=== PATIENT | female | born 1940 | race Caucasian/White ===

== ENCOUNTER 2016-09-11 23:02 | Emergency (ER) | payer MEDICARE, MEDICAID ==
[2016-09-11] MEDS ORDERED: NS 0.9% 1000 ML* 1,000 ML IV ONE (23:34)
--- NOTE | 2016-09-12 00:04 | ED ---
Eduard Brown Rebecca, scribed for Pito Newton MD on 09/11/16 at 2343 . Complex/Multi-Sys Presentation - HPI Summary HPI Summary: Pt is a 76 y/o F who presents to ED with a CC of generalized weakness and uncontrolled DM. Pt reports that starting "a few" days ago her "diabetes has been acting up." Per family member, her last BG tonight was 464 after which she was given 3 units of insulin (typical treatment). Additionally c/o moderate CP, ranked 6/10. PMHx anemia - receives "shots" every 4 weeks. Last saw her PCP 1 month ago, has an appointment on Wednesday (2 days from today). - History Of Current Complaint Chief Complaint: EDChestPainROMI Time Seen by Provider: 09/11/16 23:19 Hx Obtained From: Patient, Family/Charter Coach Driver - Family member Onset/Duration: Lasting Days, Still Present Timing: Constant Severity Currently: Moderate Location: Pain At: - Chest Aggravating Factor(s): Nothing Alleviating Factor(s): Nothing Associated Signs And Symptoms: Positive: Weakness - Generalized, Chest Pain, Other - uncontrolled DM - Allergies/Home Medications Allergies/Adverse Reactions: Allergies Allergy/AdvReac Type Severity Reaction Status Date / Time Codeine Allergy Intermediate Rash Verified 01/21/16 16:56 Levofloxacin [From Levaquin] Allergy Intermediate Agitation Verified 01/21/16 16 :56 Sulfa Antibiotics Allergy Intermediate Rash And Verified 01/21/16 16:56 Itching Home Medications: Home Medications Ascorbic Acid TAB* [Vitamin C TAB*] 1,000 mg PO DAILY 09/12/16 [History Confirmed 09/12/16] Aspirin [Aspirin 81 MG TAB] 81 mg PO DAILY 09/12/16 [History Confirmed 09/12/16] Pantoprazole TAB (NF) [Protonix TAB (NF)] 40 mg PO DAILY 09/12/16 [History Confirmed 09/12/16] PMH/Surg Hx/FS Hx/Imm Hx Endocrine/Hematology History: Reports: Hx Anticoagulant Therapy, Hx Blood Transfusions, Hx Diabetes - Type 2, Hx Thyroid Disease - Hypothyroidism, Hx Anemia, 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 Denies: Hx Systemic Lupus Erythematosus Cardiovascular History: Reports: Hx Angina, Hx Auto Implanted Cardiovert Defib, Hx Congestive Heart Failure, Hx Coronary Artery Disease, Hx Deep Vein Thrombosis - Man-made clot caused by nurse 40+ years ago, Hx Hypercholesterolemia, Hx Hypertension, Hx Pacemaker/ICD, Hx Valvular Heart Disease, Other Cardiovascular Problems/Disorders - Aortic valve replacement, bradycardia, cardiac catherization Denies: Hx Myocardial Infarction, Hx Rheumatic Fever, Hx Syncope Respiratory History: Reports: Hx Asthma, Hx Chronic Obstructive Pulmonary Disease (COPD), Hx Pneumonia Denies: Hx Lung Cancer, Hx Sleep Apnea GI History: Reports: Hx Ulcer - Peptic ulcer disease, Other GI Disorders - gastric bypass Denies: Hx Gastroesophageal Reflux Disease History: Reports: Other Problems/Disorders - UTIs, CKD Denies: Hx Kidney Stones, Hx Renal Disease Musculoskeletal History: Reports: Hx Arthritis - Rheumatoid, Hx Rheumatoid Arthritis, Hx Back Problems, Hx Osteoporosis Denies: Hx Gout, Hx Orthopedic Injury Sensory History: Reports: Hx Cataracts, Hx Contacts or Glasses, Other Sensory Impairments - Retinoplasty Denies: Hx Hearing Problem Opthamlomology History: Reports: Hx Cataracts, Hx Contacts or Glasses, Other Sensory Impairments - Retinoplasty Neurological History: Denies: Hx Dementia, Hx Developmental Delay, Hx Headaches, Hx Migraine, Hx Nerve Disease, Hx Seizures, Hx Spinal Cord Injury, Hx Transient Ischemic Attacks (TIA), Other Neuro Impairments/Disorders Psychiatric History: Reports: Hx Depression - Not currently - Cancer History Cancer Type, Location and Year: Two sisters had breast cancer - Surgical History Surgery Procedure, Year, and Place: Hysterectomy. Appendectomy. Tonsillectomy. Bilateral Knee Arthroscopy. Diabetic Retinopathy-eye surgery. Bilateral Cataract removal. Sinus Surgery. Florentin-en-y gastric bypass, 2007. Cholecystecomy 2009. Carpal Tunnel Surgery. Aortic Valve replacement, 2016, [facility] Hx Anesthesia Reactions: No - Immunization History Date of Tetanus Vaccine: utd Date of Influenza Vaccine: utd Infectious Disease History: Reports: Hx Clostridium Difficile - was under OP treatment, now IP. Denies: Hx Hepatitis, Hx Human Immunodeficiency Virus (HIV), Hx of Known/ Suspected MRSA, Hx Shingles, Hx Tuberculosis, Hx Known/Suspected VRE, Hx Known/ Suspected VRSA, History Other Infectious Disease, Traveled Outside the [place] in Last 30 Days - Family History Known Family History: Positive: Cardiac Disease, Diabetes, Other - Breast Cancer - Social History Alcohol Use: Rare Substance Use Type: Reports: None Hx Tobacco Use: Yes - quit > 20 yrs ago Smoking Status (MU): Former Smoker Type: Cigarettes Have You Smoked in the Last Year: No Review of Systems Positive: Other - Generalized weakness; uncontrolled DM Positive: Chest Pain - Moderate 08/01 All Other Systems Reviewed And Are Negative: Yes Physical Exam Triage Information Reviewed: Yes Vital Signs On Initial Exam: Initial Vitals Temp Pulse Resp BP Pulse Ox 97.3 F 65 20 134/56 99 09/11/16 23:09 09/11/16 23:09 09/11/16 23:09 09/11/16 23:09 09/11/16 23:09 Vital Signs Reviewed: Yes Appearance: Positive: Ill-Appearing, Pain Distress - mild discomfort, Thin Skin: Positive: Warm, Pale Head/Face: Positive: Normal Head/Face Inspection Eyes: Positive: NEMO Neck: Positive: Supple Respiratory/Lung Sounds: Positive: Clear to Auscultation, Breath Sounds Present Cardiovascular: Positive: RRR Abdomen Description: Positive: Nontender, Soft Bowel Sounds: Positive: Present Musculoskeletal: Positive: Strength/ROM Intact Neurological: Positive: Alert, Oriented to Person Place, Time Diagnostics - Vital Signs Vital Signs Temp Pulse Resp BP Pulse Ox 09/11/16 23:09 97.3 F 65 20 134/56 99 - Laboratory Result Diagrams: 09/12/16 00:50 09/12/16 00:50 Lab Statement: Any lab studies that have been ordered have been reviewed, and results considered in the medical decision making process. - Radiology CXR Xray Interpretation: No Acute Changes Radiology Interpretation Completed By: ED Physician - EKG 2318 Cardiac Rate: NL - 62 bpm EKG Interpretation: Paced rhythm, no STEMI Re-Evaluation - Re-Evaluation First Eval Re-Evaluation Time: 01:50 Change: Unchanged Comment: Discussed CXR, EKG and lab findings with the pt and her family member as well as D/C plan. She is stable. Complex Multi-Symp Course/Dx Assessment/Plan: Pt is a 76 y/o F who presents to ED with a CC of generalized weakness and uncontrolled DM. Pt reports that starting "a few" days ago her "diabetes has been acting up." Per family member, her last BG tonight was 464 after which she was given 3 units of insulin (typical treatment). Additionally c /o moderate CP, ranked /. PMHx anemia - receives "shots" every 4 weeks. Last saw her PCP 1 month ago, has an appointment on Wednesday (2 days from today). EKG reveals paced rhythm. CXR reveals no acute findings. She will be D/C to home with Dx of generalized weakness. She understands and agrees. - Diagnoses Provider Diagnoses: Generalized weakness Discharge - Discharge Plan Condition: Stable Disposition: HOME Patient Education Materials: Weakness (ED) Referrals: Vanesa Alexandra, CHAIN MAKER MACHINE [Primary Care Provider] - 3 Days The documentation as recorded by the Eduard jc Rebecca accurately reflects the service I personally performed and the decisions made by me, Pito Newton MD.
[2016-09-12 01:03] LABS: Hematocrit 27 % (35-47); Hemoglobin 8.5 g/dl (12.0-16.0); Mean Corpuscular HGB Conc 32 g/dl (31-36); Mean Corpuscular Hemoglobin 31 pg (27-31); Mean Corpuscular Volume 96 fL (80-97); Mean Platelet Volume 9 um3 (7.4-10.4); Red Blood Count 2.78 10^6/ul (4.0-5.4); Red Cell Distribution Width 15 % (10.5-15); White Blood Count 6.7 10^3/ul (3.5-10.8)
[2016-09-12 01:18] LABS: Albumin 2.8 g/dL (3.2-5.2); BUN/Creatinine Ratio 40.2 (8-20); Calcium 8.3 mg/dL (8.6-10.3); EGFR African American 57.7 (>60); EGFR Non-African American 44.9 (>60); Magnesium 2.1 mg/dL (1.9-2.7); Potassium 5.2 mmol/L (3.5-5.0); Total Bilirubin 0.2 mg/dL (0.2-1.0); Total Protein 6.8 g/dL (6.4-8.9)
[2016-09-12 01:21] LABS: Troponin I 0.03 ng/mL (<0.04)
[2016-09-12 02:05] VITALS: BP 123/51
[2016-09-12 02:28] LABS: TSH (Thyroid Stimulating Horm) 3.48 mcIU/mL (0.34-5.60)
--- NOTE | 2016-09-12 07:16 | RAD ---
INDICATION: Weakness. COMPARISON: Comparison is made with a prior chest x-ray study from November 13, 2015. Correlation is made with prior chest x-ray studies from December 09, 2012, December 28, 2014 and November 13, 2015. Correlation is also made with a prior CT angiogram of the chest from November 13, 2015. TECHNIQUE: Dual-energy PA and lateral views of the chest were obtained. FINDINGS: There is a dual-chamber transvenous pacemaker present. There is a metallic stent overlying the aortic valve region. The heart is within normal limits in size. There is a faint 6 mm nodule which projects over the right midlung. This is only seen in the PA view and is not seen on prior studies. The lungs are otherwise clear. No pleural effusion is seen. The results of this exam were discussed with the referring clinician. IMPRESSION: 1. NO EVIDENCE FOR ACUTE FINDING. 2. POSSIBLE RIGHT LUNG PULMONARY NODULE. RECOMMEND A NONCONTRAST CT OF THE CHEST FOR FURTHER EVALUATION.
== END 2016-09-12 02:05 | disposition home or self-care (01) ==
LOC: ED 23:02
DX: R53.1 Weakness (principal); Z87.891 Personal history of nicotine dependence; Z79.01 Long term (current) use of anticoagulants; M06.9 Rheumatoid arthritis, unspecified; E03.9 Hypothyroidism, unspecified; E11.8 Type 2 diabetes mellitus with unspecified complications; Z88.5 Allergy status to narcotic agent; Z88.2 Allergy status to sulfonamides; Z79.82 Long term (current) use of aspirin; J44.9 Chronic obstructive pulmonary disease, unspecified
CPT/HCPCS: 36415; 71020; 80053; 83605; 83735; 84443; 84484; 85025; 93005; 96360; 99283

== ENCOUNTER 2016-11-09 11:21 | Inpatient (IN) | payer MEDICARE, MEDICAID ==
--- NOTE | 2016-11-09 13:37 | RAD ---
Indication: Shortness of breath. 2 views of the chest and shape no mediastinal shift. Pacemaker leads are in place. Mild interstitial edema is noted. When compared to previous exam of September 11, 2016 no significant change is noted. There is likely superimposed COPD. Patient is status post aortic valve replacement. IMPRESSION: Likely vascular congestion superimposed upon COPD. No pneumonia is noted.
[2016-11-09 13:54] LABS: Hematocrit 25 % (35-47); Mean Corpuscular HGB Conc 32 g/dl (31-36); Mean Corpuscular Hemoglobin 30 pg (27-31); Mean Corpuscular Volume 92 fL (80-97); Mean Platelet Volume 9 um3 (7.4-10.4); Red Blood Count 2.67 10^6/ul (4.0-5.4); Red Cell Distribution Width 15 % (10.5-15); White Blood Count 8.6 10^3/ul (3.5-10.8)
--- NOTE | 2016-11-09 14:06 | ED ---
Sarthak Brown Alfonso, scribed for Casper Moctezuma MD on 11/09/16 at 1238 . Shortness of Breath - HPI Summary HPI Summary: This patient is a 76 year old F [facility] referred from Dr. Archibald accompanied by son with a chief complaint of SOB since 1 week ago. The patient rates the pain 6/10 in severity. Symptoms alleviated by nothing. Patient reports CP (left sided), rib pain, and productive cough (clear phlegm). Patient denies fever. She is been on abx for the last 3 days. PMHx includes IDDM, COPD, and asthma. - History of Current Complaint Chief Complaint: EDShortnessOfBreath Time Seen by Provider: 11/09/16 12:22 Hx Obtained From: Patient Onset/Duration: Sudden Onset, Lasting Weeks - 1, Still Present Timing: Constant Current Severity: Moderate Alleviating Factors: Nothing Associated Signs & Symptoms: Cough (Productive), Chest Pain w/Cough - Allergy/Home Medications Allergies/Adverse Reactions: Allergies Allergy/AdvReac Type Severity Reaction Status Date / Time Codeine Allergy Intermediate Rash Verified 01/21/16 16:56 Levofloxacin [From Levaquin] Allergy Intermediate Agitation Verified 01/21/16 16 :56 Sulfa Antibiotics Allergy Intermediate Rash And Verified 01/21/16 16:56 Itching PMH/Surg Hx/FS Hx/Imm Hx Endocrine/Hematology History: Reports: Hx Anticoagulant Therapy, Hx Blood Transfusions, Hx Diabetes - Type 2, Hx Thyroid Disease - Hypothyroidism, Hx Anemia, 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 Denies: Hx Systemic Lupus Erythematosus Cardiovascular History: Reports: Hx Angina, Hx Auto Implanted Cardiovert Defib, Hx Congestive Heart Failure, Hx Coronary Artery Disease, Hx Deep Vein Thrombosis - Man-made clot caused by nurse 40+ years ago, Hx Hypercholesterolemia, Hx Hypertension, Hx Pacemaker/ICD, Hx Valvular Heart Disease, Other Cardiovascular Problems/Disorders - Aortic valve replacement, bradycardia, cardiac catherization Denies: Hx Myocardial Infarction, Hx Rheumatic Fever, Hx Syncope Respiratory History: Reports: Hx Asthma, Hx Chronic Obstructive Pulmonary Disease (COPD), Hx Pneumonia Denies: Hx Lung Cancer, Hx Sleep Apnea GI History: Reports: Hx Ulcer - Peptic ulcer disease, Other GI Disorders - gastric bypass Denies: Hx Gastroesophageal Reflux Disease History: Reports: Other Problems/Disorders - UTIs, CKD Denies: Hx Kidney Stones, Hx Renal Disease Musculoskeletal History: Reports: Hx Arthritis - Rheumatoid, Hx Rheumatoid Arthritis, Hx Back Problems, Hx Osteoporosis Denies: Hx Gout, Hx Orthopedic Injury Sensory History: Reports: Hx Cataracts, Hx Contacts or Glasses, Other Sensory Impairments - Retinoplasty Denies: Hx Hearing Problem Opthamlomology History: Reports: Hx Cataracts, Hx Contacts or Glasses, Other Sensory Impairments - Retinoplasty Neurological History: Denies: Hx Dementia, Hx Developmental Delay, Hx Headaches, Hx Migraine, Hx Nerve Disease, Hx Seizures, Hx Spinal Cord Injury, Hx Transient Ischemic Attacks (TIA), Other Neuro Impairments/Disorders Psychiatric History: Reports: Hx Depression - Not currently - Cancer History Cancer Type, Location and Year: Two sisters had breast cancer - Surgical History Surgery Procedure, Year, and Place: Hysterectomy. Appendectomy. Tonsillectomy. Bilateral Knee Arthroscopy. Diabetic Retinopathy-eye surgery. Bilateral Cataract removal. Sinus Surgery. Florentin-en-y gastric bypass, 2007. Cholecystecomy 2008. Carpal Tunnel Surgery. Aortic Valve replacement, 2016, [facility] Anesthesia Reactions: No - Immunization History Date of Tetanus Vaccine: utd Date of Influenza Vaccine: utd Infectious Disease History: No Infectious Disease History: Reports: Hx Clostridium Difficile - was under OP treatment, now IP. Denies: Hx Hepatitis, Hx Human Immunodeficiency Virus (HIV), Hx of Known/ Suspected MRSA, Hx Shingles, Hx Tuberculosis, Hx Known/Suspected VRE, Hx Known/ Suspected VRSA, History Other Infectious Disease, Traveled Outside the [place] in Last 30 Days - Family History Known Family History: Positive: Cardiac Disease, Diabetes, Other - Breast Cancer - Social History Alcohol Use: Rare Substance Use Type: Reports: None Hx Tobacco Use: Yes - quit > 20 yrs ago Smoking Status (MU): Former Smoker Type: Cigarettes Have You Smoked in the Last Year: No Review of Systems Negative: Fever Positive: Chest Pain Positive: Shortness Of Breath, Cough Positive: Other - rib pain All Other Systems Reviewed And Are Negative: Yes Physical Exam Triage Information Reviewed: Yes Vital Signs On Initial Exam: Initial Vitals Temp Pulse Resp BP Pulse Ox 97.3 F 69 17 110/65 100 11/09/16 11:22 11/09/16 11:22 11/09/16 11:22 11/09/16 11:22 11/09/16 11:22 Vital Signs Reviewed: Yes Appearance: Positive: Well-Appearing, No Pain Distress Skin: Positive: Warm, Skin Color Reflects Adequate Perfusion, Dry Head/Face: Positive: Normal Head/Face Inspection Eyes: Positive: Normal ENT: Positive: Normal ENT inspection Neck: Positive: Supple, Nontender Respiratory/Lung Sounds: Positive: Breath Sounds Present, Other - Wet cough Cardiovascular: Positive: RRR Abdomen Description: Positive: Nontender, Soft Bowel Sounds: Positive: Present Musculoskeletal: Positive: Other - Mild pitting edema bilaterally Neurological: Positive: Normal, Sensory/Motor Intact, Alert, Oriented to Person Place, Time Psychiatric: Positive: Affect/Mood Appropriate Diagnostics - Vital Signs Vital Signs Temp Pulse Resp BP Pulse Ox 11/09/16 12:20 97.1 F 62 20 133/62 99 11/09/16 11:22 97.3 F 69 17 110/65 100 - Laboratory Lab Results: Lab Results 11/09/16 Range/Units 13:35 WBC 8.6 (3.5-10.8) 10^3/ul RBC 2.67 L (4.0-5.4) 10^6/ul Hgb 8.0 L (12.0-16.0) g/dl Hct 25 L (35-47) % MCV 92 (80-97) fL MCH 30 (27-31) pg MCHC 32 (31-36) g/dl RDW 15 (10.5-15) % Plt Count 172 (150-450) 10^3/ul MPV 9 (7.4-10.4) um3 Neut % (Auto) 83.9 H (38-83) % Lymph % (Auto) 8.4 L (25-47) % [place] % (Auto) 4.8 (1-9) % Eos % (Auto) 2.4 (0-6) % Baso % (Auto) 0.5 (0-2) % Absolute Neuts (auto) 7.2 (1.5-7.7) 10^3/ul Absolute Lymphs (auto) 0.7 L (1.0-4.8) 10^3/ul Absolute Monos (auto) 0.4 (0-0.8) 10^3/ul Absolute Eos (auto) 0.2 (0-0.6) 10^3/ul Absolute Basos (auto) 0 (0-0.2) 10^3/ul Absolute Nucleated RBC 0 10^3/ul Nucleated RBC % 0 Result Diagrams: 11/09/16 13:35 Lab Statement: Any lab studies that have been ordered have been reviewed, and results considered in the medical decision making process. Course/Dx - Course Course Of Treatment: Ms. Brittanie Carter presented with SOB which has been coming on for the last few days. She has been on outpatient Abx but is not sure what. She is anemic and has some pulmonary edema and underlying COPD. She is being admitted to the hospitalist service. - Diagnoses Provider Diagnoses: Respiratory insufficiency - Physician Notifications Discussed Care of Patient With: Maude Seo Time Discussed With Above Provider: 12:42 Instructed by Provider To: Other - Consulted Dr. Seo (hospitalist) regarding the pt. - Critical Care Time Critical Care Time: 30-74 min Discharge - Discharge Plan Condition: Stable Disposition: ADMITTED TO [facility] Referrals: Vanesa Alexandra, BASKET MAKER [Primary Care Provider] - The documentation as recorded by the Sarthak jc Alfonso accurately reflects the service I personally performed and the decisions made by me, Casper Moctezuma MD.
[2016-11-09 14:17] LABS: ALT 7 U/L (7-52); Albumin 3.1 g/dL (3.2-5.2); Alkaline Phosphatase 55 U/L (34-104); BUN/Creatinine Ratio 27.5 (8-20); Blood Urea Nitrogen 36 mg/dL (6-24); C Reactive Protein 44.08 mg/L (< 5.00); CO2 Carbon Dioxide 22 mmol/L (22-32); Calcium 8.4 mg/dL (8.6-10.3); Chloride 107 mmol/L (101-111); EGFR African American 50.6 (>60); EGFR Non-African American 39.4 (>60); Glucose 129 mg/dL (70-100); Sodium 134 mmol/L (133-145); Total Protein 7.1 g/dL (6.4-8.9)
[2016-11-09 14:18] LABS: Troponin I 0.05 ng/mL (<0.04)
[2016-11-09] MEDS ORDERED: methylPREDNISolone 125 MG* 2 ML VIAL IV ONE (14:24)
[2016-11-09] MEDS ORDERED: Furosemide IV* 10 MG/ML 10 ML VIAL (100 MG) IV ONE (14:24)
[2016-11-09 15:01] LABS: Anion Gap 5 mmol/L (2-11)
--- NOTE | 2016-11-09 17:35 | ADMNOTE ---
Subjective Date of Service: 11/09/16 Interval History: ADMISSION HISTORY AND PHYSICAL EXAM: Allergies Allergy/AdvReac Type Severity Reaction Status Date / Time Codeine Allergy Intermediate Rash Verified 01/21/16 16:56 Levofloxacin [From Levaquin] Allergy Intermediate Agitation Verified 01/21/16 16 :56 Sulfa Antibiotics Allergy Intermediate Rash And Verified 01/21/16 16:56 Itching Home Medications Medication Instructions Recorded Confirmed Type Ferrous Sulfate TAB* 325 mg PO DAILY 07/16/14 09/12/16 History Levothyroxine TAB* [Synthroid 25 25 mcg PO DAILY 12/28/14 09/12/16 History MCG TAB*] Simvastatin (NF) [Zocor (NF)] 40 mg PO DAILY 12/28/14 09/12/16 History Cyanocobalamin TAB* [Vitamin B12 600 mcg PO BID 03/25/15 09/12/16 History TAB*] Carvedilol TAB* [Coreg TAB*] 12.5 mg PO BID #0 05/03/15 09/12/16 History Nitroglycerin TAB 0.4 MG* 0.4 mg SL Q5M PRN 05/03/15 09/12/16 History Hydroxychloroquine TAB* [Plaquenil 400 mg PO DAILY 10/25/15 09/12/16 History TAB*] Albuterol 2.5MG/3ML (0.083%)* 2.5 mg INH QID PRN 10/31/15 09/12/16 History [Ventolin 2.5 MG/3 ML NEB.SHERRI*] Calcium Carbonate (Antacid) [Tums 1,000 mg PO BID 10/31/15 09/12/16 History Ultra 1000] Insulin NPH Isophane & Reg (Hu 10 units SUBCUT QPM 10/31/15 09/12/16 History [Humulin 70/30 Kwikpen (70-30) 100 Unit/ml] Insulin NPH Isophane & Reg (Hu 20 units SUBCUT QAM 10/31/15 09/12/16 History [Humulin 70/30 Kwikpen (70-30) 100 Unit/ml] Lisinopril TAB* [Prinivil TAB 5 2.5 mg PO DAILY 10/31/15 09/12/16 History MG*] amLODIPine TAB* [Norvasc 5 mg TAB*] 10 mg PO DAILY 10/31/15 09/12/16 History Torsemide [Demadex 10 MG-] 10 mg PO DAILY 12/05/15 09/12/16 History guaiFENesin ER TAB [Mucinex*] 600 mg PO DAILY 12/05/15 09/12/16 History Ascorbic Acid TAB* [Vitamin C 1,000 mg PO DAILY 09/12/16 09/12/16 History TAB*] Aspirin [Aspirin 81 MG TAB] 81 mg PO DAILY 09/12/16 09/12/16 History Pantoprazole TAB (NF) [Protonix 40 mg PO DAILY 09/12/16 09/12/16 History TAB (NF)] HPI: The patient has been coughing and SOB about a week. She was recently started on tofacitinib (Xeljanz) for RA, but Dr. Shelley stopped it due to her cough and possible immunosuppression-related resp infection. She does not weigh herself. She eats a low-salt diet. She denies sweats, chills. She took her temperature and it was normal at home. She ate less today and only took 7 units of insulin instead of her usual 10. She generally does not take her prescribed evening dose of insulin. No one else in her home has been ill recently. Family History: Findings - unrmarkable Social History: Findings - Quit smoking 40+ yrs ago. No alcohol abuse. Lives with her son and his children Past Medical History: Findings - TAVR 03/2015 in [place]. RA, DM, monthly EPO for anemia per Dr. Broderick Review of Systems - Measurements Intake and Output: Intake and Output Last 24 Hours 11/07/16 11/08/16 11/09/16 11/10/16 06:59 06:59 06:59 06:59 Weight 140 lb - Review of Systems Constitutional Symptoms: Negative: Weight Gain, Weight Loss, Weakness, Fatigue, Fever, Night Sweats, Unexplained Falls, Other Dermatology: Positive: Normal HEENT: Positive: Normal Eyes: Positive: Normal Thyroid: Positive: Normal Pulmonary: Positive: Cough, Shortness of Breath Cardiology: Positive: Normal Gastroenterology: Positive: Anorexia Musculoskeletal: Positive: Joint Pain, Joint Stiffness, Arthritis Endocrinology: Positive: Diabetes Mellitus Hematologic/Lymphatic: Positive: Anemia Neurology: Positive: Normal Psychiatry: Positive: Normal Allergic/Immunologic: Negative: Hx Anaphylaxis, Hx Angioedema, Hx Environmental, Hx Seasonal, Athsma, Hx HIV, Immunocompromise, Swollen Glands LymphNodes, Other Objective Vital Signs 11/09/16 11/09/16 11/09/16 11:22 12:20 12:22 Temperature 97.3 F 97.1 F Pulse Rate 69 62 64 Respiratory 17 20 Rate Blood Pressure 110/65 133/62 (mmHg) O2 Sat by Pulse 100 99 98 Oximetry 11/09/16 11/09/16 11/09/16 12:31 13:00 14:00 Temperature Pulse Rate 75 61 60 Respiratory 25 20 19 Rate Blood Pressure 143/65 141/62 (mmHg) O2 Sat by Pulse 99 97 98 Oximetry 11/09/16 11/09/16 11/09/16 14:43 14:57 15:10 Temperature Pulse Rate 63 62 Respiratory 19 19 Rate Blood Pressure 147/66 145/62 (mmHg) O2 Sat by Pulse 98 98 Oximetry 11/09/16 15:11 Temperature Pulse Rate 73 Respiratory 14 Rate Blood Pressure (mmHg) O2 Sat by Pulse 92 Oximetry Oxygen Devices in Use Now: None Appearance: Alert, partly up in bed. In fair spirits. Frequent mild dry cough during my visit. Eyes: No Scleral Icterus Neck: NL Appearance and Movements; NL JVP, No Thyroid Enlargement, Masses Respiratory: Symmetrical Chest Expansion and Respiratory Effort, Clear to Auscultation, Clear to Percussion Cardiovascular: NL Sounds; No Murmurs; No JVD, RRR, No Edema, - Abdominal: NL Sounds; No Tenderness; No Distention, No Hepatosplenomegaly, - Extremities: No Edema, No Clubbing, Cyanosis Skin: No Rash or Ulcers, No Nodules or Sclerosis Neurological: Alert and Oriented x 3, NL Sensation Result Diagrams: 11/09/16 13:35 11/09/16 13:35 Additional Lab and Data: Lab Results 11/09/16 Range/Units 13:35 WBC 8.6 (3.5-10.8) 10^3/ul RBC 2.67 L (4.0-5.4) 10^6/ul Hgb 8.0 L (12.0-16.0) g/dl Hct 25 L (35-47) % MCV 92 (80-97) fL MCH 30 (27-31) pg MCHC 32 (31-36) g/dl RDW 15 (10.5-15) % Plt Count 172 (150-450) 10^3/ul MPV 9 (7.4-10.4) um3 Neut % (Auto) 83.9 H (38-83) % Lymph % (Auto) 8.4 L (25-47) % [place] % (Auto) 4.8 (1-9) % Eos % (Auto) 2.4 (0-6) % Baso % (Auto) 0.5 (0-2) % Absolute Neuts (auto) 7.2 (1.5-7.7) 10^3/ul Absolute Lymphs (auto) 0.7 L (1.0-4.8) 10^3/ul Absolute Monos (auto) 0.4 (0-0.8) 10^3/ul Absolute Eos (auto) 0.2 (0-0.6) 10^3/ul Absolute Basos (auto) 0 (0-0.2) 10^3/ul Absolute Nucleated RBC 0 10^3/ul Nucleated RBC % 0 Assess/Plan/Problems-Billing Assessment: - Patient Problems (1) CHF (congestive heart failure) Current Visit: Yes Status: Acute Code(s): I50.9 - HEART FAILURE, UNSPECIFIED SNOMED Code(s): 57734067 Comment: BNP elevated. Reduced LVEF 03/2105, will repeat echo 11/10. Received furosemide 60 mg IV in ED as well as methylpednisolone. Dr. Lowry is her tennis director locally. Exam benign but pt states she voided twice, a large amount each time, before I saw her in the ED. (2) Rheumatoid arthritis Current Visit: No Status: Chronic Priority: Low Code(s): M06.9 - RHEUMATOID ARTHRITIS, UNSPECIFIED SNOMED Code(s): 09527278 Comment: Continue hydoxychloroquine. Fup Dr. Shelley. (3) Anemia Current Visit: No Status: Acute Priority: High Onset Date: 06/28/14 Code (s): D64.9 - ANEMIA, UNSPECIFIED SNOMED Code(s): 729759510 Comment: Was scheduled for monthly EPO the DOA, can catch up with Dr. Broderick after discharge. (4) Diabetes Current Visit: No Status: Chronic Priority: Medium Code(s): E11.9 - TYPE 2 DIABETES MELLITUS WITHOUT COMPLICATIONS SNOMED Code(s): 48258844 Comment: Expect high glucose values for a day or so after IV methylprednisolone 125 mg in ED 11/09. Lispro SS ordered. Can resume her insulin pen on discharge.
[2016-11-09] MEDS ORDERED: Nitroglycerin TAB 0.4 MG* 0.4 MG TAB SL PRN (17:53)
[2016-11-09] MEDS ORDERED: Albuterol 2.5 MG/3 ML NEB.SOL* (0.083%) INH PRN (17:53)
[2016-11-09] MEDS ORDERED: Dextrose 50% Syringe 50 ML* 25 GM/50 ML SYRINGE IV PUSH PRN (18:17)
[2016-11-09] MEDS: Carvedilol TAB* 6.25 MG PO SCH (20:40)
[2016-11-09] MEDS: Benzonatate CAP* 100 MG PO SCH (20:40)
[2016-11-09] MEDS: Calcium Carbonate CHEW TAB* 500 MG (TUMS) PO SCH (20:44)
[2016-11-09] MEDS: Insulin LISPRO* 1 UNITS UNIT SUBCUT SCH (20:48)
[2016-11-09] MEDS: Heparin VIAL(*) 5000 UNITS/ML VIAL (FIVE THOUSAND) SUBCUT SCH (22:49)
[2016-11-10] MEDS ORDERED: guaiFENesin LIQ* 100 MG/5 ML UDC PO PRN (02:50)
[2016-11-10] MEDS: Levothyroxine TAB* 25 MCG TAB PO SCH (06:08)
[2016-11-10] MEDS: Heparin VIAL(*) 5000 UNITS/ML VIAL (FIVE THOUSAND) SUBCUT SCH ×3 (06:09→22:17)
[2016-11-10] MEDS: Torsemide TAB* 20 MG PO SCH (08:51)
[2016-11-10] MEDS: Hydroxychloroquine TAB* 200 MG PO SCH (08:52)
[2016-11-10] MEDS: Omeprazole CAP* 20 MG PO SCH (08:53)
[2016-11-10] MEDS: Benzonatate CAP* 100 MG PO SCH ×3 (08:53→22:19)
[2016-11-10] MEDS: Calcium Carbonate CHEW TAB* 500 MG (TUMS) PO SCH ×2 (08:53→22:21)
[2016-11-10] MEDS: Aspirin EC Low Dose* 81 MG TAB.EC PO SCH (08:54)
[2016-11-10] MEDS: Lisinopril TAB* 5 MG PO SCH (08:54)
[2016-11-10] MEDS: Atorvastatin* 20 MG TAB PO SCH (08:54)
[2016-11-10] MEDS: Ferrous Sulfate TAB* 325 MG PO SCH (08:54)
[2016-11-10] MEDS: guaiFENesin ER TAB 600 MG PO SCH (08:55)
[2016-11-10] MEDS: Insulin LISPRO* 1 UNITS UNIT SUBCUT SCH ×4 (08:55→22:10)
[2016-11-10] MEDS: Carvedilol TAB* 6.25 MG PO SCH ×2 (08:55→22:20)
--- NOTE | 2016-11-10 11:52 | ECHO ---
Patient: LEATHA AMAYA [facility] Rec#: [id number] : 1940 Date: 11/10/2016 Age: 76y Height: 165.1 cm / 65.0 in Weight: 63.5 kg / 140.0 lbs Sex: F BSA: 1.7 Room#: [facility] Admit Date#: 11/09/2016 Type: Inpatient Referring: Gordy Mccormick MD Reading: Gino Marroquin MD [employer] Liner Helper: Iman Carlton,JULIANNA,RDMS CC: Vanesa Alexandra, STARR Transthoracic Echocardiogram Indication: CHF BP: 135/58 HR: 69 Rhythm: NSR Findings History: TAVR, anemia, DM, COPD, AFIB, pacemaker, HTN, HLD Technical Comments: The study quality is good. Completed 1110 Left Ventricle: The left ventricular chamber size is normal. Mild concentric left ventricular hypertrophy is observed. Basal interventricular septum shows moderate thickening. Global left ventricular wall motion and contractility are within normal limits. Left ventricular systolic function is at the lower limits of normal. The estimated ejection fraction is 50-55%. Post surgical hypokinesis of the interventricular septum is observed consistent with valve replacement. There is abnormal ventricular septal wall motion consistent with right ventricular pacemaker. Abnormal left ventricular diastolic filling is observed, consistent with impaired relaxation. Left Atrium: The left atrium is moderately dilated. Right Ventricle: The right ventricular chamber size and systolic function are within normal limits. Right Atrium: The right atrium is mild to moderately dilated. A pacemaker wire is visualized in the right atrium. Aortic Valve: There is a trace of aortic regurgitation. The mean gradient of the aortic valve is 8.8 mmHg. The aortic valve area, by peak velocities, is calculated at 2 cm2. A bio-prosthetic aortic valve is present. The prosthetic aortic valve leaflets are normal. The bio-prosthetic aortic valve appears to be functioning normally. Mitral Valve: There is mitral annular calcification. The mitral valve leaflets are mildly thickened. There is mild to moderate mitral regurgitation. There is mild mitral stenosis. Tricuspid Valve: The tricuspid valve leaflets are normal. There is moderate tricuspid regurgitation. There is evidence of mild to moderate pulmonary hypertension. Pulmonic Valve: The pulmonic valve appears normal. There is mild to moderate pulmonic regurgitation. Pericardium: There is no significant pericardial effusion. Aorta: There is no dilatation of the ascending aorta. There is no dilatation of the aortic arch. The aortic root is normal in size. Pulmonary Artery: The main pulmonary artery appears normal. Venous: The inferior vena cava is dilated. There is less than 50% respiratory change in the inferior vena cava dimension. Summary: There are no significant changes when compared to the previous study done on 06/28/15 Conclusions Mild concentric left ventricular hypertrophy is observed. The estimated ejection fraction is 50-55%. Left ventricular systolic function is at the lower limits of normal. Post surgical hypokinesis of the interventricular septum is observed consistent with valve replacement. There is abnormal ventricular septal wall motion consistent with right ventricular pacemaker. A bio-prosthetic aortic valve is present. The prosthetic aortic valve leaflets are normal. The bio-prosthetic aortic valve appears to be functioning normally. There is mild to moderate mitral regurgitation. There is mild mitral stenosis. There is moderate tricuspid regurgitation. There is evidence of mild to moderate pulmonary hypertension. There is no significant pericardial effusion. There are no significant changes when compared to the previous study done on 06/28/15 Measurements Name Value Normal Range RVIDd (AP) 2D 3.3 cm (0.9 - 2.6) RVDdMajor (2D) 3.6 cm (2.2 - 4.4) RAd ISD 4CH 5 cm (3.4 - 4.9) RA (A4C)W 5.5 cm (2.9 - 4.6) IVSd (2D) 1.5 cm (0.6 - 1) LVPWd (2D) 1.1 cm (0.6 - 1) LVIDd (2D) 5.4 cm (3.6 - 5.4) LVIDs (2D) 4.4 cm - LV FS (2D) 18 % (25 - 45) Aortic Annulus 2 cm (1.4 - 2.6) Ascending Ao 3.3 cm (2.1 - 3.4) Aortic arch 2.5 cm (1.8 - 3.4) LA dimension (AP) 2D 3.9 cm (2.3 - 3.8) LAd ISD 4CH 5.6 cm (2.9 - 5.3) LA ISD 4CH W 4.6 cm (2.5 - 4.5) Name Value Normal Range LA ESV SP 4CH (A/L) 79.54 ml - LA ESV SP 2CH (A/L) 61.44 ml - LA ESV BP (A/L) 73.22 ml - LA ESV BP (A/L) index 43 ml/m2 - LA ESV SP 4CH (MOD) 75.3 ml - LA ESV SP 2CH (MOD) 57.3 ml - Name Value Normal Range MV E-wave Vmax 1.1 m/sec - MV deceleration time 124 msec - MV A-wave Vmax 1.5 m/sec - MV E:A ratio 0.7 ratio - LV septal e' Vmax 0.04 m/sec - LV lateral e' Vmax 0.05 m/sec - LV E:e' septal ratio 27.5 ratio - LV E:e' lateral ratio 22 ratio - Name Value Normal Range AV Vmax 1.9 m/sec - AV VTI 50 cm - AV peak gradient 14 mmHg - AV mean gradient 8.8 mmHg - LVOT diameter 2 cm - LVOT Vmax 1.2 m/sec - LVOT VTI 29.4 cm - LVOT peak gradient 6 mmHg - LVOT mean gradient 2.9 mmHg - DOI (VTI) 0.6 ratio - ITA (continuity Vmax) 2 cm2 - ITA (continuity VTI) 2 cm2 - AR PHT 515.8 msec - AR peak gradient 55.85 mmHg - Name Value Normal Range MV Vmax 1.7 m/sec - MV VTI 48 cm - MV peak gradient 12 mmHg - MV mean gradient 4.8 mmHg - MV PHT 76 msec - MR Vmax 5.8 m/sec - MR VTI 221 cm - MR volume (PISA) 32 ml - MR flow (PISA) 76 ml/sec - MR ERO 14 cm2 - MR PISA radius 0.7 cm - MR alias Vmax 27 cm/sec - MVA (PHT) 2.9 cm2 - MVA (continuity VTI) 2 cm2 - Name Value Normal Range TR Vmax 3 m/sec - TR peak gradient 36 mmHg - RAP 8 mmHg - RVSP 44 mmHg - IVC diameter 2.3 cm - Name Value Normal Range PV Vmax 1 m/sec - PV peak gradient 4 mmHg -
[2016-11-10] MEDS ORDERED: Insulin LISPRO* 1 UNITS UNIT SUBCUT ONE ×2 (17:47→17:57)
[2016-11-10] MEDS ORDERED: Dextrose 50% Syringe 50 ML* 25 GM/50 ML SYRINGE IV PUSH PRN (17:47)
--- NOTE | 2016-11-10 21:31 | PN ---
Subjective Date of Service: 11/10/16 Interval History: Pt with coughing spasm last night with associated SOB. But otherwise feeling improved. Had gained back a lot of weight (after joe of gastric bypass) Family History: Findings - unrmarkable Social History: Findings - Quit smoking 40+ yrs ago. No alcohol abuse. Lives with her son and his children Past Medical History: Findings - TAVR 03/2015 in [place]. RA, DM, monthly EPO for anemia per Dr. Broderick Objective Active Medications: Albuterol (Ventolin 2.5 Mg/3 Ml Neb.Rivka*) 2.5 mg INH QID PRN PRN Reason: SOB/WHEEZING Aspirin (Aspirin Ec Low Dose*) 81 mg PO DAILY [facility] Last Admin: 11/10/16 08:54 Dose: 81 mg Atorvastatin Calcium (Lipitor*) 20 mg PO DAILY [facility] Last Admin: 11/10/16 08:54 Dose: 20 mg Benzonatate (Tessalon Cap*) 200 mg PO TID [facility] Last Admin: 11/10/16 13:29 Dose: 200 mg Calcium Carbonate (Tums*) 1,000 mg PO BID [facility] Last Admin: 11/10/16 08:53 Dose: 1,000 mg Carvedilol (Coreg Tab*) 12.5 mg PO BID [facility] Last Admin: 11/10/16 08:55 Dose: 12.5 mg Dextrose (D50w Syringe 50 Ml*) 12.5 gm IV PUSH .FOR FS < 60 - SS PRN PRN Reason: FS < 60 Ferrous Sulfate (Ferrous Sulfate Tab*) 325 mg PO DAILY [facility] Last Admin: 11/10/16 08:54 Dose: 325 mg Guaifenesin (Mucinex*) 600 mg PO DAILY [facility] Last Admin: 11/10/16 08:55 Dose: 600 mg Guaifenesin (Robitussin*) 5 ml PO Q6H PRN PRN Reason: COUGH Heparin Sodium (Porcine) (Heparin Vial(*)) 5,000 units SUBCUT Q8HR [facility] Last Admin: 11/10/16 13:30 Dose: 5,000 units Hydroxychloroquine Sulfate (Plaquenil Tab*) 400 mg PO DAILY [facility] Last Admin: 11/10/16 08:52 Dose: 400 mg Insulin Glargine (Lantus(*)) 7 units SUBCUT Q12H [facility] Insulin Human Lispro (Humalog*) 0 units SUBCUT ACHS [facility] PRN Reason: Protocol Last Admin: 11/10/16 17:49 Dose: Not Given Levothyroxine Sodium (Synthroid Tab*) 25 mcg PO DAILY@0600 [facility] Last Admin: 11/10/16 06:08 Dose: 25 mcg Lisinopril (Prinivil Tab*) 2.5 mg PO DAILY [facility] Last Admin: 11/10/16 08:54 Dose: 2.5 mg Nitroglycerin (Nitroglycerin Tab 0.4 Mg*) 0.4 mg SL Q5M PRN PRN Reason: ANGINA (Cyanocobalamin (600mcg)) 1 dose PO BID [facility] Last Admin: 11/10/16 16:45 Dose: Not Given Omeprazole (Prilosec Cap*) 20 mg PO DAILY@0730 [facility] Last Admin: 11/10/16 08:53 Dose: 20 mg Torsemide (Demadex*) 10 mg PO DAILY [facility] Last Admin: 11/10/16 08:51 Dose: 10 mg Vital Signs 11/09/16 11/10/16 11/10/16 23:49 03:38 07:33 Temperature 98.2 F 97.7 F Pulse Rate 61 66 Respiratory 20 16 18 Rate Blood Pressure 124/60 128/51 (mmHg) O2 Sat by Pulse 99 98 Oximetry 11/10/16 11/10/16 11/10/16 07:59 11:02 15:30 Temperature 97.7 F 97.7 F 97.9 F Pulse Rate 68 71 61 Respiratory 20 18 20 Rate Blood Pressure 134/58 146/57 133/60 (mmHg) O2 Sat by Pulse 100 98 100 Oximetry 11/10/16 19:28 Temperature 97.7 F Pulse Rate 61 Respiratory 20 Rate Blood Pressure 140/53 (mmHg) O2 Sat by Pulse 100 Oximetry Oxygen Devices in Use Now: None Appearance: no acute distress. Ears/Nose/Mouth/Throat: NL Teeth, Lips, Gums, Mucous Membranes Moist Neck: NL Appearance and Movements; NL JVP, Trachea Midline Respiratory: Symmetrical Chest Expansion and Respiratory Effort, Clear to Auscultation Cardiovascular: - - RRR, no murmurs, JVD to mid-neck. 1+ edema Abdominal: NL Sounds; No Tenderness; No Distention, No Hepatosplenomegaly Lymphatic: No Cervical Adenopathy Extremities: - - 1+ edema Skin: No Rash or Ulcers Neurological: Alert and Oriented x 3, NL Sensation, NL Muscle Strength and Tone Result Diagrams: 11/09/16 13:35 11/10/16 11:37 Additional Lab and Data: Abnormal Lab Results 11/09/16 11/10/16 11/10/16 15:20 03:44 07:33 Potassium TNP Glucose POC Glucose (mg/dL) 313 H 307 H AST TNP 11/10/16 11/10/16 11/10/16 11:29 11:37 11:37 Potassium 5.0 Glucose 355 H POC Glucose (mg/dL) 406 H* AST 10 L 11/10/16 16:30 Potassium Glucose 412 H POC Glucose (mg/dL) AST Assess/Plan/Problems-Billing Assessment: 76 year old female PMH TAVR, IDDMT2 complicated by hypoglycemia and resultant lax insulin control, RA on new likely ?biologic agent presenting with cough productive of clear sputum. BNP 476, Acute diastolic CHF exaccerbation ( improving with diuresis) vs viral bronchitis. ECHO EF 50-55% stable. - Patient Problems (1) Acute diastolic HF (heart failure) Current Visit: No Status: Acute Priority: High Code(s): I50.31 - ACUTE DIASTOLIC (CONGESTIVE) HEART FAILURE SNOMED Code(s): 259577783 Comment: Continue torsemide 10mg daily (increased from home 5mg daily). daily weights, strict io EF stable 55% (2) Diabetes Current Visit: No Status: Chronic Priority: Medium Code(s): E11.9 - TYPE 2 DIABETES MELLITUS WITHOUT COMPLICATIONS SNOMED Code(s): 37450178 Comment: Expect high glucose values for a day or so after IV methylprednisolone 125 mg in ED 11/09. Lispro SS ordered. Lantus 08/28. (3) Cough Current Visit: Yes Status: Acute Code(s): R05 - COUGH SNOMED Code(s): 91593275 Comment: CHF exaccerbation vs viral bronchitis vs medication side effect ( investigate which likely biologic RA agent patient recently started that was temporally correlated to symptoms) Status and Disposition: Medicine, switch to inpatient as required another midnight. Possible d/c 11/11.
[2016-11-10] MEDS ORDERED: Insulin GLARGINE(*) 1 UNITS UNIT SUBCUT ONE (21:47)
[2016-11-10] MEDS: Insulin GLARGINE(*) 1 UNITS UNIT SUBCUT SCH (22:23)
[2016-11-11] MEDS ORDERED: Insulin LISPRO* 1 UNITS UNIT SUBCUT ONE (00:16)
[2016-11-11] MEDS ORDERED: Dextrose 50% Syringe 50 ML* 25 GM/50 ML SYRINGE IV PUSH PRN (00:16)
[2016-11-11] MEDS: Levothyroxine TAB* 25 MCG TAB PO SCH (06:03)
[2016-11-11] MEDS: Heparin VIAL(*) 5000 UNITS/ML VIAL (FIVE THOUSAND) SUBCUT SCH ×3 (06:07→21:36)
[2016-11-11] MEDS ORDERED: Dextrose 50% VIAL 50 ml IV PRN (08:22)
[2016-11-11] MEDS: Insulin LISPRO* 1 UNITS UNIT SUBCUT SCH ×4 (08:23→21:31)
[2016-11-11] MEDS: Torsemide TAB* 20 MG PO SCH (08:54)
[2016-11-11] MEDS: Calcium Carbonate CHEW TAB* 500 MG (TUMS) PO SCH ×2 (08:54→21:49)
[2016-11-11] MEDS: guaiFENesin ER TAB 600 MG PO SCH (08:54)
[2016-11-11] MEDS: Atorvastatin* 20 MG TAB PO SCH (08:56)
[2016-11-11] MEDS: Aspirin EC Low Dose* 81 MG TAB.EC PO SCH (08:56)
[2016-11-11] MEDS: Lisinopril TAB* 5 MG PO SCH (08:56)
[2016-11-11] MEDS: Benzonatate CAP* 100 MG PO SCH ×3 (08:57→21:39)
[2016-11-11] MEDS: Carvedilol TAB* 6.25 MG PO SCH ×2 (08:57→21:47)
[2016-11-11] MEDS: Omeprazole CAP* 20 MG PO SCH (08:57)
[2016-11-11] MEDS: Hydroxychloroquine TAB* 200 MG PO SCH (08:57)
[2016-11-11] MEDS: Ferrous Sulfate TAB* 325 MG PO SCH (08:57)
[2016-11-11] MEDS: Insulin GLARGINE(*) 1 UNITS UNIT SUBCUT SCH ×2 (10:21→21:35)
[2016-11-11] MEDS: Diphenoxylat/Atrop 2.5-0.025M* 1 TAB PO PRN (14:01)
--- NOTE | 2016-11-11 17:38 | PN ---
Subjective Date of Service: 11/11/16 Interval History: Got lantus 8 2200 then 15 lispro converage at 0100 for 360. Pt then felt acutely diaphoretic, weak. Sweat through her gown. BG 48 at 0400. got 1/2 amp dextrose. hypothermic rectally, improved after warm blankets and swapped drenched night gown. Loose green stools. Granddaughter dheeraj was on Amox/ Clavulanate for 3 days prior to admission. Octaviano was the new RA med. Couple coughing fits. Family History: Findings - unrmarkable Social History: Findings - Quit smoking 40+ yrs ago. No alcohol abuse. Lives with her son and his children Past Medical History: Findings - TAVR 03/2015 in [place]. RA, DM, monthly EPO for anemia per Dr. Broderick Objective Active Medications: Albuterol (Ventolin 2.5 Mg/3 Ml Neb.Rivka*) 2.5 mg INH QID PRN PRN Reason: SOB/WHEEZING Aspirin (Aspirin Ec Low Dose*) 81 mg PO DAILY [facility] Last Admin: 11/11/16 08:56 Dose: 81 mg Atorvastatin Calcium (Lipitor*) 20 mg PO DAILY [facility] Last Admin: 11/11/16 08:56 Dose: 20 mg Benzonatate (Tessalon Cap*) 200 mg PO TID [facility] Last Admin: 11/11/16 14:01 Dose: 200 mg Calcium Carbonate (Tums*) 1,000 mg PO BID [facility] Last Admin: 11/11/16 08:54 Dose: 1,000 mg Carvedilol (Coreg Tab*) 12.5 mg PO BID [facility] Last Admin: 11/11/16 08:57 Dose: 12.5 mg Cyanocobalamin (Vitamin B12 Tab*) 500 mcg PO BID [facility] Dextrose (D50w Syringe 50 Ml*) 12.5 gm IV PUSH .FOR FS < 60 - SS PRN PRN Reason: FS < 60 Last Admin: 11/11/16 04:28 Dose: 12.5 gm Dextrose (Dextrose 50% Vial 50 Ml*) 25 ml IV ONCE PRN PRN Reason: hypoglycemia Diphenoxylate HCl/Atropine (Lomotil Tab*) 1 tab PO DAILY PRN PRN Reason: DIARRHEA Last Admin: 11/11/16 14:01 Dose: 1 tab Ferrous Sulfate (Ferrous Sulfate Tab*) 325 mg PO DAILY [facility] Last Admin: 11/11/16 08:57 Dose: 325 mg Guaifenesin (Mucinex*) 600 mg PO DAILY [facility] Last Admin: 11/11/16 08:54 Dose: 600 mg Guaifenesin (Robitussin*) 5 ml PO Q6H PRN PRN Reason: COUGH Last Admin: 11/11/16 00:57 Dose: 5 ml Heparin Sodium (Porcine) (Heparin Vial(*)) 5,000 units SUBCUT Q8HR [facility] Last Admin: 11/11/16 14:01 Dose: 5,000 units Hydroxychloroquine Sulfate (Plaquenil Tab*) 400 mg PO DAILY [facility] Last Admin: 11/11/16 08:57 Dose: 400 mg Insulin Glargine (Lantus(*)) 7 units SUBCUT Q12H [facility] Last Admin: 11/11/16 10:21 Dose: Not Given Insulin Human Lispro (Humalog*) 0 units SUBCUT ACHS [facility] PRN Reason: Protocol Last Admin: 11/11/16 17:00 Dose: 2 units Levothyroxine Sodium (Synthroid Tab*) 25 mcg PO DAILY@0600 [facility] Last Admin: 11/11/16 06:03 Dose: 25 mcg Lisinopril (Prinivil Tab*) 2.5 mg PO DAILY [facility] Last Admin: 11/11/16 08:56 Dose: 2.5 mg Nitroglycerin (Nitroglycerin Tab 0.4 Mg*) 0.4 mg SL Q5M PRN PRN Reason: ANGINA Omeprazole (Prilosec Cap*) 20 mg PO DAILY@0730 [facility] Last Admin: 11/11/16 08:57 Dose: 20 mg Torsemide (Demadex*) 10 mg PO DAILY [facility] Last Admin: 11/11/16 08:54 Dose: 10 mg Vital Signs 11/10/16 11/10/16 11/10/16 19:28 20:00 22:08 Temperature 97.7 F Pulse Rate 61 60 Respiratory 20 20 Rate Blood Pressure 140/53 148/67 (mmHg) O2 Sat by Pulse 100 Oximetry 11/11/16 11/11/16 11/11/16 00:11 07:00 08:02 Temperature 97.4 F Pulse Rate 68 59 Respiratory 20 18 Rate Blood Pressure 125/49 137/56 (mmHg) O2 Sat by Pulse 100 100 Oximetry 11/11/16 11/11/16 11/11/16 08:16 08:53 10:18 Temperature 94.7 F 96.8 F 96.4 F Pulse Rate Respiratory Rate Blood Pressure (mmHg) O2 Sat by Pulse Oximetry 11/11/16 11/11/16 11/11/16 11:41 14:01 15:19 Temperature 97.5 F 97.9 F Pulse Rate 59 59 Respiratory 20 16 17 Rate Blood Pressure 143/64 120/47 (mmHg) O2 Sat by Pulse 99 100 Oximetry 11/11/16 16:10 Temperature Pulse Rate Respiratory 16 Rate Blood Pressure (mmHg) O2 Sat by Pulse Oximetry Oxygen Devices in Use Now: None Appearance: Appears weaker today. No acute distress. Ears/Nose/Mouth/Throat: NL Teeth, Lips, Gums, Mucous Membranes Moist Respiratory: Symmetrical Chest Expansion and Respiratory Effort, Clear to Auscultation Cardiovascular: - - RRR 2/6 systolic murmur loudest at apex, no rubs or gallops Abdominal: NL Sounds; No Tenderness; No Distention, No Hepatosplenomegaly Extremities: - - trace edema Skin: No Rash or Ulcers Neurological: Alert and Oriented x 3, NL Muscle Strength and Tone Result Diagrams: 11/09/16 13:35 11/10/16 11:37 Additional Lab and Data: Laboratory Results - last 24 hr 11/10/16 11/10/16 11/10/16 16:21 20:17 20:45 Glucose 444 H POC Glucose (mg/dL) > 444 H* > 444 H* 11/11/16 11/11/16 11/11/16 00:11 04:15 06:58 Glucose POC Glucose (mg/dL) 361 H 48 L 88 11/11/16 11/11/16 11/11/16 08:10 09:03 11:07 Glucose POC Glucose (mg/dL) 79 84 265 H 11/11/16 16:20 Glucose POC Glucose (mg/dL) 221 H Assess/Plan/Problems-Billing Assessment: 76 year old female H TAVR, IDDMT2 complicated by hypoglycemia and resultant lax insulin control, RA on new CONCETTA inhibitor Xeljanz(tofactinib) biologic agent presenting with cough productive of clear sputum. BNP 476, Acute diastolic CHF exacerbation (improving with diuresis) vs viral bronchitis. ECHO EF 50-55% stable. Brittle diabetic with large swings between 400s and 48. - Patient Problems (1) Acute diastolic HF (heart failure) Current Visit: No Status: Acute Priority: High Code(s): I50.31 - ACUTE DIASTOLIC (CONGESTIVE) HEART FAILURE SNOMED Code(s): 301026284 Comment: Continue torsemide 10mg daily (increased from home 5mg daily). daily weights, strict io EF stable 55% (2) Diabetes Current Visit: No Status: Chronic Priority: Medium Code(s): E11.9 - TYPE 2 DIABETES MELLITUS WITHOUT COMPLICATIONS SNOMED Code(s): 27780825 Comment: Very Labile, Lantus 7 BID with Lispro SS ordered. (3) Cough Current Visit: Yes Status: Acute Code(s): R05 - COUGH SNOMED Code(s): 38138499 Comment: CHF exaccerbation vs viral bronchitis vs medication side effect ( Xeljanz) RA agent patient recently started that was temporally correlated to symptoms) (4) Diarrhea Current Visit: Yes Status: Acute Code(s): R19.7 - DIARRHEA, UNSPECIFIED SNOMED Code(s): 86058323 Comment: likely 2/2 augmentin. add lomitil Status and Disposition: Medicine, inpatient. Possible d/c 11/12. Attending: Cooper Nevarez
[2016-11-11] MEDS: Cyanocobalamin TAB* 500 MCG PO SCH (21:39)
[2016-11-12] MEDS: Heparin VIAL(*) 5000 UNITS/ML VIAL (FIVE THOUSAND) SUBCUT SCH ×2 (05:43→16:13)
[2016-11-12] MEDS: Levothyroxine TAB* 25 MCG TAB PO SCH (05:45)
[2016-11-12] MEDS: Insulin LISPRO* 1 UNITS UNIT SUBCUT SCH ×2 (10:42→13:01)
[2016-11-12] MEDS: Omeprazole CAP* 20 MG PO SCH (10:48)
[2016-11-12] MEDS: Insulin GLARGINE(*) 1 UNITS UNIT SUBCUT SCH (10:48)
[2016-11-12] MEDS: Aspirin EC Low Dose* 81 MG TAB.EC PO SCH (10:49)
[2016-11-12] MEDS: Atorvastatin* 20 MG TAB PO SCH (10:51)
[2016-11-12] MEDS: Carvedilol TAB* 6.25 MG PO SCH (10:52)
[2016-11-12] MEDS: Benzonatate CAP* 100 MG PO SCH ×2 (10:52→16:37)
[2016-11-12] MEDS: Calcium Carbonate CHEW TAB* 500 MG (TUMS) PO SCH (10:52)
[2016-11-12] MEDS: Cyanocobalamin TAB* 500 MCG PO SCH (10:53)
[2016-11-12] MEDS: guaiFENesin ER TAB 600 MG PO SCH (10:54)
[2016-11-12] MEDS: Hydroxychloroquine TAB* 200 MG PO SCH (10:54)
[2016-11-12] MEDS: Ferrous Sulfate TAB* 325 MG PO SCH (10:54)
[2016-11-12] MEDS: Lisinopril TAB* 5 MG PO SCH (10:55)
[2016-11-12] MEDS: Torsemide TAB* 20 MG PO SCH (10:56)
[2016-11-12] MEDS: Diphenoxylat/Atrop 2.5-0.025M* 1 TAB PO PRN (10:58)
[2016-11-12 12:42] VITALS: BP 148/56
--- NOTE | 2016-11-13 09:44 | DS ---
DISCHARGE SUMMARY: DATE OF ADMISSION: 11/09/16 DATE OF DISCHARGE: 11/12/16 ADMITTING PROVIDER: Cruzito Mcocrmick MD ATTENDING PROVIDERS: Cruzito Mccormick MD and Cooper Nevarez MD PRIMARY CARE PHYSICIAN: Vanesa Alexandra. CHIEF COMPLAINT: Shortness of breath and coughing. PRINCIPAL DIAGNOSIS: Diastolic heart failure exacerbation. HISTORY OF PRESENT ILLNESS: The patient with past medical history of type 2 diabetes, chronic kidney disease, rheumatoid arthritis, gastric bypass surgery, CHF who presented with cough and shortness of breath x1 week. She had 3 weeks ago prior started on tofacitinib (Xeljanz) for rheumatoid arthritis but her costume shop coordinator, Dr. Shelley stopped it due to the cough and possible medication related/immunosuppression related respiratory infection. She was then given 3 days of Augmentin. She has a history of gastric bypass surgery and had lost a lot of weight but recently gained a significant amount of weight. Her medications included torsemide 5 mg daily for the past year but prior to that had been on 10 mg. BNP was elevated to 476 on the day of admission. CRP was 44. D-dimer 708. The patient had a transthoracic echocardiogram, which demonstrated preserved EF at 50% to 55% but abnormal left ventricular diastolic filling consistent with impaired relaxation. Bio prosthetic aortic valve appeared to be functioning normally, mild to moderate mitral regurgitation, mild mitral stenosis, moderate tricuspid regurgitation and then some mild-to- moderate pulmonary hypertension. No significant changes were seen compared to previous study of June 2015. The patient was diuresed with torsemide 10 mg daily. Weight upon admission was 63.5 kg on 11/09/16 and upon discharge was 58.7 kg. She was put on fluid restriction 1.5 L daily. Course was complicated by the patient's brittle insulin dependent diabetes mellitus with reported history of blood sugars at home in the 200s to even 500s range. She will only give herself insulin at night if blood sugar is in the 400 to 500 range, given her history of severe hypoglycemic episodes. The patient was managed initially with Lantus 7 in addition to low-dose sliding scale insulin. The patient did have elevated blood sugars to the 400s and point of care testing was above 444 on the evening of 11/10/16. The patient was given 8 units of Lantus at that time, covered with 5 units of Lispro, recheck at just past midnight was 361, so the patient was given additional 15 units of Lispro by covering Hospitalist. The patient became diaphoretic, sweaty and at 4 a.m. was noted to have a blood sugar of 48. She was given half ampule of dextrose. She eventually was able to eat breakfast in the morning and blood sugars slowly recovered to the low 80s. The patient was also noted to have diarrhea during admission and was prescribed Lomotil. She denied any abdominal pain, never had fevers. Blood sugars were stable on the Lantus subcutaneous b.i.d. with low dose sliding scale after events described previously. The patient was feeling well, worked well with physical therapy and was discharged home in a much improved condition. She will have to follow up with her senior network architect, Dr. Andrew Lowry for evaluation of her diastolic heart failure and medication reconciliation as an outpatient. She will be continued on fluid restriction 1.5 L and was advised to measure and record weights daily, with any increase more than 3 pounds in one day or 5 pounds in 1 week, to call Dr. Lowry in addition with any shortness of breath. DISCHARGE MEDICATIONS: Include: 1. Albuterol 2.5 mg inhaled q.i.d. p.r.n. 2. Calcium carbonate 100 mg p.o. b.i.d. 3. Aspirin 81 mg daily. 4. Carvedilol 12.5 mg p.o. b.i.d. 5. Vitamin B12 tablet 500 mcg p.o. b.i.d. 6. Ferrous sulfate 325 mg p.o. daily. 7. Plaquenil 400 mg p.o. daily. 8. Humulin insulin NPH and regular insulin 70/30, 10 units q.a.m. The patient sometimes takes up to 5 units q.p.m. but this is very rare given her history of hypoglycemia. 9. Synthroid 25 mcg p.o. daily. 10. Mucinex 600 mg p.o. daily. 11. Simvastatin 40 mg p.o. daily. 12. Protonix 40 mg p.o. daily. 13. Lisinopril 2.5 mg p.o. daily. 14. Nitroglycerin tab 0.4 mg sublingual q.5 minutes p.r.n. 15. Torsemide 10 mg p.o. daily (noted increase from 5 mg previously). 16. Lomotil tab one tab p.o. daily p.r.n. 17. Tessalon Perles 200 mg p.o. t.i.d. p.r.n. for cough. DISCHARGE DISPOSITION: Home. DISCHARGE DIET: Heart healthy, low salt. Fluid restriction 1.5 L. TIME SPENT: On discharge 35 minutes. [id number]/[facility] #: [id number] MTDD
== END 2016-11-12 19:00 | disposition home or self-care (01) | DRG 291 ==
LOC: ED 11:21 → MEDTELE 17:43 → OBSVTOIN 17:57
PROVIDERS: ADMIT Internal Medicine; ATTEND Internal Medicine
DX: I13.0 Hypertensive heart and chronic kidney disease with heart failure and stage 1 through stage 4 chronic kidney disease, or unspecified chronic kidney disease (principal); I50.33 Acute on chronic diastolic (congestive) heart failure; T68.XXXA Hypothermia, initial encounter; E11.22 Type 2 diabetes mellitus with diabetic chronic kidney disease; E11.649 Type 2 diabetes mellitus with hypoglycemia without coma; I27.2 Other secondary pulmonary hypertension; I08.1 Rheumatic disorders of both mitral and tricuspid valves; M06.9 Rheumatoid arthritis, unspecified; N18.9 Chronic kidney disease, unspecified; R19.7 Diarrhea, unspecified; E03.9 Hypothyroidism, unspecified; I25.10 Atherosclerotic heart disease of native coronary artery without angina pectoris; E78.00 Pure hypercholesterolemia, unspecified; J44.9 Chronic obstructive pulmonary disease, unspecified; M19.90 Unspecified osteoarthritis, unspecified site; E11.319 Type 2 diabetes mellitus with unspecified diabetic retinopathy without macular edema; M81.0 Age-related osteoporosis without current pathological fracture; F32.9 Major depressive disorder, single episode, unspecified; Z80.3 Family history of malignant neoplasm of breast; Z98.42 Cataract extraction status, left eye; Z98.41 Cataract extraction status, right eye; Z90.710 Acquired absence of both cervix and uterus; Z98.84 Bariatric surgery status; Z79.82 Long term (current) use of aspirin; Z79.4 Long term (current) use of insulin; Z88.5 Allergy status to narcotic agent; Z88.1 Allergy status to other antibiotic agents; Z88.2 Allergy status to sulfonamides; Z87.891 Personal history of nicotine dependence; Z95.810 Presence of automatic (implantable) cardiac defibrillator; Z95.2 Presence of prosthetic heart valve; Z87.01 Personal history of pneumonia (recurrent); Z87.440 Personal history of urinary (tract) infections; Z90.49 Acquired absence of other specified parts of digestive tract; Z82.49 Family history of ischemic heart disease and other diseases of the circulatory system; Z83.3 Family history of diabetes mellitus
CPT/HCPCS: 36415; 71020; 80053; 82947; 83605; 83880; 84484; 85025; 85379; 86140; 87040; 93005; 93306; A9270-GY; J1644; J1940; J2930

== ENCOUNTER 2017-02-22 03:29 | Inpatient (IN) | payer MEDICARE, MEDICAID ==
[2017-02-22] MEDS ORDERED: NS 0.9% 1000 ML* 1,000 ML IV ONE (04:38)
[2017-02-22 04:56] LABS: ABS Basophils 0 10^3/ul (0-0.2); ABS Eosinophils 0.1 10^3/ul (0-0.6); ABS Lymphocytes 0.3 10^3/ul (1.0-4.8); ABS Monocytes 0 10^3/ul (0-0.8); ABS Neutrophils 4.4 10^3/ul (1.5-7.7); ABS Nucleated RBC 0 10^3/ul; Eosinophil % 1.6 % (0-6); Hematocrit 35 % (35-47); Hemoglobin 11.6 g/dl (12.0-16.0); Lymphocyte % 6.2 % (25-47); Mean Corpuscular HGB Conc 33 g/dl (31-36); Mean Corpuscular Hemoglobin 31 pg (27-31); Mean Corpuscular Volume 93 fL (80-97); Mean Platelet Volume 10 um3 (7.4-10.4); Nucleated Red Blood Cells % 0; Platelet Count 165 10^3/ul (150-450); Red Blood Count 3.79 10^6/ul (4.0-5.4); Red Cell Distribution Width 15 % (10.5-15); White Blood Count 4.8 10^3/ul (3.5-10.8)
[2017-02-22 05:06] LABS: EGFR Non-African American 28.9 (>60)
[2017-02-22 05:09] LABS: INR 0.89 (0.77-1.02)
[2017-02-22 06:19] LABS: Urine Appearance Cloudy; Urine Blood 1+ (Negative); Urine Color Yellow; Urine Ketones Negative (Negative); Urine Protein 1+(30 mg/dL) (Negative); Urine Specific Gravity 1.011 (1.010-1.030); Urine Urobilinogen Negative (Negative)
[2017-02-22] MEDS ORDERED: cefTRIAXone(*) 1 GM in NS 0.9% 50 ML* 50 ML IVPB ONE (06:23)
[2017-02-22] MEDS ORDERED: Acetaminophen TAB* 325 MG PO PRN (07:07)
[2017-02-22] MEDS ORDERED: Ondansetron INJ* 2 MG/ML VIAL IV PRN (07:07)
[2017-02-22] MEDS ORDERED: Dextrose 50% Syringe 50 ML* 25 GM/50 ML SYRINGE IV PUSH PRN (09:14)
[2017-02-22] MEDS ORDERED: NS 0.9% 1000 ML* 1,000 ML IV SCH (09:15)
--- NOTE | 2017-02-22 09:45 | RAD ---
Indication: Atraumatic chest pain. History of cardiac and pulmonary disease. Comparison: November 09, 2016 chest radiograph and September 23, 2016 CT. Technique: Sitting AP chest 0619 hours Report: Elevated lung volumes and both diffuse mild prominence of the interstitial markings and patchy rarefaction of the mid to upper lung zone interstitial markings. No focal pulmonary lesion, compelling alveolar consolidation, pleural effusion, pneumothorax. Aortic valve prosthesis, RIGHT atrial and RIGHT ventricular level pacemaker leads. Negative for cardiomegaly. Unremarkable central pulmonary vasculature and mediastinal contours. Negative for free air beneath the diaphragm. IMPRESSION: 1. Stigmata of chronic obstructive pulmonary disease and emphysema without evidence for an acute ulnar process. 2. Prosthetic aortic valve endograft and dual-chamber cardiac pacemaker in place without change in radiographic appearance compared with the prior exam. No evidence for pulmonary edema.
--- NOTE | 2017-02-22 09:48 | RAD ---
Indication: RIGHT hip pain worse yesterday. History of rheumatoid arthritis and osteoporosis. Comparison: September 19, 2008 Technique: AP pelvis and AP and frog-leg lateral views RIGHT hip. Report: Bone density appears decreased throughout. No fracture of the RIGHT proximal femur or pelvis evident. Normal articular alignment. 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 Lumbar sacral spine degenerative spondylosis and facet joint osteoarthritis. Diffuse peripheral vascular calcifications. Unremarkable soft tissue contours. IMPRESSION: 1. No radiographic evidence for RIGHT hip or pelvic fracture. 2. Stigmata of mild bilateral rheumatoid arthritis of the hips corresponding with clinical history.
--- NOTE | 2017-02-22 13:42 | HP ---
CC: Vanesa Alexnadra NP * HOSPITAL MEDICINE HISTORY AND PHYSICAL: DATE OF ADMISSION: 02/22/17 PRIMARY CARE PROVIDER: Vanesa Alexandra NP ATTENDING PHYSICIAN: Lea Magana DO * (dictation provided by Teena Leal NP ). CHIEF COMPLAINT: Generally feeling unwell. HISTORY OF PRESENT ILLNESS: Ms. Carter is a 77-year-old female with a past medical history of transcatheter aortic valve implantation in 2005, anemia of chronic disease, GI bleed, type 2 diabetes, AFib not on anticoagulation, pacemaker, hypertension, rheumatoid arthritis, COPD, who presents today to the hospital with concern for generally feeling unwell. Ms. Carter states that she began to feel unwell yesterday. Despite detailed review of systems, the patient is not really able to offer any specific complaints other than to say that she felt unwell and that she had some chest discomfort. She describes what seems to be a malaise with arthralgias, myalgias, although it is hard for her to differentiate that from her general rheumatoid arthritis. On review of systems, she did report positive complaint of chest discomfort that was intermittent and described as a muscle spasm. This pain came on at rest, is not alleviated or exacerbated by anything. She states she still feels a little bit of discomfort at the time of my examination. It is on the left side of her chest. It is not associated with shortness of breath, diaphoresis, nausea, or vomiting. The patient did not present to the hospital because of this fleeting chest discomfort, but rather presented because she just knew she did not feel right in general. In the emergency room, Ms. Carter had labs which showed a urinary tract infection with 3+ leuk esterase and 3+ bacteria. Her WBC is normal. ESR is 80. CRP is 69.54. She also shows low sodium at 131 with high potassium at 6.0. She has an acute kidney injury with BUN 80 and creatinine 1.71. Chest x- ray shows no acute process. The patient had initially complained of some right hip pain, but then tells me today that she just had bilateral hip pain while lying in bed and could not get comfortable and there is no radiographic evidence on the right hip to view for any pelvic fracture. PAST MEDICAL HISTORY: 1. Transcatheter aortic valve implantation in March 2005 at [facility]. 2. Anemia of chronic disease. 3. History of severe peptic ulcer disease with grade D erosive esophagitis and jejunitis. 4. Insulin-dependent type 2 diabetes. 5. Chronic AFib, not on anticoagulation due to GI bleed. 6. Status post pacemaker placement. 7. Hypertension. 8. Dyslipidemia. 9. History of Florentin-en-Y gastric bypass. 10. Diabetic retinopathy. 11. Coronary artery disease. 12. COPD, not requiring oxygen. 13. Osteoporosis. 14. Rheumatoid arthritis. 15. Polyclonal hypergammaglobulinemia. 16. Roy's cyst in the left knee. 17. Chronic bilateral leg edema. 18. Chronic bilateral lung infiltrates. 19. Chronic kidney disease. MEDICATIONS: I called the patient's pharmacy and stated that they will be sending over a medication list. I have also called the patient's home and I am not able to reach anyone. I am not able to reach the patient's son, Eliud. Medication list will be updated when available. In the past, the patient had been on: 1. Torsemide. 2. Simvastatin. 3. Pantoprazole. 4. Nitroglycerin. 5. Lisinopril. 6. Levothyroxine. 7. NPH insulin 70/30. 8. Plaquenil. 9. Ferrous sulfate. 10. Lomotil. 11. Cyanocobalamin. 12. Carvedilol. 13. Antacid. 14. Calcium with vitamin D. 15. Benzonatate. 16. Aspirin. 17. Albuterol. The patient is not able to verify the list with me today. ALLERGIES: CODEINE, LEVOFLOXACIN, and SULFA ANTIBIOTICS. FAMILY HISTORY: Mother had heart disease, in the 80s. Dad was almost 80 when he of a heart attack. SOCIAL HISTORY: The patient was smoking about 40 years ago. She denies alcohol or drug use. She lives with her son, Eliud; he is the healthcare proxy. REVIEW OF SYSTEMS: A 14-point review of systems was completed with Ms. Carter and all those not mentioned above were negative. PHYSICAL EXAMINATION GENERAL: Ms. Carter is lying in the bed. She is in no acute distress. VITAL SIGNS: Temperature 97.9, pulse rate 64, respiratory rate 14, O2 saturation 95% on room air, blood pressure 141/81, but has dipped as low as 98/ 43 while in the emergency room. LUNGS: Clear to auscultation bilaterally with no accessory muscle use and good aeration. HEART: S1 and S2. No murmur, rub, or gallop and regular. ABDOMEN: Soft, nontender with bowel sounds positive x4. EXTREMITIES: No cyanosis. No edema. HIPS: No pain with palpation. LOW BACK: No pain with palpation. NEUROLOGIC: She is alert. She is oriented x3. She moves all extremities equally. There is no facial asymmetry or focal weakness. Extraocular movements are intact. SKIN: Intact. DIAGNOSTIC STUDIES/LAB DATA: WBC 4.8, hemoglobin 11.6, hematocrit 35, and platelets of 165. ESR 80. INR 0.89. Blood gas shows pH 7.23, pCO2 of 34, pO2 of 30, bicarbonate 14.8; this is a venous blood gas. Sodium 131, potassium 6.0 , chloride 108, serum bicarbonate 14, BUN 80, creatinine 1.71, glucose 200. Lactic acid 1.0. CRP 69.54. Urine shows 3+ leuk esterase and 3+ bacteria. Flu swab is negative. Chest x-ray is read as follows: "Stigmata of chronic obstructive pulmonary disease and emphysema without evidence for an acute cardiac process, prosthetic aortic valve, endograft and dual chamber cardiac pacemaker in place without change in radiographic appearance compared by the prior exam, no evidence for pulmonary edema." Hip and pelvis x-rays read as follows: "No radiographic evidence for right hip or pelvic fracture, stigmata of mild bilateral rheumatoid arthritis of the hip, corresponding clinical history." ASSESSMENT: Ms. Carter is a 77-year-old female with a very complicated past medical history including chronic obstructive pulmonary disease, rheumatoid arthritis, transaortic valve replacement, atrial fibrillation, diabetes which is insulin dependent, who presents today to the hospital with concern for generally feeling unwell with positive review of systems for chest pain. The patient is going to be on observation for the followin. Urinary tract infection: I think this likely explains the patient's symptoms of just generally feeling unwell without any specific symptoms. Plan to treat with ceftriaxone, awaiting urinary cultures. In the past, she has had Klebsiella pneumoniae which was sensitive to ceftriaxone. We will await urine cultures. The patient does not meet sepsis criteria at this time. Her lactic acid is normal. Blood cultures are received. 2. Chest pain: The patient reports some fleeting chest discomfort, but not as her primary complaint. I do not think that this is cardiac in origin, but we will monitor on telemetry and trend troponins. 3. Hyperkalemia: I suspect this is secondary to acute kidney injury. Plan to provide IV fluids and recheck her basic metabolic panel at 1300 hour today. 4. Hyponatremia, again secondary to dehydration. Plan to provide IV fluids and recheck labs at 1300 hours. 5. Type 2 diabetes: I am waiting for complete medication list from the patient 's pharmacy and/or her family. She does take long-acting NPH 70/30 twice a day but at a relatively low dose. Plan to order 5 of Lantus b.i.d. for now until that can be clarified. She will also have blood glucoses q.a.c. with lispro sliding scale. 6. History of atrial fibrillation: The patient is not anticoagulated at home, not on any rate control agents at least per this most recent list from October. 7. Chronic anemia, at baseline. 8. Chronic kidney disease. The patient's creatinine is slightly elevated with acute kidney injury today. We will replete with fluids and recheck. The patient confirms being on diuretic at home, although I am not sure what type. I would recommend not continuing that at this time nor any other nephrotoxins. 9. Code status is full code. This was reviewed with the patient today. 10. Disposition to medical floor with telemetry monitoring. TIME SPENT: Approximately 60 minutes was spent on the admission of this patient , more than half that time was spent with the patient at the bedside reviewing the events leading up to this hospitalization, performing the physical examination, and reviewing my plan of care. TEENA LEAL NP [id number]/[facility] #: [id number] CESAR
[2017-02-22 14:05] LABS: EGFR Non-African American 32.1 (>60)
[2017-02-22] MEDS ORDERED: Sodium Polystyrene ORAL.SOL* 15 GM/60 ML BTL PO ONE (14:18)
[2017-02-22] MEDS ORDERED: Insulin LISPRO* 1 UNITS UNIT SUBCUT ONE (14:18)
[2017-02-22] MEDS: Insulin LISPRO* 1 UNITS UNIT SUBCUT SCH ×2 (14:30→18:05)
[2017-02-22] MEDS: Heparin VIAL(*) 5000 UNITS/ML VIAL (FIVE THOUSAND) SUBCUT SCH ×2 (14:49→21:37)
[2017-02-22] MEDS: Insulin GLARGINE(*) 1 UNITS UNIT SUBCUT SCH (21:37)
[2017-02-22] MEDS: NS 0.9% 1000 ML* 1,000 ML IV SCH (21:37)
[2017-02-23] MEDS: Heparin VIAL(*) 5000 UNITS/ML VIAL (FIVE THOUSAND) SUBCUT SCH ×3 (05:43→21:02)
[2017-02-23 06:31] LABS: ABS Basophils 0.1 10^3/ul (0-0.2); ABS Eosinophils 0.3 10^3/ul (0-0.6); ABS Lymphocytes 0.7 10^3/ul (1.0-4.8); ABS Monocytes 0.4 10^3/ul (0-0.8); ABS Neutrophils 4.4 10^3/ul (1.5-7.7); ABS Nucleated RBC 0 10^3/ul; Eosinophil % 4.3 % (0-6); Hematocrit 26 % (35-47); Hemoglobin 8.4 g/dl (12.0-16.0); Lymphocyte % 12.4 % (25-47); Mean Corpuscular HGB Conc 33 g/dl (31-36); Mean Corpuscular Hemoglobin 31 pg (27-31); Mean Corpuscular Volume 93 fL (80-97); Mean Platelet Volume 9 um3 (7.4-10.4); Nucleated Red Blood Cells % 0; Platelet Count 123 10^3/ul (150-450); Red Blood Count 2.73 10^6/ul (4.0-5.4); Red Cell Distribution Width 15 % (10.5-15); White Blood Count 5.9 10^3/ul (3.5-10.8)
[2017-02-23 06:47] LABS: EGFR Non-African American 40.3 (>60)
[2017-02-23] MEDS: NS 0.9% 1000 ML* 1,000 ML IV SCH (07:53)
[2017-02-23] MEDS: cefTRIAXone(*) 1 GM in NS 0.9% 50 ML* 50 ML IVPB SCH (07:53)
[2017-02-23] MEDS: Insulin LISPRO* 1 UNITS UNIT SUBCUT SCH ×3 (08:06→17:19)
[2017-02-23] MEDS: Insulin GLARGINE(*) 1 UNITS UNIT SUBCUT SCH ×2 (08:06→21:09)
[2017-02-23] MEDS ORDERED: Albuterol 2.5 MG/3 ML NEB.SOL* (0.083%) INH PRN (13:44)
[2017-02-23] MEDS ORDERED: Nitroglycerin TAB 0.4 MG* 0.4 MG TAB SL PRN (13:44)
--- NOTE | 2017-02-23 15:31 | PN ---
Subjective Date of Service: 02/23/17 Interval History: Patient feeling better today, is A/Ox3. Complains of continued poor appetite. Denies F/C, N/V, abdominal pain, Dysuria, chest pain, constipation, diarrhea, or other pain. Patient complains of back pain, but in her low back and similar to outpatient. Patient unable to say what medications she is on but her son was able to send over a copy for reconciliation. Family History: Unchanged from Admission Social History: Unchanged from Admission Past Medical History: Unchanged from Admission Objective Active Medications: Acetaminophen (Tylenol Tab*) 650 mg PO Q4H PRN PRN Reason: PAIN Albuterol (Ventolin 2.5 Mg/3 Ml Neb.Rivka*) 2.5 mg INH QID PRN PRN Reason: SOB/WHEEZING Aspirin (Aspirin Ec Low Dose*) 81 mg PO DAILY [facility] Atorvastatin Calcium (Lipitor*) 20 mg PO DAILY [facility] Carvedilol (Coreg Tab*) 12.5 mg PO BID [facility] Cyanocobalamin (Vitamin B12 Tab*) 500 mcg PO BID [facility] Dextrose (D50w Syringe 50 Ml*) 12.5 gm IV PUSH .FOR FS < 60 - SS PRN PRN Reason: FS < 60 Ferrous Sulfate (Ferrous Sulfate Tab*) 325 mg PO DAILY [facility] Guaifenesin (Mucinex*) 600 mg PO DAILY [facility] Heparin Sodium (Porcine) (Heparin Vial(*)) 5,000 units SUBCUT Q8HR [facility] Last Admin: 02/23/17 13:38 Dose: 5,000 units Hydroxychloroquine Sulfate (Plaquenil Tab*) 400 mg PO DAILY [facility] Ceftriaxone Sodium 1 gm/ (Sodium Chloride) 50 mls @ 200 mls/hr IVPB Q24H [facility] Last Admin: 02/23/17 07:53 Dose: 200 mls/hr Insulin Glargine (Lantus(*)) 5 units SUBCUT Q12H [facility] Last Admin: 02/23/17 08:06 Dose: 5 units Insulin Human Lispro (Humalog*) 0 units SUBCUT AC [facility] PRN Reason: Protocol Last Admin: 02/23/17 12:07 Dose: 2 unit Levothyroxine Sodium (Synthroid Tab*) 25 mcg PO DAILY [facility] Lisinopril (Prinivil Tab*) 2.5 mg PO DAILY [facility] Nitroglycerin (Nitroglycerin Tab 0.4 Mg*) 0.4 mg SL Q5M PRN PRN Reason: ANGINA Omeprazole (Prilosec Cap*) 20 mg PO DAILY [facility] Ondansetron HCl (Zofran Inj*) 4 mg IV Q6H PRN PRN Reason: NAUSEA Vital Signs - 8 hr 02/23/17 13:05 Temperature 98.0 F Pulse Rate 72 Respiratory 16 Rate Blood Pressure 126/74 (mmHg) Oxygen Devices in Use Now: None Appearance: Patient is a 77yo female who appears stated age and is sitting in the bed in [facility]. Eyes: No Scleral Icterus, PERRLA Ears/Nose/Mouth/Throat: NL Teeth, Lips, Gums, Clear Oropharnyx, Mucous Membranes Moist Neck: NL Appearance and Movements; NL JVP, Trachea Midline Respiratory: Symmetrical Chest Expansion and Respiratory Effort, Clear to Auscultation Cardiovascular: NL Sounds; No Murmurs; No JVD, RRR, No Edema Abdominal: NL Sounds; No Tenderness; No Distention, No Hepatosplenomegaly, - - No Suprapubic or CVA tenderness. Lymphatic: No Cervical Adenopathy Extremities: No Edema, No Clubbing, Cyanosis Skin: No Rash or Ulcers, No Nodules or Sclerosis Neurological: Alert and Oriented x 3, NL Sensation, NL Muscle Strength and Tone , - - CN II-XII intact Result Diagrams: 02/23/17 06:15 02/23/17 06:15 Assess/Plan/Problems-Billing Assessment: Patient is a 77yo male with a PMH significant for RA, TAVR, Anemia, GI Bleed, DMII and HTN who presents with general malaise secondary to UTI. Patient was found to be significant acidotic and hyperkalemic as well, likely due to CHARLA. - Patient Problems (1) Urinary tract infection Current Visit: No Status: Acute Comment: Urine Culture positive for E. Coli. No Sepsis or lactic acidosis. Continue Ceftriaxone. (2) Hyperkalemia Current Visit: Yes Status: Acute Code(s): E87.5 - HYPERKALEMIA SNOMED Code (s): 12888924 Comment: K+ up to 6.0. No EKG changes. Given Kayexelate. Now resolved. Likely due to CHARLA. Will monitor. (3) Acidosis Current Visit: Yes Status: Acute Code(s): E87.2 - ACIDOSIS SNOMED Code(s) : 92574667 Comment: Acidotic. Bicarb 13 on admission. Improved to 15 today. No Gap. VBG shows pH of 7.23. Will continue to monitor. Likely due to CHARLA. No signs of obtundation or other symptoms. (4) Rheumatoid arthritis Current Visit: No Status: Chronic Priority: Low Code(s): M06.9 - RHEUMATOID ARTHRITIS, UNSPECIFIED SNOMED Code(s): 65161369 Comment: Continue hydoxychloroquine. Fup Dr. Shelley. (5) Anemia Current Visit: No Status: Acute Priority: High Onset Date: 06/28/14 Code (s): D64.9 - ANEMIA, UNSPECIFIED SNOMED Code(s): 489875325 Comment: No signs of GI Bleed. Gets Epo infusions outpatient. Hemoccult ordered. Will monitor. Hold anticoagulation for Afib. (6) Aortic stenosis Current Visit: No Status: Chronic Priority: Low Code(s): I35.0 - NONRHEUMATIC AORTIC (VALVE) STENOSIS SNOMED Code(s): 11012333 Comment: s/p recent LISY procedure. (7) CAD (coronary artery disease) Current Visit: No Status: Chronic Code(s): I25.10 - ATHSCL HEART DISEASE OF [place] CORONARY ARTERY W/O ANG PCTRS SNOMED Code(s): 53577363 Comment: Stable. Continue ASA (8) GERD (gastroesophageal reflux disease) Current Visit: No Status: Chronic Code(s): K21.9 - GASTRO-ESOPHAGEAL REFLUX DISEASE WITHOUT ESOPHAGITIS SNOMED Code(s): 219730664 Comment: Hx GI Bleed from esophagitis. Will check hemoccult and monitor. Continue Omeprazole in hospital. (9) HLD (hyperlipidemia) Current Visit: No Status: Chronic Code(s): E78.5 - HYPERLIPIDEMIA, UNSPECIFIED SNOMED Code(s): 29474205 Comment: Continue Lipitor (10) HTN (hypertension) Current Visit: No Status: Chronic Code(s): I10 - ESSENTIAL (PRIMARY) HYPERTENSION SNOMED Code(s): 14867281 Comment: Normotensive continue coreg. Hold toersemide and amlodipine. (11) Hypothyroid Current Visit: No Status: Chronic Code(s): E03.9 - HYPOTHYROIDISM, UNSPECIFIED SNOMED Code(s): 25998604 Comment: continue synthroid (12) DVT prophylaxis Current Visit: No Status: Acute Code(s): JAR6475 - SNOMED Code(s): 962420131 Comment: Heparin SubQ (13) Full code status Current Visit: No Status: Chronic Code(s): Z78.9 - OTHER SPECIFIED HEALTH STATUS SNOMED Code(s): 125870864 Status and Disposition: Patient is admitted inpatient for UTI, CHARLA and Acidosis. Hopeful discharge tomorrow.
[2017-02-23] MEDS ORDERED: Hydroxychloroquine TAB* 200 MG PO SCH (21:00)
[2017-02-23] MEDS: Carvedilol TAB* 6.25 MG PO SCH (21:08)
[2017-02-23] MEDS: Cyanocobalamin TAB* 500 MCG PO SCH (21:09)
[2017-02-24] MEDS: Heparin VIAL(*) 5000 UNITS/ML VIAL (FIVE THOUSAND) SUBCUT SCH ×2 (05:33→12:57)
[2017-02-24 08:25] LABS: ABS Basophils 0 10^3/ul (0-0.2); ABS Eosinophils 0.2 10^3/ul (0-0.6); ABS Lymphocytes 0.9 10^3/ul (1.0-4.8); ABS Monocytes 0.5 10^3/ul (0-0.8); ABS Neutrophils 3.1 10^3/ul (1.5-7.7); ABS Nucleated RBC 0 10^3/ul; Eosinophil % 4.7 % (0-6); Hematocrit 27 % (35-47); Hemoglobin 8.9 g/dl (12.0-16.0); Lymphocyte % 19.1 % (25-47); Mean Corpuscular HGB Conc 33 g/dl (31-36); Mean Corpuscular Hemoglobin 31 pg (27-31); Mean Corpuscular Volume 93 fL (80-97); Mean Platelet Volume 9 um3 (7.4-10.4); Nucleated Red Blood Cells % 0.1; Platelet Count 139 10^3/ul (150-450); Red Blood Count 2.89 10^6/ul (4.0-5.4); Red Cell Distribution Width 15 % (10.5-15); White Blood Count 4.7 10^3/ul (3.5-10.8)
[2017-02-24] MEDS: Omeprazole CAP* 20 MG PO SCH ×2 (08:29→09:44)
[2017-02-24] MEDS: cefTRIAXone(*) 1 GM in NS 0.9% 50 ML* 50 ML IVPB SCH (08:31)
[2017-02-24] MEDS: Insulin LISPRO* 1 UNITS UNIT SUBCUT SCH ×2 (08:41→12:56)
[2017-02-24] MEDS ORDERED: amLODIPine TAB* 5 MG PO SCH (09:00)
[2017-02-24] MEDS ORDERED: Atorvastatin* 20 MG TAB PO SCH (09:00)
[2017-02-24] MEDS ORDERED: guaiFENesin ER TAB 600 MG PO SCH (09:00)
[2017-02-24] MEDS ORDERED: Hydroxychloroquine TAB* 200 MG PO SCH (09:00)
[2017-02-24] MEDS ORDERED: Aspirin EC Low Dose* 81 MG TAB.EC PO SCH (09:00)
[2017-02-24] MEDS ORDERED: Ferrous Sulfate TAB* 325 MG PO SCH (09:00)
[2017-02-24] MEDS ORDERED: Lisinopril TAB* 5 MG PO SCH (09:00)
[2017-02-24] MEDS ORDERED: Levothyroxine TAB* 25 MCG TAB PO SCH (09:00)
[2017-02-24] MEDS: Insulin GLARGINE(*) 1 UNITS UNIT SUBCUT SCH (09:25)
[2017-02-24] MEDS: Cyanocobalamin TAB* 500 MCG PO SCH (09:30)
[2017-02-24] MEDS: Carvedilol TAB* 6.25 MG PO SCH (09:30)
[2017-02-24 09:40] VITALS: BP 116/58
[2017-02-24 11:40] LABS: EGFR Non-African American 55.5 (>60)
[2017-02-24] MEDS ORDERED: Magnesium Sulfate 2 GM IV* 2 GM/50 ML BAG IVPB ONE (11:53)
--- NOTE | 2017-02-25 11:03 | ED ---
Sherri Brown Gabriel, scribed for Guy Figueroa MD on 02/22/17 at 0438 . Complex/Multi-Sys Presentation - HPI Summary HPI Summary: This patient is a 77 year old F BIBA to [facility] accompanied by her family with a chief complaint of inability to get warm since 0030. The patient rates the pain 10/10 in severity. Patient reports cough, chills, diarrhea, lower back and bilateral hip pain. Patient denies dysuria, hematuria, and trauma. Patient has a history or RA and has had her flu shot this year. - History Of Current Complaint Chief Complaint: EDGeneral Time Seen by Provider: 02/22/17 04:29 Hx Obtained From: Patient, Family/Stitcher Tape Controlled Machine Onset/Duration: Lasting Hours, Still Present Timing: Constant Severity Currently: Mild Severity Initially: Mild Associated Signs And Symptoms: Positive: Other - chills, fever, cough, chills, diarrhea, lower back and bilateral hip pain - Allergies/Home Medications Allergies/Adverse Reactions: Allergies Allergy/AdvReac Type Severity Reaction Status Date / Time Codeine Allergy Intermediate Rash Verified 01/21/16 16:56 Levofloxacin [From Levaquin] Allergy Intermediate Agitation Verified 01/21/16 16 :56 Sulfa Antibiotics Allergy Intermediate Rash And Verified 01/21/16 16:56 Itching PMH/Surg Hx/FS Hx/Imm Hx Endocrine/Hematology History: Reports: Hx Anticoagulant Therapy, Hx Blood Transfusions, Hx Diabetes, Hx Thyroid Disease, Hx Anemia, 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 Denies: Hx Systemic Lupus Erythematosus Cardiovascular History: Reports: Hx Angina, Hx Auto Implanted Cardiovert Defib, Hx Congestive Heart Failure, Hx Coronary Artery Disease, Hx Deep Vein Thrombosis - Man-made clot caused by nurse 40+ years ago, Hx Hypercholesterolemia, Hx Hypertension, Hx Pacemaker/ICD, Hx Valvular Heart Disease, Other Cardiovascular Problems/Disorders - Aortic valve replacement, bradycardia, cardiac catherization Denies: Hx Myocardial Infarction, Hx Rheumatic Fever, Hx Syncope Respiratory History: Reports: Hx Asthma, Hx Chronic Obstructive Pulmonary Disease (COPD), Hx Pneumonia Denies: Hx Lung Cancer, Hx Sleep Apnea GI History: Reports: Hx Ulcer - Peptic ulcer disease, Other GI Disorders - gastric bypass Denies: Hx Gastroesophageal Reflux Disease History: Reports: Other Problems/Disorders - UTIs, CKD Denies: Hx Kidney Stones, Hx Renal Disease Musculoskeletal History: Reports: Hx Arthritis, Hx Rheumatoid Arthritis, Hx Back Problems, Hx Osteoporosis Denies: Hx Gout, Hx Orthopedic Injury Sensory History: Reports: Hx Cataracts, Hx Contacts or Glasses, Other Sensory Impairments - Retinoplasty Denies: Hx Hearing Aid, Hx Hearing Problem Opthamlomology History: Reports: Hx Cataracts, Hx Contacts or Glasses, Other Sensory Impairments - Retinoplasty Neurological History: Denies: Hx Dementia, Hx Developmental Delay, Hx Headaches, Hx Migraine, Hx Nerve Disease, Hx Seizures, Hx Spinal Cord Injury, Hx Transient Ischemic Attacks (TIA), Other Neuro Impairments/Disorders Psychiatric History: Reports: Hx Depression - Cancer History Cancer Type, Location and Year: Two sisters had breast cancer - Surgical History Surgery Procedure, Year, and Place: Hysterectomy. Appendectomy. Tonsillectomy. Bilateral Knee Arthroscopy. Diabetic Retinopathy-eye surgery. Bilateral Cataract removal. Sinus Surgery. Florentin-en-y gastric bypass, 2007. Cholecystecomy 2009. Carpal Tunnel Surgery. Aortic Valve replacement, 2016, [facility] Anesthesia Reactions: No - Immunization History Date of Tetanus Vaccine: utd Date of Influenza Vaccine: utd Infectious Disease History: No Infectious Disease History: Reports: Hx Clostridium Difficile Denies: Hx Hepatitis, Hx Human Immunodeficiency Virus (HIV), Hx of Known/ Suspected MRSA, Hx Shingles, Hx Tuberculosis, Hx Known/Suspected VRE, Hx Known/ Suspected VRSA, History Other Infectious Disease, Traveled Outside the in Last 30 Days - Family History Known Family History: Positive: None, Cardiac Disease, Diabetes, Other - Breast Cancer - Social History Alcohol Use: Rare Substance Use Type: Reports: None Hx Tobacco Use: Yes - quit > 20 yrs ago Smoking Status (MU): Former Smoker Type: Cigarettes Have You Smoked in the Last Year: No Review of Systems Positive: Chills. Negative: Fever Negative: Erythema Negative: Sore Throat Negative: Chest Pain Positive: Cough. Negative: Shortness Of Breath Negative: Abdominal Pain, Vomiting, Nausea Negative: dysuria, hematuria Positive: Other - lower back and hip pain . Negative: Edema Negative: Rash Neurological: Negative - dizziness All Other Systems Reviewed And Are Negative: Yes Physical Exam - Summary Physical Exam Summary: Constitutional: Well-developed, Well-nourished, Alert. (-) Distressed Skin: Warm, Dry HENT: Normocephalic; Atraumatic Eyes: Conjunctiva normal Neck: Musculoskeletal ROM normal neck. (-) JVD, (-) Stridor, (-) Tracheal deviation Cardio: Rhythm regular, rate normal, Heart sounds normal; Intact distal pulses; The pedal pulses are 2+ and symmetric. Radial pulses are 2+ and symmetric. (-) Murmur Pulmonary/Chest wall: Effort normal. (-) Respiratory distress, (-) Wheezes, (-) Rales Abd: Soft, (-) Tenderness, (-) Distension, (-) Guarding, (-) Rebound Musculoskeletal: (-) Edema Tenderness over the right hip. Lymph: (-) Cervical adenopathy Neuro: Alert, Oriented x3 Psych: Mood and affect Normal Triage Information Reviewed: Yes Vital Signs On Initial Exam: Initial Vitals Temp Pulse Resp BP Pulse Ox 97.5 F 100 20 132/100 100 02/22/17 03:37 02/22/17 03:37 02/22/17 03:37 02/22/17 03:37 02/22/17 03:37 Vital Signs Reviewed: Yes Diagnostics - Vital Signs Vital Signs Temp Pulse Resp BP Pulse Ox 02/22/17 03:37 97.5 F 100 20 132/100 100 - Laboratory Result Diagrams: 02/22/17 04:16 02/22/17 04:16 Lab Statement: Any lab studies that have been ordered have been reviewed, and results considered in the medical decision making process. - Radiology CXR Radiology Interpretation Completed By: ED Physician - no acute disease. Hip Xray Radiology Interpretation Completed By: ED Physician - no acute disease. Complex Multi-Symp Course/Dx Assessment/Plan: This patient is a 77 year old F BIBA to [facility] accompanied by her family with a chief complaint of inability to get warm since 0030. The patient rates the pain 10/10 in severity. Patient reports cough, chills, diarrhea, lower back and bilateral hip pain. Patient denies dysuria, hematuria, and trauma. Patient has a history or RA and has had her flu shot this year. . CXR reveals no acute disease. Hip Xray reveals no acute disease. Test results with no significant abnormalities except for carbon dioxide of 14 and a CRP of 70. In the ED course the patient was given IV fluids. We discussed patient care with Dr. Magana and accepted the patient for admittance. Patient will be admitted. The patient is agreeable with this plan. - Diagnoses Provider Diagnoses: UTI (urinary tract infection), Sepsis, Metabolic acidosis, Right hip pain - Physician Notifications Discussed Care Of Patient With: Lea Magana Time Discussed With Above Provider: 06:54 Instructed by Provider To: Other - We discussed patient care with Dr. Magana and accepted the patient for admittance. Discharge - Discharge Plan Condition: Fair Disposition: ADMITTED TO [facility] Referrals: Vanesa Alexandra, GAM[employer] FLOOR SUPERVISOR [Primary Care Provider] - The documentation as recorded by the Sherri jc Gabriel accurately reflects the service I personally performed and the decisions made by , Guy Figueroa MD.
--- NOTE | 2017-02-25 15:04 | DS ---
CC: Vanesa Alexandra NP * DISCHARGE SUMMARY: DATE OF ADMISSION: 02/22/17. DATE OF DISCHARGE: 02/24/17. PRIMARY CARE PROVIDER: Vanesa Alexandra NP MY ATTENDING WHILE IN THE HOSPITAL: Dr. Cooper Nevarez * (DICTATED BY JYOTI ARTHUR) PRIMARY DISCHARGE DIAGNOSES: 1. Urinary tract infection. 2. Anemia. 3. Acute kidney injury. SECONDARY DISCHARGE DIAGNOSES: 1. History of previous gastrointestinal bleeds. 2. TAVR, March 2005. 3. Peptic ulcer disease and grade D erosive esophagitis. 4. Atrial fibrillation, not on anticoagulation. 5. Insulin-dependent diabetes mellitus type 2. 6. Pacemaker. 7. Florentin-en-Y gastric bypass. 8. Hypertension. 9. Dyslipidemia. 10. Dilated cardiomyopathy. 11. Coronary artery disease. 12. Chronic obstructive pulmonary disease. 13. Osteoporosis. 14. Rheumatoid arthritis. 15. Polyclonal hypergammaglobulinemia. STUDIES DONE WHILE IN THE HOSPITAL: Chest x-ray from 02/22/17 read as stigmata of chronic obstructive pulmonary disease, emphysema without evidence of acute process, prosthetic aortic valve endograft and dual chamber cardiac pacemaker in place without change in radiographic appearance compared with the prior exam , no evidence for pulmonary edema. Hip and pelvis x-ray from 02/22/17 read as no radiographic evidence for right hip or pelvic fracture, stigmata of mild bilateral rheumatoid arthritis of the hips corresponding with clinical history. Electrocardiogram from 02/22/17 shows ventricular paced rhythm, left bundle- branch pattern, uninterpretable ST segments, rate of 61, QTC of 498, no other abnormalities. MEDICATIONS: At discharge: 1. Ferrous sulfate 325 mg p.o. daily. 2. Levothyroxine 25 mcg p.o. daily. 3. Simvastatin 40 mg p.o. daily. 4. Vitamin B12 500 mcg p.o. b.i.d. 5. Nitroglycerin 0.4 mg sublingual q. 5 minutes as needed. 6. Carvedilol 12.5 mg p.o. b.i.d. 7. Hydroxychloroquine 400 mg p.o. daily. 8. Albuterol 2.5 mg inhalation q.i.d. as needed. 9. Insulin NPH regular 70/30, 5 units subcutaneous q.p.m. 10. Insulin NPH 70/30, 10 units subcutaneous q.a.m. 11. Lisinopril 2.5 mg p.o. daily. 12. Calcium carbonate 1000 mg p.o. b.i.d. 13. Guaifenesin 600 mg p.o. daily. 14. Aspirin 81 mg p.o. daily. 15. Protonix 40 mg p.o. daily. 16. Calcium carbonate with vitamin D one tab p.o. b.i.d. 17. Lomotil one tab p.o. daily as needed. 18. Tylenol 650 mg p.o. q. 4 hours as needed. 19. Cefotaxime 200 mg p.o. q. 12 hours x8. New medications at discharge: 1. Tylenol. 2. Cefotaxime. Medications discontinued at discharge: 1. Tessalon 200 mg p.o. t.i.d. 2. Torsemide 10 mg p.o. daily. 3. Amlodipine 10 mg p.o. daily. 4. Xeljanz 5 mg p.o. daily. HOSPITAL COURSE: This is a brief summary of the patient's presentation. For more details, please see the history and physical from Teena Leal NP from 02/22. In brief, the patient is a 77-year-old female with a past medical history as stated above, who is well known to this practice in the hospital for multiple previous admissions, who presents with general malaise. Patient has arthralgias, myalgias, and intermittent muscle spasms in her chest without associated symptoms. Patient had the urinalysis consistent with urinary tract infection, 3+ leukocyte esterase and 3+ bacteria, signs of inflammation. Hyponatremia and hyperkalemia, as well as acute kidney injury with a BUN of 80 and creatinine of 1.71. The patient had x- rays read as the above of her pelvis. Patient was admitted for urinary tract infection without sepsis and she had no lactic acidosis. Urine culture grew E. coli which was resistant to ampicillin and tetracycline and susceptible to ceftriaxone and she was started on ceftriaxone. Patient's potassium decreased from 6.0 to 5.8 without EKG changes. Patient was given Kayexalate and her potassium decreased to 3.9. On 02/23/17, patient was asymptomatic. Patient's blood glucose was initially greater than 244. Patient was given insulin on a sliding scale as well as Lantus at 5 units q. 12 hours and patient's blood sugars decreased into the 100s to 200s. On her last day in the hospital, patient's blood sugars were 102 and 179 in the morning and before lunch respectively. Patient's hemoglobin started at 11.6, then dropped to 8.4 and car again to 8.9. The second 2 values are pretty more at patient's baseline and the first likely represented dehydrated state. Patient was mildly hypotensive on admission, was give significant fluids, became mildly hypotensive and then remained normotensive for the remainder of her admission. Patient was not orthostatic on the day of her discharge, patient had a significantly increased BUN to creatinine ratio. The patient has a history of GI bleed with inappropriate response and erythropoietin administration previously. Patient had no symptoms such as dysuria, urinary frequency or hesitancy while in the hospital. Patient had no fevers. Patient had no growth on her blood cultures. Patient's creatinine decreased to 0.97 while she was in the hospital down from 1.71 at admission and slightly decreased from her baseline. Patient did have significantly increased intakes and outputs while in the hospital. However, patient's respiratory status never declined and never had any crackles in her lungs or swelling in her legs. Patient was likely dehydrated on admission. Patient had no complaints on 02/24/17 except for intermittent lightheadedness longstanding, which she states has been going on for quite a while and is not new or specific to this hospitalization. Patient was medically discharged to home with the support of her son. Patient was significantly acidotic while in the hospital with a non-anion gap metabolic acidosis likely from her acute kidney injury, which resolved with fluid. PHYSICAL EXAMINATION ON DAY OF DISCHARGE: General: The patient is a 77-year- old female, who appears stated age and sitting comfortably in the bed, in no acute distress. Vital Signs: At the time of discharge, temperature 98.5, pulse rate is 59, respiratory rate 16, oxygen saturation 99% on room air, blood pressure 120/60. HEENT: Head normocephalic, atraumatic. Sclerae anicteric. No conjunctival injection. Nasal mucosa moist. Oral mucosa moist. No pharyngeal erythema. Neck: Supple, nontender. No lymphadenopathy. No carotid bruit auscultated. Cardiac: Regular rate and rhythm without clicks, murmurs, gallops, or rubs. Pulses 2+ in the bilateral dorsalis pedis, posterior tibialis , and radial areas. Respiratory: Clear to auscultation bilaterally. No wheezes , rales or rhonchi. Good air exchange bilaterally. Abdomen: Soft, nontender, nondistended. No abdominal bruits auscultated. Bowel sounds are present and normoactive in all 4 quadrants. Genitourinary: No suprapubic tenderness or CVA tenderness. Skin: Clean, dry, intact with no rash. Musculoskeletal: Patient has significant joint inflammation with deformity of her fingers consistent with significant rheumatoid arthritis. Neuro: Cranial nerves II through XII grossly intact. No focal deficits. Alert and oriented x3. Psychiatric: Pleasant and cooperative. LABORATORY DATA: On day of discharge, white blood cell count 4.7, hemoglobin 8.9, platelet count 139. Sodium 140, potassium 3.6, chloride 117, carbon dioxide 18, anion gap 5. BUN 49, creatinine 0.97, glucose 87, hemoglobin A1c 7.5, calcium 8.2, and magnesium 1.7. Other laboratory values of note while in the hospital, carbon dioxide was 14 on admission and troponin I of 0.04. C- reactive protein of 69.54 on admission. DISCHARGE PLAN: The patient will be discharged to home with the support of her son. The patient appears to be euvolemic while in the hospital. At the time of discharge, patient should have a fluid restriction as discussed previously of 2 L per day. Patient should take her blood pressure medications as prescribed. At discharge, patient should hold her amlodipine and discuss restarting it with her primary care provider when she follows up in 1 week. Patient should resume her torsemide. Patient's BUN to creatinine ratio was significantly increased which might indicate GI bleed and given patient's slow GI bleed and patient's past history of GI bleeds, patient should discuss as an outpatient EGD with her primary care provider. However, the patient was not a good candidate previously for EGD and is most likely not at this time. No stool was able to be obtained while in the hospital for an occult blood testing. Patient should follow up with Hematology as needed for appropriate erythropoietin injections. Patient should follow up with her search marketing specialist as scheduled to discuss treatment for rheumatoid arthritis. Patient can resume Xeljanz when she is off her antibiotics for her urinary tract infection in 4 days. Patient should return to the hospital for any alarming symptoms such as significantly increased shortness of breath, chest pain, or other chronic symptoms. The patient should engage in activity as tolerated and should have a consistent carbohydrate diet. TIME SPENT: Approximately 60 minutes was spent on this discharge, 30 of which was spent [id number] with the patient obtaining history and physical and discussing treatment plan. JYOTI ARTHUR [id number]/[facility] #: [id number] CESAR
== END 2017-02-24 16:10 | disposition home or self-care (01) | DRG 690 ==
LOC: ED 03:29 → MED 07:05 → OBSVTOIN 02-23 13:01
PROVIDERS: ADMIT Hospitalist; ATTEND Internal Medicine
DX: N39.0 Urinary tract infection, site not specified (principal); N17.9 Acute kidney failure, unspecified; E87.2 Acidosis; E87.1 Hypo-osmolality and hyponatremia; E11.319 Type 2 diabetes mellitus with unspecified diabetic retinopathy without macular edema; D89.0 Polyclonal hypergammaglobulinemia; E87.5 Hyperkalemia; E86.0 Dehydration; I48.91 Unspecified atrial fibrillation; B96.20 Unspecified Escherichia coli [E. coli] as the cause of diseases classified elsewhere; J43.9 Emphysema, unspecified; M08.00 Unspecified juvenile rheumatoid arthritis of unspecified site; D63.8 Anemia in other chronic diseases classified elsewhere; Z16.11 Resistance to penicillins; Z16.29 Resistance to other single specified antibiotic; I25.10 Atherosclerotic heart disease of native coronary artery without angina pectoris; K21.9 Gastro-esophageal reflux disease without esophagitis; I13.10 Hypertensive heart and chronic kidney disease without heart failure, with stage 1 through stage 4 chronic kidney disease, or unspecified chronic kidney disease; I35.0 Nonrheumatic aortic (valve) stenosis; R07.9 Chest pain, unspecified; E78.5 Hyperlipidemia, unspecified; N18.3 Chronic kidney disease, stage 3 (moderate); M81.0 Age-related osteoporosis without current pathological fracture; M71.22 Synovial cyst of popliteal space [Baker], left knee; Z79.4 Long term (current) use of insulin; Z98.84 Bariatric surgery status; Z79.82 Long term (current) use of aspirin; Z95.0 Presence of cardiac pacemaker; Z95.2 Presence of prosthetic heart valve; Z79.899 Other long term (current) drug therapy; Z88.1 Allergy status to other antibiotic agents; Z88.5 Allergy status to narcotic agent; Z88.2 Allergy status to sulfonamides; Z82.49 Family history of ischemic heart disease and other diseases of the circulatory system; Z87.891 Personal history of nicotine dependence
CPT/HCPCS: 36415; 71010; 80048; 80053; 81003; 81015; 82803; 83036; 83605; 83735; 84484; 85025; 85610; 85652; 85730; 86140; 87040; 87077; 87086; 87186; 87502; 93005; 99284; A9270-GY; G0378; J0696; J1644; J3475

== ENCOUNTER 2017-05-17 15:07 | Emergency (ER) | payer MEDICARE, MEDICAID ==
[2017-05-17 16:14] LABS: INR 1.01 (0.77-1.02)
[2017-05-17 16:24] LABS: EGFR Non-African American 29.1 (>60)
--- NOTE | 2017-05-17 16:43 | RAD ---
INDICATION: Hypotension and weakness COMPARISON: Most recent comparison chest x-rays dated February 22, 2017 TECHNIQUE: Single AP portable view of the chest was obtained. FINDINGS: Image quality is compromised due to the relative inferiority of a portable chest x-ray. Postsurgical and iatrogenic findings are unchanged from the prior chest x-ray. The heart and mediastinum exhibit normal size and contour. There is coarse calcification overlying the arch of the aorta. The lungs are grossly clear. There is no evidence of a large pleural effusion. Visualized bones are normal for the patient's age. IMPRESSION: No radiographic evidence for acute cardiopulmonary abnormality on this portable chest x-ray.
[2017-05-17] MEDS ORDERED: NS 0.9% 1000 ML* 1,000 ML IV ONE (17:22)
[2017-05-17 18:25] LABS: ABS Basophils 0.1 10^3/ul (0-0.2); ABS Eosinophils 0.1 10^3/ul (0-0.6); ABS Lymphocytes 1.1 10^3/ul (1.0-4.8); ABS Monocytes 0.4 10^3/ul (0-0.8); ABS Neutrophils 4.6 10^3/ul (1.5-7.7); ABS Nucleated RBC 0 10^3/ul; Eosinophil % 2.1 % (0-6); Hematocrit 28 % (35-47); Hemoglobin 9.3 g/dl (12.0-16.0); Lymphocyte % 17.1 % (25-47); Mean Corpuscular HGB Conc 33 g/dl (31-36); Mean Corpuscular Hemoglobin 31 pg (27-31); Mean Corpuscular Volume 93 fL (80-97); Mean Platelet Volume 10.1 um3 (7.4-10.4); Nucleated Red Blood Cells % 0; Platelet Count 130 10^3/ul (150-450); Red Blood Count 3.03 10^6/ul (4.0-5.4); Red Cell Distribution Width 16 % (10.5-15); White Blood Count 6.3 10^3/ul (3.5-10.8)
--- NOTE | 2017-05-17 18:52 | ED ---
Uday Brown Thomas, scribed for Mathew Johnson MD on 05/17/17 at 1538 . Complex/Multi-Sys Presentation - HPI Summary HPI Summary: The patient is a 77 year old female referred from her doctors office with low blood pressure at 80/30. The patient complains of fatigue. Past medical history includes anemia. She complains of a runny nose and sore throat. She denies abdominal pain, vomiting, diarrhea, and bloody stools. - History Of Current Complaint Chief Complaint: EDWeakness Time Seen by Provider: 05/17/17 15:20 Hx Obtained From: Patient Onset/Duration: Still Present Timing: Constant Severity Initially: Moderate Location: Negative Aggravating Factor(s): None Alleviating Factor(s): None Associated Signs And Symptoms: Positive: Other - Low blood pressure, runny nose , fatigue, sore throat; NEGATIVE: abdominal pain, vomiting, diarrhea, bloody stools Related History: Other - Hx anemia - Allergies/Home Medications Allergies/Adverse Reactions: Allergies Allergy/AdvReac Type Severity Reaction Status Date / Time codeine Allergy Rash Verified 05/17/17 15:19 levofloxacin [From Levaquin] Allergy Agitation Verified 05/17/17 15:19 Sulfa (Sulfonamide Allergy Hives Verified 05/17/17 15:19 Antibiotics) PMH/Surg Hx/FS Hx/Imm Hx Endocrine/Hematology History: Reports: Hx Anticoagulant Therapy, Hx Blood Transfusions, Hx Diabetes, Hx Thyroid Disease, Hx Anemia, 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 Denies: Hx Systemic Lupus Erythematosus Cardiovascular History: Reports: Hx Angina, Hx Auto Implanted Cardiovert Defib, Hx Congestive Heart Failure, Hx Coronary Artery Disease, Hx Deep Vein Thrombosis - Man-made clot caused by nurse 40+ years ago, Hx Hypercholesterolemia, Hx Hypertension, Hx Pacemaker/ICD, Hx Valvular Heart Disease, Other Cardiovascular Problems/Disorders - Aortic valve replacement, bradycardia, cardiac catherization Denies: Hx Myocardial Infarction, Hx Rheumatic Fever, Hx Syncope Respiratory History: Reports: Hx Asthma, Hx Chronic Obstructive Pulmonary Disease (COPD), Hx Pneumonia Denies: Hx Lung Cancer, Hx Sleep Apnea GI History: Reports: Hx Ulcer - Peptic ulcer disease, Other GI Disorders - gastric bypass Denies: Hx Gastroesophageal Reflux Disease History: Reports: Other Problems/Disorders - UTIs, CKD Denies: Hx Kidney Stones, Hx Renal Disease Musculoskeletal History: Reports: Hx Arthritis, Hx Rheumatoid Arthritis, Hx Back Problems, Hx Osteoporosis Denies: Hx Gout, Hx Orthopedic Injury Sensory History: Reports: Hx Cataracts, Hx Contacts or Glasses, Other Sensory Impairments - Retinoplasty Denies: Hx Hearing Aid, Hx Hearing Problem Opthamlomology History: Reports: Hx Cataracts, Hx Contacts or Glasses, Other Sensory Impairments - Retinoplasty Neurological History: Denies: Hx Dementia, Hx Developmental Delay, Hx Headaches, Hx Migraine, Hx Nerve Disease, Hx Seizures, Hx Spinal Cord Injury, Hx Transient Ischemic Attacks (TIA), Other Neuro Impairments/Disorders Psychiatric History: Reports: Hx Depression - Cancer History Cancer Type, Location and Year: Two sisters had breast cancer - Surgical History Surgery Procedure, Year, and Place: Hysterectomy. Appendectomy. Tonsillectomy. Bilateral Knee Arthroscopy. Diabetic Retinopathy-eye surgery. Bilateral Cataract removal. Sinus Surgery. Florentin-en-y gastric bypass, 2007. Cholecystecomy 2009. Carpal Tunnel Surgery. Aortic Valve replacement, 2016, [facility] Anesthesia Reactions: No - Immunization History Date of Tetanus Vaccine: utd Date of Influenza Vaccine: utd Infectious Disease History: No Infectious Disease History: Reports: Hx Clostridium Difficile Denies: Hx Hepatitis, Hx Human Immunodeficiency Virus (HIV), Hx of Known/ Suspected MRSA, Hx Shingles, Hx Tuberculosis, Hx Known/Suspected VRE, Hx Known/ Suspected VRSA, History Other Infectious Disease, Traveled Outside the in Last 30 Days - Family History Known Family History: Positive: Cardiac Disease, Diabetes, Other - Breast Cancer - Social History Alcohol Use: Rare Substance Use Type: Reports: None Hx Tobacco Use: Yes - quit > 20 yrs ago Smoking Status (MU): Former Smoker Type: Cigarettes Have You Smoked in the Last Year: No Review of Systems Positive: Fatigue Positive: Sore Throat, Nasal Discharge Positive: Other - Low BP Negative: Abdominal Pain, Vomiting, Diarrhea, Other - bloody stools All Other Systems Reviewed And Are Negative: Yes Physical Exam - Summary Physical Exam Summary: General: well-appearing, no pain distress Skin: warm, color reflects adequate perfusion, dry Head: normal Eyes: EOMI, NEMO ENT: dry oral mucosa. Neck: supple, nontender Respiratory: CTA, breath sounds present Cardiovascular: RRR. There is a mechanical click with the heart beats. Abdomen: soft, nontender Bowel: present Musculoskeletal: normal, strength/ROM intact Neurological: normal, sensory/motor intact, A&O x3 Psychological: affect/mood appropriate Triage Information Reviewed: Yes Vital Signs On Initial Exam: Initial Vitals Temp Pulse Resp BP Pulse Ox 96.1 F 60 18 123/35 100 05/17/17 15:10 05/17/17 15:10 05/17/17 15:10 05/17/17 15:10 05/17/17 15:10 Vital Signs Reviewed: Yes Diagnostics - Vital Signs Vital Signs Temp Pulse Resp BP Pulse Ox 05/17/17 15:10 96.1 F 60 18 123/35 100 - Laboratory Lab Results: Lab Results 05/17/17 05/17/17 05/17/17 Range/Units 15:46 15:46 15:46 WBC 6.3 (3.5-10.8) 10^3/ul RBC 3.03 L (4.0-5.4) 10^6/ul Hgb 9.3 L (12.0-16.0) g/dl Hct 28 L (35-47) % MCV 93 (80-97) fL MCH 31 (27-31) pg MCHC 33 (31-36) g/dl RDW 16 H (10.5-15) % Plt Count 130 L (150-450) 10^3/ul MPV 10.1 (7.4-10.4) um3 Neut % (Auto) 73.8 (38-83) % Lymph % (Auto) 17.1 L (25-47) % Meeker % (Auto) 6.1 (0-7) % Eos % (Auto) 2.1 (0-6) % Baso % (Auto) 0.9 (0-2) % Absolute Neuts (auto) 4.6 (1.5-7.7) 10^3/ul Absolute Lymphs (auto) 1.1 (1.0-4.8) 10^3/ul Absolute Monos (auto) 0.4 (0-0.8) 10^3/ul Absolute Eos (auto) 0.1 (0-0.6) 10^3/ul Absolute Basos (auto) 0.1 (0-0.2) 10^3/ul Absolute Nucleated RBC 0 10^3/ul Nucleated RBC % 0 INR (Anticoag Therapy) 1.01 (0.77-1.02) APTT 30.4 (26.0-36.3) seconds Sodium 135 (133-145) mmol/L Potassium 4.7 (3.5-5.0) mmol/L Chloride 107 (101-111) mmol/L Carbon Dioxide 20 L (22-32) mmol/L Anion Gap 8 (2-11) mmol/L BUN 72 H (6-24) mg/dL Creatinine 1.70 H (0.51-0.95) mg/dL Est GFR ( Amer) 37.4 (>60) Est GFR (Non-Af Amer) 29.1 (>60) BUN/Creatinine Ratio 42.4 H (8-20) Glucose 172 H (70-100) mg/dL Lactic Acid (0.5-2.0) mmol/L Calcium 8.8 (8.6-10.3) mg/dL Magnesium 1.8 L (1.9-2.7) mg/dL Total Bilirubin 0.30 (0.2-1.0) mg/dL AST 22 (13-39) U/L ALT 19 (7-52) U/L Alkaline Phosphatase 52 (34-104) U/L Total Creatine Kinase 88 (10-223) U/L CK-MB (CK-2) 3.5 (0.6-6.3) ng/mL Troponin I 0.01 (<0.04) ng/mL C-Reactive Protein 5.16 H (< 5.00) mg/L B-Natriuretic Peptide ( - 100) pg/mL Total Protein 6.9 (6.4-8.9) g/dL Albumin 3.4 (3.2-5.2) g/dL Globulin 3.5 (2-4) g/dL Albumin/Globulin Ratio 1.0 (1-3) Lipase 15 (11.0-82.0) U/L TSH 3.06 (0.34-5.60) mcIU/mL 05/17/17 05/17/17 Range/Units 15:46 15:46 WBC (3.5-10.8) 10^3/ul RBC (4.0-5.4) 10^6/ul Hgb (12.0-16.0) g/dl Hct (35-47) % MCV (80-97) fL MCH (27-31) pg MCHC (31-36) g/dl RDW (10.5-15) % Plt Count (150-450) 10^3/ul MPV (7.4-10.4) um3 Neut % (Auto) (38-83) % Lymph % (Auto) (25-47) % Meeker % (Auto) (0-7) % Eos % (Auto) (0-6) % Baso % (Auto) (0-2) % Absolute Neuts (auto) (1.5-7.7) 10^3/ul Absolute Lymphs (auto) (1.0-4.8) 10^3/ul Absolute Monos (auto) (0-0.8) 10^3/ul Absolute Eos (auto) (0-0.6) 10^3/ul Absolute Basos (auto) (0-0.2) 10^3/ul Absolute Nucleated RBC 10^3/ul Nucleated RBC % INR (Anticoag Therapy) (0.77-1.02) APTT (26.0-36.3) seconds Sodium (133-145) mmol/L Potassium (3.5-5.0) mmol/L Chloride (101-111) mmol/L Carbon Dioxide (22-32) mmol/L Anion Gap (2-11) mmol/L BUN (6-24) mg/dL Creatinine (0.51-0.95) mg/dL Est GFR ( Amer) (>60) Est GFR (Non-Af Amer) (>60) BUN/Creatinine Ratio (8-20) Glucose (70-100) mg/dL Lactic Acid 1.2 (0.5-2.0) mmol/L Calcium (8.6-10.3) mg/dL Magnesium (1.9-2.7) mg/dL Total Bilirubin (0.2-1.0) mg/dL AST (13-39) U/L ALT (7-52) U/L Alkaline Phosphatase (34-104) U/L Total Creatine Kinase (10-223) U/L CK-MB (CK-2) (0.6-6.3) ng/mL Troponin I (<0.04) ng/mL C-Reactive Protein (< 5.00) mg/L B-Natriuretic Peptide 142 H ( - 100) pg/mL Total Protein (6.4-8.9) g/dL Albumin (3.2-5.2) g/dL Globulin (2-4) g/dL Albumin/Globulin Ratio (1-3) Lipase (11.0-82.0) U/L TSH (0.34-5.60) mcIU/mL Result Diagrams: 05/17/17 15:46 05/17/17 15:46 Lab Statement: Any lab studies that have been ordered have been reviewed, and results considered in the medical decision making process. - CT CXR CT Interpretation: No Acute Changes - IMPRESSION: No radiographic evidence for acute cardiopulmonary abnormality on this portable chest x-ray. Dr. Johnson has reviewed this report. CT Interpretation Completed By: Radiologist - EKG 15:46 Cardiac Rate: NL EKG Interpretation: Paced at 62 BPM. Re-Evaluation - Re-Evaluation First Eval Re-Evaluation Time: 18:38 Change: Improved Comment: The patient was able to ambulate. Complex Multi-Symp Course/Dx Course Of Treatment: Medications reviewed. Allergies noted. PATIENT FEELS IMPROVED AFTER IVF IN ED. AMBULATED IN THE ED. PATIENT WISHES TO GO HOME. RESULTS DISCUSSED WITH PATIENT AND FAMILY. - Diagnoses Provider Diagnoses: Dehydration Discharge - Sign-Out/Discharge Documenting (check all that apply): Discharge - Discharge Plan Condition: Stable Disposition: HOME Patient Education Materials: Dehydration (ED) Referrals: Vanesa Alexandra [facility] [Primary Care Provider] - Additional Instructions: FOLLOW UP WITH YOUR DOCTOR. RETURN TO THE EMERGENCY DEPARTMENT FOR ANY WORSENING OF YOUR CONDITION OR QUESTIONS OR CONCERNS. YOUR BLOOD PRESSURE WAS ELEVATED TODAY; FOLLOW UP WITH YOUR PRIMARY CARE DOCTOR WITHIN ONE WEEK. - Billing Disposition and Condition Condition: STABLE Disposition: HOME The documentation as recorded by the Uday jc Thomas accurately reflects the service I personally performed and the decisions made by me, Mathew Johnson MD.
[2017-05-17 19:09] VITALS: BP 134/55
== END 2017-05-17 19:09 | disposition home or self-care (01) ==
LOC: ED 15:07
DX: E86.0 Dehydration (principal); R53.83 Other fatigue; R09.89 Other specified symptoms and signs involving the circulatory and respiratory systems; J02.9 Acute pharyngitis, unspecified; E11.9 Type 2 diabetes mellitus without complications; Z79.4 Long term (current) use of insulin; D64.9 Anemia, unspecified; D89.0 Polyclonal hypergammaglobulinemia; I25.119 Atherosclerotic heart disease of native coronary artery with unspecified angina pectoris; I11.0 Hypertensive heart disease with heart failure; I50.9 Heart failure, unspecified; Z86.718 Personal history of other venous thrombosis and embolism; Z79.01 Long term (current) use of anticoagulants; E78.00 Pure hypercholesterolemia, unspecified; E11.22 Type 2 diabetes mellitus with diabetic chronic kidney disease; J44.9 Chronic obstructive pulmonary disease, unspecified; I13.0 Hypertensive heart and chronic kidney disease with heart failure and stage 1 through stage 4 chronic kidney disease, or unspecified chronic kidney disease; N18.9 Chronic kidney disease, unspecified; Z95.810 Presence of automatic (implantable) cardiac defibrillator; Z87.440 Personal history of urinary (tract) infections; F32.9 Major depressive disorder, single episode, unspecified; Z88.1 Allergy status to other antibiotic agents; Z88.5 Allergy status to narcotic agent; Z88.2 Allergy status to sulfonamides; Z87.891 Personal history of nicotine dependence
CPT/HCPCS: 36415; 71045; 80053; 82550; 82553; 83605; 83690; 83735; 83880; 84443; 84484; 85025; 85610; 85730; 86140; 93005; 96360; 99283

== ENCOUNTER 2017-05-31 20:49 | Observation (INO) | payer MEDICARE, MEDICAID ==
[2017-05-31] MEDS ORDERED: NS 0.9% 1000 ML*IV.FLUID IV ONE (21:55)
[2017-05-31 22:24] LABS: ABS Basophils 0 10^3/ul (0-0.2); ABS Eosinophils 0.1 10^3/ul (0-0.6); ABS Lymphocytes 1.8 10^3/ul (1.0-4.8); ABS Monocytes 0.5 10^3/ul (0-0.8); ABS Neutrophils 4.1 10^3/ul (1.5-7.7); ABS Nucleated RBC 0 10^3/ul; Eosinophil % 2.1 % (0-6); Hematocrit 23 % (35-47); Hemoglobin 7.6 g/dl (12.0-16.0); Lymphocyte % 27.5 % (25-47); Mean Corpuscular HGB Conc 34 g/dl (31-36); Mean Corpuscular Hemoglobin 31 pg (27-31); Mean Corpuscular Volume 93 fL (80-97); Mean Platelet Volume 8.2 um3 (7.4-10.4); Nucleated Red Blood Cells % 0; Platelet Count 164 10^3/ul (150-450); Red Blood Count 2.44 10^6/ul (4.0-5.4); Red Cell Distribution Width 16 % (10.5-15); White Blood Count 6.6 10^3/ul (3.5-10.8)
[2017-05-31 22:33] LABS: INR 1.02 (0.77-1.02)
[2017-05-31 22:44] LABS: EGFR Non-African American 25.9 (>60)
[2017-05-31] MEDS ORDERED: Dextrose 50% Syringe 50 ML* 25 GM/50 ML SYRINGE IV PUSH ONE (23:10)
[2017-05-31] MEDS ORDERED: Dextrose 50% Syringe 50 ML* 25 GM/50 ML SYRINGE ONE (23:11)
[2017-06-01 00:46] LABS: Urine Appearance Cloudy; Urine Blood Negative (Negative); Urine Color Yellow; Urine Ketones Negative (Negative); Urine Protein Negative (Negative); Urine Specific Gravity 1.008 (1.010-1.030); Urine Urobilinogen Negative (Negative)
[2017-06-01] MEDS ORDERED: Piperacillin/Tazobac ADVAN(*) 3.375 GM in NS 0.9% 100 ML* 100 ML IVPB ONE (01:05)
--- NOTE | 2017-06-01 02:41 | ED ---
Harvey Brown Stephanie, scribed for Colin Hurley MD on 05/31/17 at 2206 . Dizziness - HPI Summary HPI Summary: The pt is a 77 y/o F presenting to the ED with c/o lightheadedness that occurred at 15:00 today. Symptoms include blurred vision. The pt denies fever, SOB, diarrhea, blood in stool and urinary symptoms. She reports she had a BM yesterday. The pt states she experienced a fall last week when she bent over to try to peanut picker her kittens and she fell on her buttock. She takes aspirin. - History Of Current Complaint Chief Complaint: EDWeakness Stated Complaint: WEAKNESS Time Seen by Provider: 05/31/17 21:35 Hx Obtained From: Patient, Family/Fire Equipment Repairer Inspector - son Onset/Duration: Still Present Timing: Constant Severity Currently: Moderate Character: Lightheaded, Dizzy Aggravating Factor(s): Nothing Alleviating Factor(s): Nothing Associated Signs And Symptoms: Positive: Visual Changes, Other: - lightheadedness. Denies urinary symptoms. Negative: Diarrhea, SOB, Fever, Blood In Stool - Allergies/Home Medications Allergies/Adverse Reactions: Allergies Allergy/AdvReac Type Severity Reaction Status Date / Time codeine Allergy Rash Verified 05/31/17 20:58 levofloxacin [From Levaquin] Allergy Agitation Verified 05/31/17 20:58 Sulfa (Sulfonamide Allergy Hives Verified 05/31/17 20:58 Antibiotics) PMH/Surg Hx/FS Hx/Imm Hx Endocrine/Hematology History: Reports: Hx Anticoagulant Therapy, Hx Blood Transfusions, Hx Diabetes, Hx Thyroid Disease, Hx Anemia, 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 Denies: Hx Systemic Lupus Erythematosus Cardiovascular History: Reports: Hx Angina, Hx Auto Implanted Cardiovert Defib, Hx Congestive Heart Failure, Hx Coronary Artery Disease, Hx Deep Vein Thrombosis - Man-made clot caused by nurse 40+ years ago, Hx Hypercholesterolemia, Hx Hypertension, Hx Pacemaker/ICD, Hx Valvular Heart Disease, Other Cardiovascular Problems/Disorders - Aortic valve replacement, bradycardia, cardiac catherization Denies: Hx Myocardial Infarction, Hx Rheumatic Fever, Hx Syncope Respiratory History: Reports: Hx Asthma, Hx Chronic Obstructive Pulmonary Disease (COPD), Hx Pneumonia Denies: Hx Lung Cancer, Hx Sleep Apnea GI History: Reports: Hx Ulcer - Peptic ulcer disease, Other GI Disorders - gastric bypass Denies: Hx Gastroesophageal Reflux Disease History: Reports: Other Problems/Disorders - UTIs, CKD Denies: Hx Kidney Stones, Hx Renal Disease Musculoskeletal History: Reports: Hx Arthritis, Hx Rheumatoid Arthritis, Hx Back Problems, Hx Osteoporosis Denies: Hx Gout, Hx Orthopedic Injury Sensory History: Reports: Hx Cataracts, Hx Contacts or Glasses, Other Sensory Impairments - Retinoplasty Denies: Hx Hearing Aid, Hx Hearing Problem Opthamlomology History: Reports: Hx Cataracts, Hx Contacts or Glasses, Other Sensory Impairments - Retinoplasty Neurological History: Denies: Hx Dementia, Hx Developmental Delay, Hx Headaches, Hx Migraine, Hx Nerve Disease, Hx Seizures, Hx Spinal Cord Injury, Hx Transient Ischemic Attacks (TIA), Other Neuro Impairments/Disorders Psychiatric History: Reports: Hx Depression - Cancer History Cancer Type, Location and Year: Two sisters had breast cancer - Surgical History Surgery Procedure, Year, and Place: Hysterectomy. Appendectomy. Tonsillectomy. Bilateral Knee Arthroscopy. Diabetic Retinopathy-eye surgery. Bilateral Cataract removal. Sinus Surgery. Florentin-en-y gastric bypass, 2007. Cholecystecomy 2009. Carpal Tunnel Surgery. Aortic Valve replacement, 2016, [facility] Anesthesia Reactions: No - Immunization History Date of Tetanus Vaccine: utd Date of Influenza Vaccine: utd Infectious Disease History: No Infectious Disease History: Reports: Hx Clostridium Difficile Denies: Hx Hepatitis, Hx Human Immunodeficiency Virus (HIV), Hx of Known/ Suspected MRSA, Hx Shingles, Hx Tuberculosis, Hx Known/Suspected VRE, Hx Known/ Suspected VRSA, History Other Infectious Disease, Traveled Outside the [place] in Last 30 Days - Family History Known Family History: Positive: Cardiac Disease, Diabetes, Other - Breast Cancer - Social History Occupation: Retired Lives: With Family Alcohol Use: Rare Hx Substance Use: No Substance Use Type: Reports: None Hx Tobacco Use: Yes - quit > 20 yrs ago Smoking Status (MU): Former Smoker Type: Cigarettes Have You Smoked in the Last Year: No Review of Systems Negative: Fever Positive: Blurred Vision Negative: Shortness Of Breath Gastrointestinal: Negative - blood in stool Negative: Diarrhea Positive: no symptoms reported Neurological: Other - lightheadedness All Other Systems Reviewed And Are Negative: Yes Physical Exam - Summary Physical Exam Summary: VITAL SIGNS: Reviewed. GENERAL: Patient is FEMALE who is lying comfortable in the stretcher. She appears lethargic and pale. Patient is not in any acute respiratory distress. HEAD AND FACE: No signs of trauma. No ecchymosis, hematomas or skull depressions. No sinus tenderness. EYES: PERRLA, EOMI x 2, No injected conjunctiva, no nystagmus. EARS: Hearing grossly intact. Ear canals and tympanic membranes are within normal limits. MOUTH: Oropharynx within normal limits. NECK: Supple, trachea is midline, no adenopathy, no JVD, no carotid bruit, no c- spine tenderness, neck with full ROM. CHEST: Symmetric, no tenderness at palpation LUNGS: Clear to auscultation bilaterally. No wheezing or crackles. CVS: Regular rate and rhythm, S1 and S2 present, no gallops appreciated. Systolic murmur over sternal boarder 2-6. ABDOMEN: Soft, non-tender. No signs of distention. No rebound no guarding, and no masses palpated. Bowel sounds are normal. EXTREMITIES: FROM in all major joints, no edema, no cyanosis or clubbing. NEURO: Alert and oriented x 3. No acute neurological deficits. Speech is normal and follows commands. SKIN: Dry and warm Rectal:The pt has a soft fecal impaction. Stools are brown. Sent for occult blood. No hemorrhoids. Triage Information Reviewed: Yes Vital Signs On Initial Exam: Initial Vitals Temp Pulse Resp BP Pulse Ox 98.1 F 70 16 91/36 99 05/31/17 20:54 05/31/17 20:54 05/31/17 20:54 05/31/17 20:54 05/31/17 20:54 Vital Signs Reviewed: Yes Diagnostics - Vital Signs Vital Signs Temp Pulse Resp BP Pulse Ox 05/31/17 21:33 15 99/36 05/31/17 21:25 70 13 121/42 100 05/31/17 20:54 98.1 F 70 16 91/36 99 - Laboratory Result Diagrams: 05/31/17 22:12 05/31/17 22:12 Lab Statement: Any lab studies that have been ordered have been reviewed, and results considered in the medical decision making process. - Radiology CXR Xray Interpretation: No Acute Changes Radiology Interpretation Completed By: ED Physician - NO ACUTE PROCESS. Pending official reading. - CT Abd/Pelvis CT Interpretation: Positive (See Comments) - Small left pleural fluid collection. ED physician has reviewed this report. CT Interpretation Completed By: Radiologist - EKG 00:33 Cardiac Rate: NL EKG Rhythm: Sinus Rhythm - 62 BPM EKG Interpretation: Paced rhythm Dizzy Course/Dx - Course Course Of Treatment: The pt is a 77 y/o F presenting to the ED with c/o lightheadedness that occurred at 15:00 today. Symptoms include blurred vision. The pt denies fever, SOB, diarrhea, blood in stool and urinary symptoms. She reports she had a BM yesterday. The pt states she experienced a fall last week when she bent over to try to peanut picker her kittens and she fell on her buttock. She takes aspirin. At 23:22, ED physician performed rectal exam. The pt has a soft fecal impaction. Stools are brown. Sent for occult blood. No hemorrhoids. - Diagnoses Provider Diagnoses: Symptomatic anemia, UTI (urinary tract infection), Weakness - Provider Notifications Discussed Care Of Patient With: Rancho Youssef Time Discussed With Above Provider: 01:17 Instructed by Provider To: Admit As Inpatient Discharge - Sign-Out/Discharge Documenting (check all that apply): Discharge - Discharge Plan Condition: Stable Disposition: ADMITTED TO [facility] Referrals: Vanesa Alexandra, HUMAN SERVICES MANAGER [Primary Care Provider] - The documentation as recorded by the Harvey jc Stephanie accurately reflects the service I personally performed and the decisions made by me, Colin Hurley MD.
[2017-06-01] MEDS ORDERED: Ondansetron INJ* 2 MG/ML VIAL IV PRN (02:43)
[2017-06-01] MEDS ORDERED: Albuterol 2.5 MG/3 ML NEB.SOL* (0.083%) INH PRN (02:43)
[2017-06-01] MEDS ORDERED: Acetaminophen TAB* 325 MG PO PRN (02:43)
[2017-06-01] MEDS ORDERED: CMCS: Melatonin (NF) 3 MG TAB PO PRN (02:43)
--- NOTE | 2017-06-01 02:44 | HP ---
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 She denies chest pain, SOB, F/C, sweats, cough, congestion, change in bowel/bladder, or other issues. ED evaluation reveals acute on chronic anemia with HGB 7.6 (down from 9.3 two weeks ago), BUN 75 (up from her baseline of ~50), & stool negative for blood. 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 Ferrous Sulfate TAB* 325 mg PO DAILY 07/16/14 Levothyroxine TAB* [Synthroid 25 MCG TAB*] 25 mcg PO DAILY 12/28/14 Simvastatin (NF) [Zocor (NF)] 40 mg PO DAILY 12/28/14 Cyanocobalamin TAB* [Vitamin B12 TAB*] 500 mcg PO BID 03/25/15 Carvedilol TAB* [Coreg TAB*] 12.5 mg PO BID #0 05/03/15 Nitroglycerin TAB 0.4 MG* 0.4 mg SL Q5M PRN 05/03/15 Hydroxychloroquine TAB* [Plaquenil TAB*] 400 mg PO DAILY 10/25/15 Albuterol 2.5MG/3ML (0.083%)* [Ventolin 2.5 MG/3 ML NEB.SHERRI*] 2.5 mg INH QID PRN 10/31/15 Calcium Carbonate [Tums Ultra] 1,000 mg PO BID 10/31/15 Insulin NPH Hum/Reg Insulin Hm [Humulin 70/30 Kwikpen] 5 units SUBCUT QPM Insulin NPH Hum/Reg Insulin Hm [Humulin 70/30 Kwikpen] 10 units SUBCUT QAM 10/30 Lisinopril TAB* [Prinivil TAB 5 MG*] 2.5 mg PO DAILY 10/31/15 guaiFENesin ER TAB [Mucinex*] 600 mg PO DAILY 12/05/15 Aspirin [Aspirin 81 MG TAB] 81 mg PO DAILY 09/12/16 Pantoprazole TAB (NF) [Protonix TAB (NF)] 40 mg PO DAILY 09/12/16 Victorino/D3/Mag11/Zinc/Rotary Derrick Operator/Kulwant/Bor [Caltrate 600+D Plus Tablet] 1 tab PO BID Diphenoxylat/Atrop 2.5-0.025M* [Lomotil TAB*] 1 tab PO DAILY PRN #15 tab MDD 1 tab 11/12/16 Acetaminophen TAB* [Tylenol TAB*] 650 mg PO Q4H PRN tab 02/24/17 Cefpodoxime (NF) [Vantin 200 MG TAB (NF)] 200 mg PO Q12H #8 tab 02/24/17 Allergies codeine Allergy (Verified 05/31/17 20:58) Rash levofloxacin [From Levaquin] Allergy (Verified 05/31/17 20:58) Agitation Sulfa (Sulfonamide Antibiotics) Allergy (Verified 05/31/17 20:58) Hives PSurgHx TAVR 2006 gastric bypass pacer placement SocHx: quit smoking ~40 years ago, denies alcohol & recreational drugs; lives with her son; full code status FamHx: Mother: passed of CAD in her 80s; Father: passed of CAD in his 70s ROS: as above, otherwise reviewed and all were negative vitals: Vital Signs Temp 36.7 C 05/31/17 20:54 Pulse 60 06/01/17 00:02 Resp 12 06/01/17 00:02 BP 75/28 06/01/17 00:01 Pulse Ox 98 06/01/17 00:02 Intake & Output 05/31/17 05/31/17 06/01/17 11:59 23:59 11:59 Weight 53.07 kg Constitutional: NAD, normally developed, well-nourished elderly white female HEENM: atraumatic; sclera/conjunctiva: anicteric/clear; hearing: clinically intact; oropharynx: clear, mucosa tacky Neck: soft tissue: non-tender; thyroid: normal Pulmonary: clear to auscultation bilaterally, good aeration, no accessory muscle use CV: RR/RR, normal S1S2, no carotid bruit, no jugular venous distention, 2+ B DP/ PT, no edema Abdominal: soft, non-distended, non-tender, no rebound/guarding/rigidity, normoactive bowel sounds, no hepatosplenomegaly or masses, no costovertebral angle tenderness Musculoskeletal: general: grossly intact, no tenderness to palpation Integumental: pale, normal texture to exposed skin Psychiatric orientation: AA&O to PPS affect: calm mood: fatigued eye contact: fair content: reliable responses: mildly slowed insight: good Testing: Lab Results 05/31/17 05/31/17 05/31/17 Range/Units 22:12 22:12 22:12 WBC 6.6 (3.5-10.8) 10^3/ul RBC 2.44 L (4.0-5.4) 10^6/ul Hgb 7.6 L (12.0-16.0) g/dl Hct 23 L (35-47) % MCV 93 (80-97) fL MCH 31 (27-31) pg MCHC 34 (31-36) g/dl RDW 16 H (10.5-15) % Plt Count 164 (150-450) 10^3/ul MPV 8.2 (7.4-10.4) um3 Neut % (Auto) 61.8 (38-83) % Lymph % (Auto) 27.5 (25-47) % Rolette % (Auto) 8.0 H (0-7) % Eos % (Auto) 2.1 (0-6) % Baso % (Auto) 0.6 (0-2) % Absolute Neuts (auto) 4.1 (1.5-7.7) 10^3/ul Absolute Lymphs (auto) 1.8 (1.0-4.8) 10^3/ul Absolute Monos (auto) 0.5 (0-0.8) 10^3/ul Absolute Eos (auto) 0.1 (0-0.6) 10^3/ul Absolute Basos (auto) 0 (0-0.2) 10^3/ul Absolute Nucleated RBC 0 10^3/ul Nucleated RBC % 0 INR (Anticoag Therapy) 1.02 (0.77-1.02) APTT 29.0 (26.0-36.3) seconds Sodium 136 L (139-145) mmol/L Potassium 4.4 (3.5-5.0) mmol/L Chloride 107 (101-111) mmol/L Carbon Dioxide 20 L (22-32) mmol/L Anion Gap 9 (2-11) mmol/L BUN 75 H (6-24) mg/dL Creatinine 1.88 H (0.51-0.95) mg/dL Est GFR ( Amer) 33.3 (>60) Est GFR (Non-Af Amer) 25.9 (>60) BUN/Creatinine Ratio 39.9 H (8-20) Glucose 54 L (70-100) mg/dL Lactic Acid (0.5-2.0) mmol/L Calcium 7.9 L (8.6-10.3) mg/dL Total Bilirubin 0.30 (0.2-1.0) mg/dL AST 16 (13-39) U/L ALT 14 (7-52) U/L Alkaline Phosphatase 48 (34-104) U/L Troponin I 0.03 (<0.04) ng/mL C-Reactive Protein 4.74 (< 5.00) mg/L Total Protein 6.2 L (6.4-8.9) g/dL Albumin 3.0 L (3.2-5.2) g/dL Globulin 3.2 (2-4) g/dL Albumin/Globulin Ratio 0.9 L (1-3) Urine Color Urine Appearance Urine pH (5-9) Ur Specific Wheelwright (1.010-1.030) Urine Protein (Negative) Urine Ketones (Negative) Urine Blood (Negative) Urine Nitrate (Negative) Urine Bilirubin (Negative) Urine Urobilinogen (Negative) Ur Leukocyte Esterase (Negative) Urine WBC (Auto) (Absent) Urine RBC (Auto) (Absent) Urine Bacteria (Absent) Hyaline Casts (Absent) Urine Glucose (Negative) Urine Ascorbic Acid (Negative) Blood Type Antibody Screen Crossmatch 05/31/17 05/31/17 05/31/17 Range/Units 22:12 22:12 23:38 WBC (3.5-10.8) 10^3/ul RBC (4.0-5.4) 10^6/ul Hgb (12.0-16.0) g/dl Hct (35-47) % MCV (80-97) fL MCH (27-31) pg MCHC (31-36) g/dl RDW (10.5-15) % Plt Count (150-450) 10^3/ul MPV (7.4-10.4) um3 Neut % (Auto) (38-83) % Lymph % (Auto) (25-47) % Rolette % (Auto) (0-7) % Eos % (Auto) (0-6) % Baso % (Auto) (0-2) % Absolute Neuts (auto) (1.5-7.7) 10^3/ul Absolute Lymphs (auto) (1.0-4.8) 10^3/ul Absolute Monos (auto) (0-0.8) 10^3/ul Absolute Eos (auto) (0-0.6) 10^3/ul Absolute Basos (auto) (0-0.2) 10^3/ul Absolute Nucleated RBC 10^3/ul Nucleated RBC % INR (Anticoag Therapy) (0.77-1.02) APTT (26.0-36.3) seconds Sodium (139-145) mmol/L Potassium (3.5-5.0) mmol/L Chloride (101-111) mmol/L Carbon Dioxide (22-32) mmol/L Anion Gap (2-11) mmol/L BUN (6-24) mg/dL Creatinine (0.51-0.95) mg/dL Est GFR ( Amer) (>60) Est GFR (Non-Af Amer) (>60) BUN/Creatinine Ratio (8-20) Glucose (70-100) mg/dL Lactic Acid 0.5 (0.5-2.0) mmol/L Calcium (8.6-10.3) mg/dL Total Bilirubin (0.2-1.0) mg/dL AST (13-39) U/L ALT (7-52) U/L Alkaline Phosphatase (34-104) U/L Troponin I (<0.04) ng/mL C-Reactive Protein (< 5.00) mg/L Total Protein (6.4-8.9) g/dL Albumin (3.2-5.2) g/dL Globulin (2-4) g/dL Albumin/Globulin Ratio (1-3) Urine Color Yellow Urine Appearance Cloudy Urine pH 5.0 (5-9) Ur Specific Wheelwright 1.008 L (1.010-1.030) Urine Protein Negative (Negative) Urine Ketones Negative (Negative) Urine Blood Negative (Negative) Urine Nitrate Negative (Negative) Urine Bilirubin Negative (Negative) Urine Urobilinogen Negative (Negative) Ur Leukocyte Esterase 2+ A (Negative) Urine WBC (Auto) 3+(>20/hpf) A (Absent) Urine RBC (Auto) Trace(0-2/hpf) (Absent) Urine Bacteria 3+ A (Absent) Hyaline Casts Present A (Absent) Urine Glucose Negative (Negative) Urine Ascorbic Acid * A (Negative) Blood Type O Positive Antibody Screen Negative Crossmatch See Detail ECG, personally reviewed: ventricularly paced rhythm rate 62 CXR, personally reviewed: dual chamber pacer, TAVR device, no acute process CT abd/pel WO, personally reviewed: report pending; no acute process, extensive vascular calcification Impression: 77F presenting with acute on chronic anemia with increased BUN, negative stool occult blood DIAGNOSIS & PLAN Primary acute on chronic anemia : HX severe PUD on PPI : transfuse 2 units pRBCs : trend H&H : supplemental oxygen : supportive care severe PUD : pantoprazole bolus/GTT : consider GI consult in AM Secondary TAVR 2006 : no acute issues CAD : review meds once reconciled, hold aspirin polyclonal hypergammaglobulinemia : no acute issues DM2 w/ retinopathy : update A1c : review meds once reconciled : basal/bolus/correctional insulin chronic AFIB : not on anticoagulation 2nd severe PUD, chronic anemia COPD : review meds once reconciled 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 upper GI bleed DVTp: SCDs Code Status: full HCP: sonDaryl
[2017-06-01] MEDS ORDERED: NS 0.9% 1000 ML* 1,000 ML IV SCH (02:45)
[2017-06-01] MEDS ORDERED: Pantoprazole IV* 40 MG IV ONE (03:08)
[2017-06-01] MEDS ORDERED: Pantoprazole IV* 80 MG in NS 0.9% 250 ML* 250 ML IVPB SCH (04:00)
--- NOTE | 2017-06-01 07:31 | RAD ---
INDICATION: Weakness. COMPARISON: Comparison is made with a prior study from May 17, 2017. TECHNIQUE: A portable view of the chest was obtained. FINDINGS: The heart is within normal limits in size for this portable exam. There is a transvenous pacemaker. The patient appears to be status post aortic valve surgery. The lungs are slightly underinflated and clear. No pleural effusion is seen. IMPRESSION: POSTSURGICAL CHANGES, NO EVIDENCE FOR ACUTE FINDING.
--- NOTE | 2017-06-01 07:45 | RAD ---
INDICATION: Hematoma. COMPARISON: Comparison is made with a prior CT of the abdomen and pelvis from March 17, 2008. TECHNIQUE: A CT scan of the abdomen and pelvis was performed without intravenous or oral contrast. Contiguous axial sections were obtained from the lung bases through the symphysis pubis. Images were reconstructed in the coronal and sagittal planes. FINDINGS: There are small infiltrates present at the lung bases within the right middle lobe and lingula. There is a trace left pleural effusion. There appears to be a trace pericardial effusion. The patient is status post aortic valve surgery. The liver and spleen are normal in size without significant focal abnormality on this noncontrast study. The patient appears to be status post cholecystectomy. The pancreas is not well defined on this noncontrast study. There are bilateral adrenal masses measuring 2.0 x 2.2 cm on the right and 1.5 x 1.0 cm on the left. These are low in density and unchanged significantly from the prior exam most consistent with benign adenomas. The kidneys are normal in size. There is bilateral mild dilatation of the renal calyces and pelvises which is appears similar to the prior exam suggestive of mild chronic ureteropelvic junction obstructions. No ureteral or bladder calculi are noted. The aorta is normal in caliber with severe calcific plaque present. No significant enlarged retroperitoneal lymph nodes are seen. The patient appears to be status post gastric bypass surgery although this is not well-defined on this noncontrast study. There is a small hiatal hernia. The stomach, small and large bowel appear nondistended. The patient is status post appendectomy by history. There is a moderate to large amount retained stool. There is no evidence for diverticulitis or colitis. The patient is status post hysterectomy. No free intraperitoneal air or fluid is seen. No significant focal osseous abnormality is seen. IMPRESSION: 1. TRACE LEFT PLEURAL EFFUSION AND TRACE PERICARDIAL EFFUSION. 2. SMALL FILTRATES IN THE RIGHT MIDDLE LOBE AND LINGULA. 3. MILD BILATERAL CHRONIC HYDRONEPHROSIS SUGGESTIVE OF MILD CHRONIC URETEROPELVIC JUNCTION OBSTRUCTIONS WHICH IS UNCHANGED FROM THE PRIOR STUDY. 4. STABLE BILATERAL ADRENAL MASSES. 4. STATUS POST GASTRIC BYPASS SURGERY, CHOLECYSTECTOMY, APPENDECTOMY AND HYSTERECTOMY.
[2017-06-01] MEDS ORDERED: Pantoprazole IV* 40 MG IV SCH (09:00)
[2017-06-01 09:57] LABS: Hematocrit 32 % (35-47); Hemoglobin 10.6 g/dl (12.0-16.0); Mean Corpuscular HGB Conc 33 g/dl (31-36); Mean Corpuscular Hemoglobin 30 pg (27-31); Mean Corpuscular Volume 90 fL (80-97); Mean Platelet Volume 8.4 um3 (7.4-10.4); Platelet Count 152 10^3/ul (150-450); Red Blood Count 3.53 10^6/ul (4.0-5.4); Red Cell Distribution Width 19 % (10.5-15); White Blood Count 9.1 10^3/ul (3.5-10.8)
[2017-06-01 10:14] LABS: EGFR Non-African American 35.5 (>60)
[2017-06-01 12:42] LABS: Hematocrit 32 % (35-47); Hemoglobin 10.8 g/dl (12.0-16.0)
[2017-06-01 13:29] VITALS: BP 148/48
--- NOTE | 2017-06-02 00:37 | DS ---
CC: Vanesa Alexandra NP; Dr. Broderick * DISCHARGE SUMMARY: DATE OF ADMISSION: 06/01/17 DATE OF DISCHARGE: 06/01/17 HISTORY OF PRESENT ILLNESS: This 77-year-old woman came in complaining of weakness. She has a long history of anemia followed by Dr. Broderick. She states she had a transfusion about a year ago. There is no record in our system of this. The patient was found to be significantly more anemic than in the recent past. She denied any signs of bleeding. Her hemoglobin on admission was 7.6. On 05/17, it was 9.3. She received 2 units of packed cells on the day of discharge. Her hemoglobin was 10.8. She felt much better after this transfusion. She had no complaints and was essentially at her baseline. FINAL DIAGNOSES: 1. Chronic anemia. 2. Peptic ulcer disease. 3. Status post transcatheter aortic valve replacement. 4. Coronary artery disease. 5. Diabetes with retinopathy. 6. Chronic obstructive pulmonary disease. 7. Rheumatoid arthritis. 8. Hypothyroidism. MEDICATIONS ON DISCHARGE: 1. Ferrous sulfate 325 mg daily. 2. Levothyroxine 25 mcg daily. 3. Simvastatin 40 mg daily. 4. Cyanocobalamin 500 mg b.i.d. 5. Nitroglycerin 0.4 mg sublingual every 5 minutes p.r.n.. 6. Carvedilol 12.5 mg b.i.d. 7. Hydroxychloroquine 400 mg daily. 8. Albuterol 2.5 mg inhalation 4 times daily p.r.n. 9. Insulin 70/30, 5 units every evening, 10 units every morning. 10. Lisinopril 2.5 mg daily. 11. Calcium carbonate 1000 mg b.i.d. 12. Guaifenesin ER 600 mg daily. 13. Aspirin 81 mg daily. 14. pantoprazole 40 mg daily. 15. Multivitamin with minerals one tab b.i.d. 16. Lomotil one every day p.r.n. 17. Acetaminophen 650 mg every 4 hours p.r.n. [id number]/[facility] #: [id number] MTDD
== END 2017-06-01 15:00 | disposition home or self-care (01) ==
LOC: ED 20:49 → MED 06-01 02:01
PROVIDERS: ADMIT Hospitalist; ATTEND Internal Medicine
DX: D64.9 Anemia, unspecified (principal); K27.9 Peptic ulcer, site unspecified, unspecified as acute or chronic, without hemorrhage or perforation; Z95.2 Presence of prosthetic heart valve; I25.10 Atherosclerotic heart disease of native coronary artery without angina pectoris; R42 Dizziness and giddiness; E11.319 Type 2 diabetes mellitus with unspecified diabetic retinopathy without macular edema; M06.9 Rheumatoid arthritis, unspecified; E03.9 Hypothyroidism, unspecified; R53.1 Weakness; J44.9 Chronic obstructive pulmonary disease, unspecified; Z79.01 Long term (current) use of anticoagulants; H53.8 Other visual disturbances; Z87.891 Personal history of nicotine dependence; N39.0 Urinary tract infection, site not specified
CPT/HCPCS: 36415; 36430; 71045; 74176; 80048; 80053; 81003; 81015; 82270; 83036; 83605; 84484; 85014; 85018; 85025; 85027; 85610; 85730; 86140; 86850; 86900; 86901; 86922; 87040; 87077; 87086; 87186; 93005; 96365; 96375; 99285; G0378; P9040

== ENCOUNTER 2017-06-29 17:58 | Inpatient (IN) | payer MEDICARE, MEDICAID ==
[2017-06-29 19:13] LABS: ABS Basophils 0 10^3/ul (0-0.2); ABS Eosinophils 0.3 10^3/ul (0-0.6); ABS Monocytes 0.4 10^3/ul (0-0.8); ABS Neutrophils 12.5 10^3/ul (1.5-7.7); ABS Nucleated RBC 0 10^3/ul; Hematocrit 32 % (35-47); Hemoglobin 10.8 g/dl (12.0-16.0); Lymphocyte % 6.8 % (25-47); Mean Corpuscular HGB Conc 33 g/dl (31-36); Mean Corpuscular Hemoglobin 30 pg (27-31); Mean Corpuscular Volume 91 fL (80-97); Mean Platelet Volume 8.9 um3 (7.4-10.4); Nucleated Red Blood Cells % 0; Platelet Count 154 10^3/ul (150-450); Red Blood Count 3.56 10^6/ul (4.0-5.4); Red Cell Distribution Width 16 % (10.5-15); White Blood Count 14.2 10^3/ul (3.5-10.8)
[2017-06-29] MEDS ORDERED: Albuterol/Ipratropium NEB.SOL* Albuterol 2.5 MG/Ipratropium 0.5 MG 3 ML INH ONE (19:25)
[2017-06-29 19:34] LABS: EGFR Non-African American 45.2 (>60)
--- NOTE | 2017-06-29 19:42 | ED ---
Shortness of Breath - HPI Summary HPI Summary: Complains of intermittent CP, SOB, weakness, chills, increase in chronic cough, starting this a.m. Denies sore throat, abdominal pain, change in urine or BM, blood in stool. Just finished a course of antibiotics for UTI. Medical history is anemia, COPD, CAD, DM, HLD, CHF, GI bleed, hypo-magnesium, aortic valve replacement. No home O2. - History of Current Complaint Chief Complaint: EDWeakness Time Seen by Provider: 06/29/17 19:09 Hx Obtained From: Patient Onset/Duration: Sudden Onset, Lasting Hours Timing: Constant Current Severity: Moderate Dyspnea At: Exertion Associated Signs & Symptoms: Cough (Productive), Chest Pain w/Cough, Chills - Allergy/Home Medications Allergies/Adverse Reactions: Allergies Allergy/AdvReac Type Severity Reaction Status Date / Time codeine Allergy Rash Verified 05/31/17 20:58 levofloxacin [From Levaquin] Allergy Agitation Verified 05/31/17 20:58 Sulfa (Sulfonamide Allergy Hives Verified 05/31/17 20:58 Antibiotics) PMH/Surg Hx/FS Hx/Imm Hx Endocrine/Hematology History: Reports: Hx Anticoagulant Therapy, Hx Blood Transfusions, Hx Diabetes, Hx Thyroid Disease, Hx Anemia, 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 Denies: Hx Systemic Lupus Erythematosus Cardiovascular History: Reports: Hx Angina, Hx Auto Implanted Cardiovert Defib, Hx Congestive Heart Failure, Hx Coronary Artery Disease, Hx Deep Vein Thrombosis - Man-made clot caused by nurse 40+ years ago, Hx Hypercholesterolemia, Hx Hypertension, Hx Pacemaker/ICD, Hx Valvular Heart Disease, Other Cardiovascular Problems/Disorders - Aortic valve replacement, bradycardia, cardiac catherization Denies: Hx Myocardial Infarction, Hx Rheumatic Fever, Hx Syncope Respiratory History: Reports: Hx Asthma, Hx Chronic Obstructive Pulmonary Disease (COPD), Hx Pneumonia Denies: Hx Lung Cancer, Hx Sleep Apnea GI History: Reports: Hx Ulcer - Peptic ulcer disease, Other GI Disorders - gastric bypass Denies: Hx Gastroesophageal Reflux Disease History: Reports: Other Problems/Disorders - UTIs, CKD Denies: Hx Kidney Stones, Hx Renal Disease Musculoskeletal History: Reports: Hx Arthritis, Hx Rheumatoid Arthritis, Hx Back Problems, Hx Osteoporosis Denies: Hx Gout, Hx Orthopedic Injury Sensory History: Reports: Hx Cataracts, Hx Contacts or Glasses, Other Sensory Impairments - Retinoplasty Denies: Hx Hearing Aid, Hx Hearing Problem Opthamlomology History: Reports: Hx Cataracts, Hx Contacts or Glasses, Other Sensory Impairments - Retinoplasty Neurological History: Denies: Hx Dementia, Hx Developmental Delay, Hx Headaches, Hx Migraine, Hx Nerve Disease, Hx Seizures, Hx Spinal Cord Injury, Hx Transient Ischemic Attacks (TIA), Other Neuro Impairments/Disorders Psychiatric History: Reports: Hx Depression - Cancer History Cancer Type, Location and Year: Two sisters had breast cancer - Surgical History Surgery Procedure, Year, and Place: Hysterectomy. Appendectomy. Tonsillectomy. Bilateral Knee Arthroscopy. Diabetic Retinopathy-eye surgery. Bilateral Cataract removal. Sinus Surgery. Florentin-en-y gastric bypass, 2007. Cholecystecomy 2009. Carpal Tunnel Surgery. Aortic Valve replacement, 2016, [facility] Hx Anesthesia Reactions: No - Immunization History Date of Tetanus Vaccine: utd Date of Influenza Vaccine: utd Infectious Disease History: No Infectious Disease History: Reports: Hx Clostridium Difficile Denies: Hx Hepatitis, Hx Human Immunodeficiency Virus (HIV), Hx of Known/ Suspected MRSA, Hx Shingles, Hx Tuberculosis, Hx Known/Suspected VRE, Hx Known/ Suspected VRSA, History Other Infectious Disease, Traveled Outside the [place] in Last 30 Days - Family History Known Family History: Positive: None, Cardiac Disease, Diabetes, Other - Breast Cancer - Social History Alcohol Use: Rare Hx Substance Use: No Substance Use Type: Reports: None Hx Tobacco Use: Yes - quit > 20 yrs ago Smoking Status (MU): Former Smoker Type: Cigarettes Have You Smoked in the Last Year: No Review of Systems Positive: Chills Eyes: Negative Positive: Chest Pain Positive: Shortness Of Breath Gastrointestinal: Negative Genitourinary: Negative Musculoskeletal: Negative Skin: Negative Neurological: Negative Psychological: Normal All Other Systems Reviewed And Are Negative: Yes Physical Exam - Summary Physical Exam Summary: Bilateral wheeze. Abdomen soft nontender. No peripheral edema. Triage Information Reviewed: Yes Vital Signs On Initial Exam: Initial Vitals Temp Pulse Resp BP Pulse Ox 98.7 F 70 20 166/54 88 06/29/17 18:03 06/29/17 18:03 06/29/17 18:03 06/29/17 18:03 06/29/17 18:03 Vital Signs Reviewed: Yes Appearance: Positive: Well-Appearing Skin: Positive: Warm Head/Face: Positive: Normal Head/Face Inspection Eyes: Positive: Normal Neck: Positive: Supple Respiratory/Lung Sounds: Positive: Wheezes Cardiovascular: Positive: Normal Abdomen Description: Positive: Nontender Musculoskeletal: Positive: Normal Neurological: Positive: Normal Psychiatric: Positive: Normal AVPU Assessment: Alert - Coker Coma Scale Best Eye Response: 4 - Spontaneous Best Motor Response: 6 - Obeys Commands Best Verbal Response: 5 - Oriented Coma Scale Total: 15 Diagnostics - Vital Signs Vital Signs Temp Pulse Resp BP Pulse Ox 06/29/17 19:00 24 06/29/17 18:38 61 21 124/76 88 06/29/17 18:17 19 06/29/17 18:03 98.7 F 70 20 166/54 88 - Laboratory Lab Results: Lab Results 06/29/17 06/29/17 06/29/17 Range/Units 18:17 19:03 19:03 WBC 14.2 H (3.5-10.8) 10^3/ul RBC 3.56 L (4.0-5.4) 10^6/ul Hgb 10.8 L (12.0-16.0) g/dl Hct 32 L (35-47) % MCV 91 (80-97) fL MCH 30 (27-31) pg MCHC 33 (31-36) g/dl RDW 16 H (10.5-15) % Plt Count 154 (150-450) 10^3/ul MPV 8.9 (7.4-10.4) um3 Neut % (Auto) 87.9 H (38-83) % Lymph % (Auto) 6.8 L (25-47) % Perkins % (Auto) 3.0 (0-7) % Eos % (Auto) 2.0 (0-6) % Baso % (Auto) 0.3 (0-2) % Absolute Neuts (auto) 12.5 H (1.5-7.7) 10^3/ul Absolute Lymphs (auto) 1.0 (1.0-4.8) 10^3/ul Absolute Monos (auto) 0.4 (0-0.8) 10^3/ul Absolute Eos (auto) 0.3 (0-0.6) 10^3/ul Absolute Basos (auto) 0 (0-0.2) 10^3/ul Absolute Nucleated RBC 0 10^3/ul Nucleated RBC % 0 POC Glucose (mg/dL) 112 H (70-100) mg/dL Blood Type O Positive Antibody Screen Pending Result Diagrams: 06/29/17 19:03 06/29/17 19:03 Lab Statement: Any lab studies that have been ordered have been reviewed, and results considered in the medical decision making process. - Radiology cxr Xray Interpretation: Positive (See Comments) - Small infiltrate right lung base , COPD Radiology Interpretation Completed By: Radiologist - EKG 1 Cardiac Rate: NL EKG Rhythm: Sinus Rhythm ST Segment: Non-Specific - LBBB, or early repolarization Ectopy: None Course/Dx - Course Course Of Treatment: Admitted for 2 days 06/01/17 for blood transfusion. meets HCAP criteria - Diagnoses Provider Diagnoses: Pneumonia, Hypoxia, Weakness - Physician Notifications Discussed Care of Patient With: Cami Page - will admit Time Discussed With Above Provider: 20:22 Instructed by Provider To: Admit As Inpatient Discharge - Sign-Out/Discharge Documenting (check all that apply): Discharge/Admit/Transfer - Discharge Plan Condition: Fair Disposition: ADMITTED TO [facility] Referrals: Vanesa Alexandra WARP HAULER [Primary Care Provider] - - Billing Disposition and Condition Condition: FAIR Disposition: [facility] [place]
--- NOTE | 2017-06-29 19:45 | RAD ---
Indication: Cough, weakness. Cardiac disease and chronic obstructive pulmonary disease. Post aortic valve replacement. Comparison: June 01, 2017 CT abdomen. May 31, 2017 chest radiograph. Technique: Upright AP 1934 hours Report: Elevated lung volumes and both diffuse mild prominence of the interstitial markings and patchy rarefaction of the mid to upper lung zone interstitial markings. Small focus of airspace consolidation at the RIGHT lung base new compared with the prior exam suspicious for pneumonia given the clinical context. Negative for pleural effusion or pneumothorax. RIGHT atrial and RIGHT ventricular level pacemaker leads. Prosthetic aortic valve. Top normal heart size. Unremarkable central pulmonary vasculature and mediastinal contours. IMPRESSION: 1. Small inflammatory infiltrate at the RIGHT lung base. 2. Stigmata of advanced chronic obstructive pulmonary disease. 3. No compelling evidence for pulmonary edema.
[2017-06-29] MEDS ORDERED: methylPREDNISolone 125 MG* 2 ML VIAL IV ONE (20:11)
[2017-06-29] MEDS ORDERED: Cefepime(*) 2 GM in NS 0.9% 50 ML* 50 ML IVPB ONE (20:16)
[2017-06-29] MEDS ORDERED: Azithromycin IV(*) 500 MG in NS 0.9% 250 ML* 250 ML IVPB ONE (20:17)
[2017-06-29] MEDS ORDERED: NS 0.9% 250 ML* 250 ML ONE (20:36)
[2017-06-29] MEDS ORDERED: NS 0.9% 50 ML* 50 ML ONE (20:36)
[2017-06-29] MEDS ORDERED: Cefepime 2 GM in Dextrose(*) 2 GM/50 ML BAG IV ONE (21:00)
[2017-06-29] MEDS ORDERED: Ondansetron INJ* 2 MG/ML VIAL IV PRN (21:27)
[2017-06-29] MEDS ORDERED: Al Hydrox/Mg Hydrox/Simet LIQ* 30 ML UDC PO PRN (21:27)
[2017-06-29] MEDS ORDERED: Acetaminophen TAB* 325 MG PO PRN (21:27)
[2017-06-29] MEDS ORDERED: Albuterol 2.5 MG/3 ML NEB.SOL* (0.083%) INH PRN (21:41)
[2017-06-29] MEDS ORDERED: Dextrose 50% Syringe 50 ML* 25 GM/50 ML SYRINGE IV PUSH PRN (21:49)
[2017-06-29 22:35] LABS: Urine Appearance Clear; Urine Blood 2+ (Negative); Urine Color Yellow; Urine Ketones Negative (Negative); Urine Protein 2+(100 mg/dL) (Negative); Urine Specific Gravity 1.011 (1.010-1.030); Urine Urobilinogen Negative (Negative)
[2017-06-30] MEDS: Heparin VIAL(*) 5000 UNITS/ML VIAL (FIVE THOUSAND) SUBCUT SCH ×4 (00:24→20:17)
[2017-06-30] MEDS: Levothyroxine TAB* 25 MCG TAB PO SCH (05:41)
[2017-06-30 06:31] LABS: ABS Basophils 0 10^3/ul (0-0.2); ABS Eosinophils 0 10^3/ul (0-0.6); ABS Lymphocytes 0.6 10^3/ul (1.0-4.8); ABS Monocytes 0.2 10^3/ul (0-0.8); ABS Neutrophils 16.7 10^3/ul (1.5-7.7); ABS Nucleated RBC 0 10^3/ul; Eosinophil % 0 % (0-6); Hematocrit 29 % (35-47); Hemoglobin 9.7 g/dl (12.0-16.0); Lymphocyte % 3.5 % (25-47); Mean Corpuscular HGB Conc 33 g/dl (31-36); Mean Corpuscular Hemoglobin 30 pg (27-31); Mean Corpuscular Volume 91 fL (80-97); Mean Platelet Volume 9.5 um3 (7.4-10.4); Nucleated Red Blood Cells % 0; Platelet Count 118 10^3/ul (150-450); Red Cell Distribution Width 17 % (10.5-15); White Blood Count 17.6 10^3/ul (3.5-10.8)
[2017-06-30 06:48] LABS: EGFR Non-African American 38.6 (>60)
--- NOTE | 2017-06-30 07:08 | HP ---
CC: Vanesa Alexandra NP * HISTORY AND PHYSICAL: DATE OF ADMISSION: 06/29/17 PRIMARY CARE PHYSICIAN: Vanesa Alexandra NP TIME OF EVALUATION: 2100. CHIEF COMPLAINT: Weakness and shortness of breath. HISTORY OF PRESENT ILLNESS: This is a 77-year-old female with a past medical history of anemia of chronic disease, coronary artery disease, and COPD, who presents to the emergency room with weakness and shortness of breath. The son is at the bedside. He states she was fine yesterday. She went to go see the doctor, she was out shopping and today around 7 a.m. this this morning she was began feeling short of breath, weak, with a mild cough. She did have some nausea and chest pain as well as shortness of breath. She has also been having right shoulder pain, which she attributes her rheumatoid arthritis. No abdominal pain. She did have some loose stools earlier today. No urinary symptoms. No fevers or chills. She does state that she coughs and chokes on food about 1 time a day. Her weight fluctuates. No melena or bright red blood per rectum. Otherwise, review of systems is negative. In the emergency room, the patient had labs and imaging. She was found to be hypoxic requiring oxygen and have pneumonia and was given DuoNeb, azithromycin, cefepime, Solu-Medrol, and referred to the hospital service for further evaluation. PAST MEDICAL HISTORY: 1. History of TAVR in 2005. 2. Coronary artery disease. 3. Polyclonal hypergammaglobulinemia. 4. Diabetes with retinopathy. 5. Chronic atrial fibrillation, not on anticoagulation. 6. COPD, on room air. 7. Anemia of chronic disease. 8. Severe peptic ulcer disease. 9. CKD stage 3 to 4. 10. Rheumatoid arthritis. 11. Hypothyroidism. 12. Hypertension. 13. Hyperlipidemia. 14. History of pacemaker placement. MEDICATIONS: She states have been unchanged since her discharge. She was on a round of antibiotics for UTI about a week ago. 1. Ferrous sulfate 325 mg p.o. daily. 2. Levothyroxine 25 mcg p.o. daily. 3. Simvastatin 40 mg p.o. daily. 4. Cyanocobalamin 500 mg p.o. b.i.d. 5. Nitroglycerin 0.4 mg sublingual every 5 minutes as needed. 6. Carvedilol 12.5 mg p.o. b.i.d. 7. Hydroxychloroquine 400 mg p.o. daily. 8. Albuterol neb 4 times a day as needed. 9. Insulin 70/30 five units every evening, and 10 units every morning; however , the patient states she has limited her insulin and has cut down quite significantly. She goes to bed with glucose of 400, takes 2 units and wakes up with a glucose of 70. Her blood glucose significantly drops at night and only takes 1 to 2 in the morning. 10. Lisinopril 2.5 mg p.o. daily. 11. Calcium carbonate 1000 mg p.o. b.i.d. 12. Guaifenesin ER 600 mg daily. 13. Aspirin 81 mg daily. 14. Pantoprazole 40 mg daily. 15. Multivitamin 1 tab b.i.d. 16. Lomotil daily as needed. 17. Tylenol 650 mg every 4 hours as needed. ALLERGIES: CODEINE, LEVOFLOXACIN, and SULFA. SOCIAL HISTORY: She lives at home with her son, Eliud Carter, is her healthcare proxy. She uses a walker at home. When she goes out, she uses a wheelchair. She quit smoking 40 years ago. No alcohol or illicit drug use. Her code status was reviewed and she wishes to be a full code. FAMILY HISTORY: Her mother in her 80s from coronary artery disease. Her father in the 70s from coronary artery disease. REVIEW OF SYSTEMS: A 14-point review of systems as mentioned in the HPI, otherwise, negative. PHYSICAL EXAMINATION GENERAL: Frail, pale, elderly female, in no acute distress with her son at the bedside. VITAL SIGNS: Temp 98.7, pulse rate 65, respiratory rate 20, oxygen saturation 96% on 2 L, blood pressure 124/76. HEENT: Head: Normocephalic. Pupils are equal and reactive, anicteric. Oropharynx: Mucous membranes are moist. NECK: Supple. No lymphadenopathy. RESPIRATORY: Diminished breath sounds, rhonchi on the right side with bilateral expiratory wheezes. No increased work of breathing or retractions. CARDIAC: Regular rate and rhythm. Soft systolic murmur heard throughout. ABDOMEN: Soft, nontender, and nondistended. EXTREMITIES: No clubbing, cyanosis, or edema, +1 DPs. NEUROLOGICAL: Alert and oriented x3. DERM: She does have some mild skin tears on her lower extremities bilaterally. DIAGNOSTIC STUDIES/LABORATORY DATA: White count 14.2, hemoglobin 10.8, hematocrit 32, platelets 154. INR is 1. ABGs: pH 7.39, CO2 35, pO2 44 on room air. Sodium 139, potassium 4.5, chloride 108, bicarb 21, BUN 47, creatinine 1.16, glucose 116, CRP is 312. Radiographic Data: Chest x-ray: Small inflammatory infiltrate at the right lung base, stigmata of advanced COPD. No compelling evidence for pulmonary edema. EKG shows AV paced. Chest x-ray: Inflammatory infiltrate at the right lung base. Stigmata of advanced COPD. ASSESSMENT AND PLAN: This is a 77-year-old female with past medical history of chronic obstructive pulmonary disease, chronic kidney disease, and anemia who presents to the emergency room with weakness and shortness of breath and found to have a pneumonia. 1. Weakness and shortness of breath. Assessment: The patient with findings consistent with pneumonia. She was hospitalized a month ago; however, there is also concern for possibility of aspiration pneumonia with this acute onset and otherwise feeling fine yesterday that she clearly has an infiltrate in the right lower lobe. Plan: We will continue her on cefepime. I am going to put in for Speech Therapy to evaluate her swallowing function. I will repeat her blood work in the morning and obtain a sputum culture. I do think there is a component of chronic obstructive pulmonary disease exacerbation as well. Will continue albuterol nebs. Will hold off on prednisone until she is re-evaluated. With her high risk GI bleeding and chronic anemia that appears require frequent transfusions, will hold the prednisone. I discussed that she may need to go home with oxygen and this may be a permanent change for her, which she is ammendable to. 2. Chronic medical problems. Chronic obstructive pulmonary disease as above. We will hold off any further steroids and reassess in the morning with her high risk of bleeding and her chronic anemia, worry that the prednisone will trigger another gastrointestinal bleeding event. 3. Diabetes. It appears the patient's labile blood sugars with hypoglycemia has not been requiring very much insulin at all. I am going to check a hemoglobin A1c and just place her on lispro sliding scale. I think that she may need to be off subcu insulin altogether considering an oral agent or stopping antihyperglycemic agents all together. 4. Hypothyroidism. Continue her Synthroid. 5. Anemia. Continue ferrous sulfate. 6. Hyperlipidemia. Hold simvastatin. We do not have this in formulary. 7. Coronary artery disease. Continue carvedilol. 8. Peptic ulcer disease and history of gastrointestinal bleed. We will switch her to omeprazole b.i.d. in place of her pantoprazole. 9. FEN: We will place the patient on a heart-healthy diet. 10. DVT prophylaxis: The patient scores high risk. No evidence of bleeding currently. We will place her on heparin subcu t.i.d. and monitor this closely. 11. Code status is a full code. PATIENT TIME: Greater than 50 minutes spent doing the history and physical, more than half time was spent in direct patient contact. [id number]/CPS #: [id number] CESAR
[2017-06-30] MEDS ORDERED: predniSONE TAB* 20 MG PO SCH (09:00)
[2017-06-30] MEDS: Cefepime 1 GM in Dextrose(*) 1 GM/50 ML BAG IV SCH ×2 (09:46→21:41)
[2017-06-30] MEDS: Insulin LISPRO* 1 UNITS UNIT SUBCUT SCH ×5 (09:48→18:24)
[2017-06-30] MEDS: Lisinopril TAB* 5 MG PO SCH (09:49)
[2017-06-30] MEDS: guaiFENesin ER TAB 600 MG PO SCH (09:50)
[2017-06-30] MEDS: Ferrous Sulfate TAB* 325 MG PO SCH (09:50)
[2017-06-30] MEDS: Hydroxychloroquine TAB* 200 MG PO SCH (09:50)
[2017-06-30] MEDS: Carvedilol TAB* 6.25 MG PO SCH ×2 (09:50→20:08)
[2017-06-30] MEDS: Omeprazole CAP* 20 MG PO SCH ×2 (09:50→20:08)
[2017-06-30] MEDS: Cyanocobalamin TAB* 500 MCG PO SCH ×2 (09:50→20:08)
[2017-06-30] MEDS: Aspirin EC TAB* 81 MG TAB.EC PO SCH (09:50)
--- NOTE | 2017-06-30 16:21 | PN ---
Subjective Date of Service: 06/30/17 Interval History: HOSPITALIST PROGRESS NOTE Patient seen and examined at bedside. Care reviewed and d/w Darlene Ann RN. She feels a little better today. Still very fatigued, but breathing is easier. Family History: Unchanged from Admission Social History: Unchanged from Admission Past Medical History: Unchanged from Admission Objective Active Medications: Acetaminophen (Tylenol Tab*) 650 mg PO Q4H PRN PRN Reason: FEVER/PAIN Al Hydrox/Mg Hydrox/Simethicone (Maalox Plus*) 30 ml PO Q6H PRN PRN Reason: INDIGESTION Albuterol (Ventolin 2.5 Mg/3 Ml Neb.Rivka*) 2.5 mg INH Q4H PRN PRN Reason: SOB/WHEEZING Aspirin (Aspirin Ec Tab*) 81 mg PO DAILY [facility] Last Admin: 06/30/17 09:50 Dose: 81 mg Carvedilol (Coreg Tab*) 12.5 mg PO BID [facility] Last Admin: 06/30/17 09:50 Dose: 12.5 mg Cyanocobalamin (Vitamin B12 Tab*) 500 mcg PO BID [facility] Last Admin: 06/30/17 09:50 Dose: 500 mcg Dextrose (D50w Syringe 50 Ml*) 12.5 gm IV PUSH .FOR FS < 60 - SS PRN PRN Reason: FS < 60 Diphenoxylate HCl/Atropine (Lomotil Tab*) 1 tab PO DAILY PRN PRN Reason: DIARRHEA Ferrous Sulfate (Ferrous Sulfate Tab*) 325 mg PO DAILY [facility] Last Admin: 06/30/17 09:50 Dose: 325 mg Guaifenesin (Mucinex*) 600 mg PO DAILY [facility] Last Admin: 06/30/17 09:50 Dose: 600 mg Heparin Sodium (Porcine) (Heparin Vial(*)) 5,000 units SUBCUT Q8HR [facility] Last Admin: 06/30/17 13:47 Dose: 5,000 units Hydroxychloroquine Sulfate (Plaquenil Tab*) 400 mg PO DAILY [facility] Last Admin: 06/30/17 09:50 Dose: 400 mg Cefepime HCl (Maxipime 1 Gm In Dextrose Duplex (*)) 1 gm in 50 mls @ 100 mls/ hr IV Q12H [facility] Last Admin: 06/30/17 09:46 Dose: 100 mls/hr Insulin Human Lispro (Humalog*) 0 units SUBCUT AC [facility] PRN Reason: Protocol Last Admin: 06/30/17 13:46 Dose: 5 units Insulin Human Lispro (Humalog*) 0 units SUBCUT AC [facility] PRN Reason: Protocol Last Admin: 06/30/17 13:47 Dose: 5 units Levothyroxine Sodium (Synthroid Tab*) 25 mcg PO 0600 [facility] Last Admin: 06/30/17 05:41 Dose: 25 mcg Lisinopril (Prinivil Tab*) 2.5 mg PO DAILY [facility] Last Admin: 06/30/17 09:49 Dose: 2.5 mg Omeprazole (Prilosec Cap*) 20 mg PO BID [facility] Last Admin: 06/30/17 09:50 Dose: 20 mg Ondansetron HCl (Zofran Inj*) 4 mg IV Q4H PRN PRN Reason: NAUSEA/VOMITING Vital Signs - 8 hr 06/30/17 06/30/17 06/30/17 08:40 11:06 11:08 Temperature 98.1 F Pulse Rate 61 62 63 Respiratory 19 15 Rate Blood Pressure 117/28 110/29 (mmHg) O2 Sat by Pulse 100 100 100 Oximetry Oxygen Devices in Use Now: Nasal Cannula - 2 liters Appearance: Elderly frail lady lying in bed in [employer]. Eyes: No Scleral Icterus Ears/Nose/Mouth/Throat: Mucous Membranes Moist Neck: Trachea Midline Respiratory: Symmetrical Chest Expansion and Respiratory Effort, - - BS+ bilaterally with rhonchi on the right Cardiovascular: RRR - Normal S1 and S2, +SM Abdominal: NL Sounds; No Tenderness; No Distention Extremities: No Edema Neurological: Alert and Oriented x 3 Result Diagrams: 06/30/17 06:09 06/30/17 06:09 Assess/Plan/Problems-Billing Assessment: Mrs. Carter is a 77yo F with a complex PMH that includes CAD, s/p TAVR, polyclonal hypergammaglobulinemia, DM, diabetic retinopathy, chronic Afib not on AC, COPD, anemia of chronic disease, severe PUD, CKD stage 3 to 4, diabetic nephropathy, RA, hypothyroidism, HTN, HLD, s/p pacer, who presented to ED with c /o weakness and dyspnea, found to have pneumonia. - Patient Problems (1) Sepsis Comment: - Presentation compatible with sepsis with leukocytosis and CO2<32. - Source is pneumonia. (2) Pneumonia Comment: - CxR shows a Right lung infiltrate with concerns for aspiration. - Speech pathology evaluation pending. - Continue Cefepime and add Azithromycin. - Influenza was negative. - Check Legionella and pneumococcal Ag. (3) COPD (chronic obstructive pulmonary disease) Comment: - Stable. - Continue bronchodilators. (4) Diabetes Comment: - Very labile. - Continue Lispro SS. (5) DVT prophylaxis Comment: - SQ heparin. (6) Full code status Status and Disposition: Change to inpatient for management of pneumonia.
[2017-06-30] MEDS: Insulin GLARGINE(*) 1 UNITS UNIT SUBCUT SCH (18:23)
[2017-06-30] MEDS ORDERED: Azithromycin IV(*) 500 MG in D5W 250 ML BAG* 250 ML IVPB SCH (20:00)
[2017-07-01] MEDS: Levothyroxine TAB* 25 MCG TAB PO SCH (05:02)
[2017-07-01] MEDS: Heparin VIAL(*) 5000 UNITS/ML VIAL (FIVE THOUSAND) SUBCUT SCH ×3 (05:03→21:17)
[2017-07-01 06:49] LABS: ABS Basophils 0 10^3/ul (0-0.2); ABS Eosinophils 0 10^3/ul (0-0.6); ABS Monocytes 0.6 10^3/ul (0-0.8); ABS Neutrophils 13.8 10^3/ul (1.5-7.7); ABS Nucleated RBC 0 10^3/ul; Eosinophil % 0.2 % (0-6); Hematocrit 25 % (35-47); Hemoglobin 8.4 g/dl (12.0-16.0); Lymphocyte % 6.7 % (25-47); Mean Corpuscular HGB Conc 34 g/dl (31-36); Mean Corpuscular Hemoglobin 31 pg (27-31); Mean Corpuscular Volume 92 fL (80-97); Mean Platelet Volume 9.3 um3 (7.4-10.4); Nucleated Red Blood Cells % 0; Platelet Count 115 10^3/ul (150-450); Red Blood Count 2.71 10^6/ul (4.0-5.4); Red Cell Distribution Width 16 % (10.5-15); White Blood Count 15.5 10^3/ul (3.5-10.8)
[2017-07-01 07:10] LABS: EGFR Non-African American 37.3 (>60)
[2017-07-01] MEDS: Aspirin EC TAB* 81 MG TAB.EC PO SCH (07:51)
[2017-07-01] MEDS: guaiFENesin ER TAB 600 MG PO SCH (07:51)
[2017-07-01] MEDS: Cyanocobalamin TAB* 500 MCG PO SCH ×2 (07:51→20:03)
[2017-07-01] MEDS: Hydroxychloroquine TAB* 200 MG PO SCH (07:51)
[2017-07-01] MEDS: Lisinopril TAB* 5 MG PO SCH (07:51)
[2017-07-01] MEDS: Ferrous Sulfate TAB* 325 MG PO SCH (07:51)
[2017-07-01] MEDS: Carvedilol TAB* 6.25 MG PO SCH ×2 (07:52→21:17)
[2017-07-01] MEDS: Omeprazole CAP* 20 MG PO SCH ×2 (07:52→20:02)
[2017-07-01] MEDS ORDERED: Azithromycin IV(*) 500 MG in D5W 250 ML BAG* 250 ML IVPB SCH (08:00)
[2017-07-01] MEDS: Cefepime 1 GM in Dextrose(*) 1 GM/50 ML BAG IV SCH (08:01)
[2017-07-01] MEDS: Insulin LISPRO* 1 UNITS UNIT SUBCUT SCH ×6 (09:21→17:57)
[2017-07-01] MEDS: cefTRIAXone(*) 1 GM in NS 0.9% 50 ML* 50 ML IVPB SCH (09:33)
--- NOTE | 2017-07-01 14:33 | PN ---
Subjective Date of Service: 07/01/17 Interval History: HOSPITALIST PROGRESS NOTE Patient seen and examined at bedside. She feels a little better today. Dyspnea is less intense, feels well on RA. Cough continues. Family History: Unchanged from Admission Social History: Unchanged from Admission Past Medical History: Unchanged from Admission Objective Active Medications: Acetaminophen (Tylenol Tab*) 650 mg PO Q4H PRN PRN Reason: FEVER/PAIN Al Hydrox/Mg Hydrox/Simethicone (Maalox Plus*) 30 ml PO Q6H PRN PRN Reason: INDIGESTION Albuterol (Ventolin 2.5 Mg/3 Ml Neb.Rivka*) 2.5 mg INH Q4H PRN PRN Reason: SOB/WHEEZING Aspirin (Aspirin Ec Tab*) 81 mg PO DAILY [facility] Last Admin: 07/01/17 07:51 Dose: 81 mg Carvedilol (Coreg Tab*) 12.5 mg PO BID [facility] Last Admin: 07/01/17 07:52 Dose: 12.5 mg Cyanocobalamin (Vitamin B12 Tab*) 500 mcg PO BID [facility] Last Admin: 07/01/17 07:51 Dose: 500 mcg Dextrose (D50w Syringe 50 Ml*) 12.5 gm IV PUSH .FOR FS < 60 - SS PRN PRN Reason: FS < 60 Diphenoxylate HCl/Atropine (Lomotil Tab*) 1 tab PO DAILY PRN PRN Reason: DIARRHEA Ferrous Sulfate (Ferrous Sulfate Tab*) 325 mg PO DAILY [facility] Last Admin: 07/01/17 07:51 Dose: 325 mg Guaifenesin (Mucinex*) 600 mg PO DAILY [facility] Last Admin: 07/01/17 07:51 Dose: 600 mg Heparin Sodium (Porcine) (Heparin Vial(*)) 5,000 units SUBCUT Q8HR [facility] Last Admin: 07/01/17 13:09 Dose: 5,000 units Hydroxychloroquine Sulfate (Plaquenil Tab*) 400 mg PO DAILY [facility] Last Admin: 07/01/17 07:51 Dose: 400 mg Azithromycin 500 mg/ Sodium (Chloride) 250 mls @ 250 mls/hr IVPB Q24H [facility] Ceftriaxone Sodium 1 gm/ (Sodium Chloride) 50 mls @ 200 mls/hr IVPB Q24H [facility] Last Admin: 07/01/17 09:33 Dose: 200 mls/hr Insulin Glargine (Lantus(*)) 5 units SUBCUT Q24H [facility] Last Admin: 06/30/17 18:23 Dose: 5 units Insulin Human Lispro (Humalog*) 0 units SUBCUT AC [facility] PRN Reason: Protocol Last Admin: 07/01/17 13:08 Dose: 4 units Insulin Human Lispro (Humalog*) 0 units SUBCUT AC [facility] PRN Reason: Protocol Last Admin: 07/01/17 13:08 Dose: 4 units Levothyroxine Sodium (Synthroid Tab*) 25 mcg PO 0600 [facility] Last Admin: 07/01/17 05:02 Dose: 25 mcg Lisinopril (Prinivil Tab*) 2.5 mg PO DAILY [facility] Last Admin: 07/01/17 07:51 Dose: 2.5 mg Omeprazole (Prilosec Cap*) 20 mg PO BID [facility] Last Admin: 07/01/17 07:52 Dose: 20 mg Vital Signs - 8 hr 07/01/17 07/01/17 07/01/17 07:35 07:38 08:02 Temperature 97.7 F Pulse Rate 60 64 62 Respiratory 18 14 Rate Blood Pressure 127/35 112/60 (mmHg) O2 Sat by Pulse 100 99 Oximetry 07/01/17 07/01/17 07/01/17 08:05 11:34 11:40 Temperature 97.7 F Pulse Rate 60 Respiratory 18 18 Rate Blood Pressure 109/30 110/62 (mmHg) O2 Sat by Pulse 98 Oximetry Oxygen Devices in Use Now: None Appearance: Elderly frail lady sitting up in a chair in [facility]. Eyes: No Scleral Icterus Ears/Nose/Mouth/Throat: Mucous Membranes Moist Neck: Trachea Midline Respiratory: Symmetrical Chest Expansion and Respiratory Effort, - - BS+ bilaterally with crackles on the right Cardiovascular: RRR - Normal S1 and S2 Neurological: Alert and Oriented x 3, NL Muscle Strength and Tone Result Diagrams: 07/01/17 06:20 07/01/17 06:20 Assess/Plan/Problems-Billing Assessment: Mrs. Carter is a 77yo F with a complex PMH that includes CAD, s/p TAVR, polyclonal hypergammaglobulinemia, DM, diabetic retinopathy, chronic Afib not on AC, COPD, anemia of chronic disease, severe PUD, CKD stage 3 to 4, diabetic nephropathy, RA, hypothyroidism, HTN, HLD, s/p pacer, who presented to ED with c /o weakness and dyspnea, found to have pneumonia. - Patient Problems (1) Sepsis Comment: - Presentation compatible with sepsis with leukocytosis and CO2<32. - Source is pneumonia. (2) Pneumonia Comment: - CxR shows a Right lung infiltrate with concerns for aspiration. - Speech pathology evaluation pending. - Continue Azithromycin and change Cefepime to Ceftriaxone. - Influenza was negative, as well as Legionella and pneumococcal Ag. (3) COPD (chronic obstructive pulmonary disease) Comment: - Stable. - Continue bronchodilators. (4) Diabetes Comment: - Very labile. - Continue Lispro SS and very low dose Lantus. (5) DVT prophylaxis Comment: - SQ heparin. (6) Full code status Status and Disposition: Inpatient for management of pneumonia.
[2017-07-01] MEDS: Insulin GLARGINE(*) 1 UNITS UNIT SUBCUT SCH (17:56)
[2017-07-01] MEDS ORDERED: Azithromycin IV(*) 500 MG in NS 0.9% 250 ML* 250 ML IVPB SCH (20:00)
[2017-07-01] MEDS: Diphenoxylat/Atrop 2.5-0.025M* 1 TAB PO PRN (20:02)
[2017-07-02] MEDS: Levothyroxine TAB* 25 MCG TAB PO SCH (05:46)
[2017-07-02] MEDS: Heparin VIAL(*) 5000 UNITS/ML VIAL (FIVE THOUSAND) SUBCUT SCH ×3 (05:46→21:15)
[2017-07-02] MEDS: Lisinopril TAB* 5 MG PO SCH (07:52)
[2017-07-02] MEDS: Hydroxychloroquine TAB* 200 MG PO SCH (07:52)
[2017-07-02] MEDS: Omeprazole CAP* 20 MG PO SCH ×2 (07:52→20:40)
[2017-07-02] MEDS: Carvedilol TAB* 6.25 MG PO SCH ×2 (07:52→20:40)
[2017-07-02] MEDS: guaiFENesin ER TAB 600 MG PO SCH (07:52)
[2017-07-02] MEDS: Aspirin EC TAB* 81 MG TAB.EC PO SCH (07:52)
[2017-07-02] MEDS: Cyanocobalamin TAB* 500 MCG PO SCH ×2 (07:52→20:40)
[2017-07-02] MEDS: Ferrous Sulfate TAB* 325 MG PO SCH (07:52)
[2017-07-02] MEDS: cefTRIAXone(*) 1 GM in NS 0.9% 50 ML* 50 ML IVPB SCH (08:59)
[2017-07-02] MEDS: Insulin LISPRO* 1 UNITS UNIT SUBCUT SCH ×6 (09:04→18:07)
[2017-07-02] MEDS: Diphenoxylat/Atrop 2.5-0.025M* 1 TAB PO PRN (09:08)
--- NOTE | 2017-07-02 15:09 | PN ---
Subjective Date of Service: 07/02/17 Interval History: HOSPITALIST PROGRESS NOTE Patient seen and examined at bedside. She feels well today. Still weak, but feels she's getting her energy back. Dyspnea is less intense, able to ambulate to the bathroom without O2. Chronic diarrhea is unchanged from home. Family History: Unchanged from Admission Social History: Unchanged from Admission Past Medical History: Unchanged from Admission Objective Active Medications: Acetaminophen (Tylenol Tab*) 650 mg PO Q4H PRN PRN Reason: FEVER/PAIN Al Hydrox/Mg Hydrox/Simethicone (Maalox Plus*) 30 ml PO Q6H PRN PRN Reason: INDIGESTION Albuterol (Ventolin 2.5 Mg/3 Ml Neb.Rivka*) 2.5 mg INH Q4H PRN PRN Reason: SOB/WHEEZING Aspirin (Aspirin Ec Tab*) 81 mg PO DAILY [facility] Last Admin: 07/02/17 07:52 Dose: 81 mg Carvedilol (Coreg Tab*) 12.5 mg PO BID [facility] Last Admin: 07/02/17 07:52 Dose: 12.5 mg Cyanocobalamin (Vitamin B12 Tab*) 500 mcg PO BID [facility] Last Admin: 07/02/17 07:52 Dose: 500 mcg Dextrose (D50w Syringe 50 Ml*) 12.5 gm IV PUSH .FOR FS < 60 - SS PRN PRN Reason: FS < 60 Diphenoxylate HCl/Atropine (Lomotil Tab*) 1 tab PO DAILY PRN PRN Reason: DIARRHEA Last Admin: 07/02/17 09:08 Dose: 1 tab Ferrous Sulfate (Ferrous Sulfate Tab*) 325 mg PO DAILY [facility] Last Admin: 07/02/17 07:52 Dose: 325 mg Guaifenesin (Mucinex*) 600 mg PO DAILY [facility] Last Admin: 07/02/17 07:52 Dose: 600 mg Heparin Sodium (Porcine) (Heparin Vial(*)) 5,000 units SUBCUT Q8HR [facility] Last Admin: 07/02/17 13:45 Dose: 5,000 units Hydroxychloroquine Sulfate (Plaquenil Tab*) 400 mg PO DAILY [facility] Last Admin: 07/02/17 07:52 Dose: 400 mg Azithromycin 500 mg/ Sodium (Chloride) 250 mls @ 250 mls/hr IVPB Q24H [facility] Last Admin: 07/01/17 19:47 Dose: 250 mls/hr Ceftriaxone Sodium 1 gm/ (Sodium Chloride) 50 mls @ 200 mls/hr IVPB Q24H [facility] Last Admin: 07/02/17 08:59 Dose: 200 mls/hr Insulin Glargine (Lantus(*)) 5 units SUBCUT Q24H [facility] Last Admin: 07/01/17 17:56 Dose: 5 units Insulin Human Lispro (Humalog*) 0 units SUBCUT AC [facility] PRN Reason: Protocol Last Admin: 07/02/17 13:44 Dose: 3 units Insulin Human Lispro (Humalog*) 0 units SUBCUT AC [facility] PRN Reason: Protocol Last Admin: 07/02/17 13:45 Dose: 2 units Levothyroxine Sodium (Synthroid Tab*) 25 mcg PO 0600 [facility] Last Admin: 07/02/17 05:46 Dose: 25 mcg Lisinopril (Prinivil Tab*) 2.5 mg PO DAILY [facility] Last Admin: 07/02/17 07:52 Dose: 2.5 mg Omeprazole (Prilosec Cap*) 20 mg PO BID [facility] Last Admin: 07/02/17 07:52 Dose: 20 mg Vital Signs - 8 hr 07/02/17 07/02/17 07/02/17 07:36 07:50 08:04 Temperature 98.1 F 98.1 F Pulse Rate 64 74 Respiratory 18 18 18 Rate Blood Pressure 128/44 118/58 (mmHg) O2 Sat by Pulse 100 96 Oximetry 07/02/17 07/02/17 07/02/17 09:08 09:58 11:32 Temperature Pulse Rate 61 Respiratory 18 18 18 Rate Blood Pressure 130/34 (mmHg) O2 Sat by Pulse 100 Oximetry Oxygen Devices in Use Now: None Appearance: Pleasant frail elderly lady sitting up in a chair in [facility]. Eyes: No Scleral Icterus Ears/Nose/Mouth/Throat: Mucous Membranes Moist Neck: Trachea Midline Respiratory: Symmetrical Chest Expansion and Respiratory Effort, - - BS+ bilaterally with rhonchi on the right Cardiovascular: RRR - Normal S1 and S2 Abdominal: NL Sounds; No Tenderness; No Distention Neurological: Alert and Oriented x 3, NL Muscle Strength and Tone Result Diagrams: 07/01/17 06:20 07/01/17 06:20 Assess/Plan/Problems-Billing Assessment: Mrs. Carter is a 77yo F with a complex PMH that includes CAD, s/p TAVR, polyclonal hypergammaglobulinemia, DM, diabetic retinopathy, chronic Afib not on AC, COPD, anemia of chronic disease, severe PUD, CKD stage 3 to 4, diabetic nephropathy, RA, hypothyroidism, HTN, HLD, s/p pacer, who presented to ED with c /o weakness and dyspnea, found to have pneumonia. - Patient Problems (1) Sepsis Comment: - Presentation compatible with sepsis with leukocytosis and CO2<32. - Source is pneumonia. (2) Pneumonia Comment: - CxR shows a Right lung infiltrate with concerns for aspiration. - Speech pathology evaluation appreciated - mechanical ground solids and thin liquids. - Continue Ceftriaxone and Zithromax. - Influenza was negative, as well as Legionella and pneumococcal Ag. (3) COPD (chronic obstructive pulmonary disease) Comment: - Stable. - Continue bronchodilators. (4) Diabetes Comment: - Very labile. - Continue Lispro SS and very low dose Lantus. (5) DVT prophylaxis Comment: - SQ heparin. (6) Full code status Status and Disposition: Inpatient for management of pneumonia.
[2017-07-02] MEDS: Insulin GLARGINE(*) 1 UNITS UNIT SUBCUT SCH (18:07)
[2017-07-02] MEDS: Azithromycin IV(*) 250 MG in NS 0.9% 250 ML* 250 ML IVPB SCH (19:46)
[2017-07-03] MEDS: Levothyroxine TAB* 25 MCG TAB PO SCH (05:49)
[2017-07-03] MEDS: Heparin VIAL(*) 5000 UNITS/ML VIAL (FIVE THOUSAND) SUBCUT SCH ×3 (05:50→21:25)
[2017-07-03 07:11] LABS: ABS Basophils 0 10^3/ul (0-0.2); ABS Eosinophils 0.3 10^3/ul (0-0.6); ABS Monocytes 0.4 10^3/ul (0-0.8); ABS Neutrophils 6.1 10^3/ul (1.5-7.7); ABS Nucleated RBC 0 10^3/ul; Eosinophil % 3.8 % (0-6); Hematocrit 24 % (35-47); Hemoglobin 8.3 g/dl (12.0-16.0); Lymphocyte % 12.6 % (25-47); Mean Corpuscular HGB Conc 34 g/dl (31-36); Mean Corpuscular Hemoglobin 31 pg (27-31); Mean Corpuscular Volume 91 fL (80-97); Mean Platelet Volume 8.9 um3 (7.4-10.4); Nucleated Red Blood Cells % 0; Platelet Count 104 10^3/ul (150-450); Red Blood Count 2.65 10^6/ul (4.0-5.4); Red Cell Distribution Width 16 % (10.5-15); White Blood Count 7.9 10^3/ul (3.5-10.8)
[2017-07-03] MEDS: Hydroxychloroquine TAB* 200 MG PO SCH (07:34)
[2017-07-03] MEDS: Lisinopril TAB* 5 MG PO SCH (07:34)
[2017-07-03] MEDS: Ferrous Sulfate TAB* 325 MG PO SCH (07:34)
[2017-07-03 07:35] LABS: EGFR Non-African American 51.8 (>60)
[2017-07-03] MEDS: Carvedilol TAB* 6.25 MG PO SCH ×2 (07:35→20:37)
[2017-07-03] MEDS: Omeprazole CAP* 20 MG PO SCH ×2 (07:35→20:37)
[2017-07-03] MEDS: Diphenoxylat/Atrop 2.5-0.025M* 1 TAB PO PRN (07:35)
[2017-07-03] MEDS: Cyanocobalamin TAB* 500 MCG PO SCH ×2 (07:35→20:37)
[2017-07-03] MEDS: guaiFENesin ER TAB 600 MG PO SCH (07:35)
[2017-07-03] MEDS: Aspirin EC TAB* 81 MG TAB.EC PO SCH (07:35)
[2017-07-03] MEDS: Insulin LISPRO* 1 UNITS UNIT SUBCUT SCH ×6 (07:41→17:48)
[2017-07-03] MEDS: cefTRIAXone(*) 1 GM in NS 0.9% 50 ML* 50 ML IVPB SCH (09:43)
--- NOTE | 2017-07-03 13:56 | PN ---
Subjective Date of Service: 07/03/17 Interval History: No cough, SOB improving Able to slowly walk to bathroom using walker Still feeling weak but improving Family History: Unchanged from Admission Social History: Unchanged from Admission Past Medical History: Unchanged from Admission Objective Active Medications: Acetaminophen (Tylenol Tab*) 650 mg PO Q4H PRN PRN Reason: FEVER/PAIN Al Hydrox/Mg Hydrox/Simethicone (Maalox Plus*) 30 ml PO Q6H PRN PRN Reason: INDIGESTION Albuterol (Ventolin 2.5 Mg/3 Ml Neb.Rivka*) 2.5 mg INH Q4H PRN PRN Reason: SOB/WHEEZING Aspirin (Aspirin Ec Tab*) 81 mg PO DAILY [facility] Last Admin: 07/03/17 07:35 Dose: 81 mg Carvedilol (Coreg Tab*) 12.5 mg PO BID [facility] Last Admin: 07/03/17 07:35 Dose: 12.5 mg Cyanocobalamin (Vitamin B12 Tab*) 500 mcg PO BID [facility] Last Admin: 07/03/17 07:35 Dose: 500 mcg Dextrose (D50w Syringe 50 Ml*) 12.5 gm IV PUSH .FOR FS < 60 - SS PRN PRN Reason: FS < 60 Diphenoxylate HCl/Atropine (Lomotil Tab*) 1 tab PO DAILY PRN PRN Reason: DIARRHEA Last Admin: 07/03/17 07:35 Dose: 1 tab Ferrous Sulfate (Ferrous Sulfate Tab*) 325 mg PO DAILY [facility] Last Admin: 07/03/17 07:34 Dose: 325 mg Guaifenesin (Mucinex*) 600 mg PO DAILY [facility] Last Admin: 07/03/17 07:35 Dose: 600 mg Heparin Sodium (Porcine) (Heparin Vial(*)) 5,000 units SUBCUT Q8HR [facility] Last Admin: 07/03/17 13:11 Dose: 5,000 units Hydroxychloroquine Sulfate (Plaquenil Tab*) 400 mg PO DAILY [facility] Last Admin: 07/03/17 07:34 Dose: 400 mg Ceftriaxone Sodium 1 gm/ (Sodium Chloride) 50 mls @ 200 mls/hr IVPB Q24H [facility] Last Admin: 07/03/17 09:43 Dose: 200 mls/hr Azithromycin 250 mg/ Sodium (Chloride) 250 mls @ 250 mls/hr IVPB Q24H [facility] Last Admin: 07/02/17 19:46 Dose: 250 mls/hr Insulin Glargine (Lantus(*)) 5 units SUBCUT Q24H [facility] Last Admin: 07/02/17 18:07 Dose: 5 units Insulin Human Lispro (Humalog*) 0 units SUBCUT AC [facility] PRN Reason: Protocol Last Admin: 07/03/17 13:11 Dose: 5 units Insulin Human Lispro (Humalog*) 0 units SUBCUT AC [facility] PRN Reason: Protocol Last Admin: 07/03/17 13:12 Dose: 2 units Levothyroxine Sodium (Synthroid Tab*) 25 mcg PO 0600 [facility] Last Admin: 07/03/17 05:49 Dose: 25 mcg Lisinopril (Prinivil Tab*) 2.5 mg PO DAILY [facility] Last Admin: 07/03/17 07:34 Dose: 2.5 mg Omeprazole (Prilosec Cap*) 20 mg PO BID [facility] Last Admin: 07/03/17 07:35 Dose: 20 mg Vital Signs - 8 hr 07/03/17 07/03/17 07/03/17 07:31 07:35 07:36 Temperature 98.9 F Pulse Rate 65 65 Respiratory 18 18 19 Rate Blood Pressure 146/41 (mmHg) O2 Sat by Pulse 98 98 Oximetry 07/03/17 07/03/17 07/03/17 07:45 09:41 11:00 Temperature 98.3 F Pulse Rate 61 Respiratory 18 18 18 Rate Blood Pressure 139/36 (mmHg) O2 Sat by Pulse 99 Oximetry Oxygen Devices in Use Now: None Appearance: older than stated age, sitting in chair, NAD Eyes: No Scleral Icterus, PERRLA Ears/Nose/Mouth/Throat: NL Teeth, Lips, Gums, Clear Oropharnyx Neck: NL Appearance and Movements; NL JVP, Trachea Midline Respiratory: Symmetrical Chest Expansion and Respiratory Effort, - - ronchi on right about 1/2 up Cardiovascular: RRR Abdominal: NL Sounds; No Tenderness; No Distention, No Hepatosplenomegaly Lymphatic: No Cervical Adenopathy Extremities: No Edema Neurological: Alert and Oriented x 3 Result Diagrams: 07/03/17 07:05 07/03/17 07:05 Additional Lab and Data: Lab Results 06/29/17 06/29/17 06/29/17 Range/Units 18:17 19:03 19:03 WBC 14.2 H (3.5-10.8) 10^3/ul RBC 3.56 L (4.0-5.4) 10^6/ul Hgb 10.8 L (12.0-16.0) g/dl Hct 32 L (35-47) % MCV 91 (80-97) fL MCH 30 (27-31) pg MCHC 33 (31-36) g/dl RDW 16 H (10.5-15) % Plt Count 154 (150-450) 10^3/ul MPV 8.9 (7.4-10.4) um3 Neut % (Auto) 87.9 H (38-83) % Lymph % (Auto) 6.8 L (25-47) % Mitchell % (Auto) 3.0 (0-7) % Eos % (Auto) 2.0 (0-6) % Baso % (Auto) 0.3 (0-2) % Absolute Neuts (auto) 12.5 H (1.5-7.7) 10^3/ul Absolute Lymphs (auto) 1.0 (1.0-4.8) 10^3/ul Absolute Monos (auto) 0.4 (0-0.8) 10^3/ul Absolute Eos (auto) 0.3 (0-0.6) 10^3/ul Absolute Basos (auto) 0 (0-0.2) 10^3/ul Absolute Nucleated RBC 0 10^3/ul Nucleated RBC % 0 POC Glucose (mg/dL) 112 H (70-100) mg/dL Blood Type O Positive Antibody Screen Pending Microbiology and Other Data: Microbiology 06/30/17 21:27 Aerobic Blood Culture - Preliminary Blood Venous No Growth Day 2 Anaerobic Blood Culture - Preliminary No Growth Day 2 06/30/17 17:17 Aerobic Blood Culture - Preliminary Blood Venous No Growth Day 2 Anaerobic Blood Culture - Preliminary No Growth Day 2 06/30/17 17:32 Legionella Urinary Antigen - Final Urine Negative Legionella Antigen Streptococcus pneumoniae Ag Screen - Final Negative S. pneumo Antigen Assess/Plan/Problems-Billing Assessment: Mrs. Carter is a 77yo F with a complex PMH that includes CAD, s/p TAVR, polyclonal hypergammaglobulinemia, DM2 c/b diabetic retinopathy and nephropathy , chronic Afib not on AC, COPD w/out respiratory failure, anemia of chronic disease, severe PUD, CKD stage 3 to 4, RA, hypothyroidism, HTN, HLD, h/o pacer, who presented to ED with c/o weakness and dyspnea, found to have pneumonia. - Patient Problems (1) Pneumonia Comment: - CxR shows a Right lung infiltrate with concerns for aspiration. - Speech pathology evaluation appreciated - mechanical ground solids and thin liquids. - Continue Ceftriaxone and Zithromax. - Influenza was negative, as well as Legionella and pneumococcal Ag. (2) Sepsis Comment: - Presentation compatible with sepsis with leukocytosis and CO2<32. - Source is pneumonia on right suspect aspiration appreciate swallow eval - mechanical ground CTX and azithro (3) COPD (chronic obstructive pulmonary disease) Comment: - Stable. - Continue bronchodilators. (4) Diabetes Comment: - Very labile. - Continue Lispro SS and carb counting (5) DVT prophylaxis Comment: - SQ heparin. Status and Disposition: Inpatient for management of pneumonia.
[2017-07-03] MEDS: Insulin GLARGINE(*) 1 UNITS UNIT SUBCUT SCH (17:49)
[2017-07-03] MEDS: Azithromycin IV(*) 250 MG in NS 0.9% 250 ML* 250 ML IVPB SCH (20:34)
[2017-07-04] MEDS: Levothyroxine TAB* 25 MCG TAB PO SCH (05:37)
[2017-07-04] MEDS: Heparin VIAL(*) 5000 UNITS/ML VIAL (FIVE THOUSAND) SUBCUT SCH (05:37)
[2017-07-04] MEDS: Diphenoxylat/Atrop 2.5-0.025M* 1 TAB PO PRN (08:01)
[2017-07-04] MEDS: Carvedilol TAB* 6.25 MG PO SCH (08:02)
[2017-07-04] MEDS: Ferrous Sulfate TAB* 325 MG PO SCH (08:02)
[2017-07-04] MEDS: Aspirin EC TAB* 81 MG TAB.EC PO SCH (08:02)
[2017-07-04] MEDS: guaiFENesin ER TAB 600 MG PO SCH (08:02)
[2017-07-04] MEDS: Cyanocobalamin TAB* 500 MCG PO SCH (08:02)
[2017-07-04] MEDS: Hydroxychloroquine TAB* 200 MG PO SCH (08:02)
[2017-07-04] MEDS: Omeprazole CAP* 20 MG PO SCH (08:02)
[2017-07-04] MEDS: Lisinopril TAB* 5 MG PO SCH (08:02)
[2017-07-04] MEDS: Insulin LISPRO* 1 UNITS UNIT SUBCUT SCH ×2 (09:49)
[2017-07-04] MEDS: cefTRIAXone(*) 1 GM in NS 0.9% 50 ML* 50 ML IVPB SCH (09:52)
[2017-07-04 11:50] VITALS: BP 136/42
--- NOTE | 2017-07-04 21:03 | DS ---
CC: Vanesa Alexandra NP * DISCHARGE SUMMARY: DATE OF ADMISSION: 06/29/17 DATE OF DISCHARGE: 07/04/17 PRIMARY CARE PROVIDER: Vanesa Alexandra NP. PRIMARY DIAGNOSIS: Right-sided pneumonia. SECONDARY DIAGNOSES: Include: 1. Chronic obstructive pulmonary disease without respiratory failure. 2. Chronic kidney disease. 3. History of rheumatoid arthritis. 4. Hypothyroidism. 5. Hypertension. 6. History of permanent pacemaker. MEDICATIONS ON DISCHARGE: 1. Augmentin 500 mg twice daily for 3 additional days. Dose for creatinine clearance about 30. 2. Guaifenesin ER 600 mg daily. 3. Simvastatin 40 mg daily. 4. Pantoprazole 40 mg daily. 5. Sublingual nitroglycerin as needed. 6. Lisinopril 2.5 mg daily. 7. Synthroid 25 mcg daily. 8. Humulin 70/30, 10 units in the morning and 5 units in the evening. 9. Hydroxychloroquine 400 mg daily. 10. Ferrous sulfate 325 mg daily. 11. Lomotil 1 tab daily as needed. 12. Vitamin B12, 500 mcg twice daily. 13. Carvedilol 12.5 mg twice daily. 14. Calcium carbonate 1000 mg twice daily. 15. Caltrate plus vitamin D 1 tab daily. 16. Aspirin 81 mg daily. 17. Albuterol 4 times a day as needed. 18. Acetaminophen 650 mg every 4 hours as needed. PERTINENT IMAGING STUDIES: Chest x-ray performed on admission. Impression: Small inflammatory infiltrate in the right lung base. PERTINENT LABORATORY DATA: White blood cell count on presentation 14.2, decreased to 7.9 a day prior to discharge. HISTORY OF PRESENT ILLNESS AND HOSPITAL COURSE: This is a 77-year-old female with past medical history as outlined in the history of present illness on the day of admission, presented to the hospital with increasing weakness and shortness of breath. Chest x-ray was notable for suspected pneumonia in the right base. She was began on cefepime and azithromycin, narrowed to ceftriaxone and azithromycin. She received a total of 5 days of azithromycin in the hospital as well as 5 days of cephalosporin. She was narrowed to Augmentin renally dosed for 3 additional days for a total of 8 days of antibiotics and 5 days of azithromycin. On the day of discharge, she was on room air, felt almost back to her baseline. Her breathing was baseline, although still felt a little weak. She was ambulating back and forth to the bathroom about the same distance that she ambulates at home without any shortness of breath. Her cough had abated. She felt anxious to return home today. There were no complications during the course of the hospital stay. The patient and her son had noted that she had been coughing at home with eating and there was concern for aspiration. She underwent a swallow evaluation and a mechanical ground texture was recommended as a diet which is continued recommendation on discharge. At followup, please; 1. ___Evaluate for___ continued resolution of pneumonia. 2. No other specific labs or vital needs followup. Reasons to return to the hospital including but not limited to, recurrent or worsening symptoms including shortness of breath or fevers, chest pain, nausea, vomiting, lightheadedness, loss of consciousness, near loss of consciousness, inability to obtain or tolerate medications were discussed with the patient. She acknowledged understanding. TIME SPENT: Greater than 45 minutes were spent discharging this patient, greater than half was spent [id number] with the patient. [id number]/[facility] #: [id number] CESAR
== END 2017-07-04 12:35 | disposition home or self-care (01) | DRG 871 ==
LOC: ED 17:58 → MED 21:27 → OBSVTOIN 21:27 → INTOOBSV 21:27 → OBSVTOIN 06-30 16:29
PROVIDERS: ADMIT Pediatrics; ATTEND Internal Medicine
DX: A41.9 Sepsis, unspecified organism (principal); J18.9 Pneumonia, unspecified organism; N18.4 Chronic kidney disease, stage 4 (severe); J44.9 Chronic obstructive pulmonary disease, unspecified; I13.10 Hypertensive heart and chronic kidney disease without heart failure, with stage 1 through stage 4 chronic kidney disease, or unspecified chronic kidney disease; E11.22 Type 2 diabetes mellitus with diabetic chronic kidney disease; I25.10 Atherosclerotic heart disease of native coronary artery without angina pectoris; D89.0 Polyclonal hypergammaglobulinemia; E11.319 Type 2 diabetes mellitus with unspecified diabetic retinopathy without macular edema; E11.649 Type 2 diabetes mellitus with hypoglycemia without coma; I48.2 Chronic atrial fibrillation; D63.1 Anemia in chronic kidney disease; K27.9 Peptic ulcer, site unspecified, unspecified as acute or chronic, without hemorrhage or perforation; M06.9 Rheumatoid arthritis, unspecified; E03.9 Hypothyroidism, unspecified; E78.5 Hyperlipidemia, unspecified; E11.21 Type 2 diabetes mellitus with diabetic nephropathy; Z95.0 Presence of cardiac pacemaker; Z79.1 Long term (current) use of non-steroidal anti-inflammatories (NSAID); Z79.82 Long term (current) use of aspirin; Z79.4 Long term (current) use of insulin; Z79.899 Other long term (current) drug therapy; Z88.1 Allergy status to other antibiotic agents; Z88.5 Allergy status to narcotic agent; Z88.2 Allergy status to sulfonamides; Z87.891 Personal history of nicotine dependence; Z82.49 Family history of ischemic heart disease and other diseases of the circulatory system
CPT/HCPCS: 36415; 71045; 80048; 80053; 81003; 81015; 82803; 82947; 83036; 83605; 83690; 83735; 83880; 84443; 84484; 85025; 85610; 85730; 86140; 86850; 86900; 86901; 87040; 87086; 87502; 87899; 93005; 99285; A9270-GY; G8978-GP-CI; G8979-GP-CI; G8980-GP-CI; J0456; J0692; J0696; J1644; J2930

== ENCOUNTER 2017-08-09 08:27 | Emergency (ER) | payer MEDICARE, MEDICAID ==
[2017-08-09 09:13] LABS: ABS Basophils 0.1 10^3/ul (0-0.2); ABS Eosinophils 0 10^3/ul (0-0.6); ABS Lymphocytes 0.6 10^3/ul (1.0-4.8); ABS Monocytes 0.4 10^3/ul (0-0.8); ABS Neutrophils 10.6 10^3/ul (1.5-7.7); ABS Nucleated RBC 0 10^3/ul; Eosinophil % 0.2 % (0-6); Hematocrit 31 % (35-47); Hemoglobin 10.2 g/dl (12.0-16.0); Lymphocyte % 5.3 % (25-47); Mean Corpuscular HGB Conc 33 g/dl (31-36); Mean Corpuscular Hemoglobin 31 pg (27-31); Mean Corpuscular Volume 94 fL (80-97); Mean Platelet Volume 8.7 um3 (7.4-10.4); Nucleated Red Blood Cells % 0; Platelet Count 191 10^3/ul (150-450); Red Blood Count 3.28 10^6/ul (4.00-5.40); Red Cell Distribution Width 15 % (10.5-15); White Blood Count 11.7 10^3/ul (3.5-10.8)
[2017-08-09 09:14] LABS: INR 0.94 (0.77-1.02)
--- NOTE | 2017-08-09 09:40 | RAD ---
HISTORY: AMS COMPARISONS: June 11, 2015 TECHNIQUE: Multiple contiguous axial CT scans were obtained of the head without intravenous contrast. FINDINGS: HEMORRHAGE/INFARCT: There is no hemorrhage or acute infarct. MASSES/SHIFT: There is no mass or shift. EXTRA-AXIAL SPACES: There are no extra-axial fluid collections. SULCI AND VENTRICLES: The sulci and ventricles are normal in size and position for the patient's stated age. CEREBRUM: There is mild hypoattenuation of the periventricular and subcortical white matter. BRAINSTEM: There are no focal parenchymal abnormalities. CEREBELLUM: There is dystrophic calcification of the cerebellum, stable. VESSELS: There is calcification of the cavernous segments of the internal carotid arteries bilaterally and of the distal vertebral arteries bilaterally. There is peripheral arterial calcification of the scalp. PARANASAL SINUSES: The paranasal sinuses are clear. ORBITS: The orbits are unremarkable. BONES AND SOFT TISSUE: No bone or soft tissue abnormalities are noted. OTHER: None IMPRESSION: NO ACUTE INTRACRANIAL PATHOLOGY.
--- NOTE | 2017-08-09 09:44 | RAD ---
INDICATION: Altered mental status COMPARISON: June 29, 2017 TECHNIQUE: An AP portable view obtained at 0841 hours is submitted. FINDINGS: Bones/Soft Tissues: There are no acute bony findings. Cardiomediastinal: The heart is normal in size. There is stenting of the level the aortic valve. There is cardiac pacemaker Lungs: There are no infiltrates. Pleura: There are no pleural effusions. Other: None IMPRESSION: POSTOPERATIVE CHANGE. NO ACTIVE DISEASE.
[2017-08-09 09:46] LABS: Urine Appearance Cloudy; Urine Blood Negative (Negative); Urine Color Yellow; Urine Ketones Negative (Negative); Urine Protein 2+(100 mg/dL) (Negative); Urine Red Blood Cell 1+(3-5/hpf) (Absent); Urine Specific Gravity 1.011 (1.010-1.030); Urine Urobilinogen Negative (Negative); Urine White Blood Cell 3+(>20/hpf) (Absent)
[2017-08-09] MEDS ORDERED: cefTRIAXone(*) 1 GM in NS 0.9% 50 ML* 50 ML IVPB ONE (10:59)
[2017-08-09 13:00] VITALS: BP 168/67
--- NOTE | 2017-08-09 15:31 | ED ---
Emanuel Brown Tenzin, scribed for Casper Moctezuma MD on 08/09/17 at 0857 . Complex/Multi-Sys Presentation - HPI Summary HPI Summary: Pt is a 77 years old female BIBA with complaints of diaphoresis, chills and screaming since this morning. Pt is with her granddaughter and she reports that pt has lots of problem with her health in general but the complaint this morning started after she noticed pt's blood sugar was at 97 and low. She reports that the pt usually feels better after having a sugary drink like an orange juice but today it didn't help the pt. Pt's granddaughter was worried and called ambulance because she noted that it seems like pt " is acting as her blood sugar was dropping and was concerned about her health." Pts granddaughter sleeps and lives with her. - History Of Current Complaint Time Seen by Provider: 08/09/17 08:32 Hx Obtained From: Patient, Family/Trim Carpenter - Granddaughter Associated Signs And Symptoms: Positive: Diaphoresis, Other - chills. - Allergies/Home Medications Allergies/Adverse Reactions: Allergies Allergy/AdvReac Type Severity Reaction Status Date / Time codeine Allergy Rash Verified 08/09/17 09:03 levofloxacin [From Levaquin] Allergy Agitation Verified 08/09/17 09:03 Sulfa (Sulfonamide Allergy Hives Verified 08/09/17 09:03 Antibiotics) Home Medications: Home Medications Aspirin EC TAB* [Ecotrin EC Low Dose 81 MG*] 81 mg PO DAILY 08/09/17 [History Confirmed 08/09/17] PMH/Surg Hx/FS Hx/Imm Hx Endocrine/Hematology History: Reports: Hx Anticoagulant Therapy, Hx Blood Transfusions, Hx Diabetes, Hx Thyroid Disease, Hx Anemia, 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 Denies: Hx Systemic Lupus Erythematosus Cardiovascular History: Reports: Hx Angina, Hx Auto Implanted Cardiovert Defib, Hx Congestive Heart Failure, Hx Coronary Artery Disease, Hx Deep Vein Thrombosis - Man-made clot caused by nurse 40+ years ago, Hx Hypercholesterolemia, Hx Hypertension, Hx Pacemaker/ICD, Hx Valvular Heart Disease, Other Cardiovascular Problems/Disorders - Aortic valve replacement, bradycardia, cardiac catherization Denies: Hx Myocardial Infarction, Hx Rheumatic Fever, Hx Syncope Respiratory History: Reports: Hx Asthma, Hx Chronic Obstructive Pulmonary Disease (COPD), Hx Pneumonia Denies: Hx Lung Cancer, Hx Sleep Apnea GI History: Reports: Hx Ulcer - Peptic ulcer disease, Other GI Disorders - gastric bypass Denies: Hx Gastroesophageal Reflux Disease History: Reports: Other Problems/Disorders - UTIs, CKD Denies: Hx Kidney Stones, Hx Renal Disease Musculoskeletal History: Reports: Hx Arthritis, Hx Rheumatoid Arthritis, Hx Back Problems, Hx Osteoporosis Denies: Hx Gout, Hx Orthopedic Injury Sensory History: Reports: Hx Cataracts, Hx Contacts or Glasses, Other Sensory Impairments - Retinoplasty Denies: Hx Hearing Aid, Hx Hearing Problem Opthamlomology History: Reports: Hx Cataracts, Hx Contacts or Glasses, Other Sensory Impairments - Retinoplasty Neurological History: Denies: Hx Dementia, Hx Developmental Delay, Hx Headaches, Hx Migraine, Hx Nerve Disease, Hx Seizures, Hx Spinal Cord Injury, Hx Transient Ischemic Attacks (TIA), Other Neuro Impairments/Disorders Psychiatric History: Reports: Hx Depression - Cancer History Cancer Type, Location and Year: Two sisters had breast cancer - Surgical History Surgery Procedure, Year, and Place: Hysterectomy. Appendectomy. Tonsillectomy. Bilateral Knee Arthroscopy. Diabetic Retinopathy-eye surgery. Bilateral Cataract removal. Sinus Surgery. Florentin-en-y gastric bypass, 2007. Cholecystecomy 2009. Carpal Tunnel Surgery. Aortic Valve replacement, 2016, [facility] Anest[facility] Reactions: No - Immunization History Date of Tetanus Vaccine: utd Date of Influenza Vaccine: utd Infectious Disease History: Reports: Hx Clostridium Difficile - History Denies: Hx Hepatitis, Hx Human Immunodeficiency Virus (HIV), Hx of Known/ Suspected MRSA, Hx Shingles, Hx Tuberculosis, Hx Known/Suspected VRE, Hx Known/ Suspected VRSA, History Other Infectious Disease, Traveled Outside the [place] in Last 30 Days - Family History Known Family History: Positive: None, Cardiac Disease, Diabetes, Other - Breast Cancer - Social History Alcohol Use: Rare Hx Substance Use: No Substance Use Type: Reports: None Hx Tobacco Use: Yes - quit > 20 yrs ago Smoking Status (MU): Former Smoker Type: Cigarettes Have You Smoked in the Last Year: No Review of Systems Positive: Chills, Skin Diaphoresis Psychological: Other - screaming and shouting, feeling agitated. All Other Systems Reviewed And Are Negative: Yes Physical Exam - Summary Physical Exam Summary: Appearance: The patient is well-nourished in no acute distress and in no acute pain. Skin: The skin is warm and dry and skin color reflects adequate perfusion. HEENT: The head is normocephalic and atraumatic. The pupils are equal and reactive. The conjunctivae are clear and without drainage. Nares are patent and without drainage. Mouth reveals moist mucous membranes and the throat is without erythema and exudate. The external ears are intact. The ear canals are patent and without drainage. The tympanic membranes are intact. Neck: the neck is supple with full range of motion and non-tender. There are no carotid bruits. There is no neck vein distension. Respiratory: Chest is non-tender. Lungs are clear to auscultation and breath sounds are symmetrical and equal. Cardiovascular: Heart is regular rate and rhythm. There is no murmur or rub auscultated. There is no peripheral edema and pulses are symmetrical and equal. Abdomen: The abdomen is soft and non-tender. There are normal bowel sounds heard in all four quadrants and there is no organomegaly palpated. Musculoskeletal: There is no back tenderness noted. Extremities are non-tender with full range of motion. There is good capillary refill. There is no peripheral edema or calf tenderness elicited. Neurological: Patient is alert and oriented to person, place and time. The patient has symmetrical motor strength in all four extremities. Cranial nerves are grossly intact. Deep tendon reflexes are symmetrical and equal in all four extremities. Psychiatric: The patient has an appropriate affect and does not exhibit any anxiety or depression. Triage Information Reviewed: Yes Vital Signs On Initial Exam: Initial Vitals Temp Pulse Resp BP Pulse Ox 96.7 F 83 17 154/81 99 08/09/17 08:45 08/09/17 08:45 08/09/17 08:45 08/09/17 08:45 08/09/17 08:45 Vital Signs Reviewed: Yes Diagnostics - Vital Signs Vital Signs Temp Pulse Resp BP Pulse Ox 08/09/17 13:18 97.6 F 60 17 168/67 99 08/09/17 12:53 62 17 168/67 99 08/09/17 12:22 60 2 135/53 100 08/09/17 12:00 60 2 100 08/09/17 11:52 60 2 145/58 100 08/09/17 11:22 62 4 152/58 99 08/09/17 11:00 60 6 100 08/09/17 10:52 69 6 144/61 99 08/09/17 10:22 65 20 144/68 100 08/09/17 10:00 60 12 100 08/09/17 09:52 60 14 142/55 100 08/09/17 09:00 71 15 99 08/09/17 08:52 17 154/81 08/09/17 08:51 12 08/09/17 08:45 96.7 F 83 17 154/81 99 - Laboratory Lab Results: Lab Results 08/09/17 08/09/17 08/09/17 Range/Units 09:01 09:01 09:01 WBC 11.7 H (3.5-10.8) 10^3/ul RBC 3.28 L (4.00-5.40) 10^6/ul Hgb 10.2 L (12.0-16.0) g/dl Hct 31 L (35-47) % MCV 94 (80-97) fL MCH 31 (27-31) pg MCHC 33 (31-36) g/dl RDW 15 (10.5-15) % Plt Count 191 (150-450) 10^3/ul MPV 8.7 (7.4-10.4) um3 Neut % (Auto) 90.7 H (38-83) % Lymph % (Auto) 5.3 L (25-47) % Schley % (Auto) 3.2 (0-7) % Eos % (Auto) 0.2 (0-6) % Baso % (Auto) 0.6 (0-2) % Absolute Neuts (auto) 10.6 H (1.5-7.7) 10^3/ul Absolute Lymphs (auto) 0.6 L (1.0-4.8) 10^3/ul Absolute Monos (auto) 0.4 (0-0.8) 10^3/ul Absolute Eos (auto) 0 (0-0.6) 10^3/ul Absolute Basos (auto) 0.1 (0-0.2) 10^3/ul Absolute Nucleated RBC 0 10^3/ul Nucleated RBC % 0 INR (Anticoag Therapy) (0.77-1.02) Sodium 140 (135-145) mmol/L Potassium 4.8 (3.5-5.0) mmol/L Chloride 113 H (101-111) mmol/L Carbon Dioxide 17 L (22-32) mmol/L Anion Gap 10 (2-11) mmol/L BUN 61 H (6-24) mg/dL Creatinine 1.61 H (0.51-0.95) mg/dL Est GFR ( Amer) 39.8 (>60) Est GFR (Non-Af Amer) 31.0 (>60) BUN/Creatinine Ratio 37.9 H (8-20) Glucose 96 (70-100) mg/dL POC Glucose (mg/dL) (70-100) mg/dL Lactic Acid 2.1 H* (0.5-2.0) mmol/L Calcium 8.9 (8.6-10.3) mg/dL Total Bilirubin 0.30 (0.2-1.0) mg/dL AST 16 (13-39) U/L ALT 12 (7-52) U/L Alkaline Phosphatase 72 (34-104) U/L Troponin I 0.03 (<0.04) ng/mL Total Protein 7.3 (6.4-8.9) g/dL Albumin 3.5 (3.2-5.2) g/dL Globulin 3.8 (2-4) g/dL Albumin/Globulin Ratio 0.9 L (1-3) TSH 4.19 (0.34-5.60) mcIU/mL Urine Color Urine Appearance Urine pH (5-9) Ur Specific [place] (1.010-1.030) Urine Protein (Negative) Urine Ketones (Negative) Urine Blood (Negative) Urine Nitrate (Negative) Urine Bilirubin (Negative) Urine Urobilinogen (Negative) Ur Leukocyte Esterase (Negative) Urine WBC (Auto) (Absent) Urine RBC (Auto) (Absent) Ur Squamous Epith Cells (Absent) Urine Bacteria (Absent) Urine Glucose (Negative) Urine Ascorbic Acid (Negative) 08/09/17 08/09/17 08/09/17 Range/Units 09:01 09:12 09:18 WBC (3.5-10.8) 10^3/ul RBC (4.00-5.40) 10^6/ul Hgb (12.0-16.0) g/dl Hct (35-47) % MCV (80-97) fL MCH (27-31) pg MCHC (31-36) g/dl RDW (10.5-15) % Plt Count (150-450) 10^3/ul MPV (7.4-10.4) um3 Neut % (Auto) (38-83) % Lymph % (Auto) (25-47) % Schley % (Auto) (0-7) % Eos % (Auto) (0-6) % Baso % (Auto) (0-2) % Absolute Neuts (auto) (1.5-7.7) 10^3/ul Absolute Lymphs (auto) (1.0-4.8) 10^3/ul Absolute Monos (auto) (0-0.8) 10^3/ul Absolute Eos (auto) (0-0.6) 10^3/ul Absolute Basos (auto) (0-0.2) 10^3/ul Absolute Nucleated RBC 10^3/ul Nucleated RBC % INR (Anticoag Therapy) 0.94 (0.77-1.02) Sodium (135-145) mmol/L Potassium (3.5-5.0) mmol/L Chloride (101-111) mmol/L Carbon Dioxide (22-32) mmol/L Anion Gap (2-11) mmol/L BUN (6-24) mg/dL Creatinine (0.51-0.95) mg/dL Est GFR ( Amer) (>60) Est GFR (Non-Af Amer) (>60) BUN/Creatinine Ratio (8-20) Glucose (70-100) mg/dL POC Glucose (mg/dL) 112 H (70-100) mg/dL Lactic Acid (0.5-2.0) mmol/L Calcium (8.6-10.3) mg/dL Total Bilirubin (0.2-1.0) mg/dL AST (13-39) U/L ALT (7-52) U/L Alkaline Phosphatase (34-104) U/L Troponin I (<0.04) ng/mL Total Protein (6.4-8.9) g/dL Albumin (3.2-5.2) g/dL Globulin (2-4) g/dL Albumin/Globulin Ratio (1-3) TSH (0.34-5.60) mcIU/mL Urine Color Yellow Urine Appearance Cloudy Urine pH 5.0 (5-9) Ur Specific [place] 1.011 (1.010-1.030) Urine Protein 2+(100 mg/dl) A (Negative) Urine Ketones Negative (Negative) Urine Blood Negative (Negative) Urine Nitrate Negative (Negative) Urine Bilirubin Negative (Negative) Urine Urobilinogen Negative (Negative) Ur Leukocyte Esterase 3+ A (Negative) Urine WBC (Auto) 3+(>20/hpf) A (Absent) Urine RBC (Auto) 1+(3-5/hpf) A (Absent) Ur Squamous Epith Cells Present A (Absent) Urine Bacteria Absent (Absent) Urine Glucose Negative (Negative) Urine Ascorbic Acid * A (Negative) Result Diagrams: 08/09/17 09:01 08/09/17 09:01 Lab Statement: Any lab studies that have been ordered have been reviewed, and results considered in the medical decision making process. - Radiology CHEST X RAY Radiology Interpretation Completed By: Radiologist - IMPRESSION: POSTOPERATIVE CHANGE. NO ACTIVE DISEASE. Dr. Moctezuma reviewed the report. - CT BRAIN CT CT Interpretation Completed By: Radiologist - impression: No acute intracranial pathology. Dr. Moctezuma reviewed the report. - EKG 8:54 Cardiac Rate: NL - 70 BPM EKG Interpretation: Ventricular paced rhythm and typical changing with the paces. Complex Multi-Symp Course/Dx Course Of Treatment: Ms. Carter presented by EMS after an unusual episode at home. Her granddaughter was sleeping with her as is her practice, and she woke up to find her grandmother confused and agitated. The granddaughter thought that the patient might have low blood sugar and checked it and found it to be 98. The patient had calmed down by the time she arrived here but the granddaughter felt that she was still not behaving as her normal self. The granddaughter felt that the patient was less active than she normally would be. The patient complained only of being cold. Her exam and workup were fairly unremarkable aside from a likely urinary tract infection. I will treat her for the above. She is stable at this point and I will discharge her home. - Diagnoses Provider Diagnoses: UTI (urinary tract infection) Discharge - Sign-Out/Discharge Documenting (check all that apply): Discharge/Admit/Transfer - discharge - Discharge Plan Condition: Stable Disposition: HOME Prescriptions: Nitrofurantoin Monohyd/M-Cryst [Macrobid 100 mg Capsule] 100 mg PO BID #14 cap Patient Education Materials: Urinary Tract Infection in Women (ED) Referrals: Vanesa Alexandra, BINDERY TECHNICIAN [Primary Care Provider] - 3 Days Additional Instructions: Follow up with your primary care physician in three days. Return to the emergency department for any new or worsening symptoms. - Billing Disposition and Condition Condition: STABLE Disposition: Home The documentation as recorded by the Emanuel jc Tenzin accurately reflects the service I personally performed and the decisions made by me, Casper Moctezuma MD.
--- NOTE | 2017-08-12 07:00 | PN ---
Progress Note - Progress Note Date of Service: 08/09/17 Note: Pt. seen in the ER 08/09 and started on Macrobid for a UTI. Final urine culture today is growing >100,000 e. coli susceptible to macrobid. No change in treatment needed at this time.
== END 2017-08-09 13:18 | disposition home or self-care (01) ==
LOC: ED 08:27
DX: N39.0 Urinary tract infection, site not specified (principal); R41.0 Disorientation, unspecified; R45.1 Restlessness and agitation; Z87.891 Personal history of nicotine dependence; Z88.5 Allergy status to narcotic agent; Z88.3 Allergy status to other anti-infective agents; Z88.2 Allergy status to sulfonamides
CPT/HCPCS: 36415; 70450; 71045; 80053; 81003; 81015; 83605; 84443; 84484; 85025; 85610; 87077; 87086; 87186; 93005; 96365; 99283; J0696

== ENCOUNTER 2017-12-28 09:25 | Emergency (ER) | payer MEDICARE, MEDICAID ==
--- NOTE | 2017-12-28 09:56 | ED ---
Throat Pain/Nasal Congestion - HPI Summary HPI Summary: This pt is a 77 y/o female presenting to [facility] c/o epistaxis today. Pt states that since 07:30 today pt has had continuous epistaxis that has not stopped. Denies trauma or fall. Per family member, blood from nose has slowed down at times but has not completely stopped. Pt has post nasal drip feeling of blood going in the back of her throat and is also coughing up blood. Denies fever, hematemesis, nausea, vomiting, chest pain, SOB, ear ache, changes in vision, calf pain, numbness or tingling in LE or UE. Pt also had an episode of epistaxis last night that was able to be stopped. The last time she had this episode of epistaxis was a few years ago when she had to come to the ED to get her nose cauterized. Pt is on baby aspirin every morning. She does not take ibuprofen or any other NSAIDs regularly. Pt is not on allergy medications. PMHx includes aspiration pneumonia, diabetes, anemia. The last time pt had blood transfusion for anemia was in February 2017. Per family member, pt bruises very easily. Per family member pt has not been drinking a lot of water. - History of Current Complaint Chief Complaint: EDEpistaxis Hx Obtained From: Patient, Family/Cytopathology Technologist Onset/Duration: Lasting Hours, Still Present Severity: Moderate Associated Signs And Symptoms: Positive: Nasal Discharge - bloody Cough: None - Allergies/Home Medications Allergies/Adverse Reactions: Allergies Allergy/AdvReac Type Severity Reaction Status Date / Time codeine Allergy Rash Verified 12/28/17 09:32 levofloxacin [From Levaquin] Allergy Agitation Verified 12/28/17 09:32 Sulfa (Sulfonamide Allergy Hives Verified 12/28/17 09:32 Antibiotics) PMH/Surg Hx/FS Hx/Imm Hx Endocrine/Hematology History: Reports: Hx Anticoagulant Therapy, Hx Blood Transfusions, Hx Diabetes, Hx Thyroid Disease, Hx Anemia, 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 Denies: Hx Systemic Lupus Erythematosus Cardiovascular History: Reports: Hx Angina, Hx Auto Implanted Cardiovert Defib, Hx Congestive Heart Failure, Hx Coronary Artery Disease, Hx Deep Vein Thrombosis - Man-made clot caused by nurse 40+ years ago, Hx Hypercholesterolemia, Hx Hypertension, Hx Pacemaker/ICD, Hx Valvular Heart Disease, Other Cardiovascular Problems/Disorders - Aortic valve replacement, bradycardia, cardiac catherization Denies: Hx Myocardial Infarction, Hx Rheumatic Fever, Hx Syncope Respiratory History: Reports: Hx Asthma, Hx Chronic Obstructive Pulmonary Disease (COPD), Hx Pneumonia Denies: Hx Lung Cancer, Hx Sleep Apnea GI History: Reports: Hx Ulcer - Peptic ulcer disease, Other GI Disorders - gastric bypass Denies: Hx Gastroesophageal Reflux Disease History: Reports: Other Problems/Disorders - UTIs, CKD Denies: Hx Kidney Stones, Hx Renal Disease Musculoskeletal History: Reports: Hx Arthritis, Hx Rheumatoid Arthritis, Hx Back Problems, Hx Osteoporosis Denies: Hx Gout, Hx Orthopedic Injury Sensory History: Reports: Hx Cataracts, Hx Contacts or Glasses, Other Sensory Impairments - Retinoplasty Denies: Hx Hearing Aid, Hx Hearing Problem Opthamlomology History: Reports: Hx Cataracts, Hx Contacts or Glasses, Other Sensory Impairments - Retinoplasty Neurological History: Denies: Hx Dementia, Hx Developmental Delay, Hx Headaches, Hx Migraine, Hx Nerve Disease, Hx Seizures, Hx Spinal Cord Injury, Hx Transient Ischemic Attacks (TIA), Other Neuro Impairments/Disorders Psychiatric History: Reports: Hx Depression - Cancer History Cancer Type, Location and Year: Two sisters had breast cancer Hx Chemotherapy: No Hx Radiation Therapy: No - Surgical History Surgery Procedure, Year, and Place: Hysterectomy. Appendectomy. Tonsillectomy. Bilateral Knee Arthroscopy. Diabetic Retinopathy-eye surgery. GASTRIC BYPASS. Bilateral Cataract removal. Sinus Surgery. Florentin-en-y gastric bypass, 2007. Cholecystecomy 2009. Carpal Tunnel Surgery. Aortic Valve replacement, 2016, [facility] Hx Anesthesia Reactions: No - Immunization History Date of Tetanus Vaccine: utd Date of Influenza Vaccine: utd Infectious Disease History: No Infectious Disease History: Reports: Hx Clostridium Difficile - History Denies: Hx Hepatitis, Hx Human Immunodeficiency Virus (HIV), Hx of Known/ Suspected MRSA, Hx Shingles, Hx Tuberculosis, Hx Known/Suspected VRE, Hx Known/ Suspected VRSA, History Other Infectious Disease, Traveled Outside the [place] in Last 30 Days - Family History Known Family History: Positive: Cardiac Disease, Diabetes, Other - Breast Cancer - Social History Alcohol Use: Rare Hx Substance Use: No Substance Use Type: Reports: None Hx Tobacco Use: Yes - quit > 20 yrs ago Smoking Status (MU): Former Smoker Type: Cigarettes Have You Smoked in the Last Year: No Review of Systems Negative: Fever, Chills Negative: Other - changes in vision Positive: Epistaxis. Negative: Ear Ache Negative: Chest Pain Negative: Shortness Of Breath Negative: Vomiting, Nausea, Other - hematemesis Negative: Other - calf pain Negative: Weakness, Numbness All Other Systems Reviewed And Are Negative: Yes Physical Exam - Summary Physical Exam Summary: Appearance: Distress with heavy bleeding from left nare and clot on right nare. Skin: warm, dry. Think and frail. Mildly pale. Head/face: normal Eyes: EOMI, NEMO ENT: normal Neck: supple, non-tender Respiratory: Fine crackles everywhere. Cardiovascular: RRR, pulses symmetrical Abdomen: non-tender, soft Bowel: present Musculoskeletal: strength/ROM intact. 2+ lower extremity edema. Neuro: normal, sensory motor intact, A&Ox3. Pt is a little anxious. Triage Information Reviewed: Yes Vital Signs On Initial Exam: Initial Vitals Temp Pulse Resp BP Pulse Ox 97.8 F 63 14 149/51 97 12/28/17 09:28 12/28/17 09:28 12/28/17 09:28 12/28/17 09:28 12/28/17 09:28 Vital Signs Reviewed: Yes Procedures - Procedure Summary Procedure Summary: Management of epistaxis: Description: The patient was placed in a seated position and I wore a headlamp. She blew out clots from both nares. Cotton soaked with Afrin was placed in both nares and pressure was held for several minutes. This slowed bleeding but did not stop it. We had difficulty with rapid bleeding from the left there. Cotton was then soaked with TXA and held in place for another couple minutes. This greatly improved her symptoms. An anterior site of bleeding was identified. This was treated with topical 4% cocaine and cauterized with 2 sticks of silver nitrate. She was then watched for 20 minutes without any rebleeding. Given no rebleeding loose packing with Vaseline gauze was performed. She was discharged in good condition and tolerated this well. Diagnostics - Vital Signs Vital Signs Temp Pulse Resp BP Pulse Ox 12/28/17 09:28 97.8 F 63 14 149/51 97 - Laboratory Result Diagrams: 12/28/17 10:29 Lab Statement: Any lab studies that have been ordered have been reviewed, and results considered in the medical decision making process. Re-Evaluation - Re-Evaluation First Eval Re-Evaluation Time: 10:58 Change: Improved Comment: Bleeding has stopped. EENT Course/Dx - Course Course Of Treatment: Patient with a history of chronic anemia presents with nose bleed on aspirin only. Anterior site identified and was able to be cauterized. No further rebleeding. Hemoglobin is 39.8. We would like her to go see hematology for repeat blood work in 1-2 days. No significant anemic symptoms at this time. - Differential Diagnoses Differential Diagnoses: Other - Anterior versus posterior epistaxis - Diagnoses Provider Diagnoses: Acute anterior epistaxis, Chronic anemia Discharge - Sign-Out/Discharge Documenting (check all that apply): Patient Departure - Discharge - Discharge Plan Condition: Improved Disposition: HOME Patient Education Materials: Nosebleed (ED), Anemia (ED) Referrals: Liz Broderick MD [Medical Doctor] - Vanesa Alexandra NP [Primary Care Provider] - Additional Instructions: Call your doctor now to schedule prompt follow-up and recheck of your blood counts. Remove packing before bedtime tonight. Humidifier while sleeping. Use of daily nasal saline may help keep moisture in the area and prevent bleeding. Return with recent bleeding, worse or other concerns. - Billing Disposition and Condition Condition: IMPROVED Disposition: Home - Attestation Statements Document Initiated by Mayra: Yes Documenting Scribe: Ebonie Aggarwal Provider For Whom Mayra is Documenting (Include Credential): Michael Brian MD Scribe Attestation: Ebonie Brown scribed for Michael Brian MD on 12/28/17 at 1357. Scribe Documentation Reviewed: Yes Provider Attestation: The documentation as recorded by the Ebonie jc accurately reflects the service I personally performed and the decisions made by me, Michael Brian MD
[2017-12-28] MEDS ORDERED: Cocaine 4% TOPICAL* 4 ML TOP.SOLN LEFT NARE ONE (10:04)
[2017-12-28] MEDS ORDERED: Oxymetazoline 0.05% NASAL SPR* 15 ML BTL BOTH NARES ONE (10:04)
[2017-12-28] MEDS ORDERED: Silver Nitrate/Potassium Nitr* 1 EA STICK ONE ×2 (10:17→10:20)
[2017-12-28] MEDS ORDERED: Tranexamic Acid 1,000 MG/10 ML SDV IV ONE (10:19)
[2017-12-28 10:37] LABS: ABS Basophils 0 10^3/ul (0-0.2); ABS Eosinophils 0.3 10^3/ul (0-0.6); ABS Lymphocytes 0.9 10^3/ul (1.0-4.8); ABS Monocytes 0.6 10^3/ul (0-0.8); ABS Nucleated RBC 0 10^3/ul; Eosinophil % 3.5 % (0-6); Hematocrit 29 % (35-47); Hemoglobin 9.8 g/dl (12.0-16.0); Lymphocyte % 11.5 % (25-47); Mean Corpuscular HGB Conc 33 g/dl (31-36); Mean Corpuscular Hemoglobin 32 pg (27-31); Mean Corpuscular Volume 97 fL (80-97); Mean Platelet Volume 9.1 fL (7.4-10.4); Nucleated Red Blood Cells % 0; Platelet Count 168 10^3/ul (150-450); Red Blood Count 3.04 10^6/ul (4.00-5.40); Red Cell Distribution Width 15 % (10.5-15); White Blood Count 7.8 10^3/ul (3.5-10.8)
[2017-12-28 11:23] VITALS: BP 180/80
== END 2017-12-28 11:24 | disposition home or self-care (01) ==
LOC: ED 09:25
DX: R04.0 Epistaxis (principal); D64.9 Anemia, unspecified; Z79.82 Long term (current) use of aspirin; Z95.810 Presence of automatic (implantable) cardiac defibrillator; Z88.1 Allergy status to other antibiotic agents; Z88.5 Allergy status to narcotic agent; Z88.2 Allergy status to sulfonamides; Z87.891 Personal history of nicotine dependence
CPT/HCPCS: 36415; 85025; 99282; A9270-GY

== ENCOUNTER 2017-12-28 14:07 | Inpatient (IN) | payer MEDICARE, MEDICAID ==
--- NOTE | 2017-12-28 14:20 | ED ---
Throat Pain/Nasal Congestion - HPI Summary HPI Summary: This pt is a 77 y/o female presenting to [facility] c/o epistaxis. Pt was recently discharged from [facility] earlier today after being cauterized for epistaxis. Pt reports she went home, ate, and took a nap. After waking up she went to the bathroom and had diarrhea. Pt took an anti diarrheal and shortly after bleeding from her nose started again at around 13:00. Pt states her packing fell out on the way to the ED on its own. PMHx includes aspiration pneumonia, diabetes, anemia. - History of Current Complaint Chief Complaint: EDEpistaxis Time Seen by Provider: 12/28/17 14:14 Hx Obtained From: Patient Onset/Duration: Lasting Hours, Still Present Severity: Moderate Associated Signs And Symptoms: Positive: Nasal Discharge - epistaxis Cough: None Related History: Other (Noted In Comments) - cauterized earlier today - Allergies/Home Medications Allergies/Adverse Reactions: Allergies Allergy/AdvReac Type Severity Reaction Status Date / Time codeine Allergy Rash Verified 12/28/17 09:32 levofloxacin [From Levaquin] Allergy Agitation Verified 12/28/17 09:32 Sulfa (Sulfonamide Allergy Hives Verified 12/28/17 09:32 Antibiotics) Home Medications: Home Medications Albuterol HFA INHALER* [Ventolin HFA Inhaler*] 2 puff INH Q6H PRN 12/28/17 [ History Confirmed 12/28/17] Ascorbic Acid TAB* [Vitamin C TAB*] 500 mg PO DAILY 12/28/17 [History Confirmed 12/28/17] Insulin ISOPH/REG 70/30 (*) [HumuLIN 70/30 (*)] 5 units SUBCUT BID 12/28/17 [ History Confirmed 12/28/17] Ipratropium Br (Nf)0.03% Nasal [Ipratropium [place]] 0.06 % BOTH NARES DAILY 08/09 [History Confirmed 12/28/17] Metoprolol Tartrate TAB* [Lopressor TAB*] 50 mg PO DAILY 12/28/17 [History Confirmed 12/28/17] Protein Supplement [Promod] 946 ml PO DAILY 12/28/17 [History Confirmed 12/28/17 ] Tofacitinib Citrate [Xeljanz] 5 mg PO BID 12/28/17 [History Confirmed 12/28/17] Torsemide TAB* [Demadex*] 10 mg PO DAILY 12/28/17 [History Confirmed 12/28/17] amLODIPine TAB* [Norvasc 5 mg TAB*] 5 mg PO DAILY 12/28/17 [History Confirmed ] PMH/Surg Hx/FS Hx/Imm Hx Endocrine/Hematology History: Reports: Hx Anticoagulant Therapy, Hx Blood Transfusions, Hx Diabetes, Hx Thyroid Disease, Hx Anemia, 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 Denies: Hx Systemic Lupus Erythematosus Cardiovascular History: Reports: Hx Angina, Hx Auto Implanted Cardiovert Defib, Hx Congestive Heart Failure, Hx Coronary Artery Disease, Hx Deep Vein Thrombosis - Man-made clot caused by nurse 40+ years ago, Hx Hypercholesterolemia, Hx Hypertension, Hx Pacemaker/ICD, Hx Valvular Heart Disease, Other Cardiovascular Problems/Disorders - Aortic valve replacement, bradycardia, cardiac catherization Denies: Hx Myocardial Infarction, Hx Rheumatic Fever, Hx Syncope Respiratory History: Reports: Hx Asthma, Hx Chronic Obstructive Pulmonary Disease (COPD), Hx Pneumonia Denies: Hx Lung Cancer, Hx Sleep Apnea GI History: Reports: Hx Ulcer - Peptic ulcer disease, Other GI Disorders - gastric bypass Denies: Hx Gastroesophageal Reflux Disease History: Reports: Other Problems/Disorders - UTIs, CKD Denies: Hx Kidney Stones, Hx Renal Disease Musculoskeletal History: Reports: Hx Arthritis, Hx Rheumatoid Arthritis, Hx Back Problems, Hx Osteoporosis Denies: Hx Gout, Hx Orthopedic Injury Sensory History: Reports: Hx Cataracts, Hx Contacts or Glasses, Other Sensory Impairments - Retinoplasty Denies: Hx Hearing Aid, Hx Hearing Problem Opthamlomology History: Reports: Hx Cataracts, Hx Contacts or Glasses, Other Sensory Impairments - Retinoplasty Neurological History: Denies: Hx Dementia, Hx Developmental Delay, Hx Headaches, Hx Migraine, Hx Nerve Disease, Hx Seizures, Hx Spinal Cord Injury, Hx Transient Ischemic Attacks (TIA), Other Neuro Impairments/Disorders Psychiatric History: Reports: Hx Depression - Cancer History Cancer Type, Location and Year: Two sisters had breast cancer Hx Chemotherapy: No Hx Radiation Therapy: No - Surgical History Surgery Procedure, Year, and Place: Hysterectomy. Appendectomy. Tonsillectomy. Bilateral Knee Arthroscopy. Diabetic Retinopathy-eye surgery. GASTRIC BYPASS. Bilateral Cataract removal. Sinus Surgery. Florentin-en-y gastric bypass, 2007. Cholecystecomy 2009. Carpal Tunnel Surgery. Aortic Valve replacement, 2016, [facility] Hx Anesthesia Reactions: No - Immunization History Date of Tetanus Vaccine: utd Date of Influenza Vaccine: utd Infectious Disease History: No Infectious Disease History: Reports: Hx Clostridium Difficile - History Denies: Hx Hepatitis, Hx Human Immunodeficiency Virus (HIV), Hx of Known/ Suspected MRSA, Hx Shingles, Hx Tuberculosis, Hx Known/Suspected VRE, Hx Known/ Suspected VRSA, History Other Infectious Disease, Traveled Outside the [place] in Last 30 Days - Family History Known Family History: Positive: Cardiac Disease, Diabetes, Other - Breast Cancer - Social History Alcohol Use: Rare Hx Substance Use: No Substance Use Type: Reports: None Hx Tobacco Use: Yes - quit > 20 yrs ago Smoking Status (MU): Former Smoker Type: Cigarettes Have You Smoked in the Last Year: No Review of Systems Negative: Fever, Chills Positive: Epistaxis Cardiovascular: Negative Respiratory: Negative Positive: Diarrhea Skin: Negative Neurological: Negative All Other Systems Reviewed And Are Negative: Yes Physical Exam - Summary Physical Exam Summary: Appearance: Ill-appearing, mild distress Skin: warm, dry, slight pallor Head/face: normal Eyes: EOMI, NEMO ENT: Active bleeding from right nare, red blood Neck: supple, non-tender Respiratory: Fine crackles in the lungs Cardiovascular: RRR, pulses symmetrical Abdomen: non-tender, soft Bowel: present Musculoskeletal: normal, strength/ROM intact Neuro: normal, sensory motor intact, A&Ox3 Triage Information Reviewed: Yes Vital Signs On Initial Exam: Initial Vitals Temp Pulse Resp BP Pulse Ox 98.1 F 67 19 144/50 99 12/28/17 14:08 12/28/17 14:08 12/28/17 14:08 12/28/17 14:08 12/28/17 14:08 Vital Signs Reviewed: Yes Procedures - Procedure Summary Procedure Summary: Management of epistaxis: Patient had active bleeding through one or both naris. She was packed bilaterally with cotton soaked with Afrin. This did not seem to significantly slow the bleeding. She continued to have large clots out her mouth. A Murocel packing was placed in the left and there which slowed the bleeding over the course of about one half hour. She bled after this and it was decided that she should be packed bilaterally. She was then packed bilaterally with cotton soaked with 1 g of tranexamic acid. This also failed to control the bleeding. Bilateral Rhino Rocket 5.5 cm packings were placed and inflated with saline. This controlled her bleeding. She tolerated this with some discomfort. The bleeding has slowed. She will require ICU observation for further bleeding. Diagnostics - Vital Signs Vital Signs Temp Pulse Resp BP Pulse Ox 12/28/17 14:08 98.1 F 67 19 144/50 99 - Laboratory Result Diagrams: 12/28/17 17:41 12/28/17 17:41 Lab Statement: Any lab studies that have been ordered have been reviewed, and results considered in the medical decision making process. Re-Evaluation - Re-Evaluation First Eval Re-Evaluation Time: 17:10 Change: Improved Comment: Nosebleed has stopped. EENT Course/Dx - Course Course Of Treatment: Patient with second visit of the day for epistaxis. I tried to control her anteriorly with Afrin and tranexamic acid packing however this did little. She required bilateral Rhino Rocket packing placements. You know some throat surgeon was contacted and wishes to have the patient placed in the ICU. He will come in and take to the operating room should she continue to bleed. She has been controlled since packing placement. Discussed with the hospitalist who will admit. The patient's hemoglobin actually went up very slightly since earlier today despite a large amount of bleeding. We do expect this to fall. Her platelets have been normal in the 180s. She typically is transfused weekly. I did talk with the printer helper earlier in the day and they were expecting outpatient follow-up. They likely will see her inpatient. - Differential Diagnoses Differential Diagnoses: Other - Blood dyscrasia, posterior versus anterior epistaxis, anemia/blood loss - Diagnoses Provider Diagnoses: Posterior epistaxis, Anemia - Provider Notifications Discussed Care Of Patient With: Thierno Jarrett Time Discussed With Above Provider: 14:42 Instructed by Provider To: Other - I discussed with Dr. Jarrett who will follow up with pt. [17:15] I discussed with Dr. Mott, ENT, who reports he either wants to take the pt to the OR if she re-bleeds or watch her in the ICU overnight. - Critical Care Time Critical Care Time: 30-74 min - CCT is EXCLUSIVE of separately billable procedures Discharge - Sign-Out/Discharge Documenting (check all that apply): Patient Departure - Admit to [facility] - Discharge Plan Condition: Guarded Disposition: ADMITTED TO [facility] Referrals: Vanesa Alexandra, PHYSICAL INSTRUCTOR [Primary Care Provider] - - Billing Disposition and Condition Condition: GUARDED Disposition: Admitted to [facility] - Attestation Statements Document Initiated by Mayra: Yes Documenting Scribe: Ebonie Aggarwal Provider For Whom Mayra is Documenting (Include Credential): Michael Brian MD Scribe Attestation: Ebonie Brown, scribed for Michael Brian MD on 12/28/17 at 1815. Scribe Documentation Reviewed: Yes Provider Attestation: The documentation as recorded by the Ebonie jc accurately reflects the service I personally performed and the decisions made by , Michael Brian MD
[2017-12-28] MEDS ORDERED: Oxymetazoline 0.05% NASAL SPR* 15 ML BTL ONE ×2 (14:25→20:09)
[2017-12-28] MEDS ORDERED: Tranexamic Acid 1,000 MG/10 ML SDV IV ONE ×2 (16:40)
[2017-12-28] MEDS ORDERED: ceFAZolin 1 GM ADVAN(*) 1 GM in NS 0.9% 50 ML* 50 ML IVPB ONE (17:20)
[2017-12-28 17:58] LABS: ABS Basophils 0.1 10^3/ul (0-0.2); ABS Eosinophils 0.2 10^3/ul (0-0.6); ABS Lymphocytes 0.6 10^3/ul (1.0-4.8); ABS Monocytes 0.4 10^3/ul (0-0.8); ABS Neutrophils 6.7 10^3/ul (1.5-7.7); ABS Nucleated RBC 0 10^3/ul; Eosinophil % 2.7 % (0-6); Hematocrit 29 % (35-47); Hemoglobin 9.9 g/dl (12.0-16.0); Lymphocyte % 7.5 % (25-47); Mean Corpuscular HGB Conc 34 g/dl (31-36); Mean Corpuscular Hemoglobin 33 pg (27-31); Mean Corpuscular Volume 95 fL (80-97); Nucleated Red Blood Cells % 0; Platelet Count 182 10^3/ul (150-450); Red Blood Count 3.03 10^6/ul (4.00-5.40); Red Cell Distribution Width 15 % (10.5-15)
[2017-12-28 17:59] LABS: INR 0.96 (0.77-1.02)
[2017-12-28] MEDS ORDERED: ceFAZolin 1 GM in Dextrose (*) 1 GM/50 ML BAG IVPB ONE ×2 (17:59→18:15)
[2017-12-28] MEDS ORDERED: Tranexamic Acid 1,000 MG in NS 0.9% 50 ML IV ONE (18:00)
[2017-12-28 18:08] LABS: EGFR Non-African American 44.7 (>60)
[2017-12-28] MEDS ORDERED: Albuterol 2.5 MG/3 ML NEB.SOL* (0.083%) INH PRN (18:18)
[2017-12-28] MEDS ORDERED: Diphenoxylat/Atrop 2.5-0.025M* 1 TAB PO PRN (18:18)
[2017-12-28] MEDS ORDERED: Dextrose 50% Syringe 50 ML* 25 GM/50 ML SYRINGE IV PUSH PRN (18:18)
[2017-12-28] MEDS ORDERED: Albuterol HFA INHALER* 8 gm MDI INH PRN (18:18)
[2017-12-28] MEDS ORDERED: hydrALAZINE IV* 20 MG/ML VIAL IV SLOW PU PRN (18:24)
[2017-12-28] MEDS ORDERED: Lidocain 1% EPI 1:100,000 * 30 ML MDV ONE (20:09)
[2017-12-28] MEDS ORDERED: Lidocaine 4% TOPICAL* 50 ML TOP.SOLN ONE (20:09)
[2017-12-28] MEDS ORDERED: Gelfoam Sponge SIZE 100* SPONGE ONE (20:15)
[2017-12-28] MEDS ORDERED: Propofol* 10 MG/ML 20 ML BTL IV PUSH ONE (20:22)
[2017-12-28] MEDS ORDERED: Lidocaine 2% PF * 5 ML VIAL ONE (20:22)
[2017-12-28] MEDS ORDERED: Succinylcholine* 20 MG/ML 10 ML VIAL ONE (20:23)
[2017-12-28] MEDS ORDERED: fentaNYL* 50 MCG/ML 2 ML VIAL (100 MCG VIAL) ONE (20:25)
[2017-12-28] MEDS ORDERED: Midazolam* 1 MG/ML 2 ML VIAL (2 MG) ONE (20:25)
[2017-12-28] MEDS ORDERED: Phenylephrine INJ* 10 MG/ML 1 ML VIAL (10 MG) ONE (20:26)
[2017-12-28] MEDS ORDERED: Etomidate* 2 MG/ML 10 ML VIAL ONE (21:03)
--- NOTE | 2017-12-28 21:10 | HP ---
CC: Vanesa Alexandra NP; Dr. Shelley; Dr. Broderick; Dr. Mott * HISTORY AND PHYSICAL: DATE OF ADMISSION: 12/28/17 PRIMARY CARE PROVIDER: Vanesa Alexandra NP. CHIEF COMPLAINT: Nosebleed. HISTORY OF PRESENT ILLNESS: Brittanie Carter is a 77-year-old female with history of polyclonal hypergammaglobulinemia as well as anemia, status post transfusions in the past, the last one in the beginning of 2017, who presented today complaining of epistaxis. Initially the epistaxis was able to be controlled and the patient was discharged home. Unfortunately, she returned within a couple of hours with the recurrence of nosebleed. Currently, she has posterior packing in place. The patient was treated with tranexamic acid intravenously and she still continues to slowly ooze despite the packing in place. She is going to be admitted to the intensive care unit with the diagnosis of severe epistaxis. PAST MEDICAL HISTORY: 1. History of status post transaortic valve replacement in the past. 2. History of coronary artery disease. 3. History of polyclonal hypergammaglobulinemia. 4. History of chronic anemia with multiple transfusions in the past. It was noted that since 2014, the patient was transfused a total of 8 units, and the last 2 units were documented in May 2017. 5. History of COPD on room air. 6. History of chronic atrial fibrillation, not anticoagulated. 7. History of severe peptic ulcer disease. 8. History of chronic kidney disease stage 3. 9. Rheumatoid arthritis. 10. Hypothyroidism. 11. Hypertension. 12. Hyperlipidemia. 13. History of status post pacemaker placement. 14. History of Florentin-en-Y gastric bypass surgery in the past. 15. Diabetic retinopathy. 16. 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 CURRENT MEDICATIONS: Include: 1. Torsemide 10 mg daily. 2. Guaifenesin ER 600 mg daily. 3. Ferrous sulfate 325 mg daily. 4. Lomotil 1 tablet daily p.r.n. 5. Vitamin C 500 units daily. 6. Tofacitinib citrate 5 mg b.i.d. 7. Hydroxychloroquine 400 mg daily. 8. Vitamin B12 of 500 mcg b.i.d. 9. Zocor 40 mg daily. 10. Levothyroxine 25 mcg daily. 11. Albuterol inhaler on a p.r.n. basis. 12. Albuterol nebulizer on a p.r.n. basis. 13. Coreg 12.5 mg b.i.d. 14. Protonix 40 mg daily. 15. Nitroglycerin on a p.r.n. basis. 16. Insulin 70/30 of 5 units b.i.d. 17. Aspirin 81 mg daily. 18. Lisinopril 2.5 mg daily. 19. Calcium carbonate 1000 mg b.i.d. 20. Caltrate plus vitamin D 1 tablet b.i.d. 22. ProMod 946 mL daily. 23. Amlodipine 5 mg daily. ALLERGIES: Include CODEINE, LEVOFLOXACIN, and SULFA. FAMILY HISTORY: Positive for mother who in her 80s secondary to heart disease. Father in his 70s secondary to heart disease. SOCIAL HISTORY: The patient lives at home with her son, Eliud Caretr, who is her healthcare proxy. She uses a cane and walker at home. She quit smoking over 40 years ago. Denies any alcohol or drug use. The patient wishes to be a full code. REVIEW OF SYSTEMS: Please see history of present illness. In addition to the above mentioned, the patient stated that she did not have history of recent nosebleeds. She had nosebleeds when she was younger, but none currently. The current nosebleed started happening today in the morning. The patient stated that she occasionally has a bad leg edema and today it is more than before. She denies any shortness of breath. She denies any chest pain. Her appetite has been good and her bowel movements have been regular. She denies any urinary symptoms. All the remaining 12 systems were reviewed with the patient and were otherwise negative. PHYSICAL EXAMINATION GENERAL: The patient is a very pleasant 77-year-old female, who is in no acute distress. Alert, awake, and oriented x3. The patient appears chronically ill. VITAL SIGNS: Blood pressure of 144/50, heart rate of 67 and regular, respiratory rate of 19, oxygen saturation 99% on room air, temperature of 98.1. HEENT: Head: Atraumatic, normocephalic. Eyes: Pupils are equal and reactive to light and accommodation. Oropharynx with blood in it. The patient spits blood multiple times during the evaluation. Her nose is occluded with packing in place. There is blood slowly oozing from the left nostril. NECK: Supple. No JVD. No bruits bilaterally. RESPIRATORY: Crackles and fine bibasilar wheezes. CARDIOVASCULAR: Regular rate and rhythm. No murmur. ABDOMEN: Soft, nontender. Bowel sounds present in all 4 quadrants. EXTREMITIES: There is +1 pitting bilateral ankle edema, left more than right. There is no clubbing or cyanosis. Pulses are +2 bilaterally. PSYCHIATRIC EVALUATION: Alert, oriented x3 with no evidence of anxiety or depression. SKIN: No ecchymotic areas or rashes noted. Pallor noted. LABORATORY DATA: Showed white blood cell count of 8.0, hemoglobin 9.9, hematocrit 29, and platelets 182,000. INR was 0.96. PTT of 31.2. Sodium 137, potassium 4.9, chloride 110, carbon dioxide 20, BUN 34, creatinine 1.17. Random glucose level was 328. Liver function tests were unremarkable. C - reactive protein of 7. ASSESSMENT AND PLAN: 1. Severe epistaxis. Dr. Mott will see the patient after admission. Due to posterior packing, the patient is going to be admitted to the intensive care unit for frequent monitoring. She is going to be placed n.p.o. apart from ice chips. She is going to be placed on Protonix intravenously while on a very limited diet. 2. For the patient's diabetes, the patient is going to be placed on fingersticks every 6 hours and insulin sliding scale. 3. For hypothyroidism, Synthroid is going to be continued. 4. In regards to the patient's anemia, hemoglobin and hematocrit is at this point baseline. We will hold ferrous sulfate when on limited diet. 5. Hyperlipidemia. Simvastatin is going to be held. 6. In regards to coronary artery disease, the patient's Coreg is going to be continued. Aspirin is going to be held due to epistaxis. 7. History of peptic ulcer disease. The patient is going to be placed on Protonix intravenously. 8. For DVT prophylaxis, the patient is going to be placed on sequential compression devices. Anticoagulants are contraindicated in this patient with severe epistaxis. 9. The patient's code status is full and her surrogate is her son, Eliud. TIME SPENT: Approximately 65 minutes were spent on admission of this patient, more than half that time was spent [id number] with the patient during the interview and physical exam. [id number] #: [id number] MTDD
[2017-12-28] MEDS ORDERED: Ondansetron INJ* 2 MG/ML VIAL ONE (21:20)
[2017-12-28] MEDS ORDERED: Acetaminophen IV 1GM/100ML * 1,000 MG/100 ML VIAL IVPB ONE (21:20)
[2017-12-28] MEDS ORDERED: Metoclopramide IV* 5 MG/ML 2 ML VIAL ONE (21:20)
[2017-12-28] MEDS ORDERED: Dexamethasone IV* 4 MG/ML 1 ML (4 MG) ONE (21:20)
[2017-12-28] MEDS: amLODIPine TAB* 5 MG PO SCH (21:33)
[2017-12-28] MEDS: Cyanocobalamin TAB* 500 MCG PO SCH (21:33)
[2017-12-28] MEDS: Carvedilol TAB* 6.25 MG PO SCH (21:33)
[2017-12-28] MEDS ORDERED: Bacitracin OINTMENT* 0.5% 0.5 oz TUBE ONE (21:52)
[2017-12-28] MEDS ORDERED: Acetaminophen IV 1GM/100ML * 100 ML ONE (21:54)
--- NOTE | 2017-12-28 22:15 | PN ---
Hospitalist Progress Note Date of Service: 12/28/[address] hills Post-op plan to admit overnight to icu patient. If no further bleeding overnight could be d/c home in am. Will need close follow up with ent this week and abx therapy for gram positive coverage ancef started tonight. will keep hob 30. Dr hills available tomorrow for questions.
[2017-12-28] MEDS: NS 0.9% 1000 ML* 1,000 ML IV SCH (22:30)
[2017-12-28] MEDS: Pantoprazole IV* 40 MG IV SCH (22:45)
[2017-12-28] MEDS: Insulin LISPRO* 1 UNITS UNIT SUBCUT SCH (22:48)
[2017-12-29] MEDS: Insulin LISPRO* 1 UNITS UNIT SUBCUT SCH ×4 (00:41→17:24)
[2017-12-29] MEDS ORDERED: DiMENhydriNATE IV* 50 MG/ML VIAL IV PUSH PRN (01:00)
[2017-12-29] MEDS ORDERED: Naloxone* 0.4 MG/ML 1 ML VIAL IV PRN (01:00)
[2017-12-29] MEDS: ceFAZolin 1 GM in Dextrose (*) 1 GM/50 ML BAG IVPB SCH ×3 (01:54→17:22)
[2017-12-29] MEDS: Levothyroxine TAB* 25 MCG TAB PO SCH (05:31)
[2017-12-29 05:45] LABS: ABS Basophils 0 10^3/ul (0-0.2); ABS Eosinophils 0 10^3/ul (0-0.6); ABS Lymphocytes 0.4 10^3/ul (1.0-4.8); ABS Monocytes 0.2 10^3/ul (0-0.8); ABS Neutrophils 6.7 10^3/ul (1.5-7.7); ABS Nucleated RBC 0 10^3/ul; Eosinophil % 0.1 % (0-6); Hematocrit 22 % (35-47); Hemoglobin 7.3 g/dl (12.0-16.0); Lymphocyte % 5.1 % (25-47); Mean Corpuscular HGB Conc 33 g/dl (31-36); Mean Corpuscular Hemoglobin 32 pg (27-31); Mean Corpuscular Volume 96 fL (80-97); Mean Platelet Volume 9.3 fL (7.4-10.4); Nucleated Red Blood Cells % 0; Platelet Count 166 10^3/ul (150-450); Red Cell Distribution Width 15 % (10.5-15); White Blood Count 7.3 10^3/ul (3.5-10.8)
[2017-12-29 06:40] LABS: EGFR Non-African American 47.5 (>60)
--- NOTE | 2017-12-29 08:45 | PN ---
Subjective Date of Service: 12/29/17 Interval History: Pt is feeling ok today but when I mentioned possibly discharge today she states she is nervous to go home. She has not been out of bed yet today. She also states she is not sure she will be able to eat because of a feeling of blood and mucous stuck to the roof of her mouth. Objective Active Medications: Albuterol (Ventolin 2.5 Mg/3 Ml Neb.Rivka*) 2.5 mg INH QID PRN PRN Reason: SOB/WHEEZING Albuterol (Ventolin Hfa Inhaler*) 2 puff INH Q6H PRN PRN Reason: SHORTNESS OF BREATH Amlodipine Besylate (Norvasc Tab*) 5 mg PO DAILY [facility] Last Admin: 12/28/17 21:33 Dose: Not Given Carvedilol (Coreg Tab*) 12.5 mg PO BID [facility] Last Admin: 12/28/17 21:33 Dose: Not Given Cyanocobalamin (Vitamin B12 Tab*) 500 mcg PO BID [facility] Last Admin: 12/28/17 21:33 Dose: Not Given Dextrose (D50w Syringe 50 Ml*) 12.5 gm IV PUSH .FOR FS < 60 - SS PRN PRN Reason: FS < 60 Dimenhydrinate (Dramamine Iv*) 25 mg IV PUSH ONCE PRN PRN Reason: NAUSEA/VOMITING Diphenoxylate HCl/Atropine (Lomotil Tab*) 1 tab PO DAILY PRN PRN Reason: DIARRHEA Guaifenesin (Mucinex*) 600 mg PO DAILY [facility] Hydralazine HCl (Apresoline Iv*) 5 mg IV SLOW PU Q6H PRN PRN Reason: BLOOD PRESSURE Hydroxychloroquine Sulfate (Plaquenil Tab*) 400 mg PO DAILY [facility] Sodium Chloride (Ns 0.9% 1000 Ml*) 1,000 mls @ 50 mls/hr IV .PER RATE [facility] Last Admin: 12/28/17 22:30 Dose: 50 mls/hr Cefazolin Sodium/Dextrose (Kefzol 1 Gm In Dextrose Duplex (*)) 1 gm in 50 mls @ 200 mls/hr IVPB Q8H [facility] Last Admin: 12/29/17 01:54 Dose: 200 mls/hr Insulin Human Lispro (Humalog*) 0 units SUBCUT Q6HR [facility]; Protocol Last Admin: 12/29/17 06:44 Dose: 4 unit Ipratropium [place] (Ipratropium [place]) 1 ml BOTH NARES DAILY [facility] Levothyroxine Sodium (Synthroid Tab*) 25 mcg PO 0600 [facility] Last Admin: 12/29/17 05:31 Dose: 25 mcg Lisinopril (Prinivil Tab*) 2.5 mg PO DAILY [facility] Morphine Sulfate (Morphine Vial*) 1 mg IV Q4H PRN PRN Reason: PAIN - MILD Naloxone HCl (Narcan*) 0.08 mg IV Q2M PRN PRN Reason: severe induced resp depression Pantoprazole Sodium (Protonix Iv*) 40 mg IV DAILY [facility] Last Admin: 12/28/17 22:45 Dose: 40 mg Torsemide (Demadex*) 10 mg PO DAILY [facility] Vital Signs - 8 hr 12/29/17 12/29/17 12/29/17 01:00 01:01 02:00 Pulse Rate 60 60 60 Respiratory 7 8 10 Rate Blood Pressure 118/47 116/45 (mmHg) O2 Sat by Pulse 96 96 98 Oximetry 12/29/17 12/29/17 12/29/17 02:01 03:00 03:01 Pulse Rate 60 61 61 Respiratory 3 2 11 Rate Blood Pressure 134/47 (mmHg) O2 Sat by Pulse 98 99 98 Oximetry 12/29/17 12/29/17 12/29/17 04:00 04:01 05:00 Pulse Rate 60 60 60 Respiratory 3 6 13 Rate Blood Pressure 128/46 130/44 (mmHg) O2 Sat by Pulse 98 98 99 Oximetry 12/29/17 12/29/17 12/29/17 05:01 06:00 06:01 Pulse Rate 68 60 60 Respiratory 3 17 10 Rate Blood Pressure 133/43 (mmHg) O2 Sat by Pulse 98 98 98 Oximetry 12/29/17 12/29/17 07:00 07:01 Pulse Rate 60 60 Respiratory 10 7 Rate Blood Pressure 147/46 (mmHg) O2 Sat by Pulse 97 98 Oximetry Oxygen Devices in Use Now: None Appearance: Eldery very pale female sitting up in bed, NAD Eyes: No Scleral Icterus Ears/Nose/Mouth/Throat: Mucous Membranes Moist, - - Nothing noted on palate Respiratory: Symmetrical Chest Expansion and Respiratory Effort, Clear to Auscultation Cardiovascular: NL Sounds; No Murmurs; No JVD, No Edema, - - II/ systolic murmur heard best at the RUSB Abdominal: NL Sounds; No Tenderness; No Distention Extremities: No Clubbing, Cyanosis Skin: No Nodules or Sclerosis Neurological: Alert and Oriented x 3 Result Diagrams: 12/29/17 05:30 12/29/17 05:30 Assess/Plan/Problems-Billing Ms Carter is a 77 yo F who has a h/o CAD, afib, COPD, polyclonal hypergammaglobulinemia, chronic anemia, CKD stage III and HTN who presented to the ER with c/o epistaxis. - Patient Problems (1) Posterior epistaxis Current Visit: Yes Status: Acute Code(s): R04.0 - EPISTAXIS SNOMED Code(s) : 192092733 Comment: The patient was evaluated by Dr. Mott and taken to the OR last evening. She currently has packing in place. No bleeding noted overnight. Will continue cefazolin for now. Will need to discuss with ENT about how long to remain on prophylaxis Abx. (2) Acute blood loss anemia Current Visit: Yes Status: Acute Code(s): D62 - ACUTE POSTHEMORRHAGIC ANEMIA SNOMED Code(s): 372174214 Comment: Secondary to epistaxis. Will transfuse 1 unit PRBC today. Repeat H/ H tomorrow. Pt states she feels weak and is nervous to go home today. (3) Afib Current Visit: Yes Status: Chronic Code(s): I48.91 - UNSPECIFIED ATRIAL FIBRILLATION SNOMED Code(s): 61386206 Comment: Paced on tele. No anticoagulation secondary to peptic ulcer disease and chronic anemia. Continue coreg. (4) Type II diabetes mellitus Current Visit: Yes Status: Acute Comment: The patient's humulin 70/30 was placed on hold. Continue lispro sliding scale. Sugars have been quite high so will resume usual dose. (5) COPD (chronic obstructive pulmonary disease) Current Visit: Yes Status: Acute Code(s): J44.9 - CHRONIC OBSTRUCTIVE PULMONARY DISEASE, UNSPECIFIED SNOMED Code(s): 78505049 Comment: No signs of exacerbation. Will continue prn albuterol. (6) CHF (congestive heart failure) Current Visit: Yes Status: Acute Code(s): I50.9 - HEART FAILURE, UNSPECIFIED SNOMED Code(s): 19323038 Comment: Chronic diastolic CHF and not in exacerbation at this time. Will continue continue coreg and torsemide. (7) CAD (coronary artery disease) Current Visit: Yes Status: Chronic Code(s): I25.10 - ATHSCL HEART DISEASE OF [place] CORONARY ARTERY W/O ANG PCTRS SNOMED Code(s): 19339372 Comment: No issues at this time. Continue coreg and lisinopril. ASA on hold secondary to epistaxis. (8) HTN (hypertension) Current Visit: Yes Status: Chronic Code(s): I10 - ESSENTIAL (PRIMARY) HYPERTENSION SNOMED Code(s): 06344966 Comment: BP has fluctuated some. Continue home medication regimen and monitor BP. (9) Hypothyroid Current Visit: Yes Status: Chronic Code(s): E03.9 - HYPOTHYROIDISM, UNSPECIFIED SNOMED Code(s): 84475717 Comment: Continue home dose of synthroid. (10) HLD (hyperlipidemia) Current Visit: Yes Status: Chronic Code(s): E78.5 - HYPERLIPIDEMIA, UNSPECIFIED SNOMED Code(s): 92914083 Comment: Resume statin on d/c. (11) Rheumatoid arthritis Current Visit: Yes Status: Chronic Code(s): M06.9 - RHEUMATOID ARTHRITIS, UNSPECIFIED SNOMED Code(s): 46941981 Comment: Continue hydroxychloroquine and hold xeljanz. (12) DVT prophylaxis Current Visit: Yes Status: Acute Code(s): XLL5348 - SNOMED Code(s): 750752265 Comment: No chemical prophylaxis secondary to severe nose bleed, continue SCDs. (13) Full code status Current Visit: Yes Status: Chronic Code(s): Z78.9 - OTHER SPECIFIED HEALTH STATUS SNOMED Code(s): 115930819
[2017-12-29] MEDS ORDERED: IPRATROPIUM BR 0.03% BOTH NARES SCH (09:00)
[2017-12-29] MEDS: Hydroxychloroquine TAB* 200 MG PO SCH (09:37)
[2017-12-29] MEDS: Carvedilol TAB* 6.25 MG PO SCH ×2 (09:37→20:22)
[2017-12-29] MEDS: Cyanocobalamin TAB* 500 MCG PO SCH ×2 (09:38→20:22)
[2017-12-29] MEDS: Lisinopril TAB* 5 MG PO SCH (09:38)
[2017-12-29] MEDS: Torsemide TAB* 20 MG PO SCH (09:38)
[2017-12-29] MEDS: amLODIPine TAB* 5 MG PO SCH (09:38)
[2017-12-29] MEDS: Insulin ISOPH/REG 70/30 (*) 1 UNITS UNIT SUBCUT SCH ×2 (09:39→20:22)
[2017-12-29] MEDS: Pantoprazole IV* 40 MG IV SCH (09:39)
[2017-12-29] MEDS: guaiFENesin ER TAB 600 MG PO SCH (09:39)
[2017-12-29] MEDS: NS 0.9% 1000 ML* 1,000 ML IV SCH (10:35)
--- NOTE | 2017-12-29 19:34 | OP ---
DATE OF OPERATION: 12/28/17 - ROOM #[id number] DATE OF : 38 SURGEON: Abdulkadir Mott MD CROOK OPERATOR: None. ANESTHESIA: General. PRE-OP DIAGNOSIS: Epistaxis. POST-OP DIAGNOSIS: Epistaxis. OPERATIVE PROCEDURE: Bilateral endoscopic control of epistaxis. ESTIMATED BLOOD LOSS: Less than 10 cc. FINDINGS: Possible source on the undersurface of the left inferior turbinate, another possible source at the root of the right middle turbinate. INDICATION: This is a 77-year-old woman who was admitted through the emergency department to the ICU for severe recurrent epistaxis. She had bilateral balloon packs placed in the ER, but had continued bleeding through those. The ER doctor had found source earlier in the day that he had cauterized and bleeding at this time seemed to be more posterior. The decision was made given the fact that the patient was actively bleeding through packs, to bring her to the operating room to explore the nasal cavities, remove packing, cauterize hopefully a source and control the bleeding. DESCRIPTION OF PROCEDURE: The patient was brought to the operating room. General anesthesia was induced, an oral endotracheal tube was placed. The patient was draped, the time-out was performed. The patient's packs were removed. The zero degree rigid endoscope was used to perform bilateral nasal endoscopy, there were significant clots filling both nasal cavities. There was evidence of prior sinus surgery. The clots were removed. There was some active bleeding initially from the undersurface of the left inferior turbinate although the exact spot could not be visualized immediately. The bleeding did stop once the nose was decongested. Both nasal cavities were explored. There was mucosal trauma in the right nasal cavity at the root of the right middle turbinate this was cauterized. On the left side the whole under-surface and insertion of the inferior turbinate was cauterized. The posterior point of insertion of the inferior turbinate on the left was also cauterized. Fibrillar was then packed into both nasal cavities. On the left side, it was packed underneath the inferior turbinate and on the right side, it was packed against the area that had been cauterized at the root of the middle turbinate, 10 cm Merocel packs were then placed bilaterally underneath to support these. The patient was then returned to the care of the anesthesiologist and extubated and delivered into the PACU in stable condition. [id number]/CPS #: [id number] [facility] CENTERJanteh
[2017-12-29] MEDS: Morphine VIAL* 4 MG/ML VIAL (1 ml vial) IV PRN (22:30)
[2017-12-30] MEDS: Insulin LISPRO* 1 UNITS UNIT SUBCUT SCH ×4 (00:15→17:36)
[2017-12-30] MEDS: ceFAZolin 1 GM in Dextrose (*) 1 GM/50 ML BAG IVPB SCH ×3 (02:18→17:36)
[2017-12-30] MEDS: Levothyroxine TAB* 25 MCG TAB PO SCH (06:20)
[2017-12-30] MEDS: Pantoprazole IV* 40 MG IV SCH (08:36)
[2017-12-30] MEDS: guaiFENesin ER TAB 600 MG PO SCH (08:36)
[2017-12-30] MEDS: amLODIPine TAB* 5 MG PO SCH (08:36)
[2017-12-30] MEDS: Lisinopril TAB* 5 MG PO SCH (08:36)
[2017-12-30] MEDS: Hydroxychloroquine TAB* 200 MG PO SCH (08:36)
[2017-12-30] MEDS: Torsemide TAB* 20 MG PO SCH (08:36)
[2017-12-30] MEDS: Cyanocobalamin TAB* 500 MCG PO SCH ×2 (08:37→20:17)
[2017-12-30] MEDS: Carvedilol TAB* 6.25 MG PO SCH ×2 (08:37→20:17)
[2017-12-30] MEDS: Insulin ISOPH/REG 70/30 (*) 1 UNITS UNIT SUBCUT SCH ×3 (08:53→20:29)
--- NOTE | 2017-12-30 10:11 | PN ---
Subjective Date of Service: 12/30/17 Interval History: No overnight events. Glucose low this am - seemed to be asymptomatic. Held her insulin this. Very tearful and anxious about going home. Afraid that she will end up in the ER. This AM started having mild amount of bloody drainage from nose that seems to have stopped. Yesterday it was clear. Is on liquid diet. Ambulating with assistance. No CP. No SOB. Objective Active Medications: Albuterol (Ventolin 2.5 Mg/3 Ml Neb.Rivka*) 2.5 mg INH QID PRN PRN Reason: SOB/WHEEZING Albuterol (Ventolin Hfa Inhaler*) 2 puff INH Q6H PRN PRN Reason: SHORTNESS OF BREATH Amlodipine Besylate (Norvasc Tab*) 5 mg PO DAILY [facility] Last Admin: 12/30/17 08:36 Dose: 5 mg Carvedilol (Coreg Tab*) 12.5 mg PO BID [facility] Last Admin: 12/30/17 08:37 Dose: 12.5 mg Cyanocobalamin (Vitamin B12 Tab*) 500 mcg PO BID [facility] Last Admin: 12/30/17 08:37 Dose: 500 mcg Dextrose (D50w Syringe 50 Ml*) 12.5 gm IV PUSH .FOR FS < 60 - SS PRN PRN Reason: FS < 60 Dimenhydrinate (Dramamine Iv*) 25 mg IV PUSH ONCE PRN PRN Reason: NAUSEA/VOMITING Diphenoxylate HCl/Atropine (Lomotil Tab*) 1 tab PO DAILY PRN PRN Reason: DIARRHEA Guaifenesin (Mucinex*) 600 mg PO DAILY [facility] Last Admin: 12/30/17 08:36 Dose: 600 mg Hydralazine HCl (Apresoline Iv*) 5 mg IV SLOW PU Q6H PRN PRN Reason: BLOOD PRESSURE Hydroxychloroquine Sulfate (Plaquenil Tab*) 400 mg PO DAILY [facility] Last Admin: 12/30/17 08:36 Dose: 400 mg Sodium Chloride (Ns 0.9% 1000 Ml*) 1,000 mls @ 50 mls/hr IV .PER RATE [facility] Last Admin: 12/29/17 10:35 Dose: 50 mls/hr Cefazolin Sodium/Dextrose (Kefzol 1 Gm In Dextrose Duplex (*)) 1 gm in 50 mls @ 200 mls/hr IVPB Q8H [facility] Last Admin: 12/30/17 02:18 Dose: 200 mls/hr Insulin Human Isoph/Insulin Regular (Humulin 70/30 (*)) 5 units SUBCUT BID [facility] Last Admin: 12/30/17 08:53 Dose: Not Given Insulin Human Lispro (Humalog*) 0 units SUBCUT Q6HR [facility]; Protocol Last Admin: 12/30/17 06:21 Dose: Not Given Levothyroxine Sodium (Synthroid Tab*) 25 mcg PO 0600 [facility] Last Admin: 12/30/17 06:20 Dose: 25 mcg Lisinopril (Prinivil Tab*) 2.5 mg PO DAILY [facility] Last Admin: 12/30/17 08:36 Dose: 2.5 mg Morphine Sulfate (Morphine Vial*) 1 mg IV Q4H PRN PRN Reason: PAIN - MILD Last Admin: 12/29/17 22:30 Dose: 1 mg Naloxone HCl (Narcan*) 0.08 mg IV Q2M PRN PRN Reason: severe induced resp depression Pantoprazole Sodium (Protonix Iv*) 40 mg IV DAILY [facility] Last Admin: 12/30/17 08:36 Dose: 40 mg Torsemide (Demadex*) 10 mg PO DAILY [facility] Last Admin: 12/30/17 08:36 Dose: 10 mg Vital Signs - 8 hr 12/30/17 04:06 Temperature 98.4 F Pulse Rate 66 Respiratory 16 Rate Blood Pressure 132/48 (mmHg) O2 Sat by Pulse 100 Oximetry Oxygen Devices in Use Now: None Ears/Nose/Mouth/Throat: Mucous Membranes Moist, - - minimal amount of bloody drainage from left nare Respiratory: - - diminished breath sounds, poor aeration Cardiovascular: NL Sounds; No Murmurs; No JVD, - - soft murmur Abdominal: NL Sounds; No Tenderness; No Distention, No Hepatosplenomegaly Extremities: No Edema Neurological: Alert and Oriented x 3 Result Diagrams: 12/30/17 12:00 12/29/17 05:30 Assess/Plan/Problems-Billing Ms Carter is a 77 yo F who has a h/o CAD, afib, COPD, polyclonal hypergammaglobulinemia, chronic anemia, CKD stage III and HTN who presented to the ER with c/o epistaxis s/p endoscopic procedure with ENT - Patient Problems (1) Posterior epistaxis Current Visit: Yes Status: Acute Code(s): R04.0 - EPISTAXIS SNOMED Code(s) : 016969194 Comment: The patient was evaluated by Dr. Mott and taken to the OR 12/28. Packing has been removed, some bloody drainage this AM. Will continue cefazolin for now. Very tearful and upset about going home. Plan Continue to observe overnight to monitor for any further epistaxis. Dr. Mott to remove packing tomorrow prior to discharge Will obtain social work to help facilitate discharge. Will need family involved as well Continue Antibiotics while packing is in place Recommend continuing to hold baby aspirin for another 3-4 days before resuming (2) Acute blood loss anemia Current Visit: Yes Status: Acute Code(s): D62 - ACUTE POSTHEMORRHAGIC ANEMIA SNOMED Code(s): 703847185 Comment: Secondary to epistaxis. Received one unit on 12/31 Repeat labs appropriate rise Monitor (3) CHF (congestive heart failure) Current Visit: Yes Status: Acute Code(s): I50.9 - HEART FAILURE, UNSPECIFIED SNOMED Code(s): 69497714 Comment: Chronic diastolic CHF and not in exacerbation at this time. Will continue continue coreg and torsemide. (4) COPD (chronic obstructive pulmonary disease) Current Visit: Yes Status: Acute Code(s): J44.9 - CHRONIC OBSTRUCTIVE PULMONARY DISEASE, UNSPECIFIED SNOMED Code(s): 18582338 Comment: No signs of exacerbation. Will continue prn albuterol. (5) CAD (coronary artery disease) Current Visit: Yes Status: Chronic Code(s): I25.10 - ATHSCL HEART DISEASE OF [place] CORONARY ARTERY W/O ANG PCTRS SNOMED Code(s): 67339846 Comment: No issues at this time. Continue coreg and lisinopril. ASA on hold secondary to epistaxis. (6) HTN (hypertension) Current Visit: Yes Status: Chronic Code(s): I10 - ESSENTIAL (PRIMARY) HYPERTENSION SNOMED Code(s): 72120929 Comment: BP has fluctuated some. Continue home medication regimen and monitor BP. (7) Diabetes Current Visit: No Status: Chronic Priority: Medium Code(s): E11.9 - TYPE 2 DIABETES MELLITUS WITHOUT COMPLICATIONS SNOMED Code(s): 90819928 Comment: - Very labile. Low this AM Plan Advancing to diabetic diet. Change to Lispro AC and lower humulin dose (8) DVT prophylaxis Current Visit: Yes Status: Acute Code(s): QMM5145 - SNOMED Code(s): 083032934 Comment: No chemical prophylaxis secondary to severe nose bleed, continue SCDs. (9) Full code status Current Visit: No Status: Acute Code(s): Z78.9 - OTHER SPECIFIED HEALTH STATUS SNOMED Code(s): 865648240
[2017-12-30] MEDS: NS 0.9% 1000 ML* 1,000 ML IV SCH (10:42)
[2017-12-30 12:14] LABS: Hematocrit 28 % (35-47); Hemoglobin 9.4 g/dl (12.0-16.0)
[2017-12-30] MEDS ORDERED: Insulin ISOPH/REG 70/30 (*) 1 UNITS UNIT SUBCUT ONE (23:45)
[2017-12-31] MEDS: ceFAZolin 1 GM in Dextrose (*) 1 GM/50 ML BAG IVPB SCH ×2 (02:00→10:20)
[2017-12-31] MEDS: Morphine VIAL* 4 MG/ML VIAL (1 ml vial) IV PRN (02:55)
[2017-12-31] MEDS: Levothyroxine TAB* 25 MCG TAB PO SCH (05:53)
[2017-12-31] MEDS: Hydroxychloroquine TAB* 200 MG PO SCH (08:25)
[2017-12-31] MEDS: Insulin ISOPH/REG 70/30 (*) 1 UNITS UNIT SUBCUT SCH (08:25)
[2017-12-31] MEDS: Pantoprazole IV* 40 MG IV SCH (08:25)
[2017-12-31] MEDS: Insulin LISPRO* 1 UNITS UNIT SUBCUT SCH ×2 (08:25→12:16)
[2017-12-31] MEDS: Carvedilol TAB* 6.25 MG PO SCH (08:26)
[2017-12-31] MEDS: Torsemide TAB* 20 MG PO SCH (08:26)
[2017-12-31] MEDS: Cyanocobalamin TAB* 500 MCG PO SCH (08:26)
[2017-12-31] MEDS: Lisinopril TAB* 5 MG PO SCH (08:26)
[2017-12-31] MEDS: guaiFENesin ER TAB 600 MG PO SCH (08:26)
[2017-12-31] MEDS: amLODIPine TAB* 5 MG PO SCH (08:26)
[2017-12-31 11:39] VITALS: BP 118/44
[2017-12-31] MEDS: Saline NASAL SPRAY 0.65%* BTL BOTH NARES SCH ×2 (12:16→16:14)
--- NOTE | 2018-01-03 04:02 | DS ---
CC: Vanesa Alexandra NP; Dr. Mott.* DISCHARGE SUMMARY: DATE OF ADMISSION: 12/28/17 DATE OF DISCHARGE: 12/31/17 PRIMARY CARE PROVIDER: Vanesa Alexandra NP ATTENDING PHYSICIAN: Mookie Fitzgerald M.D. * (dictated by Debra Soriano NP) PRIMARY DIAGNOSES: 1. Posterior epistaxis. 2. Acute blood loss anemia. SECONDARY DIAGNOSES: 1. Congestive heart failure. 2. Chronic obstructive pulmonary disease. 3. Coronary artery disease. 4. Hypertension. 5. Diabetes mellitus, type 2. HISTORY OF PRESENT ILLNESS AND HOSPITAL COURSE: Ms. Carter is a 77-year-old female with past medical history of CAD, anemia, COPD, AFib, and hypertension, who presented to the emergency room on 12/28/17 with complaints of a nosebleed, please see the history and physical by Dr. Rivers for the complete summary of the events up to this hospitalization. In short, the patient was seen in the emergency room earlier in the day, the bleeding was controlled and she was discharged home. She returned later within a couple hours due to recurrence, posterior packing was placed, though she continued to ooze small amount of blood despite packing. She was found to be mildly anemic with H and H of 9.9 and 29. She was admitted by the hospitalist service for severe epistaxis. Dr. Mott was consulted the patient was placed into the intensive care unit due to the presence of posterior packing. She was made n.p.o. except for ice chips and placed on IV Protonix. The patient was seen by Dr. Mott on 12/28/17, at which time, he brought her to the OR and removed balloon packs. He performed cauterization and ultimately inserted additional packing. The patient did receive 1 unit of packed red blood cells, during that point, H and H had dropped to 7.3 and 22. As of 12/30/17, H and H is 9.4 and 28. The patient was seen by Dr. Mott again on the day of discharge, he removed the packing and advised that the patient was stable for discharge home. The patient reports feeling well and is anxious to return home. She denies any dizziness or lightheadedness. She has been up, ambulating in the room. Her blood pressure has fluctuated some, has generally been between the 110s to 150s. CHF has remained stable with no exacerbation. Blood sugars have been slightly elevated and has been managed with insulin. Ms. Carter is stable for discharge today. Vital signs are as follows temp 97.9 , heart rate 60, respiratory 16, oxygen saturation 100% on room air, blood pressure 118/44. DISCHARGE MEDICATION: [place] Medications: 1. Saline nasal spray 1 spray both nares q.4 hours. Continued Medications: 1. Albuterol 2.5 mg nebulizer q.i.d. p.r.n. 2. Albuterol MDI 2 puffs q.6 hours p.r.n. 3. Amlodipine 5 mg p.o. daily. 4. Carvedilol 12.5 mg p.o. b.i.d. 5. Vitamin B12 500 micrograms b.i.d. 6. Lomotil 2.5-0.025 mg 1 tab p.o. daily p.r.n. 7. Guaifenesin 600 mg p.o. daily. 8. Hydroxychloroquine 400 mg p.o. daily. 9. Insulin NPH/regular 70/30 five units subcu b.i.d. 10. Levothyroxine 25 mcg p.o. daily. 11. Lisinopril 2.5 mg p.o. daily. 12. Torsemide 10 mg p.o. daily. 13. Ascorbic acid 500 mg p.o. daily. 14. Caltrate 600 mg plus D 1 tab p.o. b.i.d. 15. Calcium carbonate 1000 mg p.o. b.i.d. 16. Ferrous sulfate 325 mg p.o. daily. 17. Ipratropium 0.06% both nares daily. 18. Nitroglycerin 0.4 mg sublingual q.5 minutes p.r.n. 19. Pantoprazole 40 mg p.o. daily. 20. Protein supplement 946 mL p.o. daily. 21. Simvastatin 40 mg p.o. daily. 22. Xeljanz 5 mg p.o. b.i.d. Discontinued Home Medications: 1. Aspirin. DISCHARGE PLAN: Ms. Carter will be discharged to home. Activity will be as tolerated. Diet will be diabetic. Medications are noted above. The patient has been given a bottle of saline nasal spray to use per Dr. Mott's instruction. She has been advised to stop taking her aspirin at this time and resume on Wednesday giving her a total of 5 days off of aspirin. She will follow up with Dr. Mott next week. She should follow up with her PCP in 4 to 7 days. She has been advised to return to the emergency room or nearest hospital for any worsening symptoms, shortness of breath, lightheadedness, dizziness, chest discomfort, high fevers, chills, night sweats, loss of consciousness or any other worrisome signs or her symptoms. This is a summarized report of complex medical history and hospital stay. For further details, please see the entire medical record. TIME SPENT: Approximately 40 minutes were spent on this discharge greater than half of that time was spent [id number] with the patient discussing discharge plans and instructions. DEBRA SORIANO NP [id number]/[facility] #: [id number] CESAR
== END 2017-12-31 17:20 | disposition home or self-care (01) | DRG 151 ==
LOC: ED 14:07 → ICU 18:13 → MED 12-29 09:09 → OBSVTOIN 12-30 12:00
PROVIDERS: ADMIT Internal Medicine; ATTEND Internal Medicine
PROC: 2Y41X5Z Packing of Nasal Region using Packing Material (ICD-10-PCS; 2017-12-28)
PROC: 093K8ZZ Control Bleeding in Nasal Mucosa and Soft Tissue, Via Natural or Artificial Opening Endoscopic (ICD-10-PCS; principal; 2017-12-28 19:55)
PROC: 30233N1 Transfusion of Nonautologous Red Blood Cells into Peripheral Vein, Percutaneous Approach (ICD-10-PCS; 2017-12-29)
DX: R04.0 Epistaxis (principal); D62 Acute posthemorrhagic anemia; I50.32 Chronic diastolic (congestive) heart failure; I13.0 Hypertensive heart and chronic kidney disease with heart failure and stage 1 through stage 4 chronic kidney disease, or unspecified chronic kidney disease; I25.10 Atherosclerotic heart disease of native coronary artery without angina pectoris; J44.9 Chronic obstructive pulmonary disease, unspecified; I48.2 Chronic atrial fibrillation; N18.3 Chronic kidney disease, stage 3 (moderate); E03.9 Hypothyroidism, unspecified; E11.319 Type 2 diabetes mellitus with unspecified diabetic retinopathy without macular edema; D89.0 Polyclonal hypergammaglobulinemia; E11.22 Type 2 diabetes mellitus with diabetic chronic kidney disease; E78.5 Hyperlipidemia, unspecified; F32.9 Major depressive disorder, single episode, unspecified; K27.9 Peptic ulcer, site unspecified, unspecified as acute or chronic, without hemorrhage or perforation; M81.0 Age-related osteoporosis without current pathological fracture; M19.90 Unspecified osteoarthritis, unspecified site; M06.9 Rheumatoid arthritis, unspecified; Z79.4 Long term (current) use of insulin; Z90.89 Acquired absence of other organs; Z90.710 Acquired absence of both cervix and uterus; Z98.84 Bariatric surgery status; Z95.810 Presence of automatic (implantable) cardiac defibrillator; Z95.2 Presence of prosthetic heart valve; Z82.49 Family history of ischemic heart disease and other diseases of the circulatory system; Z87.891 Personal history of nicotine dependence; Z88.1 Allergy status to other antibiotic agents; Z88.5 Allergy status to narcotic agent; Z88.2 Allergy status to sulfonamides; Z87.01 Personal history of pneumonia (recurrent); Z87.440 Personal history of urinary (tract) infections; Z80.3 Family history of malignant neoplasm of breast; Z83.3 Family history of diabetes mellitus; Z90.49 Acquired absence of other specified parts of digestive tract; Z98.42 Cataract extraction status, left eye; Z98.41 Cataract extraction status, right eye; Z86.19 Personal history of other infectious and parasitic diseases
CPT/HCPCS: 36415; 80048; 85014; 85018; 85025; 85610; 85730; 86850; 86900; 86901; 86922; 99284; A9270-GY; G8978-GP-CI; G8979-GP-CI; G8980-GP-CI; J0330; J0690; J1100; J2250; J2270; J2405; J2704; J2765; J3010; P9016

== ENCOUNTER 2018-02-09 01:51 | Inpatient (IN) | payer MEDICARE, MEDICAID ==
--- NOTE | 2018-02-09 02:16 | ED ---
Shortness of Breath - HPI Summary HPI Summary: This patient is a 78 year old F presenting to [facility] with a chief complaint of difficulty breathing since 01:00 today. Patient reports dry mouth and coughing. Patient has a PMHx of anemia, COPD, and diabetes. She denies a PMHx of emphysema and CHF. She reports a heart operation 3-4 years ago to install a pacemaker. She is a former smoker. - History of Current Complaint Chief Complaint: EDShortnessOfBreath Time Seen by Provider: 02/09/18 01:55 Hx Obtained From: Patient, Family/Automatic Lathe Operator Onset/Duration: Lasting Hours - Since 01:00 today, Still Present Dyspnea At: Rest Associated Signs & Symptoms: Cough (Nonproductive), Fever - Denies - Allergy/Home Medications Allergies/Adverse Reactions: Allergies Allergy/AdvReac Type Severity Reaction Status Date / Time codeine Allergy Rash Verified 12/28/17 09:32 levofloxacin [From Levaquin] Allergy Agitation Verified 12/28/17 09:32 Sulfa (Sulfonamide Allergy Hives Verified 12/28/17 09:32 Antibiotics) PMH/Surg Hx/FS Hx/Imm Hx Endocrine/Hematology History: Reports: Hx Anticoagulant Therapy, Hx Blood Transfusions, Hx Diabetes, Hx Thyroid Disease, Hx Anemia, 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 Denies: Hx Systemic Lupus Erythematosus Cardiovascular History: Reports: Hx Angina, Hx Auto Implanted Cardiovert Defib, Hx Congestive Heart Failure, Hx Coronary Artery Disease, Hx Deep Vein Thrombosis - Man-made clot caused by nurse 40+ years ago, Hx Hypercholesterolemia, Hx Hypertension, Hx Pacemaker/ICD, Hx Valvular Heart Disease, Other Cardiovascular Problems/Disorders - Aortic valve replacement, bradycardia, cardiac catherization Denies: Hx Aneurysm, Hx Angioplasty, Hx Cardiac Arrest, Hx Cardiomegaly, Hx Congenital Heart Disease, Hx Embolism, Hx Myocardial Infarction, Hx Rheumatic Fever, Hx Syncope Respiratory History: Reports: Hx Asthma, Hx Chronic Obstructive Pulmonary Disease (COPD), Hx Pneumonia Denies: Hx Lung Cancer, Hx Sleep Apnea GI History: Reports: Hx Ulcer - Peptic ulcer disease, Other GI Disorders - gastric bypass Denies: Hx Gastroesophageal Reflux Disease History: Reports: Other Problems/Disorders - UTIs, CKD Denies: Hx Kidney Stones, Hx Renal Disease Musculoskeletal History: Reports: Hx Arthritis, Hx Rheumatoid Arthritis, Hx Back Problems, Hx Osteoporosis Denies: Hx Gout, Hx Orthopedic Injury Sensory History: Reports: Hx Contacts or Glasses, Hx Vision Problem Denies: Hx Cataracts, Hx Eye Injury, Hx Eye Prosthesis, Hx Deafness, Hx Hearing Aid, Hx Hearing Problem, Other Sensory Impairments Opthamlomology History: Reports: Hx Contacts or Glasses, Hx Vision Problem Denies: Hx Cataracts, Hx Eye Injury, Hx Eye Prosthesis, Other Sensory Impairments Neurological History: Reports: Hx Headaches Denies: Hx Dementia, Hx Developmental Delay, Hx Migraine, Hx Nerve Disease, Hx Seizures, Hx Spinal Cord Injury, Hx Transient Ischemic Attacks (TIA), Other Neuro Impairments/Disorders Psychiatric History: Reports: Hx Depression - Cancer History Cancer Type, Location and Year: Two sisters had breast cancer Hx Chemotherapy: No Hx Radiation Therapy: No - Surgical History Surgery Procedure, Year, and Place: Hysterectomy. Appendectomy. Tonsillectomy. Bilateral Knee Arthroscopy. Diabetic Retinopathy-eye surgery. GASTRIC BYPASS. Bilateral Cataract removal. Sinus Surgery. Florentin-en-y gastric bypass, 2007. Cholecystecomy 2008. Carpal Tunnel Surgery. Aortic Valve replacement, 2016, [facility] Anesthesia Reactions: No - Immunization History Date of Tetanus Vaccine: utd Date of Influenza Vaccine: utd Infectious Disease History: No Infectious Disease History: Reports: Hx Clostridium Difficile - History Denies: Hx Hepatitis, Hx Human Immunodeficiency Virus (HIV), Hx of Known/ Suspected MRSA, Hx Shingles, Hx Tuberculosis, Hx Known/Suspected VRE, Hx Known/ Suspected VRSA, History Other Infectious Disease, Traveled Outside the in Last 30 Days - Family History Known Family History: Positive: Cardiac Disease, Diabetes, Other - Breast Cancer - Social History Alcohol Use: None Hx Substance Use: No Substance Use Type: Reports: None Hx Tobacco Use: Yes - quit > 20 yrs ago Smoking Status (MU): Former Smoker Type: Cigarettes Have You Smoked in the Last Year: No Review of Systems Negative: Fever Positive: Other - Dry mouth Positive: Shortness Of Breath All Other Systems Reviewed And Are Negative: Yes Physical Exam - Summary Physical Exam Summary: Appearance: Well appearing, mild pain distress Skin: 2+ LE pitting edema Head/face: normal Eyes: EOMI, NEMO ENT: Pallor of the mucous membranes Neck: No KARLA in neck Respiratory: CTA, breath sounds extremely diminished with crackles in the right side Cardiovascular: RRR, pulses symmetrical Abdomen: non-tender, soft Bowel Sounds: present Musculoskeletal: normal, strength/ROM intact Neuro: normal, sensory motor intact, A&Ox3 Triage Information Reviewed: Yes Vital Signs On Initial Exam: Initial Vitals Temp Pulse Resp BP Pulse Ox 97 F 62 40 126/45 92 02/09/18 01:51 02/09/18 01:51 02/09/18 01:51 02/09/18 01:51 02/09/18 01:51 Vital Signs Reviewed: Yes Diagnostics - Vital Signs Vital Signs Temp Pulse Resp BP Pulse Ox 02/09/18 01:51 97 F 62 40 126/45 92 - Laboratory Result Diagrams: 02/09/18 02:32 02/09/18 02:32 Lab Statement: Any lab studies that have been ordered have been reviewed, and results considered in the medical decision making process. - CT Chest X-Ray CT Interpretation Completed By: ED Physician Summary of CT Findings: 03:10. Pneumonia. Pending official report. - EKG 02:15 Cardiac Rate: NL - 60 BPM EKG Rhythm: Sinus Rhythm ST Segment: Non-Specific Ectopy: None Summary of EKG Findings: Ventricularly paced, wide complex Course/Dx - Course Course Of Treatment: Nurse's note reviewed. Patient with cough chills and weakness. Presents with O2 sats 88-90% on room air. Breathing rapidly. Improved with nasal cannula oxygen and breathing treatments. Right middle lobe infiltrate on x-ray. No white count, WBC is actually little low. Pending flu testing results. Bilateral lower extremity edema with increased BNP but no significant edema on x-ray or effusions. Rocephin, Zithromax given her Levaquin allergy. Hospitalist to decide on nosocomial exposure. - Diagnoses Differential Diagnosis/HQI/PQRI: Positive: CHF, COPD Exacerbation, Pneumonia, Pneumothorax, Pulmonary Edema Provider Diagnoses: PNA (pneumonia), Acute blood loss anemia, COPD (chronic obstructive pulmonary disease) - Physician Notifications Discussed Care of Patient With: Cami Page - admit to hospital - Critical Care Time Critical Care Time: 30-74 min - 30 min. CCT is EXCLUSIVE of separately billable procedures. Discharge - Sign-Out/Discharge Documenting (check all that apply): Patient Departure - Admit - Discharge Plan Condition: Fair Disposition: ADMITTED TO [facility] Referrals: Storm,Shawnti R, [employer] [Primary Care Provider] - - Billing Disposition and Condition Condition: FAIR Disposition: Admitted to [facility] - Attestation Statements Document Initiated by Mayra: Yes Documenting Scribe: Robbie Brantley Provider For Whom Mayra is Documenting (Include Credential): Michael Brian MD Scribmathew Attestation: Robbie Brown, scribed for Michael Brian MD on 02/09/18 at 0343. Scribe Documentation Reviewed: Yes Provider Attestation: The documentation as recorded by the Robbie jc accurately reflects the service I personally performed and the decisions made by me, Michael Brian MD Status of Scribe Document: Viewed
--- OUTSIDE RECORDS SUMMARY | 2018-02-09 02:43 | XMS REPORT | Continuity of Care Document ---
:1940 External Reference #:[id number] Author Name Teena Tabor PA-C Address [address] [address] Care Team Providers Name Role Phone Vanesa Alexandra F.N.P. Primary Care Physician Unavailable Payers Type Date Identification Numbers Payment Provider Subscriber Effective: Policy Number: [id number] [place] [employer] Brittanie Dawit Emma 1994 [employer] PayID: [id number] [address] [place] [address] Policy Number: [id number] Medicaid/C Brittanie Dawit Carter Group Number: [id number] Medicare Primary Group Name: 2 1 120 [address] PayID: [id number] [place] [address] Advance Directives Description No Information Available Problems Date Description Provider Status Onset: 03/19/2006 Type 2 diabetes mellitus Abdulkadir Mott MD Active Onset: 03/19/2006 Essential hypertension Abdulkadir Mott MD Active Family History Date Family Member(s) Problem(s) Comments Father due to Heart Disease () Father due to Diabetes () Mother due to Diabetes () Mother due to Heart Disease () First Sister due to Liver Cancer () First Sister due to Breast Cancer () First Sister Breast Cancer Paternal Grandfather due to Diabetes () Paternal Grandmother due to Diabetes () Social History Type Date Description Comments Sex Unknown Occupation Disabled Tobacco Use Start: Unknown End: Former Cigarette Smoker for 21 years Unknown Packs Daily 3 Tobacco Use Start: Unknown Quti About 32 Years Ago Tobacco Use Start: Unknown End: current.no Unknown Tobacco Use Start: Unknown End: current.no Unknown Smokeless Tobacco current.no ETOH Use Currently rarely consumes alcohol Tobacco Use Start: Unknown End: Patient is a former smoker Unknown Smoking Status Reviewed: 01/11/18 Patient is a former smoker Allergies, Adverse Reactions, Alerts Date Description Reaction Status Severity Comments 09/24/2011 Cadien Active 01/11/2018 sulfa Active 01/11/2018 Codeine Active 01/11/2018 Levaquin Active 01/11/2018 Bactrim Active Medications Medication Date Status Form Strength Qnty SIG Indications Ordering Provider Lidoderm Active Patches 5% one patch Unknown /0000 in am/off in at night Tylenol Active Tablets 325mg as needed Unknown /0000 for pain Prolia Active Solution 60mg/ml 1 syringe Unknown /0000 subq every 6 months (january and july) Xeljanz Active Tablets 5mg Unknown /0000 Plaquenil Active Tablets 200mg 1 by mouth Unknown /0000 every day Nitrostat Active Tablets Sub 0.4mg 1 tab Unknown /0000 sublingual every 5 mins x 3 as needed for chest pain Torsemide Active Tablets 10mg as Unknown /0000 directed Simvastatin Active Tablets 40mg 1 by mouth Unknown /0000 every day Vitamin C Active Tablets 1000mg 1 by mouth Unknown /0000 every day Ferrous Sulfate Active Tablets ER 325(65Fe) Unknown ER /[address] 81mg 1 by mouth Unknown /0000 once a day Levothyroxine Active Tablets 25mcg 1 by mouth Unknown Sodium /0000 every day Amlodipine Active Tablets 10mg 1 by mouth Unknown Besylate /0000 every day Albuterol Sulfate Active Unknown /0000 Carvedilol Active Tablets 12.5mg Unknown /0000 Ipratropium Active Solution 0.06% spray in Unknown [place] /0000 each nostril 4 times a day as needed for rhinitis Humulin 70/30 Active Supn (70-30)10 Unknown Kwikpen /0000 0Unit/ML Aranesp (Albumin Active Solution 60mcg/ML Unknown Free) /0000 Mucinex Active Tablets ER 600mg 1 by mouth Unknown /0000 12HR twice a day Tums Ultra 1000 Active Chewtabs 1000mg 1 by mouth Unknown /0000 twice a day as needed Lisinopril Active Tablets 2.5mg 1 by mouth Unknown /0000 every day Vitamin B12 Active Tablets 500mcg 1 by mouth Unknown /0000 every day Caltrate 600+D3 Active Chewtabs 600-800mg Unknown Soft /0000 -Unit Diphenoxylate-Atr Active Tablets 2.5-0.025 as Unknown opine /0000 mg directed Pantoprazole Active Tablets DR 40mg 1 by mouth Unknown Sodium /0000 every day No Active 01/11 Hx Unknown Medications - 01/11 Bacitracin Zinc 09/23 Hx Ointment 500Unit/G 1tube apply to Abdulkadir M both [place] nostrils 01/11 night before bed Nasonex 03/22 Hx Suspension 50mcg 17gm 2 puff 473.2 Abdulkadir Intranasal [place] Each [place] Nostril 09/23 Humalog 03/18 Hx Unknown /2006 - 09/23 Actos 03/18 Hx Unknown /2006 - 09/23 Simvastatin 03/18 Hx Unknown /2006 - 09/23 Methotrexate 03/18 Hx Unknown /2006 - 09/23 Lisinopril 03/18 Hx Unknown /2006 - 09/23 Benzonatate 03/18 Hx Unknown /2006 - 09/23 Caltrate 600 Hx Unknown / - 01/11 Centrum Hx Unknown / - 01/11 Vitamin A Hx Unknown / - 01/11 Vitamin C Hx Unknown W/Vitamin /0000 E - 01/11 Lantus Hx Unknown / - 01/11 Aspirin Hx 81mg Unknown / - 01/11 Methotrexate 00 Hx Unknown /0000 - 03/09 Warfarin Sodium Hx Tablets 1mg Unknown / - 01/[address] 20mg 180ca 1 tab by Unknown /0000 ps mouth 30 - min before 01/11 breakfast and dinner Warfarin Sodium Hx Tablets 5mg Unknown / - 01/11 Hydroxychloroquin Hx Tablets 200mg 20tab 2 po qweek Unknown e Sulfate s for 10 - weeks with 01/11 glass of water Ferrous Sulfate Hx Tablets DR 325(65Fe) Unknown / mg - 01/11 Metoprolol Hx - 01/11 Lisinopril Hx Tablets 10mg - 01/11 Tylenol Arthritis Hx Tablets ER 650mg Unknown Pain - 01/11 Simvastatin Hx - 01/11 Metformin HCL Hx - 01/11 Immunizations Description No Information Available Vital Signs Date Vital Result Comment 01/11/2018 2:17pm Weight 138.00 lb Weight 62.597 kg Height 65 inches 5'5" Height in cm's 165.1 cm BMI (Body Mass Index) 23.0 kg/m2 03/09/2012 2:36pm BP Systolic 175 mmHg BP Diastolic 100 mmHg Heart Rate 71 /min Respiratory Rate 16 /min Weight 179.00 lb Weight 81.194 kg Height 65 inches 5'5" Height in cm's 165.1 cm BMI (Body Mass Index) 29.8 kg/m2 03/22/2006 9:50am BP Systolic 145 mmHg BP Diastolic 48 mmHg Heart Rate 74 /min Respiratory Rate 16 /min Results Description No Information Available Procedures Date Code Description Status 12/28/2017 92929 Endoscopic Nasal Cautery Completed 03/09/2012 35699 Tympanometry Completed 03/09/2012 62363 Comprehensive Audiogram Completed 09/24/2011 32957 Contol Nasal Hemorrhage, Anterior, Simple Completed 03/22/2006 58069 Nasal Endoscopy, Diagnostic Completed Encounters Type Date Location Provider Dx Diagnosis Office Visit 03/09/2012 Fermin,Gurvinder Baumann 389.10 Hearing Loss, 2:30p 02/22/07 MD [facility] Sensorineural/Unsp ecified 386.10 Vertigo / Unspecified Office Visit 10/28/2011 10:15a Fermin,After 02/22/07 Abdulkadir Baumann 784.7 Epistaxis MD [facility] Office Visit 09/24/2011 9:30a Fermin,After 02/22/07 Abdulkadir Baumann 784.7 Epistkhai Mott MD Office Visit 03/22/2006 10:00a Fermin,After 02/22/07 Abdulkadir Baumann 473.2 Sinusitis, MD [facility] Chronic Ethmoidal 473.0 Sinusitis, Chronic Maxillary 350.2 Facial Pain, Atypical 250.00 Diabetes, Type II W/Out Metion Of Complication Or Unspec.Typ 401.9 High Blood Pressure Or Hypertension/Unspecified Plan of Treatment No Information Available
[2018-02-09 02:46] LABS: ABS Basophils 0 10^3/ul (0-0.2); ABS Eosinophils 0.2 10^3/ul (0-0.6); ABS Lymphocytes 1.1 10^3/ul (1.0-4.8); ABS Monocytes 0.2 10^3/ul (0-0.8); ABS Neutrophils 2.3 10^3/ul (1.5-7.7); ABS Nucleated RBC 0 10^3/ul; Eosinophil % 5.2 %; Hematocrit 24 % (35-47); Lymphocyte % 29.4 %; Mean Corpuscular HGB Conc 34 g/dl (31-36); Mean Corpuscular Hemoglobin 32 pg (27-31); Mean Corpuscular Volume 96 fL (80-97); Mean Platelet Volume 9.5 fL (7.4-10.4); Nucleated Red Blood Cells % 0.1; Platelet Count 146 10^3/ul (150-450); Red Blood Count 2.47 10^6/ul (4.00-5.40); Red Cell Distribution Width 15 % (10.5-15); White Blood Count 3.9 10^3/ul (3.5-10.8)
[2018-02-09 02:50] LABS: INR 1.06 (0.77-1.02)
[2018-02-09 03:01] LABS: Albumin 3.1 g/dL (3.2-5.2); BUN/Creatinine Ratio 29.8 (8-20); C Reactive Protein 1.99 mg/L (<8.01); Calcium 7.6 mg/dL (8.6-10.3); EGFR Non-African American 41.7 (>60); Potassium 4.2 mmol/L (3.5-5.0); Total Bilirubin 0.2 mg/dL (0.2-1.0); Total Protein 6.1 g/dL (6.4-8.9)
[2018-02-09] MEDS ORDERED: cefTRIAXone(*) 1 GM in NS 0.9% 50 ML* 50 ML IVPB ONE (03:16)
[2018-02-09] MEDS ORDERED: NS 0.9% 1000 ML* 1,000 ML IV ONE (03:16)
[2018-02-09] MEDS ORDERED: Azithromycin IV(*) 500 MG in NS 0.9% 250 ML* 250 ML IVPB ONE (03:16)
[2018-02-09] MEDS ORDERED: Albuterol/Ipratropium NEB.SOL* Albuterol 2.5 MG/Ipratropium 0.5 MG 3 ML ONE (03:36)
[2018-02-09] MEDS ORDERED: Albuterol/Ipratropium NEB.SOL* Albuterol 2.5 MG/Ipratropium 0.5 MG 3 ML INH ONE (03:40)
[2018-02-09] MEDS ORDERED: methylPREDNISolone 125 MG* 2 ML VIAL IV ONE (03:45)
[2018-02-09] MEDS ORDERED: Senna TAB PO PRN (04:16)
[2018-02-09] MEDS ORDERED: Ondansetron INJ* 2 MG/ML VIAL IV PRN (04:16)
[2018-02-09] MEDS ORDERED: Acetaminophen TAB* 325 MG PO PRN (04:16)
[2018-02-09] MEDS ORDERED: Al Hydrox/Mg Hydrox/Simet LIQ* 30 ML UDC PO PRN (04:16)
[2018-02-09] MEDS ORDERED: Docusate CAP* 100 MG PO PRN (04:16)
[2018-02-09] MEDS ORDERED: Saline NASAL SPRAY 0.65%* BTL BOTH NARES PRN (04:18)
[2018-02-09] MEDS ORDERED: Albuterol 2.5 MG/3 ML NEB.SOL* (0.083%) INH PRN (04:18)
[2018-02-09] MEDS ORDERED: guaiFENesin LIQ* 100 MG/5 ML UDC PO PRN (04:20)
[2018-02-09] MEDS ORDERED: Dextrose 50% Syringe 50 ML* 25 GM/50 ML SYRINGE IV PUSH PRN ×2 (04:21→10:23)
[2018-02-09] MEDS ORDERED: NS 0.9% 1000 ML* 1,000 ML IV SCH (04:30)
--- NOTE | 2018-02-09 08:48 | HP ---
CC: Vanesa Alexandra NP.* HISTORY AND PHYSICAL: DATE OF ADMISSION: 02/09/18 TIME OF EVALUATION: 0400 PRIMARY CARE PHYSICIAN: Vanesa Alexandra NP. CHIEF COMPLAINT: Shortness of breath. 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 The patient says she woke up during the night acutely short of breath, stating that she could not breathe good. She denies any coughing. She states she is very cold, with chills. No fever, no nausea or vomiting. No chest pain , no abdominal pain. No urinary symptoms. She denies any sick contacts. She was dizzy this evening upon standing, otherwise review of systems is negative. The patient denies any changes to her medications when she was admitted about a month ago. She is still taking her aspirin 81 mg daily. She states she has had a shot in her left upper extremity for arthritis about a week ago. She denies any falls. Otherwise, review of systems is negative. In the emergency room, the patient had labs and imaging. She was given 1 liter of normal saline, 125 mg of Solu-Medrol, 1 g of ceftriaxone, 500 mg of azithromycin, and DuoNeb and referred to the hospitalist service for further evaluation. PAST MEDICAL HISTORY: 1. Recent admission in December 2017 for epistaxis. 2. History of transaortic valve replacement. 3. History of CAD. 4. History of polyclonal hypergammaglobulinemia. 5. History of chronic anemia with frequent transfusions. 6. 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 7. History of chronic atrial fibrillation. 8. History of severe peptic ulcer disease. 9. CKD stage 3. 10. Rheumatoid arthritis, on immunosuppressants. 11. Hypothyroidism. 12. Hypertension. 13. Hyperlipidemia. 14. History of status post pacemaker placement. 15. History of Florentin-en-Y gastric bypass surgery. 16. Diabetic retinopathy. 17. 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 MEDICATIONS: Per patient, they have not changed since her discharge in December. She states she is takin. Aspirin 81 mg daily. 2. Saline nasal spray 1 spray to both nares q.4 hours as needed. 3. Albuterol nebulizer q.i.d. as needed. 4. Amlodipine 5 mg p.o. daily. 5. Carvedilol 12.5 mg p.o. b.i.d. 6. Vitamin B12 500 mcg p.o. b.i.d. 7. Lomotil 1 tablet daily as needed. 8. Guaifenesin 600 mg p.o. daily. 9. Hydroxychloroquine 400 mg p.o. daily. 10. Insulin NPH/ regular 70/30, 5 units subcu b.i.d. 11. Levothyroxine 25 mcg p.o. daily. 12. Lisinopril 2.5 mg daily. 13. Torsemide 10 mg daily. 14. Ascorbic acid 500 mg daily. 15. Caltrate 600 mg plus D, 1 tablet p.o. b.i.d. 16. Calcium carbonate 1000 mg p.o. b.i.d. 17. Ferrous sulfate 325 mg daily. 18. Ipratropium 0.06% to both nares daily. 19. Nitroglycerin 0.4 mg sublingual q.5 minutes. 20. Pantoprazole 40 mg p.o. daily. 21. Protein supplement 946 mL p.o. daily. 22. Simvastatin 40 mg p.o. daily. 23. Xeljanz 5 mg p.o. b.i.d. ALLERGIES: CODEINE, LEVOFLOXACIN and SULFA. FAMILY HISTORY: Reviewed and noncontributory. SOCIAL HISTORY: Patient lives with her son and his 2 children. She ambulates with a walker and a wheelchair. She quit smoking more than 40 years ago. No alcohol use or illicit drug use. Code status is full code. REVIEW OF SYSTEMS: A 14-point review of systems is as mentioned in the HPI, otherwise negative. PHYSICAL EXAMINATION GENERAL: No acute distress, pale appearing, resting comfortably, with her granddaughter at the bedside. VITALS: Temperature is 97, pulse rate is 60, respiratory rate is 16, oxygen saturation 100% on 3 liters, blood pressure 157/54. HEENT: Head normocephalic. Pupils are equal and reactive, anicteric. Oropharynx: Mucous membranes are moist. NECK: Supple. RESPIRATORY: Scattered rhonchi bilaterally. No increased work of breathing. No expiratory wheezing. Diminished breath sounds. CARDIAC: There is diastolic murmur heard throughout. Regular rate and rhythm. ABDOMEN: Soft, nontender, nondistended. EXTREMITIES: +1 pretibial edema. NEUROLOGIC: Alert and oriented x3. No gross focal neurologic deficits. DIAGNOSTIC STUDIES/LABORATORY DATA: White count is 3.9, hemoglobin 8.0, hematocrit 24, platelets 146. INR is 1.06. Blood gas pH 7.4, PCO2 of 37, PO2 of 65. Sodium 136, potassium 4.2, chloride 108, bicarb 23, BUN 37, creatinine 1.24, glucose 214. Lactic acid 0.7. Troponin 0.01. BNP is 663. Flu is negative. Radiographic: Chest x-ray showed patchy bilateral pneumonia. EKG shows ventricular paced rhythm. 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 1. Shortness of breath. Assessment: The patient's history and physical are consistent with community-acquired pneumonia. She had a chest x-ray that shows patchy bilateral pneumonia. No evidence of COPD exacerbation at this time. Plan: We will continue her on ceftriaxone and azithromycin, place her on gentle IV fluids. We will hold off on continuing her on steroids, but we will continue her inhaler regimen. 2. History of polyclonal hypergammaglobulinemia: H&H appears stable. We will monitor this closely. Hold off on transfusion at this point. CHRONIC MEDICAL PROBLEMS: 1. Due to the patient's pneumonia and concern for volume depletion with her orthostasis, we will hold her lisinopril and her torsemide, as she also has a slight bump in her renal function. 2. For her rheumatoid arthritis, we will hold her Xeljanz. 3. For insulin, continue her on Lispro sliding scale for now. 4. Resume remaining medications as listed. 5 FEN: Diabetic diet with gentle IV fluids. 6. DVT prophylaxis: The patient scores high risk due to her chronic anemia with frequent transfusions. We will place her on SCDs. 7. Code status: Full code. She was very tired and did not want to fully discuss this. So, I recommend readdressing this issue. PATIENT TIME: Greater than 45 minutes spent doing the history and physical, more than half the time spent in direct patient contact. [id number]/[facility] #: [id number] CESAR
[2018-02-09] MEDS: Calcium Carbonate TAB* 1250 MG (CALCIUM 500 MG) PO SCH ×2 (09:54→21:56)
[2018-02-09] MEDS: Omeprazole CAP* 20 MG PO SCH (09:54)
[2018-02-09] MEDS: Atorvastatin* 20 MG TAB PO SCH (09:54)
[2018-02-09] MEDS: amLODIPine TAB* 5 MG PO SCH (09:54)
[2018-02-09] MEDS: Carvedilol TAB* 6.25 MG PO SCH ×2 (09:54→21:55)
[2018-02-09] MEDS: Ferrous Sulfate TAB* 325 MG PO SCH (09:54)
[2018-02-09] MEDS: Hydroxychloroquine TAB* 200 MG PO SCH ×2 (09:55→21:55)
[2018-02-09] MEDS: IPRATROPIUM BR 0.06% BOTH NARES SCH (10:08)
[2018-02-09] MEDS: Insulin LISPRO* 1 UNITS UNIT SUBCUT SCH ×7 (10:31→20:05)
--- NOTE | 2018-02-09 11:40 | PN ---
Subjective Date of Service: 02/09/18 Interval History: Pt is a 78 yof who presented to the ER early this morning with weakness, SOB, and feeling faint. She states that she was walking from the bathroom when she started to feel these symptoms. Prior this, she was in her usual state of health, and she states that this happened suddenly. Pt states that this happend at one other time approximately 3 months ago, leading to hospital admission. Currently, she is still feeling weak, and is unable to tolerate ambulation. She states that she is feeling better with the use of oxygen, stating that she feels she is able to breath better. She has a history of anemia, and sees Dr. Broderick for her dx of polyclonal hypergammaglobulinemia every 4-5 weeks. Her last visit to this provider was about 1 month ago, where she received an injection; she had an appointment scheduled for today. Family History: Unchanged from Admission Objective Active Medications: Acetaminophen (Tylenol Tab*) 650 mg PO Q4H PRN Al Hydrox/Mg Hydrox/Simethicone (Maalox Plus*) 30 ml PO Q6H PRN Albuterol (Ventolin 2.5 Mg/3 Ml Neb.Rivka*) 2.5 mg INH Q4H PRN Amlodipine Besylate (Norvasc Tab*) 5 mg PO DAILY MARIAMA Atorvastatin Calcium (Lipitor*) 20 mg PO DAILY MARIAMA Calcium Carbonate (Calcium Carbonate Tab*) 1,250 mg PO BID MARIAMA Carvedilol (Coreg Tab*) 12.5 mg PO BID MARIAMA Dextrose (D50w Syringe 50 Ml*) 12.5 gm IV PUSH .FOR FS < 60 - SS PRN Dextrose (D50w Syringe 50 Ml*) 12.5 gm IV PUSH .FOR FS < 60 - SS PRN Diphenoxylate HCl/Atropine (Lomotil Tab*) 1 tab PO DAILY PRN Docusate Sodium (Colace Cap*) 100 mg PO BID PRN Ferrous Sulfate (Ferrous Sulfate Tab*) 325 mg PO DAILY MARIAMA Guaifenesin (Robitussin*) 5 ml PO Q4H PRN Hydroxychloroquine Sulfate (Plaquenil Tab*) 200 mg PO BID MARIAMA Sodium Chloride (Ns 0.9% 1000 Ml*) 1,000 mls @ 75 mls/hr IV PER RATE MARIAMA Ceftriaxone Sodium 1 gm/ (Sodium Chloride) 50 mls @ 200 mls/hr IVPB Q24H MARIAMA Azithromycin 250 mg/ Sodium (Chloride) 250 mls @ 250 mls/hr IVPB Q24H MARIAMA Insulin Human Lispro (Humalog*) 0 units SUBCUT AC MARIAMA; Protocol Insulin Human Lispro (Humalog*) 0 units SUBCUT AC MARIAMA; Protocol Ipratropium [place] (Ipratropium [place]) 0 ml BOTH NARES DAILY MARIAMA Omeprazole (Prilosec Cap*) 20 mg PO DAILY@0730 MARIAMA Ondansetron HCl (Zofran Inj*) 4 mg IV Q4H PRN Senna (Senokot Tab*) 1 tab PO BID PRN Sodium Chloride (Sodium Chloride 0.65% Nasal Hew[place]*) 1 spray BOTH NARES Q4H PRN Vital Signs: Temp Pulse Resp BP Pulse Ox 97.6 F 69 16 136/43 99 02/09/18 10:53 02/09/18 10:53 02/09/18 10:53 02/09/18 10:53 02/09/18 10:53 Oxygen Devices in Use Now: Nasal Cannula Appearance: Pt is pale and resting with HOB elevated approximately 45 degrees. Eyes: No Scleral Icterus - EOMI; pupils are small; L eye peripheral vision not intact, which pt reports is her baseline. Ears/Nose/Mouth/Throat: NL Teeth, Lips, Gums Neck: NL Appearance and Movements; NL JVP, Trachea Midline Respiratory: Symmetrical Chest Expansion and Respiratory Effort - Crackles throuhgout R lung; L lung CTAB Cardiovascular: NL Sounds; No Murmurs; No JVD, RRR Abdominal: NL Sounds; No Tenderness; No Distention Extremities: - - Radial pulse weak; b/l LE pedal pulses not palpable; b/l LE pittind edema 2+; capillary refill <2sec Neurological: Alert and Oriented x 3, NL Sensation Result Diagrams: 02/09/18 02:32 02/09/18 02:32 Microbiology and Other Data: Microbiology 02/09/18 03:10 Influenza Types A,B Antigen - Final Nasopharyngeal Specimen received for Influenza A/B Molecular testing Assess/Plan/Problems-Billing Assessment: This is a 78yof who was admitted early this morning for pneumonia and anemia. She has improved since arrival with the use of O2. She is on ceftriaxone and azithromycin for tx of CAP. - Patient Problems (1) Pneumonia Code(s): J18.9 - PNEUMONIA, UNSPECIFIED ORGANISM SNOMED Code(s): 289285421 Comment: -Pt has cough, SOB; CXR shows patchy consolodiation of RUL, RML -Continue O2, titrate to need; will get home O2 screening done this visit -Continue Ceftriaxone and Azithromycin -Legionella, S. pneumo added to lab orders -Albuterol prn SOB -Guaifenesin prn cough (2) Anemia Code(s): D64.9 - ANEMIA, UNSPECIFIED SNOMED Code(s): 527865713 Comment: -Pt Hgb at 8.0, which is near baseline; pt has polyclonal hypergammaglobulinemia and is managed by Dr. Broderick. This is the cause of her anemia, and bleeding is unlikely. -Continue ferrous sulfate -Continue to monitor H/H (3) CHF (congestive heart failure) Code(s): I50.9 - HEART FAILURE, UNSPECIFIED SNOMED Code(s): 76825546 Comment: -Pt does not appear to be in exacerbation -Continue Carvedilol, Norvasc (4) Stage 3b chronic kidney disease Current Visit: Yes Status: Acute Code(s): N18.3 - CHRONIC KIDNEY DISEASE, STAGE 3 (MODERATE) SNOMED Code(s): 334679382 Comment: -Cr at baseline (5) COPD (chronic obstructive pulmonary disease) Code(s): J44.9 - CHRONIC OBSTRUCTIVE PULMONARY DISEASE, UNSPECIFIED SNOMED Code(s): 88561565 Comment: -Continue Albuterol prn (6) Type II diabetes mellitus Comment: -Blood sugar is uncontrolled at 258; likely elevated due to steroids -Constant carbohydrate diet -Sliding scale insulin ordered -Lantus 5 ordered; pt on 70/30 at home (7) HLD (hyperlipidemia) Code(s): E78.5 - HYPERLIPIDEMIA, UNSPECIFIED SNOMED Code(s): 24278002 Comment: -Continue atorvastatin (8) Rheumatoid arthritis Code(s): M06.9 - RHEUMATOID ARTHRITIS, UNSPECIFIED SNOMED Code(s): 03862255 Comment: -Continue hydroxychloroquine; hold Xeljanz (9) GERD (gastroesophageal reflux disease) Code(s): K21.9 - GASTRO-ESOPHAGEAL REFLUX DISEASE WITHOUT ESOPHAGITIS SNOMED Code(s): 109149767 Comment: -Continue Omeprazole (10) Constipation Code(s): K59.00 - CONSTIPATION, UNSPECIFIED SNOMED Code(s): 83089260 Comment: -Medication ordered prn constipation; continue to monitor (11) DVT prophylaxis Code(s): QKN2610 - SNOMED Code(s): 689292484 Comment: -SCD in place (12) Full code status Code(s): Z78.9 - OTHER SPECIFIED HEALTH STATUS SNOMED Code(s): 685276223
[2018-02-10] MEDS: cefTRIAXone(*) 1 GM in NS 0.9% 50 ML* 50 ML IVPB SCH (03:12)
[2018-02-10] MEDS: Azithromycin IV(*) 250 MG in NS 0.9% 250 ML* 250 ML IVPB SCH (04:05)
[2018-02-10 07:11] LABS: ABS Basophils 0 10^3/ul (0-0.2); ABS Eosinophils 0 10^3/ul (0-0.6); ABS Lymphocytes 0.6 10^3/ul (1.0-4.8); ABS Monocytes 0.5 10^3/ul (0-0.8); ABS Nucleated RBC 0 10^3/ul; Eosinophil % 0.1 %; Hematocrit 20 % (35-47); Hemoglobin 6.7 g/dl (12.0-16.0); Lymphocyte % 7.2 %; Mean Corpuscular HGB Conc 33 g/dl (31-36); Mean Corpuscular Hemoglobin 32 pg (27-31); Mean Corpuscular Volume 97 fL (80-97); Mean Platelet Volume 9.4 fL (7.4-10.4); Nucleated Red Blood Cells % 0; Platelet Count 119 10^3/ul (150-450); Red Blood Count 2.11 10^6/ul (4.00-5.40); Red Cell Distribution Width 15 % (10.5-15)
[2018-02-10 08:12] LABS: Calcium 6.5 mg/dL (8.6-10.3); EGFR Non-African American 35.7 (>60); Potassium 4.6 mmol/L (3.5-5.0)
--- NOTE | 2018-02-10 08:20 | PN ---
Subjective Date of Service: 02/10/18 Interval History: RN called, stating that Hgb dropped to 6.7. Went to talk to pt about transfusion. Pt states that she feels better and more rested, as she was able to sleep better last night. She states that she still feels "somewhat weak." She also feels as if she is short of breath, despite 3L NC, although she believes that the oxygen is helping. She has been up to the bathroom with walker and assistance and states that she does not feel faint with ambulation. Pt has bruising on b/l forearms, which she states has been there "forever," stating that they fade a bit at times, but are always there. She is eating well. She states that she has chills, but that she is "always cold." Pt was scheduled to see Dr. Broderick yesterday. Family History: Unchanged from Admission Objective Active Medications: Acetaminophen (Tylenol Tab*) 650 mg PO Q4H PRN Al Hydrox/Mg Hydrox/Simethicone (Maalox Plus*) 30 ml PO Q6H PRN Albuterol (Ventolin 2.5 Mg/3 Ml Neb.Rivka*) 2.5 mg INH Q4H PRN Amlodipine Besylate (Norvasc Tab*) 5 mg PO DAILY [facility] Atorvastatin Calcium (Lipitor*) 20 mg PO DAILY [facility] Calcium Carbonate (Calcium Carbonate Tab*) 1,250 mg PO BID [facility] Carvedilol (Coreg Tab*) 12.5 mg PO BID [facility] Dextrose (D50w Syringe 50 Ml*) 12.5 gm IV PUSH .FOR FS < 60 - SS PRN Dextrose (D50w Syringe 50 Ml*) 12.5 gm IV PUSH .FOR FS < 60 - SS PRN Diphenoxylate HCl/Atropine (Lomotil Tab*) 1 tab PO DAILY PRN Docusate Sodium (Colace Cap*) 100 mg PO BID PRN Ferrous Sulfate (Ferrous Sulfate Tab*) 325 mg PO DAILY [facility] Guaifenesin (Robitussin*) 5 ml PO Q4H PRN Hydroxychloroquine Sulfate (Plaquenil Tab*) 200 mg PO BID [facility] Sodium Chloride (Ns 0.9% 1000 Ml*) 1,000 mls @ 75 mls/hr IV PER RATE [facility] Ceftriaxone Sodium 1 gm/ (Sodium Chloride) 50 mls @ 200 mls/hr IVPB Q24H [facility] Azithromycin 250 mg/ Sodium (Chloride) 250 mls @ 250 mls/hr IVPB Q24H [facility] Insulin Glargine (Lantus(*)) 5 units SUBCUT DAILY@0800 [facility] Insulin Human Lispro (Humalog*) 0 units SUBCUT AC [facility]; Protocol Insulin Human Lispro (Humalog*) 0 units SUBCUT AC [facility]; Protocol Ipratropium [place] (Ipratropium [place]) 0 ml BOTH NARES DAILY [facility] Omeprazole (Prilosec Cap*) 20 mg PO DAILY@0730 [facility] Ondansetron HCl (Zofran Inj*) 4 mg IV Q4H PRN Senna (Senokot Tab*) 1 tab PO BID PRN Sodium Chloride (Sodium Chloride 0.65% Nasal [place]*) 1 spray BOTH NARES Q4H PRN Vital Signs: Temp Pulse Resp BP Pulse Ox 96.6 F 62 16 111/45 100 02/10/18 03:41 02/10/18 03:41 02/10/18 03:41 02/10/18 03:41 02/10/18 03:41 Oxygen Devices in Use Now: Nasal Cannula - 3L Appearance: Pt is awake and resting; she appears well and comfortable. Eyes: No Scleral Icterus, PERRLA Ears/Nose/Mouth/Throat: NL Teeth, Lips, Gums, Mucous Membranes Moist Neck: NL Appearance and Movements; NL JVP, Trachea Midline Respiratory: Symmetrical Chest Expansion and Respiratory Effort, - - L lung CTAB ; R lung with rhonchi throughout Cardiovascular: NL Sounds; No Murmurs; No JVD, RRR Abdominal: NL Sounds; No Tenderness; No Distention, No Hepatosplenomegaly Extremities: No Clubbing, Cyanosis, - - B/l MCP joints in ulnar deviation; b/l LE edema 2+ pitting; b/l radial pulses weak; pedal pulses not palpable Skin: - - b/l UE forearm ecchymosis Neurological: Alert and Oriented x 3 Result Diagrams: 02/10/18 06:50 02/10/18 06:53 Microbiology and Other Data: Microbiology 02/09/18 03:10 Influenza Types A,B Antigen - Final Nasopharyngeal Specimen received for Influenza A/B Molecular testing Assess/Plan/Problems-Billing Assessment: This is a 78yof who was admitted early this morning for pneumonia and anemia. She has improved since arrival with the use of O2. She is on ceftriaxone and azithromycin for tx of CAP. - Patient Problems (1) Pneumonia Code(s): J18.9 - PNEUMONIA, UNSPECIFIED ORGANISM SNOMED Code(s): 555558313 Comment: -Pt continues to be SOB, but is feeling better -Continue O2, titrate to need -Continue Ceftriaxone and Azithromycin -Awaiting Legionella, S. pneumo results -Albuterol prn SOB -Guaifenesin prn cough (2) Anemia Code(s): D64.9 - ANEMIA, UNSPECIFIED SNOMED Code(s): 221706363 Comment: -Pt has chronic anemia; Hgb dipped to 6.7 -Transfuse 1U PRBC (ordered) -Aranesp ordered at pts usual dose of 100mg SQ; discussed with heme/onc -Continue ferrous sulfate -Continue to monitor H/H -Will assess for need for home O2 (3) Stage 3b chronic kidney disease Current Visit: Yes Status: Acute Code(s): N18.3 - CHRONIC KIDNEY DISEASE, STAGE 3 (MODERATE) SNOMED Code(s): 196323315 Comment: -Cr remains at baseline, but increased a small amount -Add low Na to diet -Restart Torsemide tomorrow -F/u on Cr tomorrow (4) Type II diabetes mellitus Comment: -Blood sugar remains elevated and was elevated between 250-350 throughout the night; partially attributed to steroids and illness -Constant carbohydrate diet -Continue Lantus and sliding scale Insulin -Monitor FS throughout day -HA1C add on to lab -Will review BS tomorrow for need for increase in Lantus (5) CHF (congestive heart failure) Code(s): I50.9 - HEART FAILURE, UNSPECIFIED SNOMED Code(s): 51781360 Comment: -Pt does not appear to be in exacerbation -Continue Carvedilol, Norvasc (6) COPD (chronic obstructive pulmonary disease) Code(s): J44.9 - CHRONIC OBSTRUCTIVE PULMONARY DISEASE, UNSPECIFIED SNOMED Code(s): 06453858 Comment: -Continue Albuterol prn (7) HLD (hyperlipidemia) Code(s): E78.5 - HYPERLIPIDEMIA, UNSPECIFIED SNOMED Code(s): 78868831 Comment: -Continue atorvastatin (8) Rheumatoid arthritis Code(s): M06.9 - RHEUMATOID ARTHRITIS, UNSPECIFIED SNOMED Code(s): 98094657 Comment: -Continue hydroxychloroquine; hold Xeljanz (9) GERD (gastroesophageal reflux disease) Code(s): K21.9 - GASTRO-ESOPHAGEAL REFLUX DISEASE WITHOUT ESOPHAGITIS SNOMED Code(s): 872011943 Comment: -Continue Omeprazole (10) Constipation Code(s): K59.00 - CONSTIPATION, UNSPECIFIED SNOMED Code(s): 57215189 Comment: -Medication ordered prn constipation; continue to monitor (11) DVT prophylaxis Code(s): XHK1198 - SNOMED Code(s): 133826553 Comment: -SCD in place (12) Full code status Code(s): Z78.9 - OTHER SPECIFIED HEALTH STATUS SNOMED Code(s): 478154428 Status and Disposition: D/c home with son when stable.
[2018-02-10] MEDS ORDERED: Darbepoetin Alfa* 100 MCG/0.5 ML SYRINGE SUBCUT ONE (09:05)
[2018-02-10] MEDS: Atorvastatin* 20 MG TAB PO SCH (10:15)
[2018-02-10] MEDS: Calcium Carbonate TAB* 1250 MG (CALCIUM 500 MG) PO SCH ×2 (10:15→20:12)
[2018-02-10] MEDS: Omeprazole CAP* 20 MG PO SCH (10:15)
[2018-02-10] MEDS: Carvedilol TAB* 6.25 MG PO SCH ×2 (10:15→20:13)
[2018-02-10] MEDS: Ferrous Sulfate TAB* 325 MG PO SCH (10:15)
[2018-02-10] MEDS: amLODIPine TAB* 5 MG PO SCH (10:15)
[2018-02-10] MEDS: Insulin GLARGINE(*) 1 UNITS UNIT SUBCUT SCH (10:15)
[2018-02-10] MEDS: Insulin LISPRO* 1 UNITS UNIT SUBCUT SCH ×6 (10:16→18:15)
[2018-02-10] MEDS: Hydroxychloroquine TAB* 200 MG PO SCH ×2 (10:18→20:13)
[2018-02-10] MEDS: IPRATROPIUM BR 0.06% BOTH NARES SCH (13:45)
[2018-02-10] MEDS: Diphenoxylat/Atrop 2.5-0.025M* 1 TAB PO PRN (15:13)
[2018-02-11] MEDS: cefTRIAXone(*) 1 GM in NS 0.9% 50 ML* 50 ML IVPB SCH (03:10)
[2018-02-11] MEDS: Azithromycin IV(*) 250 MG in NS 0.9% 250 ML* 250 ML IVPB SCH (03:48)
[2018-02-11] MEDS: Insulin LISPRO* 1 UNITS UNIT SUBCUT SCH ×6 (07:56→18:10)
[2018-02-11] MEDS: Torsemide TAB* 20 MG PO SCH (09:28)
[2018-02-11] MEDS: Insulin GLARGINE(*) 1 UNITS UNIT SUBCUT SCH (09:29)
[2018-02-11] MEDS: Hydroxychloroquine TAB* 200 MG PO SCH ×2 (09:30→21:16)
[2018-02-11] MEDS: Calcium Carbonate TAB* 1250 MG (CALCIUM 500 MG) PO SCH ×2 (09:30→21:16)
[2018-02-11] MEDS: Omeprazole CAP* 20 MG PO SCH (09:30)
[2018-02-11] MEDS: Ferrous Sulfate TAB* 325 MG PO SCH (09:30)
[2018-02-11] MEDS: Atorvastatin* 20 MG TAB PO SCH (09:30)
[2018-02-11] MEDS: Carvedilol TAB* 6.25 MG PO SCH ×2 (09:30→21:16)
[2018-02-11] MEDS: amLODIPine TAB* 5 MG PO SCH (09:30)
[2018-02-11] MEDS: IPRATROPIUM BR 0.06% BOTH NARES SCH (09:31)
--- NOTE | 2018-02-11 09:56 | PN ---
Subjective Date of Service: 02/11/18 Interval History: Pt is sitting at the edge of bed eating breakfast. She states she had a difficult night sleeping last night, as her R nostril kept plugging. She was given nasal spray, which she stated helped only a small amount. Pt reports that she is still feeling very short of breath and tired. Went in to discuss potential for discharge with patient this afternoon and she c /o low back pain. She states that she believes that it is from sitting on the edge of the bed during meals. She states that the pain is on the L side on the lumbar region. She denies falling or injury; denies changes in urine, hematuria , difficulty urinating. She states that she is eager to go home, but would like to make sure that her back pain is under control before leaving. Discharge postponed until tomorrow a.m., pending decrease in back pain. Family History: Unchanged from Admission Objective Active Medications: Acetaminophen (Tylenol Tab*) 650 mg PO Q4H PRN Al Hydrox/Mg Hydrox/Simethicone (Maalox Plus*) 30 ml PO Q6H PRN Albuterol (Ventolin 2.5 Mg/3 Ml Neb.Rivka*) 2.5 mg INH Q4H PRN Amlodipine Besylate (Norvasc Tab*) 5 mg PO DAILY [facility] Atorvastatin Calcium (Lipitor*) 20 mg PO DAILY [facility] Calcium Carbonate (Calcium Carbonate Tab*) 1,250 mg PO BID [facility] Carvedilol (Coreg Tab*) 12.5 mg PO BID [facility] Dextrose (D50w Syringe 50 Ml*) 12.5 gm IV PUSH .FOR FS < 60 - SS PRN Dextrose (D50w Syringe 50 Ml*) 12.5 gm IV PUSH .FOR FS < 60 - SS PRN Diphenoxylate HCl/Atropine (Lomotil Tab*) 1 tab PO DAILY PRN Docusate Sodium (Colace Cap*) 100 mg PO BID PRN Ferrous Sulfate (Ferrous Sulfate Tab*) 325 mg PO DAILY [facility] Guaifenesin (Robitussin*) 5 ml PO Q4H PRN Hydroxychloroquine Sulfate (Plaquenil Tab*) 200 mg PO BID [facility] Ceftriaxone Sodium 1 gm/ (Sodium Chloride) 50 mls @ 200 mls/hr IVPB Q24H [facility] Azithromycin 250 mg/ Sodium (Chloride) 250 mls @ 250 mls/hr IVPB Q24H [facility] Insulin Glargine (Lantus(*)) 5 units SUBCUT DAILY@0800 [facility] Insulin Human Lispro (Humalog*) 0 units SUBCUT AC [facility]; Protocol Insulin Human Lispro (Humalog*) 0 units SUBCUT AC [facility]; Protocol Ipratropium [place] (Ipratropium [place]) 0 ml BOTH NARES DAILY [facility] Omeprazole (Prilosec Cap*) 20 mg PO DAILY@0730 [facility] Ondansetron HCl (Zofran Inj*) 4 mg IV Q4H PRN Senna (Senokot Tab*) 1 tab PO BID PRN Sodium Chloride (Sodium Chloride 0.65% Nasal [place]*) 1 spray BOTH NARES Q4H PRN Torsemide (Demadex*) 10 mg PO DAILY [facility] Vital Signs - 8 hr Vital Signs: Temp Pulse Resp BP Pulse Ox 97.5 F 72 19 133/49 100 02/11/18 07:14 02/11/18 09:15 02/11/18 07:14 02/11/18 07:14 02/11/18 07:14 Oxygen Devices in Use Now: Nasal Cannula Appearance: Pt is sitting up at edge of bed eating breakfast. She is in no acute distress. Eyes: No Scleral Icterus Ears/Nose/Mouth/Throat: NL Teeth, Lips, Gums, Mucous Membranes Moist Neck: NL Appearance and Movements; NL JVP, Trachea Midline Respiratory: Symmetrical Chest Expansion and Respiratory Effort, - - Crackles present at bases of b/l lungs. Cardiovascular: NL Sounds; No Murmurs; No JVD, RRR Abdominal: NL Sounds; No Tenderness; No Distention, - - No CVA tenderness. Lumbar area without erythema, ecchymosis. Nontender to palpation. Extremities: No Clubbing, Cyanosis, - - 1+ pitting edema in b/l LE Neurological: Alert and Oriented x 3 Result Diagrams: 02/11/18 13:16 02/11/18 13:16 Assess/Plan/Problems-Billing Assessment: This is a 78yof who was admitted for pneumonia and anemia. She has improved since arrival with the use of O2. She is on ceftriaxone and azithromycin for tx of CAP. - Patient Problems (1) Pneumonia Code(s): J18.9 - PNEUMONIA, UNSPECIFIED ORGANISM SNOMED Code(s): 035520645 Comment: -Pt continues to be SOB, but is feeling better. Pt continues to be normothermic with WBC WNL. -C/o R nostril irritation and stuffiness. -Continue O2, titrate to need -Humidified O2 or mask, as nares are becoming irritated -Continue Ceftriaxone and Azithromycin -Legionella, S. pneumo negative -Albuterol prn SOB -Guaifenesin prn cough (2) Anemia Code(s): D64.9 - ANEMIA, UNSPECIFIED SNOMED Code(s): 100143544 Comment: -Pt has chronic anemia; Hgb has increased to 9.9 today -Continue ferrous sulfate -Pt callejas not meed requirements for home O2 at this time (3) Stage 3b chronic kidney disease Current Visit: Yes Status: Acute Code(s): N18.3 - CHRONIC KIDNEY DISEASE, STAGE 3 (MODERATE) SNOMED Code(s): 860948252 Comment: -Cr remains at baseline, but has increased -Restarted Torsemide today (4) Type II diabetes mellitus Comment: -Blood sugar has decreased significantly, but is still elevated at a high of 153 ; partially attributed to steroids and illness -Constant carbohydrate diet -Continue Lantus and sliding scale Insulin -Continue to monitor blood sugar -HA1C is 6.5 (5) Low back pain Code(s): M54.5 - LOW BACK PAIN SNOMED Code(s): 901229384 Comment: -Tylenol 650 q4h prn pain is on order (6) CHF (congestive heart failure) Code(s): I50.9 - HEART FAILURE, UNSPECIFIED SNOMED Code(s): 34167750 Comment: -Pt does not appear to be in exacerbation -Continue Carvedilol, Norvasc (7) COPD (chronic obstructive pulmonary disease) Code(s): J44.9 - CHRONIC OBSTRUCTIVE PULMONARY DISEASE, UNSPECIFIED SNOMED Code(s): 41434683 Comment: -Continue Albuterol prn (8) HLD (hyperlipidemia) Code(s): E78.5 - HYPERLIPIDEMIA, UNSPECIFIED SNOMED Code(s): 60857684 Comment: -Continue atorvastatin (9) Rheumatoid arthritis Code(s): M06.9 - RHEUMATOID ARTHRITIS, UNSPECIFIED SNOMED Code(s): 03435622 Comment: -Continue hydroxychloroquine; hold Xeljanz (10) GERD (gastroesophageal reflux disease) Code(s): K21.9 - GASTRO-ESOPHAGEAL REFLUX DISEASE WITHOUT ESOPHAGITIS SNOMED Code(s): 806527578 Comment: -Continue Omeprazole (11) Constipation Code(s): K59.00 - CONSTIPATION, UNSPECIFIED SNOMED Code(s): 27202231 Comment: -Medication ordered prn constipation; continue to monitor (12) DVT prophylaxis Code(s): [id number] - SNOMED Code(s): 710257336 Comment: -SCD in place (13) Full code status Code(s): Z78.9 - OTHER SPECIFIED HEALTH STATUS SNOMED Code(s): 805999447 Status and Disposition: D/c home with son tomorrow, 02/11, around 0900 with son if stable. Discharge orders are in.
[2018-02-11 13:28] LABS: ABS Basophils 0 10^3/ul (0-0.2); ABS Eosinophils 0.2 10^3/ul (0-0.6); ABS Lymphocytes 0.5 10^3/ul (1.0-4.8); ABS Monocytes 0.5 10^3/ul (0-0.8); ABS Neutrophils 6.6 10^3/ul (1.5-7.7); ABS Nucleated RBC 0 10^3/ul; Eosinophil % 2.8 %; Hematocrit 30 % (35-47); Hemoglobin 9.9 g/dl (12.0-16.0); Mean Corpuscular HGB Conc 33 g/dl (31-36); Mean Corpuscular Hemoglobin 31 pg (27-31); Mean Corpuscular Volume 93 fL (80-97); Mean Platelet Volume 9.4 fL (7.4-10.4); Nucleated Red Blood Cells % 0; Platelet Count 141 10^3/ul (150-450); Red Blood Count 3.19 10^6/ul (4.00-5.40); Red Cell Distribution Width 19 % (10.5-15); White Blood Count 7.9 10^3/ul (3.5-10.8)
[2018-02-11 13:58] LABS: BUN/Creatinine Ratio 29.7 (8-20); Calcium 7.1 mg/dL (8.6-10.3); EGFR Non-African American 32.3 (>60); Potassium 4.9 mmol/L (3.5-5.0)
[2018-02-11] MEDS ORDERED: Melatonin 3 MG TAB PO PRN (21:23)
[2018-02-12] MEDS: cefTRIAXone(*) 1 GM in NS 0.9% 50 ML* 50 ML IVPB SCH (02:54)
[2018-02-12] MEDS: Azithromycin IV(*) 250 MG in NS 0.9% 250 ML* 250 ML IVPB SCH (03:29)
--- NOTE | 2018-02-12 05:12 | DS ---
DISCHARGE SUMMARY: DATE OF ADMISSION: 02/09/18 DATE OF DISCHARGE: 02/12/18 PRIMARY CARE PHYSICIAN: Vanesa Alexandra NP ATTENDING PHYSICIAN: Cami Page MD * (DICTATED BY JYOTI BRADEN) PRIMARY DIAGNOSES: 1. Pneumonia. 2. Chronic anemia. SECONDARY DIAGNOSES: 1. Hypertension. 2. Coronary artery disease. 3. Hyperlipidemia. 4. Osteoporosis. 5. Rheumatoid arthritis. 6. Gastroesophageal reflux disease. 7. Congestive heart failure. 8. Chronic obstructive pulmonary disease. 9. Stage 3 chronic kidney disease. STUDIES WHILE IN THE HOSPITAL: Chest x-ray from 02/09/18. Impression: Patchy consolidation of the right upper and mid lung field. DISCHARGE MEDICATIONS: [place] Medications: 1. Azithromycin 500 mg p.o. daily x5 days. 2. Amoxicillin 1 g p.o. 3 times a day x5 days. Continued Home Medications: 1. Albuterol inhaler 2 puffs q.6 hours p.r.n. 2. Amlodipine 5 mg p.o. daily. 3. Ascorbic acid 500 mg p.o. daily. 4. Aspirin 81 mg p.o. daily. 5. Caltrate 600+D plus tablet 1 tab b.i.d. 6. Calcium carbonate 1000 mg p.o. b.i.d. 7. Carvedilol 12.5 mg p.o. b.i.d. 8. Vitamin B12 tab 500 mcg p.o. b.i.d. 9. Lomotil tab 1 tab p.o. daily p.r.n. 10. Ferrous sulfate 325 p.o. daily. 11. Guaifenesin ER tab 600 mg p.o. daily. 12. Hydroxychloroquine tab 400 mg p.o. daily. 13. Insulin Humulin 70/30, 20 units subcutaneous every morning; 10 units subcutaneous every evening. 14. Ipratropium bromide 0.06% both nares daily. 15. Levothyroxine 25 mcg p.o. daily. 16. Lisinopril 2.5 mg p.o. daily. 17. Nitro 0.4 mg sublingual every 5 minutes p.r.n. angina. 18. Omeprazole 40 mg p.o. daily. 19. Protein supplement 946 mL p.o. daily. 20. Saline nasal spray 0.65 one spray both nares q.4 hours. 21. Simvastatin 40 mg p.o. daily. 22. Xeljanz 5 mg p.o. b.i.d. HISTORY OF PRESENT ILLNESS/HOSPITAL COURSE: Ms. Carter is a 78-year-old female who presented to the ER on 02/09/18 with acute onset shortness of breath. Past medical history is positive for chronic obstructive pulmonary disease and chronic anemia. In the ER, chest x-ray revealed patchy infiltrates. The patient was given 1 L normal saline, 125 mg Solu-Medrol, 1 g of ceftriaxone, 500 mg of azithromycin and a DuoNeb. She was then admitted to the hospitalist service. She was found to be anemic with a hemoglobin around 8 , which was around her baseline for chronic anemia. Pt has DM II and was placed on sliding scale insulin. On 02/10/18, her hemoglobin dropped to 6.7; one unit of packed red blood cell was transfused. The patient receives Aranesp 100 mg subcutaneously every month from Dr. Broderick. After talking to Heme/Onc, it was decided that she would benefit from a dose of this medication as an inpatient on 02/10/18. Her blood sugars were elevated throughout the night and day, and Lantus 5 units a.m. was ordered. The patient continued to have shortness of breath and was on nasal cannula with saturations in the high 90s to 100 while on oxygen. She continues to deny fever. She had chills but states she is always cold. The patient was seen in the afternoon after transfusion of blood and she states she feels better. She is smiling upon entering the room. Next day, 02/11/18, the patient was seen and reports to feeling better. Lung sounds had improved since the previous day. The patient states that the right nostril was irritating her from the oxygen from the nasal cannula and she was switched to humidified air. Medications for pneumonia, azithromycin and ceftriaxone, were continued. Anemia had improved to 9.9, which is within the patient's baseline range. Her diabetes had stabilized with the addition of Lantus the day prior, her high blood sugar being 153. The patient admits that she feels better. She still feels short of breath, but overall is feeling better. She states that her left lower back is painful and requests to stay one more day and her son will pick her up at 9 a.m. on 02/12/18. This was agreed to while we monitor the patient's back pain. Ms. Carter is stable for discharge home with her son. PHYSICAL EXAMINATION: Vital Signs: Temperature 97.9, pulse rate 61, respiratory rate 14, oxygen saturation 96 on room air, blood pressure 120/42. DISCHARGE PLAN: Ms. Carter will be discharged to home. ACTIVITY: As tolerated. DIET: ADA/diabetic diet, heart-healthy. MEDICATIONS: As above. FOLLOWUP: -Follow up with Dr. Broderick in 4 to 7 days. -Follow up with primary care physician, Vanesa Alexandra in 4 to 7 days. -Ms. Carter should return to the ER or the nearest hospital if she experiences any worsening of symptoms, shortness of breath, lightheadedness, dizziness, chest discomfort, high fevers, chills, night sweats, loss of consciousness, or any other worrisome signs or symptoms. This is a summarized report of a complex medical history and hospital stay. For further details, please see the entire medical record. TIME SPENT: Approximately 50 minutes was spent on this discharge, greater than half of that time spent [id number] with the patient discussing discharge plans and instructions. JYOTI BRADEN [id number]/CPS #: [id number] MTDD
[2018-02-12 06:06] VITALS: BP 119/43
[2018-02-12] MEDS: Carvedilol TAB* 6.25 MG PO SCH (08:15)
[2018-02-12] MEDS: Diphenoxylat/Atrop 2.5-0.025M* 1 TAB PO PRN (08:15)
[2018-02-12] MEDS: Hydroxychloroquine TAB* 200 MG PO SCH (08:16)
[2018-02-12] MEDS: Torsemide TAB* 20 MG PO SCH (08:16)
[2018-02-12] MEDS: Atorvastatin* 20 MG TAB PO SCH (08:16)
[2018-02-12] MEDS: amLODIPine TAB* 5 MG PO SCH (08:17)
[2018-02-12] MEDS: Calcium Carbonate TAB* 1250 MG (CALCIUM 500 MG) PO SCH (08:18)
[2018-02-12] MEDS: Ferrous Sulfate TAB* 325 MG PO SCH (08:18)
[2018-02-12] MEDS: Omeprazole CAP* 20 MG PO SCH (08:25)
[2018-02-12] MEDS: Insulin LISPRO* 1 UNITS UNIT SUBCUT SCH ×2 (09:00→09:03)
[2018-02-12] MEDS: Insulin GLARGINE(*) 1 UNITS UNIT SUBCUT SCH (09:00)
[2018-02-12] MEDS: IPRATROPIUM BR 0.06% BOTH NARES SCH (09:03)
== END 2018-02-12 09:40 | disposition home or self-care (01) | DRG 194 ==
LOC: ED 01:51 → MED 05:16
PROVIDERS: ADMIT Pediatrics; ATTEND Student in an Organized Health Care Education/Training Program
PROC: 30233N1 Transfusion of Nonautologous Red Blood Cells into Peripheral Vein, Percutaneous Approach (ICD-10-PCS; principal; 2018-02-10)
DX: J18.9 Pneumonia, unspecified organism (principal); I13.0 Hypertensive heart and chronic kidney disease with heart failure and stage 1 through stage 4 chronic kidney disease, or unspecified chronic kidney disease; J44.0 Chronic obstructive pulmonary disease with (acute) lower respiratory infection; D89.0 Polyclonal hypergammaglobulinemia; E11.22 Type 2 diabetes mellitus with diabetic chronic kidney disease; I25.10 Atherosclerotic heart disease of native coronary artery without angina pectoris; I50.9 Heart failure, unspecified; M19.90 Unspecified osteoarthritis, unspecified site; M06.9 Rheumatoid arthritis, unspecified; E03.9 Hypothyroidism, unspecified; I48.2 Chronic atrial fibrillation; N18.3 Chronic kidney disease, stage 3 (moderate); K59.00 Constipation, unspecified; K21.9 Gastro-esophageal reflux disease without esophagitis; E78.5 Hyperlipidemia, unspecified; D64.9 Anemia, unspecified; E11.319 Type 2 diabetes mellitus with unspecified diabetic retinopathy without macular edema; M71.22 Synovial cyst of popliteal space [Baker], left knee; M81.0 Age-related osteoporosis without current pathological fracture; M54.5 Low back pain; F32.9 Major depressive disorder, single episode, unspecified; Z80.3 Family history of malignant neoplasm of breast; Z90.710 Acquired absence of both cervix and uterus; Z98.42 Cataract extraction status, left eye; Z87.891 Personal history of nicotine dependence; Z86.718 Personal history of other venous thrombosis and embolism; Z95.2 Presence of prosthetic heart valve; Z98.84 Bariatric surgery status; Z87.11 Personal history of peptic ulcer disease; Z98.41 Cataract extraction status, right eye; Z88.5 Allergy status to narcotic agent; Z88.2 Allergy status to sulfonamides; Z88.1 Allergy status to other antibiotic agents; Z90.49 Acquired absence of other specified parts of digestive tract; Z86.19 Personal history of other infectious and parasitic diseases; Z82.49 Family history of ischemic heart disease and other diseases of the circulatory system; Z83.3 Family history of diabetes mellitus; Z95.0 Presence of cardiac pacemaker; Z79.82 Long term (current) use of aspirin; Z79.4 Long term (current) use of insulin
CPT/HCPCS: 36415; 71045; 80048; 80053; 82803; 83036; 83605; 83880; 84484; 85025; 85610; 86140; 86850; 86900; 86901; 86922; 87040; 87899; 93005; 99284; A9270-GY; J0456; J0696; J0881; J2930; P9040

== ENCOUNTER 2018-02-16 13:54 | Emergency (ER) | payer MEDICARE, MEDICAID ==
--- NOTE | 2018-02-16 16:26 | ED ---
GI/ HPI - HPI Summary HPI Summary: This patient is a 78 year old female presenting to [facility] accompanied by family with a chief complaint of urinary problems for the past few days. Patient states that she is unable to urinate properly and has to push very hard. She states that she is retaining fluid in her lower extremities and they are swelling up significantly. As a result, patient is fatigued and weak. The pain is rated 0/10 in severity. Symptoms aggravated by nothing. Symptoms alleviated by nothing. - History of Current Complaint Chief Complaint: EDGeneral Time Seen by Provider: 02/16/18 16:11 Stated Complaint: WEAKNESS, DIFF BREATHING Hx Obtained From: Patient Onset/Duration: Still Present Pain Intensity: 0 Associated Signs and Symptoms: Positive: Other: - lower extremity edema, fatigue , weakness - Additional Pertinent History Primary Care Physician: STEVIE - Allergy/Home Medications Allergies/Adverse Reactions: Allergies Allergy/AdvReac Type Severity Reaction Status Date / Time codeine Allergy Rash Verified 12/28/17 09:32 levofloxacin [From Levaquin] Allergy Agitation Verified 12/28/17 09:32 Sulfa (Sulfonamide Allergy Hives Verified 12/28/17 09:32 Antibiotics) PMH/Surg Hx/FS Hx/Imm Hx Previously Healthy: No Endocrine/Hematology History: Reports: Hx Anticoagulant Therapy, Hx Blood Transfusions, Hx Diabetes, Hx Thyroid Disease, Hx Anemia, 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 Denies: Hx Systemic Lupus Erythematosus Cardiovascular History: Reports: Hx Angina, Hx Auto Implanted Cardiovert Defib, Hx Congestive Heart Failure, Hx Coronary Artery Disease, Hx Deep Vein Thrombosis - Man-made clot caused by nurse 40+ years ago, Hx Hypercholesterolemia, Hx Hypertension, Hx Pacemaker/ICD, Hx Valvular Heart Disease, Other Cardiovascular Problems/Disorders - Aortic valve replacement, bradycardia, cardiac catherization Denies: Hx Aneurysm, Hx Angioplasty, Hx Cardiac Arrest, Hx Cardiomegaly, Hx Congenital Heart Disease, Hx Embolism, Hx Myocardial Infarction, Hx Rheumatic Fever, Hx Syncope Respiratory History: Reports: Hx Asthma, Hx Chronic Obstructive Pulmonary Disease (COPD), Hx Pneumonia Denies: Hx Lung Cancer, Hx Sleep Apnea GI History: Reports: Hx Ulcer - Peptic ulcer disease, Other GI Disorders - gastric bypass Denies: Hx Gastroesophageal Reflux Disease History: Reports: Other Problems/Disorders - UTIs, CKD Denies: Hx Kidney Stones, Hx Renal Disease Musculoskeletal History: Reports: Hx Arthritis, Hx Rheumatoid Arthritis, Hx Back Problems, Hx Osteoporosis Denies: Hx Gout, Hx Orthopedic Injury Sensory History: Reports: Hx Contacts or Glasses, Hx Vision Problem Denies: Hx Cataracts, Hx Eye Injury, Hx Eye Prosthesis, Hx Deafness, Hx Hearing Aid, Hx Hearing Problem, Other Sensory Impairments Opthamlomology History: Reports: Hx Contacts or Glasses, Hx Vision Problem Denies: Hx Cataracts, Hx Eye Injury, Hx Eye Prosthesis, Other Sensory Impairments Neurological History: Reports: Hx Headaches Denies: Hx Dementia, Hx Developmental Delay, Hx Migraine, Hx Nerve Disease, Hx Seizures, Hx Spinal Cord Injury, Hx Transient Ischemic Attacks (TIA), Other Neuro Impairments/Disorders Psychiatric History: Reports: Hx Depression - Cancer History Cancer Type, Location and Year: Two sisters had breast cancer Hx Chemotherapy: No Hx Radiation Therapy: No - Surgical History Surgery Procedure, Year, and Place: Hysterectomy. Appendectomy. Tonsillectomy. Bilateral Knee Arthroscopy. Diabetic Retinopathy-eye surgery. GASTRIC BYPASS. Bilateral Cataract removal. Sinus Surgery. Florentin-en-y gastric bypass, 2007. Cholecystecomy 2009. Carpal Tunnel Surgery. Aortic Valve replacement, 2016, [facility] Anesthesia Reactions: No - Immunization History Date of Tetanus Vaccine: utd Date of Influenza Vaccine: utd Infectious Disease History: No Infectious Disease History: Reports: Hx Clostridium Difficile - History Denies: Hx Hepatitis, Hx Human Immunodeficiency Virus (HIV), Hx of Known/ Suspected MRSA, Hx Shingles, Hx Tuberculosis, Hx Known/Suspected VRE, Hx Known/ Suspected VRSA, History Other Infectious Disease, Traveled Outside the [place] in Last 30 Days - Family History Known Family History: Positive: Cardiac Disease, Diabetes, Other - Breast Cancer - Social History Alcohol Use: None Hx Substance Use: No Substance Use Type: Reports: None Hx Tobacco Use: Yes - quit > 20 yrs ago Smoking Status (MU): Former Smoker Type: Cigarettes Have You Smoked in the Last Year: No Review of Systems Negative: Fever Negative: Palpitations Positive: Cough. Negative: Shortness Of Breath Negative: Abdominal Pain, Vomiting Positive: other - unable to urinate Positive: Edema - bilateral lower extremity Positive: Weakness All Other Systems Reviewed And Are Negative: Yes Physical Exam - Summary Physical Exam Summary: Appearance: Well appearing, no pain distress Skin: warm, dry, reflects adequate perfusion Head/face: normal Eyes: EOMI, NEMO ENT: mucous membranes moist Neck: supple, non-tender Respiratory: Crackles in right chest, mid and upper lobe Cardiovascular: RRR, pulses symmetrical, pacemaker in right chest Abdomen: non-tender, soft Bowel Sounds: present Extremities: 3+ lower extremity pitting edema Musculoskeletal: normal, strength/ROM intact Neuro: normal, sensory motor intact, A&Ox3 Triage Information Reviewed: Yes Vital Signs On Initial Exam: Initial Vitals Temp Pulse Resp BP Pulse Ox 98.6 F 62 16 137/52 98 02/16/18 14:23 02/16/18 14:23 02/16/18 14:23 02/16/18 14:23 02/16/18 14:23 Vital Signs Reviewed: Yes Diagnostics - Vital Signs Vital Signs Temp Pulse Resp BP Pulse Ox 02/16/18 14:23 98.6 F 62 16 137/52 98 - Laboratory Result Diagrams: 02/16/18 16:57 02/16/18 16:57 Lab Statement: Any lab studies that have been ordered have been reviewed, and results considered in the medical decision making process. - Radiology CXR Radiology Interpretation Completed By: Radiologist Summary of Radiographic Findings: CXR reveals, per radiologist, IMPRESSION: THERE IS BEEN IMPROVED AERATION OF THE RIGHT LUNG APEX WITH MINIMAL PATCHY ATELECTASIS VERSUS CONSOLIDATION OF THE RIGHT LOWER LUNG. ED physician has reviewed this radiology report. - EKG 1703 Cardiac Rate: Other Rate Summary of EKG Findings: An EKG, taken 1703, reveals Ventricularly paced (63 BPM ), left axis deviation, nonspecific [facility] Course/Dx - Course Course Of Treatment: Patient is chronically ill with multiple recent hospitalizations and ER visits. She was recently discharged for pneumonia and complaints today of increased swelling in the legs. Her creatinine is elevated over baseline at 1.85. I suggested some small fluids as well as placement of compression garments. The patient did not want to do any IV fluids. She was offered admission and declined. DEVAN stockings were placed. She will hydrate well at home. She is instructed to follow up closely with her primary care physician and have recheck of her renal function. - Diagnoses Differential Diagnoses - Female: Other - Persistent pneumonia, sepsis, CHF, fluid overload from IV fluids Provider Diagnoses: Acute on chronic renal failure, History of pneumonia, Peripheral edema Discharge - Sign-Out/Discharge Documenting (check all that apply): Patient Departure - Discharge Plan Condition: Improved Disposition: HOME Patient Education Materials: Chronic Kidney Disease (ED), Leg Edema (ED) Referrals: Vanesa Alexandra, [facility] [Primary Care Provider] - Additional Instructions: Avoid salt diet. Stay well-hydrated. Compression garments every day. Call your doctor first thing in the morning to schedule prompt follow-up. Return with weakness, increase fluids, difficulty breathing, new symptoms or other concerns as discussed. - Billing Disposition and Condition Condition: IMPROVED Disposition: Home - Attestation Statements Document Initiated by Mayra: Yes Documenting Scribe: Quincy Waters Provider For Whom Mayra is Documenting (Include Credential): Cy Brian MD Scribe Attestation: Quincy Brown scribed for Cy Brian MD on 02/16/18 at 1942. Scribe Documentation Reviewed: Yes Provider Attestation: The documentation as recorded by the Quincy jc accurately reflects the service I personally performed and the decisions made by me, Cy Brian MD Status of Scribe Document: Viewed
[2018-02-16 17:24] LABS: Albumin 3.2 g/dL (3.2-5.2); Albumin/Globulin Ratio 0.9 (1-3); BUN/Creatinine Ratio 22.3 (8-20); Calcium 7.3 mg/dL (8.6-10.3); EGFR Non-African American 26.5 (>60); Globulin 3.4 g/dL (2-4); Magnesium 2.1 mg/dL (1.9-2.7); Potassium 4.9 mmol/L (3.5-5.0); Total Bilirubin 0.3 mg/dL (0.2-1.0); Total Protein 6.6 g/dL (6.4-8.9)
[2018-02-16] MEDS ORDERED: NS 0.9% 1000 ML* 1,000 ML IV ONE (17:27)
[2018-02-16 17:31] LABS: ABS Basophils 0 10^3/ul (0-0.2); ABS Eosinophils 0.2 10^3/ul (0-0.6); ABS Lymphocytes 0.6 10^3/ul (1.0-4.8); ABS Monocytes 0.5 10^3/ul (0-0.8); ABS Neutrophils 4.4 10^3/ul (1.5-7.7); ABS Nucleated RBC 0 10^3/ul; Eosinophil % 3.2 %; Hematocrit 27 % (35-47); Hemoglobin 8.9 g/dl (12.0-16.0); Mean Corpuscular HGB Conc 34 g/dl (31-36); Mean Corpuscular Hemoglobin 31 pg (27-31); Mean Corpuscular Volume 93 fL (80-97); Mean Platelet Volume 9.3 fL (7.4-10.4); Nucleated Red Blood Cells % 0; Platelet Count 182 10^3/ul (150-450); Red Blood Count 2.85 10^6/ul (4.00-5.40); Red Cell Distribution Width 18 % (10.5-15); White Blood Count 5.7 10^3/ul (3.5-10.8)
[2018-02-16 18:06] LABS: TSH (Thyroid Stimulating Horm) 5.36 mcIU/mL (0.34-5.60)
[2018-02-16 18:42] VITALS: BP 165/66
== END 2018-02-16 18:40 | disposition home or self-care (01) ==
LOC: ED 13:54
DX: N17.9 Acute kidney failure, unspecified (principal); N18.9 Chronic kidney disease, unspecified; R60.0 Localized edema; R53.83 Other fatigue; R53.1 Weakness; Z87.01 Personal history of pneumonia (recurrent); Z88.2 Allergy status to sulfonamides; Z79.01 Long term (current) use of anticoagulants; Z87.891 Personal history of nicotine dependence
CPT/HCPCS: 36415; 71046; 80053; 83605; 83735; 83880; 84443; 84484; 85025; 93005; 99282

== ENCOUNTER 2018-02-18 15:24 | Inpatient (IN) | payer MEDICARE, MEDICAID ==
--- NOTE | 2018-02-18 17:10 | ED ---
Shortness of Breath - HPI Summary HPI Summary: The patient is a 78 y/o F presenting to [facility] with a chief complaint of SOB starting today and BLE edema gradual worsening over the past few days. She was admitted to [facility] for pneumonia and dehydration from 02/08-02/11, and then she came to the ED on 02/16 for edema, but she declined admission. She presented to the ED today because Antonietta Storm told her to come here. The pt is worried about the fluid accumulation because of her CHF. - History of Current Complaint Chief Complaint: EDShortnessOfBreath Time Seen by Provider: 02/18/18 17:02 Hx Obtained From: Patient Onset/Duration: Sudden Onset - SOB today, Gradual Onset - past few days, Lasting Days - two, Still Present Timing: Constant Current Severity: Moderate Alleviating Factors: Nothing Associated Signs & Symptoms: Edema - in BLE - Allergy/Home Medications Allergies/Adverse Reactions: Allergies Allergy/AdvReac Type Severity Reaction Status Date / Time codeine Allergy Rash Verified 02/18/18 15:37 levofloxacin [From Levaquin] Allergy Agitation Verified 02/18/18 15:37 Sulfa (Sulfonamide Allergy Hives Verified 02/18/18 15:37 Antibiotics) PMH/Surg Hx/FS Hx/Imm Hx Endocrine/Hematology History: Reports: Hx Anticoagulant Therapy, Hx Blood Transfusions, Hx Diabetes, Hx Thyroid Disease, Hx Anemia, 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 Denies: Hx Systemic Lupus Erythematosus Cardiovascular History: Reports: Hx Angina, Hx Auto Implanted Cardiovert Defib, Hx Congestive Heart Failure, Hx Coronary Artery Disease, Hx Deep Vein Thrombosis - Man-made clot caused by nurse 40+ years ago, Hx Hypercholesterolemia, Hx Hypertension, Hx Pacemaker/ICD, Hx Valvular Heart Disease, Other Cardiovascular Problems/Disorders - Aortic valve replacement, bradycardia, cardiac catherization Denies: Hx Aneurysm, Hx Angioplasty, Hx Cardiac Arrest, Hx Cardiomegaly, Hx Congenital Heart Disease, Hx Embolism, Hx Myocardial Infarction, Hx Rheumatic Fever, Hx Syncope Respiratory History: Reports: Hx Asthma, Hx Chronic Obstructive Pulmonary Disease (COPD), Hx Pneumonia Denies: Hx Lung Cancer, Hx Sleep Apnea GI History: Reports: Hx Ulcer - Peptic ulcer disease, Other GI Disorders - gastric bypass Denies: Hx Gastroesophageal Reflux Disease History: Reports: Other Problems/Disorders - UTIs, CKD Denies: Hx Kidney Stones, Hx Renal Disease Musculoskeletal History: Reports: Hx Arthritis, Hx Rheumatoid Arthritis, Hx Back Problems, Hx Osteoporosis Denies: Hx Gout, Hx Orthopedic Injury Sensory History: Reports: Hx Contacts or Glasses, Hx Vision Problem Denies: Hx Cataracts, Hx Eye Injury, Hx Eye Prosthesis, Hx Deafness, Hx Hearing Aid, Hx Hearing Problem, Other Sensory Impairments Opthamlomology History: Reports: Hx Contacts or Glasses, Hx Vision Problem Denies: Hx Cataracts, Hx Eye Injury, Hx Eye Prosthesis, Other Sensory Impairments Neurological History: Reports: Hx Headaches Denies: Hx Dementia, Hx Developmental Delay, Hx Migraine, Hx Nerve Disease, Hx Seizures, Hx Spinal Cord Injury, Hx Transient Ischemic Attacks (TIA), Other Neuro Impairments/Disorders Psychiatric History: Reports: Hx Depression - Cancer History Cancer Type, Location and Year: Two sisters had breast cancer Hx Chemotherapy: No Hx Radiation Therapy: No - Surgical History Surgery Procedure, Year, and Place: Hysterectomy. Appendectomy. Tonsillectomy. Bilateral Knee Arthroscopy. Diabetic Retinopathy-eye surgery. GASTRIC BYPASS. Bilateral Cataract removal. Sinus Surgery. Florentin-en-y gastric bypass, 2007. Cholecystecomy 2009. Carpal Tunnel Surgery. Aortic Valve replacement, 2016, [facility] Anesthesia Reactions: No - Immunization History Date of Tetanus Vaccine: utd Date of Influenza Vaccine: utd Infectious Disease History: No Infectious Disease History: Reports: Hx Clostridium Difficile - History Denies: Hx Hepatitis, Hx Human Immunodeficiency Virus (HIV), Hx of Known/ Suspected MRSA, Hx Shingles, Hx Tuberculosis, Hx Known/Suspected VRE, Hx Known/ Suspected VRSA, History Other Infectious Disease, Traveled Outside the [place] in Last 30 Days - Family History Known Family History: Positive: Cardiac Disease, Diabetes, Other - Breast Cancer - Social History Alcohol Use: None Hx Substance Use: No Substance Use Type: Reports: None Hx Tobacco Use: Yes - quit > 20 yrs ago Smoking Status (MU): Former Smoker Type: Cigarettes Have You Smoked in the Last Year: No Review of Systems Positive: Shortness Of Breath Positive: Edema - BLE All Other Systems Reviewed And Are Negative: Yes Physical Exam - Summary Physical Exam Summary: Appearance: The patient is well-nourished in no acute distress and in no acute pain. Skin: The skin is warm and dry and skin color reflects adequate perfusion. HEENT: The head is normocephalic and atraumatic. The pupils are equal and reactive. The conjunctivae are clear and without drainage. Nares are patent and without drainage. Mouth reveals moist mucous membranes and the throat is without erythema and exudate. The external ears are intact. The ear canals are patent and without drainage. The tympanic membranes are intact. Neck: The neck is supple with full range of motion and non-tender. There are no carotid bruits. There is no neck vein distension. Respiratory: Chest is non-tender. Lungs present crackles one-third to a quarter bilaterally, worse on right than left. Cardiovascular: Heart is regular rate and rhythm. There is no murmur or rub auscultated. There is pitting edema bilaterally and pulses are symmetrical and equal. Abdomen: The abdomen is soft and non-tender. There are normal bowel sounds heard in all four quadrants and there is no organomegaly palpated. Musculoskeletal: There is no back tenderness noted. Extremities are non-tender with full range of motion. There is good capillary refill. There is pitting edema bilaterally, but no calf tenderness is elicited. Neurological: Patient is alert and oriented to person, place and time. The patient has symmetrical motor strength in all four extremities. Cranial nerves are grossly intact. Deep tendon reflexes are symmetrical and equal in all four extremities. Psychiatric: The patient has an appropriate affect and does not exhibit any anxiety or depression. Triage Information Reviewed: Yes Vital Signs On Initial Exam: Initial Vitals Temp Pulse Resp BP Pulse Ox 98.4 F 64 20 143/59 96 02/18/18 15:33 02/18/18 15:33 02/18/18 15:33 02/18/18 15:33 02/18/18 15:33 Vital Signs Reviewed: Yes Diagnostics - Vital Signs Vital Signs Temp Pulse Resp BP Pulse Ox 02/18/18 15:33 98.4 F 64 20 143/59 96 - Laboratory Result Diagrams: 02/19/18 05:27 02/19/18 05:27 Lab Statement: Any lab studies that have been ordered have been reviewed, and results considered in the medical decision making process. - Radiology CXR Radiology Interpretation Completed By: Radiologist Summary of Radiographic Findings: Pulmonary interstitial edema with bibasilar atelectasis versus consolidation. ED physician has reviewed this report. - EKG 16:01 Cardiac Rate: Other Rate - Ventricular paced, 67BPM EKG Rhythm: Sinus Rhythm Summary of EKG Findings: Ventricular paced complexes. Course/Dx - Course Course Of Treatment: Ms. Carter presented clear with some respiratory insufficiency. She has been battling for several weeks and has been seen and treated for COPD and also CHF. She also has a wet cough. She is unclear about her fevers. Here she appeared to be in mild respiratory distress at rest in the [facility]. She had some JVD and crackles bilaterally. Chest x-ray did reveal pulmonary edema however it also looked to have a left lower lobe infiltrate. She had no leukocytosis but was given antibiotics while waiting for the rest of her labs. Her BNP and troponin were both elevated and the hospitals were contacted for admission. - Diagnoses Provider Diagnoses: CHF (congestive heart failure), Respiratory insufficiency, Pneumonia - Physician Notifications Discussed Care of Patient With: Dr. Page - Critical Care Time Critical Care Time: 30-74 min Discharge - Sign-Out/Discharge Documenting (check all that apply): Patient Departure - Discharge Plan Condition: Fair Disposition: ADMITTED TO [facility] - Billing Disposition and Condition Condition: FAIR Disposition: Admitted to [facility] - Attestation Statements Document Initiated by Beanibe: Yes Documenting Scribe: Jessica Murillo Provider For Whom Mayra is Documenting (Include Credential): Dr. Casper Moctezuma MD Scribe Attestation: Jessica Brown scribed for Dr. Casper Moctezuma MD on 02/19/18 at 0748. Scribe Documentation Reviewed: Yes Provider Attestation: The documentation as recorded by the Jessica jc accurately reflects the service I personally performed and the decisions made by me, Dr. Casper Moctezuma MD Status of Scribe Document: Viewed
[2018-02-18] MEDS ORDERED: Azithromycin IV(*) 500 MG in NS 0.9% 250 ML* 250 ML IVPB ONE (18:23)
[2018-02-18] MEDS ORDERED: cefTRIAXone(*) 1 GM in NS 0.9% 50 ML* 50 ML IVPB ONE (18:23)
[2018-02-18 18:35] LABS: ABS Basophils 0 10^3/ul (0-0.2); ABS Eosinophils 0.1 10^3/ul (0-0.6); ABS Lymphocytes 0.4 10^3/ul (1.0-4.8); ABS Monocytes 0.4 10^3/ul (0-0.8); ABS Neutrophils 5.3 10^3/ul (1.5-7.7); ABS Nucleated RBC 0 10^3/ul; Eosinophil % 0.8 %; Hematocrit 28 % (35-47); Hemoglobin 9.3 g/dl (12.0-16.0); Lymphocyte % 7.1 %; Mean Corpuscular HGB Conc 33 g/dl (31-36); Mean Corpuscular Hemoglobin 31 pg (27-31); Mean Corpuscular Volume 94 fL (80-97); Mean Platelet Volume 9.4 fL (7.4-10.4); Nucleated Red Blood Cells % 0.1; Platelet Count 162 10^3/ul (150-450); Red Blood Count 3.02 10^6/ul (4.00-5.40); Red Cell Distribution Width 18 % (10.5-15); White Blood Count 6.3 10^3/ul (3.5-10.8)
[2018-02-18 18:42] LABS: INR 1.06 (0.77-1.02)
[2018-02-18 18:51] LABS: Albumin 3.3 g/dL (3.2-5.2); Albumin/Globulin Ratio 0.9 (1-3); BUN/Creatinine Ratio 21.4 (8-20); Calcium 7.3 mg/dL (8.6-10.3); EGFR Non-African American 24.6 (>60); Globulin 3.5 g/dL (2-4); Potassium 4.9 mmol/L (3.5-5.0); Total Bilirubin 0.4 mg/dL (0.2-1.0); Total Protein 6.8 g/dL (6.4-8.9)
[2018-02-18] MEDS ORDERED: Furosemide IV* 10 MG/ML 10 ML VIAL (100 MG) IV ONE (19:48)
[2018-02-18] MEDS ORDERED: Acetaminophen TAB* 325 MG PO PRN (19:54)
[2018-02-18] MEDS ORDERED: Nitroglycerin TAB 0.4 MG* 0.4 MG TAB SL PRN (19:56)
[2018-02-18] MEDS ORDERED: Dextrose 50% Syringe 50 ML* 25 GM/50 ML SYRINGE IV PUSH PRN (20:11)
[2018-02-18] MEDS: Albuterol HFA INHALER* 8 gm MDI INH PRN (21:22)
[2018-02-18] MEDS: Heparin VIAL(*) 5000 UNITS/ML VIAL (FIVE THOUSAND) SUBCUT SCH (21:44)
[2018-02-18] MEDS: Carvedilol TAB* 6.25 MG PO SCH (21:44)
[2018-02-18] MEDS: Cyanocobalamin TAB* 500 MCG PO SCH (21:44)
--- NOTE | 2018-02-18 22:41 | HP ---
CC: Vanesa Chen NP* [facility] H[facility] PHYSICAL: DATE OF ADMISSION: 02/18/18 PRIMARY CARE PROVIDER: Vanesa Chen NP. ATTENDING PHYSICIAN: Dr. De La Rosa* (dictation provided by Teena Leal NP). CHIEF COMPLAINT: Shortness of breath. HISTORY OF PRESENT ILLNESS: Ms. Carter is a 78-year-old female with a past medical history of recent admission to our hospital, discharged on 02/11/18 after treatment for pneumonia with COPD exacerbation. She also has a history of transaortic valve replacement, CAD, polyclonal hypergammaglobulinemia with chronic anemia, hypergammaglobulinemia, COPD, chronic AFib, severe peptic ulcer disease, CKD stage 3, rheumatoid arthritis on immunosuppressants, hypertension, history of Florentin-en-Y gastric bypass, pacemaker. Ms. Carter states that she has not been feeling all that well since her discharge on 02/11/18. She seems to indicate that she always had shortness of breath, which would not be unusual given her history. She came to our hospital to the emergency room on 02/16/18 out of concern for shortness of breath. We recommended that she be admitted to the hospital, but she refused to stay. We suspected at that time that she likely had CHF. The patient followed up with her primary care physician, Vanesa Chen today, and based on her description of shortness of breath, difficulty sleeping at night and lower extremity edema, she also suspected that the patient has CHF and strongly recommended that she come to the emergency room for evaluation. Ms. Carter is evaluated today. She was found to have a chest x-ray consistent with CHF. Her BNP is 1062. Her CRP is 82, which is actually up from previous admission when it was 1.99. Her troponin is 0.05. She had no leukocytosis, no fever and her vitals were stable. She is currently not hypoxic. PAST MEDICAL HISTORY: 1. COPD. 2. Recent admission with discharge on 02/11/18 after treatment for pneumonia. 3. History of transaortic valve replacement. 4. CAD. 5. Polyclonal hypergammaglobulinemia. 6. History of chronic anemia with frequent transfusions. 7. History of chronic AFib. 8. History of severe peptic ulcer disease. 9. CKD stage 3. 10. Rheumatoid arthritis, on immunosuppressants. 11. Hypothyroidism. 12. Hypertension. 13. Hyperlipidemia. 14. History of status post pacemaker placement. 15. History of Florentin-en-Y gastric bypass surgery. 16. Diabetic retinopathy. 17. History of Roy's cyst, left leg. 18. Type 2 diabetes, insulin dependent. MEDICATIONS: Today are as follows: 1. Pantoprazole 40 mg p.o. daily. 2. Guaifenesin ER 600 mg p.o. daily. 3. Amlodipine 5 mg p.o. daily. 4. Torsemide 10 mg p.o. daily. 5. Xeljanz 5 mg p.o. b.i.d. 6. Simvastatin 40 mg p.o. daily. 7. Saline nasal spray 1 spray both nares q.4 hours p.r.n. 8. Protein supplement daily. 9. Nitroglycerin sublingually as needed. 10. Lisinopril 2.5 mg p.o. daily. 11. Levothyroxine 25 micrograms p.o. daily. 12. Ipratropium 0.06% to both nares daily. 13. Humulin insulin 70/30 20 units in the a.m. and 10 units in the p.m. 14. Plaquenil 400 mg p.o. daily. 15. Ferrous sulfate 325 mg p.o. daily. 16. Lomotil 1 tab p.o. daily p.r.n. 17. Vitamin B12 500 micrograms p.o. b.i.d. 18. Carvedilol 12.5 mg p.o. b.i.d. 19. Calcium carbonate 1000 mg p.o. b.i.d. 20. Caltrate 1 tab p.o. b.i.d. 21. Aspirin 81 mg p.o. daily. 22. Ascorbic acid 500 mg p.o. daily. 23. Albuterol inhaler in nebulizer p.r.n. ALLERGIES: CODEINE, LEVOFLOXACIN and SULFA ANTIBIOTICS. FAMILY HISTORY: Positive for mother dying in her 80s secondary to heart disease and father dying in his 70s secondary to heart disease. SOCIAL HISTORY: The patient lives with her son and his 2 children. She ambulates with a walker and a wheelchair. She quit smoking more than 40 years ago. There is no report of alcohol or illicit drug use. REVIEW OF SYSTEMS: A 14-point review of systems was completed with Ms. Carter and all those mentioned above were negative. PHYSICAL EXAMINATION GENERAL: Ms. Carter is sitting up in the bed. She is in no acute distress. VITAL SIGNS: Temperature 98.4, pulse rate 63, respiratory rate 20, O2 saturation 95% on room air, blood pressure 174/72. NEURO: She is alert. She is oriented x3. She moves all extremities equally. There is no facial asymmetry or focal weakness. Extraocular movements are intact. LUNGS: Have crackles in the bases bilaterally. There is no accessory muscle use and has good aeration. HEART: S1, S2. No murmur, rub or gallops appreciated. ABDOMEN: Soft, nontender with bowel sounds positive x4. EXTREMITIES: Positive for 1 to 2+ edema in the lower extremities. SKIN: Intact. DIAGNOSTIC STUDIES AND LABORATORY DATA: Sodium 136, potassium 4.9, chloride 108, serum bicarbonate 19, BUN 42, creatinine 1.96, glucose 228, lactic acid 0.6 , troponin 0.05, CRP 82.00, BNP 1062, INR 1.06, WBC 6.3, hemoglobin 9.3, hematocrit 28, platelet count 162. Chest x-ray is read as follows: Pulmonary interstitial edema with bibasilar atelectasis versus consolidation. ASSESSMENT: Ms. Carter is a 78-year-old female with a past medical history of congestive heart failure, chronic obstructive pulmonary disease, chronic anemia , transaortic valve replacement, rheumatoid arthritis on immunosuppressants and insulin-dependent diabetes, who presents to the hospital today with concern for shortness of breath, suspected to be due to an [id number] congestive heart failure exacerbation. Our plans are for inpatient admission with expected length of stay to be greater than 2 days for the followin. [id number] congestive heart failure exacerbation: The patient reports shortness of breath. She has lower extremity edema. She has dramatically elevated BNP. I suspect that she has a congestive heart failure exacerbation and plan to treat with Lasix 60 mg IV x1 now. She will have I's and O's and daily weights. If she has difficulty getting in and out of bed due to the need for diuresis, then a Huynh catheter will be placed. We will evaluate the patient in the a.m., determine if there is need for further Lasix dosing based on her output through the evening on critical exam. The patient's last echocardiogram has been in 2017 and I have ordered an echo if she is here on Wednesday. 2. Type 2 diabetes. Plan to continue her home insulin, check blood glucoses q.a.c. with Lispro sliding scale. 3. Chronic obstructive pulmonary disease. No evidence of chronic obstructive pulmonary disease exacerbation today. The patient has no wheezing. We will continue home medications. 4. Hypertension. Plan to hold amlodipine, torsemide, lisinopril in the setting of need for diuresis, but we will continue carvedilol. Her blood pressure is well controlled at this time. 5. Gastroesophageal reflux disease. Continue pantoprazole. 6. History of rheumatoid arthritis. We will hold Xeljanz while inpatient. 7. Hypothyroidism. Continue levothyroxine. 8. Anemia, chronic, stable. 9. Chronic kidney disease stage 3. The patient's creatinine is worse today, actually at 1.96. We will need to monitor closely given the need for diuresis. 10. Elevated troponin. Plan to trend. 11. Question pneumonia. The patient has an elevated CRP, but no leukocytosis, no fever, no sputum production, and her chest x-ray seems more consistent with congestive heart failure. I do not plan for antibiotics at this time, but this can be added if the patient does not respond well adequately to diuresis only. 12. Code status is full code. 13. DVT prophylaxis with heparin subcu. TIME SPENT: Approximately 60 minutes was spent on the admission of this patient , more than half of the time was spent with the patient at the bedside reviewing the events leading up to this hospitalization, performing physical examination, and reviewing the plan of care. TEENA LEAL NP [id number]/CPS #: [id number] CESAR
[2018-02-19 05:52] LABS: ABS Basophils 0 10^3/ul (0-0.2); ABS Eosinophils 0.1 10^3/ul (0-0.6); ABS Lymphocytes 0.5 10^3/ul (1.0-4.8); ABS Monocytes 0.4 10^3/ul (0-0.8); ABS Neutrophils 4.4 10^3/ul (1.5-7.7); ABS Nucleated RBC 0 10^3/ul; Eosinophil % 1.6 %; Hematocrit 24 % (35-47); Hemoglobin 8.3 g/dl (12.0-16.0); Lymphocyte % 8.4 %; Mean Corpuscular HGB Conc 34 g/dl (31-36); Mean Corpuscular Hemoglobin 31 pg (27-31); Mean Corpuscular Volume 92 fL (80-97); Mean Platelet Volume 8.9 fL (7.4-10.4); Nucleated Red Blood Cells % 0; Platelet Count 154 10^3/ul (150-450); Red Blood Count 2.66 10^6/ul (4.00-5.40); Red Cell Distribution Width 18 % (10.5-15); White Blood Count 5.3 10^3/ul (3.5-10.8)
[2018-02-19] MEDS: Heparin VIAL(*) 5000 UNITS/ML VIAL (FIVE THOUSAND) SUBCUT SCH ×3 (06:08→21:42)
[2018-02-19] MEDS: Levothyroxine TAB* 25 MCG TAB PO SCH (06:08)
[2018-02-19 06:14] LABS: Potassium 4.4 mmol/L (3.5-5.0)
[2018-02-19 06:20] LABS: BUN/Creatinine Ratio 22.8 (8-20); EGFR Non-African American 26.5 (>60)
[2018-02-19] MEDS: Omeprazole CAP (NF) 20 MG CAP.DR PO SCH (07:49)
[2018-02-19] MEDS: Albuterol 2.5 MG/3 ML NEB.SOL* (0.083%) INH PRN (07:59)
[2018-02-19] MEDS ORDERED: Insulin ISOPH/REG 70/30 (*) 1 UNITS UNIT SUBCUT SCH ×2 (09:00→18:00)
[2018-02-19] MEDS ORDERED: guaiFENesin ER TAB 600 MG PO SCH (09:00)
[2018-02-19] MEDS: Insulin LISPRO* 1 UNITS UNIT SUBCUT SCH ×3 (09:08→16:23)
[2018-02-19] MEDS: Ascorbic Acid TAB* 500 MG PO SCH (09:10)
[2018-02-19] MEDS: Ferrous Sulfate TAB* 325 MG PO SCH (09:10)
[2018-02-19] MEDS: Aspirin 81 mg CHEW TAB* 81 MG TAB.CHEW PO SCH (09:10)
[2018-02-19] MEDS: Carvedilol TAB* 6.25 MG PO SCH ×2 (09:10→21:41)
[2018-02-19] MEDS: Cyanocobalamin TAB* 500 MCG PO SCH ×2 (09:10→21:41)
[2018-02-19] MEDS: Atorvastatin* 20 MG TAB PO SCH (09:10)
[2018-02-19] MEDS: Hydroxychloroquine TAB* 200 MG PO SCH (09:10)
[2018-02-19] MEDS: Lisinopril TAB* 5 MG PO SCH (09:11)
[2018-02-19] MEDS: Albuterol HFA INHALER* 8 gm MDI INH PRN ×2 (11:35→19:38)
[2018-02-19] MEDS: Furosemide IV* 10 MG/ML VIAL (40 MG) IV SCH ×2 (13:56→21:42)
--- NOTE | 2018-02-19 14:37 | PN ---
Subjective Date of Service: 02/19/18 Interval History: Still SOB with reported orthopnea and edema.Mild improvement since admission last night Objective Active Medications: Acetaminophen (Tylenol Tab*) 650 mg PO Q6H PRN PRN Reason: PAIN Last Admin: 02/19/18 11:35 Dose: 650 mg Albuterol (Ventolin 2.5 Mg/3 Ml Neb.Rivka*) 2.5 mg INH QID PRN PRN Reason: SOB/WHEEZING Last Admin: 02/19/18 07:59 Dose: 2.5 mg Albuterol (Ventolin Hfa Inhaler*) 2 puff INH Q6H PRN PRN Reason: SHORTNESS OF BREATH Last Admin: 02/19/18 11:35 Dose: 2 puff Ascorbic Acid (Vitamin C Tab*) 500 mg PO DAILY [facility] Last Admin: 02/19/18 09:10 Dose: 500 mg Aspirin (Aspirin 81 Mg Chew Tab*) 81 mg PO DAILY [facility] Last Admin: 02/19/18 09:10 Dose: 81 mg Atorvastatin Calcium (Lipitor*) 20 mg PO DAILY [facility] Last Admin: 02/19/18 09:10 Dose: 20 mg Carvedilol (Coreg Tab*) 12.5 mg PO BID [facility] Last Admin: 02/19/18 09:10 Dose: 12.5 mg Cyanocobalamin (Vitamin B12 Tab*) 500 mcg PO BID [facility] Last Admin: 02/19/18 09:10 Dose: 500 mcg Dextrose (D50w Syringe 50 Ml*) 12.5 gm IV PUSH .FOR FS < 60 - SS PRN PRN Reason: FS < 60 Ferrous Sulfate (Ferrous Sulfate Tab*) 325 mg PO DAILY [facility] Last Admin: 02/19/18 09:10 Dose: 325 mg Furosemide (Lasix Iv*) 40 mg IV BID [facility] Last Admin: 02/19/18 13:56 Dose: 40 mg Guaifenesin (Mucinex*) 600 mg PO DAILY [facility] Last Admin: 02/19/18 09:10 Dose: 600 mg Heparin Sodium (Porcine) (Heparin Vial(*)) 5,000 units SUBCUT Q8HR [facility] Last Admin: 02/19/18 13:57 Dose: 5,000 units Hydroxychloroquine Sulfate (Plaquenil Tab*) 400 mg PO DAILY [facility] Last Admin: 02/19/18 09:10 Dose: 400 mg Ceftriaxone Sodium 1 gm/ (Sodium Chloride) 50 mls @ 200 mls/hr IVPB Q24H [facility] Azithromycin 500 mg/ Sodium (Chloride) 250 mls @ 250 mls/hr IVPB Q24H [facility] Insulin Human Isoph/Insulin Regular (Humulin 70/30 (*)) 10 units SUBCUT QPM [facility] Insulin Human Isoph/Insulin Regular (Humulin 70/30 (*)) 20 units SUBCUT QAM [facility] Last Admin: 02/19/18 09:09 Dose: 20 units Insulin Human Lispro (Humalog*) 0 units SUBCUT AC [facility]; Protocol Last Admin: 02/19/18 11:40 Dose: Not Given Levothyroxine Sodium (Synthroid Tab*) 25 mcg PO DAILY@0600 [facility] Last Admin: 02/19/18 06:08 Dose: 25 mcg Lisinopril (Prinivil Tab*) 2.5 mg PO DAILY [facility] Last Admin: 02/19/18 09:11 Dose: 2.5 mg Nitroglycerin (Nitroglycerin Tab 0.4 Mg*) 0.4 mg SL Q5M PRN PRN Reason: ANGINA Omeprazole (Prilosec Cap*) 20 mg PO DAILY@0730 [facility] Last Admin: 02/19/18 07:49 Dose: 20 mg Vital Signs - 8 hr 02/19/18 02/19/18 02/19/18 07:38 07:53 07:55 Temperature 97.9 F Pulse Rate 63 62 Respiratory 16 20 16 Rate Blood Pressure 142/52 (mmHg) O2 Sat by Pulse 99 100 Oximetry 02/19/18 02/19/18 11:30 11:39 Temperature 97.6 F Pulse Rate 81 Respiratory 16 Rate Blood Pressure 118/44 (mmHg) O2 Sat by Pulse 100 Oximetry Oxygen Devices in Use Now: None Eyes: No Scleral Icterus Ears/Nose/Mouth/Throat: NL Teeth, Lips, Gums Respiratory: - - Bilateral crackles at base Cardiovascular: NL Sounds; No Murmurs; No JVD Abdominal: NL Sounds; No Tenderness; No Distention Extremities: - - Edema present Neurological: Alert and Oriented x 3 Result Diagrams: 02/19/18 05:27 02/19/18 05:27 Assess/Plan/Problems-Billing Assessment: 78 y/o with acute on chronic chf exacerbation and poss pneumonia - Patient Problems (1) CHF exacerbation Current Visit: Yes Status: Acute Code(s): I50.9 - HEART FAILURE, UNSPECIFIED SNOMED Code(s): 30459724 Comment: Recd lasix 60 mg iv in ER Will keep on lasix 40 mg IV BID Strict I/O (2) Pneumonia Current Visit: Yes Status: Acute Code(s): J18.9 - PNEUMONIA, UNSPECIFIED ORGANISM SNOMED Code(s): 469016500 Comment: Not improving with just diuresis Will add empiric abx with ceftriaxone and azithromycin for CAP and will taper quickly if improved (3) CKD (chronic kidney disease) Current Visit: Yes Status: Acute Code(s): N18.9 - CHRONIC KIDNEY DISEASE, UNSPECIFIED SNOMED Code(s): 592349160 Comment: Will monitor renal fx closely with diuresis Needs diuretics currently (4) CKD (chronic kidney disease) Current Visit: Yes Status: Acute Code(s): N18.9 - CHRONIC KIDNEY DISEASE, UNSPECIFIED SNOMED Code(s): 028116710
[2018-02-19] MEDS: cefTRIAXone(*) 1 GM in NS 0.9% 50 ML* 50 ML IVPB SCH (19:31)
[2018-02-19] MEDS: Azithromycin IV(*) 500 MG in NS 0.9% 250 ML* 250 ML IVPB SCH (21:42)
[2018-02-19] MEDS: GuaiFENesin DM* 5 ML UDC PO PRN (22:41)
[2018-02-19] MEDS: Saline NASAL SPRAY 0.65%* BTL BOTH NARES PRN (22:43)
[2018-02-20] MEDS ORDERED: Glucagon* 1 MG VIAL IM ONE (02:59)
--- NOTE | 2018-02-20 03:12 | PN ---
Hospitalist Progress Note f/s is 44 on bid here for infection glucagon im times one along d5half normal 75 cc/hr f/s q1 hr until f/s >110 twice ---> will d/c both for now and see how she does
[2018-02-20] MEDS ORDERED: D5W 1/2 NS 1000 ML BAG* 1,000 ML IV SCH (04:00)
[2018-02-20] MEDS ORDERED: D10W 1000 ML BAG* 1,000 ML IV SCH (05:50)
[2018-02-20] MEDS: Levothyroxine TAB* 25 MCG TAB PO SCH (06:09)
[2018-02-20] MEDS: Heparin VIAL(*) 5000 UNITS/ML VIAL (FIVE THOUSAND) SUBCUT SCH ×3 (06:09→21:32)
[2018-02-20] MEDS: Insulin LISPRO* 1 UNITS UNIT SUBCUT SCH ×4 (08:23→21:42)
[2018-02-20] MEDS: Lisinopril TAB* 5 MG PO SCH (08:35)
[2018-02-20] MEDS: Atorvastatin* 20 MG TAB PO SCH (08:36)
[2018-02-20] MEDS: Omeprazole CAP (NF) 20 MG CAP.DR PO SCH (08:36)
[2018-02-20] MEDS: Aspirin 81 mg CHEW TAB* 81 MG TAB.CHEW PO SCH (08:36)
[2018-02-20] MEDS: Ascorbic Acid TAB* 500 MG PO SCH (08:36)
[2018-02-20] MEDS: Ferrous Sulfate TAB* 325 MG PO SCH (08:36)
[2018-02-20] MEDS: Carvedilol TAB* 6.25 MG PO SCH ×2 (08:37→21:32)
[2018-02-20] MEDS: Cyanocobalamin TAB* 500 MCG PO SCH ×2 (08:39→21:32)
[2018-02-20] MEDS: Furosemide IV* 10 MG/ML VIAL (40 MG) IV SCH (08:40)
[2018-02-20] MEDS: Hydroxychloroquine TAB* 200 MG PO SCH (08:40)
[2018-02-20 09:23] LABS: ABS Basophils 0 10^3/ul (0-0.2); ABS Eosinophils 0.1 10^3/ul (0-0.6); ABS Lymphocytes 0.4 10^3/ul (1.0-4.8); ABS Monocytes 0.4 10^3/ul (0-0.8); ABS Neutrophils 5.3 10^3/ul (1.5-7.7); ABS Nucleated RBC 0 10^3/ul; Eosinophil % 1.7 %; Hematocrit 25 % (35-47); Hemoglobin 8.4 g/dl (12.0-16.0); Lymphocyte % 7.1 %; Mean Corpuscular HGB Conc 34 g/dl (31-36); Mean Corpuscular Hemoglobin 31 pg (27-31); Mean Corpuscular Volume 92 fL (80-97); Mean Platelet Volume 8.7 fL (7.4-10.4); Nucleated Red Blood Cells % 0; Platelet Count 153 10^3/ul (150-450); Red Blood Count 2.68 10^6/ul (4.00-5.40); Red Cell Distribution Width 18 % (10.5-15); White Blood Count 6.3 10^3/ul (3.5-10.8)
[2018-02-20 09:37] LABS: BUN/Creatinine Ratio 25.3 (8-20); Calcium 6.8 mg/dL (8.6-10.3); Potassium 4.7 mmol/L (3.5-5.0)
--- NOTE | 2018-02-20 17:04 | PN ---
Subjective Date of Service: 02/20/18 Interval History: Improved breathing.More alert awake. Was transferred to ICU last night due to hypoglycemia and needing close glucose monitoring and was on D10 drip.Now stopped and placed on a sliding scale.Also recorded rectal temp was 95 last night but ok in the ICU thus far and off warming blanket.On antibiotics Objective Active Medications: Acetaminophen (Tylenol Tab*) 650 mg PO Q6H PRN PRN Reason: PAIN Last Admin: 02/19/18 11:35 Dose: 650 mg Albuterol (Ventolin 2.5 Mg/3 Ml Neb.Rivka*) 2.5 mg INH QID PRN PRN Reason: SOB/WHEEZING Last Admin: 02/19/18 07:59 Dose: 2.5 mg Albuterol (Ventolin Hfa Inhaler*) 2 puff INH Q6H PRN PRN Reason: SHORTNESS OF BREATH Last Admin: 02/19/18 19:38 Dose: 2 puff Ascorbic Acid (Vitamin C Tab*) 500 mg PO DAILY [facility] Last Admin: 02/20/18 08:36 Dose: 500 mg Aspirin (Aspirin 81 Mg Chew Tab*) 81 mg PO DAILY [facility] Last Admin: 02/20/18 08:36 Dose: 81 mg Atorvastatin Calcium (Lipitor*) 20 mg PO DAILY [facility] Last Admin: 02/20/18 08:36 Dose: 20 mg Carvedilol (Coreg Tab*) 12.5 mg PO BID [facility] Last Admin: 02/20/18 08:37 Dose: 12.5 mg Cyanocobalamin (Vitamin B12 Tab*) 500 mcg PO BID [facility] Last Admin: 02/20/18 08:39 Dose: 500 mcg Dextrose (D50w Syringe 50 Ml*) 12.5 gm IV PUSH .FOR FS < 60 - SS PRN PRN Reason: FS < 60 Ferrous Sulfate (Ferrous Sulfate Tab*) 325 mg PO DAILY [facility] Last Admin: 02/20/18 08:36 Dose: 325 mg Furosemide (Lasix Tab*) 40 mg PO BID [facility] Guaifenesin/Dextromethorphan (Robitussin Dm*) 10 ml PO Q4H PRN PRN Reason: COUGH Last Admin: 02/19/18 22:41 Dose: 10 ml Heparin Sodium (Porcine) (Heparin Vial(*)) 5,000 units SUBCUT Q8HR [facility] Last Admin: 02/20/18 14:51 Dose: 5,000 units Hydroxychloroquine Sulfate (Plaquenil Tab*) 400 mg PO DAILY [facility] Last Admin: 02/20/18 08:40 Dose: 400 mg Ceftriaxone Sodium 1 gm/ (Sodium Chloride) 50 mls @ 200 mls/hr IVPB Q24H [facility] Last Admin: 02/19/18 19:31 Dose: 200 mls/hr Azithromycin 500 mg/ Sodium (Chloride) 250 mls @ 250 mls/hr IVPB Q24H [facility] Last Admin: 02/19/18 21:42 Dose: 250 mls/hr Insulin Human Lispro (Humalog*) 0 units SUBCUT ACHS [facility]; Protocol Last Admin: 02/20/18 16:47 Dose: 2 units Levothyroxine Sodium (Synthroid Tab*) 25 mcg PO DAILY@0600 [facility] Last Admin: 02/20/18 06:09 Dose: 25 mcg Lisinopril (Prinivil Tab*) 2.5 mg PO DAILY [facility] Last Admin: 02/20/18 08:35 Dose: 2.5 mg Nitroglycerin (Nitroglycerin Tab 0.4 Mg*) 0.4 mg SL Q5M PRN PRN Reason: ANGINA Omeprazole (Prilosec Cap*) 20 mg PO DAILY@0730 [facility] Last Admin: 02/20/18 08:36 Dose: 20 mg Sodium Chloride (Sodium Chloride 0.65% Nasal [place]*) 1 spray BOTH NARES Q4H PRN PRN Reason: CONGESTION Last Admin: 02/19/18 22:43 Dose: 1 spray Vital Signs - 8 hr 02/20/18 02/20/18 02/20/18 09:00 09:01 10:00 Temperature Pulse Rate 60 60 Respiratory 13 12 16 Rate Blood Pressure 145/48 130/47 (mmHg) O2 Sat by Pulse 97 98 Oximetry 02/20/18 02/20/18 02/20/18 11:00 11:19 12:00 Temperature 97.7 F Pulse Rate 60 64 60 Respiratory 12 13 13 Rate Blood Pressure 137/56 139/50 (mmHg) O2 Sat by Pulse 97 99 99 Oximetry 02/20/18 02/20/18 02/20/18 12:01 13:00 13:01 Temperature Pulse Rate 62 60 60 Respiratory 13 15 15 Rate Blood Pressure 147/63 (mmHg) O2 Sat by Pulse 99 98 98 Oximetry 02/20/18 02/20/18 02/20/18 14:00 14:01 15:00 Temperature Pulse Rate 60 60 60 Respiratory 18 17 15 Rate Blood Pressure 129/51 137/37 (mmHg) O2 Sat by Pulse 98 98 99 Oximetry 02/20/18 02/20/18 02/20/18 15:01 16:00 16:01 Temperature 98.2 F Pulse Rate 60 60 60 Respiratory 15 16 16 Rate Blood Pressure 155/61 (mmHg) O2 Sat by Pulse 99 100 100 Oximetry 02/20/18 16:49 Temperature Pulse Rate Respiratory 22 Rate Blood Pressure (mmHg) O2 Sat by Pulse Oximetry Oxygen Devices in Use Now: None Eyes: No Scleral Icterus Ears/Nose/Mouth/Throat: NL Teeth, Lips, Gums Neck: NL Appearance and Movements; NL JVP Respiratory: Symmetrical Chest Expansion and Respiratory Effort, - - basal crackles Cardiovascular: NL Sounds; No Murmurs; No JVD Abdominal: NL Sounds; No Tenderness; No Distention Extremities: - - 1+ Edema bilaterally Neurological: Alert and Oriented x 3 Result Diagrams: 02/20/18 09:13 02/20/18 09:13 Microbiology and Other Data: Microbiology 02/20/18 05:45 Nasal Screen MRSA (PCR) - Final Nasal Mrsa Not Detected 02/18/18 18:03 Aerobic Blood Culture - Preliminary Blood Venous No Growth Day 1 Anaerobic Blood Culture - Preliminary No Growth Day 1 02/18/18 18:10 Aerobic Blood Culture - Preliminary Blood Venous No Growth Day 1 Anaerobic Blood Culture - Preliminary No Growth Day 1 Assess/Plan/Problems-Billing Assessment: 78 y/o with acute on chronic chf exacerbation and poss pneumonia - Patient Problems (1) CHF exacerbation Current Visit: Yes Status: Acute Code(s): I50.9 - HEART FAILURE, UNSPECIFIED SNOMED Code(s): 49110015 Comment: Recd lasix 60 mg iv in ER Then on lasix 40 mg IV BID Switched to lasix 40 mg po bid now Strict I/O improved sob Echo ordered and pending Follows with Dr Lowry as an outpatient (2) Pneumonia Current Visit: Yes Status: Acute Code(s): J18.9 - PNEUMONIA, UNSPECIFIED ORGANISM SNOMED Code(s): 014271245 Comment: Was not improving with just diuresis yesterday Added empiric abx with ceftriaxone and azithromycin for CAP Also had rectal temp of 95? once Continue antibiotics for now F/u cultures (3) CKD (chronic kidney disease) Current Visit: Yes Status: Acute Code(s): N18.9 - CHRONIC KIDNEY DISEASE, UNSPECIFIED SNOMED Code(s): 895366017 Comment: Will monitor renal fx closely with diuresis Needs diuretics currently (4) Diabetes Current Visit: Yes Status: Acute Code(s): E11.9 - TYPE 2 DIABETES MELLITUS WITHOUT COMPLICATIONS SNOMED Code(s): 20549084 Comment: Off D10 drip Transitioned to Sliding scale On 70/30 at home Needs adjustment to regimen tomorrow when stable Status and Disposition: Can transfer to floor from ICU.Orders placed
[2018-02-20] MEDS: cefTRIAXone(*) 1 GM in NS 0.9% 50 ML* 50 ML IVPB SCH (19:13)
[2018-02-20] MEDS: Azithromycin IV(*) 500 MG in NS 0.9% 250 ML* 250 ML IVPB SCH (20:15)
[2018-02-20] MEDS: Furosemide TAB* 40 MG PO SCH (21:32)
[2018-02-21 05:27] LABS: ABS Basophils 0 10^3/ul (0-0.2); ABS Eosinophils 0.2 10^3/ul (0-0.6); ABS Lymphocytes 0.6 10^3/ul (1.0-4.8); ABS Monocytes 0.5 10^3/ul (0-0.8); ABS Neutrophils 4.4 10^3/ul (1.5-7.7); ABS Nucleated RBC 0 10^3/ul; Eosinophil % 2.9 %; Hematocrit 25 % (35-47); Hemoglobin 8.5 g/dl (12.0-16.0); Lymphocyte % 9.9 %; Mean Corpuscular HGB Conc 34 g/dl (31-36); Mean Corpuscular Hemoglobin 31 pg (27-31); Mean Corpuscular Volume 92 fL (80-97); Mean Platelet Volume 8.7 fL (7.4-10.4); Nucleated Red Blood Cells % 0; Platelet Count 151 10^3/ul (150-450); Red Blood Count 2.74 10^6/ul (4.00-5.40); Red Cell Distribution Width 18 % (10.5-15); White Blood Count 5.6 10^3/ul (3.5-10.8)
[2018-02-21 05:44] LABS: BUN/Creatinine Ratio 23.6 (8-20); Calcium 6.7 mg/dL (8.6-10.3); Potassium 4.4 mmol/L (3.5-5.0)
[2018-02-21] MEDS: Heparin VIAL(*) 5000 UNITS/ML VIAL (FIVE THOUSAND) SUBCUT SCH ×3 (06:21→21:32)
[2018-02-21] MEDS: Levothyroxine TAB* 25 MCG TAB PO SCH (06:21)
--- NOTE | 2018-02-21 08:35 | PN ---
Subjective Date of Service: 02/21/18 Objective Active Medications: Acetaminophen (Tylenol Tab*) 650 mg PO Q6H PRN PRN Reason: PAIN Last Admin: 02/19/18 11:35 Dose: 650 mg Albuterol (Ventolin 2.5 Mg/3 Ml Neb.Rivka*) 2.5 mg INH QID PRN PRN Reason: SOB/WHEEZING Last Admin: 02/19/18 07:59 Dose: 2.5 mg Albuterol (Ventolin Hfa Inhaler*) 2 puff INH Q6H PRN PRN Reason: SHORTNESS OF BREATH Last Admin: 02/19/18 19:38 Dose: 2 puff Ascorbic Acid (Vitamin C Tab*) 500 mg PO DAILY [facility] Last Admin: 02/20/18 08:36 Dose: 500 mg Aspirin (Aspirin 81 Mg Chew Tab*) 81 mg PO DAILY [facility] Last Admin: 02/20/18 08:36 Dose: 81 mg Atorvastatin Calcium (Lipitor*) 20 mg PO DAILY [facility] Last Admin: 02/20/18 08:36 Dose: 20 mg Carvedilol (Coreg Tab*) 12.5 mg PO BID [facility] Last Admin: 02/20/18 21:32 Dose: 12.5 mg Cyanocobalamin (Vitamin B12 Tab*) 500 mcg PO BID [facility] Last Admin: 02/20/18 21:32 Dose: 500 mcg Dextrose (D50w Syringe 50 Ml*) 12.5 gm IV PUSH .FOR FS < 60 - SS PRN PRN Reason: FS < 60 Ferrous Sulfate (Ferrous Sulfate Tab*) 325 mg PO DAILY [facility] Last Admin: 02/20/18 08:36 Dose: 325 mg Furosemide (Lasix Tab*) 40 mg PO BID [facility] Last Admin: 02/20/18 21:32 Dose: 40 mg Guaifenesin/Dextromethorphan (Robitussin Dm*) 10 ml PO Q4H PRN PRN Reason: COUGH Last Admin: 02/19/18 22:41 Dose: 10 ml Heparin Sodium (Porcine) (Heparin Vial(*)) 5,000 units SUBCUT Q8HR [facility] Last Admin: 02/21/18 06:21 Dose: 5,000 units Hydroxychloroquine Sulfate (Plaquenil Tab*) 400 mg PO DAILY [facility] Last Admin: 02/20/18 08:40 Dose: 400 mg Ceftriaxone Sodium 1 gm/ (Sodium Chloride) 50 mls @ 200 mls/hr IVPB Q24H [facility] Last Admin: 02/20/18 19:13 Dose: 200 mls/hr Azithromycin 500 mg/ Sodium (Chloride) 250 mls @ 250 mls/hr IVPB Q24H [facility] Last Admin: 02/20/18 20:15 Dose: 250 mls/hr Insulin Human Lispro (Humalog*) 0 units SUBCUT ACHS [facility]; Protocol Last Admin: 02/20/18 21:42 Dose: 2 units Levothyroxine Sodium (Synthroid Tab*) 25 mcg PO DAILY@0600 [facility] Last Admin: 02/21/18 06:21 Dose: 25 mcg Lisinopril (Prinivil Tab*) 2.5 mg PO DAILY [facility] Last Admin: 02/20/18 08:35 Dose: 2.5 mg Nitroglycerin (Nitroglycerin Tab 0.4 Mg*) 0.4 mg SL Q5M PRN PRN Reason: ANGINA Omeprazole (Prilosec Cap*) 20 mg PO DAILY@0730 [facility] Last Admin: 02/20/18 08:36 Dose: 20 mg Sodium Chloride (Sodium Chloride 0.65% Nasal [place]*) 1 spray BOTH NARES Q4H PRN PRN Reason: CONGESTION Last Admin: 02/19/18 22:43 Dose: 1 spray Vital Signs - 8 hr 02/21/18 02/21/18 02/21/18 01:00 02:00 03:00 Temperature Pulse Rate 60 60 Respiratory 13 14 16 Rate Blood Pressure (mmHg) O2 Sat by Pulse 94 98 Oximetry 02/21/18 02/21/18 02/21/18 04:00 04:27 05:00 Temperature Pulse Rate 60 Respiratory 16 16 16 Rate Blood Pressure (mmHg) O2 Sat by Pulse 99 Oximetry 02/21/18 02/21/18 02/21/18 05:56 06:00 06:40 Temperature Pulse Rate 61 64 Respiratory 18 15 13 Rate Blood Pressure 154/60 (mmHg) O2 Sat by Pulse 96 98 Oximetry 02/21/18 02/21/18 02/21/18 07:00 07:56 08:00 Temperature 97.6 F Pulse Rate 60 60 Respiratory 15 18 18 Rate Blood Pressure 158/55 (mmHg) O2 Sat by Pulse 98 95 Oximetry Oxygen Devices in Use Now: None Result Diagrams: 02/21/18 05:19 02/21/18 05:19 Microbiology and Other Data: Microbiology 02/20/18 05:45 Nasal Screen MRSA (PCR) - Final Nasal Mrsa Not Detected 02/18/18 18:03 Aerobic Blood Culture - Preliminary Blood Venous No Growth Day 1 Anaerobic Blood Culture - Preliminary No Growth Day 1 02/18/18 18:10 Aerobic Blood Culture - Preliminary Blood Venous No Growth Day 1 Anaerobic Blood Culture - Preliminary No Growth Day 1 Assess/Plan/Problems-Billing Assessment: 78 y/o with history of TAVR, CKD, hypergammaglobulinemia, PH, TR and recent admission for COPD exacerbation/pneumonia admitted on 02/18 with shortness of breath and found to be volume overloaded - Patient Problems (1) CHF exacerbation Current Visit: Yes Status: Acute Code(s): I50.9 - HEART FAILURE, UNSPECIFIED SNOMED Code(s): 51808350 Comment: Valvular or right-sided heart failure? Vs. Diastolic heart failure ? TTE pending Responding well to lasix 40mg PO BID (2) CKD (chronic kidney disease) Current Visit: Yes Status: Acute Code(s): N18.9 - CHRONIC KIDNEY DISEASE, UNSPECIFIED SNOMED Code(s): 221874070 Comment: at baseline (3) Hypoglycemia Current Visit: No Status: Acute Onset Date: 06/27/14 Code(s): E16.2 - HYPOGLYCEMIA, UNSPECIFIED SNOMED Code(s): 934369507 Comment: I note that she had been on 70/30 20U in the morning and 10U in the evening, but she says at home she take 5U in the morning (only if sugar is >150 ) and "maybe 2U" in the evening but only if her sugar is >250. Also concerning for underlying infection--check UA (4) Diabetes Current Visit: Yes Status: Acute Code(s): E11.9 - TYPE 2 DIABETES MELLITUS WITHOUT COMPLICATIONS SNOMED Code(s): 19675150 Status and Disposition: Can transfer to floor from ICU.Orders placed
[2018-02-21] MEDS ORDERED: Bisacodyl SUPP* 10 MG SUPP PR PRN (08:46)
[2018-02-21] MEDS: Polyethylene Glycol 3350* 17 GM PACKET PO PRN (09:06)
[2018-02-21] MEDS: Lisinopril TAB* 5 MG PO SCH (09:07)
[2018-02-21] MEDS: Cyanocobalamin TAB* 500 MCG PO SCH ×2 (09:08→21:32)
[2018-02-21] MEDS: Atorvastatin* 20 MG TAB PO SCH (09:08)
[2018-02-21] MEDS: Carvedilol TAB* 6.25 MG PO SCH ×2 (09:09→21:33)
[2018-02-21] MEDS: Furosemide TAB* 40 MG PO SCH ×2 (09:09→21:32)
[2018-02-21] MEDS: Aspirin 81 mg CHEW TAB* 81 MG TAB.CHEW PO SCH (09:09)
[2018-02-21] MEDS: Ascorbic Acid TAB* 500 MG PO SCH (09:10)
[2018-02-21] MEDS: Omeprazole CAP (NF) 20 MG CAP.DR PO SCH (09:10)
[2018-02-21] MEDS: Ferrous Sulfate TAB* 325 MG PO SCH (09:10)
[2018-02-21] MEDS: Insulin LISPRO* 1 UNITS UNIT SUBCUT SCH ×4 (09:11→21:35)
[2018-02-21] MEDS: Hydroxychloroquine TAB* 200 MG PO SCH (09:13)
[2018-02-21 10:09] LABS: Urine Appearance Clear; Urine Bacteria Absent (Absent); Urine Bilirubin Negative (Negative); Urine Blood 1+ (Negative); Urine Color Straw; Urine Glucose Negative (Negative); Urine Ketones Negative (Negative); Urine Nitrite Negative (Negative); Urine Protein 1+(30 mg/dL) (Negative); Urine Red Blood Cell 2+(6-10/hpf) (Absent); Urine Specific Gravity 1.008 (1.010-1.030); Urine Urobilinogen Negative (Negative); Urine White Blood Cell Trace(0-5/hpf) (Absent)
--- NOTE | 2018-02-21 13:49 | ECHO ---
Patient: LEATHA AMAYA [facility] Rec#: [id number] : 1940 Date: 02/21/2018 Age: 78y Height: 165.1 cm / 65.0 in Weight: 65.77 kg / 145.0 lbs Sex: F BSA: 1.73 Room#: ICU 10 Admit Date#: 02/18/2018 Type: Inpatient Referring: Teena Leal NP Reading: Andrew Lowry MD Weather Forcaster: Iman Rodriguez RDCS CC: Vanesa Alexandra NP Transthoracic Echocardiogram Indication: CHF BP: 124/49 HR: 90 Rhythm: Paced Findings History: S/P TAVR,s/p pacer insert,anemia,COPD,CAD,HTN,HLD,hypothyroid. Technical Comments: The study quality is good. Completed at 0851. Left Ventricle: The left ventricular chamber size is normal. There is global hypokinesis of the left ventricle with minor regional variation. There is moderate to severely decreased left ventricular systolic function. The estimated ejection fraction is 30-35%. Abnormal left ventricular diastolic function is observed. Left Atrium: The left atrium is moderately dilated. Right Ventricle: The right ventricular cavity size is normal. The right ventricular global systolic function is normal. A pacemaker wire is visualized in the right ventricle. Right Atrium: The right atrial cavity size is normal. A pacemaker wire is visualized in the right atrium. Aortic Valve: There is a trace of aortic regurgitation. There is no evidence of aortic stenosis. A bio-prosthetic aortic valve is present. The bio-prosthetic aortic valve appears to be functioning normally. Mitral Valve: There is mitral annular calcification. There is mild to moderate mitral regurgitation. Tricuspid Valve: The tricuspid valve leaflets are normal. There is mild to moderate tricuspid regurgitation. There is evidence of severe pulmonary hypertension. Pulmonic Valve: The pulmonic valve appears normal. There is trace to mild pulmonic regurgitation. There is no pulmonic stenosis. Pericardium: There is no significant pericardial effusion. A trivial pericardial effusion is visualized. A left pleural effusion is present. Aorta: There is no dilatation of the ascending aorta. There is no dilatation of the aortic arch. There is no dilation of the aortic root. Pulmonary Artery: The main pulmonary artery is not well visualized. Venous: The inferior vena cava is dilated. There is less than 50% respiratory change in the inferior vena cava dimension. Conclusions There is moderate to severely decreased left ventricular systolic function. The estimated ejection fraction is 30-35%. There is global hypokinesis of the left ventricle with minor regional variation. The left ventricular chamber size is normal. Abnormal left ventricular diastolic function is observed. The left atrium is moderately dilated. The bio-prosthetic aortic valve appears to be functioning normally. There is mild to moderate mitral regurgitation. There is mild to moderate tricuspid regurgitation. There is evidence of severe pulmonary hypertension. Since the prior echocardiogram completed 11/10/16, pertinent changes are prior left ventricular function reported low normal and prior mild to moderate pulmonary hypertension reported. Measurements Name Value Normal Range RVIDd (AP) 2D 3.04 cm (0.9 - 2.6) RVDdMajor (2D) 4.2 cm (2.2 - 4.4) RAd ISD 4CH 4.7 cm (3.4 - 4.9) RA (A4C)W 4.1 cm (2.9 - 4.6) IVSd (2D) 1.18 cm (0.6 - 1) LVPWd (2D) 0.97 cm (0.6 - 1) LVIDd (2D) 4.95 cm (3.6 - 5.4) LVIDs (2D) 4.54 cm - LV FS (2D) 8.43 % (25 - 45) EF Teichholz (2D) 18.59 % - Aortic Annulus 2.3 cm (1.4 - 2.6) Ao root diameter (2D) 2.32 cm (2.1 - 3.5) Ascending Ao 2.74 cm (2.1 - 3.4) Aortic arch 2.8 cm (1.8 - 3.4) Descending Ao 0.4 cm - LA dimension (AP) 2D 4.2 cm (2.3 - 3.8) LAd ISD 4CH 5.2 cm (2.9 - 5.3) LA ISD 4CH W 4.3 cm (2.5 - 4.5) Name Value Normal Range LA ESV SP 4CH (A/L) 68.16 ml - LA ESV SP 2CH (A/L) 96.83 ml - LA ESV BP (A/L) 85.96 ml - LA ESV BP (A/L) index 50 ml/m2 - LA ESV SP 4CH (MOD) 63.38 ml - LA ESV SP 2CH (MOD) 90.91 ml - Name Value Normal Range MV E-wave Vmax 0.98 m/sec - MV deceleration time 162.05 msec - MV A-wave Vmax 1.37 m/sec - MV E:A ratio 0.71 ratio - LV septal e' Vmax 0.04 m/sec - LV lateral e' Vmax 0.06 m/sec - LV E:e' septal ratio 25 ratio - LV E:e' lateral ratio 16.7 ratio - Name Value Normal Range AV Vmax 1.85 m/sec - AV VTI 48.78 cm - AV peak gradient 13.75 mmHg - AV mean gradient 6.1 mmHg - LVOT diameter 2.2 cm - LVOT Vmax 0.87 m/sec - LVOT VTI 23.39 cm - LVOT peak gradient 3.06 mmHg - LVOT mean gradient 1.36 mmHg - ITA (continuity Vmax) 1.8 cm2 - ITA (continuity VTI) 1.82 cm2 - AR PHT 595.03 msec - AR peak gradient 43.5 mmHg - Name Value Normal Range MR Vmax 5.43 m/sec - MR VTI 248.26 cm - Name Value Normal Range TR Vmax 3.67 m/sec - TR peak gradient 54.03 mmHg - RAP 15 mmHg - RVSP 76 mmHg - IVC diameter 2.5 cm - Name Value Normal Range PV Vmax 0.63 m/sec - PV peak gradient 1.61 mmHg -
[2018-02-21] MEDS: cefTRIAXone(*) 1 GM in NS 0.9% 50 ML* 50 ML IVPB SCH (20:35)
[2018-02-21] MEDS: Azithromycin IV(*) 500 MG in NS 0.9% 250 ML* 250 ML IVPB SCH (21:17)
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
[2018-02-22] MEDS ORDERED: Furosemide IV* 10 MG/ML 2 ML VIAL (20 MG) IV ONE (01:13)
[2018-02-22 05:31] LABS: Hematocrit 24 % (35-47); Hemoglobin 8.1 g/dl (12.0-16.0); Mean Corpuscular HGB Conc 34 g/dl (31-36); Mean Corpuscular Hemoglobin 31 pg (27-31); Mean Corpuscular Volume 91 fL (80-97); Mean Platelet Volume 8.9 fL (7.4-10.4); Platelet Count 161 10^3/ul (150-450); Red Blood Count 2.59 10^6/ul (4.00-5.40); Red Cell Distribution Width 18 % (10.5-15); White Blood Count 5.7 10^3/ul (3.5-10.8)
[2018-02-22 05:37] LABS: ABS Basophils 0 10^3/ul (0-0.2); ABS Eosinophils 0.1 10^3/ul (0-0.6); ABS Lymphocytes 0.7 10^3/ul (1.0-4.8); ABS Monocytes 0.5 10^3/ul (0-0.8); ABS Neutrophils 4.5 10^3/ul (1.5-7.7); ABS Nucleated RBC 0 10^3/ul; Eosinophil % 1.8 %; Lymphocyte % 12.4 %; Nucleated Red Blood Cells % 0
[2018-02-22 05:40] LABS: INR 1.14 (0.77-1.02)
[2018-02-22 05:49] LABS: BUN/Creatinine Ratio 24.4 (8-20); Calcium 6.7 mg/dL (8.6-10.3); Magnesium 1.8 mg/dL (1.9-2.7); Potassium 4.3 mmol/L (3.5-5.0)
[2018-02-22] MEDS: Heparin VIAL(*) 5000 UNITS/ML VIAL (FIVE THOUSAND) SUBCUT SCH ×3 (06:07→21:18)
[2018-02-22] MEDS: Levothyroxine TAB* 25 MCG TAB PO SCH (06:07)
[2018-02-22] MEDS: Lisinopril TAB* 5 MG PO SCH (09:33)
[2018-02-22] MEDS: Omeprazole CAP (NF) 20 MG CAP.DR PO SCH (09:33)
[2018-02-22] MEDS: Aspirin 81 mg CHEW TAB* 81 MG TAB.CHEW PO SCH (09:33)
[2018-02-22] MEDS: Ascorbic Acid TAB* 500 MG PO SCH (09:33)
[2018-02-22] MEDS: Carvedilol TAB* 6.25 MG PO SCH ×2 (09:34→21:18)
[2018-02-22] MEDS: Furosemide TAB* 40 MG PO SCH ×2 (09:34→21:18)
[2018-02-22] MEDS: Insulin LISPRO* 1 UNITS UNIT SUBCUT SCH ×4 (09:34→21:18)
[2018-02-22] MEDS: Atorvastatin* 20 MG TAB PO SCH (09:34)
[2018-02-22] MEDS: Ferrous Sulfate TAB* 325 MG PO SCH (09:34)
[2018-02-22] MEDS: Cyanocobalamin TAB* 500 MCG PO SCH ×2 (09:34→21:18)
[2018-02-22] MEDS: Hydroxychloroquine TAB* 200 MG PO SCH (09:42)
--- NOTE | 2018-02-22 13:43 | PN ---
Subjective Date of Service: 02/22/18 Interval History: She is constipated and very upset that she feels she hasn't had a proper bowel movement. No abdominal pain, no nausea or vomiting. No fevers. Peeing well. Looking forward to company coming to visit her this afternoon. Objective Active Medications: Acetaminophen (Tylenol Tab*) 650 mg PO Q6H PRN PRN Reason: PAIN Last Admin: 02/19/18 11:35 Dose: 650 mg Albuterol (Ventolin 2.5 Mg/3 Ml Neb.Rivka*) 2.5 mg INH QID PRN PRN Reason: SOB/WHEEZING Last Admin: 02/19/18 07:59 Dose: 2.5 mg Albuterol (Ventolin Hfa Inhaler*) 2 puff INH Q6H PRN PRN Reason: SHORTNESS OF BREATH Last Admin: 02/19/18 19:38 Dose: 2 puff Ascorbic Acid (Vitamin C Tab*) 500 mg PO DAILY [facility] Last Admin: 02/22/18 09:33 Dose: 500 mg Aspirin (Aspirin 81 Mg Chew Tab*) 81 mg PO DAILY [facility] Last Admin: 02/22/18 09:33 Dose: 81 mg Atorvastatin Calcium (Lipitor*) 20 mg PO DAILY [facility] Last Admin: 02/22/18 09:34 Dose: 20 mg Azithromycin (Zithromax Tab*) 500 mg PO 2100 [facility] Bisacodyl (Dulcolax Supp*) 10 mg TN DAILY PRN PRN Reason: CONSTIPATION Carvedilol (Coreg Tab*) 12.5 mg PO BID [facility] Last Admin: 02/22/18 09:34 Dose: 12.5 mg Cyanocobalamin (Vitamin B12 Tab*) 500 mcg PO BID [facility] Last Admin: 02/22/18 09:34 Dose: 500 mcg Dextrose (D50w Syringe 50 Ml*) 12.5 gm IV PUSH .FOR FS < 60 - SS PRN PRN Reason: FS < 60 Ferrous Sulfate (Ferrous Sulfate Tab*) 325 mg PO DAILY [facility] Last Admin: 02/22/18 09:34 Dose: 325 mg Furosemide (Lasix Tab*) 40 mg PO BID [facility] Last Admin: 02/22/18 09:34 Dose: 40 mg Guaifenesin/Dextromethorphan (Robitussin Dm*) 10 ml PO Q4H PRN PRN Reason: COUGH Last Admin: 02/19/18 22:41 Dose: 10 ml Heparin Sodium (Porcine) (Heparin Vial(*)) 5,000 units SUBCUT Q8HR [facility] Last Admin: 02/22/18 06:07 Dose: 5,000 units Hydroxychloroquine Sulfate (Plaquenil Tab*) 400 mg PO DAILY [facility] Last Admin: 02/22/18 09:42 Dose: 400 mg Ceftriaxone Sodium 1 gm/ (Sodium Chloride) 50 mls @ 200 mls/hr IVPB Q24H [facility] Last Admin: 02/21/18 20:35 Dose: 200 mls/hr Insulin Human Lispro (Humalog*) 0 units SUBCUT ACHS [facility]; Protocol Last Admin: 02/22/18 12:28 Dose: 3 units Levothyroxine Sodium (Synthroid Tab*) 25 mcg PO DAILY@0600 [facility] Last Admin: 02/22/18 06:07 Dose: 25 mcg Lisinopril (Prinivil Tab*) 2.5 mg PO DAILY [facility] Last Admin: 02/22/18 09:33 Dose: 2.5 mg Nitroglycerin (Nitroglycerin Tab 0.4 Mg*) 0.4 mg SL Q5M PRN PRN Reason: ANGINA Omeprazole (Prilosec Cap*) 20 mg PO DAILY@0730 [facility] Last Admin: 02/22/18 09:33 Dose: 20 mg Polyethylene Glycol/Electrolytes (Miralax*) 17 gm PO DAILY PRN PRN Reason: CONSTIPATION Last Admin: 02/21/18 09:06 Dose: 17 gm Sodium Chloride (Sodium Chloride 0.65% Nasal [place]*) 1 spray BOTH NARES Q4H PRN PRN Reason: CONGESTION Last Admin: 02/19/18 22:43 Dose: 1 spray Vital Signs - 8 hr 02/22/18 02/22/18 02/22/18 07:54 08:00 11:10 Temperature 97.7 F 98.4 F Pulse Rate 60 64 Respiratory 17 16 18 Rate Blood Pressure 139/43 110/32 (mmHg) O2 Sat by Pulse 99 100 Oximetry Oxygen Devices in Use Now: None Appearance: alert, pale, sitting up in chair, no distress Respiratory: - - crackles b/l bases Cardiovascular: - - marked kyphosis. RRR. JVP 12cm Lymphatic: No Cervical Adenopathy Extremities: - - 2+ edema to knees Skin: No Rash or Ulcers Neurological: Alert and Oriented x 3 Result Diagrams: 02/22/18 05:16 02/22/18 05:16 Microbiology and Other Data: Microbiology 02/20/18 05:45 Nasal Screen MRSA (PCR) - Final Nasal Mrsa Not Detected 02/18/18 18:03 Aerobic Blood Culture - Preliminary Blood Venous No Growth Day 1 Anaerobic Blood Culture - Preliminary No Growth Day 1 02/18/18 18:10 Aerobic Blood Culture - Preliminary Blood Venous No Growth Day 1 Anaerobic Blood Culture - Preliminary No Growth Day 1 Assess/Plan/Problems-Billing Assessment: 78 y/o with history of TAVR, CKD, hypergammaglobulinemia, PH, TR and recent admission for COPD exacerbation/pneumonia admitted on 02/18 with shortness of breath and found to be volume overloaded - Patient Problems (1) Acute systolic (congestive) heart failure Current Visit: Yes Status: Acute Code(s): I50.21 - ACUTE SYSTOLIC ( CONGESTIVE) HEART FAILURE SNOMED Code(s): 921925981 Comment: etiology unclear--will need an ischemic work up eventually; Lowry following diuresing well continue BB, WAYLON inhibitor has a pacer and may need an AICD for primary prevention but will need repeat TTE (2) Hypoglycemia Current Visit: No Status: Acute Onset Date: 06/27/14 Code(s): E16.2 - HYPOGLYCEMIA, UNSPECIFIED SNOMED Code(s): 751736652 Comment: Resolved and now hyperglycemic off insulin. At admission she was placed on 70/30 20U in the morning and 10U in the evening, but she says at home she takes 5U in the morning (only if sugar is >150) and "maybe 2U" in the evening but only if her sugar is >250 so I suspect the hypoglycemia was iatrogenic. (3) Shortness of breath Current Visit: Yes Status: Acute Code(s): R06.02 - SHORTNESS OF BREATH SNOMED Code(s): 224892752 Comment: improving with diuresis abx were started empirically but clinically she does not have a pneumonia so I will discontinue (4) Diabetes Current Visit: Yes Status: Acute Code(s): E11.9 - TYPE 2 DIABETES MELLITUS WITHOUT COMPLICATIONS SNOMED Code(s): 27102882 Comment: now poorly controlled; will resume 70/30 (5) CKD (chronic kidney disease) Current Visit: Yes Status: Acute Code(s): N18.9 - CHRONIC KIDNEY DISEASE, UNSPECIFIED SNOMED Code(s): 748487298 Comment: at baseline Status and Disposition: Can transfer to floor from ICU.Orders placed
[2018-02-22] MEDS ORDERED: Magnesium Oxide TAB* 400 MG PO ONE (13:44)
[2018-02-22] MEDS ORDERED: Magnesium Hydroxide LIQ* 30 ML UDC PO PRN (13:53)
[2018-02-22] MEDS: Polyethylene Glycol 3350* 17 GM PACKET PO PRN (15:03)
[2018-02-22] MEDS: Saline NASAL SPRAY 0.65%* BTL BOTH NARES PRN (15:10)
[2018-02-22] MEDS ORDERED: Azithromycin TAB* 250 MG PO SCH (21:00)
[2018-02-23] MEDS: Levothyroxine TAB* 25 MCG TAB PO SCH (05:49)
[2018-02-23] MEDS: Heparin VIAL(*) 5000 UNITS/ML VIAL (FIVE THOUSAND) SUBCUT SCH ×3 (05:49→22:05)
[2018-02-23] MEDS ORDERED: Insulin ISOPH/REG 70/30 (*) 1 UNITS UNIT SUBCUT SCH (08:00)
[2018-02-23] MEDS: Insulin LISPRO* 1 UNITS UNIT SUBCUT SCH ×4 (09:12→22:05)
[2018-02-23] MEDS: Carvedilol TAB* 6.25 MG PO SCH ×2 (09:13→22:05)
[2018-02-23] MEDS: Ascorbic Acid TAB* 500 MG PO SCH (09:14)
[2018-02-23] MEDS: Lisinopril TAB* 5 MG PO SCH (09:14)
[2018-02-23] MEDS: Omeprazole CAP (NF) 20 MG CAP.DR PO SCH (09:14)
[2018-02-23] MEDS: Furosemide TAB* 40 MG PO SCH (09:14)
[2018-02-23] MEDS: Atorvastatin* 20 MG TAB PO SCH (09:14)
[2018-02-23] MEDS: Aspirin 81 mg CHEW TAB* 81 MG TAB.CHEW PO SCH (09:14)
[2018-02-23] MEDS: Cyanocobalamin TAB* 500 MCG PO SCH ×2 (09:14→22:05)
[2018-02-23] MEDS: Ferrous Sulfate TAB* 325 MG PO SCH (09:14)
[2018-02-23] MEDS: Saline NASAL SPRAY 0.65%* BTL BOTH NARES PRN (10:50)
[2018-02-23] MEDS: Hydroxychloroquine TAB* 200 MG PO SCH (10:51)
--- NOTE | 2018-02-23 16:40 | PN ---
Subjective Date of Service: 02/23/18 Interval History: Less SOB than on admission. Hasn't tried to walk today. Objective Active Medications: Acetaminophen (Tylenol Tab*) 650 mg PO Q6H PRN PRN Reason: PAIN Last Admin: 02/19/18 11:35 Dose: 650 mg Albuterol (Ventolin 2.5 Mg/3 Ml Neb.Rivka*) 2.5 mg INH QID PRN PRN Reason: SOB/WHEEZING Last Admin: 02/19/18 07:59 Dose: 2.5 mg Albuterol (Ventolin Hfa Inhaler*) 2 puff INH Q6H PRN PRN Reason: SHORTNESS OF BREATH Last Admin: 02/19/18 19:38 Dose: 2 puff Ascorbic Acid (Vitamin C Tab*) 500 mg PO DAILY [facility] Last Admin: 02/23/18 09:14 Dose: 500 mg Aspirin (Aspirin 81 Mg Chew Tab*) 81 mg PO DAILY [facility] Last Admin: 02/23/18 09:14 Dose: 81 mg Atorvastatin Calcium (Lipitor*) 20 mg PO DAILY [facility] Last Admin: 02/23/18 09:14 Dose: 20 mg Bisacodyl (Dulcolax Supp*) 10 mg AL DAILY PRN PRN Reason: CONSTIPATION Carvedilol (Coreg Tab*) 12.5 mg PO BID [facility] Last Admin: 02/23/18 09:13 Dose: 12.5 mg Cyanocobalamin (Vitamin B12 Tab*) 500 mcg PO BID [facility] Last Admin: 02/23/18 09:14 Dose: 500 mcg Dextrose (D50w Syringe 50 Ml*) 12.5 gm IV PUSH .FOR FS < 60 - SS PRN PRN Reason: FS < 60 Ferrous Sulfate (Ferrous Sulfate Tab*) 325 mg PO DAILY [facility] Last Admin: 02/23/18 09:14 Dose: 325 mg Guaifenesin/Dextromethorphan (Robitussin Dm*) 10 ml PO Q4H PRN PRN Reason: COUGH Last Admin: 02/19/18 22:41 Dose: 10 ml Heparin Sodium (Porcine) (Heparin Vial(*)) 5,000 units SUBCUT Q8HR [facility] Last Admin: 02/23/18 15:07 Dose: 5,000 units Hydroxychloroquine Sulfate (Plaquenil Tab*) 400 mg PO DAILY [facility] Last Admin: 02/23/18 10:51 Dose: 400 mg Insulin Human Isoph/Insulin Regular (Humulin 70/30 (*)) 5 units SUBCUT 0800 [facility] Last Admin: 02/23/18 09:11 Dose: 5 units Insulin Human Lispro (Humalog*) 0 units SUBCUT ACHS [facility]; Protocol Last Admin: 02/23/18 12:35 Dose: 1 units Levothyroxine Sodium (Synthroid Tab*) 25 mcg PO DAILY@0600 [facility] Last Admin: 02/23/18 05:49 Dose: 25 mcg Lisinopril (Prinivil Tab*) 2.5 mg PO DAILY [facility] Last Admin: 02/23/18 09:14 Dose: 2.5 mg Magnesium Hydroxide (Milk Of Magnoral Liq*) 30 ml PO Q4H PRN PRN Reason: CONSTIPATION Last Admin: 02/22/18 15:01 Dose: 30 ml Nitroglycerin (Nitroglycerin Tab 0.4 Mg*) 0.4 mg SL Q5M PRN PRN Reason: ANGINA Omeprazole (Prilosec Cap*) 20 mg PO DAILY@0730 [facility] Last Admin: 02/23/18 09:14 Dose: 20 mg Polyethylene Glycol/Electrolytes (Miralax*) 17 gm PO DAILY PRN PRN Reason: CONSTIPATION Last Admin: 02/22/18 15:03 Dose: 17 gm Sodium Chloride (Sodium Chloride 0.65% Nasal [place]*) 1 spray BOTH NARES Q4H PRN PRN Reason: CONGESTION Last Admin: 02/23/18 10:50 Dose: 1 spray Torsemide (Demadex*) 20 mg PO DAILY [facility] Oxygen Devices in Use Now: None Appearance: Alert, in a chair. In good spirits. Loooks comfortable, breathing quietly. Eyes: No Scleral Icterus Respiratory: Symmetrical Chest Expansion and Respiratory Effort, Clear to Auscultation, Clear to Percussion Cardiovascular: RRR, - - prominent S4, 1/6 systolic murmur, 2-3+ edemaBL Extremities: No Clubbing, Cyanosis, - - 2-3+ edemaBL Skin: No Rash or Ulcers, No Nodules or Sclerosis, - Neurological: Alert and Oriented x 3, NL Sensation Result Diagrams: 02/22/18 05:16 02/22/18 05:16 Microbiology and Other Data: Microbiology 02/20/18 05:45 Nasal Screen MRSA (PCR) - Final Nasal Mrsa Not Detected 02/18/18 18:03 Aerobic Blood Culture - Preliminary Blood Venous No Growth Day 1 Anaerobic Blood Culture - Preliminary No Growth Day 1 02/18/18 18:10 Aerobic Blood Culture - Preliminary Blood Venous No Growth Day 1 Anaerobic Blood Culture - Preliminary No Growth Day 1 Assess/Plan/Problems-Billing Assessment: 78 y/o with history of TAVR, CKD, hypergammaglobulinemia, PH, TR and recent admission for COPD exacerbation/pneumonia admitted on 02/18 with shortness of breath and found to be volume overloaded - Patient Problems (1) CHF exacerbation Current Visit: Yes Status: Acute Code(s): I50.9 - HEART FAILURE, UNSPECIFIED SNOMED Code(s): 85138638 Comment: Acute on chronic systolic CHF. Change to torsemide 20 mg daily 02/24/18. Continue lisinopril, carvedilol. Pt has not been weighing herself at home, does keep a low salt diet. (2) CKD (chronic kidney disease) Current Visit: Yes Status: Acute Code(s): N18.9 - CHRONIC KIDNEY DISEASE, UNSPECIFIED SNOMED Code(s): 611745503 Comment: Repeat BMP 02/24/18. (3) Diabetes Current Visit: Yes Status: Acute Code(s): E11.9 - TYPE 2 DIABETES MELLITUS WITHOUT COMPLICATIONS SNOMED Code(s): 18856096 Comment: Resume 70/30 at half home dose 02/23/18 PM. Continue Lispro SS. (4) Aortic stenosis Current Visit: No Status: Chronic Priority: Low Code(s): I35.0 - NONRHEUMATIC AORTIC (VALVE) STENOSIS SNOMED Code(s): 75604427 Comment: s/p recent LISY procedure. (5) Hypothyroid Current Visit: No Status: Chronic Code(s): E03.9 - HYPOTHYROIDISM, UNSPECIFIED SNOMED Code(s): 01814855 Comment: Continue home dose of synthroid. TS wnl 02/16/18. Status and Disposition: Can transfer to floor from ICU.Orders placed
[2018-02-23] MEDS: Insulin ISOPH/REG 70/30 (*) 1 UNITS UNIT SUBCUT SCH (17:22)
[2018-02-24] MEDS: Albuterol 2.5 MG/3 ML NEB.SOL* (0.083%) INH PRN ×2 (03:54)
[2018-02-24] MEDS: Heparin VIAL(*) 5000 UNITS/ML VIAL (FIVE THOUSAND) SUBCUT SCH ×3 (05:59→21:13)
[2018-02-24] MEDS: Levothyroxine TAB* 25 MCG TAB PO SCH (06:00)
[2018-02-24 07:54] LABS: BUN/Creatinine Ratio 23.8 (8-20); Calcium 6.5 mg/dL (8.6-10.3); EGFR Non-African American 35.4 (>60); Potassium 4.2 mmol/L (3.5-5.0)
[2018-02-24] MEDS: Insulin LISPRO* 1 UNITS UNIT SUBCUT SCH ×4 (09:03→21:12)
[2018-02-24] MEDS: Ferrous Sulfate TAB* 325 MG PO SCH (09:04)
[2018-02-24] MEDS: Cyanocobalamin TAB* 500 MCG PO SCH ×2 (09:04→21:12)
[2018-02-24] MEDS: Insulin ISOPH/REG 70/30 (*) 1 UNITS UNIT SUBCUT SCH ×2 (09:04→17:57)
[2018-02-24] MEDS: Atorvastatin* 20 MG TAB PO SCH (09:04)
[2018-02-24] MEDS: Omeprazole CAP (NF) 20 MG CAP.DR PO SCH (09:04)
[2018-02-24] MEDS: Aspirin 81 mg CHEW TAB* 81 MG TAB.CHEW PO SCH (09:04)
[2018-02-24] MEDS: Torsemide TAB* 20 MG PO SCH (09:05)
[2018-02-24] MEDS: Ascorbic Acid TAB* 500 MG PO SCH (09:05)
[2018-02-24] MEDS: Carvedilol TAB* 6.25 MG PO SCH ×2 (09:05→21:12)
[2018-02-24] MEDS: Lisinopril TAB* 5 MG PO SCH (09:05)
[2018-02-24] MEDS: Hydroxychloroquine TAB* 200 MG PO SCH (09:18)
--- NOTE | 2018-02-24 14:17 | PN ---
Subjective Date of Service: 02/24/18 Interval History: Pt c/o fatigue, SOB. Objective Active Medications: Acetaminophen (Tylenol Tab*) 650 mg PO Q6H PRN PRN Reason: PAIN Last Admin: 02/19/18 11:35 Dose: 650 mg Albuterol (Ventolin 2.5 Mg/3 Ml Neb.Rivka*) 2.5 mg INH QID PRN PRN Reason: SOB/WHEEZING Last Admin: 02/24/18 03:54 Dose: 2.5 mg Albuterol (Ventolin Hfa Inhaler*) 2 puff INH Q6H PRN PRN Reason: SHORTNESS OF BREATH Last Admin: 02/19/18 19:38 Dose: 2 puff Ascorbic Acid (Vitamin C Tab*) 500 mg PO DAILY [facility] Last Admin: 02/24/18 09:05 Dose: 500 mg Aspirin (Aspirin 81 Mg Chew Tab*) 81 mg PO DAILY [facility] Last Admin: 02/24/18 09:04 Dose: 81 mg Atorvastatin Calcium (Lipitor*) 20 mg PO DAILY [facility] Last Admin: 02/24/18 09:04 Dose: 20 mg Bisacodyl (Dulcolax Supp*) 10 mg [place] DAILY PRN PRN Reason: CONSTIPATION Carvedilol (Coreg Tab*) 12.5 mg PO BID [facility] Last Admin: 02/24/18 09:05 Dose: 12.5 mg Cyanocobalamin (Vitamin B12 Tab*) 500 mcg PO BID [facility] Last Admin: 02/24/18 09:04 Dose: 500 mcg Dextrose (D50w Syringe 50 Ml*) 12.5 gm IV PUSH .FOR FS < 60 - SS PRN PRN Reason: FS < 60 Ferrous Sulfate (Ferrous Sulfate Tab*) 325 mg PO DAILY [facility] Last Admin: 02/24/18 09:04 Dose: 325 mg Guaifenesin/Dextromethorphan (Robitussin Dm*) 10 ml PO Q4H PRN PRN Reason: COUGH Last Admin: 02/19/18 22:41 Dose: 10 ml Heparin Sodium (Porcine) (Heparin Vial(*)) 5,000 units SUBCUT Q8HR [facility] Last Admin: 02/24/18 05:59 Dose: 5,000 units Hydroxychloroquine Sulfate (Plaquenil Tab*) 400 mg PO DAILY [facility] Last Admin: 02/24/18 09:18 Dose: 400 mg Insulin Human Isoph/Insulin Regular (Humulin 70/30 (*)) 5 units SUBCUT 1700 [facility] Last Admin: 02/23/18 17:22 Dose: 5 units Insulin Human Isoph/Insulin Regular (Humulin 70/30 (*)) 10 units SUBCUT 0800 [facility] Last Admin: 02/24/18 09:04 Dose: 10 units Insulin Human Lispro (Humalog*) 0 units SUBCUT ACHS [facility]; Protocol Last Admin: 02/24/18 11:32 Dose: Not Given Levothyroxine Sodium (Synthroid Tab*) 25 mcg PO DAILY@0600 [facility] Last Admin: 02/24/18 06:00 Dose: 25 mcg Lisinopril (Prinivil Tab*) 2.5 mg PO DAILY [facility] Last Admin: 02/24/18 09:05 Dose: 2.5 mg Magnesium Hydroxide (Milk Of Magnesia Liq*) 30 ml PO Q4H PRN PRN Reason: CONSTIPATION Last Admin: 02/22/18 15:01 Dose: 30 ml Nitroglycerin (Nitroglycerin Tab 0.4 Mg*) 0.4 mg SL Q5M PRN PRN Reason: ANGINA Omeprazole (Prilosec Cap*) 20 mg PO DAILY@0730 [facility] Last Admin: 02/24/18 09:04 Dose: 20 mg Polyethylene Glycol/Electrolytes (Miralax*) 17 gm PO DAILY PRN PRN Reason: CONSTIPATION Last Admin: 02/22/18 15:03 Dose: 17 gm Sodium Chloride (Sodium Chloride 0.65% Nasal [place]*) 1 spray BOTH NARES Q4H PRN PRN Reason: CONGESTION Last Admin: 02/23/18 10:50 Dose: 1 spray Torsemide (Demadex*) 20 mg PO DAILY [facility] Last Admin: 02/24/18 09:05 Dose: 20 mg Vital Signs - 8 hr 02/24/18 02/24/18 02/24/18 07:40 08:00 11:38 Temperature 98.6 F 98.6 F Pulse Rate 64 59 Respiratory 18 17 20 Rate Blood Pressure 144/50 125/39 (mmHg) O2 Sat by Pulse 99 99 Oximetry Oxygen Devices in Use Now: None Appearance: Alert, in a chair. In fair spirits. Looks comfortable. Eyes: No Scleral Icterus Neck: NL Appearance and Movements; NL JVP, No Thyroid Enlargement, Masses Respiratory: Symmetrical Chest Expansion and Respiratory Effort, Clear to Auscultation, Clear to Percussion Cardiovascular: NL Sounds; No Murmurs; No JVD, RRR, No Edema, - Extremities: No Clubbing, Cyanosis - 3+ edema BL Skin: No Rash or Ulcers, No Nodules or Sclerosis Neurological: Alert and Oriented x 3, NL Sensation Result Diagrams: 02/22/18 05:16 02/24/18 07:20 Microbiology and Other Data: Microbiology 02/20/18 05:45 Nasal Screen MRSA (PCR) - Final Nasal Mrsa Not Detected 02/18/18 18:03 Aerobic Blood Culture - Preliminary Blood Venous No Growth Day 1 Anaerobic Blood Culture - Preliminary No Growth Day 1 02/18/18 18:10 Aerobic Blood Culture - Preliminary Blood Venous No Growth Day 1 Anaerobic Blood Culture - Preliminary No Growth Day 1 Assess/Plan/Problems-Billing Assessment: 78 y/o with history of TAVR, CKD, hypergammaglobulinemia, PH, TR and recent admission for COPD exacerbation/pneumonia admitted on 02/18 with shortness of breath and found to be volume overloaded - Patient Problems (1) CHF exacerbation Current Visit: Yes Status: Acute Code(s): I50.9 - HEART FAILURE, UNSPECIFIED SNOMED Code(s): 50496033 Comment: Acute on chronic systolic CHF. Continue torsemide 20 mg daily. Continue lisinopril, carvedilol. Pt has not been weighing herself at home, does keep a low salt diet. (2) CKD (chronic kidney disease) Current Visit: Yes Status: Acute Code(s): N18.9 - CHRONIC KIDNEY DISEASE, UNSPECIFIED SNOMED Code(s): 754728421 Comment: Repeat BMP in 2-3 days. (3) Diabetes Current Visit: Yes Status: Acute Code(s): E11.9 - TYPE 2 DIABETES MELLITUS WITHOUT COMPLICATIONS SNOMED Code(s): 06991119 Comment: Continue 70/30 at half home dose 02/23/18 PM. Continue Lispro SS. (4) Aortic stenosis Current Visit: No Status: Chronic Priority: Low Code(s): I35.0 - NONRHEUMATIC AORTIC (VALVE) STENOSIS SNOMED Code(s): 27019891 Comment: s/p recent LISY procedure. (5) Hypothyroid Current Visit: No Status: Chronic Code(s): E03.9 - HYPOTHYROIDISM, UNSPECIFIED SNOMED Code(s): 62777352 Comment: Continue home dose of synthroid. TSH wnl 02/16/18. Status and Disposition: Can transfer to floor from ICU.Orders placed
[2018-02-24] MEDS: Melatonin 3 MG TAB PO PRN (21:40)
[2018-02-25] MEDS: Heparin VIAL(*) 5000 UNITS/ML VIAL (FIVE THOUSAND) SUBCUT SCH ×3 (06:17→20:32)
[2018-02-25] MEDS: Levothyroxine TAB* 25 MCG TAB PO SCH (06:17)
[2018-02-25] MEDS: Insulin LISPRO* 1 UNITS UNIT SUBCUT SCH ×4 (09:07→20:30)
[2018-02-25] MEDS: Ferrous Sulfate TAB* 325 MG PO SCH (09:19)
[2018-02-25] MEDS: Ascorbic Acid TAB* 500 MG PO SCH (09:19)
[2018-02-25] MEDS: Torsemide TAB* 20 MG PO SCH (09:20)
[2018-02-25] MEDS: Carvedilol TAB* 6.25 MG PO SCH ×2 (09:20→20:30)
[2018-02-25] MEDS: Omeprazole CAP (NF) 20 MG CAP.DR PO SCH (09:20)
[2018-02-25] MEDS: Lisinopril TAB* 5 MG PO SCH (09:20)
[2018-02-25] MEDS: Aspirin 81 mg CHEW TAB* 81 MG TAB.CHEW PO SCH (09:20)
[2018-02-25] MEDS: Cyanocobalamin TAB* 500 MCG PO SCH ×2 (09:20→20:30)
[2018-02-25] MEDS: Atorvastatin* 20 MG TAB PO SCH (09:20)
[2018-02-25] MEDS: Diphenoxylat/Atrop 2.5-0.025M* 1 TAB PO PRN (10:23)
[2018-02-25] MEDS: Hydroxychloroquine TAB* 200 MG PO SCH (10:23)
[2018-02-25] MEDS: Insulin ISOPH/REG 70/30 (*) 1 UNITS UNIT SUBCUT SCH ×2 (10:23→16:58)
--- NOTE | 2018-02-25 16:17 | PN ---
Subjective Date of Service: 02/25/18 Interval History: No new c/o, feels well. Objective Active Medications: Acetaminophen (Tylenol Tab*) 650 mg PO Q6H PRN PRN Reason: PAIN Last Admin: 02/19/18 11:35 Dose: 650 mg Albuterol (Ventolin 2.5 Mg/3 Ml Neb.Rivka*) 2.5 mg INH QID PRN PRN Reason: SOB/WHEEZING Last Admin: 02/24/18 03:54 Dose: 2.5 mg Albuterol (Ventolin Hfa Inhaler*) 2 puff INH Q6H PRN PRN Reason: SHORTNESS OF BREATH Last Admin: 02/19/18 19:38 Dose: 2 puff Ascorbic Acid (Vitamin C Tab*) 500 mg PO DAILY [facility] Last Admin: 02/25/18 09:19 Dose: 500 mg Aspirin (Aspirin 81 Mg Chew Tab*) 81 mg PO DAILY [facility] Last Admin: 02/25/18 09:20 Dose: 81 mg Atorvastatin Calcium (Lipitor*) 20 mg PO DAILY [facility] Last Admin: 02/25/18 09:20 Dose: 20 mg Bisacodyl (Dulcolax Supp*) 10 mg [place] DAILY PRN PRN Reason: CONSTIPATION Carvedilol (Coreg Tab*) 12.5 mg PO BID [facility] Last Admin: 02/25/18 09:20 Dose: 12.5 mg Cyanocobalamin (Vitamin B12 Tab*) 500 mcg PO BID [facility] Last Admin: 02/25/18 09:20 Dose: 500 mcg Dextrose (D50w Syringe 50 Ml*) 12.5 gm IV PUSH .FOR FS < 60 - SS PRN PRN Reason: FS < 60 Diphenoxylate HCl/Atropine (Lomotil Tab*) 1 tab PO DAILY PRN PRN Reason: DIARRHEA Last Admin: 02/25/18 10:23 Dose: 1 tab Ferrous Sulfate (Ferrous Sulfate Tab*) 325 mg PO DAILY [facility] Last Admin: 02/25/18 09:19 Dose: 325 mg Guaifenesin/Dextromethorphan (Robitussin Dm*) 10 ml PO Q4H PRN PRN Reason: COUGH Last Admin: 02/19/18 22:41 Dose: 10 ml Heparin Sodium (Porcine) (Heparin Vial(*)) 5,000 units SUBCUT Q8HR [facility] Last Admin: 02/25/18 13:31 Dose: 5,000 units Hydroxychloroquine Sulfate (Plaquenil Tab*) 400 mg PO DAILY [facility] Last Admin: 02/25/18 10:23 Dose: 400 mg Insulin Human Isoph/Insulin Regular (Humulin 70/30 (*)) 5 units SUBCUT 1700 [facility] Last Admin: 02/24/18 17:57 Dose: 5 units Insulin Human Isoph/Insulin Regular (Humulin 70/30 (*)) 10 units SUBCUT 0800 [facility] Last Admin: 02/25/18 10:23 Dose: 10 units Insulin Human Lispro (Humalog*) 0 units SUBCUT ACHS [facility]; Protocol Last Admin: 02/25/18 12:41 Dose: 1 units Levothyroxine Sodium (Synthroid Tab*) 25 mcg PO DAILY@0600 [facility] Last Admin: 02/25/18 06:17 Dose: 25 mcg Lisinopril (Prinivil Tab*) 2.5 mg PO DAILY [facility] Last Admin: 02/25/18 09:20 Dose: 2.5 mg Magnesium Hydroxide (Milk Of Magnoral Liq*) 30 ml PO Q4H PRN PRN Reason: CONSTIPATION Last Admin: 02/22/18 15:01 Dose: 30 ml Melatonin (Melatonin) 3 mg PO BEDTIME PRN PRN Reason: INSOMNIA Last Admin: 02/24/18 21:40 Dose: 3 mg Nitroglycerin (Nitroglycerin Tab 0.4 Mg*) 0.4 mg SL Q5M PRN PRN Reason: ANGINA Omeprazole (Prilosec Cap*) 20 mg PO DAILY@0730 [facility] Last Admin: 02/25/18 09:20 Dose: 20 mg Polyethylene Glycol/Electrolytes (Miralax*) 17 gm PO DAILY PRN PRN Reason: CONSTIPATION Last Admin: 02/22/18 15:03 Dose: 17 gm Sodium Chloride (Sodium Chloride 0.65% Nasal [place]*) 1 spray BOTH NARES Q4H PRN PRN Reason: CONGESTION Last Admin: 02/23/18 10:50 Dose: 1 spray Torsemide (Demadex*) 20 mg PO DAILY [facility] Last Admin: 02/25/18 09:20 Dose: 20 mg Vital Signs - 8 hr 02/25/18 02/25/18 02/25/18 10:23 11:43 12:53 Temperature 98.6 F Pulse Rate 62 Respiratory 15 14 15 Rate Blood Pressure 118/39 (mmHg) O2 Sat by Pulse 100 Oximetry 02/25/18 15:11 Temperature 98.2 F Pulse Rate 68 Respiratory 16 Rate Blood Pressure 147/48 (mmHg) O2 Sat by Pulse 100 Oximetry Oxygen Devices in Use Now: None Appearance: Alert, in a chair. In good spirits. Looks comfortable. Eyes: No Scleral Icterus Respiratory: Symmetrical Chest Expansion and Respiratory Effort, Clear to Auscultation, Clear to Percussion Cardiovascular: NL Sounds; No Murmurs; No JVD, RRR, No Edema, - Extremities: No Clubbing, Cyanosis, - - 2+ edema BL Skin: No Rash or Ulcers, No Nodules or Sclerosis, - Neurological: Alert and Oriented x 3, NL Sensation Result Diagrams: 02/22/18 05:16 02/24/18 07:20 Microbiology and Other Data: Microbiology 02/20/18 05:45 Nasal Screen MRSA (PCR) - Final Nasal Mrsa Not Detected 02/18/18 18:03 Aerobic Blood Culture - Preliminary Blood Venous No Growth Day 1 Anaerobic Blood Culture - Preliminary No Growth Day 1 02/18/18 18:10 Aerobic Blood Culture - Preliminary Blood Venous No Growth Day 1 Anaerobic Blood Culture - Preliminary No Growth Day 1 Assess/Plan/Problems-Billing Assessment: 78 y/o with history of TAVR, CKD, hypergammaglobulinemia, PH, TR and recent admission for COPD exacerbation/pneumonia admitted on 02/18 with shortness of breath and found to be volume overloaded - Patient Problems (1) CHF exacerbation Current Visit: Yes Status: Acute Code(s): I50.9 - HEART FAILURE, UNSPECIFIED SNOMED Code(s): 33626840 Comment: Acute on chronic systolic CHF. Continue torsemide 20 mg daily. Continue lisinopril, carvedilol. Pt has not been weighing herself at home, does keep a low salt diet. Plan BMP 02/27. (2) CKD (chronic kidney disease) Current Visit: Yes Status: Acute Code(s): N18.9 - CHRONIC KIDNEY DISEASE, UNSPECIFIED SNOMED Code(s): 530637655 Comment: Repeat BMP 02/27. (3) Diabetes Current Visit: Yes Status: Acute Code(s): E11.9 - TYPE 2 DIABETES MELLITUS WITHOUT COMPLICATIONS SNOMED Code(s): 39659488 Comment: Continue 70/30 at half home dose. Continue Lispro SS. (4) Aortic stenosis Current Visit: No Status: Chronic Priority: Low Code(s): I35.0 - NONRHEUMATIC AORTIC (VALVE) STENOSIS SNOMED Code(s): 86007494 Comment: s/p recent LISY procedure. (5) Hypothyroid Current Visit: No Status: Chronic Code(s): E03.9 - HYPOTHYROIDISM, UNSPECIFIED SNOMED Code(s): 06154115 Comment: Continue home dose of synthroid. TSH wnl 02/16/18. Status and Disposition: Can transfer to floor from ICU.Orders placed
[2018-02-25] MEDS: GuaiFENesin DM* 5 ML UDC PO PRN (20:41)
[2018-02-25] MEDS: Melatonin 3 MG TAB PO PRN (20:43)
[2018-02-26] MEDS: GuaiFENesin DM* 5 ML UDC PO PRN ×2 (01:05→08:52)
[2018-02-26] MEDS: Heparin VIAL(*) 5000 UNITS/ML VIAL (FIVE THOUSAND) SUBCUT SCH ×3 (05:15→20:51)
[2018-02-26] MEDS: Levothyroxine TAB* 25 MCG TAB PO SCH (05:15)
[2018-02-26] MEDS: Albuterol 2.5 MG/3 ML NEB.SOL* (0.083%) INH PRN ×3 (05:54→20:40)
[2018-02-26] MEDS: Insulin LISPRO* 1 UNITS UNIT SUBCUT SCH ×4 (07:33→20:22)
[2018-02-26] MEDS: Torsemide TAB* 20 MG PO SCH (08:50)
[2018-02-26] MEDS: Lisinopril TAB* 5 MG PO SCH (08:50)
[2018-02-26] MEDS: Atorvastatin* 20 MG TAB PO SCH (08:50)
[2018-02-26] MEDS: Omeprazole CAP (NF) 20 MG CAP.DR PO SCH (08:50)
[2018-02-26] MEDS: Hydroxychloroquine TAB* 200 MG PO SCH (08:50)
[2018-02-26] MEDS: Ferrous Sulfate TAB* 325 MG PO SCH (08:50)
[2018-02-26] MEDS: Carvedilol TAB* 6.25 MG PO SCH ×2 (08:50→20:09)
[2018-02-26] MEDS: Aspirin 81 mg CHEW TAB* 81 MG TAB.CHEW PO SCH (08:50)
[2018-02-26] MEDS: Cyanocobalamin TAB* 500 MCG PO SCH ×2 (08:51→20:09)
[2018-02-26] MEDS: Ascorbic Acid TAB* 500 MG PO SCH (08:51)
[2018-02-26] MEDS: Insulin ISOPH/REG 70/30 (*) 1 UNITS UNIT SUBCUT SCH ×2 (08:51→17:49)
[2018-02-26] MEDS: Diphenoxylat/Atrop 2.5-0.025M* 1 TAB PO PRN (14:38)
--- NOTE | 2018-02-26 16:07 | PN ---
Subjective Date of Service: 02/26/18 Interval History: SOB during this afternoon, got better with albuterol neb tx. Objective Active Medications: Acetaminophen (Tylenol Tab*) 650 mg PO Q6H PRN PRN Reason: PAIN Last Admin: 02/19/18 11:35 Dose: 650 mg Albuterol (Ventolin 2.5 Mg/3 Ml Neb.Rivka*) 2.5 mg INH QID PRN PRN Reason: SOB/WHEEZING Last Admin: 02/26/18 14:38 Dose: 2.5 mg Albuterol (Ventolin Hfa Inhaler*) 2 puff INH Q6H PRN PRN Reason: SHORTNESS OF BREATH Last Admin: 02/19/18 19:38 Dose: 2 puff Ascorbic Acid (Vitamin C Tab*) 500 mg PO DAILY [facility] Last Admin: 02/26/18 08:51 Dose: 500 mg Aspirin (Aspirin 81 Mg Chew Tab*) 81 mg PO DAILY [facility] Last Admin: 02/26/18 08:50 Dose: 81 mg Atorvastatin Calcium (Lipitor*) 20 mg PO DAILY [facility] Last Admin: 02/26/18 08:50 Dose: 20 mg Bisacodyl (Dulcolax Supp*) 10 mg [place] DAILY PRN PRN Reason: CONSTIPATION Carvedilol (Coreg Tab*) 12.5 mg PO BID [facility] Last Admin: 02/26/18 08:50 Dose: 12.5 mg Cyanocobalamin (Vitamin B12 Tab*) 500 mcg PO BID [facility] Last Admin: 02/26/18 08:51 Dose: 500 mcg Dextrose (D50w Syringe 50 Ml*) 12.5 gm IV PUSH .FOR FS < 60 - SS PRN PRN Reason: FS < 60 Diphenoxylate HCl/Atropine (Lomotil Tab*) 1 tab PO DAILY PRN PRN Reason: DIARRHEA Last Admin: 02/26/18 14:38 Dose: 1 tab Ferrous Sulfate (Ferrous Sulfate Tab*) 325 mg PO DAILY [facility] Last Admin: 02/26/18 08:50 Dose: 325 mg Guaifenesin (Robitussin*) 10 ml PO QID [facility] Guaifenesin/Dextromethorphan (Robitussin Dm*) 10 ml PO Q4H PRN PRN Reason: COUGH Last Admin: 02/26/18 08:52 Dose: 10 ml Heparin Sodium (Porcine) (Heparin Vial(*)) 5,000 units SUBCUT Q8HR [facility] Last Admin: 02/26/18 14:31 Dose: 5,000 units Hydroxychloroquine Sulfate (Plaquenil Tab*) 400 mg PO DAILY [facility] Last Admin: 02/26/18 08:50 Dose: 400 mg Insulin Human Isoph/Insulin Regular (Humulin 70/30 (*)) 5 units SUBCUT 1700 [facility] Last Admin: 02/25/18 16:58 Dose: 5 units Insulin Human Isoph/Insulin Regular (Humulin 70/30 (*)) 10 units SUBCUT 0800 [facility] Last Admin: 02/26/18 08:51 Dose: 10 units Insulin Human Lispro (Humalog*) 0 units SUBCUT ACHS [facility]; Protocol Last Admin: 02/26/18 12:54 Dose: Not Given Levothyroxine Sodium (Synthroid Tab*) 25 mcg PO DAILY@0600 [facility] Last Admin: 02/26/18 05:15 Dose: 25 mcg Lisinopril (Prinivil Tab*) 2.5 mg PO DAILY [facility] Last Admin: 02/26/18 08:50 Dose: 2.5 mg Magnesium Hydroxide (Milk Of Magnesia Liq*) 30 ml PO Q4H PRN PRN Reason: CONSTIPATION Last Admin: 02/22/18 15:01 Dose: 30 ml Melatonin (Melatonin) 3 mg PO BEDTIME PRN PRN Reason: INSOMNIA Last Admin: 02/25/18 20:43 Dose: 3 mg Mometasone Furoate/Formoterol Fumar (Dulera 200/5 Mdi*) 2 puff INH BID [facility] Nitroglycerin (Nitroglycerin Tab 0.4 Mg*) 0.4 mg SL Q5M PRN PRN Reason: ANGINA Omeprazole (Prilosec Cap*) 20 mg PO DAILY@0730 [facility] Last Admin: 02/26/18 08:50 Dose: 20 mg Polyethylene Glycol/Electrolytes (Miralax*) 17 gm PO DAILY PRN PRN Reason: CONSTIPATION Last Admin: 02/22/18 15:03 Dose: 17 gm Sodium Chloride (Sodium Chloride 0.65% Nasal [place]*) 1 spray BOTH NARES Q4H PRN PRN Reason: CONGESTION Last Admin: 02/23/18 10:50 Dose: 1 spray Torsemide (Demadex*) 20 mg PO DAILY [facility] Last Admin: 02/26/18 08:50 Dose: 20 mg Vital Signs - 8 hr 02/26/18 02/26/18 02/26/18 08:04 11:17 14:38 Temperature 97.1 F 98.4 F Pulse Rate 62 63 Respiratory 16 16 20 Rate Blood Pressure 145/54 123/39 (mmHg) O2 Sat by Pulse 100 100 Oximetry Oxygen Devices in Use Now: Nasal Cannula Respiratory: Clear to Percussion, - - mild scattered rhonchi BL Skin: No Rash or Ulcers, No Nodules or Sclerosis, - Neurological: Alert and Oriented x 3, NL Sensation Result Diagrams: 02/22/18 05:16 02/24/18 07:20 Microbiology and Other Data: Microbiology 02/20/18 05:45 Nasal Screen MRSA (PCR) - Final Nasal Mrsa Not Detected 02/18/18 18:03 Aerobic Blood Culture - Preliminary Blood Venous No Growth Day 1 Anaerobic Blood Culture - Preliminary No Growth Day 1 02/18/18 18:10 Aerobic Blood Culture - Preliminary Blood Venous No Growth Day 1 Anaerobic Blood Culture - Preliminary No Growth Day 1 Assess/Plan/Problems-Billing Assessment: 78 y/o with history of TAVR, CKD, hypergammaglobulinemia, PH, TR and recent admission for COPD exacerbation/pneumonia admitted on 02/18 with shortness of breath and found to be volume overloaded - Patient Problems (1) CHF exacerbation Current Visit: Yes Status: Acute Code(s): I50.9 - HEART FAILURE, UNSPECIFIED SNOMED Code(s): 28039115 Comment: Acute on chronic systolic CHF. Continue torsemide 20 mg daily. Continue lisinopril, carvedilol. Pt has not been weighing herself at home, does keep a low salt diet. BMP 02/27. (2) CKD (chronic kidney disease) Current Visit: Yes Status: Acute Code(s): N18.9 - CHRONIC KIDNEY DISEASE, UNSPECIFIED SNOMED Code(s): 938675850 Comment: Repeat BMP 02/27. (3) Diabetes Current Visit: Yes Status: Acute Code(s): E11.9 - TYPE 2 DIABETES MELLITUS WITHOUT COMPLICATIONS SNOMED Code(s): 37864518 Comment: Continue 70/30 at half home dose. Continue Lispro SS. (4) Aortic stenosis Current Visit: No Status: Chronic Priority: Low Code(s): I35.0 - NONRHEUMATIC AORTIC (VALVE) STENOSIS SNOMED Code(s): 12237857 Comment: s/p recent LISY procedure. (5) Hypothyroid Current Visit: No Status: Chronic Code(s): E03.9 - HYPOTHYROIDISM, UNSPECIFIED SNOMED Code(s): 45994191 Comment: Continue home dose of synthroid. TSH wnl 02/16/18. (6) COPD (chronic obstructive pulmonary disease) Current Visit: No Status: Acute Code(s): J44.9 - CHRONIC OBSTRUCTIVE PULMONARY DISEASE, UNSPECIFIED SNOMED Code(s): 46194569 Comment: Start Dulera 02/26/18 PM. -Continue Albuterol prn Status and Disposition: Can transfer to floor from ICU.Orders placed
[2018-02-26] MEDS: guaiFENesin LIQ* 100 MG/5 ML UDC PO SCH ×2 (17:48→20:08)
[2018-02-26] MEDS: Melatonin 3 MG TAB PO PRN (20:08)
[2018-02-26] MEDS: Mometasone/Formoter 200/5 MDI INH SCH (20:40)
[2018-02-27] MEDS ORDERED: Albuterol/Ipratropium NEB.SOL* Albuterol 2.5 MG/Ipratropium 0.5 MG 3 ML INH SCH (01:00)
[2018-02-27] MEDS: Albuterol 2.5 MG/3 ML NEB.SOL* (0.083%) INH SCH ×2 (01:03→05:57)
[2018-02-27] MEDS: Mometasone/Formoter 200/5 MDI INH SCH ×3 (05:57→20:17)
[2018-02-27] MEDS: Levothyroxine TAB* 25 MCG TAB PO SCH (06:07)
[2018-02-27] MEDS: Heparin VIAL(*) 5000 UNITS/ML VIAL (FIVE THOUSAND) SUBCUT SCH ×3 (06:07→20:57)
[2018-02-27 06:16] LABS: ABS Basophils 0 10^3/ul (0-0.2); ABS Eosinophils 0 10^3/ul (0-0.6); ABS Lymphocytes 0.4 10^3/ul (1.0-4.8); ABS Monocytes 0.4 10^3/ul (0-0.8); ABS Nucleated RBC 0 10^3/ul; Eosinophil % 0.3 %; Hematocrit 24 % (35-47); Hemoglobin 7.8 g/dl (12.0-16.0); Lymphocyte % 14.2 %; Mean Corpuscular HGB Conc 33 g/dl (31-36); Mean Corpuscular Hemoglobin 30 pg (27-31); Mean Corpuscular Volume 93 fL (80-97); Mean Platelet Volume 9.4 fL (7.4-10.4); Nucleated Red Blood Cells % 0.1; Platelet Count 115 10^3/ul (150-450); Red Blood Count 2.56 10^6/ul (4.00-5.40); Red Cell Distribution Width 18 % (10.5-15); White Blood Count 2.9 10^3/ul (3.5-10.8)
[2018-02-27 06:30] LABS: BUN/Creatinine Ratio 25.8 (8-20); Calcium 6.5 mg/dL (8.6-10.3); EGFR Non-African American 38.8 (>60); Potassium 4.5 mmol/L (3.5-5.0)
[2018-02-27] MEDS: Insulin LISPRO* 1 UNITS UNIT SUBCUT SCH ×4 (07:35→20:57)
[2018-02-27] MEDS: guaiFENesin LIQ* 100 MG/5 ML UDC PO SCH ×4 (08:23→19:57)
[2018-02-27] MEDS: Atorvastatin* 20 MG TAB PO SCH (08:24)
[2018-02-27] MEDS: Torsemide TAB* 20 MG PO SCH (08:24)
[2018-02-27] MEDS: Cyanocobalamin TAB* 500 MCG PO SCH ×2 (08:24→20:57)
[2018-02-27] MEDS: Lisinopril TAB* 5 MG PO SCH (08:24)
[2018-02-27] MEDS: Hydroxychloroquine TAB* 200 MG PO SCH (08:24)
[2018-02-27] MEDS: Omeprazole CAP (NF) 20 MG CAP.DR PO SCH (08:24)
[2018-02-27] MEDS: Ascorbic Acid TAB* 500 MG PO SCH (08:25)
[2018-02-27] MEDS: Ferrous Sulfate TAB* 325 MG PO SCH (08:25)
[2018-02-27] MEDS: Carvedilol TAB* 6.25 MG PO SCH ×2 (08:25→20:54)
[2018-02-27] MEDS: Insulin ISOPH/REG 70/30 (*) 1 UNITS UNIT SUBCUT SCH ×2 (08:25→18:11)
[2018-02-27] MEDS: Aspirin 81 mg CHEW TAB* 81 MG TAB.CHEW PO SCH (08:25)
[2018-02-27] MEDS: Diphenoxylat/Atrop 2.5-0.025M* 1 TAB PO PRN (09:24)
--- NOTE | 2018-02-27 10:45 | PN ---
Subjective Date of Service: 02/27/18 Interval History: feeling depressed. No shortness of breath. no chest pain. Objective Active Medications: Acetaminophen (Tylenol Tab*) 650 mg PO Q6H PRN PRN Reason: PAIN Last Admin: 02/19/18 11:35 Dose: 650 mg Albuterol (Ventolin 2.5 Mg/3 Ml Neb.Rivka*) 2.5 mg INH QID PRN PRN Reason: SOB/WHEEZING Last Admin: 02/26/18 20:40 Dose: 2.5 mg Albuterol (Ventolin Hfa Inhaler*) 2 puff INH Q6H PRN PRN Reason: SHORTNESS OF BREATH Last Admin: 02/19/18 19:38 Dose: 2 puff Albuterol (Ventolin 2.5 Mg/3 Ml Neb.Rivka*) 2.5 mg INH [id number] AWAKE PRN PRN Reason: SOB/WHEEZING Ascorbic Acid (Vitamin C Tab*) 500 mg PO DAILY [facility] Last Admin: 02/27/18 08:25 Dose: 500 mg Aspirin (Aspirin 81 Mg Chew Tab*) 81 mg PO DAILY [facility] Last Admin: 02/27/18 08:25 Dose: 81 mg Atorvastatin Calcium (Lipitor*) 20 mg PO DAILY [facility] Last Admin: 02/27/18 08:24 Dose: 20 mg Bisacodyl (Dulcolax Supp*) 10 mg [place] DAILY PRN PRN Reason: CONSTIPATION Carvedilol (Coreg Tab*) 12.5 mg PO BID [facility] Last Admin: 02/27/18 08:25 Dose: 12.5 mg Cyanocobalamin (Vitamin B12 Tab*) 500 mcg PO BID [facility] Last Admin: 02/27/18 08:24 Dose: 500 mcg Dextrose (D50w Syringe 50 Ml*) 12.5 gm IV PUSH .FOR FS < 60 - SS PRN PRN Reason: FS < 60 Diphenoxylate HCl/Atropine (Lomotil Tab*) 1 tab PO DAILY PRN PRN Reason: DIARRHEA Last Admin: 02/27/18 09:24 Dose: 1 tab Ferrous Sulfate (Ferrous Sulfate Tab*) 325 mg PO DAILY [facility] Last Admin: 02/27/18 08:25 Dose: 325 mg Guaifenesin (Robitussin*) 10 ml PO QID [facility] Last Admin: 02/27/18 08:23 Dose: 10 ml Heparin Sodium (Porcine) (Heparin Vial(*)) 5,000 units SUBCUT Q8HR [facility] Last Admin: 02/27/18 06:07 Dose: 5,000 units Hydroxychloroquine Sulfate (Plaquenil Tab*) 400 mg PO DAILY [facility] Last Admin: 02/27/18 08:24 Dose: 400 mg Insulin Human Isoph/Insulin Regular (Humulin 70/30 (*)) 5 units SUBCUT 1700 [facility] Last Admin: 02/26/18 17:49 Dose: 5 units Insulin Human Isoph/Insulin Regular (Humulin 70/30 (*)) 10 units SUBCUT 0800 [facility] Last Admin: 02/27/18 08:25 Dose: 10 units Insulin Human Lispro (Humalog*) 0 units SUBCUT ACHS [facility]; Protocol Last Admin: 02/27/18 07:35 Dose: Not Given Levothyroxine Sodium (Synthroid Tab*) 25 mcg PO DAILY@0600 [facility] Last Admin: 02/27/18 06:07 Dose: 25 mcg Lisinopril (Prinivil Tab*) 2.5 mg PO DAILY [facility] Last Admin: 02/27/18 08:24 Dose: 2.5 mg Magnesium Hydroxide (Milk Of Magnesia Liq*) 30 ml PO Q4H PRN PRN Reason: CONSTIPATION Last Admin: 02/22/18 15:01 Dose: 30 ml Melatonin (Melatonin) 3 mg PO BEDTIME PRN PRN Reason: INSOMNIA Last Admin: 02/26/18 20:08 Dose: 3 mg Mometasone Furoate/Formoterol Fumar (Dulera 200/5 Mdi*) 2 puff INH BID [facility] Last Admin: 02/27/18 07:15 Dose: Not Given Nitroglycerin (Nitroglycerin Tab 0.4 Mg*) 0.4 mg SL Q5M PRN PRN Reason: ANGINA Omeprazole (Prilosec Cap*) 20 mg PO DAILY@0730 [facility] Last Admin: 02/27/18 08:24 Dose: 20 mg Polyethylene Glycol/Electrolytes (Miralax*) 17 gm PO DAILY PRN PRN Reason: CONSTIPATION Last Admin: 02/22/18 15:03 Dose: 17 gm Sodium Chloride (Sodium Chloride 0.65% Nasal [place]*) 1 spray BOTH NARES Q4H PRN PRN Reason: CONGESTION Last Admin: 02/23/18 10:50 Dose: 1 spray Torsemide (Demadex*) 20 mg PO DAILY [facility] Last Admin: 02/27/18 08:24 Dose: 20 mg Vital Signs - 8 hr 02/27/18 02/27/18 02/27/18 03:36 05:57 07:25 Temperature 97.3 F 98.8 F Pulse Rate 64 68 60 Respiratory 16 20 20 Rate Blood Pressure 124/42 122/40 (mmHg) O2 Sat by Pulse 100 98 100 Oximetry 02/27/18 02/27/18 08:00 09:24 Temperature Pulse Rate Respiratory 18 18 Rate Blood Pressure (mmHg) O2 Sat by Pulse Oximetry Oxygen Devices in Use Now: Nasal Cannula Appearance: elderly female, pale appearing, sitting on chair, not in distress Ears/Nose/Mouth/Throat: Mucous Membranes Moist Respiratory: - - no tachypnea, no use of accessory muscles, mild bibasilar crackles. Cardiovascular: RRR - soft systolic murmur at the right upper sternal border, trace lower extremity edema, - Neurological: Alert and Oriented x 3 Result Diagrams: 02/27/18 05:47 02/27/18 05:47 Microbiology and Other Data: Microbiology 02/20/18 05:45 Nasal Screen MRSA (PCR) - Final Nasal Mrsa Not Detected 02/18/18 18:03 Aerobic Blood Culture - Preliminary Blood Venous No Growth Day 1 Anaerobic Blood Culture - Preliminary No Growth Day 1 02/18/18 18:10 Aerobic Blood Culture - Preliminary Blood Venous No Growth Day 1 Anaerobic Blood Culture - Preliminary No Growth Day 1 Assess/Plan/Problems-Billing Assessment: 78 y/o with history of TAVR, CKD, hypergammaglobulinemia, PH, TR and recent admission for COPD exacerbation/pneumonia admitted on 02/18 with shortness of breath and found to be volume overloaded - Patient Problems (1) Depressed Current Visit: Yes Status: Acute Code(s): F32.9 - MAJOR DEPRESSIVE DISORDER , SINGLE EPISODE, UNSPECIFIED SNOMED Code(s): 82189287 Comment: will add paroxeine 10mg, spiritual care consult (2) Acute systolic (congestive) heart failure Current Visit: Yes Status: Acute Code(s): I50.21 - ACUTE SYSTOLIC ( CONGESTIVE) HEART FAILURE SNOMED Code(s): 589693170 Comment: etiology unclear--will need an ischemic work up eventually; seen dr mining professionals- Dr. Lowry. diuresing well continue BB, WAYLON inhibitor has a pacer and may need an AICD for primary prevention but will need repeat TTE (3) CHF exacerbation Current Visit: Yes Status: Acute Code(s): I50.9 - HEART FAILURE, UNSPECIFIED SNOMED Code(s): 96797835 Comment: Acute on chronic systolic CHF. Continue torsemide 20 mg daily. Continue lisinopril, carvedilol. Pt has not been weighing herself at home, does keep a low salt diet. Currently on oxygen, does not wear oxygen at home, will try to wean off, otherwise will need to get her qualified for home O2. (4) CKD (chronic kidney disease) Current Visit: Yes Status: Acute Code(s): N18.9 - CHRONIC KIDNEY DISEASE, UNSPECIFIED SNOMED Code(s): 482249773 Comment: trend kidney function (5) Diabetes Current Visit: Yes Status: Acute Code(s): E11.9 - TYPE 2 DIABETES MELLITUS WITHOUT COMPLICATIONS SNOMED Code(s): 29222314 Comment: Continue 70/30 at half home dose. Continue Lispro SS. (6) Anemia Current Visit: No Status: Acute Priority: High Onset Date: 06/28/14 Code (s): D64.9 - ANEMIA, UNSPECIFIED SNOMED Code(s): 055784686 Comment: -Pt has chronic anemia; Hb at 7.8 today -Continue ferrous sulfate - Will get repeat hb later today for re-assessment. (7) DVT prophylaxis Current Visit: No Status: Acute Code(s): UXD0509 - SNOMED Code(s): 048933803 Comment: -SCD in place (8) Afib Current Visit: No Status: Chronic Code(s): I48.91 - UNSPECIFIED ATRIAL FIBRILLATION SNOMED Code(s): 74691470 Comment: Paced on tele. No anticoagulation secondary to peptic ulcer disease and chronic anemia. Continue coreg. (9) Aortic stenosis Current Visit: No Status: Chronic Priority: Low Code(s): I35.0 - NONRHEUMATIC AORTIC (VALVE) STENOSIS SNOMED Code(s): 99654873 Comment: s/p TAVR in 2016.
[2018-02-27] MEDS: PARoxetine HCL TAB* 10 MG PO SCH (12:03)
[2018-02-27 13:39] LABS: Hematocrit 26 % (35-47); Hemoglobin 8.4 g/dl (12.0-16.0)
[2018-02-27] MEDS: Albuterol 2.5 MG/3 ML NEB.SOL* (0.083%) INH PRN (20:17)
[2018-02-27] MEDS: Melatonin 3 MG TAB PO PRN (20:57)
[2018-02-28] MEDS: Albuterol 2.5 MG/3 ML NEB.SOL* (0.083%) INH PRN ×3 (03:43→20:35)
[2018-02-28] MEDS: Levothyroxine TAB* 25 MCG TAB PO SCH (05:42)
[2018-02-28] MEDS: Heparin VIAL(*) 5000 UNITS/ML VIAL (FIVE THOUSAND) SUBCUT SCH ×3 (05:42→21:30)
[2018-02-28 07:06] LABS: ABS Basophils 0 10^3/ul (0-0.2); ABS Eosinophils 0 10^3/ul (0-0.6); ABS Lymphocytes 0.5 10^3/ul (1.0-4.8); ABS Monocytes 0.4 10^3/ul (0-0.8); ABS Nucleated RBC 0 10^3/ul; Eosinophil % 0.3 %; Hematocrit 24 % (35-47); Hemoglobin 7.8 g/dl (12.0-16.0); Lymphocyte % 18.3 %; Mean Corpuscular HGB Conc 33 g/dl (31-36); Mean Corpuscular Hemoglobin 31 pg (27-31); Mean Corpuscular Volume 94 fL (80-97); Mean Platelet Volume 9.7 fL (7.4-10.4); Nucleated Red Blood Cells % 0.2; Platelet Count 102 10^3/ul (150-450); Red Blood Count 2.52 10^6/ul (4.00-5.40); Red Cell Distribution Width 18 % (10.5-15); White Blood Count 2.9 10^3/ul (3.5-10.8)
[2018-02-28] MEDS: Insulin LISPRO* 1 UNITS UNIT SUBCUT SCH ×4 (07:33→22:06)
[2018-02-28] MEDS: guaiFENesin LIQ* 100 MG/5 ML UDC PO SCH ×4 (07:47→21:30)
[2018-02-28] MEDS: Lisinopril TAB* 5 MG PO SCH (07:48)
[2018-02-28] MEDS: Torsemide TAB* 20 MG PO SCH (07:49)
[2018-02-28] MEDS: Carvedilol TAB* 6.25 MG PO SCH ×2 (07:50→21:30)
[2018-02-28] MEDS: Ferrous Sulfate TAB* 325 MG PO SCH (07:50)
[2018-02-28] MEDS: Cyanocobalamin TAB* 500 MCG PO SCH ×2 (07:50→21:30)
[2018-02-28] MEDS: Aspirin 81 mg CHEW TAB* 81 MG TAB.CHEW PO SCH (07:51)
[2018-02-28] MEDS: Ascorbic Acid TAB* 500 MG PO SCH (07:51)
[2018-02-28] MEDS: Atorvastatin* 20 MG TAB PO SCH (07:51)
[2018-02-28] MEDS: PARoxetine HCL TAB* 10 MG PO SCH (07:51)
[2018-02-28] MEDS: Omeprazole CAP (NF) 20 MG CAP.DR PO SCH (07:51)
[2018-02-28] MEDS: Mometasone/Formoter 200/5 MDI INH SCH ×2 (08:50→20:35)
[2018-02-28] MEDS: Insulin ISOPH/REG 70/30 (*) 1 UNITS UNIT SUBCUT SCH ×2 (09:13→19:19)
[2018-02-28] MEDS: Hydroxychloroquine TAB* 200 MG PO SCH (09:23)
--- NOTE | 2018-02-28 11:58 | PN ---
Subjective Date of Service: 02/28/18 Interval History: Paulaeint feels better than yesterday but still states that her mood is lousy- and wants to leave hospital and get better soon to get her mood better. Objective Active Medications: Acetaminophen (Tylenol Tab*) 650 mg PO Q6H PRN PRN Reason: PAIN Last Admin: 02/19/18 11:35 Dose: 650 mg Albuterol (Ventolin 2.5 Mg/3 Ml Neb.Rivka*) 2.5 mg INH QID PRN PRN Reason: SOB/WHEEZING Last Admin: 02/26/18 20:40 Dose: 2.5 mg Albuterol (Ventolin Hfa Inhaler*) 2 puff INH Q6H PRN PRN Reason: SHORTNESS OF BREATH Last Admin: 02/19/18 19:38 Dose: 2 puff Albuterol (Ventolin 2.5 Mg/3 Ml Neb.Rivka*) 2.5 mg INH [id number] AWAKE PRN PRN Reason: SOB/WHEEZING Last Admin: 02/28/18 03:43 Dose: 2.5 mg Ascorbic Acid (Vitamin C Tab*) 500 mg PO DAILY [facility] Last Admin: 02/28/18 07:51 Dose: 500 mg Aspirin (Aspirin 81 Mg Chew Tab*) 81 mg PO DAILY [facility] Last Admin: 02/28/18 07:51 Dose: 81 mg Atorvastatin Calcium (Lipitor*) 20 mg PO DAILY [facility] Last Admin: 02/28/18 07:51 Dose: 20 mg Bisacodyl (Dulcolax Supp*) 10 mg [place] DAILY PRN PRN Reason: CONSTIPATION Carvedilol (Coreg Tab*) 12.5 mg PO BID [facility] Last Admin: 02/28/18 07:50 Dose: 12.5 mg Cyanocobalamin (Vitamin B12 Tab*) 500 mcg PO BID [facility] Last Admin: 02/28/18 07:50 Dose: 500 mcg Dextrose (D50w Syringe 50 Ml*) 12.5 gm IV PUSH .FOR FS < 60 - SS PRN PRN Reason: FS < 60 Diphenoxylate HCl/Atropine (Lomotil Tab*) 1 tab PO DAILY PRN PRN Reason: DIARRHEA Last Admin: 02/27/18 09:24 Dose: 1 tab Ferrous Sulfate (Ferrous Sulfate Tab*) 325 mg PO DAILY [facility] Last Admin: 02/28/18 07:50 Dose: 325 mg Guaifenesin (Robitussin*) 10 ml PO QID [facility] Last Admin: 02/28/18 07:47 Dose: 10 ml Heparin Sodium (Porcine) (Heparin Vial(*)) 5,000 units SUBCUT Q8HR [facility] Last Admin: 02/28/18 05:42 Dose: 5,000 units Hydroxychloroquine Sulfate (Plaquenil Tab*) 400 mg PO DAILY [facility] Last Admin: 02/28/18 09:23 Dose: 400 mg Insulin Human Isoph/Insulin Regular (Humulin 70/30 (*)) 5 units SUBCUT 1700 [facility] Last Admin: 02/27/18 18:11 Dose: 5 units Insulin Human Isoph/Insulin Regular (Humulin 70/30 (*)) 6 units SUBCUT 0800 [facility] Insulin Human Lispro (Humalog*) 0 units SUBCUT ACHS [facility]; Protocol Last Admin: 02/28/18 07:33 Dose: Not Given Levothyroxine Sodium (Synthroid Tab*) 25 mcg PO DAILY@0600 [facility] Last Admin: 02/28/18 05:42 Dose: 25 mcg Lisinopril (Prinivil Tab*) 2.5 mg PO DAILY [facility] Last Admin: 02/28/18 07:48 Dose: 2.5 mg Magnesium Hydroxide (Milk Of Magnesia Liq*) 30 ml PO Q4H PRN PRN Reason: CONSTIPATION Last Admin: 02/22/18 15:01 Dose: 30 ml Melatonin (Melatonin) 3 mg PO BEDTIME PRN PRN Reason: INSOMNIA Last Admin: 02/27/18 20:57 Dose: 3 mg Mometasone Furoate/Formoterol Fumar (Dulera 200/5 Mdi*) 2 puff INH BID [facility] Last Admin: 02/28/18 08:50 Dose: 2 puff Nitroglycerin (Nitroglycerin Tab 0.4 Mg*) 0.4 mg SL Q5M PRN PRN Reason: ANGINA Omeprazole (Prilosec Cap*) 20 mg PO DAILY@0730 [facility] Last Admin: 02/28/18 07:51 Dose: 20 mg Paroxetine HCl (Paxil Tab*) 10 mg PO DAILY [facility] Last Admin: 02/28/18 07:51 Dose: 10 mg Polyethylene Glycol/Electrolytes (Miralax*) 17 gm PO DAILY PRN PRN Reason: CONSTIPATION Last Admin: 02/22/18 15:03 Dose: 17 gm Sodium Chloride (Sodium Chloride 0.65% Nasal [place]*) 1 spray BOTH NARES Q4H PRN PRN Reason: CONGESTION Last Admin: 02/23/18 10:50 Dose: 1 spray Torsemide (Demadex*) 20 mg PO DAILY [facility] Last Admin: 02/28/18 07:49 Dose: 20 mg Vital Signs - 8 hr 02/28/18 08:52 Pulse Rate 60 Respiratory 16 Rate O2 Sat by Pulse 98 Oximetry Oxygen Devices in Use Now: None, Nasal Cannula Appearance: Elderly female sitting on chair, in no distress. Eyes: PERRLA Ears/Nose/Mouth/Throat: Mucous Membranes Moist Respiratory: - - mild bibasilar crackles. Cardiovascular: RRR Abdominal: NL Sounds; No Tenderness; No Distention Extremities: - - 1+ pitting edema bilateral lower extremities. Neurological: Alert and Oriented x 3 Result Diagrams: 02/28/18 06:26 02/27/18 05:47 Microbiology and Other Data: Microbiology 02/20/18 05:45 Nasal Screen MRSA (PCR) - Final Nasal Mrsa Not Detected 02/18/18 18:03 Aerobic Blood Culture - Preliminary Blood Venous No Growth Day 1 Anaerobic Blood Culture - Preliminary No Growth Day 1 02/18/18 18:10 Aerobic Blood Culture - Preliminary Blood Venous No Growth Day 1 Anaerobic Blood Culture - Preliminary No Growth Day 1 Assess/Plan/Problems-Billing Assessment: 78 y/o with history of TAVR, CKD, hypergammaglobulinemia, PH, TR and recent admission for COPD exacerbation/pneumonia admitted on 02/18 with shortness of breath and found to be volume overloaded- has been diuresed - Patient Problems (1) Acute systolic (congestive) heart failure Current Visit: Yes Status: Acute Code(s): I50.21 - ACUTE SYSTOLIC ( CONGESTIVE) HEART FAILURE SNOMED Code(s): 370721714 Comment: etiology unclear--will need an ischemic work up eventually; seen dr shredder operator- Dr. Lowry. diuresing well continue BB, WAYLON inhibitor has a pacer and may need an AICD for primary prevention but will need repeat TTE (2) Depressed Current Visit: Yes Status: Acute Code(s): F32.9 - MAJOR DEPRESSIVE DISORDER , SINGLE EPISODE, UNSPECIFIED SNOMED Code(s): 43923530 (3) CHF exacerbation Current Visit: Yes Status: Acute Code(s): I50.9 - HEART FAILURE, UNSPECIFIED SNOMED Code(s): 12179169 Comment: Acute on chronic systolic CHF. Continue torsemide 20 mg daily. Continue lisinopril, carvedilol. Pt has not been weighing herself at home, does keep a low salt diet. Currently on room air. will monitor Oxygenation (4) CKD (chronic kidney disease) Current Visit: Yes Status: Acute Code(s): N18.9 - CHRONIC KIDNEY DISEASE, UNSPECIFIED SNOMED Code(s): 120093357 (5) Diabetes Current Visit: Yes Status: Acute Code(s): E11.9 - TYPE 2 DIABETES MELLITUS WITHOUT COMPLICATIONS SNOMED Code(s): 55538149 Comment: Blood sugar running low, will decrease the 70/30 for AM to 7 units and c/w 5 units at PM (6) Anemia Current Visit: No Status: Acute Priority: High Onset Date: 06/28/14 Code (s): D64.9 - ANEMIA, UNSPECIFIED SNOMED Code(s): 060076989 Comment: -Pt has chronic anemia; Will continue to monitor. -Continue ferrous sulfate (7) DVT prophylaxis Current Visit: No Status: Acute Code(s): NUM5295 - SNOMED Code(s): 993891943 Comment: -SCD in place (8) Afib Current Visit: No Status: Chronic Code(s): I48.91 - UNSPECIFIED ATRIAL FIBRILLATION SNOMED Code(s): 37007604 Comment: Paced on tele. No anticoagulation secondary to peptic ulcer disease and chronic anemia. Continue coreg. (9) Aortic stenosis Current Visit: No Status: Chronic Priority: Low Code(s): I35.0 - NONRHEUMATIC AORTIC (VALVE) STENOSIS SNOMED Code(s): 65324130 Comment: s/p TAVR in 2016. Status and Disposition: Discharge planing to subacute rehab.
--- NOTE | 2018-02-28 17:47 | PN ---
Hospitalist Progress Note Date of Service: 02/28/18 Nurse called because of nose bleeding, pressure was applied but continues to bleed, tampons were placed bilaterally- soaked through, new set of tampons were placed. discussed case with ENT recreation program coordinator- advised nasal packing and spraying phenylephrine.- discussed this with the nursing staff. will monitor advised for humidified air. patient reports history of nasal bleeding, which had required cauterization in the past. will d/c heparin subQ for dvt ppx, and give SCD instead
[2018-02-28] MEDS ORDERED: ALPRAZolam TAB* 0.25 MG PO ONE (18:01)
[2018-02-28] MEDS ORDERED: Phenylephrine 1% NASAL* 15 ML BOT BOTH NARES ONE (18:20)
[2018-02-28] MEDS: Melatonin 3 MG TAB PO PRN (21:30)
[2018-03-01] MEDS: Levothyroxine TAB* 25 MCG TAB PO SCH (05:46)
[2018-03-01] MEDS: Mometasone/Formoter 200/5 MDI INH SCH ×2 (07:19→20:01)
[2018-03-01] MEDS: Albuterol 2.5 MG/3 ML NEB.SOL* (0.083%) INH PRN ×3 (07:19→20:01)
[2018-03-01 07:47] LABS: ABS Basophils 0 10^3/ul (0-0.2); ABS Eosinophils 0 10^3/ul (0-0.6); ABS Lymphocytes 0.6 10^3/ul (1.0-4.8); ABS Monocytes 0.4 10^3/ul (0-0.8); ABS Neutrophils 2.3 10^3/ul (1.5-7.7); ABS Nucleated RBC 0 10^3/ul; Eosinophil % 0.3 %; Hematocrit 25 % (35-47); Lymphocyte % 18.1 %; Mean Corpuscular HGB Conc 32 g/dl (31-36); Mean Corpuscular Hemoglobin 30 pg (27-31); Mean Corpuscular Volume 93 fL (80-97); Mean Platelet Volume 9.9 fL (7.4-10.4); Nucleated Red Blood Cells % 0; Platelet Count 107 10^3/ul (150-450); Red Blood Count 2.67 10^6/ul (4.00-5.40); Red Cell Distribution Width 18 % (10.5-15); White Blood Count 3.3 10^3/ul (3.5-10.8)
[2018-03-01 08:03] LABS: BUN/Creatinine Ratio 28.5 (8-20); EGFR Non-African American 42.1 (>60); Potassium 4.4 mmol/L (3.5-5.0)
[2018-03-01 08:05] LABS: Calcium 6.4 mg/dL (8.6-10.3)
[2018-03-01] MEDS ORDERED: Furosemide IV* 10 MG/ML 2 ML VIAL (20 MG) IV ONE (08:09)
[2018-03-01] MEDS ORDERED: Calcium Gluconate INJ* 1 GM in NS 0.9% 50 ML* 50 ML IVPB ONE (08:11)
--- NOTE | 2018-03-01 08:21 | PN ---
Subjective Date of Service: 03/01/18 Interval History: Yesterday jessica had nose bleeding- resolved for now. Today morning patient reports feeling tired and as if she has no energy. nurse reports patient has been anxious. Objective Active Medications: Acetaminophen (Tylenol Tab*) 650 mg PO Q6H PRN PRN Reason: PAIN Last Admin: 02/19/18 11:35 Dose: 650 mg Albuterol (Ventolin 2.5 Mg/3 Ml Neb.Rivka*) 2.5 mg INH QID PRN PRN Reason: SOB/WHEEZING Last Admin: 03/01/18 07:19 Dose: 2.5 mg Albuterol (Ventolin Hfa Inhaler*) 2 puff INH Q6H PRN PRN Reason: SHORTNESS OF BREATH Last Admin: 02/19/18 19:38 Dose: 2 puff Albuterol (Ventolin 2.5 Mg/3 Ml Neb.Rivka*) 2.5 mg INH [id number] AWAKE PRN PRN Reason: SOB/WHEEZING Last Admin: 02/28/18 03:43 Dose: 2.5 mg Alprazolam (Xanax Tab*) 0.5 mg PO BID PRN PRN Reason: ANXIETY Ascorbic Acid (Vitamin C Tab*) 500 mg PO DAILY [facility] Last Admin: 02/28/18 07:51 Dose: 500 mg Aspirin (Aspirin 81 Mg Chew Tab*) 81 mg PO DAILY [facility] Last Admin: 02/28/18 07:51 Dose: 81 mg Atorvastatin Calcium (Lipitor*) 20 mg PO DAILY [facility] Last Admin: 02/28/18 07:51 Dose: 20 mg Bisacodyl (Dulcolax Supp*) 10 mg [place] DAILY PRN PRN Reason: CONSTIPATION Carvedilol (Coreg Tab*) 12.5 mg PO BID [facility] Last Admin: 02/28/18 21:30 Dose: 12.5 mg Cyanocobalamin (Vitamin B12 Tab*) 500 mcg PO BID [facility] Last Admin: 02/28/18 21:30 Dose: 500 mcg Dextrose (D50w Syringe 50 Ml*) 12.5 gm IV PUSH .FOR FS < 60 - SS PRN PRN Reason: FS < 60 Diphenoxylate HCl/Atropine (Lomotil Tab*) 1 tab PO DAILY PRN PRN Reason: DIARRHEA Last Admin: 02/27/18 09:24 Dose: 1 tab Ferrous Sulfate (Ferrous Sulfate Tab*) 325 mg PO DAILY [facility] Last Admin: 02/28/18 07:50 Dose: 325 mg Furosemide (Lasix Iv*) 20 mg IV ONCE ONE Stop: 03/01/18 08:10 Guaifenesin (Robitussin*) 10 ml PO QID [facility] Last Admin: 02/28/18 21:30 Dose: 10 ml Hydroxychloroquine Sulfate (Plaquenil Tab*) 400 mg PO DAILY [facility] Last Admin: 02/28/18 09:23 Dose: 400 mg Calcium Gluconate 1 gm/ Sodium (Chloride) 60 mls @ 60 mls/hr IVPB ONCE ONE Stop: 03/01/18 09:10 Insulin Human Isoph/Insulin Regular (Humulin 70/30 (*)) 5 units SUBCUT 1700 [facility] Last Admin: 02/28/18 19:19 Dose: 5 units Insulin Human Isoph/Insulin Regular (Humulin 70/30 (*)) 6 units SUBCUT 0800 [facility] Insulin Human Lispro (Humalog*) 0 units SUBCUT ACHS [facility]; Protocol Last Admin: 02/28/18 22:06 Dose: 2 units Levothyroxine Sodium (Synthroid Tab*) 25 mcg PO DAILY@0600 [facility] Last Admin: 03/01/18 05:46 Dose: 25 mcg Lisinopril (Prinivil Tab*) 2.5 mg PO DAILY [facility] Last Admin: 02/28/18 07:48 Dose: 2.5 mg Magnesium Hydroxide (Milk Of Magnesia Liq*) 30 ml PO Q4H PRN PRN Reason: CONSTIPATION Last Admin: 02/22/18 15:01 Dose: 30 ml Melatonin (Melatonin) 3 mg PO BEDTIME PRN PRN Reason: INSOMNIA Last Admin: 02/28/18 21:30 Dose: 3 mg Mometasone Furoate/Formoterol Fumar (Dulera 200/5 Mdi*) 2 puff INH BID [facility] Last Admin: 03/01/18 07:19 Dose: 2 puff Nitroglycerin (Nitroglycerin Tab 0.4 Mg*) 0.4 mg SL Q5M PRN PRN Reason: ANGINA Omeprazole (Prilosec Cap*) 20 mg PO DAILY@0730 [facility] Last Admin: 02/28/18 07:51 Dose: 20 mg Paroxetine HCl (Paxil Tab*) 10 mg PO DAILY [facility] Last Admin: 02/28/18 07:51 Dose: 10 mg Polyethylene Glycol/Electrolytes (Miralax*) 17 gm PO DAILY PRN PRN Reason: CONSTIPATION Last Admin: 02/22/18 15:03 Dose: 17 gm Sodium Chloride (Sodium Chloride 0.65% Nasal [place]*) 1 spray BOTH NARES Q4H PRN PRN Reason: CONGESTION Last Admin: 02/23/18 10:50 Dose: 1 spray Torsemide (Demadex*) 20 mg PO DAILY [facility] Last Admin: 02/28/18 07:49 Dose: 20 mg Vital Signs - 8 hr 03/01/18 03/01/18 03/01/18 03:52 07:22 07:48 Temperature 98.2 F Pulse Rate 65 69 Respiratory 20 18 20 Rate Blood Pressure 124/42 (mmHg) O2 Sat by Pulse 95 100 Oximetry 03/01/18 03/01/18 07:50 07:53 Temperature 97.3 F Pulse Rate 67 Respiratory 12 20 Rate Blood Pressure 142/57 (mmHg) O2 Sat by Pulse 100 Oximetry Oxygen Devices in Use Now: None Ears/Nose/Mouth/Throat: Mucous Membranes Moist Respiratory: - - scattered crackles w/ rhonchi Cardiovascular: RRR Abdominal: NL Sounds; No Tenderness; No Distention Neurological: Alert and Oriented x 3 Result Diagrams: 03/01/18 07:20 03/01/18 07:20 Microbiology and Other Data: Microbiology 02/20/18 05:45 Nasal Screen MRSA (PCR) - Final Nasal Mrsa Not Detected 02/18/18 18:03 Aerobic Blood Culture - Preliminary Blood Venous No Growth Day 1 Anaerobic Blood Culture - Preliminary No Growth Day 1 02/18/18 18:10 Aerobic Blood Culture - Preliminary Blood Venous No Growth Day 1 Anaerobic Blood Culture - Preliminary No Growth Day 1 Assess/Plan/Problems-Billing Assessment: 78 y/o with history of TAVR, CKD, hypergammaglobulinemia, PH, TR and recent admission for COPD exacerbation/pneumonia admitted on 02/18 with shortness of breath and found to be volume overloaded- has been diuresed - Patient Problems (1) Acute systolic (congestive) heart failure Current Visit: Yes Status: Acute Code(s): I50.21 - ACUTE SYSTOLIC ( CONGESTIVE) HEART FAILURE SNOMED Code(s): 392399452 Comment: etiology unclear--will need an ischemic work up eventually; seen dr linkterritory manager- Dr. Lowry. diuresing well continue BB, WAYLON inhibitor has a pacer and may need an AICD for primary prevention but will need repeat TTE (2) Depressed Current Visit: Yes Status: Acute Code(s): F32.9 - MAJOR DEPRESSIVE DISORDER , SINGLE EPISODE, UNSPECIFIED SNOMED Code(s): 02391439 (3) CHF exacerbation Current Visit: Yes Status: Acute Code(s): I50.9 - HEART FAILURE, UNSPECIFIED SNOMED Code(s): 23273863 Comment: Acute on chronic systolic CHF. will give extra dose of lasix IV today. Continue torsemide 20 mg daily. Continue lisinopril, carvedilol. Pt has not been weighing herself at home, does keep a low salt diet. Currently on room air. will monitor Oxygenation (4) CKD (chronic kidney disease) Current Visit: Yes Status: Acute Code(s): N18.9 - CHRONIC KIDNEY DISEASE, UNSPECIFIED SNOMED Code(s): 751881869 (5) Diabetes Current Visit: Yes Status: Acute Code(s): E11.9 - TYPE 2 DIABETES MELLITUS WITHOUT COMPLICATIONS SNOMED Code(s): 47488065 Comment: Has issues with hypoglycemia during this admission, even required D10 drip. Home insulin regimen has been decreased to now 70/30 for AM to 7 units and 5 units at PM (6) Anemia Current Visit: No Status: Acute Onset Date: 06/28/14 Code(s): D64.9 - ANEMIA, UNSPECIFIED SNOMED Code(s): 768391385 Comment: -Pt has chronic anemia; Will continue to monitor. -Continue ferrous sulfate (7) DVT prophylaxis Current Visit: No Status: Acute Code(s): YOE1911 - SNOMED Code(s): 033195541 Comment: -SCD in place (8) Afib Current Visit: No Status: Chronic Code(s): I48.91 - UNSPECIFIED ATRIAL FIBRILLATION SNOMED Code(s): 83978884 Comment: Paced on tele. No anticoagulation secondary to peptic ulcer disease and chronic anemia. Continue coreg. (9) Aortic stenosis Current Visit: No Status: Chronic Code(s): I35.0 - NONRHEUMATIC AORTIC ( VALVE) STENOSIS SNOMED Code(s): 41860849 Comment: s/p TAVR in 2016. (10) Thrombocytopenia Current Visit: Yes Status: Acute Code(s): D69.6 - THROMBOCYTOPENIA, UNSPECIFIED SNOMED Code(s): 057314707 Comment: will monitor (11) Hypocalcemia Current Visit: Yes Status: Acute Code(s): E83.51 - HYPOCALCEMIA SNOMED Code(s): 4259670 Comment: Repletion ordered Status and Disposition: Discharge planing to subacute rehab when medically stable.
[2018-03-01] MEDS: guaiFENesin LIQ* 100 MG/5 ML UDC PO SCH ×4 (09:39→21:23)
[2018-03-01] MEDS: Lisinopril TAB* 5 MG PO SCH (09:41)
[2018-03-01] MEDS: Torsemide TAB* 20 MG PO SCH (09:41)
[2018-03-01] MEDS: Atorvastatin* 20 MG TAB PO SCH (09:42)
[2018-03-01] MEDS: ALPRAZolam TAB* 0.5 MG PO PRN ×2 (09:42→21:24)
[2018-03-01] MEDS: Hydroxychloroquine TAB* 200 MG PO SCH (09:42)
[2018-03-01] MEDS: Ascorbic Acid TAB* 500 MG PO SCH (09:43)
[2018-03-01] MEDS: Ferrous Sulfate TAB* 325 MG PO SCH (09:43)
[2018-03-01] MEDS: Aspirin 81 mg CHEW TAB* 81 MG TAB.CHEW PO SCH (09:43)
[2018-03-01] MEDS: Carvedilol TAB* 6.25 MG PO SCH ×2 (09:45→21:24)
[2018-03-01] MEDS: Omeprazole CAP (NF) 20 MG CAP.DR PO SCH (09:45)
[2018-03-01] MEDS: Cyanocobalamin TAB* 500 MCG PO SCH ×2 (09:46→21:24)
[2018-03-01] MEDS: Insulin ISOPH/REG 70/30 (*) 1 UNITS UNIT SUBCUT SCH ×2 (09:46→17:41)
[2018-03-01] MEDS: Insulin LISPRO* 1 UNITS UNIT SUBCUT SCH ×4 (09:49→21:26)
[2018-03-01] MEDS: PARoxetine HCL TAB* 10 MG PO SCH (09:50)
[2018-03-01] MEDS: Melatonin 3 MG TAB PO PRN (21:25)
[2018-03-02] MEDS: Levothyroxine TAB* 25 MCG TAB PO SCH (05:25)
[2018-03-02 05:58] LABS: Hematocrit 24 % (35-47); Hemoglobin 7.8 g/dl (12.0-16.0); Mean Corpuscular HGB Conc 33 g/dl (31-36); Mean Corpuscular Hemoglobin 31 pg (27-31); Mean Corpuscular Volume 93 fL (80-97); Mean Platelet Volume 9.4 fL (7.4-10.4); Platelet Count 91 10^3/ul (150-450); Red Blood Count 2.55 10^6/ul (4.00-5.40); Red Cell Distribution Width 18 % (10.5-15); White Blood Count 2.8 10^3/ul (3.5-10.8)
[2018-03-02 06:16] LABS: BUN/Creatinine Ratio 29.4 (8-20); EGFR Non-African American 43.8 (>60); Potassium 4.2 mmol/L (3.5-5.0)
[2018-03-02 06:19] LABS: Calcium 6.2 mg/dL (8.6-10.3)
[2018-03-02] MEDS ORDERED: Calcium Gluconate INJ* 1 GM in NS 0.9% 50 ML* 50 ML IVPB ONE (07:30)
[2018-03-02] MEDS: guaiFENesin LIQ* 100 MG/5 ML UDC PO SCH ×4 (08:15→21:03)
[2018-03-02] MEDS: Insulin ISOPH/REG 70/30 (*) 1 UNITS UNIT SUBCUT SCH ×2 (08:15→16:45)
[2018-03-02] MEDS: Ferrous Sulfate TAB* 325 MG PO SCH (08:16)
[2018-03-02] MEDS: Omeprazole CAP (NF) 20 MG CAP.DR PO SCH (08:16)
[2018-03-02] MEDS: Cyanocobalamin TAB* 500 MCG PO SCH ×2 (08:16→21:04)
[2018-03-02] MEDS: Diphenoxylat/Atrop 2.5-0.025M* 1 TAB PO PRN (08:16)
[2018-03-02] MEDS: Hydroxychloroquine TAB* 200 MG PO SCH (08:16)
[2018-03-02] MEDS: Carvedilol TAB* 6.25 MG PO SCH ×2 (08:16→21:04)
[2018-03-02] MEDS: Atorvastatin* 20 MG TAB PO SCH (08:16)
[2018-03-02] MEDS: Lisinopril TAB* 5 MG PO SCH (08:16)
[2018-03-02] MEDS: Aspirin 81 mg CHEW TAB* 81 MG TAB.CHEW PO SCH (08:16)
[2018-03-02] MEDS: PARoxetine HCL TAB* 10 MG PO SCH (08:16)
[2018-03-02] MEDS: Ascorbic Acid TAB* 500 MG PO SCH (08:16)
[2018-03-02] MEDS: Mometasone/Formoter 200/5 MDI INH SCH ×2 (08:22→20:39)
[2018-03-02] MEDS: Insulin LISPRO* 1 UNITS UNIT SUBCUT SCH ×4 (08:25→21:06)
[2018-03-02] MEDS ORDERED: Furosemide IV* 10 MG/ML VIAL (40 MG) IV ONE (09:43)
--- NOTE | 2018-03-02 09:50 | PN ---
Subjective Date of Service: 03/02/18 Interval History: Patient continues to feel okay with her breathing, gets tired easily. Objective Active Medications: Acetaminophen (Tylenol Tab*) 650 mg PO Q6H PRN PRN Reason: PAIN Last Admin: 02/19/18 11:35 Dose: 650 mg Albuterol (Ventolin 2.5 Mg/3 Ml Neb.Rivka*) 2.5 mg INH QID PRN PRN Reason: SOB/WHEEZING Last Admin: 03/01/18 20:01 Dose: 2.5 mg Albuterol (Ventolin Hfa Inhaler*) 2 puff INH Q6H PRN PRN Reason: SHORTNESS OF BREATH Last Admin: 02/19/18 19:38 Dose: 2 puff Albuterol (Ventolin 2.5 Mg/3 Ml Neb.Rivka*) 2.5 mg INH [id number] AWAKE PRN PRN Reason: SOB/WHEEZING Last Admin: 02/28/18 03:43 Dose: 2.5 mg Alprazolam (Xanax Tab*) 0.5 mg PO BID PRN PRN Reason: ANXIETY Last Admin: 03/01/18 21:24 Dose: 0.5 mg Ascorbic Acid (Vitamin C Tab*) 500 mg PO DAILY [facility] Last Admin: 03/02/18 08:16 Dose: 500 mg Aspirin (Aspirin 81 Mg Chew Tab*) 81 mg PO DAILY [facility] Last Admin: 03/02/18 08:16 Dose: 81 mg Atorvastatin Calcium (Lipitor*) 20 mg PO DAILY [facility] Last Admin: 03/02/18 08:16 Dose: 20 mg Bisacodyl (Dulcolax Supp*) 10 mg [place] DAILY PRN PRN Reason: CONSTIPATION Calcium Carbonate (Tums*) 500 mg PO BID [facility] Carvedilol (Coreg Tab*) 12.5 mg PO BID [facility] Last Admin: 03/02/18 08:16 Dose: 12.5 mg Cyanocobalamin (Vitamin B12 Tab*) 500 mcg PO BID [facility] Last Admin: 03/02/18 08:16 Dose: 500 mcg Dextrose (D50w Syringe 50 Ml*) 12.5 gm IV PUSH .FOR FS < 60 - SS PRN PRN Reason: FS < 60 Diphenoxylate HCl/Atropine (Lomotil Tab*) 1 tab PO DAILY PRN PRN Reason: DIARRHEA Last Admin: 03/02/18 08:16 Dose: 1 tab Ferrous Sulfate (Ferrous Sulfate Tab*) 325 mg PO DAILY [facility] Last Admin: 03/02/18 08:16 Dose: 325 mg Furosemide (Lasix Iv*) 40 mg IV ONCE ONE Stop: 03/02/18 09:44 Guaifenesin (Robitussin*) 10 ml PO QID [facility] Last Admin: 03/02/18 08:15 Dose: 10 ml Hydroxychloroquine Sulfate (Plaquenil Tab*) 400 mg PO DAILY [facility] Last Admin: 03/02/18 08:16 Dose: 400 mg Insulin Human Isoph/Insulin Regular (Humulin 70/30 (*)) 5 units SUBCUT 1700 [facility] Last Admin: 03/01/18 17:41 Dose: 5 units Insulin Human Isoph/Insulin Regular (Humulin 70/30 (*)) 6 units SUBCUT 0800 [facility] Last Admin: 03/02/18 08:15 Dose: 6 units Insulin Human Lispro (Humalog*) 0 units SUBCUT ACHS [facility]; Protocol Last Admin: 03/02/18 08:25 Dose: Not Given Levothyroxine Sodium (Synthroid Tab*) 25 mcg PO DAILY@0600 [facility] Last Admin: 03/02/18 05:25 Dose: 25 mcg Lisinopril (Prinivil Tab*) 2.5 mg PO DAILY [facility] Last Admin: 03/02/18 08:16 Dose: 2.5 mg Magnesium Hydroxide (Milk Of Magnesia Liq*) 30 ml PO Q4H PRN PRN Reason: CONSTIPATION Last Admin: 02/22/18 15:01 Dose: 30 ml Melatonin (Melatonin) 3 mg PO BEDTIME PRN PRN Reason: INSOMNIA Last Admin: 03/01/18 21:25 Dose: 3 mg Mometasone Furoate/Formoterol Fumar (Dulera 200/5 Mdi*) 2 puff INH BID [facility] Last Admin: 03/02/18 08:22 Dose: 2 puff Nitroglycerin (Nitroglycerin Tab 0.4 Mg*) 0.4 mg SL Q5M PRN PRN Reason: ANGINA Omeprazole (Prilosec Cap*) 20 mg PO DAILY@0730 [facility] Last Admin: 03/02/18 08:16 Dose: 20 mg Paroxetine HCl (Paxil Tab*) 10 mg PO DAILY [facility] Last Admin: 03/02/18 08:16 Dose: 10 mg Polyethylene Glycol/Electrolytes (Miralax*) 17 gm PO DAILY PRN PRN Reason: CONSTIPATION Last Admin: 02/22/18 15:03 Dose: 17 gm Sodium Chloride (Sodium Chloride 0.65% Nasal [place]*) 1 spray BOTH NARES Q4H PRN PRN Reason: CONGESTION Last Admin: 02/23/18 10:50 Dose: 1 spray Torsemide (Demadex*) 20 mg PO DAILY [facility] Last Admin: 03/01/18 09:41 Dose: 20 mg Vital Signs - 8 hr 03/02/18 03/02/18 03/02/18 04:06 07:14 08:00 Temperature 98.2 F 97.3 F Pulse Rate 61 66 Respiratory 20 18 18 Rate Blood Pressure 138/40 131/50 (mmHg) O2 Sat by Pulse 100 99 Oximetry 03/02/18 03/02/18 08:16 08:25 Temperature Pulse Rate 64 Respiratory 18 18 Rate Blood Pressure (mmHg) O2 Sat by Pulse 95 Oximetry Oxygen Devices in Use Now: None Ears/Nose/Mouth/Throat: Mucous Membranes Moist Respiratory: - - Rhonchi with crackles scattered Cardiovascular: RRR, - - 2+ edema bilateral lower extremities. Neurological: Alert and Oriented x 3 Result Diagrams: 03/02/18 05:38 03/02/18 05:38 Microbiology and Other Data: Microbiology 02/20/18 05:45 Nasal Screen MRSA (PCR) - Final Nasal Mrsa Not Detected 02/18/18 18:03 Aerobic Blood Culture - Preliminary Blood Venous No Growth Day 1 Anaerobic Blood Culture - Preliminary No Growth Day 1 02/18/18 18:10 Aerobic Blood Culture - Preliminary Blood Venous No Growth Day 1 Anaerobic Blood Culture - Preliminary No Growth Day 1 Assess/Plan/Problems-Billing Assessment: 78 y/o with history of TAVR, CKD, hypergammaglobulinemia, PH, TR and recent admission for COPD exacerbation/pneumonia admitted on 02/18 with shortness of breath and found to be volume overloaded- has been diuresed - Patient Problems (1) Acute systolic (congestive) heart failure Current Visit: Yes Status: Acute Code(s): I50.21 - ACUTE SYSTOLIC ( CONGESTIVE) HEART FAILURE SNOMED Code(s): 374842971 Comment: etiology unclear--will need an ischemic work up eventually; seen dr allergist immunologist- Dr. Lowry. diuresing well continue BB, WAYLON inhibitor, continue torsemide. will give 40mg IV lasix now. has a pacer and may need an AICD for primary prevention but will need repeat TTE (2) Depressed Current Visit: Yes Status: Acute Code(s): F32.9 - MAJOR DEPRESSIVE DISORDER , SINGLE EPISODE, UNSPECIFIED SNOMED Code(s): 73601697 (3) CHF exacerbation Current Visit: Yes Status: Acute Code(s): I50.9 - HEART FAILURE, UNSPECIFIED SNOMED Code(s): 54260015 Comment: Acute on chronic systolic CHF. will give extra dose of lasix IV today. Continue torsemide 20 mg daily. Continue lisinopril, carvedilol. Pt has not been weighing herself at home, does keep a low salt diet. Currently on room air. will monitor Oxygenation (4) CKD (chronic kidney disease) Current Visit: Yes Status: Acute Code(s): N18.9 - CHRONIC KIDNEY DISEASE, UNSPECIFIED SNOMED Code(s): 740913111 (5) Diabetes Current Visit: Yes Status: Acute Code(s): E11.9 - TYPE 2 DIABETES MELLITUS WITHOUT COMPLICATIONS SNOMED Code(s): 76049171 Comment: Has issues with hypoglycemia during this admission, even required D10 drip. Home insulin regimen has been decreased to now 70/30 for AM to 7 units and 5 units at PM (6) Anemia Current Visit: No Status: Acute Onset Date: 06/28/14 Code(s): D64.9 - ANEMIA, UNSPECIFIED SNOMED Code(s): 330365649 Comment: -Pt has chronic anemia; Will continue to monitor. -Continue ferrous sulfate (7) DVT prophylaxis Current Visit: No Status: Acute Code(s): QMA5600 - SNOMED Code(s): 361774055 Comment: -SCD in place (8) Afib Current Visit: No Status: Chronic Code(s): I48.91 - UNSPECIFIED ATRIAL FIBRILLATION SNOMED Code(s): 10954524 Comment: Paced on tele. No anticoagulation secondary to peptic ulcer disease and chronic anemia. Continue coreg. (9) Aortic stenosis Current Visit: No Status: Chronic Code(s): I35.0 - NONRHEUMATIC AORTIC ( VALVE) STENOSIS SNOMED Code(s): 11616997 Comment: s/p TAVR in 2016. (10) Thrombocytopenia Current Visit: Yes Status: Acute Code(s): D69.6 - THROMBOCYTOPENIA, UNSPECIFIED SNOMED Code(s): 784860807 Comment: will monitor (11) Hypocalcemia Current Visit: Yes Status: Acute Code(s): E83.51 - HYPOCALCEMIA SNOMED Code(s): 5262015 Comment: will start BID calcium carbonate. Status and Disposition: Discharge planing to subacute rehab when medically stable.
[2018-03-02] MEDS: Torsemide TAB* 20 MG PO SCH (09:53)
[2018-03-02] MEDS: Albuterol 2.5 MG/3 ML NEB.SOL* (0.083%) INH PRN ×2 (16:32→20:39)
[2018-03-02] MEDS: ALPRAZolam TAB* 0.5 MG PO PRN (21:03)
[2018-03-02] MEDS: Calcium Carbonate CHEW TAB* 500 MG (TUMS) PO SCH (21:03)
[2018-03-02] MEDS: Melatonin 3 MG TAB PO PRN (21:04)
[2018-03-03] MEDS: Levothyroxine TAB* 25 MCG TAB PO SCH (05:35)
[2018-03-03 06:18] LABS: ABS Basophils 0 10^3/ul (0-0.2); ABS Eosinophils 0 10^3/ul (0-0.6); ABS Lymphocytes 0.8 10^3/ul (1.0-4.8); ABS Monocytes 0.4 10^3/ul (0-0.8); ABS Neutrophils 2.6 10^3/ul (1.5-7.7); ABS Nucleated RBC 0 10^3/ul; Hematocrit 27 % (35-47); Hemoglobin 8.8 g/dl (12.0-16.0); Lymphocyte % 21.1 %; Mean Corpuscular HGB Conc 33 g/dl (31-36); Mean Corpuscular Hemoglobin 31 pg (27-31); Mean Corpuscular Volume 93 fL (80-97); Mean Platelet Volume 9.7 fL (7.4-10.4); Nucleated Red Blood Cells % 0; Platelet Count 116 10^3/ul (150-450); Red Blood Count 2.87 10^6/ul (4.00-5.40); Red Cell Distribution Width 17 % (10.5-15); White Blood Count 3.8 10^3/ul (3.5-10.8)
[2018-03-03 06:35] LABS: BUN/Creatinine Ratio 26.7 (8-20); EGFR Non-African American 45.1 (>60); Potassium 4.4 mmol/L (3.5-5.0)
[2018-03-03] MEDS: Insulin LISPRO* 1 UNITS UNIT SUBCUT SCH ×2 (07:31→13:45)
[2018-03-03] MEDS: Mometasone/Formoter 200/5 MDI INH SCH (07:59)
[2018-03-03] MEDS: Albuterol 2.5 MG/3 ML NEB.SOL* (0.083%) INH PRN ×2 (08:02→13:43)
[2018-03-03] MEDS: guaiFENesin LIQ* 100 MG/5 ML UDC PO SCH ×2 (08:27→13:43)
[2018-03-03] MEDS: Calcium Carbonate CHEW TAB* 500 MG (TUMS) PO SCH (08:28)
[2018-03-03] MEDS: Ascorbic Acid TAB* 500 MG PO SCH (08:28)
[2018-03-03] MEDS: Hydroxychloroquine TAB* 200 MG PO SCH (08:28)
[2018-03-03] MEDS: Lisinopril TAB* 5 MG PO SCH (08:28)
[2018-03-03 08:29] VITALS: BP 139/47
[2018-03-03] MEDS: Atorvastatin* 20 MG TAB PO SCH (08:29)
[2018-03-03] MEDS: PARoxetine HCL TAB* 10 MG PO SCH (08:29)
[2018-03-03] MEDS: Aspirin 81 mg CHEW TAB* 81 MG TAB.CHEW PO SCH (08:30)
[2018-03-03] MEDS: Carvedilol TAB* 6.25 MG PO SCH (08:30)
[2018-03-03] MEDS: Ferrous Sulfate TAB* 325 MG PO SCH (08:30)
[2018-03-03] MEDS: Torsemide TAB* 20 MG PO SCH (08:30)
[2018-03-03] MEDS: Cyanocobalamin TAB* 500 MCG PO SCH (08:30)
[2018-03-03] MEDS: Diphenoxylat/Atrop 2.5-0.025M* 1 TAB PO PRN (08:30)
[2018-03-03] MEDS: Omeprazole CAP (NF) 20 MG CAP.DR PO SCH (08:30)
[2018-03-03] MEDS: Insulin ISOPH/REG 70/30 (*) 1 UNITS UNIT SUBCUT SCH (08:33)
--- NOTE | 2018-03-03 12:14 | PN ---
Subjective Date of Service: 03/03/18 Interval History: Doing well, no chest pain, no shortness of breath. Objective Active Medications: Acetaminophen (Tylenol Tab*) 650 mg PO Q6H PRN PRN Reason: PAIN Last Admin: 02/19/18 11:35 Dose: 650 mg Albuterol (Ventolin 2.5 Mg/3 Ml Neb.Rivka*) 2.5 mg INH QID PRN PRN Reason: SOB/WHEEZING Last Admin: 03/03/18 08:02 Dose: 2.5 mg Albuterol (Ventolin Hfa Inhaler*) 2 puff INH Q6H PRN PRN Reason: SHORTNESS OF BREATH Last Admin: 02/19/18 19:38 Dose: 2 puff Albuterol (Ventolin 2.5 Mg/3 Ml Neb.Rivka*) 2.5 mg INH [id number] AWAKE PRN PRN Reason: SOB/WHEEZING Last Admin: 02/28/18 03:43 Dose: 2.5 mg Alprazolam (Xanax Tab*) 0.5 mg PO BID PRN PRN Reason: ANXIETY Last Admin: 03/02/18 21:03 Dose: 0.5 mg Ascorbic Acid (Vitamin C Tab*) 500 mg PO DAILY [facility] Last Admin: 03/03/18 08:28 Dose: 500 mg Aspirin (Aspirin 81 Mg Chew Tab*) 81 mg PO DAILY [facility] Last Admin: 03/03/18 08:30 Dose: 81 mg Atorvastatin Calcium (Lipitor*) 20 mg PO DAILY [facility] Last Admin: 03/03/18 08:29 Dose: 20 mg Bisacodyl (Dulcolax Supp*) 10 mg [place] DAILY PRN PRN Reason: CONSTIPATION Calcium Carbonate (Tums*) 500 mg PO BID [facility] Last Admin: 03/03/18 08:28 Dose: 500 mg Carvedilol (Coreg Tab*) 12.5 mg PO BID [facility] Last Admin: 03/03/18 08:30 Dose: 12.5 mg Cyanocobalamin (Vitamin B12 Tab*) 500 mcg PO BID [facility] Last Admin: 03/03/18 08:30 Dose: 500 mcg Dextrose (D50w Syringe 50 Ml*) 12.5 gm IV PUSH .FOR FS < 60 - SS PRN PRN Reason: FS < 60 Diphenoxylate HCl/Atropine (Lomotil Tab*) 1 tab PO DAILY PRN PRN Reason: DIARRHEA Last Admin: 03/03/18 08:30 Dose: 1 tab Ferrous Sulfate (Ferrous Sulfate Tab*) 325 mg PO DAILY [facility] Last Admin: 03/03/18 08:30 Dose: 325 mg Guaifenesin (Robitussin*) 10 ml PO QID [facility] Last Admin: 03/03/18 08:27 Dose: 10 ml Hydroxychloroquine Sulfate (Plaquenil Tab*) 400 mg PO DAILY [facility] Last Admin: 03/03/18 08:28 Dose: 400 mg Insulin Human Isoph/Insulin Regular (Humulin 70/30 (*)) 5 units SUBCUT 1700 [facility] Last Admin: 03/02/18 16:45 Dose: 5 units Insulin Human Isoph/Insulin Regular (Humulin 70/30 (*)) 6 units SUBCUT 0800 [facility] Last Admin: 03/03/18 08:33 Dose: 6 units Insulin Human Lispro (Humalog*) 0 units SUBCUT ACHS [facility]; Protocol Last Admin: 03/03/18 07:31 Dose: Not Given Levothyroxine Sodium (Synthroid Tab*) 25 mcg PO DAILY@0600 [facility] Last Admin: 03/03/18 05:35 Dose: 25 mcg Lisinopril (Prinivil Tab*) 2.5 mg PO DAILY [facility] Last Admin: 03/03/18 08:28 Dose: 2.5 mg Magnesium Hydroxide (Milk Of Magnesia Liq*) 30 ml PO Q4H PRN PRN Reason: CONSTIPATION Last Admin: 02/22/18 15:01 Dose: 30 ml Melatonin (Melatonin) 3 mg PO BEDTIME PRN PRN Reason: INSOMNIA Last Admin: 03/02/18 21:04 Dose: 3 mg Mometasone Furoate/Formoterol Fumar (Dulera 200/5 Mdi*) 2 puff INH BID [facility] Last Admin: 03/03/18 07:59 Dose: 2 puff Nitroglycerin (Nitroglycerin Tab 0.4 Mg*) 0.4 mg SL Q5M PRN PRN Reason: ANGINA Pantoprazole Sodium (Protonix Tab *) 40 mg PO DAILY [facility] Paroxetine HCl (Paxil Tab*) 10 mg PO DAILY [facility] Last Admin: 03/03/18 08:29 Dose: 10 mg Polyethylene Glycol/Electrolytes (Miralax*) 17 gm PO DAILY PRN PRN Reason: CONSTIPATION Last Admin: 02/22/18 15:03 Dose: 17 gm Sodium Chloride (Sodium Chloride 0.65% Nasal [place]*) 1 spray BOTH NARES Q4H PRN PRN Reason: CONGESTION Last Admin: 02/23/18 10:50 Dose: 1 spray Torsemide (Demadex*) 20 mg PO DAILY [facility] Last Admin: 03/03/18 08:30 Dose: 20 mg Vital Signs - 8 hr 03/03/18 03/03/18 03/03/18 07:36 08:00 08:04 Temperature 98.6 F Pulse Rate 60 62 Respiratory 17 18 16 Rate Blood Pressure 139/47 (mmHg) O2 Sat by Pulse 100 96 Oximetry 03/03/18 08:30 Temperature Pulse Rate Respiratory 16 Rate Blood Pressure (mmHg) O2 Sat by Pulse Oximetry Oxygen Devices in Use Now: None Appearance: Sitting on chair, not in distress, more interactive today. Eyes: PERRLA Respiratory: Clear to Auscultation Cardiovascular: RRR Skin: No Rash or Ulcers Neurological: Alert and Oriented x 3 Result Diagrams: 03/03/18 06:12 03/03/18 06:12 Microbiology and Other Data: Microbiology 02/20/18 05:45 Nasal Screen MRSA (PCR) - Final Nasal Mrsa Not Detected 02/18/18 18:03 Aerobic Blood Culture - Preliminary Blood Venous No Growth Day 1 Anaerobic Blood Culture - Preliminary No Growth Day 1 02/18/18 18:10 Aerobic Blood Culture - Preliminary Blood Venous No Growth Day 1 Anaerobic Blood Culture - Preliminary No Growth Day 1 Assess/Plan/Problems-Billing Assessment: 78 y/o with history of TAVR, CKD, hypergammaglobulinemia, PH, TR and recent admission for COPD exacerbation/pneumonia admitted on 02/18 with shortness of breath and found to be volume overloaded- has been diuresed - Patient Problems (1) Acute systolic (congestive) heart failure Current Visit: Yes Status: Acute Code(s): I50.21 - ACUTE SYSTOLIC ( CONGESTIVE) HEART FAILURE SNOMED Code(s): 947378946 Comment: etiology unclear--will need an ischemic work up eventually; seen dr diesel mechanic apprentice- Dr. Lowry. diuresing well continue BB, WAYLON inhibitor, continue torsemide. will give 40mg IV lasix now. has a pacer and may need an AICD for primary prevention but will need repeat TTE (2) Depressed Current Visit: Yes Status: Acute Code(s): F32.9 - MAJOR DEPRESSIVE DISORDER , SINGLE EPISODE, UNSPECIFIED SNOMED Code(s): 00219026 (3) CHF exacerbation Current Visit: Yes Status: Acute Code(s): I50.9 - HEART FAILURE, UNSPECIFIED SNOMED Code(s): 76840543 Comment: Acute on chronic systolic CHF. Continue torsemide 20 mg daily. Continue lisinopril, carvedilol. Pt has not been weighing herself at home, does keep a low salt diet. Currently on room air. will monitor Oxygenation (4) CKD (chronic kidney disease) Current Visit: Yes Status: Acute Code(s): N18.9 - CHRONIC KIDNEY DISEASE, UNSPECIFIED SNOMED Code(s): 319758741 (5) Diabetes Current Visit: Yes Status: Acute Code(s): E11.9 - TYPE 2 DIABETES MELLITUS WITHOUT COMPLICATIONS SNOMED Code(s): 03305136 Comment: Has issues with hypoglycemia during this admission, even required D10 drip. Home insulin regimen has been decreased to now 70/30 for AM to 7 units and 5 units at PM (6) Anemia Current Visit: No Status: Acute Onset Date: 06/28/14 Code(s): D64.9 - ANEMIA, UNSPECIFIED SNOMED Code(s): 450892355 Comment: -Pt has chronic anemia; Will continue to monitor. -Continue ferrous sulfate (7) DVT prophylaxis Current Visit: No Status: Acute Code(s): GMF5252 - SNOMED Code(s): 151213871 Comment: -SCD in place (8) Afib Current Visit: No Status: Chronic Code(s): I48.91 - UNSPECIFIED ATRIAL FIBRILLATION SNOMED Code(s): 10159413 Comment: Paced on tele. No anticoagulation secondary to peptic ulcer disease and chronic anemia. Continue coreg. (9) Aortic stenosis Current Visit: No Status: Chronic Code(s): I35.0 - NONRHEUMATIC AORTIC ( VALVE) STENOSIS SNOMED Code(s): 83904801 Comment: s/p TAVR in 2016. (10) Thrombocytopenia Current Visit: Yes Status: Acute Code(s): D69.6 - THROMBOCYTOPENIA, UNSPECIFIED SNOMED Code(s): 631735005 Comment: will monitor (11) Hypocalcemia Current Visit: Yes Status: Acute Code(s): E83.51 - HYPOCALCEMIA SNOMED Code(s): 1327217 Comment: will start BID calcium carbonate. Status and Disposition: Discharge planing to [facility]..
--- NOTE | 2018-03-03 13:35 | DS ---
CC: Vanesa Alexandra NP; Dr. Lea Magana DATE OF ADMISSION: 02/18/2018. DATE OF DISCHARGE: 03/03/2018. PRIMARY CARE PROVIDER: Vanesa Alexandra NP. REASON FOR ADMISSION: Shortness of breath. HOSPITAL COURSE: This is a 78-year-old female with a past medical history of pneumonia, COPD exacerbation, transaortic valve replacement, coronary artery disease, polyclonal hypergammaglobulinemia, chronic anemia, and coronary artery disease who was admitted to the hospital because of shortness of breath. She was found to have acute on chronic congestive heart failure. She was given Lasix in the emergency room and an echocardiogram was ordered. We monitored her in's and out's and the patient throughout the course received several doses of IV Lasix. The patient's Amlodipine was held. Other home medications were continued. The patient's echocardiogram was done which showed an ejection fraction of 30 to 35 percent with global hypokinesis as well as severe pulmonary hypertension. A spinning lathe operator automatic was also consulted regarding this, Dr. Andrew Lowry. His recommendations were to continue diuresis, continue with Coreg and Lisinopril. The patient will need follow-up with Cardiology in four to six weeks post discharge for consideration of AICD and a repeat echocardiogram. Hospital course was complicated by the patient having a nose bleed for which nasal packing was done a subsequently the nasal bled resolved. Also hospital course was complicated by hypoglycemia. The patient's insulin regimen was adjusted accordingly. Additionally, the patient was having depression for which we tried the patient on Paroxetine. DISCHARGE MEDICATIONS: 1. Ferrous Sulfate 325 mg daily. 2. Levothyroxine 25 mcg daily. 3. Simvastatin 40 mg daily. 4. Cyanocobalamin 500 mg twice a day. 5. Nitroglycerin 0.4 mg tablet every 5 minutes as needed for chest pain. 6. Carvedilol 12.5 mg twice a day. 7. Hydroxychloroquine 400 mg daily. 8. Albuterol inhaler nebulizing solution 2.5 mg inhaled 4 times a day as needed. 9. Lisinopril 2.5 mg daily. 10. Calcium Carbonate 1,000 mg b.i.d. 11. Guaifenesin 600 mg daily. 12. Calcium D3/magnesium/zinc one tablet twice daily. 13. Lomotil as needed. 14. Torsemide 20 mg daily. 15. Ascorbic acid 500 mg daily. 16. Tofacitinib 5 mg b.i.d. 17. Ipratropium spray. 18. Protein supplement ProMod 946 ml daily. 19. Insulin Humulin 70/30 six units in the morning, five units at bedtime. 20. Melatonin 200 mg daily. 21. Paroxetine 10 mg daily. 22. Polyethylene Glycol 17 gm daily. 23. Nasal spray saline spray daily. CONDITION ON DISCHARGE: Stable. DISCHARGE INSTRUCTIONS: 1. Patient to have a cardiac fluid restricted diet. 2. Follow-up with V[facility]a Alexandra [facility]. 3. The patient needs to follow-up with Dr. Andrew Lowry in four to six weeks. DISCHARGE DIAGNOSIS 1. Acute on Chronic systolic congestive heart failure 2. Depression 3. Coronary artery disease 4. Diabetes type II 5. Rheumatoid arthritis 6. Unspecified hypothyroidism. [id number]/CPS #: [id number] MTDD
[2018-03-04] MEDS ORDERED: Pantoprazole TAB * 40 MG TAB PO SCH (09:00)
== END 2018-03-03 15:26 | DRG 291 ==
LOC: ED 15:24 → MEDTELE 19:36 → ICU 02-20 05:14 → MEDTELE 02-21 16:50
PROVIDERS: ADMIT Internal Medicine; ATTEND Internal Medicine
PROC: 2Y41X5Z Packing of Nasal Region using Packing Material (ICD-10-PCS; principal; 2018-02-18)
DX: I13.0 Hypertensive heart and chronic kidney disease with heart failure and stage 1 through stage 4 chronic kidney disease, or unspecified chronic kidney disease (principal); I50.23 Acute on chronic systolic (congestive) heart failure; J44.9 Chronic obstructive pulmonary disease, unspecified; D89.0 Polyclonal hypergammaglobulinemia; I25.10 Atherosclerotic heart disease of native coronary artery without angina pectoris; D64.9 Anemia, unspecified; I27.20 Pulmonary hypertension, unspecified; R04.0 Epistaxis; F32.9 Major depressive disorder, single episode, unspecified; E11.649 Type 2 diabetes mellitus with hypoglycemia without coma; M06.9 Rheumatoid arthritis, unspecified; E03.9 Hypothyroidism, unspecified; I48.2 Chronic atrial fibrillation; E11.22 Type 2 diabetes mellitus with diabetic chronic kidney disease; N18.3 Chronic kidney disease, stage 3 (moderate); I35.0 Nonrheumatic aortic (valve) stenosis; K21.9 Gastro-esophageal reflux disease without esophagitis; E78.00 Pure hypercholesterolemia, unspecified; D69.6 Thrombocytopenia, unspecified; E83.51 Hypocalcemia; I48.0 Paroxysmal atrial fibrillation; I42.9 Cardiomyopathy, unspecified; E11.319 Type 2 diabetes mellitus with unspecified diabetic retinopathy without macular edema; I08.1 Rheumatic disorders of both mitral and tricuspid valves; Z95.2 Presence of prosthetic heart valve; Z87.01 Personal history of pneumonia (recurrent); Z79.4 Long term (current) use of insulin; Z88.5 Allergy status to narcotic agent; Z88.1 Allergy status to other antibiotic agents; Z88.2 Allergy status to sulfonamides; Z82.49 Family history of ischemic heart disease and other diseases of the circulatory system; Z98.84 Bariatric surgery status; Z87.891 Personal history of nicotine dependence; Z95.810 Presence of automatic (implantable) cardiac defibrillator; Z86.718 Personal history of other venous thrombosis and embolism; Z85.3 Personal history of malignant neoplasm of breast; Z90.710 Acquired absence of both cervix and uterus; Z90.89 Acquired absence of other organs; Z98.42 Cataract extraction status, left eye; Z98.41 Cataract extraction status, right eye; Z90.49 Acquired absence of other specified parts of digestive tract; Z83.3 Family history of diabetes mellitus
CPT/HCPCS: 36415; 71045; 80048; 80053; 81003; 81015; 82330; 82533; 82947; 83036; 83605; 83735; 83880; 84484; 85014; 85018; 85025; 85027; 85610; 86140; 87040; 87086; 87493; 87641; 93005; 93306; 94640; 99284; A9270-GY; G8978-GP-CK; G8979-GP-CI; G8987-GO-CL; G8988-GO-CJ; J0456; J0610; J0696; J1610; J1644; J1940

== ENCOUNTER 2018-03-11 10:31 | Inpatient (IN) | payer MEDICARE, MEDICAID ==
--- NOTE | 2018-03-11 10:43 | ED ---
Influenza-Like Illness - HPI Summary HPI Summary: A 78 y/o female presents to the ED c/o generalized illness for the past couple days. In the ED room, the patient has a pulse of 65 BPM, O2 saturation of 100%, and blood pressure of 149/64. As per triage, "generalized illness for a couple of day, weakness and congested cough". According to the patient, she has been feeling very ill for the past few days. [facility] CXR was done where it was found that the patient has a pneumonia pleural effusion. Patient stated that she woke up at 0200 this morning and could not go to bed till 0530 due to the illness. Patient stated that she has swollen legs and SOB, however, denies any chest pain, burning with urination, pain with urination, blood in stool/urine and headache. She stated that her knees are in pain but that his due to her arthritis. Patient uses a walker to ambulate, last time was yesterday. Patient further noted that she has been eating fine, but sometimes she does not eat. Patient had no breakfast. Patient bruises easily. - History of Current Complaint Chief Complaint: EDGeneral Hx Obtained From: Patient Onset/Duration: Sudden Onset, Lasting Days, Still Present Associated Signs & Symptoms: Cough, Nasal Congestion - Allergy/Home Medications Allergies/Adverse Reactions: Allergies Allergy/AdvReac Type Severity Reaction Status Date / Time codeine Allergy Rash Verified 02/18/18 15:37 levofloxacin [From Levaquin] Allergy Agitation Verified 02/18/18 15:37 Sulfa (Sulfonamide Allergy Hives Verified 02/18/18 15:37 Antibiotics) PMH/Surg Hx/FS Hx/Imm Hx Endocrine/Hematology History: Reports: Hx Anticoagulant Therapy, Hx Blood Transfusions, Hx Diabetes, Hx Thyroid Disease, Hx Anemia, 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 Denies: Hx Systemic Lupus Erythematosus Cardiovascular History: Reports: Hx Angina, Hx Auto Implanted Cardiovert Defib, Hx Congestive Heart Failure, Hx Coronary Artery Disease, Hx Deep Vein Thrombosis - Man-made clot caused by nurse 40+ years ago, Hx Hypercholesterolemia, Hx Hypertension, Hx Pacemaker/ICD, Hx Valvular Heart Disease, Other Cardiovascular Problems/Disorders - Aortic valve replacement, bradycardia, cardiac catherization Denies: Hx Aneurysm, Hx Angioplasty, Hx Cardiac Arrest, Hx Cardiomegaly, Hx Congenital Heart Disease, Hx Embolism, Hx Myocardial Infarction, Hx Rheumatic Fever, Hx Syncope Respiratory History: Reports: Hx Asthma, Hx Chronic Obstructive Pulmonary Disease (COPD), Hx Pneumonia Denies: Hx Lung Cancer, Hx Sleep Apnea GI History: Reports: Hx Ulcer - Peptic ulcer disease, Other GI Disorders - gastric bypass Denies: Hx Gastroesophageal Reflux Disease History: Reports: Other Problems/Disorders - UTIs, CKD Denies: Hx Kidney Stones, Hx Renal Disease Musculoskeletal History: Reports: Hx Arthritis, Hx Rheumatoid Arthritis, Hx Back Problems, Hx Osteoporosis Denies: Hx Gout, Hx Orthopedic Injury Sensory History: Reports: Hx Contacts or Glasses, Hx Vision Problem Denies: Hx Cataracts, Hx Eye Injury, Hx Eye Prosthesis, Hx Deafness, Hx Hearing Aid, Hx Hearing Problem, Other Sensory Impairments Opthamlomology History: Reports: Hx Contacts or Glasses, Hx Vision Problem Denies: Hx Cataracts, Hx Eye Injury, Hx Eye Prosthesis, Other Sensory Impairments Neurological History: Reports: Hx Headaches Denies: Hx Dementia, Hx Developmental Delay, Hx Migraine, Hx Nerve Disease, Hx Seizures, Hx Spinal Cord Injury, Hx Transient Ischemic Attacks (TIA), Other Neuro Impairments/Disorders Psychiatric History: Reports: Hx Depression - Cancer History Cancer Type, Location and Year: Two sisters had breast cancer Hx Chemotherapy: No Hx Radiation Therapy: No - Surgical History Surgery Procedure, Year, and Place: Hysterectomy. Appendectomy. Tonsillectomy. Bilateral Knee Arthroscopy. Diabetic Retinopathy-eye surgery. GASTRIC BYPASS. Bilateral Cataract removal. Sinus Surgery. Florentin-en-y gastric bypass, 2007. Cholecystecomy 2009. Carpal Tunnel Surgery. Aortic Valve replacement, 2016, [facility] Anesthesia Reactions: No - Immunization History Date of Tetanus Vaccine: utd Date of Influenza Vaccine: utd Infectious Disease History: No Infectious Disease History: Reports: Hx Clostridium Difficile - History Denies: Hx Hepatitis, Hx Human Immunodeficiency Virus (HIV), Hx of Known/ Suspected MRSA, Hx Shingles, Hx Tuberculosis, Hx Known/Suspected VRE, Hx Known/ Suspected VRSA, History Other Infectious Disease, Traveled Outside the [place] in Last 30 Days - Family History Known Family History: Positive: Cardiac Disease, Diabetes, Other - Breast Cancer - Social History Alcohol Use: None Hx Substance Use: No Substance Use Type: Reports: None Hx Tobacco Use: Yes - quit > 20 yrs ago Smoking Status (MU): Former Smoker Type: Cigarettes Have You Smoked in the Last Year: No Review of Systems Positive: Fatigue, Other - POSITIVE: GENERALIZED ILLNESS. Negative: Fever, Chills Positive: Other - NEGATIVE: DOUBLE VISION. Negative: Blurred Vision Positive: Other - POSITIVE: NASAL CONGESTION. Negative: Sore Throat, Ear Ache Negative: Chest Pain Positive: Shortness Of Breath, Cough Positive: Other - NEGATIVE: BLOOD IN STOOL, CONSTIPATION. Negative: Abdominal Pain Negative: burning, dysuria, hematuria, pain Positive: Edema - LEG EDEMA, Other - NEGATIVE: NECK PAIN, BACK PAIN Positive: Bruising - BRUISES EASILY. Negative: Rash Negative: Headache All Other Systems Reviewed And Are Negative: No Physical Exam - Summary Physical Exam Summary: Appearance: Alert, conversive, nontoxic appearing Skin: Warm, dry, no mottling, no rashes, no contusions, ecchymosis diffusely throughout UE. HEENT: EOMI, PERRL, moist mucous membranes Neck: No masses on the neck, supple Respiratory: Crackles on the left, breath sounds present, no rales, no rhonchi, no wheezes Cardiovascular: RRR, pulses are symmetrical in both lower and upper extremities Abdomen: Soft, non-tender Bowel Sounds: Present Musculoskeletal: No CVA tenderness, no obvious deformity, moving all extremities in a grossly normal manner, 2+ pedal edema (much more on the left) Neurological: A&Ox3, CN II-XII Intact, moving all extremities symmetrically. Generalized weakness. Psychiatric: Normal affect and mood Triage Information Reviewed: Yes Vital Signs On Initial Exam: Initial Vitals Temp Pulse Resp BP Pulse Ox 97.4 F 72 20 154/70 100 03/11/18 10:33 03/11/18 10:33 03/11/18 10:33 03/11/18 10:33 03/11/18 10:33 Vital Signs Reviewed: Yes Diagnostics - Vital Signs Vital Signs Temp Pulse Resp BP Pulse Ox 03/11/18 10:33 97.4 F 72 20 154/70 100 - Laboratory Result Diagrams: 03/11/18 11:20 03/11/18 11:20 Lab Statement: Any lab studies that have been ordered have been reviewed, and results considered in the medical decision making process. - Radiology CXR Radiology Interpretation Completed By: Radiologist Summary of Radiographic Findings: LEFT LOWER LOBE CONSOLIDATION. ED PHYSICIAN REVIEWED THIS RADIOLOGY REPORT. - Ultrasound No standard instances Ultrasound Interpretation Completed By: Radiologist - VENOUS DOPPLER STUDY: LIMITED EVALUATION OF THE CALF, NO EVIDENCE FOR ACUTE DEEP VENOUS THROMBOSIS. ED PHYSICIAN REVIEWED THIS RADIOLOGY REPORT. Re-Evaluation - Re-Evaluation First Eval Re-Evaluation Time: 12:25 Change: Unchanged Comment: DISCUSSED RESULTS AND ADMISSION WITH PATIENT. Second Eval Re-Evaluation Time: 12:34 Change: Unchanged Comment: PATIENT'S NURSE NOTED SWELLING IN LEFT LEG. AN US WILL BE DONE AND PATIENT WILL BE ADMITTED. Third Eval Re-Evaluation Time: 00:00 Change: Unchanged Comment: - Flu Symptom Course/Dx - Course Course Of Treatment: A 78 y/o female presents to the ED c/o generalized illness for the past couple days. Physical examination findings were significant for generalized weakness, 2+ pedal edema (much more on the left), crackles on the left, and ecchymosis diffusely throughout UE. A CXR revealed left lower lobe consolidation. A Venous Doppler Study revealed limited evaluation of the calf, no evidence for acute deep venous thrombosis. Hematology and Chemistry screens were done. No significant laboratory abnormalities were found. In the ED course , the patient received no medications. Patient care was discussed with hospitalist, Dr. Flori Mccormick, who accepts patient for admission. Patient will be admitted with a diagnosis of left lower lobe pneumonia and generalized weakness. Patient is agreeable with this plan. - Diagnoses Provider Diagnoses: Left lower lobe pneumonia, Generalized weakness - Physician Notifications Discussed Care Of Patient With: Paul Rios Time Discussed With Above Provider: 12:08 Instructed by Provider To: Other - COURTESY CALL. DR. RIOS WAS UNABLE TO SPEAK AT THAT MOMENT, BUT WILL CALL BACK. 12:35 - DR. FLORI MCCORMICK ACCEPTS PATIENT FOR ADMISSION. Discharge - Sign-Out/Discharge Documenting (check all that apply): Patient Departure - ADMIT, Sign-Out Patient - JB Signing out patient TO: Flori Mccormick Receiving patient FROM: Audra Gimenez - Discharge Plan Condition: Stable Disposition: ADMITTED TO [facility] - Billing Disposition and Condition Condition: STABLE Disposition: Admitted to [facility] - Attestation Statements Document Initiated by Scribe: Yes Documenting Scribe: Андрей Goldman Provider For Whom Scribe is Documenting (Include Credential): MD Mayra Samuel Attestation: IАндрей, scribed for Audra Gimenez MD on 03/11/18 at 2205. Scribe Documentation Reviewed: Yes Provider Attestation: The documentation as recorded by the scribeАндрей accurately reflects the service I personally performed and the decisions made by me, Audra Gimenez MD Status of Scribe Document: Viewed
[2018-03-11 11:41] LABS: ABS Basophils 0 10^3/ul (0-0.2); ABS Eosinophils 0 10^3/ul (0-0.6); ABS Lymphocytes 0.5 10^3/ul (1.0-4.8); ABS Monocytes 0.4 10^3/ul (0-0.8); ABS Neutrophils 5.3 10^3/ul (1.5-7.7); ABS Nucleated RBC 0 10^3/ul; Eosinophil % 0.7 %; Hematocrit 25 % (35-47); Hemoglobin 8.4 g/dl (12.0-16.0); Lymphocyte % 7.7 %; Mean Corpuscular HGB Conc 33 g/dl (31-36); Mean Corpuscular Hemoglobin 31 pg (27-31); Mean Corpuscular Volume 92 fL (80-97); Mean Platelet Volume 9.8 fL (7.4-10.4); Nucleated Red Blood Cells % 0; Platelet Count 143 10^3/ul (150-450); Red Blood Count 2.73 10^6/ul (4.00-5.40); Red Cell Distribution Width 17 % (10.5-15); White Blood Count 6.2 10^3/ul (3.5-10.8)
[2018-03-11 12:01] LABS: Albumin 2.6 g/dL (3.2-5.2); Albumin/Globulin Ratio 0.7 (1-3); BUN/Creatinine Ratio 33.6 (8-20); Calcium 7.2 mg/dL (8.6-10.3); EGFR African American 43.9 (>60); EGFR Non-African American 36.3 (>60); Globulin 3.7 g/dL (2-4); Magnesium 1.8 mg/dL (1.9-2.7); Potassium 4.5 mmol/L (3.5-5.0); Total Bilirubin 0.3 mg/dL (0.2-1.0); Total Protein 6.3 g/dL (6.4-8.9)
[2018-03-11] MEDS ORDERED: Piperacillin/Tazobac ADVAN(*) 3.375 GM in NS 0.9% 100 ML* 100 ML IVPB ONE (12:43)
[2018-03-11 12:58] LABS: TSH (Thyroid Stimulating Horm) 4.5 mcIU/mL (0.34-5.60)
[2018-03-11] MEDS ORDERED: Polyethylene Glycol 3350* 17 GM PACKET PO PRN (13:36)
[2018-03-11] MEDS ORDERED: Nitroglycerin TAB 0.4 MG* 0.4 MG TAB SL PRN (13:36)
--- NOTE | 2018-03-11 13:45 | ADMNOTE ---
Subjective Date of Service: 03/11/18 Interval History: ADMISSION HISTORY AND PHYSICAL EXAM: Allergies Allergy/AdvReac Type Severity Reaction Status Date / Time codeine Allergy Rash Verified 02/18/18 15:37 levofloxacin [From Levaquin] Allergy Agitation Verified 02/18/18 15:37 Sulfa (Sulfonamide Allergy Hives Verified 02/18/18 15:37 Antibiotics) Home Medications Medication Instructions Recorded Confirmed Type Ferrous Sulfate TAB* 325 mg PO DAILY 07/16/14 03/11/18 History Levothyroxine TAB* [Synthroid 25 25 mcg PO DAILY 12/28/14 03/11/18 History MCG TAB*] Simvastatin (NF) [Zocor (NF)] 40 mg PO DAILY 12/28/14 03/11/18 History Cyanocobalamin TAB* [Vitamin B12 500 mcg PO QPM 03/25/15 03/11/18 History TAB*] Carvedilol TAB* [Coreg TAB*] 12.5 mg PO BID #0 05/03/15 03/11/18 History Nitroglycerin TAB 0.4 MG* 0.4 mg SL Q5M PRN 05/03/15 03/11/18 History Albuterol 2.5MG/3ML (0.083%)* 2.5 mg INH Q4HR PRN 10/31/15 03/11/18 History [Ventolin 2.5 MG/3 ML NEB.SHERRI*] Calcium Carbonate [Tums Ultra] 1,000 mg PO BID 10/31/15 03/11/18 History Lisinopril TAB* [Prinivil TAB 5 2.5 mg PO DAILY 10/31/15 03/11/18 History MG*] guaiFENesin ER TAB [Mucinex*] 600 mg PO DAILY 12/05/15 03/11/18 History Diphenoxylat/Atrop 2.5-0.025M* 1 tab PO DAILY PRN #15 tab MDD 1 11/12/16 Rx [Lomotil TAB*] tab Albuterol HFA INHALER* [Ventolin 2 puff INH Q6H PRN 12/28/17 03/11/18 History HFA Inhaler*] Ipratropium Br (Nf)0.03% Nasal 0.06 % BOTH NARES BID 12/28/17 03/11/18 History [Ipratropium [place]] Tofacitinib Citrate [Xeljanz] 5 mg PO BID 12/28/17 03/11/18 History Aspirin 81 mg CHEW TAB* 81 mg PO DAILY 02/11/18 03/11/18 History Pantoprazole TAB * [Protonix TAB 40 mg PO DAILY 02/18/18 03/11/18 History (NF)] ALPRAZolam TAB* [Xanax TAB*] 0.5 mg PO BID PRN tab 03/03/18 03/11/18 Rx Melatonin 3 mg PO BEDTIME PRN tab 03/03/18 03/11/18 Rx Mometasone/Formoter 200/5 MDI* 2 puff INH BID mdi 03/03/18 03/11/18 Rx [Dulera 200/5 MDI*] PARoxetine HCL TAB* [Paxil TAB*] 10 mg PO DAILY tab 03/03/18 03/11/18 Rx Polyethylene Glycol 3350* 17 gm PO DAILY PRN packet 03/03/18 03/11/18 Rx [Miralax*] Saline NASAL SPRAY 0.65%* [Sodium 1 spray BOTH NARES Q4H PRN btl 03/03/1803/11 Rx Chloride 0.65% Nasal [place]*] Torsemide TAB* [Demadex 20 MG*] 20 mg PO DAILY tab 03/03/18 03/11/18 Rx HPI: The patient had malaise, increased cough for 1 -2 days. White sputum, increased amount. Family History: Findings - Father in his 70's mother in her 80's, both of heart disease Social History: Findings - Resident of [facility]. Quit smoking 40 yrs ago, no alcohol abuse. Son Daryl is her SDM. Past Medical History: Findings - TAVR, polyclonal gammopathy, CAD, COPD, RA, PUD , hypothyroid, HTN, PPM, gastric bypass, DM with retinopathy. Review of Systems - Measurements Intake and Output: Intake and Output Last 24 Hours 03/09/18 03/10/18 03/11/18 03/12/18 06:59 06:59 06:59 06:59 Weight 132 lb - Review of Systems Constitutional Symptoms: Negative: Weight Gain, Weight Loss, Weakness, Fatigue, Fever, Night Sweats, Unexplained Falls, Other Dermatology: Positive: Normal HEENT: Positive: Normal Eyes: Positive: Normal Thyroid: Positive: Primary Hypothyroidism Pulmonary: Positive: Cough, Sputum Gastroenterology: Positive: Normal Genital - Urinary: Positive: Normal Musculoskeletal: Positive: Joint Pain Endocrinology: Positive: Thyroid Problems Hematologic/Lymphatic: Positive: Anemia Neurology: Positive: Normal Psychiatry: Positive: Normal Allergic/Immunologic: Negative: Hx Anaphylaxis, Hx Angioedema, Hx Environmental, Hx Seasonal, Athsma, Hx HIV, Immunocompromise, Swollen Glands LymphNodes, Other Objective Active Medications: Albuterol (Ventolin 2.5 Mg/3 Ml Neb.Sherri*) 2.5 mg INH Q4HR PRN PRN Reason: SOB/WHEEZING Albuterol (Ventolin Hfa Inhaler*) 2 puff INH Q6H PRN PRN Reason: SHORTNESS OF BREATH Alprazolam (Xanax Tab*) 0.5 mg PO BID PRN PRN Reason: ANXIETY Aspirin (Aspirin 81 Mg Chew Tab*) 81 mg PO DAILY [facility] Carvedilol (Coreg Tab*) 12.5 mg PO BID [facility] Cyanocobalamin (Vitamin B12 Tab*) 500 mcg PO QPM [facility] Enoxaparin Sodium (Lovenox(*)) 30 mg SUBCUT Q24H [facility] Ferrous Sulfate (Ferrous Sulfate Tab*) 325 mg PO DAILY [facility] Guaifenesin (Mucinex*) 600 mg PO BID [facility] Piperacillin Sod/Tazobactam (Sod 3.375 gm/ Sodium Chloride) 100 mls @ 25 mls/ hr IVPB Q8H [facility] Ipratropium [place] (Ipratropium [place]) ml BOTH NARES BID [facility] Levothyroxine Sodium (Synthroid Tab*) 25 mcg PO DAILY [facility] Lisinopril (Prinivil Tab*) 2.5 mg PO DAILY [facility] Mometasone Furoate/Formoterol Fumar (Dulera 200/5 Mdi*) 2 puff INH BID [facility] Nitroglycerin (Nitroglycerin Tab 0.4 Mg*) 0.4 mg SL Q5M PRN PRN Reason: ANGINA Pantoprazole Sodium (Protonix Tab (Nf)) 40 mg PO DAILY [facility] Paroxetine HCl (Paxil Tab*) 10 mg PO DAILY [facility] Polyethylene Glycol/Electrolytes (Miralax*) 17 gm PO DAILY PRN PRN Reason: CONSTIPATION Simvastatin (Zocor (Nf)) 40 mg PO DAILY [facility] Sodium Chloride (Sodium Chloride 0.65% Nasal [place]*) 1 spray BOTH NARES Q4H PRN PRN Reason: CONGESTION Torsemide (Demadex*) 20 mg PO DAILY [facility] Vital Signs - 8 hr 03/11/18 03/11/18 03/11/18 10:33 10:38 11:00 Temperature 97.4 F Pulse Rate 72 66 67 Respiratory 20 Rate Blood Pressure 154/70 149/64 (mmHg) O2 Sat by Pulse 100 100 100 Oximetry 03/11/18 03/11/18 03/11/18 11:24 11:38 12:00 Temperature Pulse Rate 65 62 67 Respiratory Rate Blood Pressure 157/70 152/69 (mmHg) O2 Sat by Pulse 100 100 100 Oximetry 03/11/18 03/11/18 03/11/18 12:08 12:39 13:00 Temperature Pulse Rate 65 61 60 Respiratory Rate Blood Pressure 160/65 152/60 (mmHg) O2 Sat by Pulse 100 100 100 Oximetry 03/11/18 13:08 Temperature Pulse Rate 61 Respiratory Rate Blood Pressure 150/64 (mmHg) O2 Sat by Pulse 100 Oximetry Oxygen Devices in Use Now: Nasal Cannula Appearance: Alert, sitting up on ED stretcher. In good spirits. Looks comfortable. Occ harsh cough during my visit. Respiratory: Symmetrical Chest Expansion and Respiratory Effort, - - Rhonchi and egophony L base Cardiovascular: NL Sounds; No Murmurs; No JVD, RRR, No Edema, - Extremities: No Clubbing, Cyanosis, - - L calf larger than R calf. Rheumatoid deformities both hands. Skin: No Rash or Ulcers, No Nodules or Sclerosis, - Neurological: Alert and Oriented x 3, NL Sensation Result Diagrams: 03/11/18 11:20 03/11/18 11:20 Assess/Plan/Problems-Billing Assessment: - Patient Problems (1) Pneumonia Current Visit: No Status: Acute Code(s): J18.9 - PNEUMONIA, UNSPECIFIED ORGANISM SNOMED Code(s): 125929115 Comment: Continue pip/nina, increase guaifenesin LA to bid. Consider discharge on oral antibiotic 03/12 if stable. (2) CHF (congestive heart failure) Current Visit: No Status: Acute Code(s): I50.9 - HEART FAILURE, UNSPECIFIED SNOMED Code(s): 16108560 Comment: Compensated. -Continue Carvedilol, lisinopril, torsemide. (3) Diabetes Current Visit: No Status: Acute Code(s): E11.9 - TYPE 2 DIABETES MELLITUS WITHOUT COMPLICATIONS SNOMED Code(s): 07965468 Comment: Has issues with hypoglycemia in past, will try 70/30 5 U at 0800, 1700. FS achs with parameters. (4) Rheumatoid arthritis Current Visit: No Status: Chronic Code(s): M06.9 - RHEUMATOID ARTHRITIS, UNSPECIFIED SNOMED Code(s): 26461440 Comment: Hold Xeljanz until infection resolved. (5) Thrombocytopenia Current Visit: No Status: Acute Code(s): D69.6 - THROMBOCYTOPENIA, UNSPECIFIED SNOMED Code(s): 109793449 Comment: 143K on 03/11. Needs outpt fup. (6) CKD (chronic kidney disease) Current Visit: No Status: Acute Code(s): N18.9 - CHRONIC KIDNEY DISEASE, UNSPECIFIED SNOMED Code(s): 925221727 Comment: Est GFR 36.3 on 03/11/18.
[2018-03-11] MEDS ORDERED: Insulin LISPRO* 1 UNITS UNIT SUBCUT ONE (14:51)
[2018-03-11] MEDS ORDERED: Dextrose 50% Syringe 50 ML* 25 GM/50 ML SYRINGE IV PUSH PRN (14:51)
[2018-03-11] MEDS: Enoxaparin(*) 30 MG/0.3 ML SYR SUBCUT SCH (15:40)
[2018-03-11] MEDS: Albuterol 2.5 MG/3 ML NEB.SOL* (0.083%) INH PRN ×2 (16:00→20:25)
[2018-03-11] MEDS: Cyanocobalamin TAB* 500 MCG PO SCH (18:01)
[2018-03-11] MEDS: Piperacillin/Tazobac ADVAN(*) 3.375 GM in NS 0.9% 100 ML* 100 ML IVPB SCH (18:01)
[2018-03-11] MEDS: Insulin ISOPH/REG 70/30 (*) 1 UNITS UNIT SUBCUT SCH (18:01)
[2018-03-11 18:44] LABS: Influenza A Molecular NEGATIVE (Negative); Influenza B Molecular NEGATIVE (Negative)
[2018-03-11] MEDS: Mometasone/Formoter 200/5 MDI INH SCH (20:19)
[2018-03-11] MEDS: ALPRAZolam TAB* 0.5 MG PO PRN (21:57)
[2018-03-11] MEDS: Carvedilol TAB* 6.25 MG PO SCH (21:57)
[2018-03-11] MEDS: guaiFENesin ER TAB 600 MG PO SCH (21:58)
[2018-03-11] MEDS: Saline NASAL SPRAY 0.65%* BTL BOTH NARES PRN (22:01)
[2018-03-11] MEDS: IPRATROPIUM 0.03% BOTH NARES SCH (22:37)
[2018-03-12] MEDS: Piperacillin/Tazobac ADVAN(*) 3.375 GM in NS 0.9% 100 ML* 100 ML IVPB SCH ×3 (01:50→18:08)
[2018-03-12] MEDS: Carvedilol TAB* 6.25 MG PO SCH ×2 (08:39→21:40)
[2018-03-12] MEDS: Aspirin 81 mg CHEW TAB* 81 MG TAB.CHEW PO SCH (08:39)
[2018-03-12] MEDS: Pantoprazole TAB * 40 MG TAB PO SCH (08:40)
[2018-03-12] MEDS: Torsemide TAB* 20 MG PO SCH (08:40)
[2018-03-12] MEDS: Lisinopril TAB* 5 MG PO SCH (08:40)
[2018-03-12] MEDS: Levothyroxine TAB* 25 MCG TAB PO SCH (08:40)
[2018-03-12] MEDS: Ferrous Sulfate TAB* 325 MG PO SCH (08:40)
[2018-03-12] MEDS: guaiFENesin ER TAB 600 MG PO SCH ×2 (08:40→21:40)
[2018-03-12] MEDS: PARoxetine HCL TAB* 10 MG PO SCH (08:40)
[2018-03-12] MEDS: Atorvastatin* 20 MG TAB PO SCH (08:40)
[2018-03-12] MEDS: Insulin ISOPH/REG 70/30 (*) 1 UNITS UNIT SUBCUT SCH ×2 (08:45→18:08)
[2018-03-12] MEDS: Albuterol 2.5 MG/3 ML NEB.SOL* (0.083%) INH PRN ×2 (10:44→19:33)
[2018-03-12] MEDS: Mometasone/Formoter 200/5 MDI INH SCH ×2 (10:44→19:33)
[2018-03-12] MEDS: IPRATROPIUM 0.03% BOTH NARES SCH ×2 (11:01→21:41)
[2018-03-12] MEDS: Enoxaparin(*) 30 MG/0.3 ML SYR SUBCUT SCH (14:01)
[2018-03-12] MEDS ORDERED: Insulin REGULAR(*) 1 UNITS UNIT SUBCUT ONE (15:15)
[2018-03-12] MEDS: Cyanocobalamin TAB* 500 MCG PO SCH (18:08)
--- NOTE | 2018-03-12 20:04 | PN ---
Subjective Date of Service: 03/12/18 Interval History: Reports some improvement in breathing c/o some diarrhea but only had 2 BM so far loose Family History: Findings - Father in his 70's mother in her 80's, both of heart disease Social History: Findings - Resident of [facility]. Quit smoking 40 yrs ago, no alcohol abuse. Son Daryl is her SDM. Past Medical History: Findings - TAVR, polyclonal gammopathy, CAD, COPD, RA, PUD , hypothyroid, HTN, PPM, gastric bypass, DM with retinopathy. Objective Active Medications: Albuterol (Ventolin 2.5 Mg/3 Ml Neb.Rivka*) 2.5 mg INH Q4HR PRN PRN Reason: SOB/WHEEZING Last Admin: 03/12/18 19:33 Dose: 2.5 mg Albuterol (Ventolin Hfa Inhaler*) 2 puff INH Q6H PRN PRN Reason: SHORTNESS OF BREATH Alprazolam (Xanax Tab*) 0.5 mg PO BID PRN PRN Reason: ANXIETY Last Admin: 03/11/18 21:57 Dose: 0.5 mg Aspirin (Aspirin 81 Mg Chew Tab*) 81 mg PO DAILY [facility] Last Admin: 03/12/18 08:39 Dose: 81 mg Atorvastatin Calcium (Lipitor*) 20 mg PO DAILY [facility] Last Admin: 03/12/18 08:40 Dose: 20 mg Carvedilol (Coreg Tab*) 12.5 mg PO BID [facility] Last Admin: 03/12/18 08:39 Dose: 12.5 mg Cyanocobalamin (Vitamin B12 Tab*) 500 mcg PO QPM [facility] Last Admin: 03/12/18 18:08 Dose: 500 mcg Dextrose (D50w Syringe 50 Ml*) 12.5 gm IV PUSH .FOR FS < 60 - SS PRN PRN Reason: FS < 60 Enoxaparin Sodium (Lovenox(*)) 30 mg SUBCUT Q24H [facility] Last Admin: 03/12/18 14:01 Dose: 30 mg Ferrous Sulfate (Ferrous Sulfate Tab*) 325 mg PO DAILY [facility] Last Admin: 03/12/18 08:40 Dose: 325 mg Guaifenesin (Mucinex*) 600 mg PO BID [facility] Last Admin: 03/12/18 08:40 Dose: 600 mg Piperacillin Sod/Tazobactam (Sod 3.375 gm/ Sodium Chloride) 100 mls @ 25 mls/ hr IVPB Q8H [facility] Last Admin: 03/12/18 18:08 Dose: 25 mls/hr Insulin Human Isoph/Insulin Regular (Humulin 70/30 (*)) 5 units SUBCUT 0800, 1700 [facility] Last Admin: 03/12/18 18:08 Dose: 5 units Ipratropium [place] (Ipratropium [place]) 2 spray BOTH NARES BID [facility] Last Admin: 03/12/18 11:01 Dose: Not Given Levothyroxine Sodium (Synthroid Tab*) 25 mcg PO DAILY [facility] Last Admin: 03/12/18 08:40 Dose: 25 mcg Lisinopril (Prinivil Tab*) 2.5 mg PO DAILY [facility] Last Admin: 03/12/18 08:40 Dose: 2.5 mg Melatonin (Melatonin) 3 mg PO BEDTIME PRN; Protocol PRN Reason: SLEEP Mometasone Furoate/Formoterol Fumar (Dulera 200/5 Mdi*) 2 puff INH BID [facility] Last Admin: 03/12/18 19:33 Dose: 2 puff Nitroglycerin (Nitroglycerin Tab 0.4 Mg*) 0.4 mg SL Q5M PRN PRN Reason: ANGINA Pantoprazole Sodium (Protonix Tab (Nf)) 40 mg PO DAILY [facility] Last Admin: 03/12/18 08:40 Dose: 40 mg Paroxetine HCl (Paxil Tab*) 10 mg PO DAILY [facility] Last Admin: 03/12/18 08:40 Dose: 10 mg Polyethylene Glycol/Electrolytes (Miralax*) 17 gm PO DAILY PRN PRN Reason: CONSTIPATION Sodium Chloride (Sodium Chloride 0.65% Nasal [place]*) 1 spray BOTH NARES Q4H PRN PRN Reason: CONGESTION Last Admin: 03/11/18 22:01 Dose: 1 spr Torsemide (Demadex*) 20 mg PO DAILY [facility] Last Admin: 03/12/18 08:40 Dose: 20 mg Vital Signs - 8 hr 03/12/18 03/12/18 03/12/18 16:03 18:43 19:38 Temperature 98.4 F 97.7 F Pulse Rate 82 62 67 Respiratory 18 18 14 Rate Blood Pressure 144/60 126/39 (mmHg) O2 Sat by Pulse 100 100 100 Oximetry Oxygen Devices in Use Now: None Eyes: No Scleral Icterus Neck: NL Appearance and Movements; NL JVP Respiratory: Symmetrical Chest Expansion and Respiratory Effort Cardiovascular: NL Sounds; No Murmurs; No JVD, RRR Abdominal: NL Sounds; No Tenderness; No Distention Extremities: No Edema Skin: No Rash or Ulcers Neurological: Alert and Oriented x 3 Result Diagrams: 03/11/18 11:20 03/11/18 11:20 Microbiology and Other Data: Microbiology 03/11/18 11:50 Aerobic Blood Culture - Preliminary Blood Line No Growth Day 1 Anaerobic Blood Culture - Preliminary No Growth Day 1 03/11/18 11:20 Aerobic Blood Culture - Preliminary Blood Line No Growth Day 1 Anaerobic Blood Culture - Preliminary No Growth Day 1 03/11/18 18:15 Nasal Screen MRSA (PCR) - Final Nasal Mrsa Not Detected 03/11/18 18:15 Influenza Types A,B Antigen - Final Nasal Specimen received for Influenza A/B Molecular testing Assess/Plan/Problems-Billing Assessment: - Patient Problems (1) CKD (chronic kidney disease) Current Visit: No Status: Acute Code(s): N18.9 - CHRONIC KIDNEY DISEASE, UNSPECIFIED SNOMED Code(s): 783624774 (2) CHF (congestive heart failure) Current Visit: No Status: Acute Code(s): I50.9 - HEART FAILURE, UNSPECIFIED SNOMED Code(s): 58865286 Comment: Compensated. -Continue Carvedilol, lisinopril, torsemide. (3) Diabetes Current Visit: No Status: Acute Code(s): E11.9 - TYPE 2 DIABETES MELLITUS WITHOUT COMPLICATIONS SNOMED Code(s): 68467248 Comment: Has issues with hypoglycemia in past, on 5 U at 0800, 1700. FS achs with parameters. High today and needed supplementatl coverage.Will adjust insulin based on numbers (4) Pneumonia Current Visit: No Status: Acute Code(s): J18.9 - PNEUMONIA, UNSPECIFIED ORGANISM SNOMED Code(s): 671240202 Comment: Continue pip/nina, increase guaifenesin LA to bid. Still sob Diarrhea, likely antibiotic associated.Will check C diff
[2018-03-12] MEDS: Melatonin 3 MG TAB PO PRN (21:40)
[2018-03-13] MEDS: Albuterol 2.5 MG/3 ML NEB.SOL* (0.083%) INH PRN ×4 (01:31→19:20)
[2018-03-13] MEDS: Piperacillin/Tazobac ADVAN(*) 3.375 GM in NS 0.9% 100 ML* 100 ML IVPB SCH ×3 (01:37→19:21)
[2018-03-13 07:07] LABS: ABS Basophils 0 10^3/ul (0-0.2); ABS Eosinophils 0.1 10^3/ul (0-0.6); ABS Lymphocytes 0.5 10^3/ul (1.0-4.8); ABS Monocytes 0.4 10^3/ul (0-0.8); ABS Neutrophils 4.8 10^3/ul (1.5-7.7); ABS Nucleated RBC 0 10^3/ul; Eosinophil % 1.7 %; Hematocrit 24 % (35-47); Hemoglobin 7.8 g/dl (12.0-16.0); Mean Corpuscular HGB Conc 33 g/dl (31-36); Mean Corpuscular Hemoglobin 30 pg (27-31); Mean Corpuscular Volume 93 fL (80-97); Mean Platelet Volume 10.1 fL (7.4-10.4); Nucleated Red Blood Cells % 0; Platelet Count 138 10^3/ul (150-450); Red Blood Count 2.59 10^6/ul (4.00-5.40); Red Cell Distribution Width 16 % (10.5-15); White Blood Count 5.8 10^3/ul (3.5-10.8)
[2018-03-13 07:24] LABS: BUN/Creatinine Ratio 30.8 (8-20); EGFR African American 42.8 (>60); EGFR Non-African American 35.4 (>60); Potassium 4.3 mmol/L (3.5-5.0)
[2018-03-13] MEDS: Mometasone/Formoter 200/5 MDI INH SCH ×2 (08:01→19:31)
[2018-03-13] MEDS: Ferrous Sulfate TAB* 325 MG PO SCH (08:07)
[2018-03-13] MEDS: Atorvastatin* 20 MG TAB PO SCH (08:07)
[2018-03-13] MEDS: PARoxetine HCL TAB* 10 MG PO SCH (08:07)
[2018-03-13] MEDS: Insulin ISOPH/REG 70/30 (*) 1 UNITS UNIT SUBCUT SCH ×2 (08:07→17:04)
[2018-03-13] MEDS: Pantoprazole TAB * 40 MG TAB PO SCH (08:07)
[2018-03-13] MEDS: guaiFENesin ER TAB 600 MG PO SCH ×2 (08:07→19:41)
[2018-03-13] MEDS: Carvedilol TAB* 6.25 MG PO SCH ×2 (08:07→19:41)
[2018-03-13] MEDS: Aspirin 81 mg CHEW TAB* 81 MG TAB.CHEW PO SCH (08:08)
[2018-03-13] MEDS: Levothyroxine TAB* 25 MCG TAB PO SCH (08:08)
[2018-03-13] MEDS: Torsemide TAB* 20 MG PO SCH (08:08)
[2018-03-13] MEDS: IPRATROPIUM 0.03% BOTH NARES SCH ×2 (08:08→19:33)
[2018-03-13] MEDS: Lisinopril TAB* 5 MG PO SCH (08:08)
[2018-03-13] MEDS: Enoxaparin(*) 30 MG/0.3 ML SYR SUBCUT SCH (13:56)
[2018-03-13] MEDS ORDERED: Furosemide IV* 10 MG/ML 2 ML VIAL (20 MG) IV ONE (16:37)
--- NOTE | 2018-03-13 16:39 | PN ---
Subjective Date of Service: 03/13/18 Interval History: Continues to be sob.Reports feeling exhausted. Family History: Findings - Father in his 70's mother in her 80's, both of heart disease Social History: Findings - Resident of [facility]. Quit smoking 40 yrs ago, no alcohol abuse. Son Daryl is her SDM. Past Medical History: Findings - TAVR, polyclonal gammopathy, CAD, COPD, RA, PUD , hypothyroid, HTN, PPM, gastric bypass, DM with retinopathy. Objective Active Medications: Albuterol (Ventolin 2.5 Mg/3 Ml Neb.Rivka*) 2.5 mg INH Q4HR PRN PRN Reason: SOB/WHEEZING Last Admin: 03/13/18 14:00 Dose: 2.5 mg Albuterol (Ventolin Hfa Inhaler*) 2 puff INH Q6H PRN PRN Reason: SHORTNESS OF BREATH Alprazolam (Xanax Tab*) 0.5 mg PO BID PRN PRN Reason: ANXIETY Last Admin: 03/11/18 21:57 Dose: 0.5 mg Aspirin (Aspirin 81 Mg Chew Tab*) 81 mg PO DAILY [facility] Last Admin: 03/13/18 08:08 Dose: 81 mg Atorvastatin Calcium (Lipitor*) 20 mg PO DAILY [facility] Last Admin: 03/13/18 08:07 Dose: 20 mg Carvedilol (Coreg Tab*) 12.5 mg PO BID [facility] Last Admin: 03/13/18 08:07 Dose: 12.5 mg Cyanocobalamin (Vitamin B12 Tab*) 500 mcg PO QPM [facility] Last Admin: 03/12/18 18:08 Dose: 500 mcg Dextrose (D50w Syringe 50 Ml*) 12.5 gm IV PUSH .FOR FS < 60 - SS PRN PRN Reason: FS < 60 Enoxaparin Sodium (Lovenox(*)) 30 mg SUBCUT Q24H [facility] Last Admin: 03/13/18 13:56 Dose: 30 mg Ferrous Sulfate (Ferrous Sulfate Tab*) 325 mg PO DAILY [facility] Last Admin: 03/13/18 08:07 Dose: 325 mg Furosemide (Lasix Iv*) 20 mg IV ONCE ONE Stop: 03/13/18 16:38 Guaifenesin (Mucinex*) 600 mg PO BID [facility] Last Admin: 03/13/18 08:07 Dose: 600 mg Piperacillin Sod/Tazobactam (Sod 3.375 gm/ Sodium Chloride) 100 mls @ 25 mls/ hr IVPB Q8H [facility] Last Admin: 03/13/18 10:02 Dose: 25 mls/hr Vancomycin HCl 1,000 mg/ (Sodium Chloride) 250 mls @ 166.667 mls/hr IVPB ONCE [facility]; Protocol Stop: 03/13/18 23:59 Insulin Human Isoph/Insulin Regular (Humulin 70/30 (*)) 5 units SUBCUT 0800, 1700 [facility] Last Admin: 03/13/18 08:07 Dose: 5 units Ipratropium [place] (Ipratropium [place]) 2 spray BOTH NARES BID [facility] Last Admin: 03/13/18 08:08 Dose: Not Given Levothyroxine Sodium (Synthroid Tab*) 25 mcg PO DAILY [facility] Last Admin: 03/13/18 08:08 Dose: 25 mcg Lisinopril (Prinivil Tab*) 2.5 mg PO DAILY [facility] Last Admin: 03/13/18 08:08 Dose: 2.5 mg Melatonin (Melatonin) 3 mg PO BEDTIME PRN; Protocol PRN Reason: SLEEP Last Admin: 03/12/18 21:40 Dose: 3 mg Mometasone Furoate/Formoterol Fumar (Dulera 200/5 Mdi*) 2 puff INH BID [facility] Last Admin: 03/13/18 08:01 Dose: 2 puff Nitroglycerin (Nitroglycerin Tab 0.4 Mg*) 0.4 mg SL Q5M PRN PRN Reason: ANGINA Pantoprazole Sodium (Protonix Tab (Nf)) 40 mg PO DAILY [facility] Last Admin: 03/13/18 08:07 Dose: 40 mg Paroxetine HCl (Paxil Tab*) 10 mg PO DAILY [facility] Last Admin: 03/13/18 08:07 Dose: 10 mg Pharmacy Consult (Vancomycin Per Pharmacy*) 1 note FOLLOW UP .VANC PER PHARMACY [facility] Polyethylene Glycol/Electrolytes (Miralax*) 17 gm PO DAILY PRN PRN Reason: CONSTIPATION Sodium Chloride (Sodium Chloride 0.65% Nasal [place]*) 1 spray BOTH NARES Q4H PRN PRN Reason: CONGESTION Last Admin: 03/11/18 22:01 Dose: 1 spr Torsemide (Demadex*) 20 mg PO DAILY [facility] Last Admin: 03/13/18 08:08 Dose: 20 mg Vital Signs - 8 hr 03/13/18 03/13/18 03/13/18 11:18 14:00 15:58 Temperature 97.9 F 97.9 F Pulse Rate 60 68 65 Respiratory 18 16 20 Rate Blood Pressure 134/51 133/46 (mmHg) O2 Sat by Pulse 100 99 100 Oximetry Oxygen Devices in Use Now: Nasal Cannula Eyes: No Scleral Icterus Neck: NL Appearance and Movements; NL JVP Respiratory: - - Basal crackles,no wheezes,rhonchi,bronchial breath sounds Cardiovascular: NL Sounds; No Murmurs; No JVD Extremities: - - Edema present Neurological: Alert and Oriented x 3 Result Diagrams: 03/13/18 06:18 03/13/18 06:18 Microbiology and Other Data: Microbiology 03/11/18 11:50 Aerobic Blood Culture - Preliminary Blood Line No Growth Day 1 Anaerobic Blood Culture - Preliminary No Growth Day 1 03/11/18 11:20 Aerobic Blood Culture - Preliminary Blood Line No Growth Day 1 Anaerobic Blood Culture - Preliminary No Growth Day 1 03/11/18 18:15 Nasal Screen MRSA (PCR) - Final Nasal Mrsa Not Detected 03/11/18 18:15 Influenza Types A,B Antigen - Final Nasal Specimen received for Influenza A/B Molecular testing Assess/Plan/Problems-Billing Assessment: - Patient Problems (1) CKD (chronic kidney disease) Current Visit: No Status: Acute Code(s): N18.9 - CHRONIC KIDNEY DISEASE, UNSPECIFIED SNOMED Code(s): 998030714 (2) CHF (congestive heart failure) Current Visit: No Status: Acute Code(s): I50.9 - HEART FAILURE, UNSPECIFIED SNOMED Code(s): 60939641 Comment: Compensated. -Continue Carvedilol, lisinopril, torsemide. (3) Diabetes Current Visit: No Status: Acute Code(s): E11.9 - TYPE 2 DIABETES MELLITUS WITHOUT COMPLICATIONS SNOMED Code(s): 95289979 Comment: Has issues with hypoglycemia in past, on 5 U at 0800, 1700. FS achs with parameters. High today and needed supplementatl coverage.Will adjust insulin based on numbers (4) Pneumonia Current Visit: No Status: Acute Code(s): J18.9 - PNEUMONIA, UNSPECIFIED ORGANISM SNOMED Code(s): 887997315 Comment: Continue pip/nina, increase guaifenesin [place] to bid. Still sob Diarrhea, likely antibiotic associated.Will check C diff
[2018-03-13] MEDS ORDERED: Vancomycin per Pharmacy* NOTE FOLLOW UP SCH (17:00)
[2018-03-13] MEDS ORDERED: Vancomycin(*) 1,000 MG in NS 0.9% 250 ML* 250 ML IVPB ONE (17:00)
[2018-03-13] MEDS: Cyanocobalamin TAB* 500 MCG PO SCH (17:04)
[2018-03-13] MEDS: ALPRAZolam TAB* 0.5 MG PO PRN (19:45)
[2018-03-13] MEDS: Melatonin 3 MG TAB PO PRN (19:46)
[2018-03-14] MEDS: Piperacillin/Tazobac ADVAN(*) 3.375 GM in NS 0.9% 100 ML* 100 ML IVPB SCH ×3 (01:58→17:40)
[2018-03-14] MEDS: Albuterol 2.5 MG/3 ML NEB.SOL* (0.083%) INH PRN ×3 (06:02→20:08)
[2018-03-14] MEDS: Mometasone/Formoter 200/5 MDI INH SCH ×2 (08:19→20:12)
[2018-03-14] MEDS: Albuterol HFA INHALER* 8 gm MDI INH PRN (08:19)
[2018-03-14 09:32] LABS: ABS Basophils 0 10^3/ul (0-0.2); ABS Eosinophils 0.1 10^3/ul (0-0.6); ABS Lymphocytes 0.4 10^3/ul (1.0-4.8); ABS Monocytes 0.4 10^3/ul (0-0.8); ABS Neutrophils 3.7 10^3/ul (1.5-7.7); ABS Nucleated RBC 0 10^3/ul; Eosinophil % 1.8 %; Hematocrit 25 % (35-47); Hemoglobin 8.2 g/dl (12.0-16.0); Lymphocyte % 9.2 %; Mean Corpuscular HGB Conc 33 g/dl (31-36); Mean Corpuscular Hemoglobin 30 pg (27-31); Mean Corpuscular Volume 93 fL (80-97); Mean Platelet Volume 9.4 fL (7.4-10.4); Nucleated Red Blood Cells % 0.1; Platelet Count 145 10^3/ul (150-450); Red Blood Count 2.72 10^6/ul (4.00-5.40); Red Cell Distribution Width 16 % (10.5-15); White Blood Count 4.6 10^3/ul (3.5-10.8)
[2018-03-14] MEDS: Levothyroxine TAB* 25 MCG TAB PO SCH (10:03)
[2018-03-14] MEDS: Pantoprazole TAB * 40 MG TAB PO SCH (10:03)
[2018-03-14] MEDS: Ferrous Sulfate TAB* 325 MG PO SCH (10:03)
[2018-03-14] MEDS: Lisinopril TAB* 5 MG PO SCH (10:03)
[2018-03-14] MEDS: Atorvastatin* 20 MG TAB PO SCH (10:03)
[2018-03-14] MEDS: guaiFENesin ER TAB 600 MG PO SCH ×2 (10:03→20:42)
[2018-03-14] MEDS: Aspirin 81 mg CHEW TAB* 81 MG TAB.CHEW PO SCH (10:03)
[2018-03-14] MEDS: Vancomycin(*) 750 MG in NS 0.9% 250 ML* 250 ML IVPB SCH ×2 (10:03→22:55)
[2018-03-14] MEDS: Torsemide TAB* 20 MG PO SCH (10:03)
[2018-03-14] MEDS: PARoxetine HCL TAB* 10 MG PO SCH (10:03)
[2018-03-14] MEDS: Carvedilol TAB* 6.25 MG PO SCH ×2 (10:03→20:42)
[2018-03-14] MEDS: Insulin ISOPH/REG 70/30 (*) 1 UNITS UNIT SUBCUT SCH ×2 (10:07→17:39)
[2018-03-14 10:13] LABS: Calcium 6.7 mg/dL (8.6-10.3); Potassium 4.2 mmol/L (3.5-5.0)
[2018-03-14 10:18] LABS: EGFR African American 39.9 (>60)
[2018-03-14] MEDS: IPRATROPIUM 0.03% BOTH NARES SCH ×2 (11:07→20:33)
[2018-03-14] MEDS: Loperamide CAP* 2 MG PO PRN (11:16)
[2018-03-14] MEDS: Enoxaparin(*) 30 MG/0.3 ML SYR SUBCUT SCH (14:05)
--- NOTE | 2018-03-14 15:24 | PN ---
Subjective Date of Service: 03/14/18 Interval History: Patient continues to have cough, and some SOB at rest. Has not been OOB yet today. 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 Eating OK. Family History: Unchanged from Admission - Father in his 70's mother in her 80's, both of heart disease Social History: Unchanged from Admission - Resident of [facility]. Quit smoking 40 yrs ago, no alcohol abuse. Son Daryl is her SDM. Past Medical History: Unchanged from Admission - TAVR, polyclonal gammopathy, CAD, COPD, RA, PUD, hypothyroid, HTN, PPM, gastric bypass, DM with retinopathy. Objective Active Medications: Albuterol (Ventolin 2.5 Mg/3 Ml Neb.Rivka*) 2.5 mg INH Q4HR PRN PRN Reason: SOB/WHEEZING Last Admin: 03/14/18 11:41 Dose: 2.5 mg Albuterol (Ventolin Hfa Inhaler*) 2 puff INH Q6H PRN PRN Reason: SHORTNESS OF BREATH Last Admin: 03/14/18 08:19 Dose: 2 puff Alprazolam (Xanax Tab*) 0.5 mg PO BID PRN PRN Reason: ANXIETY Last Admin: 03/13/18 19:45 Dose: 0.5 mg Aspirin (Aspirin 81 Mg Chew Tab*) 81 mg PO DAILY [facility] Last Admin: 03/14/18 10:03 Dose: 81 mg Atorvastatin Calcium (Lipitor*) 20 mg PO DAILY [facility] Last Admin: 03/14/18 10:03 Dose: 20 mg Carvedilol (Coreg Tab*) 12.5 mg PO BID [facility] Last Admin: 03/14/18 10:03 Dose: 12.5 mg Cyanocobalamin (Vitamin B12 Tab*) 500 mcg PO QPM [facility] Last Admin: 03/13/18 17:04 Dose: 500 mcg Dextrose (D50w Syringe 50 Ml*) 12.5 gm IV PUSH .FOR FS < 60 - SS PRN PRN Reason: FS < 60 Enoxaparin Sodium (Lovenox(*)) 30 mg SUBCUT Q24H [facility] Last Admin: 03/14/18 14:05 Dose: 30 mg Ferrous Sulfate (Ferrous Sulfate Tab*) 325 mg PO DAILY [facility] Last Admin: 03/14/18 10:03 Dose: 325 mg Guaifenesin (Mucinex*) 600 mg PO BID [facility] Last Admin: 03/14/18 10:03 Dose: 600 mg Piperacillin Sod/Tazobactam (Sod 3.375 gm/ Sodium Chloride) 100 mls @ 25 mls/ hr IVPB Q8H [facility] Last Admin: 03/14/18 11:21 Dose: 25 mls/hr Vancomycin HCl 750 mg/ Sodium (Chloride) 250 mls @ 166.667 mls/hr IVPB Q12H [facility] Last Admin: 03/14/18 10:03 Dose: 166.667 mls/hr Insulin Human Isoph/Insulin Regular (Humulin 70/30 (*)) 5 units SUBCUT 0800, 1700 [facility] Last Admin: 03/14/18 10:07 Dose: 5 units Ipratropium [place] (Ipratropium [place]) 2 spray BOTH NARES BID [facility] Last Admin: 03/14/18 11:07 Dose: Not Given Levothyroxine Sodium (Synthroid Tab*) 25 mcg PO DAILY [facility] Last Admin: 03/14/18 10:03 Dose: 25 mcg Lisinopril (Prinivil Tab*) 2.5 mg PO DAILY [facility] Last Admin: 03/14/18 10:03 Dose: 2.5 mg Loperamide HCl (Imodium Cap*) 2 mg PO .SEE DIRECTIONS PRN PRN Reason: DIARRHEA Last Admin: 03/14/18 11:16 Dose: 2 mg Melatonin (Melatonin) 3 mg PO BEDTIME PRN; Protocol PRN Reason: SLEEP Last Admin: 03/13/18 19:46 Dose: 3 mg Mometasone Furoate/Formoterol Fumar (Dulera 200/5 Mdi*) 2 puff INH BID [facility] Last Admin: 03/14/18 08:19 Dose: 2 puff Nitroglycerin (Nitroglycerin Tab 0.4 Mg*) 0.4 mg SL Q5M PRN PRN Reason: ANGINA Pantoprazole Sodium (Protonix Tab (Nf)) 40 mg PO DAILY [facility] Last Admin: 03/14/18 10:03 Dose: 40 mg Paroxetine HCl (Paxil Tab*) 10 mg PO DAILY [facility] Last Admin: 03/14/18 10:03 Dose: 10 mg Pharmacy Consult (Vancomycin Per Pharmacy*) 1 note FOLLOW UP .VANC PER PHARMACY [facility] olyethylene Glycol/Electrolytes (Miralax*) 17 gm PO DAILY PRN PRN Reason: CONSTIPATION Sodium Chloride (Sodium Chloride 0.65% Nasal [place]*) 1 spray BOTH NARES Q4H PRN PRN Reason: CONGESTION Last Admin: 03/11/18 22:01 Dose: 1 spr Torsemide (Demadex*) 20 mg PO DAILY [facility] Last Admin: 03/14/18 10:03 Dose: 20 mg Vital Signs - 8 hr 03/14/18 03/14/18 03/14/18 07:59 08:00 08:19 Temperature 36.4 C Pulse Rate 65 73 Respiratory 20 20 16 Rate Blood Pressure 134/37 (mmHg) O2 Sat by Pulse 100 99 Oximetry 03/14/18 03/14/18 03/14/18 11:16 11:41 12:40 Temperature 36.4 C Pulse Rate 69 70 Respiratory 19 16 20 Rate Blood Pressure 144/63 (mmHg) O2 Sat by Pulse 100 100 Oximetry Oxygen Devices in Use Now: Nasal Cannula Appearance: elderly, fatigued, NAD Ears/Nose/Mouth/Throat: Clear Oropharnyx Neck: NL Appearance and Movements; NL JVP Respiratory: Symmetrical Chest Expansion and Respiratory Effort, - - rales LT lower field, RT base Cardiovascular: NL Sounds; No Murmurs; No JVD, - - 2+ edema LLE, 1+ RLE Abdominal: NL Sounds; No Tenderness; No Distention Skin: No Rash or Ulcers Neurological: - - alert, cooperative Lines/Tubes/Other Access: Clean, Dry and Intact Peripheral IV Result Diagrams: 03/14/18 09:24 03/14/18 09:24 Microbiology and Other Data: Microbiology 03/11/18 18:15 Nasal Nasal Screen MRSA (PCR) - Final Mrsa Not Detected 03/11/18 18:15 Nasal Influenza Types A,B Antigen - Final Specimen received for Influenza A/B Molecular testing 03/11/18 11:50 Blood Line Aerobic Blood Culture - Preliminary 03/11/18 11:50 Blood Line Anaerobic Blood Culture - Preliminary No Growth Day 3 No Growth Day 3 03/11/18 11:20 Blood Line Aerobic Blood Culture - Preliminary 03/11/18 11:20 Blood Line Anaerobic Blood Culture - Preliminary No Growth Day 3 No Growth Day 3 Assess/Plan/Problems-Billing Assessment: 78 year old woman admitted with pneumonia from rehab facility, may also have element of CHF. - Patient Problems (1) Healthcare-associated pneumonia Current Visit: Yes Status: Acute Priority: High Code(s): J18.9 - PNEUMONIA , UNSPECIFIED ORGANISM SNOMED Code(s): 702969518 Comment: - partially responding to antibiotics - not ready for discharge - continue Vanco/zosyn (2) Acute systolic (congestive) heart failure Current Visit: No Status: Acute Priority: Medium Code(s): I50.21 - ACUTE SYSTOLIC (CONGESTIVE) HEART FAILURE SNOMED Code(s): 960224341 Comment: - Last EF 30-35% in February 08. - I/O not clear, will keep track strictly - Continue oral diuretic (3) Anemia Current Visit: No Status: Acute Priority: Medium Onset Date: 06/28/14 Code(s): D64.9 - ANEMIA, UNSPECIFIED SNOMED Code(s): 677705171 Comment: -Pt has chronic anemia; Will investigate fully, may contribute to CHF -Continue ferrous sulfate (4) DVT prophylaxis Current Visit: No Status: Acute Priority: Medium Code(s): GMM9366 - SNOMED Code(s): 951843229 Comment: -Lovenox Status and Disposition: inpatient, may return to SNF in 1-2 days
[2018-03-14] MEDS: Cyanocobalamin TAB* 500 MCG PO SCH (17:40)
[2018-03-14] MEDS: ALPRAZolam TAB* 0.5 MG PO PRN (20:42)
[2018-03-14] MEDS: Melatonin 3 MG TAB PO PRN (20:42)
[2018-03-15] MEDS: Piperacillin/Tazobac ADVAN(*) 3.375 GM in NS 0.9% 100 ML* 100 ML IVPB SCH ×3 (02:59→17:27)
[2018-03-15] MEDS: Albuterol 2.5 MG/3 ML NEB.SOL* (0.083%) INH PRN ×2 (07:17→16:57)
[2018-03-15] MEDS: Mometasone/Formoter 200/5 MDI INH SCH ×3 (07:18→20:11)
[2018-03-15] MEDS ORDERED: Vancomycin Trough Check NOTE FOLLOW UP ONE (07:30)
[2018-03-15] MEDS: Insulin ISOPH/REG 70/30 (*) 1 UNITS UNIT SUBCUT SCH ×2 (08:34→17:29)
[2018-03-15 08:36] LABS: ABS Basophils 0 10^3/ul (0-0.2); ABS Eosinophils 0.1 10^3/ul (0-0.6); ABS Lymphocytes 0.4 10^3/ul (1.0-4.8); ABS Monocytes 0.3 10^3/ul (0-0.8); ABS Neutrophils 2.6 10^3/ul (1.5-7.7); ABS Nucleated RBC 0 10^3/ul; Corrected Retic Count 0.5 % (0.5-1.5); Eosinophil % 2.9 %; Hematocrit 24 % (35-47); Hematocrit for Retic CNT 24 % (35-47); Hemoglobin 7.8 g/dl (12.0-16.0); Lymphocyte % 12.7 %; Mean Corpuscular HGB Conc 32 g/dl (31-36); Mean Corpuscular Hemoglobin 30 pg (27-31); Mean Corpuscular Volume 93 fL (80-97); Mean Platelet Volume 9.7 fL (7.4-10.4); Nucleated Red Blood Cells % 0; Platelet Count 132 10^3/ul (150-450); RBC Retic Count 2.59 10^6/ul (4.6-6.2); Red Blood Count 2.59 10^6/ul (4.00-5.40); Red Cell Distribution Width 17 % (10.5-15); White Blood Count 3.5 10^3/ul (3.5-10.8)
[2018-03-15] MEDS: Torsemide TAB* 20 MG PO SCH (08:36)
[2018-03-15] MEDS: Lisinopril TAB* 5 MG PO SCH (08:36)
[2018-03-15] MEDS: Ferrous Sulfate TAB* 325 MG PO SCH (08:38)
[2018-03-15] MEDS: Atorvastatin* 20 MG TAB PO SCH (08:38)
[2018-03-15] MEDS: Aspirin 81 mg CHEW TAB* 81 MG TAB.CHEW PO SCH (08:39)
[2018-03-15] MEDS: Carvedilol TAB* 6.25 MG PO SCH ×2 (08:39→21:08)
[2018-03-15] MEDS: Pantoprazole TAB * 40 MG TAB PO SCH (08:39)
[2018-03-15] MEDS: Levothyroxine TAB* 25 MCG TAB PO SCH (08:40)
[2018-03-15] MEDS: PARoxetine HCL TAB* 10 MG PO SCH (08:40)
[2018-03-15] MEDS: guaiFENesin ER TAB 600 MG PO SCH ×2 (08:40→21:09)
[2018-03-15] MEDS: IPRATROPIUM 0.03% BOTH NARES SCH (08:41)
[2018-03-15 08:54] LABS: BUN/Creatinine Ratio 23.5 (8-20); Blood Urea Nitrogen 36 mg/dL (6-24); CO2 Carbon Dioxide 22 mmol/L (22-32); Calcium 6.7 mg/dL (8.6-10.3); EGFR African American 39.6 (>60); EGFR Non-African American 32.7 (>60); Glucose 143 mg/dL (70-100); Potassium 4.2 mmol/L (3.5-5.0); Sodium 141 mmol/L (135-145)
[2018-03-15 08:55] LABS: Anion Gap 7 mmol/L (2-11); Chloride 112 mmol/L (101-111)
[2018-03-15 09:05] LABS: % Iron Saturation 19 % (15-55); Iron 30 ug/dL (50-212); Total Iron Binding Capacity 162 mcg/dL (250-450); Transferrin 116 mg/dL (203-362); Vancomycin Trough 17.5 mcg/mL
[2018-03-15] MEDS: Vancomycin(*) 750 MG in NS 0.9% 250 ML* 250 ML IVPB SCH (09:15)
[2018-03-15] MEDS: Loperamide CAP* 2 MG PO PRN (10:48)
[2018-03-15] MEDS: Enoxaparin(*) 30 MG/0.3 ML SYR SUBCUT SCH (13:32)
--- NOTE | 2018-03-15 15:05 | PN ---
Subjective Date of Service: 03/15/18 Interval History: Patient feels weak. She has orthopnea, but no SOB at rest. Walked to bathroom earlier today, but in afternoon needed 2 assist to get from commode to bed. 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 Eating OK. Has loose stools. Family History: Unchanged from Admission - Father in his 70's mother in her 80's, both of heart disease Social History: Unchanged from Admission - Resident of [facility]. Quit smoking 40 yrs ago, no alcohol abuse. Son Daryl is her SDM. Past Medical History: Unchanged from Admission - TAVR, polyclonal gammopathy, CAD, COPD, RA, PUD, hypothyroid, HTN, PPM, gastric bypass, DM with retinopathy. Objective Active Medications: Albuterol (Ventolin 2.5 Mg/3 Ml Neb.Rivka*) 2.5 mg INH Q4HR PRN PRN Reason: SOB/WHEEZING Last Admin: 03/15/18 07:17 Dose: 2.5 mg Albuterol (Ventolin Hfa Inhaler*) 2 puff INH Q6H PRN PRN Reason: SHORTNESS OF BREATH Last Admin: 03/14/18 08:19 Dose: 2 puff Alprazolam (Xanax Tab*) 0.5 mg PO BID PRN PRN Reason: ANXIETY Last Admin: 03/14/18 20:42 Dose: 0.5 mg Aspirin (Aspirin 81 Mg Chew Tab*) 81 mg PO DAILY [facility] Last Admin: 03/15/18 08:39 Dose: 81 mg Atorvastatin Calcium (Lipitor*) 20 mg PO DAILY [facility] Last Admin: 03/15/18 08:38 Dose: 20 mg Carvedilol (Coreg Tab*) 12.5 mg PO BID [facility] Last Admin: 03/15/18 08:39 Dose: 12.5 mg Cyanocobalamin (Vitamin B12 Tab*) 500 mcg PO QPM [facility] Last Admin: 03/14/18 17:40 Dose: 500 mcg Dextrose (D50w Syringe 50 Ml*) 12.5 gm IV PUSH .FOR FS < 60 - SS PRN PRN Reason: FS < 60 Enoxaparin Sodium (Lovenox(*)) 30 mg SUBCUT Q24H [facility] Last Admin: 03/15/18 13:32 Dose: 30 mg Ferrous Sulfate (Ferrous Sulfate Tab*) 325 mg PO DAILY [facility] Last Admin: 03/15/18 08:38 Dose: 325 mg Guaifenesin (Mucinex*) 600 mg PO BID [facility] Last Admin: 03/15/18 08:40 Dose: 600 mg Piperacillin Sod/Tazobactam (Sod 3.375 gm/ Sodium Chloride) 100 mls @ 25 mls/ hr IVPB Q8H [facility] Last Admin: 03/15/18 11:13 Dose: 25 mls/hr Insulin Human Isoph/Insulin Regular (Humulin 70/30 (*)) 5 units SUBCUT 0800, 1700 [facility] Last Admin: 03/15/18 08:34 Dose: 5 units Ipratropium [place] (Ipratropium [place]) 2 spray BOTH NARES BID [facility] Last Admin: 03/15/18 08:41 Dose: Not Given Levothyroxine Sodium (Synthroid Tab*) 25 mcg PO DAILY [facility] Last Admin: 03/15/18 08:40 Dose: 25 mcg Lisinopril (Prinivil Tab*) 2.5 mg PO DAILY [facility] Last Admin: 03/15/18 08:36 Dose: 2.5 mg Loperamide HCl (Imodium Cap*) 2 mg PO .SEE DIRECTIONS PRN PRN Reason: DIARRHEA Last Admin: 03/15/18 10:48 Dose: 2 mg Melatonin (Melatonin) 3 mg PO BEDTIME PRN; Protocol PRN Reason: SLEEP Last Admin: 03/14/18 20:42 Dose: 3 mg Mometasone Furoate/Formoterol Fumar (Dulera 200/5 Mdi*) 2 puff INH BID [facility] Last Admin: 03/15/18 07:18 Dose: 2 puff Nitroglycerin (Nitroglycerin Tab 0.4 Mg*) 0.4 mg SL Q5M PRN PRN Reason: ANGINA Pantoprazole Sodium (Protonix Tab (Nf)) 40 mg PO DAILY [facility] Last Admin: 03/15/18 08:39 Dose: 40 mg Paroxetine HCl (Paxil Tab*) 10 mg PO DAILY [facility] Last Admin: 03/15/18 08:40 Dose: 10 mg Polyethylene Glycol/Electrolytes (Miralax*) 17 gm PO DAILY PRN PRN Reason: CONSTIPATION Sodium Chloride (Sodium Chloride 0.65% Nasal [place]*) 1 spray BOTH NARES Q4H PRN PRN Reason: CONGESTION Last Admin: 03/11/18 22:01 Dose: 1 spr Torsemide (Demadex*) 20 mg PO DAILY [facility] Last Admin: 03/15/18 08:36 Dose: 20 mg Vital Signs - 8 hr 03/15/18 03/15/18 03/15/18 07:18 07:25 08:00 Temperature 36.2 C Pulse Rate 60 67 Respiratory 14 22 22 Rate Blood Pressure 154/58 (mmHg) O2 Sat by Pulse 98 100 Oximetry 03/15/18 03/15/18 10:48 11:16 Temperature 36.4 C Pulse Rate 61 Respiratory 18 18 Rate Blood Pressure 136/54 (mmHg) O2 Sat by Pulse 100 Oximetry Oxygen Devices in Use Now: Nasal Cannula Appearance: fatigued appearing Eyes: No Scleral Icterus Ears/Nose/Mouth/Throat: Clear Oropharnyx Neck: No Thyroid Enlargement, Masses Respiratory: Symmetrical Chest Expansion and Respiratory Effort - rales at bases bilat, - Cardiovascular: NL Sounds; No Murmurs; No JVD, RRR Abdominal: NL Sounds; No Tenderness; No Distention, No Hepatosplenomegaly Extremities: - - 1+ edema bilat LE Skin: No Rash or Ulcers Neurological: Alert and Oriented x 3 Lines/Tubes/Other Access: Clean, Dry and Intact Peripheral IV Nutrition: Taking PO's Result Diagrams: 03/15/18 08:15 03/15/18 08:15 Additional Lab and Data: Laboratory Tests 03/14/18 03/15/18 03/15/18 23:01 08:15 08:15 Retic Count, Calc 1.0 Corrected Retic Count 0.5 POC Glucose (mg/dL) 155 H Iron 30 L TIBC 162 L % Saturation 19 Unsat Iron Binding < 147 Transferrin 116 L Vitamin B12 > 1450 H 03/15/18 03/15/18 08:25 11:59 Retic Count, Calc Corrected Retic Count POC Glucose (mg/dL) 165 H 157 H Iron TIBC % Saturation Unsat Iron Binding Transferrin Vitamin B12 Microbiology and Other Data: Microbiology NGTD Assess/Plan/Problems-Billing Assessment: 78 year old woman admitted with pneumonia from rehab facility, may also have element of CHF. - Patient Problems (1) Healthcare-associated pneumonia Current Visit: Yes Status: Acute Priority: High Code(s): J18.9 - PNEUMONIA , UNSPECIFIED ORGANISM SNOMED Code(s): 985507206 Comment: - partially responding to antibiotics - not ready for discharge - stopped vanco, poor evidence for benefit with HCAP - continue Zosyn (2) Acute systolic (congestive) heart failure Current Visit: No Status: Acute Priority: Medium Code(s): I50.21 - ACUTE SYSTOLIC (CONGESTIVE) HEART FAILURE SNOMED Code(s): 963164221 Comment: - Last EF 30-35% in February 08. - I/O not clear, will keep track strictly, and check daily weights - Continue oral diuretic, appears to be coming into compensated state (3) Anemia Current Visit: No Status: Acute Priority: Medium Onset Date: 06/28/14 Code(s): D64.9 - ANEMIA, UNSPECIFIED SNOMED Code(s): 684136167 Comment: -Pt has chronic anemia; appears to be anemia of chronic disease, make also have anemia of renal disease -Continue ferrous sulfate, may benefit from Epogen, awaiting erythropoetin level (4) DVT prophylaxis Current Visit: No Status: Acute Priority: Medium Code(s): KJM7317 - SNOMED Code(s): 689042148 Comment: -Lovenox (5) Type II diabetes mellitus Current Visit: No Status: Acute Comment: -under good control -Continue 70/30 and sliding scale Insulin -Continue to monitor blood sugar Status and Disposition: inpatient, may return to SNF in 1-2 days
[2018-03-15] MEDS: Cyanocobalamin TAB* 500 MCG PO SCH (17:27)
[2018-03-15] MEDS: ALPRAZolam TAB* 0.5 MG PO PRN (21:08)
[2018-03-15] MEDS: Melatonin 3 MG TAB PO PRN (21:09)
[2018-03-16] MEDS: Albuterol 2.5 MG/3 ML NEB.SOL* (0.083%) INH PRN ×3 (01:29→19:36)
[2018-03-16] MEDS: Piperacillin/Tazobac ADVAN(*) 3.375 GM in NS 0.9% 100 ML* 100 ML IVPB SCH ×2 (01:53→10:04)
[2018-03-16 07:03] LABS: BUN/Creatinine Ratio 23.6 (8-20); Calcium 6.6 mg/dL (8.6-10.3); EGFR African American 42.5 (>60); EGFR Non-African American 35.1 (>60); Potassium 3.9 mmol/L (3.5-5.0)
[2018-03-16] MEDS ORDERED: Vancomycin Trough Check NOTE FOLLOW UP ONE (07:30)
[2018-03-16] MEDS: IPRATROPIUM 0.03% BOTH NARES SCH ×3 (07:54→20:25)
[2018-03-16] MEDS: ALPRAZolam TAB* 0.5 MG PO PRN (07:56)
[2018-03-16] MEDS: guaiFENesin ER TAB 600 MG PO SCH ×2 (07:57→19:58)
[2018-03-16] MEDS: Atorvastatin* 20 MG TAB PO SCH (07:57)
[2018-03-16] MEDS: Pantoprazole TAB * 40 MG TAB PO SCH (07:57)
[2018-03-16] MEDS: Carvedilol TAB* 6.25 MG PO SCH ×2 (07:57→19:58)
[2018-03-16] MEDS: Torsemide TAB* 20 MG PO SCH (07:57)
[2018-03-16] MEDS: PARoxetine HCL TAB* 10 MG PO SCH (07:57)
[2018-03-16] MEDS: Aspirin 81 mg CHEW TAB* 81 MG TAB.CHEW PO SCH (07:57)
[2018-03-16] MEDS: Levothyroxine TAB* 25 MCG TAB PO SCH (07:58)
[2018-03-16] MEDS: Mometasone/Formoter 200/5 MDI INH SCH ×2 (07:58→19:45)
[2018-03-16] MEDS: Lisinopril TAB* 5 MG PO SCH (07:58)
[2018-03-16] MEDS: Insulin ISOPH/REG 70/30 (*) 1 UNITS UNIT SUBCUT SCH ×2 (08:13→17:00)
[2018-03-16] MEDS: Ferrous Sulfate TAB* 325 MG PO SCH (10:03)
[2018-03-16] MEDS: Enoxaparin(*) 30 MG/0.3 ML SYR SUBCUT SCH (14:33)
--- NOTE | 2018-03-16 14:54 | PN ---
Subjective Date of Service: 03/16/18 Interval History: Pt seen and examined. Meds and labs reviewed. CC: N/A ROS: Denied CHAKRABORTY/dizziness, F/C, N/V, CP, SOB, increased cough, sputum production , abd pain, diarrhea, constipation, dysuria, myalgias, arthralgias, throat pain , and new skin lesions. The rest of the 14 point ROS are unremarkable. PHYSICAL EXAM: GEN APPEARANCE: Awake, not in acute distress HEENT: NC/AT, PERRLA, moist oral mucosa, (-) throat erythema NECK: Soft, supple, (-) cervical LAD HEART: S1S2 WNL, RRR, No MRG CHEST: CTA, BL, GAE, (+)Ronchi and crackles ABD: Soft, ND/NT, NABS 4x Q EXT: No C/C/BLLE edema, Left>Right SKIN: Warm to touch PSYCH: No active psychosis, hallucinations, depression, SI/HI Family History: Unchanged from Admission - Father in his 70's mother in her 80's, both of heart disease Social History: Unchanged from Admission - Resident of [facility]. Quit smoking 40 yrs ago, no alcohol abuse. Son Daryl is her SDM. Past Medical History: Unchanged from Admission - TAVR, polyclonal gammopathy, CAD, COPD, RA, PUD, hypothyroid, HTN, PPM, gastric bypass, DM with retinopathy. Objective Active Medications: Albuterol (Ventolin 2.5 Mg/3 Ml Neb.Rivka*) 2.5 mg INH Q4HR PRN PRN Reason: SOB/WHEEZING Last Admin: 03/16/18 01:29 Dose: 2.5 mg Albuterol (Ventolin Hfa Inhaler*) 2 puff INH Q6H PRN PRN Reason: SHORTNESS OF BREATH Last Admin: 03/14/18 08:19 Dose: 2 puff Alprazolam (Xanax Tab*) 0.5 mg PO BID PRN PRN Reason: ANXIETY Last Admin: 03/16/18 07:56 Dose: 0.5 mg Aspirin (Aspirin 81 Mg Chew Tab*) 81 mg PO DAILY [facility] Last Admin: 03/16/18 07:57 Dose: 81 mg Atorvastatin Calcium (Lipitor*) 20 mg PO DAILY [facility] Last Admin: 03/16/18 07:57 Dose: 20 mg Carvedilol (Coreg Tab*) 12.5 mg PO BID [facility] Last Admin: 03/16/18 07:57 Dose: 12.5 mg Cyanocobalamin (Vitamin B12 Tab*) 500 mcg PO QPM [facility] Last Admin: 03/15/18 17:27 Dose: 500 mcg Dextrose (D50w Syringe 50 Ml*) 12.5 gm IV PUSH .FOR FS < 60 - SS PRN PRN Reason: FS < 60 Enoxaparin Sodium (Lovenox(*)) 30 mg SUBCUT Q24H [facility] Last Admin: 03/16/18 14:33 Dose: 30 mg Ferrous Sulfate (Ferrous Sulfate Tab*) 325 mg PO DAILY [facility] Last Admin: 03/16/18 10:03 Dose: 325 mg Furosemide (Lasix Iv*) 40 mg IV BID [facility] Guaifenesin (Mucinex*) 600 mg PO BID [facility] Last Admin: 03/16/18 07:57 Dose: 600 mg Ceftriaxone Sodium 1 gm/ (Sodium Chloride) 50 mls @ 200 mls/hr IVPB Q24H [facility] Insulin Human Isoph/Insulin Regular (Humulin 70/30 (*)) 5 units SUBCUT 0800, 1700 [facility] Last Admin: 03/16/18 08:13 Dose: 5 units Ipratropium [place] (Ipratropium [place]) 2 spray BOTH NARES BID [facility] Last Admin: 03/16/18 08:09 Dose: Not Given Lactobacillus Rhamnosus (Lactobacillus Acidophilus*) 2 tab PO DAILY [facility] Stop: 03/24/18 14:59 Levothyroxine Sodium (Synthroid Tab*) 25 mcg PO DAILY [facility] Last Admin: 03/16/18 07:58 Dose: 25 mcg Lisinopril (Prinivil Tab*) 2.5 mg PO DAILY [facility] Last Admin: 03/16/18 07:58 Dose: 2.5 mg Loperamide HCl (Imodium Cap*) 2 mg PO .SEE DIRECTIONS PRN PRN Reason: DIARRHEA Last Admin: 03/15/18 10:48 Dose: 2 mg Melatonin (Melatonin) 3 mg PO BEDTIME PRN; Protocol PRN Reason: SLEEP Last Admin: 03/15/18 21:09 Dose: 3 mg Mometasone Furoate/Formoterol Fumar (Dulera 200/5 Mdi*) 2 puff INH BID [facility] Last Admin: 03/16/18 07:58 Dose: 2 puff Nitroglycerin (Nitroglycerin Tab 0.4 Mg*) 0.4 mg SL Q5M PRN PRN Reason: ANGINA Pantoprazole Sodium (Protonix Tab (Nf)) 40 mg PO DAILY [facility] Last Admin: 03/16/18 07:57 Dose: 40 mg Paroxetine HCl (Paxil Tab*) 10 mg PO DAILY [facility] Last Admin: 03/16/18 07:57 Dose: 10 mg Polyethylene Glycol/Electrolytes (Miralax*) 17 gm PO DAILY PRN PRN Reason: CONSTIPATION Sodium Chloride (Sodium Chloride 0.65% Nasal [place]*) 1 spray BOTH NARES Q4H PRN PRN Reason: CONGESTION Last Admin: 03/11/18 22:01 Dose: 1 spr Vital Signs - 8 hr 03/16/18 03/16/18 03/16/18 07:25 07:56 08:00 Temperature 97.3 F Pulse Rate 62 Respiratory 20 20 20 Rate Blood Pressure 152/42 (mmHg) O2 Sat by Pulse 98 Oximetry 03/16/18 03/16/18 11:26 13:12 Temperature 97.8 F Pulse Rate 59 Respiratory 16 16 Rate Blood Pressure 134/45 (mmHg) O2 Sat by Pulse 99 Oximetry Oxygen Devices in Use Now: None Result Diagrams: 03/15/18 08:15 03/16/18 05:50 Additional Lab and Data: Laboratory Tests 03/14/18 03/15/18 03/15/18 23:01 08:15 08:15 Retic Count, Calc 1.0 Corrected Retic Count 0.5 POC Glucose (mg/dL) 155 H Iron 30 L TIBC 162 L % Saturation 19 Unsat Iron Binding < 147 Transferrin 116 L Vitamin B12 > 1450 H 03/15/18 03/15/18 08:25 11:59 Retic Count, Calc Corrected Retic Count POC Glucose (mg/dL) 165 H 157 H Iron TIBC % Saturation Unsat Iron Binding Transferrin Vitamin B12 Microbiology and Other Data: Microbiology NGTD Assess/Plan/Problems-Billing Assessment: 78 year old woman admitted with pneumonia from rehab facility, may also have element of CHF. - Patient Problems (1) Healthcare-associated pneumonia Current Visit: Yes Status: Acute Priority: High Code(s): J18.9 - PNEUMONIA , UNSPECIFIED ORGANISM SNOMED Code(s): 780051952 Comment: -On Zosyn, abx day #07/01 -Blood Cx (03/11): (-); finalized -Rapid flu test (-) -D/C Zosyn and place pt on Rocephin day#07/01 -Place on Lactobacillus spp -Obtain CT Chest, non-contrast (2) Diastolic CHF Current Visit: Yes Status: Acute Code(s): I50.30 - UNSPECIFIED DIASTOLIC ( CONGESTIVE) HEART FAILURE SNOMED Code(s): 123260548 Comment: -Likely cause of BLLE edema and diffuse ronchi; however will obtain doppler of LLE to make sure no VTE -Will obtain non-contrast CT of chest to eval pulmonary parenchyma -D/C Torsemide and place pt on IV Lasix BID, w/appropriate holding orders -Standing bed weights daily; no data since first measured; clarified w/staff -BNP increased from baseline -Last 2D echo this past January (2017) (3) Anemia Current Visit: No Status: Acute Priority: Medium Onset Date: 06/28/14 Code(s): D64.9 - ANEMIA, UNSPECIFIED SNOMED Code(s): 291190412 Comment: -Check ferritin to make sure no concomitant OH w/AOCD (4) Diabetes Current Visit: No Status: Acute Code(s): E11.9 - TYPE 2 DIABETES MELLITUS WITHOUT COMPLICATIONS SNOMED Code(s): 55820490 Comment: -Continue current regimen and watchful waiting (5) DVT prophylaxis Current Visit: No Status: Acute Priority: Medium Code(s): AUH0950 - SNOMED Code(s): 749289362 Comment: -Continue Lovenox SQ, low dose Status and Disposition: -For PT eval -Pt came from [facility]
[2018-03-16] MEDS: Lactobacillus Acidophilus* 1 TAB PO SCH (16:08)
[2018-03-16] MEDS: cefTRIAXone(*) 1 GM in NS 0.9% 50 ML* 50 ML IVPB SCH (16:55)
[2018-03-16] MEDS: Cyanocobalamin TAB* 500 MCG PO SCH (16:59)
[2018-03-16] MEDS: Saline NASAL SPRAY 0.65%* BTL BOTH NARES PRN (19:58)
[2018-03-16] MEDS: Furosemide IV* 10 MG/ML VIAL (40 MG) IV SCH (19:58)
[2018-03-16] MEDS: Melatonin 3 MG TAB PO PRN (20:01)
[2018-03-16] MEDS: Loperamide CAP* 2 MG PO PRN (20:25)
[2018-03-17] MEDS: Albuterol 2.5 MG/3 ML NEB.SOL* (0.083%) INH PRN ×2 (05:42→17:10)
[2018-03-17 07:15] LABS: Hematocrit 26 % (35-47); Hemoglobin 8.5 g/dl (12.0-16.0); Mean Corpuscular HGB Conc 33 g/dl (31-36); Mean Corpuscular Hemoglobin 30 pg (27-31); Mean Corpuscular Volume 91 fL (80-97); Mean Platelet Volume 9.4 fL (7.4-10.4); Platelet Count 142 10^3/ul (150-450); Red Blood Count 2.81 10^6/ul (4.00-5.40); Red Cell Distribution Width 16 % (10.5-15); White Blood Count 4.4 10^3/ul (3.5-10.8)
[2018-03-17 07:35] LABS: Albumin 2.4 g/dL (3.2-5.2); Albumin/Globulin Ratio 0.6 (1-3); BUN/Creatinine Ratio 23.2 (8-20); Calcium 6.9 mg/dL (8.6-10.3); EGFR African American 43.2 (>60); EGFR Non-African American 35.7 (>60); Globulin 3.7 g/dL (2-4); Magnesium 1.7 mg/dL (1.9-2.7); Phosphorus 3.2 mg/dL (2.5-5.0); Total Bilirubin 0.2 mg/dL (0.2-1.0); Total Protein 6.1 g/dL (6.4-8.9)
[2018-03-17] MEDS: Furosemide IV* 10 MG/ML VIAL (40 MG) IV SCH ×2 (07:43→22:29)
[2018-03-17] MEDS: Lisinopril TAB* 5 MG PO SCH (07:43)
[2018-03-17] MEDS: guaiFENesin ER TAB 600 MG PO SCH ×2 (07:43→22:29)
[2018-03-17] MEDS: Lactobacillus Acidophilus* 1 TAB PO SCH (07:43)
[2018-03-17] MEDS: Saline NASAL SPRAY 0.65%* BTL BOTH NARES PRN (07:43)
[2018-03-17] MEDS: Carvedilol TAB* 6.25 MG PO SCH ×2 (07:44→22:29)
[2018-03-17] MEDS: PARoxetine HCL TAB* 10 MG PO SCH (07:44)
[2018-03-17] MEDS: Pantoprazole TAB * 40 MG TAB PO SCH (07:44)
[2018-03-17] MEDS: Ferrous Sulfate TAB* 325 MG PO SCH (07:44)
[2018-03-17] MEDS: Atorvastatin* 20 MG TAB PO SCH (07:44)
[2018-03-17] MEDS: Levothyroxine TAB* 25 MCG TAB PO SCH (07:44)
[2018-03-17] MEDS: Aspirin 81 mg CHEW TAB* 81 MG TAB.CHEW PO SCH (07:44)
[2018-03-17] MEDS: IPRATROPIUM 0.03% BOTH NARES SCH ×2 (07:45→22:30)
[2018-03-17 08:13] LABS: Ferritin 348.8 ng/mL (11-307)
[2018-03-17] MEDS: Mometasone/Formoter 200/5 MDI INH SCH ×2 (08:23→19:53)
[2018-03-17] MEDS: Insulin ISOPH/REG 70/30 (*) 1 UNITS UNIT SUBCUT SCH ×2 (09:23→17:28)
[2018-03-17] MEDS ORDERED: Magnesium Sulfate IV* 3 GM in NS 0.9% 100 ML* 100 ML IVPB ONE (09:53)
[2018-03-17 12:11] LABS: Albumin 2.1 g/dL (3.4-4.7); Albumin/Globulin Ratio 0.57; Gamma Globulin 1.5 g/dL (0.6-1.6); Total Protein(PEP) 5.8 g/dL (6.3 - 7.9)
[2018-03-17] MEDS: Enoxaparin(*) 30 MG/0.3 ML SYR SUBCUT SCH (12:28)
[2018-03-17] MEDS: cefTRIAXone(*) 1 GM in NS 0.9% 50 ML* 50 ML IVPB SCH (15:21)
[2018-03-17] MEDS ORDERED: Metolazone TAB* 5 MG PO ONE ×2 (15:55→16:42)
--- NOTE | 2018-03-17 16:09 | PN ---
Subjective Date of Service: 03/17/18 Interval History: Pt seen and examined. Meds and labs reviewed. CC: Pt mentions she is not significantly better than yesterday and asks why she still has SOB. ROS: Denied CHAKRABORTY/dizziness, F/C, N/V, CP, SOB, increased cough, sputum production , abd pain, diarrhea, constipation, dysuria, myalgias, arthralgias, throat pain , and new skin lesions. The rest of the 14 point ROS are unremarkable. PHYSICAL EXAM: GEN APPEARANCE: Awake, not in acute distress HEENT: NC/AT, PERRLA, moist oral mucosa, (-) throat erythema NECK: Soft, supple, (-) cervical LAD, (-)JVD HEART: S1S2 WNL, RRR, No MRG CHEST: CTA, BL, GAE, (+)Ronchi and crackles ABD: Soft, ND/NT, NABS 4x Q EXT: No C/C/BLLE edema, Left>Right SKIN: Warm to touch PSYCH: No active psychosis, hallucinations, depression, SI/HI Family History: Unchanged from Admission - Father in his 70's mother in her 80's, both of heart disease Social History: Unchanged from Admission - Resident of [facility]. Quit smoking 40 yrs ago, no alcohol abuse. Son Daryl is her SDM. Past Medical History: Unchanged from Admission - TAVR, polyclonal gammopathy, CAD, COPD, RA, PUD, hypothyroid, HTN, PPM, gastric bypass, DM with retinopathy. Objective Active Medications: Albuterol (Ventolin 2.5 Mg/3 Ml Neb.Rivka*) 2.5 mg INH Q4HR PRN PRN Reason: SOB/WHEEZING Last Admin: 03/17/18 05:42 Dose: 2.5 mg Albuterol (Ventolin Hfa Inhaler*) 2 puff INH Q6H PRN PRN Reason: SHORTNESS OF BREATH Last Admin: 03/14/18 08:19 Dose: 2 puff Alprazolam (Xanax Tab*) 0.5 mg PO BID PRN PRN Reason: ANXIETY Last Admin: 03/16/18 07:56 Dose: 0.5 mg Aspirin (Aspirin 81 Mg Chew Tab*) 81 mg PO DAILY [facility] Last Admin: 03/17/18 07:44 Dose: 81 mg Atorvastatin Calcium (Lipitor*) 20 mg PO DAILY [facility] Last Admin: 03/17/18 07:44 Dose: 20 mg Carvedilol (Coreg Tab*) 12.5 mg PO BID [facility] Last Admin: 03/17/18 07:44 Dose: 12.5 mg Cyanocobalamin (Vitamin B12 Tab*) 500 mcg PO QPM [facility] Last Admin: 03/16/18 16:59 Dose: 500 mcg Dextrose (D50w Syringe 50 Ml*) 12.5 gm IV PUSH .FOR FS < 60 - SS PRN PRN Reason: FS < 60 Enoxaparin Sodium (Lovenox(*)) 30 mg SUBCUT Q24H [facility] Last Admin: 03/17/18 12:28 Dose: 30 mg Ferrous Sulfate (Ferrous Sulfate Tab*) 325 mg PO DAILY [facility] Last Admin: 03/17/18 07:44 Dose: 325 mg Furosemide (Lasix Iv*) 40 mg IV BID [facility] Last Admin: 03/17/18 07:43 Dose: 40 mg Guaifenesin (Mucinex*) 600 mg PO BID [facility] Last Admin: 03/17/18 07:43 Dose: 600 mg Ceftriaxone Sodium 1 gm/ (Sodium Chloride) 50 mls @ 200 mls/hr IVPB Q24H [facility] Last Admin: 03/17/18 15:21 Dose: 200 mls/hr Insulin Human Isoph/Insulin Regular (Humulin 70/30 (*)) 5 units SUBCUT 0800, 1700 [facility] Last Admin: 03/17/18 09:23 Dose: 5 units Ipratropium [place] (Ipratropium [place]) 2 spray BOTH NARES BID [facility] Last Admin: 03/17/18 07:45 Dose: Not Given Lactobacillus Rhamnosus (Lactobacillus Acidophilus*) 2 tab PO DAILY [facility] Stop: 03/24/18 14:59 Last Admin: 03/17/18 07:43 Dose: 2 tab Levothyroxine Sodium (Synthroid Tab*) 25 mcg PO DAILY [facility] Last Admin: 03/17/18 07:44 Dose: 25 mcg Lisinopril (Prinivil Tab*) 2.5 mg PO DAILY [facility] Last Admin: 03/17/18 07:43 Dose: 2.5 mg Loperamide HCl (Imodium Cap*) 2 mg PO .SEE DIRECTIONS PRN PRN Reason: DIARRHEA Last Admin: 03/16/18 20:25 Dose: 2 mg Melatonin (Melatonin) 3 mg PO BEDTIME PRN; Protocol PRN Reason: SLEEP Last Admin: 03/16/18 20:01 Dose: 3 mg Mometasone Furoate/Formoterol Fumar (Dulera 200/5 Mdi*) 2 puff INH BID [facility] Last Admin: 03/17/18 08:23 Dose: 2 puff Nitroglycerin (Nitroglycerin Tab 0.4 Mg*) 0.4 mg SL Q5M PRN PRN Reason: ANGINA Pantoprazole Sodium (Protonix Tab (Nf)) 40 mg PO DAILY [facility] Last Admin: 03/17/18 07:44 Dose: 40 mg Paroxetine HCl (Paxil Tab*) 10 mg PO DAILY [facility] Last Admin: 03/17/18 07:44 Dose: 10 mg Polyethylene Glycol/Electrolytes (Miralax*) 17 gm PO DAILY PRN PRN Reason: CONSTIPATION Sodium Chloride (Sodium Chloride 0.65% Nasal [place]*) 1 spray BOTH NARES Q4H PRN PRN Reason: CONGESTION Last Admin: 03/17/18 07:43 Dose: 1 spr Vital Signs - 8 hr 03/17/18 03/17/18 03/17/18 08:23 11:08 15:20 Temperature 97.6 F 98.6 F Pulse Rate 70 69 61 Respiratory 16 18 18 Rate Blood Pressure 145/60 153/56 (mmHg) O2 Sat by Pulse 95 98 98 Oximetry Oxygen Devices in Use Now: None Result Diagrams: 03/17/18 07:01 03/17/18 07:01 Additional Lab and Data: Laboratory Tests 03/14/18 03/15/18 03/15/18 23:01 08:15 08:15 Retic Count, Calc 1.0 Corrected Retic Count 0.5 POC Glucose (mg/dL) 155 H Iron 30 L TIBC 162 L % Saturation 19 Unsat Iron Binding < 147 Transferrin 116 L Vitamin B12 > 1450 H 03/15/18 03/15/18 08:25 11:59 Retic Count, Calc Corrected Retic Count POC Glucose (mg/dL) 165 H 157 H Iron TIBC % Saturation Unsat Iron Binding Transferrin Vitamin B12 Microbiology and Other Data: Microbiology NGTD Assess/Plan/Problems-Billing Assessment: 78 year old woman admitted with pneumonia from rehab facility, may also have element of CHF. - Patient Problems (1) Healthcare-associated pneumonia Current Visit: Yes Status: Acute Priority: High Code(s): J18.9 - PNEUMONIA , UNSPECIFIED ORGANISM SNOMED Code(s): 907951212 Comment: -Was on Zosyn, abx day #07/01, w/c was D/Cd on 03/16/18 -Blood Cx (03/11): (-); finalized -Rapid flu test (-) -C/W Rocephin, abx day#08/01 -Place on Lactobacillus spp -Obtain CT Chest, non-contrast (2) Diastolic CHF Current Visit: Yes Status: Acute Code(s): I50.30 - UNSPECIFIED DIASTOLIC ( CONGESTIVE) HEART FAILURE SNOMED Code(s): 714270698 Comment: -Pt reports no improvement of SOB despite better mentation and being less edematous -Will give one time dose of Metolazone for synergy given no improvement of BNP towards baseline -Weight improved compared to a few days ago when it was last checked since 03/12 -Likely cause of BLLE edema and diffuse ronchi; however will obtain doppler of LLE to make sure no VTE -BNP increased from baseline -Last 2D echo this past January (2017) -For ambulatory sats in AM (3) Anemia Current Visit: No Status: Acute Priority: Medium Onset Date: 06/28/14 Code(s): D64.9 - ANEMIA, UNSPECIFIED SNOMED Code(s): 724706100 Comment: -D/T AOCD -Continue supportive care and watchful waiting (4) Diabetes Current Visit: No Status: Acute Code(s): E11.9 - TYPE 2 DIABETES MELLITUS WITHOUT COMPLICATIONS SNOMED Code(s): 43523846 Comment: -Continue current regimen and watchful waiting (5) DVT prophylaxis Current Visit: No Status: Acute Priority: Medium Code(s): SAJ2571 - SNOMED Code(s): 887574602 Comment: -Continue Lovenox SQ, low dose Status and Disposition: -Magnesium levels replenished and will continue to follow -Appreciate PT input; continue current plan of care -Possible D/C in 1-2 days -For ambulatory sats in AM -Pt came from [facility]
[2018-03-17] MEDS: Albuterol HFA INHALER* 8 gm MDI INH PRN (16:36)
[2018-03-17] MEDS: Cyanocobalamin TAB* 500 MCG PO SCH (17:28)
[2018-03-17] MEDS: Melatonin 3 MG TAB PO PRN (22:29)
[2018-03-18] MEDS: ALPRAZolam TAB* 0.5 MG PO PRN (01:21)
[2018-03-18 07:51] LABS: ABS Basophils 0 10^3/ul (0-0.2); ABS Eosinophils 0.1 10^3/ul (0-0.6); ABS Lymphocytes 0.7 10^3/ul (1.0-4.8); ABS Monocytes 0.3 10^3/ul (0-0.8); ABS Neutrophils 2.8 10^3/ul (1.5-7.7); ABS Nucleated RBC 0 10^3/ul; Eosinophil % 2.8 %; Hematocrit 25 % (35-47); Hemoglobin 8.2 g/dl (12.0-16.0); Lymphocyte % 16.8 %; Mean Corpuscular HGB Conc 33 g/dl (31-36); Mean Corpuscular Hemoglobin 30 pg (27-31); Mean Corpuscular Volume 91 fL (80-97); Mean Platelet Volume 9.2 fL (7.4-10.4); Nucleated Red Blood Cells % 0.1; Platelet Count 145 10^3/ul (150-450); Red Blood Count 2.74 10^6/ul (4.00-5.40); Red Cell Distribution Width 16 % (10.5-15); White Blood Count 3.9 10^3/ul (3.5-10.8)
[2018-03-18 08:12] LABS: BUN/Creatinine Ratio 23.3 (8-20); Calcium 7.2 mg/dL (8.6-10.3); EGFR African American 46.6 (>60); EGFR Non-African American 38.5 (>60); Magnesium 1.9 mg/dL (1.9-2.7); Potassium 3.8 mmol/L (3.5-5.0)
[2018-03-18] MEDS: Insulin ISOPH/REG 70/30 (*) 1 UNITS UNIT SUBCUT SCH (09:17)
[2018-03-18] MEDS: Furosemide IV* 10 MG/ML VIAL (40 MG) IV SCH (09:18)
[2018-03-18] MEDS: Lisinopril TAB* 5 MG PO SCH (09:18)
[2018-03-18] MEDS: Lactobacillus Acidophilus* 1 TAB PO SCH (09:19)
[2018-03-18] MEDS: Atorvastatin* 20 MG TAB PO SCH (09:20)
[2018-03-18] MEDS: guaiFENesin ER TAB 600 MG PO SCH (09:20)
[2018-03-18] MEDS: Ferrous Sulfate TAB* 325 MG PO SCH (09:20)
[2018-03-18] MEDS: PARoxetine HCL TAB* 10 MG PO SCH (09:20)
[2018-03-18] MEDS: Carvedilol TAB* 6.25 MG PO SCH (09:20)
[2018-03-18] MEDS: Aspirin 81 mg CHEW TAB* 81 MG TAB.CHEW PO SCH (09:20)
[2018-03-18] MEDS: Levothyroxine TAB* 25 MCG TAB PO SCH (09:20)
[2018-03-18] MEDS: Pantoprazole TAB * 40 MG TAB PO SCH (09:21)
[2018-03-18] MEDS: Mometasone/Formoter 200/5 MDI INH SCH (09:33)
[2018-03-18] MEDS: Albuterol 2.5 MG/3 ML NEB.SOL* (0.083%) INH PRN (09:40)
[2018-03-18] MEDS ORDERED: Calcium Gluconate INJ* 1 GM in NS 0.9% 50 ML* 50 ML IVPB ONE (10:03)
[2018-03-18] MEDS: Loperamide CAP* 2 MG PO PRN (10:12)
[2018-03-18] MEDS: IPRATROPIUM 0.03% BOTH NARES SCH (11:20)
--- NOTE | 2018-03-18 13:50 | DS ---
CC: Dr. Sanchez; Dr. Francheska Delarosa; Dr. Audra Gimenez; Vanesa Alexandra NP * DISCHARGE SUMMARY: DATE OF ADMISSION: 03/12/18 DATE OF DISCHARGE: 03/18/18. DISCHARGE DIAGNOSES: As follows: 1. Healthcare-associated pneumonia. 2. Diastolic congestive heart failure exacerbation, improved. 3. Anemia of chronic disease, stable. 4. Diabetes mellitus, history of. DISCHARGE MEDICATIONS: As follows: 1. Albuterol nebulization 2.5 mg inhalation q.4 hours p.r.n. 2. Albuterol HFA 2 puffs inhalation q.6 hours p.r.n. 3. Alprazolam 0.5 mg p.o. t.i.d. 4. Aspirin 81 mg p.o. daily. 5. Carvedilol 12.5 mg p.o. b.i.d. 6. Cyanocobalamin 500 mcg p.o. q.p.m. 7. Ferrous sulfate 325 mg p.o. daily. 8. Guaifenesin 600 mg p.o. daily. 9. Ipratropium bromide to both nares b.i.d. 10. Lactobacillus acidophilus 2 tabs p.o. daily for 6 days. 11. Levothyroxine 25 mcg p.o. daily. 12. Lisinopril tab 2.5 mg p.o. daily. 13. Dulera 200/5 mcg MDI 2 puffs inhalation b.i.d. 14. Nitroglycerin tab 0.4 mg sublingual q.5 minutes p.r.n. 15. Pantoprazole 40 mg p.o. daily. 16. Paroxetine 10 mg p.o. daily. 17. Polyethylene glycol 17 g p.o. daily. 18. Saline nasal spray 1 spray to both nares q.4 hours p.r.n. 19. Simvastatin 40 mg p.o. daily. 20. Calcium carbonate 1000 mg p.o. b.i.d. 21. Cefdinir cap 300 mg p.o. b.i.d. for 3 more days. 22. Clonidine 0.1 mg p.o. b.i.d. 23. Diphenoxylate and atropine 1 tablet p.o. daily p.r.n. 24. Melatonin 3 mg p.o. at bedtime. 25. Metolazone 2.5 mg p.o. daily. 26. Sitagliptin 50 mg p.o. daily. 27. Tofacitinib citrate 5 mg p.o. b.i.d. 28. Torsemide 40 mg p.o. daily. HISTORY OF PRESENT ILLNESS/HOSPITAL COURSE: The patient is a 78-year-old lady with a history of rheumatoid arthritis, coronary artery disease as well as COPD, who was admitted on 03/11/18 due to patient having malaise, increased cough for 1 to 2 days as well as shortness of breath where the patient was diagnosed with healthcare-associated pneumonia as well as diastolic CHF that was found to be compensated on admission. She was placed on Zosyn, which has subsequently been narrowed to Rocephin. Her blood cultures were found to be negative, which has been finalized for 5 days and has been transitioned off Zosyn to Rocephin during her hospital course and will complete a 10-day treatment therapy for HCAP. During her evaluation, she was also found to have developed a diastolic CHF exacerbation and hence, the patient was diuresed with IV Lasix and was placed on metolazone. The doses prior to discharge has been lowered to 2.5 mg of metolazone and daily dose of torsemide, which has increased from 20 that she usually take to 40 today. She will also be placed on a sodium restriction diet on discharge and continue heart healthy and consistent carbohydrate diet when discharged. She had been advised to follow up and recall her PCP within 3 days post discharge. She had been advised that if her symptoms resume or develop new ones or feel unwell for any reason to call her PCP first and if her PCP cannot entertain her due to scheduling issues alone, she was advised to call [facility] if the issue is nonemergent. She was advised to call my office regarding any questions, concerns or further clarifications regarding her discharge plans and her prescriptions and to take her medications as prescribed. The patient also underwent ambulatory saturation at room air prior to discharge and was found to have a saturation of 96%. The patient's blood pressure medication has been titrated by adding clonidine given her baseline anxiety to help in her baseline anxiety as well as her blood pressure. REVIEW OF SYSTEMS: She denied any current headaches, dizziness, fevers, chills , nausea, vomiting, chest pain, shortness of breath, increased cough and/or sputum production, abdominal pain, diarrhea, constipation, pain and/or increased frequency on urination, myalgias or arthralgias, throat pain, or new skin lesions. The rest of the 14-point review of systems is otherwise unremarkable. PHYSICAL EXAMINATION: Reveals a most recent vital signs of records with blood pressure of 149/53 from 16 per minute respiratory rate, 60 beats per minute heart rate, and 97.3 degrees Fahrenheit. General Appearance: The patient is awake, not in acute distress. HEENT: Normocephalic, atraumatic. PERRLA. Extraocular muscles intact. Negative for icterus. Moist oral mucosa. Negative throat erythema. Neck is soft, supple with no cervical lymphadenopathy. No JVD. Heart: S1, S2 within normal limits. Regular rate and rhythm. No murmurs, rubs, or gallops. Chest: Positive bibasilar crackles , otherwise with good air entry. Abdomen is soft, nondistended, nontender. Normoactive bowel sounds x4 quadrants. Extremities: No cyanosis, clubbing with 1+ bilateral lower extremity edema, left side is slightly greater than right; the patient had been ruled out for DVT with a Doppler ultrasound done on . Psychiatric: No active psychosis, depression, suicidal or homicidal ideation. Skin is warm to touch. TIME SPENT: The total time spent evaluating the patient, reviewing pertinent data, and appropriate documentation is 65 minutes. [id number]/[facility] #: [id number] CESAR
[2018-03-18] MEDS: Enoxaparin(*) 30 MG/0.3 ML SYR SUBCUT SCH (14:54)
[2018-03-18 15:29] VITALS: BP 151/58
== END 2018-03-18 15:20 | DRG 193 ==
LOC: ED 10:31 → MED 13:33 → OBSVTOIN 03-12 12:00
PROVIDERS: ADMIT Internal Medicine; ATTEND Internal Medicine
DX: J18.9 Pneumonia, unspecified organism (principal); I50.31 Acute diastolic (congestive) heart failure; I13.0 Hypertensive heart and chronic kidney disease with heart failure and stage 1 through stage 4 chronic kidney disease, or unspecified chronic kidney disease; J44.9 Chronic obstructive pulmonary disease, unspecified; E11.22 Type 2 diabetes mellitus with diabetic chronic kidney disease; D69.6 Thrombocytopenia, unspecified; E11.319 Type 2 diabetes mellitus with unspecified diabetic retinopathy without macular edema; M06.9 Rheumatoid arthritis, unspecified; D63.1 Anemia in chronic kidney disease; I25.10 Atherosclerotic heart disease of native coronary artery without angina pectoris; N18.9 Chronic kidney disease, unspecified; E03.9 Hypothyroidism, unspecified; K27.9 Peptic ulcer, site unspecified, unspecified as acute or chronic, without hemorrhage or perforation; Z88.1 Allergy status to other antibiotic agents; Z88.5 Allergy status to narcotic agent; Z88.2 Allergy status to sulfonamides; Z79.84 Long term (current) use of oral hypoglycemic drugs; Z79.82 Long term (current) use of aspirin; Z79.51 Long term (current) use of inhaled steroids; Z79.899 Other long term (current) drug therapy; Z82.49 Family history of ischemic heart disease and other diseases of the circulatory system; Z87.891 Personal history of nicotine dependence; Z98.84 Bariatric surgery status
CPT/HCPCS: 36415; 71046; 71250; 80048; 80053; 80202; 82607; 82668; 82728; 83540; 83550; 83605; 83735; 83880; 84100; 84155; 84165; 84443; 85025; 85027; 85045; 87040; 87641; 94640; 99285; A9270-GY; G0378; J0610; J0696; J1650; J1940; J2543; J3370; J3475

== ENCOUNTER 2018-05-06 12:36 | Inpatient (IN) | payer MEDICARE, MEDICAID ==
[2018-05-06] MEDS ORDERED: NS 0.9% 1000 ML** 1,000 ML IV ONE ×3 (12:42→15:31)
--- NOTE | 2018-05-06 12:47 | ED ---
Altered Mental Status - HPI Summary HPI Summary: The patient is a 78 y/o F presenting to [facility] arriving by ambulance with a chief complaint of AMS with unresponsiveness [employer]. When EMS arrived, the patient , who was sitting her wheelchair, was not responsive, but she was alert to painful stimuli. When they lied her down on the stretcher, the patient became more alert and somewhat oriented. In the ambulance, blood glucose measured 481, she is ventricular paced with a pacemaker, and she was on 15L of O2 due to decreased O2 sat. She additionally c/o initial pain all over her body, but she is not currently in pain. She lives with family at home. Hx of diabetes. - History Of Current Complaint Stated Complaint: LOW BP Time Seen by Provider: 05/06/18 12:40 Hx Obtained From: Patient, EMS Onset/Duration: Still Present - patient is more responsive and alert, but not fully oriented at this time, Suddenly Timing: Lasting Minutes Severity Initially: Moderate Severity Currently: Mild Character: Responsiveness Aggravating Factor(s): Nothing Alleviating Factor(s): Nothing - Allergies/Home Medications Allergies/Adverse Reactions: Allergies Allergy/AdvReac Type Severity Reaction Status Date / Time codeine Allergy Rash Verified 05/06/18 12:42 levofloxacin [From Levaquin] Allergy Agitation Verified 05/06/18 12:42 Sulfa (Sulfonamide Allergy Hives Verified 05/06/18 12:42 Antibiotics) Home Medications: Home Medications Ascorbic Acid TAB* [Vitamin C TAB*] 500 mg PO DAILY 05/06/18 [History Confirmed 05/06/18] Victorino/D3/Mag11/Zinc/Contracts Advisor/Kulwant/Bor [Caltrate 600+D Plus] 1 tab PO BID 05/06/18 [ History Confirmed 05/06/18] Diclofenac 1% GEL (NF) [Voltaren 1% GEL (NF)] 1 applic TOPICAL BID PRN 05/06/18 [History Confirmed 05/06/18] Insulin NPH Hum/Reg Insulin Hm [Humulin 70/30 Kwikpen (70-30) 100 Unit/ml] 5 units SUBCUT BID AC 05/06/18 [History Confirmed 05/06/18] Ipratropium Br (Nf)0.03% Nasal [Ipratropium [place]] 2 spray BOTH NARES BID [History Confirmed 05/06/18] Metolazone TAB* [Zaroxolyn TAB*] 2.5 mg PO DAILY 05/06/18 [History Confirmed ] Simvastatin TAB(NF) [Zocor(NF)] 20 mg PO DAILY 05/06/18 [History Confirmed 05/06] Torsemide TAB* [Demadex*] 10 mg PO DAILY 05/06/18 [History Confirmed 05/06/18] PMH/Surg Hx/FS Hx/Imm Hx Endocrine/Hematology History: Reports: Hx Anticoagulant Therapy, Hx Blood Transfusions, Hx Diabetes, Hx Thyroid Disease, Hx Anemia, 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 Denies: Hx Systemic Lupus Erythematosus Cardiovascular History: Reports: Hx Angina, Hx Auto Implanted Cardiovert Defib, Hx Congestive Heart Failure, Hx Coronary Artery Disease, Hx Deep Vein Thrombosis - Man-made clot caused by nurse 40+ years ago, Hx Hypercholesterolemia, Hx Hypertension, Hx Pacemaker/ICD, Hx Valvular Heart Disease, Other Cardiovascular Problems/Disorders - Aortic valve replacement, bradycardia, cardiac catherization Denies: Hx Aneurysm, Hx Angioplasty, Hx Cardiac Arrest, Hx Cardiomegaly, Hx Congenital Heart Disease, Hx Embolism, Hx Myocardial Infarction, Hx Rheumatic Fever, Hx Syncope Respiratory History: Reports: Hx Asthma, Hx Chronic Obstructive Pulmonary Disease (COPD), Hx Pneumonia Denies: Hx Lung Cancer, Hx Sleep Apnea GI History: Reports: Hx Ulcer - Peptic ulcer disease, Other GI Disorders - gastric bypass Denies: Hx Gastroesophageal Reflux Disease History: Reports: Other Problems/Disorders - UTIs, CKD Denies: Hx Kidney Stones, Hx Renal Disease Musculoskeletal History: Reports: Hx Arthritis, Hx Rheumatoid Arthritis, Hx Back Problems, Hx Osteoporosis Denies: Hx Gout, Hx Orthopedic Injury Sensory History: Reports: Hx Contacts or Glasses, Hx Vision Problem Denies: Hx Cataracts, Hx Eye Injury, Hx Eye Prosthesis, Hx Deafness, Hx Hearing Aid, Hx Hearing Problem, Other Sensory Impairments Opthamlomology History: Reports: Hx Contacts or Glasses, Hx Vision Problem Denies: Hx Cataracts, Hx Eye Injury, Hx Eye Prosthesis, Other Sensory Impairments Neurological History: Reports: Hx Headaches Denies: Hx Dementia, Hx Developmental Delay, Hx Migraine, Hx Nerve Disease, Hx Seizures, Hx Spinal Cord Injury, Hx Transient Ischemic Attacks (TIA), Other Neuro Impairments/Disorders Psychiatric History: Reports: Hx Depression - Cancer History Cancer Type, Location and Year: Two sisters had breast cancer Hx Chemotherapy: No Hx Radiation Therapy: No - Surgical History Surgery Procedure, Year, and Place: Hysterectomy. Appendectomy. Tonsillectomy. Bilateral Knee Arthroscopy. Diabetic Retinopathy-eye surgery. GASTRIC BYPASS. Bilateral Cataract removal. Sinus Surgery. Florentin-en-y gastric bypass, 2007. Cholecystecomy 2009. Carpal Tunnel Surgery. Aortic Valve replacement, 2016, [facility] Hx Anesthesia Reactions: No - Immunization History Date of Tetanus Vaccine: utd Date of Influenza Vaccine: utd Infectious Disease History: Reports: Hx Clostridium Difficile - History Denies: Hx Hepatitis, Hx Human Immunodeficiency Virus (HIV), Hx of Known/ Suspected MRSA, Hx Shingles, Hx Tuberculosis, Hx Known/Suspected VRE, Hx Known/ Suspected VRSA, History Other Infectious Disease - Family History Known Family History: Positive: Cardiac Disease, Diabetes, Other - Breast Cancer - Social History Alcohol Use: None Hx Substance Use: No Substance Use Type: Reports: None Hx Tobacco Use: Yes - quit > 20 yrs ago Smoking Status (MU): Former Smoker Type: Cigarettes Have You Smoked in the Last Year: No Review of Systems Positive: Other - body aches Neurological: Other - unresponsiveness that has resolved All Other Systems Reviewed And Are Negative: Yes Physical Exam - Summary Physical Exam Summary: VITAL SIGNS: Reviewed. GENERAL: Patient is a well-developed and cachectic elderly female that seems ill. She is lying comfortable in the stretcher. Patient is not in any acute respiratory distress. HEAD AND FACE: No signs of trauma. No ecchymosis, hematomas or skull depressions. No sinus tenderness. EYES: PERRLA, EOMI x 2, No injected conjunctiva, no nystagmus. No photophobia. EARS: Hearing grossly intact. Ear canals and tympanic membranes are within normal limits. MOUTH: Oropharynx has dry oral mucosa but otherwise within normal limits. NECK: Supple, trachea is midline, no adenopathy, no JVD, no carotid bruit, no c- spine tenderness, neck with full ROM. No meningeal signs, no Kernig's or brudzinskis signs. CHEST: Symmetric, no tenderness at palpation LUNGS: Clear to auscultation bilaterally. No wheezing or crackles. CVS: Regular rate and rhythm, S1 and S2 present, no murmurs or gallops appreciated. ABDOMEN: Soft, non-tender. No signs of distention. No rebound no guarding, and no masses palpated. Bowel sounds are normal. EXTREMITIES: FROM in all major joints, no edema, no cyanosis or clubbing. NEURO: Alert but not oriented. No acute neurological deficits. Speech is normal and follows commands. SKIN: Dry and warm. Multiple skin hematomas. GCS: 14 Triage Information Reviewed: Yes Vital Signs Reviewed: Yes - [place] Coma Scale Best Eye Response: 4 - Spontaneous Best Motor Response: 6 - Obeys Commands Best Verbal Response: 4 - Confused Coma Scale Total: 14 Diagnostics - Laboratory Result Diagrams: 05/06/18 13:16 05/06/18 13:16 Lab Statement: Any lab studies that have been ordered have been reviewed, and results considered in the medical decision making process. - Radiology CXR Radiology Interpretation Completed By: Radiologist Summary of Radiographic Findings: COPD. ED physician has reviewed this report. - CT Brain CT CT Interpretation Completed By: Radiologist Summary of CT Findings: No acute intracranial pathology. Chronic small vessel ischemic change. ED physician has reviewed this report. - EKG 13:04 Cardiac Rate: NL - 65 BPM EKG Rhythm: Sinus Rhythm EKG Comparison: No Significant Change - Similar to 02/18/2018. Summary of EKG Findings: Ventricular paced. No ST elevations. Re-Evaluation - Re-Evaluation First Eval Re-Evaluation Time: 14:30 Change: Unchanged Comment: We discussed results and admission. Altered Mental Statu Course/Dx - Course Assessment/Plan: This patient is a 78-year-old female who presents to the emergency room via ambulance with a chief complaint of having an unresponsive episode. In the ED course the patient is alert and oriented. Test results shows a WBCs of 5.1, hemoglobin of 9.8, hematocrit of 29, platelets of 149, sodium of 134, potassium of 3.4, chloride of 95, carbon dioxide of 25, anion gap of 14, creatinine 1.72, glucose of 369, calcium of 7.1, albumin of 3, magnesium of 1.6. The corrected calcium is 7.9. Troponin is elevated to 0.07. Urinalysis is contaminated therefore we will send urine for culture. In the ED course the patient was given IV fluids since the patient seems to be very dry, she was given potassium and magnesium. Head CT impression: No acute pathology. Chronic small isnt ischemic changes. Chest x-ray impression: COPD. The patient was hydrated the patient reports that she is feeling better. At this time I discussed my physical exam and findings with Dr. Seo from the hospital services who accepted the patient for admission. - Diagnoses Differential Diagnosis/HQI/PQRI: CVA, Hypoglycemia, Hypoxia, Intracranial Bleed , Metabolic Disorder, Postictal State, Seizure, TIA Provider Diagnoses: Dehydration, Unresponsiveness, Elevated troponin - Provider Notifications Discussed Care Of Patient With: Maude Seo - hospitalist Time Discussed With Above Provider: 14:45 Instructed by Provider To: Other - I spoke with Dr. Seo, who accepts the patient for admission at this time. Discharge - Sign-Out/Discharge Documenting (check all that apply): Patient Departure - Patient will be admitted to [facility] for further care. Patient Received Moderate/Deep Sedation with Procedure: No - Discharge Plan Condition: Stable Disposition: ADMITTED TO [facility] - Billing Disposition and Condition Condition: STABLE Disposition: Admitted to [facility] - Attestation Statements Document Initiated by Mayra: Yes Documenting Scribe: Jessica Murillo Provider For Whom Mayra is Documenting (Include Credential): Dr. Tan Forbes MD Scribe Attestation: I, Jessica Murillo, scribed for Dr. Tan Forbes MD on 05/06/18 at 1804. Scribe Documentation Reviewed: Yes Provider Attestation: The documentation as recorded by the Jessica jc accurately reflects the service I personally performed and the decisions made by me, Dr. Tan Forbes MD Status of Scribe Document: Ready
[2018-05-06 13:44] LABS: INR 1.07 (0.77-1.02)
[2018-05-06 13:53] LABS: ABS Basophils 0 10^3/ul (0-0.2); ABS Eosinophils 0.1 10^3/ul (0-0.6); ABS Lymphocytes 0.2 10^3/ul (1.0-4.8); ABS Monocytes 0 10^3/ul (0-0.8); ABS Neutrophils 4.8 10^3/ul (1.5-7.7); ABS Nucleated RBC 0 10^3/ul; Anion Gap 14 mmol/L (2-11); CO2 Carbon Dioxide 25 mmol/L (22-32); Calcium 7.1 mg/dL (8.6-10.3); Chloride 95 mmol/L (101-111); Eosinophil % 1.1 %; Hematocrit 29 % (33-41); Hemoglobin 9.8 g/dL (12.0-16.0); Lymphocyte % 3.5 %; Magnesium 1.6 mg/dL (1.9-2.7); Mean Corpuscular HGB Conc 34 g/dL (31-36); Mean Corpuscular Hemoglobin 30 pg (27-31); Mean Corpuscular Volume 89 fL (80-97); Mean Platelet Volume 9.2 fL (7.4-10.4); Nucleated Red Blood Cells % 0.1; Platelet Count 149 10^3/uL (150-450); Potassium 3.4 mmol/L (3.5-5.0); Red Blood Count 3.28 10^6 /uL (3.70-4.87); Red Cell Distribution Width 16 % (10.5-15); Sodium 134 mmol/L (135-145); White Blood Count 5.1 10^3/uL (3.5-10.8)
[2018-05-06 13:57] LABS: Acetaminophen < 15 mcg/mL; Alcohol < 10 mg/dL (<10); Salicylate < 2.50 mg/dL (<30)
[2018-05-06 13:59] LABS: ALT 7 U/L (7-52); AST 20 U/L (13-39); Albumin/Globulin Ratio 0.7 (1-3); Alkaline Phosphatase 60 U/L (34-104); Creatine Kinase 66 U/L (10-223); EGFR African American 34.6 (>60); EGFR Non-African American 28.6 (>60); Globulin 4.4 g/dL (2-4); Glucose 369 mg/dL (70-100); Total Protein 7.4 g/dL (6.4-8.9)
[2018-05-06] MEDS ORDERED: Magnesium Sulfate 1 GM IV* 1 GM/100 ML BAG IV ONE ×2 (14:04→15:24)
[2018-05-06 14:44] LABS: BUN/Creatinine Ratio 79.7 (8-20); Blood Urea Nitrogen 137 mg/dL (6-24)
[2018-05-06] MEDS: KCL 10 MEQ/50 ML IVPREMIX* 10 MEQ/50 ML BAG IV SCH ×2 (14:47→19:08)
[2018-05-06 14:54] LABS: Troponin I 0.07 ng/mL (<0.04)
[2018-05-06] MEDS ORDERED: Magnesium Hydroxide LIQ* 30 ML UDC PO PRN (15:19)
[2018-05-06] MEDS ORDERED: Albuterol/Ipratropium NEB.SOL* Albuterol 2.5 MG/Ipratropium 0.5 MG 3 ML INH PRN (15:19)
[2018-05-06 15:25] LABS: Urine Appearance Cloudy; Urine Bacteria 1+ (Absent); Urine Bilirubin Negative (Negative); Urine Blood 2+ (Negative); Urine Color Yellow; Urine Glucose Negative (Negative); Urine Ketones Negative (Negative); Urine Nitrite Negative (Negative); Urine Protein 1+(30 mg/dL) (Negative); Urine Red Blood Cell 1+(3-5/hpf) (Absent); Urine Specific Gravity 1.009 (1.010-1.030); Urine Squamous Epithelial Cell Present (Absent); Urine Urobilinogen Negative (Negative); Urine White Blood Cell 3+(>20/hpf) (Absent)
[2018-05-06] MEDS ORDERED: DICLOFENAC 1% TOPICAL PRN (15:25)
[2018-05-06] MEDS ORDERED: Nitroglycerin TAB 0.4 MG* 0.4 MG TAB SL PRN (15:25)
[2018-05-06] MEDS ORDERED: Albuterol 2.5 MG/3 ML NEB.SOL* (0.083%) INH PRN (15:25)
[2018-05-06] MEDS ORDERED: NS 0.9% 1000 ML** 1,000 ML IV SCH (15:30)
[2018-05-06 15:34] LABS: TSH (Thyroid Stimulating Horm) 9.07 mcIU/mL (0.34-5.60)
[2018-05-06] MEDS ORDERED: Magnesium Sulfate 2 GM IV* 0 GM/0 ML BAG ONE (15:54)
[2018-05-06] MEDS ORDERED: Dextrose 50% Syringe 50 ML* 25 GM/50 ML SYRINGE IV PUSH PRN (16:09)
--- NOTE | 2018-05-06 17:29 | ECHO ---
Patient: LEATHA AMAYA [facility] Rec#: [id number] : 1940 Date: 05/06/2018 Age: 78y Height: 163 cm / 64.2 in Weight: 52.2 kg / 115.0 lbs Sex: F BSA: 1.55 Room#: [facility] Admit Date#: 05/06/2018 Type: Inpatient Referring: Sofia Esparza Reading: Jimmie Rosas MD Clinical Lab Clerk: Iman Rodriguez RDCS CC: Vanesa Alexandra NP CC: Andrew Lowry MD Transthoracic Echocardiogram Indication: Syncope BP: 95/50 HR: 60 Rhythm: Paced Findings History: S/P AV replacement 2016,s/p pacer insert,CHF,CAD,HLD,COPD,former smoker. Technical Comments: The study quality is good. Completed at 1700. Left Ventricle: The left ventricular chamber size is normal. The estimated ejection fraction is 30-35%. Post surgical hypokinesis of the interventricular septum is observed consistent with valve replacement. The assessment of diastolic function is non-diagnostic. Left Atrium: The left atrium is mildly dilated. Right Ventricle: The right ventricular cavity size is normal. The septum has abnormal paradoxical motion consistent with post-operative pressure. A pacemaker wire is visualized in the right ventricle. Right Atrium: The right atrial cavity size is normal. A pacemaker wire is visualized in the right atrium. Aortic Valve: There is a trace of aortic regurgitation. A bio-prosthetic aortic valve is present. and functioning normally. Mitral Valve: There is mitral annular calcification. There is mild mitral regurgitation. There is no evidence of mitral stenosis. Tricuspid Valve: The tricuspid valve leaflets are normal. There is mild to moderate tricuspid regurgitation. There is evidence of moderate pulmonary hypertension. There is no tricuspid stenosis. Pulmonic Valve: The pulmonic valve appears normal. There is no evidence of pulmonic regurgitation. There is no pulmonic stenosis. Pericardium: The pericardium appears normal. Aorta: There is no dilatation of the ascending aorta. There is no dilatation of the aortic arch. There is no dilation of the aortic root. Pulmonary Artery: The main pulmonary artery appears normal. Venous: The inferior vena cava appears normal in size. There is a greater than 50% respiratory change in the inferior vena cava dimension. Summary: There are changes noted when compared to the previous study done on PHTN is less now from severe then, otherwise no overt significant changes. Conclusions The left ventricular chamber size is normal. The estimated ejection fraction is 30-35%. Post surgical hypokinesis of the interventricular septum is observed consistent with valve replacement. The assessment of diastolic function is non-diagnostic. The left atrium is mildly dilated. A pacemaker wire is visualized in the right ventricle. A pacemaker wire is visualized in the right atrium. There is a trace of aortic regurgitation. A bio-prosthetic aortic valve is present. and functioning normally. There is mild mitral regurgitation. There is mild to moderate tricuspid regurgitation. There is evidence of moderate pulmonary hypertension. Measurements Name Value Normal Range RVIDd (AP) 2D 1.9 cm (0.9 - 2.6) RVDdMajor (2D) 3.3 cm (2.2 - 4.4) RAd ISD 4CH 4 cm (3.4 - 4.9) RA (A4C)W 3.8 cm (2.9 - 4.6) IVSd (2D) 0.9 cm (0.6 - 1) LVPWd (2D) 0.8 cm (0.6 - 1) LVIDd (2D) 3.9 cm (3.6 - 5.4) LVIDs (2D) 2.7 cm - LV FS (2D) 19 % (25 - 45) Aortic Annulus 2.2 cm (1.4 - 2.6) Ao root diameter (2D) 2.5 cm (2.1 - 3.5) Ascending Ao 3 cm (2.1 - 3.4) Aortic arch 2.3 cm (1.8 - 3.4) Descending Ao 0.3 cm - LA dimension (AP) 2D 4.1 cm (2.3 - 3.8) LAd ISD 4CH 4.7 cm (2.9 - 5.3) LA ISD 4CH W 4.1 cm (2.5 - 4.5) Name Value Normal Range LA ESV SP 2CH (A/L) 68 ml - Name Value Normal Range MV E-wave Vmax 1 m/sec - MV deceleration time 250 msec - MV A-wave Vmax 1 m/sec - MV E:A ratio 1 ratio - LV septal e' Vmax 0.04 m/sec - LV lateral e' Vmax 0.06 m/sec - LV E:e' septal ratio 25 ratio - LV E:e' lateral ratio 16.67 ratio - Name Value Normal Range AV Vmax 1.9 m/sec - AV VTI 39.5 cm - AV peak gradient 14 mmHg - AV mean gradient 7 mmHg - LVOT diameter 2.4 cm - LVOT Vmax 0.9 m/sec - LVOT VTI 17.1 cm - LVOT peak gradient 3 mmHg - LVOT mean gradient 2 mmHg - ITA (continuity Vmax) 2.1 cm2 - ITA (continuity VTI) 2 cm2 - AR PHT 647 msec - Name Value Normal Range MR Vmax 2.8 m/sec - MR VTI 97.7 cm - Name Value Normal Range TR Vmax 3.4 m/sec - TR peak gradient 46 mmHg - RAP 3 mmHg - RVSP 49 mmHg - IVC diameter 1.8 cm - Name Value Normal Range PV Vmax 0.7 m/sec - PV peak gradient 2 mmHg -
[2018-05-06] MEDS: Insulin LISPRO* 1 UNITS UNIT SUBCUT SCH ×2 (17:47→22:02)
[2018-05-06] MEDS: Insulin ISOPH/REG 70/30 (*) 1 UNITS UNIT SUBCUT SCH (17:47)
[2018-05-06] MEDS: cefTRIAXone(*) 1 GM in NS 0.9% 50 ML* 50 ML IVPB SCH (18:14)
--- NOTE | 2018-05-06 19:21 | HP ---
AMENDED REPORT NOW INCLUDES DESIGNATED COSIGNER CC: Vanesa Alexandra NP * ADMISSION HISTORY AND PHYSICAL: DATE OF ADMISSION: 05/06/18 PRIMARY CARE PROVIDER: Vanesa Alexandra NP ATTENDING FOR THIS ADMISSION: Dr. Maude Cano.* (DICTATED BY DANK AGUIRRE NP) CHIEF COMPLAINT: Unresponsiveness. HISTORY OF PRESENT ILLNESS: This is a 78-year-old female patient with multiple admissions over the past several months, with very complex past medical history. Today, she presents unresponsive with EMS. Per the emergency department report, the patient was found unresponsive and then when emergency personnel were placing her on the stretcher and transferring her to the ambulance, she began to awake, she was still confused, but she was opening her eyes and making some verbal responses. She was brought to the emergency department promptly where she remained alert. She was having some desaturation. She was placed on oxygen at 15 L. Blood glucose at that time was measured at 481 in the ambulance. The patient did not state she had any symptoms after she awoke. She appeared to not have any recollection of the events. She stated to me that she did not remember what happened. She does know that she is in the hospital now, but again no recollection of why she was initially brought in. The patient was also noted to have poor urine output. She had a Huynh catheter placed and was persistently oliguric with very dark urine. Blood pressure was normal initially upon evaluation; however, her systolic pressures are now in the 80s. For these reasons, we were asked to evaluate the patient for admission. PAST MEDICAL HISTORY: This patient does have a very significant medical history including severe COPD, multiple issues with pneumonia, history of TAVR, coronary artery disease, chronic heart failure with ejection fraction of 30% to 35%, polyclonal hypergammaglobulinemia, history of chronic anemia with frequent transfusions in the past, chronic atrial fibrillation, pacemaker/AICD implantation, severe GERD and peptic ulcer disease, CKD stage 3, rheumatoid arthritis, hypothyroidism, hypertension, hyperlipidemia, history of gastric bypass surgery in the past, diabetic retinopathy, and insulin-dependent diabetes mellitus. PAST SURGICAL HISTORY: Significant for hysterectomy, appendectomy, tonsillectomy, bilateral knee arthroscopies, eye surgery, gastric bypass, cataract removal, cholecystectomy, carpal tunnel surgery, TAVR. MEDICATIONS AT HOME: 1. Metolazone 2.5 mg p.o. daily. 2. Voltaren 1% gel topical 3 times a day as needed. 3. Mucinex 600 mg daily. 4. Ferrous sulfate 325 mg daily. 5. Vitamin C 500 mg daily. 6. Vitamin B12 500 mcg p.o. b.i.d. 7. Ventolin nebulizer 2.5 mg inhaled 4 times a day as needed. 8. Synthroid 25 mcg daily. 9. Ipratropium bromide 2 sprays both nares 2 times a day. 10. Pantoprazole 40 mg p.o. daily. 11. Nitroglycerin 0.4 mg sublingual q.5 minutes as needed. 12. Coreg 12.5 mg p.o. b.i.d. 13. Aspirin 81 mg daily. 14. NPH insulin 70/30 KwikPen, 5 units subcu 2 times a day before meals. 15. Lisinopril 2.5 mg p.o. daily. 16. Caltrate 600 plus D 1 tab p.o. b.i.d. 17. Tums 1000 mg p.o. b.i.d. 18. Torsemide 10 mg p.o. daily. 19. Simvastatin 20 mg daily. 20. Ventolin inhaler 2 puffs q.6 hours as needed. FAMILY HISTORY: Cardiac disease and diabetes in both parents. SOCIAL HISTORY: The patient does have a remote history of smoking greater than 20 years ago. Denies any alcohol use. Denies any illicit drug use. She does live with her son and grandchildren. REVIEW OF SYSTEMS: The patient is stating she feels very weak and fatigued, but she denies any headache. No fever, no chills. No shortness of breath, no chest pain. No abdominal pain, no nausea, no vomiting. No urinary complaints and no constitutional complaints. PHYSICAL EXAMINATION GENERAL: The patient is awake, somewhat confused, cachectic in appearance, but in no acute distress. VITAL SIGNS: Blood pressure 89/43, heart rate 61 and paced, respiratory rate 20 , O2 saturation 94% to 96% on room air, temperature was 97.8. HEENT: The patient is atraumatic, normocephalic. PERRLA. Anicteric sclerae. Oral mucosa is extremely dry. Tongue is midline. NECK: Supple, nontender. No JVD noted. No thyromegaly appreciated and no carotid bruit auscultated. LUNGS: Clear at the apices bilaterally, diminished at the bases. No rhonchi, rales noted. CARDIOVASCULAR: S1, S2 present. Rate and rhythm are currently regular. She is paced on telemetry with no ectopy noted. ABDOMEN: Soft, nontender, and nondistended. No organomegaly noted. Positive bowel sounds in all 4 quadrants. : She has a Huynh catheter draining a scant amount of what is now clear yellow urine. She has less than 30 mL in the Huynh bag. MUSCULOSKELETAL: There is no clubbing, no cyanosis. She has delayed cap refill and general weakness. NEUROLOGIC: No acute focal deficits or weakness noted; however, she is confused at times, but appears to be answering questions appropriately now and can make her needs known. PSYCHIATRIC: She is cooperative and appropriate. DIAGNOSTIC STUDIES/LAB DATA: WBCs 5.1, RBCs 3.28, hemoglobin 9.8, hematocrit 29, platelets 149. Sodium 134, potassium 3.4, chloride 95, anion gap 14, BUN 137, creatinine 1.72, GFR is 28.6, BUN/creatinine ratio is 79.7, glucose 369, lactic acid 3.0, calcium 7.1, magnesium 1.6. Bilirubin 0.40, AST 20, ALT 7, alk phos 60. Ammonia 48. Creatine kinase 66, troponin is 0.07. Total protein 7.4, albumin 3.0, globulin 4.4, albumin/globulin ratio is 0.7. TSH is 9.07. Arterial blood gas; pH of 7.51, pCO2 35, pO2 71, bicarb 28.7, O2 saturation 96.5 with a base excess of 4.9. INR is 1.07. Toxicology negative for salicylates, acetaminophen, or alcohol. Urinalysis shows yellow cloudy urine, pH of 5, specific gravity of 1.009, urine protein is 1+, negative for ketones, 2 + blood; negative for nitrites, bilirubin, urobilinogen; 3+ leukocyte esterase, 3+ wbc's, 1+ rbc's, squamous epithelial cells are present, and 1+ bacteria. Imaging: CAT scan of the brain shows no acute intracranial pathology and some chronic small vessel ischemic changes. Chest x-ray shows hyperinflation, but no consolidation or any other cardiopulmonary abnormality. She does have a prosthetic valve noted. IMPRESSION: This is a 78-year-old female patient with an extensive medical history, who presents to the emergency department today with EMS services initially unresponsive, etiology is unclear. PLAN: The patient has been admitted to telemetry service. 1. Unresponsiveness, now improving. In terms of her mentation, CAT scan has been completed and is negative above. Likely her mentation which is now improving may have been related to severe dehydration and/or adult failure to thrive. 2. Dehydration with oliguria. Per above, her fluid status is likely impacting her mentation. She has already received 2 L of normal saline. We will continue her on normal saline at 125 mL per hour. We have noted that her ejection fraction is between 30% and 35%. Her chest x-ray does not appear to show that she is fluid bound, so she is not in an exacerbation of her heart failure; however, with aggressive fluid management, we will monitor her closely for fluid overload. We will continue her normal cardiac meds for her heart failure and ischemic heart disease. 3. UTI. At this point, we will follow cultures. I have given her ceftriaxone empirically. We will continue to monitor for response. 4. History of type 2 diabetes with labile sugars. We have placed her back on her home insulin. We will check her sugars a.c. and h.s. We will also add lispro sliding scale as needed. 5. Hypotension, likely related to #2 above, dehydration. She also has an elevated lactic acid, but she does not appear to have a toxic or infectious source. Her lactic acidemia is likely secondary to her elevated blood sugar and severe dehydration. Currently, she is mentating more appropriately than she was at admission. Again, we will continue IV fluids. If we feel that she needs pressors at some point, we can address that if she has any further decompensation. We will hold her blood pressure medications for now. 6. History of GERD. We will continue her on pantoprazole. 7. Hypothyroidism. Her levothyroxine is very small dose and her TSH is over 9. We will increase her dose of Synthroid and continue to monitor her response. 8. History of chronic anemia, stable. 9. Chronic kidney disease, stage 3. Her creatinine is slightly above baseline ; however, her BUN is 137, again indicating severe dehydration. I expect to see her kidney function come back to her baseline, which is usually between 1.3 and 1.5 as she is rehydrated. 10. Elevated troponin. She had elevated troponins in the past. Given her severe dehydration, I think this is likely related to demand ischemia. She is not complaining of any chest pain or shortness of breath or any other anginal equivalents. We will trend troponin on the next value. If it is trending down , we will stop drawing that lab. 11. History of COPD. The patient will be maintained on her inhalers and nebulizers while she is hospitalized. 12. Hypomagnesemia and hypokalemia. Her electrolytes have been replaced. We will continue to monitor these. 13. Hypoalbuminemia. We will check a prealbumin. Her albumin currently is 3.0. Her weight is recorded at 115 pounds; however, she appears to be severely cachectic. My concern is that she has severe protein-calorie malnutrition. We have consulted Nutrition to see her as well as Social Work and also should consider Palliative Care consult. In the past, palliative care has been brought up and she seemed to have qualified at her last admission; however, I am not sure if there was any followup on this. We will ask Social Work to continue to help this manage her condition and when she is ready for discharge at that time to ensure that she is a safe discharge to home or if she will need other arrangements. The rest of the patient's course will be determined by further diagnostics, laboratories, and any other input from other providers as warranted during this admission. This plan of care has been discussed with Dr. Maude Cano, who is in agreement with the plan of care. TIME SPENT: An excess of 65 minutes interviewing the patient, evaluating her chart and previous admissions, and interfacing with ER staff. DANK AGUIRRE NP [id number]/CPS #: [id number] CESAR
[2018-05-06] MEDS: Calcium/Vitamin D TAB 250/125* TAB PO SCH (20:22)
[2018-05-06] MEDS: Cyanocobalamin TAB* 500 MCG PO SCH (20:22)
[2018-05-06] MEDS: Docusate CAP* 100 MG PO SCH (20:23)
[2018-05-06] MEDS: IPRATROPIUM BR 0.03% BOTH NARES SCH (20:38)
[2018-05-06] MEDS: Carvedilol TAB* 6.25 MG PO SCH (21:55)
[2018-05-07] MEDS: Levothyroxine TAB* 50 MCG TAB PO SCH (05:13)
[2018-05-07 05:15] LABS: ABS Basophils 0 10^3/ul (0-0.2); ABS Eosinophils 0.1 10^3/ul (0-0.6); ABS Lymphocytes 0.4 10^3/ul (1.0-4.8); ABS Monocytes 0.2 10^3/ul (0-0.8); ABS Neutrophils 4.3 10^3/ul (1.5-7.7); ABS Nucleated RBC 0 10^3/ul; Eosinophil % 2.1 %; Hematocrit 23 % (33-41); Hemoglobin 7.5 g/dL (12.0-16.0); Lymphocyte % 8.1 %; Mean Corpuscular HGB Conc 33 g/dL (31-36); Mean Corpuscular Hemoglobin 29 pg (27-31); Mean Corpuscular Volume 89 fL (80-97); Mean Platelet Volume 9.5 fL (7.4-10.4); Nucleated Red Blood Cells % 0; Platelet Count 125 10^3/uL (150-450); Red Blood Count 2.55 10^6 /uL (3.70-4.87); Red Cell Distribution Width 16 % (10.5-15); White Blood Count 5.1 10^3/uL (3.5-10.8)
[2018-05-07 05:35] LABS: Albumin 2.5 g/dL (3.2-5.2); Albumin/Globulin Ratio 0.7 (1-3); BUN/Creatinine Ratio 82.4 (8-20); EGFR African American 39.6 (>60); EGFR Non-African American 32.7 (>60); Globulin 3.5 g/dL (2-4); Magnesium 1.9 mg/dL (1.9-2.7); Total Bilirubin 0.3 mg/dL (0.2-1.0)
[2018-05-07 05:38] LABS: Calcium 6.2 mg/dL (8.6-10.3); Potassium 2.7 mmol/L (3.5-5.0)
[2018-05-07] MEDS: KCL 20 MEQ/100 ML IVPREMIX* 20 MEQ/100 ML BAG IV SCH ×2 (06:06→09:26)
[2018-05-07] MEDS ORDERED: NS 0.9% 500 ML* 500 ML IV ONE ×2 (07:55→08:16)
--- NOTE | 2018-05-07 08:04 | PN ---
Subjective Date of Service: 05/07/18 Interval History: Poor appetite, weak. Not SOB. Objective Active Medications: Acetaminophen (Tylenol Tab*) 650 mg PO Q4H PRN PRN Reason: FEVER/PAIN Albuterol (Ventolin 2.5 Mg/3 Ml Neb.Rivka*) 2.5 mg INH QID PRN PRN Reason: SHORTNESS OF BREATH Albuterol/Ipratropium (Duoneb (Albuterol 2.5 Mg/Ipratropium 0.5 Mg)) 1 neb INH [id number] AWAKE PRN PRN Reason: sob/wheexing Ascorbic Acid (Vitamin C Tab*) 500 mg PO DAILY [facility] Aspirin (Aspirin 81 Mg Chew Tab*) 81 mg PO DAILY [facility] Atorvastatin Calcium (Lipitor*) 10 mg PO DAILY [facility] Calcium/Vitamin D (Oscal D Tab 250/125*) 1 tab PO BID [facility] Last Admin: 05/06/18 20:22 Dose: 1 tab Carvedilol (Coreg Tab*) 12.5 mg PO BID [facility] Last Admin: 05/06/18 21:55 Dose: Not Given Cyanocobalamin (Vitamin B12 Tab*) 500 mcg PO BID [facility] Last Admin: 05/06/18 20:22 Dose: 500 mcg Dextrose (D50w Syringe 50 Ml*) 12.5 gm IV PUSH .FOR FS < 60 - SS PRN PRN Reason: FS < 60 Diclofenac Sodium (Voltaren 1% Gel (Nf)) 1 applic TOPICAL BID PRN; Protocol PRN Reason: PAIN Docusate Sodium (Colace Cap*) 100 mg PO BID [facility] Last Admin: 05/06/18 20:23 Dose: 100 mg Ferrous Sulfate (Ferrous Sulfate Tab*) 325 mg PO DAILY [facility] Guaifenesin (Mucinex*) 600 mg PO DAILY [facility] Ceftriaxone Sodium 1 gm/ (Sodium Chloride) 50 mls @ 200 mls/hr IVPB Q24H [facility] Last Admin: 05/06/18 18:14 Dose: 200 mls/hr Potassium Chloride (Potassium Chloride 20 Meq/100 Ml Ivpremix*) 20 meq in 100 mls @ 50 mls/hr IV Q2H [facility] Stop: 05/07/18 11:59 Last Admin: 05/07/18 06:06 Dose: 50 mls/hr Sodium Chloride (Ns 0.9% 500 Ml*) 500 mls @ 100 mls/hr IV ONCE ONE Stop: 05/07/18 12:54 Insulin Human Isoph/Insulin Regular (Humulin 70/30 (*)) 5 units SUBCUT BID AC [facility] Last Admin: 05/06/18 17:47 Dose: 5 units Insulin Human Lispro (Humalog*) 0 units SUBCUT ACHS [facility]; Protocol Last Admin: 05/06/18 22:02 Dose: 3 units Ipratropium [place] (Ipratropium [place]) 2 spray BOTH NARES BID [facility] Last Admin: 05/06/18 20:38 Dose: Not Given Levothyroxine Sodium (Synthroid Tab*) 50 mcg PO DAILY@0600 [facility] Last Admin: 05/07/18 05:13 Dose: 50 mcg Magnesium Hydroxide (Milk Of Magnesia Liq*) 30 ml PO Q4H PRN PRN Reason: CONSTIPATION Nitroglycerin (Nitroglycerin Tab 0.4 Mg*) 0.4 mg SL Q5M PRN PRN Reason: ANGINA Pantoprazole Sodium (Protonix Tab*) 40 mg PO DAILY [facility] Potassium Chloride (Klor Con Er Tab*) 20 meq PO TID [facility] Vital Signs - 8 hr 05/07/18 05/07/18 05/07/18 03:06 07:53 07:57 Temperature 97.0 F 97.2 F Pulse Rate 61 68 Respiratory 16 16 Rate Blood Pressure 95/25 100/38 (mmHg) O2 Sat by Pulse 99 100 Oximetry Oxygen Devices in Use Now: None Appearance: Alert, partly up in bed. In fair spirits, appears weak but comfortable. Respiratory: Symmetrical Chest Expansion and Respiratory Effort, Clear to Auscultation, Clear to Percussion Cardiovascular: NL Sounds; No Murmurs; No JVD, RRR, No Edema, - Extremities: No Edema, No Clubbing, Cyanosis, - - Temporal wasting, diffuse muscle wasting. Skin: No Rash or Ulcers, No Nodules or Sclerosis, - Neurological: Alert and Oriented x 3, NL Sensation Result Diagrams: 05/07/18 04:56 05/07/18 04:56 Assess/Plan/Problems-Billing Assessment: - Patient Problems (1) Failure to thrive Current Visit: Yes Status: Acute Code(s): AOC4966 - SNOMED Code(s): 28673587 Comment: Not clear if due to meds (i.e dehydration from diuretics), hypothyroidism, depression, other factors. (2) CKD (chronic kidney disease) Current Visit: No Status: Acute Code(s): N18.9 - CHRONIC KIDNEY DISEASE, UNSPECIFIED SNOMED Code(s): 438940269 Comment: Est GFR 32.7 05/07/18. Needs more re-hydration. (3) Anemia Current Visit: No Status: Acute Priority: Medium Onset Date: 06/28/14 Code(s): D64.9 - ANEMIA, UNSPECIFIED SNOMED Code(s): 408398024 Comment: ACD. 1 U PRBC's ordered. CBC 05/08. (4) Severe malnutrition Current Visit: Yes Status: Acute Code(s): E43 - UNSPECIFIED SEVERE PROTEIN- CALORIE MALNUTRITION SNOMED Code(s): 82453815 Comment: Low albumin, prealbumin, marked muscle wasting, BMI 16.5, poor appetite. Repeat prealbumin. Ensure tid ordered in her favorite flavor. (5) Hypocalcemia Current Visit: No Status: Acute Code(s): E83.51 - HYPOCALCEMIA SNOMED Code (s): 8435203 Comment: Start vit D3 and calcium 05/07/18. Ionized calcium low in the past. (6) Hypokalemia Current Visit: Yes Status: Acute Code(s): E87.6 - HYPOKALEMIA SNOMED Code( s): 68380694 Comment: Potassium po start 05/07, BMP 05/08. (7) CAD (coronary artery disease) Current Visit: No Status: Chronic Code(s): I25.10 - ATHSCL HEART DISEASE OF [place] CORONARY ARTERY W/O ANG PCTRS SNOMED Code(s): 26319253 Comment: Continue statin, BB, ASA. Note ischemic cardiomyopathy with LVEF 30 -35% on 05/06/18. (8) COPD (chronic obstructive pulmonary disease) Current Visit: No Status: Acute Code(s): J44.9 - CHRONIC OBSTRUCTIVE PULMONARY DISEASE, UNSPECIFIED SNOMED Code(s): 11198932 Comment: -Continue Albuterol prn, guaifenesin. (9) Diabetes Current Visit: No Status: Acute Code(s): E11.9 - TYPE 2 DIABETES MELLITUS WITHOUT COMPLICATIONS SNOMED Code(s): 94151859 Comment: -Continue /30 5 U bid plu SSI. (10) Hypothyroid Current Visit: No Status: Chronic Code(s): E03.9 - HYPOTHYROIDISM, UNSPECIFIED SNOMED Code(s): 55017534 Comment: Levothyroxine increased to 50 mcg/d on 05/07. Repeat TSH later.
[2018-05-07] MEDS ORDERED: Metolazone TAB* 5 MG PO SCH (09:00)
[2018-05-07] MEDS ORDERED: Calcium Carbonate CHEW TAB* 500 MG (TUMS) PO SCH (09:00)
[2018-05-07] MEDS ORDERED: Levothyroxine TAB* 25 MCG TAB PO SCH (09:00)
[2018-05-07] MEDS ORDERED: Pantoprazole TAB * 40 MG TAB PO SCH (09:00)
[2018-05-07] MEDS ORDERED: Torsemide TAB* 20 MG PO SCH (09:00)
[2018-05-07] MEDS: Insulin ISOPH/REG 70/30 (*) 1 UNITS UNIT SUBCUT SCH ×2 (09:24→17:31)
[2018-05-07] MEDS: Cholecalciferol TAB* 1000 UNITS PO SCH (09:24)
[2018-05-07] MEDS: Insulin LISPRO* 1 UNITS UNIT SUBCUT SCH ×4 (09:24→21:34)
[2018-05-07] MEDS: Carvedilol TAB* 6.25 MG PO SCH ×2 (09:24→21:26)
[2018-05-07] MEDS: Calcium Citrate TAB* 200 MG PO SCH ×2 (09:24→21:25)
[2018-05-07] MEDS: Atorvastatin* 10 MG TAB PO SCH (09:24)
[2018-05-07] MEDS: Ferrous Sulfate TAB* 325 MG PO SCH (09:25)
[2018-05-07] MEDS: guaiFENesin ER TAB 600 MG PO SCH (09:25)
[2018-05-07] MEDS: Potassium Chlor TAB* 20 MEQ TAB.ER PO SCH ×3 (09:25→21:26)
[2018-05-07] MEDS: Docusate CAP* 100 MG PO SCH ×2 (09:25→21:27)
[2018-05-07] MEDS: Cyanocobalamin TAB* 500 MCG PO SCH ×2 (09:25→21:27)
[2018-05-07] MEDS: IPRATROPIUM BR 0.03% BOTH NARES SCH ×2 (09:25→21:34)
[2018-05-07] MEDS: Ascorbic Acid TAB* 500 MG PO SCH (09:25)
[2018-05-07] MEDS: Aspirin 81 mg CHEW TAB* 81 MG TAB.CHEW PO SCH (09:25)
[2018-05-07] MEDS: Calcium/Vitamin D TAB 250/125* TAB PO SCH ×2 (09:25→21:27)
[2018-05-07] MEDS: Acetaminophen TAB* 325 MG PO PRN (11:22)
[2018-05-07] MEDS: cefTRIAXone(*) 1 GM in NS 0.9% 50 ML* 50 ML IVPB SCH (17:31)
[2018-05-07] MEDS ORDERED: Melatonin 3 MG TAB PO ONE (23:27)
[2018-05-08 05:14] LABS: ABS Basophils 0 10^3/ul (0-0.2); ABS Eosinophils 0.2 10^3/ul (0-0.6); ABS Lymphocytes 0.3 10^3/ul (1.0-4.8); ABS Monocytes 0.2 10^3/ul (0-0.8); ABS Neutrophils 3.8 10^3/ul (1.5-7.7); ABS Nucleated RBC 0 10^3/ul; Eosinophil % 3.7 %; Hematocrit 27 % (33-41); Hemoglobin 9.2 g/dL (12.0-16.0); Lymphocyte % 7.3 %; Mean Corpuscular HGB Conc 33 g/dL (31-36); Mean Corpuscular Hemoglobin 29 pg (27-31); Mean Corpuscular Volume 88 fL (80-97); Mean Platelet Volume 9.2 fL (7.4-10.4); Nucleated Red Blood Cells % 0.1; Platelet Count 107 10^3/uL (150-450); Red Blood Count 3.12 10^6 /uL (3.70-4.87); Red Cell Distribution Width 17 % (10.5-15); White Blood Count 4.6 10^3/uL (3.5-10.8)
[2018-05-08 05:30] LABS: BUN/Creatinine Ratio 92.3 (8-20); Calcium 6.7 mg/dL (8.6-10.3); EGFR African American 47.8 (>60); EGFR Non-African American 39.5 (>60); Potassium 3.8 mmol/L (3.5-5.0)
[2018-05-08] MEDS: Levothyroxine TAB* 50 MCG TAB PO SCH (05:33)
[2018-05-08] MEDS: Insulin ISOPH/REG 70/30 (*) 1 UNITS UNIT SUBCUT SCH ×2 (08:31→16:30)
[2018-05-08] MEDS: Insulin LISPRO* 1 UNITS UNIT SUBCUT SCH ×4 (08:32→21:29)
[2018-05-08] MEDS: Carvedilol TAB* 6.25 MG PO SCH ×2 (08:36→21:25)
[2018-05-08] MEDS: Ferrous Sulfate TAB* 325 MG PO SCH (08:36)
[2018-05-08] MEDS: Docusate CAP* 100 MG PO SCH ×2 (08:36→21:28)
[2018-05-08] MEDS: Ascorbic Acid TAB* 500 MG PO SCH (08:36)
[2018-05-08] MEDS: Potassium Chlor TAB* 20 MEQ TAB.ER PO SCH ×2 (08:36→11:23)
[2018-05-08] MEDS: Calcium Citrate TAB* 200 MG PO SCH ×2 (08:36→21:28)
[2018-05-08] MEDS: Cholecalciferol TAB* 1000 UNITS PO SCH (08:36)
[2018-05-08] MEDS: Calcium/Vitamin D TAB 250/125* TAB PO SCH ×2 (08:37→21:28)
[2018-05-08] MEDS: Atorvastatin* 10 MG TAB PO SCH (08:37)
[2018-05-08] MEDS: guaiFENesin ER TAB 600 MG PO SCH (08:37)
[2018-05-08] MEDS: Cyanocobalamin TAB* 500 MCG PO SCH ×2 (08:37→21:29)
[2018-05-08] MEDS: Aspirin 81 mg CHEW TAB* 81 MG TAB.CHEW PO SCH (08:37)
--- NOTE | 2018-05-08 08:43 | PN ---
Subjective Interval History: No new c/o. Appetite fair. Walked in her room only so far. No BM since admission. Objective Active Medications: Acetaminophen (Tylenol Tab*) 650 mg PO Q4H PRN PRN Reason: FEVER/PAIN Last Admin: 05/07/18 11:22 Dose: 650 mg Albuterol (Ventolin 2.5 Mg/3 Ml Neb.Rivka*) 2.5 mg INH QID PRN PRN Reason: SHORTNESS OF BREATH Albuterol/Ipratropium (Duoneb (Albuterol 2.5 Mg/Ipratropium 0.5 Mg)) 1 neb INH [id number] AWAKE PRN PRN Reason: sob/wheexing Ascorbic Acid (Vitamin C Tab*) 500 mg PO DAILY [facility] Last Admin: 05/08/18 08:36 Dose: 500 mg Aspirin (Aspirin 81 Mg Chew Tab*) 81 mg PO DAILY [facility] Last Admin: 05/08/18 08:37 Dose: 81 mg Atorvastatin Calcium (Lipitor*) 10 mg PO DAILY [facility] Last Admin: 05/08/18 08:37 Dose: 10 mg Calcium Citrate (Citracal Tab*) 200 mg PO BID [facility] Last Admin: 05/08/18 08:36 Dose: 200 mg Calcium/Vitamin D (Oscal D Tab 250/125*) 1 tab PO BID [facility] Last Admin: 05/08/18 08:37 Dose: 1 tab Carvedilol (Coreg Tab*) 12.5 mg PO BID [facility] Last Admin: 05/08/18 08:36 Dose: 12.5 mg Cholecalciferol (Vitamin D Tab*) 2,000 units PO DAILY [facility] Last Admin: 05/08/18 08:36 Dose: 2,000 units Cyanocobalamin (Vitamin B12 Tab*) 500 mcg PO BID [facility] Last Admin: 05/08/18 08:37 Dose: 500 mcg Dextrose (D50w Syringe 50 Ml*) 12.5 gm IV PUSH .FOR FS < 60 - SS PRN PRN Reason: FS < 60 Diclofenac Sodium (Voltaren 1% Gel (Nf)) 1 applic TOPICAL BID PRN; Protocol PRN Reason: PAIN Docusate Sodium (Colace Cap*) 100 mg PO BID [facility] Last Admin: 05/08/18 08:36 Dose: 100 mg Ferrous Sulfate (Ferrous Sulfate Tab*) 325 mg PO DAILY [facility] Last Admin: 05/08/18 08:36 Dose: 325 mg Guaifenesin (Mucinex*) 600 mg PO DAILY [facility] Last Admin: 05/08/18 08:37 Dose: 600 mg Ceftriaxone Sodium 1 gm/ (Sodium Chloride) 50 mls @ 200 mls/hr IVPB Q24H [facility] Last Admin: 05/07/18 17:31 Dose: 200 mls/hr Insulin Human Isoph/Insulin Regular (Humulin 70/30 (*)) 8 units SUBCUT BID AC [facility] Insulin Human Lispro (Humalog*) 0 units SUBCUT ACHS [facility]; Protocol Last Admin: 05/08/18 08:32 Dose: 1 units Ipratropium [place] (Ipratropium [place]) 2 spray BOTH NARES BID [facility] Last Admin: 05/07/18 21:34 Dose: Not Given Levothyroxine Sodium (Synthroid Tab*) 50 mcg PO DAILY@0600 [facility] Last Admin: 05/08/18 05:33 Dose: 50 mcg Magnesium Hydroxide (Milk Of Magnesia Liq*) 30 ml PO Q4H PRN PRN Reason: CONSTIPATION Nitroglycerin (Nitroglycerin Tab 0.4 Mg*) 0.4 mg SL Q5M PRN PRN Reason: ANGINA Potassium Chloride (Klor Con Er Tab*) 20 meq PO TID [facility] Last Admin: 05/08/18 08:36 Dose: 20 meq s Vital Signs - 8 hr 05/08/18 05/08/18 05/08/18 04:18 07:15 07:34 Temperature 97.3 F 97.0 F Pulse Rate 63 60 Respiratory 16 16 18 Rate Blood Pressure 129/41 104/38 (mmHg) O2 Sat by Pulse 97 96 Oximetry Oxygen Devices in Use Now: None Appearance: Alert, supine in bed. In fair spirits. Looks uncomfortable. Eyes: No Scleral Icterus Extremities: No Edema, No Clubbing, Cyanosis, - - marked sarcopenia Skin: No Rash or Ulcers, No Nodules or Sclerosis, - Neurological: Alert and Oriented x 3, NL Sensation - Nutrition: Malnutrition Diagnosis/Plan Malnutrition Assessment by Registered Dietitian: Malnutrition Assessment Clinical Characteristics Chronic,Severe Malnutrition Assessment: < or = 75% energy needs x > or = 1 mo Criteria severe wt loss: 11% x 2 mos (>7.5% x 3 mos) temporal wasting Malnutrition Assessment: strawberry Glucerna with meals per provider Interventions order (ordered Ensure, but will send Glucerna given hx DM and hyperglycemia): 220 kcal, 10 g pro per serving Malnutrition Assessment: Goals 1. PO will improve to at least 50% of meals, with >50% acceptance of oral supplements 2. BG control will improve with appropriate insulin regimen (goal <180) 3. K+ will improve with repletion Result Diagrams: 05/08/18 04:57 05/08/18 04:57 Microbiology and Other Data: Microbiology 05/06/18 14:40 Urine Culture - Final Urine Escherichia Coli Normal Nelsy 05/06/18 14:40 Aerobic Blood Culture - Preliminary Blood Venous No Growth Day 1 Anaerobic Blood Culture - Preliminary No Growth Day 1 05/06/18 14:35 Aerobic Blood Culture - Preliminary Blood Venous No Growth Day 1 Anaerobic Blood Culture - Preliminary No Growth Day 1 Assess/Plan/Problems-Billing Assessment: - Patient Problems (1) Failure to thrive Current Visit: Yes Status: Acute Code(s): USN7131 - SNOMED Code(s): 05238884 Comment: Not clear if due to meds (i.e dehydration from diuretics), hypothyroidism, depression, other factors. Her home metolazone and torsemide have been held. IV fluids as below. (2) CKD (chronic kidney disease) Current Visit: No Status: Acute Code(s): N18.9 - CHRONIC KIDNEY DISEASE, UNSPECIFIED SNOMED Code(s): 305625267 Comment: Est GFR up to 39.5 on 05/08/18, about her baseline. BUN falling slowly, still very high. Another bolus NS 500 ml on 05/08, BMP and Mg++ on . Note US kidneys showed renal artery calcifications but no hydro or stones. (3) Anemia Current Visit: No Status: Acute Priority: Medium Onset Date: 06/28/14 Code(s): D64.9 - ANEMIA, UNSPECIFIED SNOMED Code(s): 962244779 Comment: ACD. 1 U PRBC's given 05/07. Hgb 9.2 on CBC 05/08. (4) Severe malnutrition Current Visit: Yes Status: Acute Code(s): E43 - UNSPECIFIED SEVERE PROTEIN- CALORIE MALNUTRITION SNOMED Code(s): 20698085 Comment: Low albumin, prealbumin, marked sarcopenia, BMI 16.5, poor appetite. Drank some strawberry glucerna. (5) Hypocalcemia Current Visit: No Status: Acute Code(s): E83.51 - HYPOCALCEMIA SNOMED Code (s): 4908359 Comment: Started vit D3 and calcium citrate on 05/07/18. Ionized calcium low in the past. Ca++ 6.7 on 05/08/18. (6) Hypokalemia Current Visit: Yes Status: Acute Code(s): E87.6 - HYPOKALEMIA SNOMED Code( s): 79346661 Comment: Potassium 3.8 on 05/08/18, reduce oral KCL to 20 meq daily, start . (7) CAD (coronary artery disease) Current Visit: No Status: Chronic Code(s): I25.10 - ATHSCL HEART DISEASE OF [place] CORONARY ARTERY W/O ANG PCTRS SNOMED Code(s): 05974762 Comment: Continue statin, BB, ASA. Note ischemic cardiomyopathy with LVEF 30 -35% on 05/06/18. (8) COPD (chronic obstructive pulmonary disease) Current Visit: No Status: Acute Code(s): J44.9 - CHRONIC OBSTRUCTIVE PULMONARY DISEASE, UNSPECIFIED SNOMED Code(s): 59639559 Comment: -Continue Albuterol prn, guaifenesin. (9) Diabetes Current Visit: No Status: Acute Code(s): E11.9 - TYPE 2 DIABETES MELLITUS WITHOUT COMPLICATIONS SNOMED Code(s): 76099111 Comment: Increase 70/30 to 8 U bid on 05/08/18, continue SSI. If she eats more, may need further adjustments in insulin tx. (10) Hypothyroid Current Visit: No Status: Chronic Code(s): E03.9 - HYPOTHYROIDISM, UNSPECIFIED SNOMED Code(s): 01491327 Comment: Levothyroxine increased to 50 mcg/d on 05/07. Repeat TSH later.
[2018-05-08] MEDS ORDERED: NS 0.9% 500 ML* 500 ML IV ONE (08:48)
[2018-05-08] MEDS: IPRATROPIUM BR 0.03% BOTH NARES SCH ×2 (11:23→21:25)
[2018-05-08] MEDS: cefTRIAXone(*) 1 GM in NS 0.9% 50 ML* 50 ML IVPB SCH (16:30)
[2018-05-09] MEDS: Levothyroxine TAB* 50 MCG TAB PO SCH (05:02)
[2018-05-09 05:54] LABS: BUN/Creatinine Ratio 88.4 (8-20); EGFR African American 51.9 (>60); EGFR Non-African American 42.9 (>60); Magnesium 1.9 mg/dL (1.9-2.7); Potassium 3.9 mmol/L (3.5-5.0)
--- NOTE | 2018-05-09 09:12 | PN ---
Subjective Date of Service: 05/09/18 Interval History: reports that she would like to return home, states that she is feeling better to day. was able to ambulate to the bathroom with nursing staff. patient alert and oriented x 3. denies fever or chills, denies chest pain or shortness of breath . denies abd pain n/v/d. Family History: Unchanged from Admission Social History: Unchanged from Admission Past Medical History: Unchanged from Admission Objective Active Medications: Acetaminophen (Tylenol Tab*) 650 mg PO Q4H PRN PRN Reason: FEVER/PAIN Last Admin: 05/07/18 11:22 Dose: 650 mg Albuterol (Ventolin 2.5 Mg/3 Ml Neb.Rivka*) 2.5 mg INH QID PRN PRN Reason: SHORTNESS OF BREATH Albuterol/Ipratropium (Duoneb (Albuterol 2.5 Mg/Ipratropium 0.5 Mg)) 1 neb INH [id number] AWAKE PRN PRN Reason: sob/wheexing Ascorbic Acid (Vitamin C Tab*) 500 mg PO DAILY [facility] Last Admin: 05/08/18 08:36 Dose: 500 mg Aspirin (Aspirin 81 Mg Chew Tab*) 81 mg PO DAILY [facility] Last Admin: 05/08/18 08:37 Dose: 81 mg Atorvastatin Calcium (Lipitor*) 10 mg PO DAILY [facility] Last Admin: 05/08/18 08:37 Dose: 10 mg Calcium Citrate (Citracal Tab*) 200 mg PO BID [facility] Last Admin: 05/08/18 21:28 Dose: 200 mg Calcium/Vitamin D (Oscal D Tab 250/125*) 1 tab PO BID [facility] Last Admin: 05/08/18 21:28 Dose: 1 tab Carvedilol (Coreg Tab*) 12.5 mg PO BID [facility] Last Admin: 05/08/18 21:25 Dose: 12.5 mg Cholecalciferol (Vitamin D Tab*) 2,000 units PO DAILY [facility] Last Admin: 05/08/18 08:36 Dose: 2,000 units Cyanocobalamin (Vitamin B12 Tab*) 500 mcg PO BID [facility] Last Admin: 05/08/18 21:29 Dose: 500 mcg Dextrose (D50w Syringe 50 Ml*) 12.5 gm IV PUSH .FOR FS < 60 - SS PRN PRN Reason: FS < 60 Diclofenac Sodium (Voltaren 1% Gel (Nf)) 1 applic TOPICAL BID PRN; Protocol PRN Reason: PAIN Docusate Sodium (Colace Cap*) 100 mg PO BID [facility] Last Admin: 05/08/18 21:28 Dose: 100 mg Ferrous Sulfate (Ferrous Sulfate Tab*) 325 mg PO DAILY [facility] Last Admin: 05/08/18 08:36 Dose: 325 mg Guaifenesin (Mucinex*) 600 mg PO DAILY [facility] Last Admin: 05/08/18 08:37 Dose: 600 mg Ceftriaxone Sodium 1 gm/ (Sodium Chloride) 50 mls @ 200 mls/hr IVPB Q24H [facility] Last Admin: 05/08/18 16:30 Dose: 200 mls/hr Insulin Human Isoph/Insulin Regular (Humulin 70/30 (*)) 8 units SUBCUT BID AC [facility] Last Admin: 05/08/18 16:30 Dose: 8 units Insulin Human Lispro (Humalog*) 0 units SUBCUT ACHS [facility]; Protocol Last Admin: 05/08/18 21:29 Dose: 3 units Ipratropium [place] (Ipratropium [place]) 2 spray BOTH NARES BID [facility] Last Admin: 05/08/18 21:25 Dose: 2 spray Levothyroxine Sodium (Synthroid Tab*) 50 mcg PO DAILY@0600 [facility] Last Admin: 05/09/18 05:02 Dose: 50 mcg Magnesium Hydroxide (Milk Of Magnesia Liq*) 30 ml PO Q4H PRN PRN Reason: CONSTIPATION Nitroglycerin (Nitroglycerin Tab 0.4 Mg*) 0.4 mg SL Q5M PRN PRN Reason: ANGINA Potassium Chloride (Klor Con Er Tab*) 20 meq PO DAILY [facility] Last Admin: 05/08/18 11:23 Dose: Not Given Vital Signs - 8 hr 05/09/18 05/09/18 05/09/18 03:47 07:22 07:33 Temperature 97.5 F 98.3 F Pulse Rate 58 60 Respiratory 16 16 18 Rate Blood Pressure 131/40 135/44 (mmHg) O2 Sat by Pulse 97 100 Oximetry Oxygen Devices in Use Now: None Appearance: alert , sittingin the chair no acute distress Eyes: No Scleral Icterus Ears/Nose/Mouth/Throat: Clear Oropharnyx, Mucous Membranes Moist Neck: NL Appearance and Movements; NL JVP, Trachea Midline Respiratory: Symmetrical Chest Expansion and Respiratory Effort, Clear to Auscultation Cardiovascular: NL Sounds; No Murmurs; No JVD, No Edema Abdominal: NL Sounds; No Tenderness; No Distention Extremities: No Edema, No Clubbing, Cyanosis Skin: No Rash or Ulcers Neurological: Alert and Oriented x 3 Nutrition: Taking PO's - Nutrition: Malnutrition Diagnosis/Plan Malnutrition Assessment by Registered Dietitian: Malnutrition Assessment Clinical Characteristics Chronic,Severe Malnutrition Assessment: < or = 75% energy needs x > or = 1 mo Criteria severe wt loss: 11% x 2 mos (>7.5% x 3 mos) temporal wasting Malnutrition Assessment: strawberry Glucerna with meals per provider Interventions order (ordered Ensure, but will send Glucerna given hx DM and hyperglycemia): 220 kcal, 10 g pro per serving Malnutrition Assessment: Goals 1. PO will improve to at least 50% of meals, with >50% acceptance of oral supplements 2. BG control will improve with appropriate insulin regimen (goal <180) 3. K+ will improve with repletion Result Diagrams: 05/10/18 05:20 05/10/18 05:20 Microbiology and Other Data: Microbiology 05/06/18 14:40 Urine Culture - Final Urine Escherichia Coli Normal Nelsy 05/06/18 14:40 Aerobic Blood Culture - Preliminary Blood Venous No Growth Day 1 Anaerobic Blood Culture - Preliminary No Growth Day 1 05/06/18 14:35 Aerobic Blood Culture - Preliminary Blood Venous No Growth Day 1 Anaerobic Blood Culture - Preliminary No Growth Day 1 Assess/Plan/Problems-Billing Assessment: Ms. Crater is a 78 y.o female with significant medical history including severe COPD, multiple issues with pneumonia, history of TAVR, coronary artery disease, chronic heart failure with ejection fraction of 30% to 35%, polyclonal hypergammaglobulinemia, history of chronic anemia with frequent transfusions in the past, chronic atrial fibrillation, pacemaker/AICD implantation, severe GERD and peptic ulcer disease, CKD stage 3, rheumatoid arthritis, hypothyroidism, hypertension, hyperlipidemia, history of gastric bypass surgery in the past, diabetic retinopathy, and insulin-dependent diabetes mellitus. who presented to the ER via EMS for episode of unresponsiveness suspected to be related to dehydration and adult failure to thrive. She was also found to have underlying UTI. - Patient Problems (1) Failure to thrive Current Visit: Yes Status: Acute Code(s): MPX4075 - SNOMED Code(s): 22159709 Comment: Not clear if due to meds (i.e dehydration from diuretics), hypothyroidism, depression, other factors. Her home metolazone and torsemide have been held. - will give 500 cc of normal saline today - bun and creatinine continue to improve (2) Urinary tract infection Current Visit: No Status: Acute Comment: Urine Culture positive for E. Coli Continue Ceftriaxone. (3) Severe malnutrition Current Visit: Yes Status: Acute Code(s): E43 - UNSPECIFIED SEVERE PROTEIN- CALORIE MALNUTRITION SNOMED Code(s): 66292363 Comment: Low albumin, prealbumin, marked sarcopenia, BMI 16.5, poor appetite. - eating today (4) Hypokalemia Current Visit: Yes Status: Acute Code(s): E87.6 - HYPOKALEMIA SNOMED Code( s): 32838688 Comment: Potassium 3.8 on 05/08/18, reduce oral KCL to 20 meq daily, start . (5) Anemia Current Visit: No Status: Acute Priority: Medium Onset Date: 06/28/14 Code(s): D64.9 - ANEMIA, UNSPECIFIED SNOMED Code(s): 482142494 Comment: ACD. 1 U PRBC's given 05/07. Hgb 9.2 - will recheck cbc in the AM (6) COPD (chronic obstructive pulmonary disease) Current Visit: No Status: Acute Code(s): J44.9 - CHRONIC OBSTRUCTIVE PULMONARY DISEASE, UNSPECIFIED SNOMED Code(s): 18466996 Comment: -Continue Albuterol prn, guaifenesin. (7) CAD (coronary artery disease) Current Visit: No Status: Chronic Code(s): I25.10 - ATHSCL HEART DISEASE OF [place] CORONARY ARTERY W/O ANG PCTRS SNOMED Code(s): 31712833 Comment: Continue statin, BB, ASA. Note ischemic cardiomyopathy with LVEF 30 -35% on 05/06/18. (8) Diabetes Current Visit: No Status: Chronic Priority: Medium Code(s): E11.9 - TYPE 2 DIABETES MELLITUS WITHOUT COMPLICATIONS SNOMED Code(s): 90578387 Comment: - stable - will continue 70/30 BID and lispro sliding scale (9) GERD (gastroesophageal reflux disease) Current Visit: No Status: Chronic Code(s): K21.9 - GASTRO-ESOPHAGEAL REFLUX DISEASE WITHOUT ESOPHAGITIS SNOMED Code(s): 033705630 Comment: -Continue Omeprazole (10) Hypothyroid Current Visit: No Status: Chronic Code(s): E03.9 - HYPOTHYROIDISM, UNSPECIFIED SNOMED Code(s): 12263003 Comment: continue Levothyroxine at 50 mcg was increased on 05/07. Repeat TSH 4 to 6 weeks (11) Full code status Current Visit: No Status: Chronic Code(s): Z78.9 - OTHER SPECIFIED HEALTH STATUS SNOMED Code(s): 372370514 (12) CKD (chronic kidney disease) Current Visit: No Status: Acute Code(s): N18.9 - CHRONIC KIDNEY DISEASE, UNSPECIFIED SNOMED Code(s): 326488308 Comment: Est GFR up to 39.5 on 05/08/18, about her baseline. BUN falling slowly, still very high. will give another infusion of NS 500 ml today, repeat BMP and Mg++ on 05/10. - Note US kidneys showed renal artery calcifications but no hydro or stones. Status and Disposition: discharge when medically stable
[2018-05-09] MEDS: Insulin LISPRO* 1 UNITS UNIT SUBCUT SCH ×4 (09:22→20:47)
[2018-05-09] MEDS: Insulin ISOPH/REG 70/30 (*) 1 UNITS UNIT SUBCUT SCH ×2 (09:24→17:10)
[2018-05-09] MEDS: IPRATROPIUM BR 0.03% BOTH NARES SCH ×2 (09:25→20:45)
[2018-05-09] MEDS: Cholecalciferol TAB* 1000 UNITS PO SCH (09:26)
[2018-05-09] MEDS: Carvedilol TAB* 6.25 MG PO SCH ×2 (09:27→20:43)
[2018-05-09] MEDS: Calcium/Vitamin D TAB 250/125* TAB PO SCH ×2 (09:28→20:44)
[2018-05-09] MEDS: Docusate CAP* 100 MG PO SCH ×2 (09:28→20:45)
[2018-05-09] MEDS: Cyanocobalamin TAB* 500 MCG PO SCH ×2 (09:28→20:42)
[2018-05-09] MEDS: Calcium Citrate TAB* 200 MG PO SCH ×2 (09:29→20:43)
[2018-05-09] MEDS: Potassium Chlor TAB* 20 MEQ TAB.ER PO SCH (09:29)
[2018-05-09] MEDS: Ascorbic Acid TAB* 500 MG PO SCH (09:29)
[2018-05-09] MEDS: Atorvastatin* 10 MG TAB PO SCH (09:29)
[2018-05-09] MEDS: guaiFENesin ER TAB 600 MG PO SCH (09:30)
[2018-05-09] MEDS: Ferrous Sulfate TAB* 325 MG PO SCH (09:30)
[2018-05-09] MEDS: Aspirin 81 mg CHEW TAB* 81 MG TAB.CHEW PO SCH (09:30)
[2018-05-09] MEDS: cefTRIAXone(*) 1 GM in NS 0.9% 50 ML* 50 ML IVPB SCH (16:19)
--- NOTE | 2018-05-09 17:22 | CONSULT ---
Palliative / Hospice Consult Ordering Provider: Sofia NG-Storm - Subjective Code Status: Full Code Advance Directives Location: No Advance Directives - History or Present Illness History or Present Illness: 78yo female presents to ER with unresponsiveness. PMH significant for CHF, AVR 2016, s/p pacer for chronic afib, HTN, CAD, hyperlipidemia, COPD, hypergammaglobulinemia, chronic anemia, severe GERD, PUD, CKD stage 3, RA, hypothyroidism, DM and retinopathy. Pt has been to ER 4x in last year for hypotension, low sugar, nosebleed and SOB and 3 hospitalizations 2x for pneumonia and epistaxis. After her last hospitalization she was sent for WILL at [facility]. Family & pt were concerned because she was put on meds that made pt drowsy and not eating. Since she has been home her meds have been changed to her original meds and her appetite has improved. Family did note that pt is having trouble at night with being scared and wanting someone to stay with her until she falls asleep. According to weights pt has lost 10 kilos in the last 3 months. While in the hospital she is eating 100% the last 2 days. Renal US showed calcifications, ECHO EF 30-35%, Ekg ventricular paced, CXR COPD, Ct brain no new pathology, did show chronic small vessel ischemic changes. h/h 9.2, BUN/Cr 107/1.21 egfr 42.9, alb 2.5, tprot 6 prealbumin 10. Lab Values: Abnormal Lab Results 05/08/18 05/09/18 05/09/18 20:09 05:25 07:16 Sodium 136 Potassium 3.9 Chloride 105 Carbon Dioxide 25 Anion Gap 6 BUN 107 H Creatinine 1.21 H Est GFR ( Amer) 51.9 Est GFR (Non-Af Amer) 42.9 BUN/Creatinine Ratio 88.4 H Glucose 128 H POC Glucose (mg/dL) 290 H 135 H Calcium 7.0 L Magnesium 1.9 05/09/18 05/09/18 11:21 16:19 Sodium Potassium Chloride Carbon Dioxide Anion Gap BUN Creatinine Est GFR ( Amer) Est GFR (Non-Af Amer) BUN/Creatinine Ratio Glucose POC Glucose (mg/dL) 178 H 259 H Calcium Magnesium Laboratory Last Values WBC 4.6 10^3/uL (3.5-10.8) 05/08/18 04:57 RBC 3.12 10^6 /uL (3.70-4.87) L 05/08/18 04:57 Hgb 9.2 g/dL (12.0-16.0) L 05/08/18 04:57 Hct 27 % (33-41) L 05/08/18 04:57 MCV 88 fL (80-97) 05/08/18 04:57 MCH 29 pg (27-31) 05/08/18 04:57 MCHC 33 g/dL (31-36) 05/08/18 04:57 RDW 17 % (10.5-15) H 05/08/18 04:57 Plt Count 107 10^3/uL (150-450) L 05/08/18 04:57 MPV 9.2 fL (7.4-10.4) 05/08/18 04:57 Neut % (Auto) 84.2 % 05/08/18 04:57 Lymph % (Auto) 7.3 % 05/08/18 04:57 [place] % (Auto) 4.3 % 05/08/18 04:57 Eos % (Auto) 3.7 % 05/08/18 04:57 Baso % (Auto) 0.5 % 05/08/18 04:57 Absolute Neuts (auto) 3.8 10^3/ul (1.5-7.7) 05/08/18 04:57 Absolute Lymphs (auto) 0.3 10^3/ul (1.0-4.8) L 05/08/18 04:57 Absolute Monos (auto) 0.2 10^3/ul (0-0.8) 05/08/18 04:57 Absolute Eos (auto) 0.2 10^3/ul (0-0.6) 05/08/18 04:57 Absolute Basos (auto) 0 10^3/ul (0-0.2) 05/08/18 04:57 Absolute Nucleated RBC 0 10^3/ul 05/08/18 04:57 Nucleated RBC % 0.1 05/08/18 04:57 INR (Anticoag Therapy) 1.07 (0.77-1.02) H 05/06/18 13:16 ABG pH 7.51 (7.35-7.45) H 05/06/18 14:50 ABG pCO2 35 mmHg (35-45) 05/06/18 14:50 ABG pO2 71 mmHg (80-100) L 05/06/18 14:50 ABG HCO3 28.7 mmol/L (19-31) 05/06/18 14:50 ABG O2 Saturation 96.5 % (94.0-98.0) 05/06/18 14:50 ABG Base Excess 4.9 mmol/L (-2.0-2.0) H 05/06/18 14:50 Sodium 136 mmol/L (135-145) 05/09/18 05:25 Potassium 3.9 mmol/L (3.5-5.0) 05/09/18 05:25 Chloride 105 mmol/L (101-111) 05/09/18 05:25 Carbon Dioxide 25 mmol/L (22-32) 05/09/18 05:25 Anion Gap 6 mmol/L (2-11) 05/09/18 05:25 BUN 107 mg/dL (6-24) H 05/09/18 05:25 Creatinine 1.21 mg/dL (0.51-0.95) H 05/09/18 05:25 Est GFR ( Amer) 51.9 (>60) 05/09/18 05:25 Est GFR (Non-Af Amer) 42.9 (>60) 05/09/18 05:25 BUN/Creatinine Ratio 88.4 (8-20) H 05/09/18 05:25 Glucose 128 mg/dL (70-100) H 05/09/18 05:25 POC Glucose (mg/dL) 259 mg/dL (70-100) H 05/09/18 16:19 Lactic Acid 1.3 mmol/L (0.5-2.0) 05/06/18 21:12 Calcium 7.0 mg/dL (8.6-10.3) L 05/09/18 05:25 Magnesium 1.9 mg/dL (1.9-2.7) 05/09/18 05:25 Total Bilirubin 0.30 mg/dL (0.2-1.0) 05/07/18 04:56 AST 14 U/L (13-39) 05/07/18 04:56 ALT 7 U/L (7-52) 05/07/18 04:56 Alkaline Phosphatase 42 U/L (34-104) 05/07/18 04:56 Ammonia 48 mcmol/L (16-53) 05/06/18 13:16 Total Creatine Kinase 66 U/L (10-223) 05/06/18 13:16 Troponin I 0.03 ng/mL (<0.04) 05/06/18 21:12 Total Protein 6.0 g/dL (6.4-8.9) L 05/07/18 04:56 Albumin 2.5 g/dL (3.2-5.2) L 05/07/18 04:56 Globulin 3.5 g/dL (2-4) 05/07/18 04:56 Albumin/Globulin Ratio 0.7 (1-3) L 05/07/18 04:56 Prealbumin 10 mg/dL (18-38) L 05/08/18 04:57 TSH 9.07 mcIU/mL (0.34-5.60) H 05/06/18 13:16 Urine Color Yellow 05/06/18 14:40 Urine Appearance Cloudy 05/06/18 14:40 Urine pH 5.0 (5-9) 05/06/18 14:40 Ur Specific [place] 1.009 (1.010-1.030) L 05/06/18 14:40 Urine Protein 1+(30 mg/dl) (Negative) A 05/06/18 14:40 Urine Ketones Negative (Negative) 05/06/18 14:40 Urine Blood 2+ (Negative) A 05/06/18 14:40 Urine Nitrate Negative (Negative) 05/06/18 14:40 Urine Bilirubin Negative (Negative) 05/06/18 14:40 Urine Urobilinogen Negative (Negative) 05/06/18 14:40 Ur Leukocyte Esterase 3+ (Negative) A 05/06/18 14:40 Urine WBC (Auto) 3+(>20/hpf) (Absent) A 05/06/18 14:40 Urine RBC (Auto) 1+(3-5/hpf) (Absent) A 05/06/18 14:40 Ur Squamous Epith Cells Present (Absent) A 05/06/18 14:40 Urine Bacteria 1+ (Absent) A 05/06/18 14:40 Urine Glucose Negative (Negative) 05/06/18 14:40 Salicylates < 2.50 mg/dL (<30) 05/06/18 13:16 Acetaminophen < 15 mcg/mL 05/06/18 13:16 Serum Alcohol < 10 mg/dL (<10) 05/06/18 13:16 Blood Type O Positive 05/07/18 04:56 Antibody Screen Negative 05/07/18 04:56 Crossmatch See Detail 05/07/18 04:56 - Objective Active Medications: Acetaminophen (Tylenol Tab*) 650 mg PO Q4H PRN PRN Reason: FEVER/PAIN Last Admin: 05/07/18 11:22 Dose: 650 mg Albuterol (Ventolin 2.5 Mg/3 Ml Neb.Rivka*) 2.5 mg INH QID PRN PRN Reason: SHORTNESS OF BREATH Albuterol/Ipratropium (Duoneb (Albuterol 2.5 Mg/Ipratropium 0.5 Mg)) 1 neb INH [id number] AWAKE PRN PRN Reason: sob/wheexing Ascorbic Acid (Vitamin C Tab*) 500 mg PO DAILY [facility] Last Admin: 05/09/18 09:29 Dose: 500 mg Aspirin (Aspirin 81 Mg Chew Tab*) 81 mg PO DAILY [facility] Last Admin: 05/09/18 09:30 Dose: 81 mg Atorvastatin Calcium (Lipitor*) 10 mg PO DAILY [facility] Last Admin: 05/09/18 09:29 Dose: 10 mg Calcium Citrate (Citracal Tab*) 200 mg PO BID [facility] Last Admin: 05/09/18 09:29 Dose: 200 mg Calcium/Vitamin D (Oscal D Tab 250/125*) 1 tab PO BID [facility] Last Admin: 05/09/18 09:28 Dose: 1 tab Carvedilol (Coreg Tab*) 12.5 mg PO BID [facility] Last Admin: 05/09/18 09:27 Dose: 12.5 mg Cholecalciferol (Vitamin D Tab*) 2,000 units PO DAILY [facility] Last Admin: 05/09/18 09:26 Dose: 2,000 units Cyanocobalamin (Vitamin B12 Tab*) 500 mcg PO BID [facility] Last Admin: 05/09/18 09:28 Dose: 500 mcg Dextrose (D50w Syringe 50 Ml*) 12.5 gm IV PUSH .FOR FS < 60 - SS PRN PRN Reason: FS < 60 Diclofenac Sodium (Voltaren 1% Gel (Nf)) 1 applic TOPICAL BID PRN; Protocol PRN Reason: PAIN Docusate Sodium (Colace Cap*) 100 mg PO BID [facility] Last Admin: 05/09/18 09:28 Dose: 100 mg Ferrous Sulfate (Ferrous Sulfate Tab*) 325 mg PO DAILY [facility] Last Admin: 05/09/18 09:30 Dose: 325 mg Guaifenesin (Mucinex*) 600 mg PO DAILY [facility] Last Admin: 05/09/18 09:30 Dose: 600 mg Ceftriaxone Sodium 1 gm/ (Sodium Chloride) 50 mls @ 200 mls/hr IVPB Q24H [facility] Last Admin: 05/09/18 16:19 Dose: 200 mls/hr Insulin Human Isoph/Insulin Regular (Humulin 70/30 (*)) 8 units SUBCUT BID [facility] Last Admin: 05/09/18 09:24 Dose: 8 units Insulin Human Lispro (Humalog*) 0 units SUBCUT ACHS [facility]; Protocol Last Admin: 05/09/18 11:48 Dose: 1 units Ipratropium [place] (Ipratropium [place]) 2 spray BOTH NARES BID [facility] Last Admin: 05/09/18 09:25 Dose: 2 spray Levothyroxine Sodium (Synthroid Tab*) 50 mcg PO DAILY@0600 [facility] Last Admin: 05/09/18 05:02 Dose: 50 mcg Magnesium Hydroxide (Milk Of Magnesia Liq*) 30 ml PO Q4H PRN PRN Reason: CONSTIPATION Nitroglycerin (Nitroglycerin Tab 0.4 Mg*) 0.4 mg SL Q5M PRN PRN Reason: ANGINA Potassium Chloride (Klor Con Er Tab*) 20 meq PO DAILY [facility] Last Admin: 05/09/18 09:29 Dose: 20 meq Vital Signs: Vital Signs: Temp Pulse Resp BP Pulse Ox 97.3 F 63 20 104/43 100 05/09/18 11:28 05/09/18 11:28 05/09/18 11:28 05/09/18 11:28 05/09/18 11:28 Patient Weight: Weight 47.854 kg Intake and Output: Intake & Output 05/07/18 05/08/18 05/09/18 05/10/18 06:59 06:59 06:59 06:59 Intake Total 1682 1476 1440 710 Output Total 375 1225 1655 250 Balance 1307 251 -215 460 Weight 47.264 kg 47.038 kg 47.854 kg Intake: IV Fluids 1072 350 NS (0.9%) 972 350 IVPB 50 NS (0.9%) 50 Oral 309 117 8402 710 Packed Cells 286 Output: [place] 375 1225 1655 250 Other: # Bowel Movements 0 0 1 Estimated Stool Amount Large ADLs: Meal Record Start: 05/06/18 16: 17 Freq: DAILY@0900,1400,1800 Status: Active Protocol: Created 05/06/18 16:17 System (Rec: 05/06/18 16:17 System [id number]) Document 05/06/18 18:00 [id number] (Rec: 05/06/18 21:30 [id number] TELE-C09) Document 05/07/18 09:00 [id number] (Rec: 05/07/18 14:44 [id number] TELE-C11) Document 05/07/18 14:00 [id number] (Rec: 05/07/18 14:45 [id number] TELE-C11) Document 05/07/18 18:00 [id number] (Rec: 05/07/18 19:03 [id number] TELE-C13) Document 05/08/18 09:00 [id number] (Rec: 05/08/18 12:42 [id number] TELE-C11) Document 05/08/18 14:00 [id number] (Rec: 05/08/18 14:23 [id number] TELE-C11) Document 05/08/18 18:00 [id number] (Rec: 05/08/18 18:11 [id number] TELE-C01) Document 05/09/18 09:00 [id number] (Rec: 05/09/18 14:00 [id number] TELE-C05) Document 05/09/18 14:00 [id number] (Rec: 05/09/18 14:02 [id number] TELE-C05) Intake and Output Start: 05/06/18 12: 49 Freq: Status: Active Protocol: Created 05/06/18 12:49 System (Rec: 05/06/18 12:49 System [id number]) Intake and Output Start: 05/06/18 16: 17 Freq: DAILY@0600,1400,2200 Status: Active Protocol: Created 05/06/18 16:17 System (Rec: 05/06/18 16:17 System [id number]-C07) Document 05/06/18 22:00 [id number] (Rec: 05/06/18 22:13 [id number] TELE-C09) Document 05/07/18 04:54 [id number] (Rec: 05/07/18 04:54 [id number] TELE-C10) Document 05/07/18 05:17 [id number] (Rec: 05/07/18 05:17 [id number] TELE-M02) Document 05/07/18 14:00 [id number] (Rec: 05/07/18 14:27 [id number] TELE-M02) Document 05/07/18 22:00 [id number] (Rec: 05/07/18 22:22 [id number] TELE-C11) Document 05/08/18 06:00 [id number] (Rec: 05/08/18 06:19 [id number] TELE-C10) Document 05/08/18 14:00 [id number] (Rec: 05/08/18 14:23 [id number] TELE-C11) Document 05/08/18 22:00 [id number] (Rec: 05/08/18 22:15 [id number] TELE-C10) Document 05/09/18 06:00 [id number] (Rec: 05/09/18 06:03 [id number] TELE-C32) Eyes: No Scleral Icterus Cardiovascular: NL Sounds; No Murmurs; No JVD, RRR, No Edema, - Extremities: No Edema, No Clubbing, Cyanosis, - - marked sarcopenia Neurological: Alert and Oriented x 3, NL Sensation - Assessment Assessment: 78 yo with multiple medical problems presents with unresponsiveness, dehydration and failure to thrive - Plan Consult Plan (MU): Palliative Plan: Long discussion with pt and separate phone conversation with son. Discussed MOLST form but pt wants to have CPR because she has a new great grand daughter coming. She was not sure about feeding tube on intubation. She is happy with her quality of life. She lives with her son and her grandchildren. She was getting around with a wheeled walker but since her WILL she is using a wheelchair more often. She does get some assist with dressing and her meds but not with eating. She wants to go home and the son wants her at home. He works second shift so would prefer a morning discharge. Pt doesn't like coming to the hospital, I recommended [facility] program and left a brochure with pt. Also explained program to son and he seemed interested. I explained her night time behavior could be sundowning, which he wants to address with his PCP. Pt does have some mild forgetfulness according to son. - Time On Unit Date of Evaluation: 05/09/18 Hospice Consult Time in: 04:30 Hospice Consult Time Out: 06:00 Hospice Consult Time Total: 90 > 50% of Time Spend In Counseling or Coordinating Care: Yes
[2018-05-09] MEDS ORDERED: NS 0.9% 500 ML* 500 ML IV SCH (19:00)
[2018-05-09] MEDS: Acetaminophen TAB* 325 MG PO PRN (19:09)
[2018-05-10] MEDS ORDERED: Melatonin (NF) ** ENTER STRENGTH IN LABEL DIRECTIONS PO SCH (00:50)
[2018-05-10] MEDS: Melatonin 3 MG TAB PO SCH ×2 (01:19→21:36)
[2018-05-10 05:34] LABS: Hematocrit 27 % (33-41); Hemoglobin 8.9 g/dL (12.0-16.0); Mean Corpuscular HGB Conc 34 g/dL (31-36); Mean Corpuscular Hemoglobin 30 pg (27-31); Mean Corpuscular Volume 88 fL (80-97); Mean Platelet Volume 8.9 fL (7.4-10.4); Platelet Count 93 10^3/uL (150-450); Red Blood Count 3.02 10^6 /uL (3.70-4.87); Red Cell Distribution Width 17 % (10.5-15); White Blood Count 3.3 10^3/uL (3.5-10.8)
[2018-05-10 05:49] LABS: BUN/Creatinine Ratio 97.9 (8-20); Calcium 7.2 mg/dL (8.6-10.3); EGFR African American 67.8 (>60); EGFR Non-African American 56.1 (>60); Magnesium 1.8 mg/dL (1.9-2.7); Potassium 3.9 mmol/L (3.5-5.0)
[2018-05-10] MEDS: Levothyroxine TAB* 50 MCG TAB PO SCH (06:03)
[2018-05-10] MEDS: Insulin LISPRO* 1 UNITS UNIT SUBCUT SCH ×4 (07:19→21:39)
[2018-05-10] MEDS: Carvedilol TAB* 6.25 MG PO SCH ×2 (08:11→21:35)
[2018-05-10] MEDS: Ferrous Sulfate TAB* 325 MG PO SCH (08:11)
[2018-05-10] MEDS: Insulin ISOPH/REG 70/30 (*) 1 UNITS UNIT SUBCUT SCH ×2 (08:11→16:16)
[2018-05-10] MEDS: Cyanocobalamin TAB* 500 MCG PO SCH ×2 (08:11→21:36)
[2018-05-10] MEDS: Atorvastatin* 10 MG TAB PO SCH (08:11)
[2018-05-10] MEDS: guaiFENesin ER TAB 600 MG PO SCH (08:11)
[2018-05-10] MEDS: Aspirin 81 mg CHEW TAB* 81 MG TAB.CHEW PO SCH (08:11)
[2018-05-10] MEDS: Calcium/Vitamin D TAB 250/125* TAB PO SCH ×2 (08:11→21:36)
[2018-05-10] MEDS: Potassium Chlor TAB* 20 MEQ TAB.ER PO SCH (08:11)
[2018-05-10] MEDS: Calcium Citrate TAB* 200 MG PO SCH ×2 (08:11→21:35)
[2018-05-10] MEDS: Ascorbic Acid TAB* 500 MG PO SCH (08:11)
[2018-05-10] MEDS: Docusate CAP* 100 MG PO SCH ×2 (08:11→21:36)
[2018-05-10] MEDS: IPRATROPIUM BR 0.03% BOTH NARES SCH ×2 (08:12→21:37)
[2018-05-10] MEDS: Cholecalciferol TAB* 1000 UNITS PO SCH (08:12)
[2018-05-10] MEDS ORDERED: Magnesium Sulfate 2 GM IV* 2 GM/50 ML BAG IVPB ONE (08:35)
[2018-05-10] MEDS: cefTRIAXone(*) 1 GM in NS 0.9% 50 ML* 50 ML IVPB SCH (16:02)
--- NOTE | 2018-05-10 19:20 | PN ---
Subjective Date of Service: 05/10/18 Interval History: c/o of feeling tired, no chest pain or shortness of breath. denies fever or chills. denies n/v/d Family History: Unchanged from Admission Social History: Unchanged from Admission Past Medical History: Unchanged from Admission Objective Active Medications: Acetaminophen (Tylenol Tab*) 650 mg PO Q4H PRN PRN Reason: FEVER/PAIN Last Admin: 05/09/18 19:09 Dose: 650 mg Albuterol (Ventolin 2.5 Mg/3 Ml Neb.Rivka*) 2.5 mg INH QID PRN PRN Reason: SHORTNESS OF BREATH Albuterol/Ipratropium (Duoneb (Albuterol 2.5 Mg/Ipratropium 0.5 Mg)) 1 neb INH RT.[id number] AWAKE PRN PRN Reason: sob/wheexing Ascorbic Acid (Vitamin C Tab*) 500 mg PO DAILY [facility] Last Admin: 05/10/18 08:11 Dose: 500 mg Aspirin (Aspirin 81 Mg Chew Tab*) 81 mg PO DAILY [facility] Last Admin: 05/10/18 08:11 Dose: 81 mg Atorvastatin Calcium (Lipitor*) 10 mg PO DAILY [facility] Last Admin: 05/10/18 08:11 Dose: 10 mg Calcium Citrate (Citracal Tab*) 200 mg PO BID [facility] Last Admin: 05/10/18 08:11 Dose: 200 mg Calcium/Vitamin D (Oscal D Tab 250/125*) 1 tab PO BID [facility] Last Admin: 05/10/18 08:11 Dose: 1 tab Carvedilol (Coreg Tab*) 12.5 mg PO BID [facility] Last Admin: 05/10/18 08:11 Dose: 12.5 mg Cholecalciferol (Vitamin D Tab*) 2,000 units PO DAILY [facility] Last Admin: 05/10/18 08:12 Dose: 2,000 units Cyanocobalamin (Vitamin B12 Tab*) 500 mcg PO BID [facility] Last Admin: 05/10/18 08:11 Dose: 500 mcg Dextrose (D50w Syringe 50 Ml*) 12.5 gm IV PUSH .FOR FS < 60 - SS PRN PRN Reason: FS < 60 Diclofenac Sodium (Voltaren 1% Gel (Nf)) 1 applic TOPICAL BID PRN; Protocol PRN Reason: PAIN Docusate Sodium (Colace Cap*) 100 mg PO BID [facility] Last Admin: 05/10/18 08:11 Dose: 100 mg Ferrous Sulfate (Ferrous Sulfate Tab*) 325 mg PO DAILY [facility] Last Admin: 05/10/18 08:11 Dose: 325 mg Guaifenesin (Mucinex*) 600 mg PO DAILY [facility] Last Admin: 05/10/18 08:11 Dose: 600 mg Ceftriaxone Sodium 1 gm/ (Sodium Chloride) 50 mls @ 200 mls/hr IVPB Q24H [facility] Last Admin: 05/10/18 16:02 Dose: 200 mls/hr Insulin Human Isoph/Insulin Regular (Humulin 70/30 (*)) 8 units SUBCUT BID AC [facility] Last Admin: 05/10/18 16:16 Dose: 8 units Insulin Human Lispro (Humalog*) 0 units SUBCUT ACHS [facility]; Protocol Last Admin: 05/10/18 16:16 Dose: 1 units Ipratropium [place] (Ipratropium [place]) 2 spray BOTH NARES BID [facility] Last Admin: 05/10/18 08:12 Dose: 2 spray Levothyroxine Sodium (Synthroid Tab*) 50 mcg PO DAILY@0600 [facility] Last Admin: 05/10/18 06:03 Dose: 50 mcg Magnesium Hydroxide (Milk Of Magnesia Liq*) 30 ml PO Q4H PRN PRN Reason: CONSTIPATION Melatonin (Melatonin) 3 mg PO BEDTIME [facility] Last Admin: 05/10/18 01:19 Dose: Not Given Nitroglycerin (Nitroglycerin Tab 0.4 Mg*) 0.4 mg SL Q5M PRN PRN Reason: ANGINA Potassium Chloride (Klor Con Er Tab*) 20 meq PO DAILY [facility] Last Admin: 05/10/18 08:11 Dose: 20 meq Vital Signs - 8 hr 05/10/18 05/10/18 12:58 18:56 Temperature 97.1 F Pulse Rate 60 Respiratory 16 18 Rate Blood Pressure 121/33 (mmHg) O2 Sat by Pulse 98 Oximetry Oxygen Devices in Use Now: None Appearance: appears comfortable resting in bed , no acute distress Eyes: No Scleral Icterus Ears/Nose/Mouth/Throat: Clear Oropharnyx, Mucous Membranes Moist Neck: NL Appearance and Movements; NL JVP, Trachea Midline Respiratory: Symmetrical Chest Expansion and Respiratory Effort, Clear to Auscultation Cardiovascular: NL Sounds; No Murmurs; No JVD, No Edema Abdominal: NL Sounds; No Tenderness; No Distention Extremities: No Edema, No Clubbing, Cyanosis Skin: No Rash or Ulcers Neurological: Alert and Oriented x 3 Nutrition: Taking PO's - Nutrition: Malnutrition Diagnosis/Plan Malnutrition Assessment by Registered Dietitian: Malnutrition Assessment Clinical Characteristics Chronic,Severe Malnutrition Assessment: < or = 75% energy needs x > or = 1 mo Criteria severe wt loss: 11% x 2 mos (>7.5% x 3 mos) temporal wasting Malnutrition Assessment: strawberry Glucerna with meals per provider Interventions order (ordered Ensure, but will send Glucerna given hx DM and hyperglycemia): 220 kcal, 10 g pro per serving Malnutrition Assessment: Goals 1. PO will improve to at least 50% of meals, with >50% acceptance of oral supplements 2. BG control will improve with appropriate insulin regimen (goal <180) 3. K+ will improve with repletion Result Diagrams: 05/10/18 05:20 05/10/18 05:20 Microbiology and Other Data: Microbiology 05/06/18 14:40 Urine Culture - Final Urine Escherichia Coli Normal Nelsy 05/06/18 14:40 Aerobic Blood Culture - Preliminary Blood Venous No Growth Day 1 Anaerobic Blood Culture - Preliminary No Growth Day 1 05/06/18 14:35 Aerobic Blood Culture - Preliminary Blood Venous No Growth Day 1 Anaerobic Blood Culture - Preliminary No Growth Day 1 Assess/Plan/Problems-Billing Assessment: Ms. Carter is a 78 y.o female with significant medical history including severe COPD, multiple issues with pneumonia, history of TAVR, coronary artery disease, chronic heart failure with ejection fraction of 30% to 35%, polyclonal hypergammaglobulinemia, history of chronic anemia with frequent transfusions in the past, chronic atrial fibrillation, pacemaker/AICD implantation, severe GERD and peptic ulcer disease, CKD stage 3, rheumatoid arthritis, hypothyroidism, hypertension, hyperlipidemia, history of gastric bypass surgery in the past, diabetic retinopathy, and insulin-dependent diabetes mellitus. who presented to the ER via EMS for episode of unresponsiveness suspected to be related to dehydration and adult failure to thrive. She was also found to have underlying UTI. - Patient Problems (1) Failure to thrive Current Visit: Yes Status: Acute Code(s): LWE0263 - SNOMED Code(s): 88374104 Comment: Not clear if due to meds (i.e dehydration from diuretics), hypothyroidism, depression, other factors. Her home metolazone and torsemide have been held. - bun and creatinine continue to improve with hydration - patient eating better, improved strength - walking walker today - will discontinue metolazone at discharge - suspect this is most likely related to dehydration and UTI (2) Urinary tract infection Current Visit: No Status: Acute Comment: Urine Culture positive for E. Coli Continue Ceftriaxone. (3) Severe malnutrition Current Visit: Yes Status: Acute Code(s): E43 - UNSPECIFIED SEVERE PROTEIN- CALORIE MALNUTRITION SNOMED Code(s): 52524320 Comment: Low albumin, prealbumin, marked sarcopenia, BMI 16.5, poor appetite. - eating today (4) Hypokalemia Current Visit: Yes Status: Acute Code(s): E87.6 - HYPOKALEMIA SNOMED Code( s): 33843241 Comment: Potassium 3.8 on 05/08/18, reduce oral KCL to 20 meq daily, start . (5) Anemia Current Visit: No Status: Acute Priority: Medium Onset Date: 06/28/14 Code(s): D64.9 - ANEMIA, UNSPECIFIED SNOMED Code(s): 430251963 Comment: ACD. 1 U PRBC's given 05/07. Hgb 9.2 - will recheck cbc in the AM (6) COPD (chronic obstructive pulmonary disease) Current Visit: No Status: Acute Code(s): J44.9 - CHRONIC OBSTRUCTIVE PULMONARY DISEASE, UNSPECIFIED SNOMED Code(s): 10129503 Comment: -Continue Albuterol prn, guaifenesin. (7) CAD (coronary artery disease) Current Visit: No Status: Chronic Code(s): I25.10 - ATHSCL HEART DISEASE OF [place] CORONARY ARTERY W/O ANG PCTRS SNOMED Code(s): 09190258 Comment: Continue statin, BB, ASA. Note ischemic cardiomyopathy with LVEF 30 -35% on 05/06/18. (8) Diabetes Current Visit: No Status: Chronic Priority: Medium Code(s): E11.9 - TYPE 2 DIABETES MELLITUS WITHOUT COMPLICATIONS SNOMED Code(s): 18773123 Comment: - stable - will continue 70/30 BID and lispro sliding scale (9) GERD (gastroesophageal reflux disease) Current Visit: No Status: Chronic Code(s): K21.9 - GASTRO-ESOPHAGEAL REFLUX DISEASE WITHOUT ESOPHAGITIS SNOMED Code(s): 838880408 Comment: -Continue Omeprazole (10) Hypothyroid Current Visit: No Status: Chronic Code(s): E03.9 - HYPOTHYROIDISM, UNSPECIFIED SNOMED Code(s): 41276311 Comment: continue Levothyroxine at 50 mcg was increased on 05/07. Repeat TSH 4 to 6 weeks (11) Full code status Current Visit: No Status: Chronic Code(s): Z78.9 - OTHER SPECIFIED HEALTH STATUS SNOMED Code(s): 282518399 (12) CKD (chronic kidney disease) Current Visit: No Status: Acute Code(s): N18.9 - CHRONIC KIDNEY DISEASE, UNSPECIFIED SNOMED Code(s): 930101351 Comment: Est GFR up to 39.5 on 05/08/18, about her baseline. BUN falling slowly, still very high. will give another infusion of NS 500 ml today, repeat BMP and Mg++ on 05/10. - Note US kidneys showed renal artery calcifications but no hydro or stones. Status and Disposition: discharge when medically stable
--- NOTE | 2018-05-11 03:21 | DS ---
DISCHARGE SUMMARY: DATE OF ADMISSION: 05/06/18 DATE OF DISCHARGE: 05/11/18 PROVIDER: Ambar Parker NP PRIMARY CARE PROVIDER: Vanesa Alexandra NP ATTENDING PHYSICIAN WHILE IN THE HOSPITAL: Dr. Ebonie Osei * (dictated by Ambar Parker NP) PRIMARY DIAGNOSES: 1. Dehydration. 2. Failure to thrive. 3. Urinary tract infection. SECONDARY DIAGNOSES: 1. Chronic obstructive pulmonary disease. 2. History of transcatheter aortic valve replacement valve. 3. Coronary artery disease. 4. Chronic heart failure with ejection fraction of 30% to 35%. 5. Polyclonal hypergammaglobulinemia. 6. History of chronic anemia with frequent transfusions. 7. Chronic atrial fibrillation. 8. Pacemaker/automatic implantable cardiovascular defibrillator implantation. 9. Severe gastroesophageal reflux disease. 10. Peptic ulcer disease. 11. Chronic kidney disease, stage 3. 12. Rheumatoid arthritis. 13. Hypothyroidism. 14. Hypertension. 15. Hyperlipidemia. 16. History of gastric bypass. 17. Diabetic retinopathy. 18. Insulin-dependent diabetes. STUDIES COMPLETED WHILE IN THE HOSPITAL: She had a CT of the brain on . Radiologist's impression: No acute intracranial pathology. Chronic small- vessel ischemic change. She had a chest x-ray on 05/06/18. Radiologist's impression: COPD. She had an electrocardiogram on 05/06/18, which showed a ventricular paced rhythm at a rate of 65. She had a transthoracic echocardiogram on 05/06/18. Conclusion: Left ventricular chamber size is normal, estimated ejection fraction 30% to 35%, postsurgical hypokinesis, and the interventricular septum is observed consistent with valve replacement. Assessment of diastolic function is nondiagnostic, left atrium is mildly dilated. Pacemaker wires are visualized in the right ventricle. Pacemaker wire is visualized in the right atrium. There is trace aortic regurgitation, bioprosthetic aortic valve is present and functioning normally. There is mild mitral regurgitation, [id number] tricuspid regurgitation, and there is evidence of mild pulmonary hypertension. DISCHARGE MEDICATIONS: New home medications: 1. Levothyroxine increased to 50 mcg p.o. daily. 2. Potassium chloride 20 mEq p.o. daily. Continued home medications: 1. Acetaminophen 650 mg p.o. q.4 hours as needed for pain. 2. Albuterol nebulizer, inhale 4 times a day as needed for shortness of breath. 3. Vitamin C 500 mg p.o. daily. 4. Aspirin 81 mg p.o. daily. 5. Caltrate 600 plus D 1 tablet p.o. b.i.d. 6. Carvedilol 12.5 mg p.o. b.i.d. 7. Vitamin D 2000 units p.o. daily. 8. Vitamin B12, 500 mcg p.o. b.i.d. 9. Voltaren gel topically b.i.d. 10. Ferrous gluconate 325 mg p.o. daily. 11. Guaifenesin 600 mg p.o. daily. 12. Insulin 70/30, 5 units p.o. subcu b.i.d. 13. Ipratropium bromide 2 sprays both nares b.i.d. 14. Nitroglycerin 0.4 mg sublingual q.5 minutes as needed for chest pain. 15. Simvastatin 20 mg p.o. daily. 16. Albuterol HFA inhaler 2 puffs q.6 hours as needed for shortness of breath. 17. Protonix 40 mg p.o. daily. 18. Torsemide 10 mg p.o. daily. Discontinued medications: 1. Zaroxolyn 2.5 mg p.o. daily. Held medications: 1. Lisinopril 2.5 mg p.o. daily. The patient should follow up with primary care provider in regards to restarting lisinopril. HISTORY OF PRESENT ILLNESS AND HOSPITAL COURSE: Ms. Carter is a 78-year-old female with past medical history significant for COPD, TAVR valve, coronary artery disease, chronic heart failure with ejection fraction 30% to 35%, polyclonal hypergammaglobulinemia, history of chronic anemia with frequent transfusions, chronic atrial fibrillation, pacemaker, AICD placement, severe GERD, peptic ulcer disease, chronic kidney disease, rheumatoid arthritis, hypothyroidism, hypertension, hyperlipidemia, history of gastric bypass, who presented to the emergency room after an unresponsive episode at home. Per the emergency department report, the patient was found unresponsive and when emergency room personnel was placing the patient on the stretcher to transfer to the ambulance, she began to waken, she was still confused, but was opening eyes and making some verbal responses. The patient was brought to the emergency room where she remained alert. She was noted to have some desaturations and was placed on oxygen 15 L. Blood glucose at that time was 481 in the ambulance. The patient did not report any symptoms after she awoke. She did not have any recollection of any events. She did not remember what happened or why she was in the hospital. She was also hypotensive in the emergency room. Due to the episode of unresponsiveness, hypotension and presumed dehydration , Hospital Medicine was asked to admit. While in the hospital, the patient had routine lab work. She was given IV hydration, which improved her BUN and creatinine. Her diuretics were held during this hospitalization due to presumed dehydration and malnutrition. In review of the labs, the patient appears to have been dehydrated with underlying urinary tract infection. She was given ceftriaxone during this hospitalization for treatment of her UTI with E. coli bacteria greater than 100,000. The patient improved daily. She was able to regain her strength and became more alert. She was eating and tolerating meals without any difficulty. The patient was also anemic during this hospitalization. She did receive 1 unit of packed red blood cells for her anemia. She was also found to have a TSH of over 9 and increased her dose of Synthroid, which she will need a repeat TSH in 4 to 6 weeks. During the hospitalization, the patient was rehydrated. She was given physical therapy, from which she was able to regain strength and ambulate with a walker and one assist. At this time, she is stable for discharge home. Vital signs: Blood pressure 130/27, heart rate is 64, respirations 16, O2 saturation 100% on room air, temperature 97.1. DISCHARGE PLAN: Ms. Carter will be discharged back home with her son. Activity as tolerated. She should continue to use a walker. 1. Dehydration. I suspect this is the cause of her episode of unresponsiveness with severe dehydration. Her diuretics were held during this hospitalization. I will discontinue her Zaroxolyn at this time and only continue torsemide at this time at 10 mg p.o. daily. 2. Urinary tract infection. The patient was found to have a urinary tract infection with E. coli bacteria greater than 100,000. She was given ceftriaxone IV during this hospitalization for complete antibiotic treatment of her urinary tract infection. No further antibiotics will be needed at discharge. 3. Anemia. The patient does have a history of chronic anemia with history of blood transfusion. She did receive 1 unit of packed red blood cells during this hospitalization for an H and H of 7.5 and 23, which improved her hemoglobin and hematocrit to 9.2 and 27 and repeat was 8.9 and 27. The patient should continue to take ferrous sulfate 325 mg p.o. daily. 4. Hypothyroid. The patient, on admission, did have a TSH of 9.07. Her levothyroxine was increased to 50 mcg p.o. daily. She should have a repeat TSH in 4 to 6 weeks. 5. Hypomagnesium. The patient did have a low magnesium level of 1.8. She was given 2 g of magnesium during this hospitalization to replace her low magnesium level. 6. Elevated BUN and creatinine. I again suspect this is related to dehydration. The patient was given IV fluids during this hospitalization, which improved her BUN and creatinine to 94 and 0.96. Again, I suspect this elevation in her BUN and creatinine was related to dehydration and concurrent use of diuretics. The diuretics have been held during this hospitalization and I will discontinue Zaroxolyn at discharge. Further recommendations of diuretics should be made by her primary care provider at followup. 7. Coronary artery disease. The patient should continue on Coreg as previously prescribed. The patient should continue on simvastatin 20 mg p.o. daily. The patient should also continue her aspirin and simvastatin. 8. Acid reflux. The patient should continue on pantoprazole 40 mg p.o. daily. 9. Diabetes. The patient should continue on insulin 70/30, 5 units subcu b.i.d. 10. Chronic obstructive pulmonary disease: The patient should continue on home inhalers and nebulizer treatments as previously prescribed. 11. Chronic pain. The patient can continue Voltaren gel and Tylenol as needed for pain. FOLLOWUP: The patient should follow up with her primary care provider in 4 to 7 days. She should return to the emergency room for any chest pain, shortness of breath , syncope, weakness, or any other concerning symptoms. TIME SPENT: Time spent on this discharge was approximately 60 minutes, greater than half that time was spent discussing discharge plans and instructions. CONDITION ON DISCHARGE: Stable. DISPOSITION ON DISCHARGE: Home. I have discussed this with my attending, Dr. Ebonie Osei and she is in agreement with my plan. AMBAR PARKER NP [id number]/[facility] #: [id number] [facility] CAMPUSJaneth
[2018-05-11] MEDS: Levothyroxine TAB* 50 MCG TAB PO SCH (05:33)
[2018-05-11] MEDS: IPRATROPIUM BR 0.03% BOTH NARES SCH (07:49)
[2018-05-11] MEDS: Insulin LISPRO* 1 UNITS UNIT SUBCUT SCH (07:49)
[2018-05-11] MEDS: Insulin ISOPH/REG 70/30 (*) 1 UNITS UNIT SUBCUT SCH (07:49)
[2018-05-11] MEDS: Calcium/Vitamin D TAB 250/125* TAB PO SCH (07:50)
[2018-05-11] MEDS: Cholecalciferol TAB* 1000 UNITS PO SCH (07:50)
[2018-05-11] MEDS: Docusate CAP* 100 MG PO SCH (07:51)
[2018-05-11] MEDS: Ascorbic Acid TAB* 500 MG PO SCH (07:51)
[2018-05-11] MEDS: Aspirin 81 mg CHEW TAB* 81 MG TAB.CHEW PO SCH (07:51)
[2018-05-11] MEDS: Ferrous Sulfate TAB* 325 MG PO SCH (07:51)
[2018-05-11] MEDS: guaiFENesin ER TAB 600 MG PO SCH (07:51)
[2018-05-11] MEDS: Cyanocobalamin TAB* 500 MCG PO SCH (07:51)
[2018-05-11] MEDS: Potassium Chlor TAB* 20 MEQ TAB.ER PO SCH (07:51)
[2018-05-11] MEDS: Atorvastatin* 10 MG TAB PO SCH (07:51)
[2018-05-11] MEDS: Carvedilol TAB* 6.25 MG PO SCH (07:51)
[2018-05-11] MEDS: Calcium Citrate TAB* 200 MG PO SCH (07:51)
[2018-05-11 08:39] VITALS: BP 143/40
--- NOTE | 2018-05-11 11:17 | CONSULT ---
Subjective Date of Service: 05/11/18 Interval History: Mr. Carter is a 78 yo female with PMH significant for Patient seen and examined at bedside. [place] [facility] [place] wounds on buttocks. Family History: Unchanged from Admission Social History: Unchanged from Admission Past Medical History: Unchanged from Admission Review of Systems - Measurements Intake and Output: Intake and Output Last 24 Hours 05/09/18 05/10/18 05/11/18 05/12/18 06:59 06:59 06:59 06:59 Intake Total 1440 2601 901 360 Output Total 1655 1250 800 Balance -215 1351 101 360 Weight 105 lb 8 oz 103 lb 9.6 oz 108 lb Intake: IV Fluids 451 61 NS (0.9%) 451 magnesium 61 Oral 1440 2150 840 360 Output: Urine 800 [place] 1655 1250 Other: # Bowel Movements 0 1 1 Estimated Stool Amount Medium Large - Review of Systems Constitutional Symptoms: Negative: Fever, Other - Chills Dermatology: Positive: Other - Open areas to buttocks and "scratches" to bilateral arms Objective Active Medications: Acetaminophen (Tylenol Tab*) 650 mg PO Q4H PRN Reason: FEVER/PAIN Albuterol (Ventolin 2.5 Mg/3 Ml Neb.Rivka*) 2.5 mg INH QID PRN Reason: SHORTNESS OF BREATH Albuterol/Ipratropium (Duoneb (Albuterol 2.5 Mg/Ipratropium 0.5 Mg)) 1 neb INH [id number] AWAKE PRN Reason: sob/wheexing Ascorbic Acid (Vitamin C Tab*) 500 mg PO DAILY [facility] Aspirin (Aspirin 81 Mg Chew Tab*) 81 mg PO DAILY [facility] Atorvastatin Calcium (Lipitor*) 10 mg PO DAILY [facility] Calcium Citrate (Citracal Tab*) 200 mg PO BID [facility] Calcium/Vitamin D (Oscal D Tab 250/125*) 1 tab PO BID [facility] Carvedilol (Coreg Tab*) 12.5 mg PO BID [facility] Cholecalciferol (Vitamin D Tab*) 2,000 units PO DAILY [facility] Cyanocobalamin (Vitamin B12 Tab*) 500 mcg PO BID [facility] Dextrose (D50w Syringe 50 Ml*) 12.5 gm IV PUSH .FOR FS < 60 - SS PRN Reason: FS < 60 Diclofenac Sodium (Voltaren 1% Gel (Nf)) 1 applic TOPICAL BID PRN; Protocol Reason: PAIN Docusate Sodium (Colace Cap*) 100 mg PO BID [facility] Ferrous Sulfate (Ferrous Sulfate Tab*) 325 mg PO DAILY [facility] Guaifenesin (Mucinex*) 600 mg PO DAILY [facility] Ceftriaxone Sodium 1 gm/ (Sodium Chloride) 50 mls @ 200 mls/hr IVPB Q24H [facility] Insulin Human Isoph/Insulin Regular (Humulin 70/30 (*)) 8 units SUBCUT BID AC [facility] Insulin Human Lispro (Humalog*) 0 units SUBCUT ACHS [facility]; Protocol Ipratropium [place] (Ipratropium [place]) 2 spray BOTH NARES BID [facility] Levothyroxine Sodium (Synthroid Tab*) 50 mcg PO DAILY@0600 [facility] Magnesium Hydroxide (Milk Of Magnesia Liq*) 30 ml PO Q4H PRN Reason: CONSTIPATION Melatonin (Melatonin) 3 mg PO BEDTIME [facility] Nitroglycerin (Nitroglycerin Tab 0.4 Mg*) 0.4 mg SL Q5M PRN Reason: ANGINA Potassium Chloride (Klor Con Er Tab*) 20 meq PO DAILY [facility] Vital Signs - 8 hr 05/11/18 05/11/18 05/11/18 04:11 07:10 07:32 Temperature 97.6 F 96.9 F Pulse Rate 59 59 Respiratory 16 16 16 Rate Blood Pressure 115/30 143/40 (mmHg) O2 Sat by Pulse 98 100 Oximetry Oxygen Devices in Use Now: None Appearance: NAD, sitting up in a chair Ears/Nose/Mouth/Throat: Mucous Membranes Moist Skin: - - See wound note below Neurological: Alert and Oriented x 3 - Nutrition: Malnutrition Diagnosis/Plan Malnutrition Assessment by Registered Dietitian: Malnutrition Assessment Clinical Characteristics Chronic,Severe Malnutrition Assessment: < or = 75% energy needs x > or = 1 mo Criteria severe wt loss: 11% x 2 mos (>7.5% x 3 mos) temporal wasting Malnutrition Assessment: strawberry Glucerna with meals per provider Interventions order (ordered Ensure, but will send Glucerna given hx DM and hyperglycemia): 220 kcal, 10 g pro per serving Malnutrition Assessment: Goals 1. PO will improve to at least 50% of meals, with >50% acceptance of oral supplements 2. BG control will improve with appropriate insulin regimen (goal <180) 3. K+ will improve with repletion Result Diagrams: 05/10/18 05:20 05/10/18 05:20 Microbiology and Other Data: Microbiology 05/06/18 14:40 Urine Culture - Final Urine Escherichia Coli Normal Nelsy 05/06/18 14:40 Aerobic Blood Culture - Preliminary Blood Venous No Growth Day 1 Anaerobic Blood Culture - Preliminary No Growth Day 1 05/06/18 14:35 Aerobic Blood Culture - Preliminary Blood Venous No Growth Day 1 Anaerobic Blood Culture - Preliminary No Growth Day 1 Skin Deviation Note - Skin Deviation Findings Right upper buttock - open area measuring 0.4cm x 0.8 cm x 0.1 cm. Left upper posterior thigh - open area 1 cm x 1.2 cm x 0.1 cm. Assessment/Plan: Ms. Carter. 1. Buttocks/thigh - Barrier cream 2. Severe Malnutrition. As evidenced by weight loss and temporal wasting. Continue strawberry Glucerna with meals. 3. Diabetes Mellitus. Maintain good glycemic control to allow for wound healing. TIME SPENT: Wound Problem/Plan Assessment: Ms. Carter is a 78 y.o female with significant medical history including severe COPD, multiple issues with pneumonia, history of TAVR, coronary artery disease, chronic heart failure with ejection fraction of 30% to 35%, polyclonal hypergammaglobulinemia, history of chronic anemia with frequent transfusions in the past, chronic atrial fibrillation, pacemaker/AICD implantation, severe GERD and peptic ulcer disease, CKD stage 3, rheumatoid arthritis, hypothyroidism, hypertension, hyperlipidemia, history of gastric bypass surgery in the past, diabetic retinopathy, and insulin-dependent diabetes mellitus. who presented to the ER via EMS for episode of unresponsiveness suspected to be related to dehydration and adult failure to thrive. She was also found to have underlying UTI. Status and Disposition: discharge when medically stable
== END 2018-05-11 11:10 | disposition home or self-care (01) | DRG 640 ==
LOC: ED 12:36 → MEDTELE 15:19
PROVIDERS: ADMIT Internal Medicine; ATTEND Internal Medicine
PROC: 30233N1 Transfusion of Nonautologous Red Blood Cells into Peripheral Vein, Percutaneous Approach (ICD-10-PCS; principal; 2018-05-07)
DX: E86.0 Dehydration (principal); E43 Unspecified severe protein-calorie malnutrition; Z68.1 Body mass index [BMI] 19.9 or less, adult; N39.0 Urinary tract infection, site not specified; I13.0 Hypertensive heart and chronic kidney disease with heart failure and stage 1 through stage 4 chronic kidney disease, or unspecified chronic kidney disease; L97.129 Non-pressure chronic ulcer of left thigh with unspecified severity; R62.7 Adult failure to thrive; R34 Anuria and oliguria; I95.89 Other hypotension; E87.2 Acidosis; J44.9 Chronic obstructive pulmonary disease, unspecified; E83.42 Hypomagnesemia; E87.6 Hypokalemia; I50.9 Heart failure, unspecified; N18.3 Chronic kidney disease, stage 3 (moderate); E11.22 Type 2 diabetes mellitus with diabetic chronic kidney disease; D89.0 Polyclonal hypergammaglobulinemia; K21.9 Gastro-esophageal reflux disease without esophagitis; E03.9 Hypothyroidism, unspecified; I48.2 Chronic atrial fibrillation; R74.8 Abnormal levels of other serum enzymes; L98.419 Non-pressure chronic ulcer of buttock with unspecified severity; I07.1 Rheumatic tricuspid insufficiency; E11.319 Type 2 diabetes mellitus with unspecified diabetic retinopathy without macular edema; E83.51 Hypocalcemia; M06.9 Rheumatoid arthritis, unspecified; K27.9 Peptic ulcer, site unspecified, unspecified as acute or chronic, without hemorrhage or perforation; E78.5 Hyperlipidemia, unspecified; I25.10 Atherosclerotic heart disease of native coronary artery without angina pectoris; D64.9 Anemia, unspecified; B96.20 Unspecified Escherichia coli [E. coli] as the cause of diseases classified elsewhere; Z95.810 Presence of automatic (implantable) cardiac defibrillator; Z79.4 Long term (current) use of insulin; Z98.84 Bariatric surgery status; Z79.82 Long term (current) use of aspirin; Z79.51 Long term (current) use of inhaled steroids; Z79.899 Other long term (current) drug therapy; Z82.49 Family history of ischemic heart disease and other diseases of the circulatory system; Z83.3 Family history of diabetes mellitus; Z87.891 Personal history of nicotine dependence
CPT/HCPCS: 36415; 70450; 71045; 76775; 80048; 80053; 80320; 80329; 81003; 81015; 82140; 82550; 82803; 83605; 83735; 84134; 84443; 84484; 85025; 85027; 85610; 86850; 86900; 86901; 86922; 87040; 87077; 87086; 87186; 93005; 93306; 99285; A9270-GY; G0480; G8978-GP-CM; G8979-GP-CJ; G8987-GO-CL; G8988-GO-CI; J0696; J1815; J3475; J3480; P9016

== ENCOUNTER 2018-07-29 18:15 | Inpatient (IN) | payer MEDICARE, MEDICAID ==
--- NOTE | 2018-07-29 19:47 | ED ---
Complex/Multi-Sys Presentation - HPI Summary HPI Summary: A 78 y/o F with multiple comorbidities presents to ED for worsening pedal edema ongoing for past three weeks. Associated sx: SOB. Denies tarry stools. She uses an inhaler at home and nebulizer as needed. She has not had prior dialysis. She states being medication compliant, takes Torsemide 10 mg daily. She is not on blood thinners. She is scheduled for a blood appt. on 08/05/[address] Broderick , oncology. Patient last seen at [facility] on 05/06/18. - History Of Current Complaint Chief Complaint: EDGeneral Time Seen by Provider: 07/29/18 19:41 Hx Obtained From: Patient, Family/[employer] Onset/Duration: Gradual Onset, Lasting Weeks, Still Present Timing: Constant Severity Currently: Severe Severity Initially: Severe Associated Signs And Symptoms: Positive: SOB. Negative: Melena - Allergies/Home Medications Allergies/Adverse Reactions: Allergies Allergy/AdvReac Type Severity Reaction Status Date / Time codeine Allergy Rash Verified 07/29/18 18:30 levofloxacin [From Levaquin] Allergy Agitation Verified 07/29/18 18:30 Sulfa (Sulfonamide Allergy Hives Verified 07/29/18 18:30 Antibiotics) PMH/Surg Hx/FS Hx/Imm Hx Previously Healthy: No Endocrine/Hematology History: Reports: Hx Anticoagulant Therapy, Hx Blood Transfusions, Hx Diabetes, Hx Thyroid Disease, Hx Anemia, 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 Denies: Hx Systemic Lupus Erythematosus Cardiovascular History: Reports: Hx Angina, Hx Auto Implanted Cardiovert Defib, Hx Congestive Heart Failure, Hx Coronary Artery Disease, Hx Deep Vein Thrombosis - Man-made clot caused by nurse 40+ years ago, Hx Hypercholesterolemia, Hx Hypertension, Hx Pacemaker/ICD, Hx Valvular Heart Disease, Other Cardiovascular Problems/Disorders - Aortic valve replacement, bradycardia, cardiac catherization Denies: Hx Aneurysm, Hx Angioplasty, Hx Cardiac Arrest, Hx Cardiomegaly, Hx Congenital Heart Disease, Hx Embolism, Hx Myocardial Infarction, Hx Rheumatic Fever, Hx Syncope Respiratory History: Reports: Hx Asthma, Hx Chronic Obstructive Pulmonary Disease (COPD), Hx Pneumonia Denies: Hx Lung Cancer, Hx Sleep Apnea GI History: Reports: Hx Ulcer - Peptic ulcer disease, Other GI Disorders - gastric bypass Denies: Hx Gastroesophageal Reflux Disease History: Reports: Other Problems/Disorders - UTIs, CKD Denies: Hx Kidney Stones, Hx Renal Disease Musculoskeletal History: Reports: Hx Arthritis, Hx Rheumatoid Arthritis, Hx Back Problems, Hx Osteoporosis Denies: Hx Gout, Hx Orthopedic Injury Sensory History: Reports: Hx Contacts or Glasses, Hx Vision Problem Denies: Hx Cataracts, Hx Eye Injury, Hx Eye Prosthesis, Hx Deafness, Hx Hearing Aid, Hx Hearing Problem, Other Sensory Impairments Opthamlomology History: Reports: Hx Contacts or Glasses, Hx Vision Problem Denies: Hx Cataracts, Hx Eye Injury, Hx Eye Prosthesis, Other Sensory Impairments Neurological History: Reports: Hx Headaches Denies: Hx Dementia, Hx Developmental Delay, Hx Migraine, Hx Nerve Disease, Hx Seizures, Hx Spinal Cord Injury, Hx Transient Ischemic Attacks (TIA), Other Neuro Impairments/Disorders Psychiatric History: Reports: Hx Depression - Cancer History Cancer Type, Location and Year: Two sisters had breast cancer Hx Chemotherapy: No Hx Radiation Therapy: No - Surgical History Surgery Procedure, Year, and Place: Hysterectomy. Appendectomy. Tonsillectomy. Bilateral Knee Arthroscopy. Diabetic Retinopathy-eye surgery. GASTRIC BYPASS. Bilateral Cataract removal. Sinus Surgery. Florentin-en-y gastric bypass, 2007. Cholecystecomy 2009. Carpal Tunnel Surgery. Aortic Valve replacement, 2016, [facility] Anesthesia Reactions: No - Immunization History Date of Tetanus Vaccine: utd Date of Influenza Vaccine: utd Infectious Disease History: No Infectious Disease History: Reports: Hx Clostridium Difficile - History Denies: Hx Hepatitis, Hx Human Immunodeficiency Virus (HIV), Hx of Known/ Suspected MRSA, Hx Shingles, Hx Tuberculosis, Hx Known/Suspected VRE, Hx Known/ Suspected VRSA, History Other Infectious Disease, Traveled Outside the [place] in Last 30 Days - Family History Known Family History: Positive: Cardiac Disease, Diabetes, Other - Breast Cancer - Social History Occupation: Disabled Lives: With Family Alcohol Use: None Hx Substance Use: No Substance Use Type: Reports: None Hx Tobacco Use: Yes - quit > 20 yrs ago Smoking Status (MU): Former Smoker Type: Cigarettes Have You Smoked in the Last Year: No Review of Systems Positive: Shortness Of Breath Negative: Other - neg: bloody stool Positive: Edema All Other Systems Reviewed And Are Negative: Yes Physical Exam - Summary Physical Exam Summary: Appearance: Chronically ill appearing, mild to moderate distress Skin: warm, dry, reflects adequate perfusion Head/face: normal Eyes: EOMI, NEMO ENT: mucous membranes moist Neck: supple, non-tender, no sign of JVD Respiratory: Crackles all the way up bilaterally Cardiovascular: RRR, AV paced, pulses weak, pacemaker in L chest, elevated BP noted Abdomen: non-tender, soft Bowel Sounds: present Musculoskeletal: strength/ROM intact, 3+ pedal edema bilaterally above knees, mild R hand swelling Neuro: normal, sensory motor intact, A&Ox3 Triage Information Reviewed: Yes Vital Signs On Initial Exam: Initial Vitals Temp Pulse Resp BP Pulse Ox 98.1 F 62 22 178/73 98 07/29/18 18:26 07/29/18 18:26 07/29/18 18:26 07/29/18 18:26 07/29/18 18:26 Vital Signs Reviewed: Yes Diagnostics - Vital Signs Vital Signs Temp Pulse Resp BP Pulse Ox 07/29/18 18:26 98.1 F 62 22 178/73 98 - Laboratory Result Diagrams: 07/29/18 19:43 07/29/18 19:43 Lab Statement: Any lab studies that have been ordered have been reviewed, and results considered in the medical decision making process. - Radiology CXR Radiology Interpretation Completed By: ED Physician Summary of Radiographic Findings: CHF. - EKG 19:56 Cardiac Rate: NL ST Segment: Non-Specific EKG Comparison: No Significant Change - from EKG on 05/06/18 Summary of EKG Findings: EKG is paced at 60bpm. LBBB. Re-Evaluation - Re-Evaluation 1 Re-Evaluation Time: 20:45 Change: Unchanged Comment: Discussing plans for admission with family. Complex Multi-Symp Course/Dx Course Of Treatment: Nurse's notes reviewed. Chronically ill-appearing patient who is well-known to me in the ER. She is fluid overloaded today with heavy lower extremity edema. She was given IV Lasix and a catheter was placed. The hospitalist was contacted for her CHF including pulmonary edema. They will admit her for same. Blood pressures improving with IV medications. - Diagnoses Differential Diagnoses/HQI/PQRI: Metabolic Abnormality, Sepsis, Other - CHF, NE Provider Diagnoses: Acute CHF (congestive heart failure), Chronic anemia, Diabetes mellitus with hyperglycemia, Uncontrolled hypertension - Physician Notifications Discussed Care Of Patient With: Mingo King - hospitalist Time Discussed With Above Provider: 20:12 Instructed by Provider To: Admit As Inpatient - Critical Care Time Critical Care Time: 30-74 min - 30 mins CCT. CCT is EXCLUSIVE of separately billable procedures. Discharge - Sign-Out/Discharge Documenting (check all that apply): Patient Departure - ADMIT Patient Received Moderate/Deep Sedation with Procedure: No - Discharge Plan Condition: Guarded Disposition: ADMITTED TO [facility] Referrals: Vanesa Alexandra, MERINGUER [Primary Care Provider] - - Billing Disposition and Condition Condition: GUARDED Disposition: Admitted to [facility] - Attestation Statements Document Initiated by Scribe: Yes Documenting Scribe: Crow Pa Provider For Whom Scribe is Documenting (Include Credential): Dr. Michael Brian MD Scribe Attestation: Crow Brown scribed for Dr. Michael Brian MD on 07/29/18 at 2148. Scribe Documentation Reviewed: Yes Provider Attestation: The documentation as recorded by the Crow jc accurately reflects the service I personally performed and the decisions made by me, Dr. Michael Brian MD Status of Scribe Document: Viewed
[2018-07-29] MEDS ORDERED: Furosemide IV* 10 MG/ML 10 ML VIAL (100 MG) IV ONE (19:50)
[2018-07-29 19:59] LABS: ABS Eosinophils 0.1 10^3/ul (0-0.6); ABS Lymphocytes 0.9 10^3/ul (1.0-4.8); ABS Monocytes 0.3 10^3/ul (0-0.8); ABS Neutrophils 3.4 10^3/ul (1.5-7.7); Eosinophil % 2.1 %; Hematocrit 29 % (35-47); Hemoglobin 9.6 g/dL (12.0-16.0); Lymphocyte % 19.3 %; Mean Corpuscular HGB Conc 33 g/dL (31-36); Mean Corpuscular Hemoglobin 31 pg (27-31); Mean Corpuscular Volume 95 fL (80-97); Mean Platelet Volume 9.1 fL (7.4-10.4); Nucleated Red Blood Cells % 0.1; Platelet Count 133 10^3/uL (150-450); Red Blood Count 3.06 10^6 /uL (3.70-4.87); Red Cell Distribution Width 15 % (10-15); White Blood Count 4.7 10^3/uL (3.5-10.8)
[2018-07-29 20:05] LABS: INR 1.09 (0.82-1.09)
[2018-07-29 20:15] LABS: ALT 10 U/L (7-52); AST 11 U/L (13-39); Albumin 2.4 g/dL (3.2-5.2); Albumin/Globulin Ratio 0.7 (1-3); Alkaline Phosphatase 59 U/L (34-104); Anion Gap 7 mmol/L (2-11); BUN/Creatinine Ratio 45.1 (8-20); Blood Urea Nitrogen 51 mg/dL (6-24); CO2 Carbon Dioxide 21 mmol/L (22-32); Calcium 7.9 mg/dL (8.6-10.3); Chloride 106 mmol/L (101-111); EGFR African American 56.2 (>60); EGFR Non-African American 46.4 (>60); Globulin 3.6 g/dL (2-4); Glucose 356 mg/dL (70-100); Potassium 4.3 mmol/L (3.5-5.0); Sodium 134 mmol/L (135-145)
[2018-07-29 20:21] LABS: Troponin I 0.04 ng/mL (<0.04)
[2018-07-29] MEDS ORDERED: Insulin REGULAR(*) 1 UNITS UNIT IV PUSH ONE (20:38)
[2018-07-29 20:42] LABS: TSH (Thyroid Stimulating Horm) 4.15 mcIU/mL (0.34-5.60)
[2018-07-29] MEDS ORDERED: Albuterol 2.5 MG/3 ML NEB.SOL* (0.083%) INH PRN (22:49)
[2018-07-29] MEDS ORDERED: Albuterol HFA INHALER* 8 gm MDI INH PRN (22:49)
[2018-07-29] MEDS ORDERED: Ondansetron INJ* 2 MG/ML VIAL IV PRN (22:52)
[2018-07-29] MEDS ORDERED: Dextrose 50% Syringe 50 ML* 25 GM/50 ML SYRINGE IV PUSH PRN (23:02)
[2018-07-29 23:43] LABS: Troponin I 0.04 ng/mL (<0.04)
--- NOTE | 2018-07-30 01:09 | HP ---
CC: Vanesa Alexandra NP; Dr. Lowry * ADMISSION HISTORY AND PHYSICAL: DATE OF ADMISSION: 07/29/18 PRIMARY CARE PROVIDER: Vanesa Alexandra NP LIBRARY INFORMATION TECHNICIAN: Dr. Lowry. HEALTH CARE PROXY: Her son, Neel. CODE STATUS: Full. CHIEF COMPLAINT: Shortness of breath. SOURCE OF INFORMATION: History obtained from interview with the patient and her granddaughters and review of past medical records. RELIABILITY: Poor from patient. HISTORY OF PRESENT ILLNESS: This 78-year-old female with past medical history of severe systolic CHF, last known EF 30% to 35% as well as COPD, not on home oxygen; whose was last hospitalized at [facility] in April of 2018, had a stent and rehab, has generally been declining since that time, but more precipitously over the last 3 to 4 weeks with increasing shortness of breath, decreased energy , and increased unsteadiness. At baseline, she can walk approximately 10 feet with help with utilizing a walker and even this has been declining over the last month, now with some shortness of breath at rest. She has had an increasing fluid in her legs, hips, arms, and breast which is new to have fluid accumulation around her breast. She does not check her weight at home because she cannot stand on the scale, but notes a weight of a 126 at her doctor's office approximately 4 weeks prior, increased to 156 at her most recent visit today. She was seen by her physics professor, Edin Fall, who though that the patient looked fluid overloaded with increased edema per report and was sent to [facility] for further evaluation and/or admission. PAST MEDICAL HISTORY: Includes COPD; multiple histories of pneumonia, status post TAVR; CAD; systolic CHF, last known EF 30% to 35%; polyclonal hypergammaglobulinemia; anemia requiring transfusions; atrial fibrillation, permanent pacemaker; GERD; peptic ulcer disease; CKD; rheumatoid arthritis; hypothyroidism; hypertension; hyperlipidemia; insulin-dependent diabetes mellitus; status post gastric bypass Florentin-en-Y; hysterectomy; appendectomy; tonsillectomy; bilateral knee surgery; cholecystectomy; carpal tunnel release. MEDICATIONS: Home medication list reviewed: 1. Guaifenesin. 2. Torsemide 10 mg daily. 3. Simvastatin 20 mg daily. 4. Potassium chloride 20 mEq daily. 5. Pantoprazole 40 mg daily. 6. Nitroglycerin sublingual. 7. Lisinopril 2.5 mg daily. 8. Levothyroxine 50 mcg daily. 9. Ipratropium nasal 2 sprays both nares twice daily. 10. Insulin NPH 70/35 units subcutaneously twice daily with meals. 11. Ferrous sulfate 325 mg daily. 12. Diclofenac gel. 13. Vitamin B12 of 500 mcg twice daily. 14. Carvedilol 12.5 mg twice daily. 15. Calcium carbonate 1000 mg twice daily. 16. Caltrate plus D. 17. Aspirin 81 mg daily. 18. Ascorbic acid 500 mg daily. 19. Albuterol HFA inhaler twice every 6 hours as needed. 20. Albuterol nebulizer. 21. Acetaminophen 650 mg every 4 hours as needed. ALLERGIES: CODEINE, LEVOFLOXACIN, SULFA ANTIBIOTICS. FAMILY HISTORY: Significant for CAD and diabetes in both of her parents. SOCIAL HISTORY: Remote tobacco, quit approximately 48 years prior. No alcohol. Lives with her son and multiple granddaughters. REVIEW OF SYSTEMS: Increasing shortness of breath, decreased energy, increased unsteadiness, increased swelling, stable orthopnea. No syncope. No chest pain , nausea, vomiting, fevers or chills. All other systems reviewed is negative. PHYSICAL EXAMINATION GENERAL: Older than stated age, frail female, in no apparent distress. VITAL SIGNS: In the emergency room 178/73 when seen by this author, heart rate is 72, respiratory rate is 14, she is 98% on 2 L, T-max 98.1 HEENT: Oropharynx is clear. She has moist mucous membranes. Sclerae anicteric. She had elevated JVD. She has irregular rate and rhythm. 2/6 systolic ejection murmur in S3, loudest over the left upper sternal border. Her lungs have rales bilaterally up one-half on the left and up two-thirds on the right with decreased breath sounds, greatest in the right base. ABDOMEN: Soft, nontender, and nondistended. EXTREMITIES: Warm and well-perfused. She has 2+ bilateral pitting edema to the knees. She has diffuse anasarca with edema in her arms, abdomen, and upper back. NEUROLOGIC: She is alert and oriented x3. Her cranial nerves are intact. She has no apparent anxiety, agitation, or depression. LABORATORY DATA: Reviewed, notable for hemoglobin of 9.6, white blood cell count 4.7, BUN of 51, creatinine 1.1, glucose of 356, troponin I of 0.04. BNP is 1275. Data reviewed: Chest x-ray with this author's interpretation. Please await formal interpretation in the morning. Vascular congestion with pleural effusion on the right greater than left. EKG: Ventricular paced rhythm. ASSESSMENT AND PLAN: This is a 78-year-old female with multiple medical problems including severe systolic cardiac dysfunction, presenting with anasarca and increased shortness of breath. 1. Anasarca and increased shortness of breath in the setting of systolic heart failure exacerbation developing over multiple months, supported by at least 30- pound weight gain over the last 4 weeks. Kidney function indicates already some degree of prerenal dehydration, I believe diuresing this woman may be very difficult and can take a significant amount of time. She received 60 mg of Lasix in the emergency room. I have ordered and additional 40 mg IV to begin tomorrow, holding her torsemide. Strict Is and Os. We will place a Huynh catheter. Daily weights. I will fluid restrict her [id number] cc per day. She may require cardiology assistance and/or inotrope assisted diuresis. More realistically I think that she will benefit from a palliative care consultation , although I am not clear that she is prepared for this. She did indicate quite clearly she remains full code status. Continue all other home medications for heart failure including low-dose lisinopril and carvedilol. 2. Elevated troponin. Suspect demand in the setting of heart-failure exacerbation. Trend to ensure stability. 3. Type 2 diabetes. Holding regular insulin. She did receive 5 units in the emergency room for her hyperglycemia on presentation. Transition to sliding scale while hospitalized. 4. Hypertension. Suspect volume contributing significantly. Monitor now that she has received Lasix. Continue home medications otherwise. 5. DVT prophylaxis. Heparin subcu. [id number]/[facility] #: [id number] [facility]
[2018-07-30 05:27] LABS: ABS Eosinophils 0.1 10^3/ul (0-0.6); ABS Lymphocytes 0.9 10^3/ul (1.0-4.8); ABS Monocytes 0.3 10^3/ul (0-0.8); ABS Neutrophils 3.3 10^3/ul (1.5-7.7); Eosinophil % 2.9 %; Hematocrit 26 % (35-47); Hemoglobin 8.6 g/dL (12.0-16.0); Lymphocyte % 18.6 %; Mean Corpuscular HGB Conc 34 g/dL (31-36); Mean Corpuscular Hemoglobin 31 pg (27-31); Mean Corpuscular Volume 94 fL (80-97); Mean Platelet Volume 9.2 fL (7.4-10.4); Nucleated Red Blood Cells % 0.1; Platelet Count 120 10^3/uL (150-450); Red Blood Count 2.73 10^6 /uL (3.70-4.87); Red Cell Distribution Width 15 % (10-15); White Blood Count 4.6 10^3/uL (3.5-10.8)
[2018-07-30 05:37] LABS: Urine Appearance Cloudy; Urine Bacteria 1+ (Absent); Urine Bilirubin Negative (Negative); Urine Blood 2+ (Negative); Urine Color Yellow; Urine Glucose 2+(150 mg/dL) (Negative); Urine Ketones Negative (Negative); Urine Nitrite Positive (Negative); Urine Protein 1+(30 mg/dL) (Negative); Urine Red Blood Cell 2+(6-10/hpf) (Absent); Urine Specific Gravity 1.006 (1.010-1.030); Urine Urobilinogen Negative (Negative); Urine White Blood Cell 2+(11-20/hpf) (Absent)
[2018-07-30] MEDS: Heparin VIAL(*) 5000 UNITS/ML VIAL (FIVE THOUSAND) SUBCUT SCH ×3 (05:42→20:39)
[2018-07-30 05:43] LABS: BUN/Creatinine Ratio 45.1 (8-20); Calcium 7.5 mg/dL (8.6-10.3); EGFR African American 56.2 (>60); EGFR Non-African American 46.4 (>60); Magnesium 1.5 mg/dL (1.9-2.7); Potassium 3.6 mmol/L (3.5-5.0)
[2018-07-30] MEDS: Levothyroxine TAB* 50 MCG TAB PO SCH (05:48)
[2018-07-30] MEDS: Ferrous Sulfate TAB* 325 MG PO SCH (08:24)
[2018-07-30] MEDS: Insulin LISPRO* 1 UNITS UNIT SUBCUT SCH ×4 (08:24→20:38)
[2018-07-30] MEDS: Ascorbic Acid TAB* 500 MG PO SCH (08:24)
[2018-07-30] MEDS: Lisinopril TAB* 5 MG PO SCH (08:24)
[2018-07-30] MEDS: guaiFENesin ER TAB 600 MG PO SCH (08:24)
[2018-07-30] MEDS: Pantoprazole TAB * 40 MG TAB PO SCH (08:24)
[2018-07-30] MEDS: Carvedilol TAB* 6.25 MG PO SCH ×2 (08:24→20:37)
[2018-07-30] MEDS: Cyanocobalamin TAB* 500 MCG PO SCH ×2 (08:25→20:37)
[2018-07-30] MEDS: Aspirin 81 mg CHEW TAB* 81 MG TAB.CHEW PO SCH (08:25)
[2018-07-30] MEDS: Potassium Chlor TAB* 20 MEQ TAB.ER PO SCH (08:25)
[2018-07-30] MEDS: Atorvastatin* 10 MG TAB PO SCH (08:25)
[2018-07-30] MEDS: NFT: IPRATROPIUM BR (NF)0.03% NASAL 1 SPRAY BTL BOTH NARES SCH ×2 (08:27→20:34)
[2018-07-30] MEDS ORDERED: Furosemide IV* 10 MG/ML VIAL (40 MG) IV SLOW PU SCH (09:00)
--- NOTE | 2018-07-30 16:51 | PN ---
Subjective Date of Service: 07/30/18 Interval History: No subj change other than her legs may appear smaller to her today. Objective Active Medications: Acetaminophen (Tylenol Tab*) 650 mg PO Q4H PRN PRN Reason: FEVER/PAIN Albuterol (Ventolin 2.5 Mg/3 Ml Neb.Rivka*) 2.5 mg INH QID PRN PRN Reason: SHORTNESS OF BREATH Albuterol (Ventolin Hfa Inhaler*) 2 puff INH Q6H PRN PRN Reason: SHORTNESS OF BREATH Ascorbic Acid (Vitamin C Tab*) 500 mg PO DAILY [facility] Last Admin: 07/30/18 08:24 Dose: 500 mg Aspirin (Aspirin 81 Mg Chew Tab*) 81 mg PO DAILY [facility] Last Admin: 07/30/18 08:25 Dose: 81 mg Atorvastatin Calcium (Lipitor*) 10 mg PO DAILY [facility] Last Admin: 07/30/18 08:25 Dose: 10 mg Carvedilol (Coreg Tab*) 12.5 mg PO BID [facility] Last Admin: 07/30/18 08:24 Dose: 12.5 mg Cyanocobalamin (Vitamin B12 Tab*) 500 mcg PO BID [facility] Last Admin: 07/30/18 08:25 Dose: 500 mcg Dextrose (D50w Syringe 50 Ml*) 12.5 gm IV PUSH .FOR FS < 60 - SS PRN PRN Reason: FS < 60 Ferrous Sulfate (Ferrous Sulfate Tab*) 325 mg PO DAILY [facility] Last Admin: 07/30/18 08:24 Dose: 325 mg Furosemide (Lasix Iv*) 40 mg IV SLOW PU DAILY [facility] Last Admin: 07/30/18 08:25 Dose: 40 mg Guaifenesin (Mucinex*) 600 mg PO DAILY [facility] Last Admin: 07/30/18 08:24 Dose: 600 mg Heparin Sodium (Porcine) (Heparin Vial(*)) 5,000 units SUBCUT Q8HR [facility] Last Admin: 07/30/18 13:43 Dose: 5,000 units Insulin Human Lispro (Humalog*) 0 units SUBCUT ACHS [facility]; Protocol Last Admin: 07/30/18 11:36 Dose: 4 unit Ipratropium Troy (Ipratropium Troy) 2 spray BOTH NARES BID [facility] Last Admin: 07/30/18 08:27 Dose: Not Given Levothyroxine Sodium (Synthroid Tab*) 50 mcg PO DAILY@0600 [facility] Last Admin: 07/30/18 05:48 Dose: 50 mcg Lisinopril (Prinivil Tab*) 2.5 mg PO DAILY [facility] Last Admin: 07/30/18 08:24 Dose: 2.5 mg Ondansetron HCl (Zofran Inj*) 4 mg IV Q4H PRN PRN Reason: NAUSEA/VOMITING Pantoprazole Sodium (Protonix Tab*) 40 mg PO DAILY [facility] Last Admin: 07/30/18 08:24 Dose: 40 mg Potassium Chloride (Klor Con Er Tab*) 20 meq PO DAILY [facility] Last Admin: 07/30/18 08:25 Dose: 20 meq Vital Signs - 8 hr 07/30/18 11:31 Temperature 98.1 F Pulse Rate 61 Respiratory 17 Rate Blood Pressure 138/42 (mmHg) O2 Sat by Pulse 100 Oximetry Oxygen Devices in Use Now: Nasal Cannula Appearance: Alert, partly up in bed. In fair spirits. Looks weak but otherwise comfortable. Eyes: No Scleral Icterus Respiratory: Symmetrical Chest Expansion and Respiratory Effort, Clear to Percussion, - - diminished BS BL Cardiovascular: NL Sounds; No Murmurs; No JVD, RRR, No Edema Extremities: No Clubbing, Cyanosis, - - 2+ edema BL Skin: No Rash or Ulcers, No Nodules or Sclerosis Neurological: Alert and Oriented x 3, NL Sensation Result Diagrams: 07/30/18 05:08 07/30/18 05:08 Assess/Plan/Problems-Billing Assessment: - Patient Problems (1) Acute systolic (congestive) heart failure Current Visit: No Status: Acute Priority: Medium Code(s): I50.21 - ACUTE SYSTOLIC (CONGESTIVE) HEART FAILURE SNOMED Code(s): 126052917 Comment: - Last EF 30-35% in April Good neg fluid balance on IV furosemide 40 mg. Will try on po torsemide 20 mg . (2) COPD (chronic obstructive pulmonary disease) Current Visit: No Status: Acute Code(s): J44.9 - CHRONIC OBSTRUCTIVE PULMONARY DISEASE, UNSPECIFIED SNOMED Code(s): 82843782 Comment: -Continue Albuterol prn, guaifenesin. (3) HTN (hypertension) Current Visit: No Status: Chronic Code(s): I10 - ESSENTIAL (PRIMARY) HYPERTENSION SNOMED Code(s): 24894880 Comment: BP has fluctuated some. Continue home medication regimen and monitor BP. (4) Hypothyroid Current Visit: No Status: Chronic Code(s): E03.9 - HYPOTHYROIDISM, UNSPECIFIED SNOMED Code(s): 12018756 Comment: continue Levothyroxine at 50 mcg was increased on 05/07. TSH 4.15 07/29/18. (5) Anemia Current Visit: No Status: Acute Priority: Medium Onset Date: 06/28/14 Code(s): D64.9 - ANEMIA, UNSPECIFIED SNOMED Code(s): 640649544 Comment: ACD. At her baseline. (6) Diabetes Current Visit: No Status: Acute Code(s): E11.9 - TYPE 2 DIABETES MELLITUS WITHOUT COMPLICATIONS SNOMED Code(s): 44735865 Comment: Continue Lispro by SS.
[2018-07-30] MEDS: Acetaminophen TAB* 325 MG PO PRN (22:21)
[2018-07-31] MEDS: Levothyroxine TAB* 50 MCG TAB PO SCH (05:20)
[2018-07-31] MEDS: Heparin VIAL(*) 5000 UNITS/ML VIAL (FIVE THOUSAND) SUBCUT SCH ×3 (05:20→21:42)
[2018-07-31] MEDS: Insulin LISPRO* 1 UNITS UNIT SUBCUT SCH ×4 (08:25→22:09)
[2018-07-31] MEDS: Lisinopril TAB* 5 MG PO SCH (08:25)
[2018-07-31] MEDS: Atorvastatin* 10 MG TAB PO SCH (08:25)
[2018-07-31] MEDS: guaiFENesin ER TAB 600 MG PO SCH (08:25)
[2018-07-31] MEDS: NFT: IPRATROPIUM BR (NF)0.03% NASAL 1 SPRAY BTL BOTH NARES SCH ×2 (08:26→21:43)
[2018-07-31] MEDS: Ferrous Sulfate TAB* 325 MG PO SCH (08:26)
[2018-07-31] MEDS: Aspirin 81 mg CHEW TAB* 81 MG TAB.CHEW PO SCH (08:26)
[2018-07-31] MEDS: Carvedilol TAB* 6.25 MG PO SCH ×2 (08:26→21:41)
[2018-07-31] MEDS: Potassium Chlor TAB* 20 MEQ TAB.ER PO SCH (08:26)
[2018-07-31] MEDS: Cyanocobalamin TAB* 500 MCG PO SCH ×2 (08:26→21:42)
[2018-07-31] MEDS: Pantoprazole TAB * 40 MG TAB PO SCH (08:26)
[2018-07-31] MEDS: Ascorbic Acid TAB* 500 MG PO SCH (08:26)
[2018-07-31] MEDS: Torsemide TAB 10 MG PO SCH (08:26)
[2018-07-31] MEDS: Acetaminophen TAB* 325 MG PO PRN (10:31)
[2018-07-31] MEDS: Loperamide CAP* 2 MG PO PRN (10:57)
--- NOTE | 2018-07-31 13:42 | PN ---
Subjective Date of Service: 07/31/18 Interval History: C/O lack of energy. Objective Active Medications: Acetaminophen (Tylenol Tab*) 650 mg PO Q4H PRN PRN Reason: FEVER/PAIN Last Admin: 07/31/18 10:31 Dose: 650 mg Albuterol (Ventolin 2.5 Mg/3 Ml Neb.Rivka*) 2.5 mg INH QID PRN PRN Reason: SHORTNESS OF BREATH Albuterol (Ventolin Hfa Inhaler*) 2 puff INH Q6H PRN PRN Reason: SHORTNESS OF BREATH Ascorbic Acid (Vitamin C Tab*) 500 mg PO DAILY [facility] Last Admin: 07/31/18 08:26 Dose: 500 mg Aspirin (Aspirin 81 Mg Chew Tab*) 81 mg PO DAILY [facility] Last Admin: 07/31/18 08:26 Dose: 81 mg Atorvastatin Calcium (Lipitor*) 10 mg PO DAILY [facility] Last Admin: 07/31/18 08:25 Dose: 10 mg Carvedilol (Coreg Tab*) 12.5 mg PO BID [facility] Last Admin: 07/31/18 08:26 Dose: 12.5 mg Cyanocobalamin (Vitamin B12 Tab*) 500 mcg PO BID [facility] Last Admin: 07/31/18 08:26 Dose: 500 mcg Dextrose (D50w Syringe 50 Ml*) 12.5 gm IV PUSH .FOR FS < 60 - SS PRN PRN Reason: FS < 60 Ferrous Sulfate (Ferrous Sulfate Tab*) 325 mg PO DAILY [facility] Last Admin: 07/31/18 08:26 Dose: 325 mg Guaifenesin (Mucinex*) 600 mg PO DAILY [facility] Last Admin: 07/31/18 08:25 Dose: 600 mg Heparin Sodium (Porcine) (Heparin Vial(*)) 5,000 units SUBCUT Q8HR [facility] Last Admin: 07/31/18 13:16 Dose: 5,000 units Insulin Human Lispro (Humalog*) 0 units SUBCUT ACHS [facility]; Protocol Last Admin: 07/31/18 11:59 Dose: 1 unit Ipratropium Brilliant (Ipratropium Brilliant) 2 spray BOTH NARES BID [facility] Last Admin: 07/31/18 08:26 Dose: Not Given Levothyroxine Sodium (Synthroid Tab*) 50 mcg PO DAILY@0600 [facility] Last Admin: 07/31/18 05:20 Dose: 50 mcg Lisinopril (Prinivil Tab*) 2.5 mg PO DAILY [facility] Last Admin: 07/31/18 08:25 Dose: 2.5 mg Loperamide HCl (Imodium Cap*) 2 mg PO QID PRN PRN Reason: DIARRHEA Last Admin: 07/31/18 10:57 Dose: 2 mg Ondansetron HCl (Zofran Inj*) 4 mg IV Q4H PRN PRN Reason: NAUSEA/VOMITING Pantoprazole Sodium (Protonix Tab*) 40 mg PO DAILY [facility] Last Admin: 07/31/18 08:26 Dose: 40 mg Potassium Chloride (Klor Con Er Tab*) 20 meq PO DAILY [facility] Last Admin: 07/31/18 08:26 Dose: 20 meq Torsemide (Torsemide) 20 mg PO DAILY [facility] Last Admin: 07/31/18 08:26 Dose: 20 mg Vital Signs - 8 hr 07/31/18 07/31/18 07/31/18 09:21 10:57 12:06 Temperature 97.4 F 97.3 F Pulse Rate 62 61 Respiratory 17 20 20 Rate Blood Pressure 121/46 117/33 (mmHg) O2 Sat by Pulse 100 100 Oximetry Oxygen Devices in Use Now: Nasal Cannula Appearance: Alert, in a chair. In poor spirits, looks very fatigued/weak. Eyes: No Scleral Icterus Respiratory: Symmetrical Chest Expansion and Respiratory Effort, Clear to Auscultation, Clear to Percussion Cardiovascular: NL Sounds; No Murmurs; No JVD, RRR, No Edema, - Extremities: No Clubbing, Cyanosis, - - 1-2+ edema BL. RHeumatoid deformities both hands. Skin: No Rash or Ulcers, No Nodules or Sclerosis Neurological: Alert and Oriented x 3, NL Sensation Result Diagrams: 07/30/18 05:08 07/30/18 05:08 Assess/Plan/Problems-Billing Assessment: - Patient Problems (1) Acute systolic (congestive) heart failure Current Visit: No Status: Acute Priority: Medium Code(s): I50.21 - ACUTE SYSTOLIC (CONGESTIVE) HEART FAILURE SNOMED Code(s): 640522120 Comment: - Last EF 30-35% in April. ? low cardiac output syndrome. Repeat echo 08/01. Good neg fluid balance on IV furosemide 40 mg. Started po torsemide 20 mg daily on 07/31. (2) COPD (chronic obstructive pulmonary disease) Current Visit: No Status: Acute Code(s): J44.9 - CHRONIC OBSTRUCTIVE PULMONARY DISEASE, UNSPECIFIED SNOMED Code(s): 89064479 Comment: -Continue Albuterol prn, guaifenesin. (3) HTN (hypertension) Current Visit: No Status: Chronic Code(s): I10 - ESSENTIAL (PRIMARY) HYPERTENSION SNOMED Code(s): 31752562 Comment: BP has fluctuated some. Continue home medication regimen and monitor BP. (4) Hypothyroid Current Visit: No Status: Chronic Code(s): E03.9 - HYPOTHYROIDISM, UNSPECIFIED SNOMED Code(s): 41833971 Comment: continue Levothyroxine at 50 mcg was increased on 05/07. TSH 4.15 07/29/18. (5) Anemia Current Visit: No Status: Acute Priority: Medium Onset Date: 06/28/14 Code(s): D64.9 - ANEMIA, UNSPECIFIED SNOMED Code(s): 008193682 Comment: ACD. At her baseline. (6) Diabetes Current Visit: No Status: Acute Code(s): E11.9 - TYPE 2 DIABETES MELLITUS WITHOUT COMPLICATIONS SNOMED Code(s): 16659203 Comment: Continue Lispro by SS. (7) CKD (chronic kidney disease) stage 3, GFR 30-59 ml/min Current Visit: Yes Status: Acute Code(s): N18.3 - CHRONIC KIDNEY DISEASE, STAGE 3 (MODERATE) SNOMED Code(s): 068640176 Comment: Stable. Plan repeat BMP 08/02.
[2018-08-01] MEDS: Acetaminophen TAB* 325 MG PO PRN ×2 (00:02→21:20)
[2018-08-01] MEDS: Levothyroxine TAB* 50 MCG TAB PO SCH (05:41)
[2018-08-01] MEDS: Heparin VIAL(*) 5000 UNITS/ML VIAL (FIVE THOUSAND) SUBCUT SCH ×3 (05:42→21:20)
[2018-08-01] MEDS: Insulin LISPRO* 1 UNITS UNIT SUBCUT SCH ×4 (08:05→21:38)
[2018-08-01] MEDS: Ferrous Sulfate TAB* 325 MG PO SCH (08:56)
[2018-08-01] MEDS: Potassium Chlor TAB* 20 MEQ TAB.ER PO SCH (08:56)
[2018-08-01] MEDS: Lisinopril TAB* 5 MG PO SCH (08:56)
[2018-08-01] MEDS: Carvedilol TAB* 6.25 MG PO SCH ×2 (08:56→21:20)
[2018-08-01] MEDS: Ascorbic Acid TAB* 500 MG PO SCH (08:57)
[2018-08-01] MEDS: Pantoprazole TAB * 40 MG TAB PO SCH (08:57)
[2018-08-01] MEDS: Torsemide TAB 10 MG PO SCH (08:57)
[2018-08-01] MEDS: Atorvastatin* 10 MG TAB PO SCH (08:57)
[2018-08-01] MEDS: guaiFENesin ER TAB 600 MG PO SCH (08:57)
[2018-08-01] MEDS: Aspirin 81 mg CHEW TAB* 81 MG TAB.CHEW PO SCH (08:57)
[2018-08-01] MEDS: Cyanocobalamin TAB* 500 MCG PO SCH ×2 (08:57→21:20)
[2018-08-01] MEDS: NFT: IPRATROPIUM BR (NF)0.03% NASAL 1 SPRAY BTL BOTH NARES SCH (09:01)
--- NOTE | 2018-08-01 14:02 | PN ---
Subjective Date of Service: 08/01/18 Interval History: No new c/o. Patient states she is scared to go home. Objective Active Medications: Acetaminophen (Tylenol Tab*) 650 mg PO Q4H PRN PRN Reason: FEVER/PAIN Last Admin: 08/01/18 00:02 Dose: 650 mg Albuterol (Ventolin 2.5 Mg/3 Ml Neb.Rivka*) 2.5 mg INH QID PRN PRN Reason: SHORTNESS OF BREATH Albuterol (Ventolin Hfa Inhaler*) 2 puff INH Q6H PRN PRN Reason: SHORTNESS OF BREATH Ascorbic Acid (Vitamin C Tab*) 500 mg PO DAILY [facility] Last Admin: 08/01/18 08:57 Dose: 500 mg Aspirin (Aspirin 81 Mg Chew Tab*) 81 mg PO DAILY [facility] Last Admin: 08/01/18 08:57 Dose: 81 mg Atorvastatin Calcium (Lipitor*) 10 mg PO DAILY [facility] Last Admin: 08/01/18 08:57 Dose: 10 mg Carvedilol (Coreg Tab*) 12.5 mg PO BID [facility] Last Admin: 08/01/18 08:56 Dose: 12.5 mg Cyanocobalamin (Vitamin B12 Tab*) 500 mcg PO BID [facility] Last Admin: 08/01/18 08:57 Dose: 500 mcg Dextrose (D50w Syringe 50 Ml*) 12.5 gm IV PUSH .FOR FS < 60 - SS PRN PRN Reason: FS < 60 Ferrous Sulfate (Ferrous Sulfate Tab*) 325 mg PO DAILY [facility] Last Admin: 08/01/18 08:56 Dose: 325 mg Guaifenesin (Mucinex*) 600 mg PO DAILY [facility] Last Admin: 08/01/18 08:57 Dose: 600 mg Heparin Sodium (Porcine) (Heparin Vial(*)) 5,000 units SUBCUT Q8HR [facility] Last Admin: 08/01/18 05:42 Dose: 5,000 units Insulin Human Lispro (Humalog*) 0 units SUBCUT [facility]; Protocol Last Admin: 08/01/18 13:56 Dose: Not Given Ipratropium [place] (Ipratropium [place]) 2 spray BOTH NARES BID [facility] Last Admin: 08/01/18 09:01 Dose: Not Given Levothyroxine Sodium (Synthroid Tab*) 50 mcg PO DAILY@0600 [facility] Last Admin: 08/01/18 05:41 Dose: 50 mcg Lisinopril (Prinivil Tab*) 2.5 mg PO DAILY [facility] Last Admin: 08/01/18 08:56 Dose: 2.5 mg Loperamide HCl (Imodium Cap*) 2 mg PO QID PRN PRN Reason: DIARRHEA Last Admin: 07/31/18 10:57 Dose: 2 mg Ondansetron HCl (Zofran Inj*) 4 mg IV Q4H PRN PRN Reason: NAUSEA/VOMITING Pantoprazole Sodium (Protonix Tab*) 40 mg PO DAILY [facility] Last Admin: 08/01/18 08:57 Dose: 40 mg Potassium Chloride (Klor Con Er Tab*) 20 meq PO DAILY [facility] Last Admin: 08/01/18 08:56 Dose: 20 meq Torsemide (Torsemide) 20 mg PO DAILY [facility] Last Admin: 08/01/18 08:57 Dose: 20 mg Vital Signs - 8 hr 08/01/18 08/01/18 08:00 08:07 Temperature 97.9 F Pulse Rate 59 Respiratory 16 12 Rate Blood Pressure 119/42 (mmHg) O2 Sat by Pulse 100 Oximetry Oxygen Devices in Use Now: Nasal Cannula Appearance: Alert, in a chair. Looks fatigued and/or discouraged, otherwise comfortable. Eyes: No Scleral Icterus Respiratory: Symmetrical Chest Expansion and Respiratory Effort, Clear to Auscultation, Clear to Percussion Cardiovascular: NL Sounds; No Murmurs; No JVD, RRR, No Edema, - Extremities: No Clubbing, Cyanosis, - - Tr edema BL Skin: No Rash or Ulcers, No Nodules or Sclerosis, - Neurological: Alert and Oriented x 3, NL Sensation Result Diagrams: 07/30/18 05:08 08/01/18 14:00 Microbiology and Other Data: Microbiology 07/30/18 05:20 Urine Culture - Final Urine Klebsiella Pneumoniae Assess/Plan/Problems-Billing Assessment: - Patient Problems (1) Acute systolic (congestive) heart failure Current Visit: No Status: Acute Priority: Medium Code(s): I50.21 - ACUTE SYSTOLIC (CONGESTIVE) HEART FAILURE SNOMED Code(s): 272711119 Comment: - Last EF 30-35% in April. ? low cardiac output syndrome. Repeat echo 08/01. Good neg fluid balance on IV furosemide 40 mg. Started po torsemide 20 mg daily on 07/31. BUN and creatinine increased 08/01 PM, reduce torsemide to 20 mg q 48 hr start . Fup BMP 08/06 as outpt. (2) COPD (chronic obstructive pulmonary disease) Current Visit: No Status: Acute Code(s): J44.9 - CHRONIC OBSTRUCTIVE PULMONARY DISEASE, UNSPECIFIED SNOMED Code(s): 49491987 Comment: -Continue Albuterol prn, guaifenesin. (3) HTN (hypertension) Current Visit: No Status: Chronic Code(s): I10 - ESSENTIAL (PRIMARY) HYPERTENSION SNOMED Code(s): 54717297 Comment: BP has fluctuated some. Continue home medication regimen and monitor BP. (4) Hypothyroid Current Visit: No Status: Chronic Code(s): E03.9 - HYPOTHYROIDISM, UNSPECIFIED SNOMED Code(s): 93761484 Comment: continue Levothyroxine at 50 mcg was increased on 05/07. TSH 4.15 07/29/18. (5) Anemia Current Visit: No Status: Acute Priority: Medium Onset Date: 06/28/14 Code(s): D64.9 - ANEMIA, UNSPECIFIED SNOMED Code(s): 073538145 Comment: ACD. At her baseline. (6) Diabetes Current Visit: No Status: Acute Code(s): E11.9 - TYPE 2 DIABETES MELLITUS WITHOUT COMPLICATIONS SNOMED Code(s): 30425294 Comment: Continue Lispro by SS. (7) CKD (chronic kidney disease) stage 3, GFR 30-59 ml/min Current Visit: Yes Status: Acute Code(s): N18.3 - CHRONIC KIDNEY DISEASE, STAGE 3 (MODERATE) SNOMED Code(s): 855457131 Comment: Stable. Plan repeat BMP 08/02.
[2018-08-01 14:25] LABS: BUN/Creatinine Ratio 41.9 (8-20); Calcium 7.7 mg/dL (8.6-10.3); EGFR African American 48.2 (>60); EGFR Non-African American 39.9 (>60)
[2018-08-01 14:27] LABS: Potassium 5.1 mmol/L (3.5-5.0)
--- NOTE | 2018-08-01 16:26 | ECHO ---
*[facility]* [place] [address] Fax #: [phone] Transthoracic Echocardiogram Patient: Emma, Height: 65 in / Brittanie A 165.1 cm : 1940 Weight: 164.7 lb / Study Date: 08/01/2018 74.8 kg Age: 78 BP: 120 / 43 Gender: F BMI/BSA: 27.5 HR: 65 bpm kg/m^2 / 1.82 m^2 *Radiology Specialist: * Viri Hall [facility] *Referring Physician: * Cruzito Mccormick *Reading Physician: * Gino Marroquin MD Indications: Congestive Heart Failure. History: Coronary artery disease. Congestive heart failure. Chronic obstructive pulmonary disease. Risk factors: Former tobacco use. Hypertension. Hyperlipidemia. Labs, prior tests, procedures, and surgery: Transvascular aortic valve replacement (2016). Permanent pacemaker system implantation. Conclusions Summary: 1. Left ventricle: Systolic function is moderately reduced. The estimated ejection fraction is 30-35%. Moderate diffuse hypokinesis. 2. Right ventricle: Systolic function is normal. 3. Ventricular septum: There is abnormal interventricular septal wall motion consistent with an RV pacemaker. 4. Mitral valve: There is mild to moderate regurgitation. 5. Aortic valve: There is trace to mild regurgitation. 6. Pericardium, extracardiac: There is no significant pericardial effusion. 7. Cmpared to study of 05/06/18, there is little change. However compared to study of 04/13/16, the left ventricle dysfunction is new. Study data: Transthoracic echocardiogram. Procedure: Transthoracic echocardiography was performed. Image quality was good. Complete 2D, spectral Doppler, and color flow Doppler. Location: Bedside. Patient status: Inpatient. Patient room number: 446-1. Rhythm: Paced rhythm. Findings Left ventricle: The cavity size is normal. There is mmild to moderate concentric hypertrophy. Systolic function is moderately reduced. The estimated ejection fraction is 30-35%. Moderate diffuse hypokinesis. Doppler parameters are consistent with abnormal left ventricular relaxation (grade 1 diastolic dysfunction). Right ventricle: The cavity size is mildly dilated. Pacer wire noted in the right ventricle. Systolic function is normal. Ventricular septum: There is abnormal interventricular septal wall motion consistent with an RV pacemaker. Left atrium: The atrium is moderately to severely dilated. Right atrium: The atrium is mildly dilated. Pacer wire noted in right atrium. Mitral valve: The annulus is calcified. The leaflets are mildly thickened. There is no evidence of stenosis. There is mild to moderate regurgitation. Aortic valve: There is a bioprosthetic valve. The leaflets are normal thickness. There is no evidence of stenosis. There is trace to mild regurgitation. Tricuspid valve: The leaflets are normal thickness. There is no evidence of stenosis. There is moderate regurgitation. Pulmonic valve: The leaflets are normal thickness. There is no evidence of stenosis. There is mild regurgitation. Aorta: Ascending aorta: The ascending aorta is appears normal. Aortic arch: The aortic arch is appears normal. The aortic root is not dilated. Pericardium: There is no significant pericardial effusion. Pulmonary arteries: The main pulmonary artery is normal-sized. Systemic veins: Inferior vena cava: The vessel is normal in size. The respirophasic diameter changes are blunted (< 50%). Measurements Left ventricle Value Ref Aortic valve continued Value Ref ANABELL, LAX 4.6 cm 3.8 - 5.2 LVOT/AV, VTI ratio 0.5 ----- ESD, LAX 3.0 cm 2.2 - 3.5 AR peak v 3.81 m/sec ----- FS, LAX 36 % 27 - 45 AR PHT 497 ms ----- PW, ED, LAX (H) 1.3 cm 0.6 - 0.9 AR peak grad 58 mm Hg ----- FS 36 % 27 - 45 PW, ED (H) 1.3 cm 0.6 - 0.9 Mitral valve Value Ref E', lat yancy, TDI (L) 3.0 cm/sec >=10.0 Peak E 0.96 m/sec - ---- E/e', lat yancy, 32 Peak A 1.2 m/sec ---- - TDI Decel time 201 ms ----- E', med yancy, TDI (L) 3.0 cm/sec >=7.0 PHT 115 ms - ---- E/e', med yancy, 32 Mean grad, D 4.0 mm Hg ---- - TDI Peak grad, D 9.0 mm Hg ----- E', avg, TDI 3.0 cm/sec Peak E/A ratio 0.8 ---- - E/e', avg, TDI (H) 32 <=14 MVA, PHT 1.9 cm^2 - ---- ERO, PISA 0.07 cm^2 ----- LVOT Value Ref MR vol, PISA 17 ml ----- Peak jacinto, S 0.82 m/sec VTI, S 20.0 cm Pulmonic valve Value Ref Mean grad, S 1 mm Hg Peak v, S 0.96 m/sec ----- Peak grad, S 4.0 mm Hg ----- Ventricular septum Value Ref CT v, ED 1.86 m/sec ----- IVS, ED (H) 1.3 cm 0.6 - 0.9 CT grad, ED 14 mm Hg ----- Right ventricle Value Ref Tricuspid valve Value Ref ANABELL, LAX 3.6 cm TR peak v (H) 3.9 m/sec <=2.8 ANABELL minor ax, A4C (H) 4.3 cm 1.9 - 3.5 Peak RV-RA grad, S 61 mm Hg ----- mid Pressure, S 69 mm Hg Aortic root Value Ref Root diam 2.3 cm <4.0 Left atrium Value Ref AP dim, ES (H) 4.50 cm 2.70 - Ascending aorta Value Ref 3.80 AAo AP diam, S 2.8 cm ----- ML dim, A4C 5.5 cm SI dim, A4C 5.9 cm Aortic arch Value Ref Vol/bsa, ES, 1-p 39 ml/m^2 11 - 40 Arch diam 2.2 cm ----- A4C Vol/bsa, ES, A/L (H) 50 ml/m^2 16 - 34 Decending aorta Value Ref Cecelia peak jacinto 0.57 m/sec ----- Right atrium Value Ref SI dim, ES 5.2 cm 3.4 - 5.3 Pulmonary artery Value Ref ML dim, ES, A4C (H) 4.9 cm 2.6 - 4.4 Pressure, S 65.0 mm Hg ----- SI dim, ES, A4C 5.2 cm 3.4 - 5.3 Estimated RAP 8 mm Hg Inferior vena cava Value Ref Diam 2.1 cm ----- Aortic valve Value Ref Yancy diam, ED 1.8 cm Peak v, S 1.77 m/sec VTI, S 40.2 cm Mean grad, S 6.0 mm Hg Peak grad, S 13.0 mm Hg Legend: (L) and (H) kieran values outside specified reference range. Prepared and electronically signed by Gino Marroquin MD 08/01/2018 16:25
[2018-08-01] MEDS ORDERED: Al Hydrox/Mg Hydrox/Simet LIQ* 30 ML UDC PO PRN (19:36)
[2018-08-02] MEDS: Levothyroxine TAB* 50 MCG TAB PO SCH (05:34)
[2018-08-02] MEDS: Heparin VIAL(*) 5000 UNITS/ML VIAL (FIVE THOUSAND) SUBCUT SCH ×3 (05:34→22:34)
[2018-08-02] MEDS: Insulin LISPRO* 1 UNITS UNIT SUBCUT SCH ×4 (07:53→22:32)
[2018-08-02] MEDS: Cyanocobalamin TAB* 500 MCG PO SCH ×2 (08:01→19:39)
[2018-08-02] MEDS: Lisinopril TAB* 5 MG PO SCH (08:01)
[2018-08-02] MEDS: Carvedilol TAB* 6.25 MG PO SCH ×2 (08:01→19:39)
[2018-08-02] MEDS: Ferrous Sulfate TAB* 325 MG PO SCH (08:01)
[2018-08-02] MEDS: Aspirin 81 mg CHEW TAB* 81 MG TAB.CHEW PO SCH (08:01)
[2018-08-02] MEDS: Atorvastatin* 10 MG TAB PO SCH (08:01)
[2018-08-02] MEDS: Ascorbic Acid TAB* 500 MG PO SCH (08:01)
[2018-08-02] MEDS: Pantoprazole TAB * 40 MG TAB PO SCH (08:01)
[2018-08-02] MEDS: guaiFENesin ER TAB 600 MG PO SCH (08:01)
--- NOTE | 2018-08-02 10:27 | PN ---
Subjective Date of Service: 08/02/18 Interval History: Patient having severe intractable diarrhea this AM. She has a history of milder diarrhea intermittently. No laxatives given. She has abdominal pain, mild. She did not get out of bed this AM with PT. She states her legs feel too heavy. Denies dyspnea. Family History: Unchanged from Admission Social History: Unchanged from Admission Past Medical History: Unchanged from Admission Objective Active Medications: Acetaminophen (Tylenol Tab*) 650 mg PO Q4H PRN PRN Reason: FEVER/PAIN Last Admin: 08/01/18 21:20 Dose: 650 mg Albuterol (Ventolin 2.5 Mg/3 Ml Neb.Rivka*) 2.5 mg INH QID PRN PRN Reason: SHORTNESS OF BREATH Albuterol (Ventolin Hfa Inhaler*) 2 puff INH Q6H PRN PRN Reason: SHORTNESS OF BREATH Ascorbic Acid (Vitamin C Tab*) 500 mg PO DAILY [facility] Last Admin: 08/02/18 08:01 Dose: 500 mg Aspirin (Aspirin 81 Mg Chew Tab*) 81 mg PO DAILY [facility] Last Admin: 08/02/18 08:01 Dose: 81 mg Atorvastatin Calcium (Lipitor*) 10 mg PO DAILY [facility] Last Admin: 08/02/18 08:01 Dose: 10 mg Carvedilol (Coreg Tab*) 12.5 mg PO BID [facility] Last Admin: 08/02/18 08:01 Dose: 12.5 mg Cyanocobalamin (Vitamin B12 Tab*) 500 mcg PO BID [facility] Last Admin: 08/02/18 08:01 Dose: 500 mcg Dextrose (D50w Syringe 50 Ml*) 12.5 gm IV PUSH .FOR FS < 60 - SS PRN PRN Reason: FS < 60 Ferrous Sulfate (Ferrous Sulfate Tab*) 325 mg PO DAILY [facility] Last Admin: 08/02/18 08:01 Dose: 325 mg Guaifenesin (Mucinex*) 600 mg PO DAILY [facility] Last Admin: 08/02/18 08:01 Dose: 600 mg Heparin Sodium (Porcine) (Heparin Vial(*)) 5,000 units SUBCUT Q8HR [facility] Last Admin: 08/02/18 05:34 Dose: 5,000 units Insulin Human Lispro (Humalog*) 0 units SUBCUT ACHS [facility]; Protocol Last Admin: 08/02/18 07:53 Dose: Not Given Ipratropium [place] (Ipratropium [place]) 2 spray BOTH NARES BID [facility] Last Admin: 08/01/18 09:01 Dose: Not Given Levothyroxine Sodium (Synthroid Tab*) 50 mcg PO DAILY@0600 [facility] Last Admin: 08/02/18 05:34 Dose: 50 mcg Lisinopril (Prinivil Tab*) 2.5 mg PO DAILY [facility] Last Admin: 08/02/18 08:01 Dose: 2.5 mg Loperamide HCl (Imodium Cap*) 2 mg PO QID PRN PRN Reason: DIARRHEA Last Admin: 07/31/18 10:57 Dose: 2 mg Ondansetron HCl (Zofran Inj*) 4 mg IV Q4H PRN PRN Reason: NAUSEA/VOMITING Pantoprazole Sodium (Protonix Tab*) 40 mg PO DAILY [facility] Last Admin: 08/02/18 08:01 Dose: 40 mg Torsemide (Torsemide) 20 mg PO Q48H [facility] Vital Signs - 8 hr 08/02/18 08/02/18 08/02/18 03:24 07:47 08:00 Temperature 37.2 C 36.9 C Pulse Rate 60 59 Respiratory 20 18 18 Rate Blood Pressure 127/46 130/42 (mmHg) O2 Sat by Pulse 99 96 Oximetry Oxygen Devices in Use Now: Nasal Cannula Appearance: elderly, alert, no distress Eyes: No Scleral Icterus Ears/Nose/Mouth/Throat: Clear Oropharnyx Neck: No Thyroid Enlargement, Masses Respiratory: Symmetrical Chest Expansion and Respiratory Effort, Clear to Auscultation Cardiovascular: NL Sounds; No Murmurs; No JVD, RRR Abdominal: NL Sounds; No Tenderness; No Distention, No Hepatosplenomegaly Extremities: - - 2+ edema bilat LE Skin: No Rash or Ulcers Lines/Tubes/Other Access: Clean, Dry and Intact [place], Clean, Dry and Intact Peripheral IV Nutrition: Taking PO's Result Diagrams: 07/30/18 05:08 08/01/18 14:00 Microbiology and Other Data: Microbiology 07/30/18 05:20 Urine Culture - Final Urine Klebsiella Pneumoniae Assess/Plan/Problems-Billing Assessment: 78 year old woman with CHF exacerbation, COPD, mobility issues - Patient Problems (1) CHF (congestive heart failure) Current Visit: No Status: Acute Priority: High Code(s): I50.9 - HEART FAILURE, UNSPECIFIED SNOMED Code(s): 94560654 Comment: -Compensated. -Continue Carvedilol, lisinopril, lower dose torsemide. -Recheck BMP in AM (2) Diarrhea Current Visit: No Status: Acute Priority: Medium Code(s): R19.7 - DIARRHEA , UNSPECIFIED SNOMED Code(s): 76759010 Comment: -No recent antibiotic exposure -due to abdominal pain, severe diarrhea, check C diff -immodium available prn Status and Disposition: We are advising short term rehab Counseling and/or Coordination of Care Minutes: Spoke with son, asked for family meeting
[2018-08-02] MEDS: NFT: IPRATROPIUM BR (NF)0.03% NASAL 1 SPRAY BTL BOTH NARES SCH (13:46)
[2018-08-03] MEDS: Levothyroxine TAB* 50 MCG TAB PO SCH (05:30)
[2018-08-03] MEDS: Heparin VIAL(*) 5000 UNITS/ML VIAL (FIVE THOUSAND) SUBCUT SCH ×3 (05:30→20:21)
[2018-08-03 06:39] LABS: ABS Eosinophils 0.2 10^3/ul (0-0.6); ABS Lymphocytes 0.9 10^3/ul (1.0-4.8); ABS Monocytes 0.2 10^3/ul (0-0.8); ABS Neutrophils 3.2 10^3/ul (1.5-7.7); Eosinophil % 4.4 %; Hematocrit 25 % (35-47); Hemoglobin 8.3 g/dL (12.0-16.0); Mean Corpuscular HGB Conc 33 g/dL (31-36); Mean Corpuscular Hemoglobin 31 pg (27-31); Mean Corpuscular Volume 94 fL (80-97); Mean Platelet Volume 10.2 fL (7.4-10.4); Platelet Count 118 10^3/uL (150-450); Red Blood Count 2.64 10^6 /uL (3.70-4.87); Red Cell Distribution Width 15 % (10-15); White Blood Count 4.6 10^3/uL (3.5-10.8)
[2018-08-03 06:53] LABS: BUN/Creatinine Ratio 46.4 (8-20); Calcium 7.8 mg/dL (8.6-10.3); EGFR Non-African American 47.9 (>60); Potassium 4.7 mmol/L (3.5-5.0)
[2018-08-03] MEDS: NFT: IPRATROPIUM BR (NF)0.03% NASAL 1 SPRAY BTL BOTH NARES SCH ×3 (07:48→20:21)
[2018-08-03] MEDS: Insulin LISPRO* 1 UNITS UNIT SUBCUT SCH ×4 (09:46→20:20)
[2018-08-03] MEDS: Lisinopril TAB* 5 MG PO SCH (10:23)
[2018-08-03] MEDS: Pantoprazole TAB * 40 MG TAB PO SCH (10:25)
[2018-08-03] MEDS: Atorvastatin* 10 MG TAB PO SCH (10:25)
[2018-08-03] MEDS: guaiFENesin ER TAB 600 MG PO SCH (10:26)
[2018-08-03] MEDS: Carvedilol TAB* 6.25 MG PO SCH ×2 (10:27→20:20)
[2018-08-03] MEDS: Torsemide TAB 10 MG PO SCH (10:27)
[2018-08-03] MEDS: Aspirin 81 mg CHEW TAB* 81 MG TAB.CHEW PO SCH (10:28)
[2018-08-03] MEDS: Cyanocobalamin TAB* 500 MCG PO SCH ×2 (10:29→20:20)
[2018-08-03] MEDS: Ascorbic Acid TAB* 500 MG PO SCH (10:29)
[2018-08-03] MEDS: Ferrous Sulfate TAB* 325 MG PO SCH (10:29)
--- NOTE | 2018-08-03 12:23 | PN ---
Subjective Date of Service: 08/03/18 Interval History: Patient has no new complaints. She has not had diarrhea since yesterday morning. She has participated with PT, got up to chair. Tolerating POs. Willing now to go to different SNF for rehab. Family History: Unchanged from Admission Social History: Unchanged from Admission Past Medical History: Unchanged from Admission Objective Active Medications: Acetaminophen (Tylenol Tab*) 650 mg PO Q4H PRN PRN Reason: FEVER/PAIN Last Admin: 08/01/18 21:20 Dose: 650 mg Albuterol (Ventolin 2.5 Mg/3 Ml Neb.Rivka*) 2.5 mg INH QID PRN PRN Reason: SHORTNESS OF BREATH Albuterol (Ventolin Hfa Inhaler*) 2 puff INH Q6H PRN PRN Reason: SHORTNESS OF BREATH Ascorbic Acid (Vitamin C Tab*) 500 mg PO DAILY [facility] Last Admin: 08/03/18 10:29 Dose: 500 mg Aspirin (Aspirin 81 Mg Chew Tab*) 81 mg PO DAILY [facility] Last Admin: 08/03/18 10:28 Dose: 81 mg Atorvastatin Calcium (Lipitor*) 10 mg PO DAILY [facility] Last Admin: 08/03/18 10:25 Dose: 10 mg Carvedilol (Coreg Tab*) 12.5 mg PO BID [facility] Last Admin: 08/03/18 10:27 Dose: 12.5 mg Cyanocobalamin (Vitamin B12 Tab*) 500 mcg PO BID [facility] Last Admin: 08/03/18 10:29 Dose: 500 mcg Dextrose (D50w Syringe 50 Ml*) 12.5 gm IV PUSH .FOR FS < 60 - SS PRN PRN Reason: FS < 60 Ferrous Sulfate (Ferrous Sulfate Tab*) 325 mg PO DAILY [facility] Last Admin: 08/03/18 10:29 Dose: 325 mg Guaifenesin (Mucinex*) 600 mg PO DAILY [facility] Last Admin: 08/03/18 10:26 Dose: 600 mg Heparin Sodium (Porcine) (Heparin Vial(*)) 5,000 units SUBCUT Q8HR [facility] Last Admin: 08/03/18 05:30 Dose: 5,000 units Insulin Human Lispro (Humalog*) 0 units SUBCUT ACHS [facility]; Protocol Last Admin: 08/03/18 09:46 Dose: Not Given Ipratropium [place] (Ipratropium [place]) 2 spray BOTH NARES BID [facility] Last Admin: 08/03/18 09:46 Dose: Not Given Levothyroxine Sodium (Synthroid Tab*) 50 mcg PO DAILY@0600 [facility] Last Admin: 08/03/18 05:30 Dose: 50 mcg Lisinopril (Prinivil Tab*) 2.5 mg PO DAILY [facility] Last Admin: 08/03/18 10:23 Dose: 2.5 mg Loperamide HCl (Imodium Cap*) 2 mg PO QID PRN PRN Reason: DIARRHEA Last Admin: 07/31/18 10:57 Dose: 2 mg Ondansetron HCl (Zofran Inj*) 4 mg IV Q4H PRN PRN Reason: NAUSEA/VOMITING Pantoprazole Sodium (Protonix Tab*) 40 mg PO DAILY [facility] Last Admin: 08/03/18 10:25 Dose: 40 mg Torsemide (Torsemide) 20 mg PO Q48H [facility] Last Admin: 08/03/18 10:27 Dose: 20 mg Vital Signs - 8 hr 08/03/18 07:42 Temperature 36.6 C Pulse Rate 64 Respiratory 16 Rate Blood Pressure 138/52 (mmHg) O2 Sat by Pulse 98 Oximetry Oxygen Devices in Use Now: None Appearance: sitting up, alert, no distress Eyes: No Scleral Icterus Ears/Nose/Mouth/Throat: NL Teeth, Lips, Gums Neck: NL Appearance and Movements; NL JVP Respiratory: Symmetrical Chest Expansion and Respiratory Effort, Clear to Auscultation Cardiovascular: NL Sounds; No Murmurs; No JVD, RRR, - - 2+ edema bilat LE Abdominal: NL Sounds; No Tenderness; No Distention Lymphatic: No Cervical Adenopathy Neurological: Alert and Oriented x 3 Lines/Tubes/Other Access: Clean, Dry and Intact Peripheral IV Nutrition: Taking PO's Result Diagrams: 08/03/18 06:03 08/03/18 06:03 Microbiology and Other Data: Microbiology 08/02/18 09:51 Stool Stool Gross Appearance - Final 08/02/18 09:51 Stool C. difficile DNA Amplification - Final 027 Presumptive NEGATIVE Toxigenic C.diff NEGATIVE 07/30/18 05:20 Urine Urine Culture - Final Klebsiella Pneumoniae Assess/Plan/Problems-Billing Assessment: 78 year old woman with CHF exacerbation, COPD, mobility issues - Patient Problems (1) CHF (congestive heart failure) Current Visit: Yes Status: Acute Priority: High Code(s): I50.9 - HEART FAILURE, UNSPECIFIED SNOMED Code(s): 98095056 Comment: -Compensated. -Continue Carvedilol, lisinopril, lower dose torsemide. (2) Diarrhea Current Visit: Yes Status: Acute Priority: Medium Code(s): R19.7 - DIARRHEA, UNSPECIFIED SNOMED Code(s): 99858543 Comment: -No recent antibiotic exposure -C diff negative -Appears resolved (3) DVT prophylaxis Current Visit: Yes Status: Acute Priority: Low Code(s): JTR9673 - SNOMED Code(s): 524170481 Comment: -Continue SC heparin Status and Disposition: We are advising short term rehab, she accepts idea. Counseling and/or Coordination of Care Minutes: discussed with son and granddaughter, they agree with SNF
[2018-08-03] MEDS: Insulin GLARGINE(*) 1 UNITS UNIT SUBCUT SCH (13:00)
[2018-08-04] MEDS: Heparin VIAL(*) 5000 UNITS/ML VIAL (FIVE THOUSAND) SUBCUT SCH ×3 (05:17→21:00)
[2018-08-04] MEDS: Levothyroxine TAB* 50 MCG TAB PO SCH (05:17)
[2018-08-04] MEDS: Insulin LISPRO* 1 UNITS UNIT SUBCUT SCH ×4 (07:52→21:00)
[2018-08-04] MEDS: Loperamide CAP* 2 MG PO PRN (08:47)
[2018-08-04] MEDS: Cyanocobalamin TAB* 500 MCG PO SCH ×2 (08:47→21:00)
[2018-08-04] MEDS: guaiFENesin ER TAB 600 MG PO SCH (08:47)
[2018-08-04] MEDS: Ascorbic Acid TAB* 500 MG PO SCH (08:47)
[2018-08-04] MEDS: Ferrous Sulfate TAB* 325 MG PO SCH (08:47)
[2018-08-04] MEDS: Atorvastatin* 10 MG TAB PO SCH (08:48)
[2018-08-04] MEDS: Carvedilol TAB* 6.25 MG PO SCH ×2 (08:48→21:00)
[2018-08-04] MEDS: Pantoprazole TAB * 40 MG TAB PO SCH (08:48)
[2018-08-04] MEDS: Lisinopril TAB* 5 MG PO SCH (08:48)
[2018-08-04] MEDS: Aspirin 81 mg CHEW TAB* 81 MG TAB.CHEW PO SCH (08:48)
[2018-08-04] MEDS: Insulin GLARGINE(*) 1 UNITS UNIT SUBCUT SCH (13:20)
[2018-08-04] MEDS: NFT: IPRATROPIUM BR (NF)0.03% NASAL 1 SPRAY BTL BOTH NARES SCH ×2 (13:21→20:54)
--- NOTE | 2018-08-04 16:05 | PN ---
Subjective Date of Service: 08/04/18 Interval History: Patient has no new complaints. She had another episode of diarrhea this morning , better now. Denies SOB, chest pain. Family History: Unchanged from Admission Social History: Unchanged from Admission Past Medical History: Unchanged from Admission Objective Active Medications: Acetaminophen (Tylenol Tab*) 650 mg PO Q4H PRN PRN Reason: FEVER/PAIN Last Admin: 08/01/18 21:20 Dose: 650 mg Albuterol (Ventolin 2.5 Mg/3 Ml Neb.Rivka*) 2.5 mg INH QID PRN PRN Reason: SHORTNESS OF BREATH Albuterol (Ventolin Hfa Inhaler*) 2 puff INH Q6H PRN PRN Reason: SHORTNESS OF BREATH Ascorbic Acid (Vitamin C Tab*) 500 mg PO DAILY [facility] Last Admin: 08/04/18 08:47 Dose: 500 mg Aspirin (Aspirin 81 Mg Chew Tab*) 81 mg PO DAILY [facility] Last Admin: 08/04/18 08:48 Dose: 81 mg Atorvastatin Calcium (Lipitor*) 10 mg PO DAILY [facility] Last Admin: 08/04/18 08:48 Dose: 10 mg Carvedilol (Coreg Tab*) 12.5 mg PO BID [facility] Last Admin: 08/04/18 08:48 Dose: 12.5 mg Cyanocobalamin (Vitamin B12 Tab*) 500 mcg PO BID [facility] Last Admin: 08/04/18 08:47 Dose: 500 mcg Dextrose (D50w Syringe 50 Ml*) 12.5 gm IV PUSH .FOR FS < 60 - SS PRN PRN Reason: FS < 60 Ferrous Sulfate (Ferrous Sulfate Tab*) 325 mg PO DAILY [facility] Last Admin: 08/04/18 08:47 Dose: 325 mg Guaifenesin (Mucinex*) 600 mg PO DAILY [facility] Last Admin: 08/04/18 08:47 Dose: 600 mg Heparin Sodium (Porcine) (Heparin Vial(*)) 5,000 units SUBCUT Q8HR [facility] Last Admin: 08/04/18 13:18 Dose: 5,000 units Insulin Glargine (Lantus(*)) 10 units SUBCUT Q24H [facility] Last Admin: 08/04/18 13:20 Dose: 10 unit Insulin Human Lispro (Humalog*) 0 units SUBCUT [facility]; Protocol Last Admin: 08/04/18 13:13 Dose: Not Given Ipratropium [place] (Ipratropium [place]) 2 spray BOTH NARES BID [facility] Last Admin: 08/04/18 13:21 Dose: Not Given Levothyroxine Sodium (Synthroid Tab*) 50 mcg PO DAILY@0600 [facility] Last Admin: 08/04/18 05:17 Dose: 50 mcg Lisinopril (Prinivil Tab*) 2.5 mg PO DAILY [facility] Last Admin: 08/04/18 08:48 Dose: 2.5 mg Loperamide HCl (Imodium Cap*) 2 mg PO QID PRN PRN Reason: DIARRHEA Last Admin: 08/04/18 08:47 Dose: 2 mg Ondansetron HCl (Zofran Inj*) 4 mg IV Q4H PRN PRN Reason: NAUSEA/VOMITING Pantoprazole Sodium (Protonix Tab*) 40 mg PO DAILY [facility] Last Admin: 08/04/18 08:48 Dose: 40 mg Torsemide (Torsemide) 20 mg PO Q48H [facility] Last Admin: 08/03/18 10:27 Dose: 20 mg Vital Signs - 8 hr 08/04/18 08/04/18 08/04/18 08:13 08:47 11:32 Temperature 36.4 C Pulse Rate 59 Respiratory 16 16 19 Rate Blood Pressure 140/40 130/43 (mmHg) O2 Sat by Pulse 100 Oximetry Oxygen Devices in Use Now: None Appearance: elderly, alert Eyes: No Scleral Icterus Ears/Nose/Mouth/Throat: Clear Oropharnyx Neck: NL Appearance and Movements; NL JVP Respiratory: Symmetrical Chest Expansion and Respiratory Effort Cardiovascular: NL Sounds; No Murmurs; No JVD Extremities: - - 1+ edema bilat LE Neurological: Alert and Oriented x 3 Lines/Tubes/Other Access: Clean, Dry and Intact Peripheral IV Nutrition: Taking PO's Result Diagrams: 08/03/18 06:03 08/03/18 06:03 Assess/Plan/Problems-Billing Assessment: 78 year old woman with CHF exacerbation, COPD, mobility issues - Patient Problems (1) CHF (congestive heart failure) Current Visit: Yes Status: Acute Priority: High Code(s): I50.9 - HEART FAILURE, UNSPECIFIED SNOMED Code(s): 25462817 Comment: -Compensated. -Continue Carvedilol, lisinopril, dose torsemide lowered during hospital stay. (2) Diarrhea Current Visit: Yes Status: Acute Priority: Medium Code(s): R19.7 - DIARRHEA, UNSPECIFIED SNOMED Code(s): 78206010 Comment: -No recent antibiotic exposure -C diff negative -patient has IBS-diarrhea (3) DVT prophylaxis Current Visit: Yes Status: Acute Priority: Low Code(s): DXL7999 - SNOMED Code(s): 245024248 Comment: -Continue SC heparin Status and Disposition: to [facility] when bed available
[2018-08-04] MEDS ORDERED: Atorvastatin* 10 MG TAB PO SCH (19:00)
--- NOTE | 2018-08-04 19:40 | TRS ---
CC: Vanesa Alexandra NP; Dr. Lowry * TRANSFER SUMMARY: DATE OF ADMISSION: 07/29/18 DATE OF DISCHARGE: Anticipated as 08/05/18 PRIMARY DIAGNOSIS: Acute and chronic systolic heart failure. SECONDARY DIAGNOSES: 1. Chronic obstructive pulmonary disease. 2. History of pneumonia. 3. Aortic valve disease status post TAVR. 4. Irritable bowel syndrome with diarrhea. 5. Coronary artery disease. 6. Ischemic cardiomyopathy with ejection fraction of 30% to 35%. 7. Polyclonal hypergammaglobulinemia. 8. Anemia requiring transfusions in the past. 9. Atrial fibrillation, pacemaker. 10. Gastroesophageal reflux disease. 11. Peptic ulcer disease. 12. Chronic kidney disease. 13. Rheumatoid arthritis. 14. Hypothyroid. 15. Hypertension. 16. Hyperlipidemia. 17. Type 2 diabetes. 18. History of bariatric surgery with Florentin-en-Y procedure. 19. Osteoarthritis. MEDICATIONS ON DISCHARGE: 1. Acetaminophen 650 mg p.o. q.4 hours p.r.n. pain. 2. Albuterol nebulizer 4 times a day p.r.n. wheezing, albuterol inhaler 2 puffs 4 times a day p.r.n. wheezing as an alternative to the nebulizer. 3. Vitamin C 500 mg p.o. daily. 4. Aspirin 81 mg p.o. daily. 5. Atorvastatin 10 mg p.o. q.h.s. 6. Carvedilol 12.5 mg p.o. b.i.d. 7. Vitamin B12 500 mcg p.o. daily. 8. Iron 325 mg p.o. daily. 9. Mucinex 600 mg p.o. daily. 10. Lantus 10 units subcutaneous q.p.m. 11. Ipratropium bromide nasal spray 2 sprays both nostrils daily. 12. Levothyroxine 50 mcg p.o. daily. 13. Lisinopril 2.5 mg p.o. daily. 14. Loperamide 2 mg p.o. 4 times a day p.r.n. diarrhea. 15. Pantoprazole 40 mg p.o. daily. 16. Torsemide 20 mg p.o. every 48 hours. HOSPITAL COURSE: A 78-year-old woman with multiple comorbidities as above, who presented to the emergency department with increasing shortness of breath and fatigue. She had gained 30 pounds of fluid in the past 4 weeks. The patient was assessed to have congestive heart failure. She was treated with diuretics, placement of a Huynh catheter, strict intake and output monitoring. She diuresed well in the first 48 hours, and so was switched from IV furosemide to oral torsemide. The patient had an echocardiogram on 07/31/18 that showed ejection fraction of 30% to 35%, global systolic function is reduced. There are no major valve abnormalities. The patient was monitored on telemetry without significant arrhythmias. Her baseline EKG is ventricular paced. LABORATORY TESTING: On admission showed troponin elevated at 0.04, which fell to 0.03 the day after admission. The patient had a hemoglobin of 9.6 on admission and 8.3 on 08/03/18. Her blood sugar was running in the 300s the day prior to discharge, but with additional Lantus, it fell to a range of 64 to 176. Other important lab tests during the hospital stay include a BNP of 1275, TSH 4.15. Creatinine was 1.13 on admission, 1.10 on discharge. The patient has had significant episodes of diarrhea, which she cannot get herself up to the bathroom in time to manage this herself. She appears to have irritable bowel syndrome. She had a stool test for C. diff which was negative. She also had a urinalysis. Urine culture grew Klebsiella pneumoniae, but she had no urinary symptoms, so this was not treated directly with antibiotics. DISPOSITION: To half-way facility for rehabilitation. CONDITION: Stable. DIET: Heart healthy diet. ACTIVITY: She will be as tolerated walk with a walker, transfer to chair. STATUS: Inpatient. TIME SPENT: I spent more than 30 minutes with the patient on the day of discharge in completing necessary paperwork for the assisted transfer that should happen tomorrow. [id number]/CPS #: [id number] MTDD
[2018-08-05] MEDS: Heparin VIAL(*) 5000 UNITS/ML VIAL (FIVE THOUSAND) SUBCUT SCH ×2 (05:25→13:08)
[2018-08-05] MEDS: Levothyroxine TAB* 50 MCG TAB PO SCH (05:25)
[2018-08-05] MEDS: Insulin LISPRO* 1 UNITS UNIT SUBCUT SCH ×2 (08:18→11:32)
[2018-08-05] MEDS: NFT: IPRATROPIUM BR (NF)0.03% NASAL 1 SPRAY BTL BOTH NARES SCH (08:23)
[2018-08-05] MEDS: Lisinopril TAB* 5 MG PO SCH (08:30)
[2018-08-05] MEDS: Ferrous Sulfate TAB* 325 MG PO SCH (08:30)
[2018-08-05] MEDS: Ascorbic Acid TAB* 500 MG PO SCH (08:31)
[2018-08-05] MEDS: Pantoprazole TAB * 40 MG TAB PO SCH (08:31)
[2018-08-05] MEDS: guaiFENesin ER TAB 600 MG PO SCH (08:31)
[2018-08-05] MEDS: Torsemide TAB 10 MG PO SCH (08:31)
[2018-08-05] MEDS: Aspirin 81 mg CHEW TAB* 81 MG TAB.CHEW PO SCH (08:31)
[2018-08-05] MEDS: Cyanocobalamin TAB* 500 MCG PO SCH (08:31)
[2018-08-05] MEDS: Carvedilol TAB* 6.25 MG PO SCH (08:31)
[2018-08-05 11:49] VITALS: BP 127/64
[2018-08-05] MEDS: Insulin GLARGINE(*) 1 UNITS UNIT SUBCUT SCH (13:07)
== END 2018-08-05 14:30 | DRG 291 ==
LOC: ED 18:15 → MEDTELE 22:52
PROVIDERS: ADMIT Internal Medicine; ATTEND Internal Medicine
DX: I13.0 Hypertensive heart and chronic kidney disease with heart failure and stage 1 through stage 4 chronic kidney disease, or unspecified chronic kidney disease (principal); I50.23 Acute on chronic systolic (congestive) heart failure; E86.0 Dehydration; E11.22 Type 2 diabetes mellitus with diabetic chronic kidney disease; J44.9 Chronic obstructive pulmonary disease, unspecified; I25.5 Ischemic cardiomyopathy; D89.0 Polyclonal hypergammaglobulinemia; D64.9 Anemia, unspecified; I48.91 Unspecified atrial fibrillation; M06.9 Rheumatoid arthritis, unspecified; N18.3 Chronic kidney disease, stage 3 (moderate); I34.0 Nonrheumatic mitral (valve) insufficiency; K27.9 Peptic ulcer, site unspecified, unspecified as acute or chronic, without hemorrhage or perforation; K58.0 Irritable bowel syndrome with diarrhea; K21.9 Gastro-esophageal reflux disease without esophagitis; I25.10 Atherosclerotic heart disease of native coronary artery without angina pectoris; E03.9 Hypothyroidism, unspecified; R74.8 Abnormal levels of other serum enzymes; E78.5 Hyperlipidemia, unspecified; M19.90 Unspecified osteoarthritis, unspecified site; R26.2 Difficulty in walking, not elsewhere classified; Z95.2 Presence of prosthetic heart valve; Z95.0 Presence of cardiac pacemaker; Z98.84 Bariatric surgery status; Z79.1 Long term (current) use of non-steroidal anti-inflammatories (NSAID); Z79.82 Long term (current) use of aspirin; Z79.4 Long term (current) use of insulin; Z79.51 Long term (current) use of inhaled steroids; Z79.899 Other long term (current) drug therapy; Z88.1 Allergy status to other antibiotic agents; Z88.5 Allergy status to narcotic agent; Z88.2 Allergy status to sulfonamides; Z82.49 Family history of ischemic heart disease and other diseases of the circulatory system; Z83.3 Family history of diabetes mellitus; Z87.891 Personal history of nicotine dependence
CPT/HCPCS: 36415; 71045; 80048; 80053; 81003; 81015; 83605; 83735; 83880; 84443; 84484; 85025; 85610; 86850; 86900; 86901; 87077; 87086; 87186; 87493; 93005; 93306; 99283; A9270-GY; G8978-GP-CK; G8979-GP-CI; G8987-GO-CK; J1644; J1940